=== PATIENT | female | born 1980 | race Caucasian/White ===

== ENCOUNTER 2020-09-05 11:17 | Outpatient (CLI) | payer MEDICARE, MEDICAID, SELFPAY ==
--- NOTE | ~2020-09-05 | XR_ITS ---
EXAMINATION: XR knee LT 3V DATE: 09/05/2020 11:32 INDICATION: Left knee pain. TECHNIQUE: 3 views of left knee were obtained. COMPARISON: None. FINDINGS: Bone alignment is normal. No fracture. There is mild tricompartmental osteoarthritis. No kn ee joint effusion. IMPRESSION: 1. Mild left knee osteoarthritis. Reviewed, dictated and finalized at location A. COLLECTOR
--- NOTE | ~2020-09-05 | XR_ITS ---
EXAMINATION: XR knee RT 3V DATE: 09/05/2020 11:32 INDICATION: Right knee pain. TECHNIQUE: 3 views of right knee were obtained. COMPARISON: None. FINDINGS: Bone alignment is normal. No fracture. There is mild tricompartmental osteoarthritis. No kn ee joint effusion. IMPRESSION: 1. Mild right knee osteoarthritis. Reviewed, dictated and finalized at location A. NG MACHINE ADJUSTER
== END 2020-09-05 11:18 | disposition home or self-care (01) ==
PROVIDERS: PCP Internal Medicine; Visit Provider Nurse Practitioner
DX: M25.569 Pain in unspecified knee (principal); M17.0 Bilateral primary osteoarthritis of knee
CPT/HCPCS: 73562

== ENCOUNTER 2021-07-03 12:26 | Emergency (ER) | payer MEDICARE, MEDICAID, SELFPAY ==
--- NOTE | ~2021-07-03 | XR_ITS ---
EXAMINATION: XR chest 1V portable EXAM DATE: 07/03/2021 19:18 INDICATION: COVID Fatigue 06/25,Weakness,Hx Asthma,Htn. TECHNIQUE: Portable AP frontal chest x-ray was obtained. There is no prior study for comparison. FINDINGS: The lungs are clear. There are no pleural effusions. Cardiac silhouette is prominent but magnified on this AP technique. There is no pneumothorax suspected. The bones and soft tissues are unremarkable. IMPRESSION: No acute cardiopulmonary findings. Reviewed, dictated and finalized at location A. 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
[2021-07-03 13:34] VITALS: BP 136/84; PULSE 59; RESP 18; TEMP 36.6; O2SAT 100
--- NOTE | 2021-07-03 15:24 | PC.NURSE ---
SPOKE WITH PT'S MOTHER WHO STATES THAT DR MELENDEZ WISHES HER TO BE SEEN IN ED BECAUSE SHE IS COVID +, HASN'T EATEN OR DRANK IN THE PAST FEW DAYS AND NEEDS AN XRAY.
--- NOTE | 2021-07-03 18:09 | PC.NURSE ---
CALLED REQUESTING THAT WE DON'T GIVE PT ANY REMDESIVIR BECAUSE THEY HAVE DONE A LOT OF RESEARCH ON IT AND THEY KNOW A FRIEND THAT WAS COVID +, GOT THE MEDICINE AND FROM IT
[2021-07-03 18:38] VITALS: BP 124/66; PULSE 51; RESP 18; TEMP 36.9; O2SAT 100
[2021-07-03] MEDS: SODIUM CHLORIDE 0.9% IV 1,000 ML 999 ML IV CONT (19:23)
[2021-07-03 19:33] LABS: Basophils Percent Auto 0.4 % (0.2-1.2); Hematocrit 43.9 % (37.0-47.0); Immature Granulocyte Absolute 0.04 K/mm3 (0.00-0.031); Immature Granulocyte Percent A 0.4 % (0-0.5); Lymphocytes Percent Auto 20.6 % (18.3-44.2); Mean Corpuscular HGB Conc 31.9 g/dl (32-36); Mean Corpuscular Hemoglobin 26.8 pg (26-34); Mean Corpuscular Volume 83.9 fl (80-100); Mean Platelet Volume 10.9 fl (7.4-10.4); Monocytes Absolute Auto 0.6 K/mm3 (0.1-0.6); Monocytes Percent Auto 5.9 % (2.6-8.5); Neutrophils Absolute Auto 7.8 K/mm3 (1.3-6.7); Neutrophils Percent Auto 72.7 % (45.5-73.1); Platelet Count Result 262 k/mm3 (150-375); Red Blood Count 5.23 M/mm3 (4.2-5.4); Red Cell Distribution Width 14.6 % (11.5-14.5); White Blood Count 10.7 K/mm3 (4.5-10.0)
[2021-07-03 19:43] LABS: Alanine Aminotransferase 37 U/L (4-35); Albumin Level 4.6 g/dL (3.5-5.1); Alkaline Phosphatase 104 U/L (38-126); Anion Gap 11 mmol/L (8-16); Aspartate Amino Transferase 44 U/L (14-36); Bilirubin,Total 0.5 mg/dL (0.2-1.3); Blood Urea Nitrogen 14 mg/dL (7-17); Calcium 9.2 mg/dL (8.4-10.2); Carbon Dioxide 30 mmol/L (22-30); Chloride 100 mmol/L (98-107); Estimated CRCL calculation 120 ml/min; Estimated Glomerular Filt Rate > 60; Glucose 115 mg/dL (65-110); Potassium 3.6 mmol/L (3.4-5.0); Sodium 141 mmol/L (137-145)
--- NOTE | 2021-07-03 20:27 | ED.GENADULT ---
HPI - General Adult General Chief complaint: Weakness <VIKTORIA Agudelo Last Filed: 07/03/21 20:36> Stated complaint: covid+/headache/weakaness <VIKTORIA Agudelo Last Filed: 07/03/21 20:36> Time Seen by Provider: 07/03/21 18:37 <Winston Simpson PA-C - Last Filed: 07/03/21 20:36> Source: patient <VIKTORIA Agudelo Last Filed: 07/03/21 20:36> Mode of arrival: wheelchair <VIKTORIA Agudelo Last Filed: 07/03/21 20:36> Limitations: no limitations <VIKTORIA Agudelo Last Filed: 07/03/21 20:36> History of Present Illness HPI narrative: Patient is a 40-year-old female with chief complaint of fatigue, headache, 1 episode of loose stool and feeling warm. Patient reports that she tested positive for Covid on June 17. Patient reports she has not taken any medications to alleviate her symptoms at this time. Patient reports that she is unvaccinated. Patient reports that she feels that her Covid symptoms should be resolved at this point. Patient denies chest pain or shortness of breath. Patient denies any neurological deficits. Patient denies any head impact, change in vision or hearing. <Winston Simpson PA-C - Last Filed: 07/03/21 20:36> Related Data Home medications: Home Medications Medication Instructions Recorded Confirmed hydrocodone 7.5 mg-acetaminophen 1 tablet PO Q6H PRN 06/08/19 06/11/21 325 mg tablet lactobacillus combination no.8 3 3,000 mmu cells PO DAILY 06/08/19 06/11/21 billion cell capsule linaclotide 145 mcg capsule 145 mcg PO DAILY 06/08/19 06/11/21 multivitamin 1 tablet PO DAILY 06/08/19 06/11/21 cyclobenzaprine 10 mg tablet 10 mg PO BID PRN tablet 10/19/19 06/11/21 <VIKTORIA Agudelo Last Filed: 07/03/21 20:36> Allergies/adverse reactions: Allergies Allergy/AdvReac Type Severity Reaction Status Date / Time NSAIDS (Non-Steroidal Allergy unknown Verified 07/03/21 18:44 Anti-Inflamma <Winston Simpson PA-C - Last Filed: 07/03/21 20:36> Review of Systems Review of Systems: CONSTITUTIONAL: Reports fatigue denies fever, chills, or sweats. EYES: Denies visual changes, redness, or discharge. ENT: Denies rhinorrhea, congestion, sore throat, or otalgia. CARDIOVASCULAR: Denies chest pain, palpitations, or edema. RESPIRATORY: Denies cough or dyspnea. GASTROINTESTINAL: Denies abdominal pain, nausea, vomiting, or persistent diarrhea. GENITOURINARY: Denies dysuria or hematuria. SKIN: Denies rash or itching. MUSCULOSKELETAL: Denies back pain, joint pain, or myalgia. NEUROLOGIC: Reports headache, denies numbness, dizziness PSYCHIATRIC: Denies anxiety or depression. <Winston Simpson PA-C - Last Filed: 07/03/21 20:36> [facility] Past Medical History Medical History: Medical History (Updated 07/03/21 @ 20:32 by Winston Simpson PA-C) Allergies Arthritis Asthma Chicken pox Chronic bronchitis Constipation Depression Diarrhea Heartburn Hemorrhoids Hernia Herniated disc History of blood clots HTN (hypertension) Migraine headache Ovarian mass removed Pneumonia Right knee pain Tumors <Winston Simpson PA-C - Last Filed: 07/03/21 20:36> Surgical History Surgical History: Surgical History (Updated 06/11/21 @ 08:44 by Magalie Blake CMA) H/O hernia repair H/O toe surgery 04/12/2021 History of removal of laparoscopic gastric banding device <Winston Simpson PA-C - Last Filed: 07/03/21 20:36> Family History Family History: Family History Sibling Hypertension Mother Hypertension History of varicose veins Gout Other Diabetes mellitus Family history of allergic disorder Family history of malignant neoplasm of male breast <Winston Simpson PA-C - Last Filed: 07/03/21 20:36> Social History Social History: Social History Smoking status: Never smoker Alcohol intake:
--- NOTE | 2021-07-03 20:38 | PC.NURSE ---
Spoke with mother, gave update per emergency contacts.
[2021-07-03 21:05] VITALS: BP 117/86; PULSE 52; RESP 18; TEMP 36.9; O2SAT 97
== END 2021-07-03 21:05 | disposition home or self-care (01) ==
PROVIDERS: Physician Assistant; Emergency Provider General Practice; PCP Internal Medicine
DX: U07.1 COVID-19 (principal)
CPT/HCPCS: 36415; 71045; 80053; 85025; 96361; 96374; 96375; 99284; J0131; J1100; J7030

== ENCOUNTER 2022-05-16 11:24 | Outpatient (CLI) | payer MEDICARE, MEDICAID, SELFPAY ==
[2022-05-16 13:06] LABS: Basophils Absolute Auto 0.1 K/mm3 (0.0-0.1); Basophils Percent Auto 0.7 % (0.2-1.2); Eosinophils Absolute Auto 0.3 K/mm3 (0-0.3); Eosinophils Percent Auto 2.4 % (0-4.4); Hematocrit 36.3 % (37.0-47.0); Hemoglobin 10.5 g/dL (12.0-15.0); Immature Granulocyte Absolute 0.03 K/mm3 (0.00-0.031); Immature Granulocyte Percent A 0.3 % (0-0.5); Lymphocytes Absolute Auto 3.26 K/mm3 (0.9-3.2); Lymphocytes Percent Auto 28.7 % (18.3-44.2); Mean Corpuscular HGB Conc 28.9 g/dl (32-36); Mean Corpuscular Hemoglobin 21.4 pg (26-34); Mean Corpuscular Volume 74.1 fl (80-100); Mean Platelet Volume 11.1 fl (7.4-10.4); Monocytes Absolute Auto 0.9 K/mm3 (0.1-0.6); Monocytes Percent Auto 7.8 % (2.6-8.5); Neutrophils Absolute Auto 6.8 K/mm3 (1.3-6.7); Neutrophils Percent Auto 60.1 % (45.5-73.1); Platelet Count Result 381 k/mm3 (150-375); Red Cell Distribution Width 18.2 % (11.5-14.5); White Blood Count 11.4 K/mm3 (4.5-10.0)
[2022-05-16 13:12] LABS: Alanine Aminotransferase 36 U/L (6-35); Albumin Level 4.4 g/dL (3.5-5.1); Alkaline Phosphatase 188 U/L (38-126); Anion Gap 8 mmol/L (8-16); Aspartate Amino Transferase 47 U/L (14-36); Bilirubin,Total 0.2 mg/dL (0.2-1.3); Blood Urea Nitrogen 10 mg/dL (7-17); Calcium 8.9 mg/dL (8.4-10.2); Carbon Dioxide 32 mmol/L (22-30); Chloride 101 mmol/L (98-107); Estimated Glomerular Filt Rate > 60; Glucose 93 mg/dL (65-110); Potassium 4.4 mmol/L (3.4-5.0); Sodium 141 mmol/L (137-145)
== END 2022-05-16 11:25 | disposition home or self-care (01) ==
LOC: ANHGOSHLAB 11:27
PROVIDERS: PCP Internal Medicine; Visit Provider Nurse Practitioner
DX: D64.9 Anemia, unspecified (principal); Z13.29 Encounter for screening for other suspected endocrine disorder; I11.0 Hypertensive heart disease with heart failure
CPT/HCPCS: 36415; 80053; 85025

== ENCOUNTER 2023-05-15 13:12 | Outpatient (CLI) | payer MEDICARE, MEDICAID, SELFPAY ==
--- NOTE | ~2023-05-15 | XR_ITS ---
XR lumbar spine 2-3V DATE: 05/15/2023 13:54 INDICATION: Thoracic and lumbar back pain TECHNIQUE: AP, lateral, coned lateral lumbosacral views COMPARISON: August 05, 2017 MRI lumbar spine FINDINGS: Again noted are bilateral L5 pars interarticularis defects with grade 2 anterolisthesis of L5-S1. Moderate loss of interspace height at L4-5. There is moderately severe loss of interspace height at L5-S1, likely due to degenerative disc diseas e. No other fracture or bone destruction. The included lower thoracic and lumbar pedicles appear intact. Normal alignment at the sacroiliac joints. Surgical clips, right upper quadrant, likely due to cholecystectomy. IMPRESSION: Degenerative disc disease at L4-5 and particularly L5-S1 Bilateral L5 pars intra-articular is defects with grade 2 anterolisthesis at L5-S1 Reviewed, dictated and finalized at location B. OL BUS DISPATCHER IMPRESSION: Degenerative disc disease at L4-5 and particularly L5-S1 Bilateral L5 pars intra-articular is defects with grade 2 anterolisthesis at L5 -S1
--- NOTE | ~2023-05-15 | XR_ITS ---
XR thoracic spine 3V DATE: 05/15/2023 13:54 INDICATION: Thoracic, lumbar and cervical spine pain TECHNIQUE: AP, lateral, swimmer views COMPARISON: None FINDINGS: Severe degenerative disease at C6-7. Very mild thoracic dextroscoliosis. No fracture or dislocation or bone destruction of the thoracic spine. The thoracic pedicles are intac t. No paraspinal soft tissue thickening. There is mild degenerative spurring of the lower thoracic spine. Surgical clips, right upper quadrant, likely due to cholecystectomy. IMPRESSION: Very mild thoracic dextroscoliosis Mild degenerative spurring of the lower thoracic spine Reviewed, dictated and finalized at location B. TH SAFETY SPECIALIST
--- NOTE | ~2023-05-15 | XR_ITS ---
CORRECTED REPORT Exam description [facility] [place] 05/18/23 This report was recreated on 05/18/23. Original report was AGENT XR cervical spine 2-3V DATE: 05/15/2023 13:54 INDICATION: Neck pain, cervical radiculopathy TECHNIQUE: AP, open-mouth, lateral, swimmer views COMPARISON: 11/07/2015 MR cervical spine 03/17/2014 cervical spine FINDINGS: There is straightening of the cervical spine which may be due to muscle spasm. C1 and C2 are normally aligned and the odontoid process is intact. No fracture or dislocation or locked facet or prevertebral soft tissue swelling. Mild degenerative disc disease at C5-6. Moderately severe degenerative disc disease at C6-7. Uncovertebral joint spurring is noted C5-6 and C6-7. A right temporal frontal parietal bone flap is secured by multiple plates and screws. IMPRESSION: Straightening of cervical spine Lower cervical spondylosis Reviewed, dictated and finalized at location B. AGENT MTDD
== END 2023-05-15 13:13 | disposition home or self-care (01) ==
PROVIDERS: PCP Internal Medicine; Visit Provider Pain Medicine Interventional Pain Medicine
DX: M51.16 Intervertebral disc disorders with radiculopathy, lumbar region (principal); M47.22 Other spondylosis with radiculopathy, cervical region
CPT/HCPCS: 72040; 72050; 72072; 72100

== ENCOUNTER 2023-08-03 13:54 | Outpatient (CLI) | payer MEDICARE, MEDICAID, SELFPAY ==
--- NOTE | ~2023-08-03 | XR_ITS ---
XR shoulder LT min 2V DATE: 08/03/2023 14:13 INDICATION: Left shoulder pain TECHNIQUE: 4 views COMPARISON: None FINDINGS: No fracture or dislocation, periosteal reaction or bone destruction or abnormal soft tissue calcification. IMPRESSION: Negative Reviewed, dictated and finalized at location B. PAPER WRITER IMPRESSION: Negative
--- NOTE | ~2023-08-03 | XR_ITS ---
XR shoulder RT min 2V DATE: 08/03/2023 14:12 INDICATION: Right shoulder pain TECHNIQUE: 4 views COMPARISON: None FINDINGS: No fracture or dislocation, periosteal reaction or bone destruction or abnormal soft tissue calcification. IMPRESSION: No significant abnormality Reviewed, dictated and finalized at location B. ANET SPECIALIST IMPRESSION: No significant abnormality
== END 2023-08-03 13:55 | disposition home or self-care (01) ==
PROVIDERS: PCP Internal Medicine; Visit Provider Pain Medicine Interventional Pain Medicine
DX: M25.511 Pain in right shoulder (principal); M25.512 Pain in left shoulder
CPT/HCPCS: 73030

== ENCOUNTER 2023-09-11 12:53 | Outpatient (CLI) | payer MEDICARE, MEDICAID, SELFPAY ==
--- NOTE | ~2023-09-11 | MR_ITS ---
EXAMINATION: MR shoulder RT wo con DATE: 09/11/2023 13:35 INDICATION: Right shoulder pain TECHNIQUE: Magnetic resonance imaging (MRI) of the right shoulder was performed without intravenous c ontrast. Sequences included axial PD-weighted FS FSE, coronal oblique PD-weighted FS FSE, coronal obl ique T2-weighted FS FSE, sagittal PD-weighted FS FSE, and sagittal T1-weighted SE. COMPARISON: None. FINDINGS: Coracoacromial arch: The acromion undersurface is curved in morphology (type II). The coracoacromial ligament is normal. M inimal acromioclavicular osteoarthritis. Rotator cuff: Mild tendinopathy without tear at the conjoined portion of the supraspinatus and infraspinatus tendon s. The teres minor and subscapularis tendons are normal. Normal rotator cuff muscle bulk and signal. There is replacement of the normal T1 hyperintense fat signal at the rotator cuff interval with thick ened low signal intensity tissue which can be seen with adhesive capsulitis. Biceps tendon, glenoid labrum and glenohumeral cartilage: Long head of the biceps tendon is normal. Glenoid labrum is normal. Glenohumeral cartilage is normal. Fluid: Physiologic amount of fluid in the glenohumeral joint and biceps tendon sheath. No loose osteochondr al bodies. No abnormal fluid signal in the subacromial/subdeltoid bursa to suggest bursitis. Bones: Normal marrow signal with no edema, fracture or abnormal marrow replacing process. IMPRESSION: 1. Mild tendinopathy without tear at the conjoined portion of the supraspinatus and infraspinatus ten dons. 2. Thickened low signal intensity soft tissue replacing the normal fat at the rotator cuff interval w hich can be seen with adhesive capsulitis which is a clinical diagnosis. Reviewed, dictated and finalized at location B. IMPRESSION: 1. Mild tendinopathy without tear at the conjoined portion of the supraspinatus and infraspinatus tendons. 2. Thickened low signal intensity soft tissue replacing the normal fat at the r otator cuff interval which can be seen with adhesive capsulitis which is a clin ical diagnosis.
== END 2023-09-11 12:54 | disposition home or self-care (01) ==
PROVIDERS: PCP Internal Medicine; Visit Provider Pain Medicine Interventional Pain Medicine
DX: M75.21 Bicipital tendinitis, right shoulder (principal)
CPT/HCPCS: 73221

== ENCOUNTER 2023-11-21 10:09 | Outpatient (CLI) | payer MEDICARE, MEDICAID, SELFPAY ==
--- NOTE | ~2023-11-21 | XR_ITS ---
Lumbosacral Spine: AP and lateral views Clinical History: Pain Findings: Suspected bilateral L5 pars interarticularis defects, with 15 mm anterolisthesis of L5 over S1. There is moderate to advanced facet arthropathy throughout the lumbar spine. There is moderate d egenerative disc narrowing at L4-L5 and L5-S1. The sacroiliac joints are normally outlined. Impression: Probable bilateral L5 pars interarticularis defects, with 15 mm anterolisthesis of L5 over S1. [id number] degenerative spondylosis otherwise, as detailed above. Reviewed, dictated and finalized at location . Impression: Probable bilateral L5 pars interarticularis defects, with 15 mm anterolisthesis of L5 over S1. [id number] degenerative spondylosis otherwise, as detailed above.
--- NOTE | ~2023-11-21 | XR_ITS ---
Thoracic spine: Clinical Indication: Radiculopathy AP and lateral views were performed. No fracture is seen. There is normal alignment of the vertebrae. Mild degenerative disc changes are present thoracic spine. Paravertebral soft tissues appear normal. Impression: Mild diffuse degenerative disc changes. Reviewed, dictated and finalized at [facility]. Impression: Mild diffuse degenerative disc changes.
== END 2023-11-21 10:10 | disposition home or self-care (01) ==
LOC: ANHIMG 10:10
PROVIDERS: PCP Internal Medicine; Visit Provider Pain Medicine Interventional Pain Medicine
DX: M43.17 Spondylolisthesis, lumbosacral region (principal); M47.897 Other spondylosis, lumbosacral region; M51.34 Other intervertebral disc degeneration, thoracic region
CPT/HCPCS: 72072; 72100

== ENCOUNTER 2024-01-05 11:15 | Outpatient (CLI) | payer MEDICARE, MEDICAID, SELFPAY ==
--- NOTE | ~2024-01-05 | MR_ITS ---
Procedure: MR shoulder LT wo con Ordering provider: Jignesh Darling MD History: . LEFT SHOULDER PAIN . Comparison: August 26, 2009 Technique: MRI left shoulder without contrast. FINDINGS: ACROMIOCLAVICULAR JOINT: Mild arthropathy. No medial coracoacromial arch stenosis. ROTATOR CUFF: The supraspinatus tendon is normal in signal without evidence for tendinosis or tear. N o subacromial subdeltoid bursitis. No evidence for subcoracoid impingement or subscapularis tendinosi s or tear. PROXIMAL BICEPS TENDON: The proximal biceps tendon and biceps labral complex are normal. The rotator interval is normal as visualized without intraarticular contrast. INFERIOR GLENOHUMERAL LIGAMENT COMPLEX: Normal anterior and posterior bands. Normal axillary pouch. LABRUM: The superior labrum is normal. The anteroinferior labrum is normal. The posterior labrum is normal. BONES: Small area of high signal on T2-weighted images which may indicate bone contusion adjacent to the insertion of the subscapularis tendon suggestive of tendinosis. Otherwise, Marrow signal is othe rwise normal. GLENOHUMERAL JOINT SPACE: The glenohumeral joint space shows irregularity of the cartilage which may indicate osteoarthritic changes with narrowing of the joint space. No joint effusion. SUPERFICIAL AND DEEP SOFT TISSUES: Otherwise, normal. No paralabral cyst. IMPRESSION: Mild Osteoarthritic changes of the glenohumeral joint. Highly suggestive bone contusion with adjacent tendinosis of the subscapularis tendon. Reviewed, dictated and finalized at location A.
== END 2024-01-05 11:16 | disposition home or self-care (01) ==
PROVIDERS: PCP Internal Medicine; Visit Provider Pain Medicine Interventional Pain Medicine
DX: M19.012 Primary osteoarthritis, left shoulder (principal)
CPT/HCPCS: 73221

== ENCOUNTER 2024-04-19 13:16 | Outpatient (CLI) | payer MEDICARE, MEDICAID, SELFPAY ==
--- NOTE | ~2024-04-19 | MR_ITS ---
EXAMINATION: MR lumbar spine wo con DATE: 04/19/2024 14:12 INDICATION: Lumbar radiculopathy. TECHNIQUE: Magnetic resonance imaging (MRI) of the lumbar spine was performed without intravenous con trast. Sequences included sagittal T2-weighted FSE, sagittal T2-weighted FS FSE, sagittal T1-weighted FSE, and axial T2-weighted FSE. COMPARISON: Lumbar spine MRI 08/05/2017 FINDINGS: There are chronic bilateral L5 pars defects. There is 11 mm anterolisthesis of L5 on S1. Th ere is mild chronic height loss of L5 vertebral body posteriorly. There is mild chronic anterior wedg ing of T11 and T12 vertebral bodies. There is mildly decreased disc height at L3-L4 and L4-L5 and sev erely decreased disc at L5-S1. The distal spinal cord signal intensity is normal. The conus medullari s is at L1-L2. The following disc levels are specifically discussed: L1-L2: The disc does not extend beyond the endplate margin. There is mild bilateral facet joint osteo arthritis. There is no neural foraminal stenosis. There is no central canal stenosis. L2-L3: The disc does not extend beyond the endplate margin. There is moderate bilateral facet joint o steoarthritis. There is no neural foraminal stenosis. There is no central canal stenosis. L3-L4: The disc is bulging. There is mild bilateral facet joint osteoarthritis. There is mild bilater al neural foraminal stenosis. There is mild central canal stenosis. L4-L5: The disc is bulging with superimposed central extrusion. There is mild bilateral facet joint o steoarthritis. There is mild bilateral neural foraminal stenosis. There is mild central canal stenosi s. L5-S1: The disc is bulging and has an annular fissure. There is moderate bilateral facet joint osteoa rthritis. There is moderate bilateral neural foraminal stenosis. There is no central canal stenosis. IMPRESSION: 1. Chronic bilateral L5 pars defects with grade 2 anterolisthesis of L5 on S1. 2. Severe lower lumbar spondylosis, slightly worsened from 08/05/2017. Reviewed, dictated and finalized at location A.
--- NOTE | ~2024-04-19 | MR_ITS ---
EXAMINATION: MR cervical spine wo con DATE: 04/19/2024 14:11 INDICATION: Radiculopathy. TECHNIQUE: Magnetic resonance imaging (MRI) of the cervical spine was performed without intravenous c ontrast. COMPARISON: Cervical spine MRI 11/07/2015. FINDINGS: Bone alignment is normal. There is mild chronic anterior wedging of C6 vertebral body. Ther e is mildly decreased disc height at C5-C6, moderately decreased disc height at C6-C7, and mildly dec reased disc height at C7-T1. The spinal cord signal intensity is normal. The following disc levels ar e specifically discussed: C2-C3: The disc does not extend beyond the endplate margin. There is no uncovertebral joint osteoarth ritis. There is no facet joint osteoarthritis. There is no neural foraminal stenosis. There is no meche tral canal stenosis. C3-C4: The disc is bulging. There is mild bilateral uncovertebral joint osteoarthritis. There is no f acet joint osteoarthritis. There is no neural foraminal stenosis. There is mild central canal stenosi s. C4-C5: The disc is bulging. There is mild bilateral uncovertebral joint osteoarthritis. There is no f acet joint osteoarthritis. There is no neural foraminal stenosis. There is mild central canal stenosi s. C5-C6: The disc is bulging. There is moderate right and severe left uncovertebral joint osteoarthriti s. There is mild bilateral facet joint osteoarthritis. There is mild bilateral neural foraminal steno sis. There is mild central canal stenosis. C6-C7: The disc is bulging. There is severe bilateral uncovertebral joint osteoarthritis. There is no facet joint osteoarthritis. There is mild bilateral neural foraminal stenosis. There is mild central canal stenosis. C7-T1: There is a central extrusion. There is mild bilateral uncovertebral joint osteoarthritis. Ther e is severe bilateral facet joint osteoarthritis. There is mild bilateral neural foraminal stenosis. There is mild central canal stenosis. IMPRESSION: 1. Moderate cervical spondylosis, worsened from 11/07/2015. Reviewed, dictated and finalized at location A.
--- NOTE | ~2024-04-19 | MR_ITS ---
EXAMINATION: MR thoracic spine wo con DATE: 04/19/2024 14:12 INDICATION: Thoracic radiculopathy. TECHNIQUE: Magnetic resonance imaging (MRI) of the thoracic spine was performed without intravenous c ontrast. COMPARISON: Thoracic spine MRI 08/05/2017 FINDINGS: There is 5 degrees dextrocurvature of thoracic spine. There is mild chronic anterior wedgin g of T11 and T12 vertebral bodies. There is mildly decreased disc height at T10-T11 and T11-T12. Ther e is multilevel facet joint osteoarthritis, severe in the upper thoracic spine. On the left, there is mild neural foraminal stenosis at T2-T3 and T3-T4. At T4-T5, there is a left central protrusion with mild central canal stenosis. At T6-T7, there is a central extrusion with mild central canal stenosis . At T7-T8, there is a central extrusion with mild central canal stenosis. At T8-T9, there is a right central extrusion with mild central canal stenosis. At T10-T11, the disc is bulging with mild centra l canal stenosis. At T11-T12, there is a central protrusion with mild central canal stenosis. The spi nal cord signal intensity is normal. The conus medullaris is at L1. IMPRESSION: 1. Mild thoracic spondylosis, stable from 08/05/2017. Reviewed, dictated and finalized at location A.
== END 2024-04-19 13:17 | disposition home or self-care (01) ==
LOC: ANHIMG 13:18
PROVIDERS: PCP Internal Medicine; Visit Provider Pain Medicine Interventional Pain Medicine
DX: M47.812 Spondylosis without myelopathy or radiculopathy, cervical region (principal); M89.78 Major osseous defect, other site; M47.816 Spondylosis without myelopathy or radiculopathy, lumbar region; M43.17 Spondylolisthesis, lumbosacral region; M47.814 Spondylosis without myelopathy or radiculopathy, thoracic region
CPT/HCPCS: 72141; 72146; 72148

== ENCOUNTER 2024-08-10 11:20 | Outpatient (CLI) | payer MEDICARE, MEDICAID, SELFPAY ==
[2024-08-10 11:52] LABS: Alanine Aminotransferase 30 U/L (6-35); Albumin Level 4.6 g/dL (3.5-5.1); Alkaline Phosphatase 66 U/L (38-126); Anion Gap 10 mmol/L (4-12); Aspartate Amino Transferase 29 U/L (14-36); Bilirubin,Total 0.6 mg/dL (0.2-1.3); Blood Urea Nitrogen 21 mg/dL (7-17); Calcium 9.1 mg/dL (8.4-10.2); Carbon Dioxide 29 mmol/L (22-30); Chloride 101 mmol/L (98-107); Estimated Glomerular Filt Rate > 60; Glucose 61 mg/dL (65-110); Sodium 140 mmol/L (137-145)
--- OUTSIDE RECORDS SUMMARY | 2024-08-10 11:55 | XMS_ITS | Clinical Summary ---
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 Name Role Phone Unavailable Primary Care Provider Unavailabl e Social History Tobacco Use Types Packs/Day Years Used Date Smoking Tobacco: Never Assessed Comments Unknown Sex and Gender Information Value Date Recorded Sex Assigned at Not on file Legal Sex Female 6:42 PM CDT Gender Identity Not on file Sexual Orientation Not on file Plan of Treatment Health Maintenance Due Date Last Done Comments Cervical Cancer Screening Pa p Smear (Age 30 to 64) Every 3 Years 1979 Annual Physical 11/27/1982 Hepatitis C 11/27/1997 DTaP, Tdap and Td Vaccines ( 1 - Tdap) 11/27/1998 Hepatitis B Vaccines (1 of 3 - 19+ 3-dose series) 11/27/1998 Cervical Cancer Screening Pa p with HPV Testing (Age 30 to 64) Every 5 Years 11/27/2009 Cervical Cancer Screening with HPV 11/27/2009 Mammogram Screening 2019 COVID-19 Vaccine (2023-2 5 season) 2024 Influenza Adult (#1) 2024 HPV Vaccines Aged Out No longer eligi ble based on patient's age to complete this topic Meningococcal B Vaccine Aged Out No l onger eligible based on patient's age to complete this topic Meningococcal Vaccine Aged Out No ramiro suzanne eligible based on patient's age to complete this topic Pneumococcal Vaccine: Pediat rics (0 to 5 Years) and At-Risk Patients (6 to 64 Years) Aged Out No longer eligible b ased on patient's age to complete this topic RSV Immunizations Under 20 Months Aged Out No longer eligible based on patient's age to complete this topic
--- OUTSIDE RECORDS SUMMARY | 2024-08-10 11:55 | XMS_ITS | Referral Summary ---
Author Organization [facility] Address [address] [place] [address] Care Team Providers Care Vegetable Loader Name Role Phone Henry Ruiz DO Primary Care Provider [phone] Source Comments [facility],non-owned Affiliates and Associated Physician Practices is amultiple site organization consisting of ambulatory clinics and hospital sitesin [place], [place], [place] and [place]. This disclosure is being madepursuant to the Care Everywhere program and may not contain all information available regarding this patient. Last updated 18.[facility] Encounters Date Type Department Care Team Description 05/28/2024 Refill [facility] [address], [address] [place] [address] Hortensia Covington, MARKETING STRATEGIST-COAL WASHER Refill Request from Last 3 Months Allergies Active Allergy Reactions Criticality Noted Date Comments Morphine Nausea and/or Vomiting,Headache 05/23/2022 Nsaids GI Discomfort High 02/02/2018 Had gastric bypass and can't take oral But can take IV Medications * Be aware that medications may not be up to date on this document. Alwaysverify current medications with the patient. Medication Sig Dispensed Refills Start Date End Date Status cyclobenzaprine (FLEXERIL) 10 MG tablet Take 1 (one) tablet by mouth every 8 hours as needed 1 Active erenumab-aooe (AIMOVIG) 70 MG/ML auto injector pen Inject 1 mL subcutaneously every 30 days Active nitroGLYCERIN (NITROSTAT) 0.4 MG tablet Dissolve 1 (one) tablet under the tongue every 5 minutes as needed for Angina 07/19/2021 Active Additional Information Patient not taking.Reported on 12/14/2023 Probiotic Product (PROBIOTIC & ACIDOPHILUS EX ST) CAPS Take 1 capsule by mouth once daily 07/19/2021 Active atorvastatin (LIPITOR) 40 MG tablet Take 1 (one) tablet by mouth at bedtime 07/19/2021 Active hydrOXYzine HCl (ATARAX) 10 MG tablet Take 1 (one) tablet by mouth 2 times daily as needed for Itching Active butalbital-acetami nophen-caffeine (FIORICET) 50-325-40 MG tablet Take 1 (one) tablet by mouth every 8 hours as needed Active linaCLOtide (LINZESS) 145 MCG capsuleIndications :Chronic constipation Take 1 (one) capsule by mouth daily before breakfast Take on an empty stomach at least 30 minutes prior to first meal of the day. 90 capsule 3 11/14/2021 Active Cyanocobalamin (VITAMIN B-12 PO) Take 1 tablet by mouth once daily Active DULoxetine (Cymbalta) 20 MG capsule Take 1 (one) capsule by mouth once daily Take with 60mg capsule to equal 80mg daily 04/09/2022 Active DULoxetine (Cymbalta) 60 MG capsule Take 1 (one) capsule by mouth once daily Take with 20mg capsule to equal 80mg daily Active lisinopril (Prinivil; Zestril) 5 MG tablet Take 1 (one) tablet by mouth once daily 03/17/2022 Active nystatin (Mycostatin) 817661 UNIT/GM cream Apply to affected area 2 times daily underneath breast folds Active albuterol HFA (Proventil; Ventolin; Proair) 108 (90 Base) MCG/ACT inhaler Inhale 1 (one) puff by mouth every 4 hours as needed for Wheezing or Shortness of Breath Active Biotin 1000 MCG Take 1 (one) tablet by mouth once daily Active oxyCODONE-acetamin ophen (Percocet) 10-325 MG tablet TAKE 1 TABLET BY MOUTH TWICE DAILY NEEDED FOR 30 DAYS 08/27/2022 Active Ferrous Sulfate (IRON PO) Take 10 mg by mouth once daily Active ascorbic acid (Vitamin C) 125 MG TABS half tablet Take by mouth once daily Active Mounjaro 7.5 MG/0.5ML injection Inject 12.5 mg subcutaneously every 7 days 12/02/2023 Active metoclopramide (Reglan) 10 MG tablet TAKE 1 TABLET BY MOUTH THREE TIMES DAILY BEFORE MEALS 90 tablet 02/02/2024 Active dexlansoprazole (Dexilant) 30 MG capsule TAKE 1 CAPSULE BY MOUTH EVERY DAY 90 capsule 05/30/2024 Active Active Problems Problem Noted Date Diagnosed Date History of gastric bypass 05/22/2022 Subarachnoid bleed 07/05/2021 BATES (nonalcoholic steatohepatitis) 07/01/2021 NAFLD (nonalcoholic fatty liver disease) 021 Overview (05/20/2021): 05/17/21 Fibroscan CAP 376, LSM 9.5 kPa Acute recurrent pancreatitis 06/11/2020 Abdominal bloating 10/04/2019 Gastroesophageal reflux disease 10/04/2019 Epigastric pain 05/04/2018 Hematochezia 05/04/[address] of the abdomen 04/27/2018 Abdominal pain, generalized 04/27/2018 Internal hernia 04/27/2018 Nausea and vomiting 04/27/2018 Iron deficiency anemia 08/06/2017 Abdominal pain, LUQ (left upper quadrant) 2015 Nausea 10/21/2015 Morbid obesity 09/26/2015 Localized adiposity 09/26/2015 Morbid (severe) obesity due to excess calories 0 09/26/2015 Degeneration of cervical intervertebral disc Degeneration of lumbar or lumbosacral interverte bral disc 03/18/2011 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 Diabetes mellitus 10/26/2009 Left ovarian cyst Acute nonintractable headache Cerebral aneurysm rupture Essential (primary) hypertension Resolved Problems Problem Noted Date Diagnosed Date Resolved Date Abdominal pain, epigastric 05/22/2022 1 08/02/2021 Constipation 05/04/2018 07/29/2021 Social History Tobacco Use Types Packs/Day Years Used Date Smoking Tobacco: Never Smokeless Tobacco: Never Tobacco Cessation:Counseling Given: Not Answered Alcohol Use Standard Drinks/Week Comments No 0 (1 standard drink = 0.6 oz pur e alcohol) AUDIT-C Answer Date Recorded Q1: How often do you have a drink containing alc ohol? Never 07/04/2021 Average Number of Drinks Not on file 022 Frequency of Binge Drinking Not on file 11/2021 PHQ-2 Answer Date Recorded PHQ2 TOTAL SCORE 0 07/06/2021 Hunger Vital Sign Answer Date Recorded Within the past 12 months, y ou worried that your food would run out before you got the money to buy more. Never true 05/23/20 Within the past 12 months, t he food you bought just didn't last and you didn't have money to get more. Never true 05/23/2022 Sex and Gender Information Value Date Recorded Sex Assigned at Not on file Gender Identity Not on file Sexual Orientation Not on file Last Filed Vital Signs Vital Sign Reading Time Taken Comments Blood Pressure 124/82 05/05/2024 11:15 AM YARD ASSISTANT Pulse 76 05/05/2024 11:15 AM YARD ASSISTANT Temperature 36.1 C (96.9 F) 05/05/2024 11:15 AM YARD ASSISTANT Respiratory Rate 14 12/14/2023 8:20 AM CDT Oxygen Saturation 96% 05/05/2024 11: 15 AM YARD ASSISTANT Inhaled Oxygen Concentration - - Weight 69.3 kg (152 lb 12.8 oz) 024 11:15 AM YARD ASSISTANT Height 167.6 cm (5' 6 ) 05/05/2024 11:1 5 AM YARD ASSISTANT Body Mass Index 24.66 05/05/2024 11:15 AM YARD ASSISTANT Functional Status Functional Status Response Date of Assess ment Is person deaf or have serious hearing difficult y? No 05/24/2022 Is person blind or have serious difficulty seein g? No 05/24/2022 Does person have serious dif ficulty walking/climbing stairs? No 05/24/2022 Does person have difficulty dressing/bathing? No 05/24/2022 Does person have difficulty doing errands alone? No 05/24/2022 Cognitive Status Response Date of Assessm ent Does person have difficulty concentrating/remembering/making decisions? No 05/24/2022 Plan of Treatment Upcoming Encounters Date Type Department Care Team (Late st Contact Info) Description 08/30/2024 10:00 AM YARD ASSISTANT Appointment [facility] CAT SCAN [address] [place] [id number] Nicholas Peacock MD [address] [place] [address] 05/04/2025 11:00 AM YARD ASSISTANT Office Visit [facility] [address], [address] [place] [address] Blanca Kamara APRN-COAL WASHER [address] [facility] [address] [place] [address] Goals Goal Patient Goal Type Associated Problems Recent Progress Patient-Stated? Author Medication Management General On track( 022 1:05 PM CDT) Tu Jimenes, VU Note: Expected end date: ongoing Interventions: Take all medications as prescribed Let your doctor know right away about any changes in your medications Make sure to request a refill of your medication at least one week prior to your last dose Medical Devices Implanted Type Area Arranger Assembler Device Identifier Shelf Expiration Date Model / Serial / Lot Set Xtrn Drn 35cm 1.9mm 3-15cm Cath Inr Implanted:Qty: 1 on 07/08/2021 by Nicholas Peacock MD at [facility] N/A: Cranial Inte[employer] 02/26/2022 [id number] / / [id number] Sugita Titanium Aneurysm Clip Implanted:Qty: 1 on 07/08/2021 by Nicholas Peacock MD at [facility] Right: Cranial [employer] Seema 17-001-33 / [id number] / 101-SD Sugita Titanium Aneurysm Clip Implanted:Qty: 1 on 07/08/2021 by Nicholas Peacock MD at [facility] Right: [facility]ranial [facility] 17-001-87 / 38-TK / [id number] Graft Tissue Drgn + Bvn Clgn Mtrx 5x4in Implanted:Qty: 1 on 07/08/2021 by Nicholas Peacock MD at [facility] N/A: Cranial Inte[employer] 01/27/2024 [id number] / / [id number] Plate 2 Hl Lopro Crnmxf 15mm Str Lucio Implanted:Qty: 2 on 07/08/2021 by Nicholas Peacock MD at [facility] N/A: Cranial Jazmín [employer]omet 19-1005 / / Plate 4 Hl Lopro Crnmxf 22mm Lng Str Implanted:Qty: 1 on 07/08/2021 by Nicholas Peacock MD at [facility] N/A: Cranial Jazmín [employer] 19-1045 / / Cover Bur Hl 13.5mm Spne Bnt Implanted:Qty: 2 on 07/08/2021 by Nicholas Peacock MD at [facility] N/A: Cranial Jazmín [employer] 19-1019 / / Screw 1.5mm 4mm Slf Drl Xdr Crnmxf Implanted:Qty: 12 on 07/08/2021 by Nicholas Peacock MD at [facility] N/A: Cranial [employer] 91-6704 / / Explanted Type Area Arranger Assembler Device Identifier Shelf Expiration Date Model / Serial / Lot Cover Bur Hl 13.5mm Spne Bnt Explanted:Qty: 1 on 07/08/2021 by Nicholas Peacock MD at [facility] N/A: Cranial Jazmín [employer] 19-1019 / / Screw 1.5mm 4mm Slf Drl Xdr Crnmxf Explanted:Qty: 1 on 07/08/2021 by Nicholas Peacock MD at [facility] N/A: Cranial J[employer]mín [employer] 91-6704 / / Sugita Titanium Aneurysm Clip Explanted:Qty: 1 on 07/08/2021 by Nicholas Peacock MD at [facility] Right: Cranial Abundio Seema 17-006-27 / [id number] / 24-TK Procedures Procedure Name Priority Date/Time Associated Diagnosis Comments ZINC BLOOD Routine 06/03/2024 2:17 PM YARD ASSISTANT Morbid obesity (HCC) Bariatric surgery status Vitamin deficiency Vitamin D deficiency Postsurgical malabsorption (HCC) VITAMIN K1 Routine 06/03/2024 2:17 PM YARD ASSISTANT Morbid obesity (HCC) Bariatric surgery status Vitamin deficiency Vitamin D deficiency Postsurgical malabsorption (HCC) VITAMIN E Routine 06/03/2024 2:17 PM YARD ASSISTANT Morbid obesity (HCC) Bariatric surgery status Vitamin deficiency Vitamin D deficiency Postsurgical malabsorption (HCC) VITAMIN D 25-HYDROXY Routine 06/03/2024 2:17 PM YARD ASSISTANT Morbid obesity (HCC) Bariatric surgery status Vitamin deficiency Vitamin D deficiency Postsurgical malabsorption (HCC) VITAMIN B12 Routine 06/03/2024 2:17 PM YARD ASSISTANT Morbid obesity (HCC) Bariatric surgery status Vitamin deficiency Vitamin D deficiency Postsurgical malabsorption (HCC) VITAMIN B1 Routine 06/03/2024 2:17 PM YARD ASSISTANT Morbid obesity (HCC) Bariatric surgery status Vitamin deficiency Vitamin D deficiency Postsurgical malabsorption (HCC) VITAMIN A Routine 06/03/2024 2:17 PM YARD ASSISTANT Morbid obesity (HCC) Bariatric surgery status Vitamin deficiency Vitamin D deficiency Postsurgical malabsorption (HCC) PTH INTACT Routine 06/03/2024 2:17 PM YARD ASSISTANT Morbid obesity (HCC) Bariatric surgery status Vitamin deficiency Vitamin D deficiency Postsurgical malabsorption (HCC) MAGNESIUM BLOOD Routine 06/03/2024 2:17 PM YARD ASSISTANT Morbid obesity (HCC) Bariatric surgery status Vitamin deficiency Vitamin D deficiency Postsurgical malabsorption (HCC) IRON + TIBC PANEL Routine 06/03/2024 2:1 7 PM YARD ASSISTANT Morbid obesity (HCC) Bariatric surgery status Vitamin deficiency Vitamin D deficiency Postsurgical malabsorption (HCC) FOLATE Routine 06/03/2024 2:17 PM YARD ASSISTANT Morbid obesity (HCC) Bariatric surgery status Vitamin deficiency Vitamin D deficiency Postsurgical malabsorption (HCC) FERRITIN Routine 06/03/2024 2:17 PM YARD ASSISTANT Morbid obesity (HCC) Bariatric surgery status Vitamin deficiency Vitamin D deficiency Postsurgical malabsorption (HCC) COPPER BLOOD Routine 06/03/2024 2:17 PM YARD ASSISTANT Morbid obesity (HCC) Bariatric surgery status Vitamin deficiency Vitamin D deficiency Postsurgical malabsorption (HCC) COMPREHENSIVE METABOLIC PANEL Routine 06/03/2024 2:17 PM YARD ASSISTANT Morbid obesity (HCC) Bariatric surgery status Vitamin deficiency Vitamin D deficiency Postsurgical malabsorption (HCC) CBC W/O DIFFERENTIAL Routine 06/03/2024 2:17 PM YARD ASSISTANT Morbid obesity (HCC) Bariatric surgery status Vitamin deficiency Vitamin D deficiency Postsurgical malabsorption (HCC) EYE EXAM 03/10/2022 HEPATITIS C ANTIBODY Routine 05/17/2021 10:52 AM YARD ASSISTANT Abnormal LFTs from Last 3 Months or Most Recently Relevant to Health Maintenance Results * VITAMIN K1 (06/03/2024 2:17 PM YARD ASSISTANT) Vitamin K1 0.56 0.10 - 2.20 ng/mL [facility] ACCOUNT BILL Blood BLOOD SPECIMEN / Unknown 06/03/2024 2:17 PM YARD ASSISTANT 06/03/2024 Narrative [facility] ACCOUNT BILL - 06/07/2024 12:07 PM YARD ASSISTANT Test(s) 219785-[id number] K1 was developed and its performance characteristics determined by [facility]. It has not been cleared or approved by the Food and Drug Administration. Performed at: 01 - [address] [id number] Bone Process Operator: Araceli Cotter MD, Phone: [phone] Blanca Kamara MARKETING STRATEGIST-COAL WASHER LAB - CHEMIS TRY ORDERABLES [facility] ACCOUNT BILL [address] [place] [address] * ZINC BLOOD (06/03/2024 2:17 PM YARD ASSISTANT) Zinc, Plasma or Serum 68 44 - 115 ug/dL [facility] ACCOUNT BILL Comment:Detection Limit = 5 Blood BLOOD SPECIMEN / Unknown 06/03/2024 2:17 PM YARD ASSISTANT 06/03/2024 Narrative [facility] ACCOUNT BILL - 06/07/2024 6:06 AM YARD ASSISTANT Test(s) 071276-Lhmi, Plasma or Serum was developed and its performance characteristics determined by [facility]. It has not been cleared or approved by the Food and Drug Administration. Performed at: - [facility] [id number] Bone Process Operator: Araceli Cotter MD, Phone: [phone] Blanca Kamara [facility] - CHEMIS TRY ORDERABLES Performing Organization Address [facility] Co de Phone Number [facility] ACCOUNT BILL [address] [place] [address] * VITAMIN A (06/03/2024 2:17 PM YARD ASSISTANT) Vitamin A 33.7 20.1 - 62.0 ug/dL [facility] ACCOUNT BILL Comment: Reference intervals for vitamin [facility]. Individuals with vitamin A less than 20 ug/dL are considered vitamin A deficient and those with serum concentrations less than 10 ug/dL are considered severely deficient. This test was developed and its performance characteristics determined by [facility]. It has not been cleared or approved by the Food and Drug Administration. Blood BLOOD SPECIMEN / Unknown 06/03/2024 2:17 PM YARD ASSISTANT 06/03/2024 Narrative [facility] ACCOUNT BILL - 06/11/2024 12:06 PM YARD ASSISTANT Performed at: - [facility] [id number] Bone Process Operator: Araceli Cotter MD, Phone: [phone] Blanca Kamara [facility] LAB - CHEMIS TRY ORDERABLES Performing Organization Address City/[facility] Co de Phone Number [facility] ACCOUNT BILL [address] [place] [address] * (ABNORMAL) VITAMIN E (06/03/2024 2:17 PM YARD ASSISTANT) Vitamin E Alpha Tocopherol 8.1 7.0 - 25.1 mg/L [facility] ACCOUNT BILL Vitamin E Gamma Tocopherol 0.1(L) 0.5 - 5.5 mg/L [facility] ACCOUNT BILL Comment: Reference intervals for alpha and gamma-tocopherol determined from National Health and Nutrition Examination Survey, 1451-8044. Individuals with alpha-tocopherol levels less than 5.0 mg/L are considered vitamin E deficient. Blood BLOOD SPECIMEN / Unknown 06/03/2024 2:17 PM YARD ASSISTANT 06/03/2024 Narrative [facility] ACCOUNT BILL - 06/11/2024 12:06 PM YARD ASSISTANT Test(s) 503539-Mbxxvzx E(Alpha Tocopherol); 638913- Vitamin E(Gamma Tocopherol) was developed and its performance characteristics determined by [facility]. It has not been cleared or approved by the Food and Drug Administration. Performed at: - [address] [id number] Bone Process Operator: Araceli Cotter MD, Phone: [phone] Blanca Kamara APRN-COAL WASHER LAB - CHEMIS TRY ORDERABLES Performing Organization Address [facility] de Phone Number [facility] ACCOUNT BILL [address] [place] [address] * VITAMIN B1 (06/03/2024 2:17 PM YARD ASSISTANT) Vitamin B1 Whole Blood 174.0 66.5 - 200.0 nmol/L [facility] ACCOUNT [facility] Blood BLOOD SPECIMEN / Unknown 06/03/2024 2:17 PM YARD ASSISTANT 06/03/2024 Narrative [facility] ACCOUNT BILL - 06/07/2024 2:07 PM YARD ASSISTANT Test(s) 869247-Qyr. B1, Whole Blood was developed and its performance characteristics determined by [facility]. It has not been cleared or approved by the Food and Drug Administration. Performed at: - [address] [id number] Bone Process Operator: Araceli Cotter MD, Phone: [phone] Blanca MANNCOAL WASHER LAB - CHEMIS TRY ORDERABLES Performing Organization Address [facility] Co de Phone Number [facility] ACCOUNT BILL [address] [place] [address] * PTH INTACT (06/03/2024 2:17 PM YARD ASSISTANT) PTH Intact 37 15 - 65 pg/mL [facility] ACCOUNT BILL Blood BLOOD SPECIMEN / Unknown 06/03/2024 2:17 PM YARD ASSISTANT 06/03/2024 Narrative [facility] ACCOUNT BILL - 06/05/2024 12:05 PM YARD ASSISTANT Performed at: - [facility] [id number] Bone Process Operator: Gagandeep Gamble PhD, Phone: [phone] Blanca Kamara MARKETING STRATEGIST-COAL WASHER LAB - CHEMIS TRY ORDERABLES Performing Organization Address [facility] de Phone Number [facility] ACCOUNT BILL [address] [place] [address] * COPPER BLOOD (06/03/2024 2:17 PM YARD ASSISTANT) Copper 91 80 - 158 ug/dL [facility] ACCOUNT BILL Comment:Detection Limit = 5 Blood BLOOD SPECIMEN / Unknown 06/03/2024 2:17 PM YARD ASSISTANT 06/03/2024 Narrative [facility] ACCOUNT BILL - 06/07/2024 6:06 AM YARD ASSISTANT Test(s) 802352-Rpzkbm, Serum or Plasma was developed and its performance characteristics determined by [facility]. It has not been cleared or approved by the Food and Drug Administration. Performed at: - [address] [id number] Bone Process Operator: Araceli Cotter MD, Phone: [phone] Blanca Kamara APRN-COAL WASHER LAB - CHEMIS TRY ORDERABLES Performing Organization Address [facility] de Phone Number [facility] ACCOUNT BILL [address] [place] [address] * VITAMIN D 25-HYDROXY (06/03/2024 2:17 PM YARD ASSISTANT) Vitamin D, 25 Hydroxy 44.9 30.0 - 100.0 ng/mL [facility] ACCOUNT BILL Comment: Vitamin D deficiency has been defined by the [place] of Medicine and an Endocrine Society practice guideline as a level of serum 25-OH vitamin D less than 20 ng/mL (1,2). The Endocrine Society went on to further define vitamin D insufficiency as a level between 21 and 29 ng/mL (2). 1. IOM ([place] of Medicine). 2010. Dietary reference intakes for calcium and D. [place]: The National Academies Press. 2. Keren MF, Michael NC, Sunitha FINLEY, et al. Evaluation, treatment, and prevention of vitamin D deficiency: an Endocrine Society clinical practice guideline. JCEM. 2010; 96(1):1911-30. Blood BLOOD SPECIMEN / Unknown 06/03/2024 2:17 PM YARD ASSISTANT 06/03/2024 Narrative [facility] ACCOUNT BILL - 06/04/2024 7:07 AM YARD ASSISTANT Performed at: 01 - [address] [id number] Bone Process Operator: Gagandeep Gamble PhD, Phone: [phone] Blanca Kamara APRN-COAL WASHER LAB - CHEMIS TRY ORDERABLES [facility] ACCOUNT BILL [address] [place] [address] * (ABNORMAL) CBC W/O DIFFERENTIAL (06/03/2024 2:17 PM YARD ASSISTANT) WBC 5.8 3.4 - 10.8 x10E3/uL [facility] ACCOUNT BILL RBC 4.50 3.77 - 5.28 x10E6/uL [facility] ACCOUNT BILL Hemoglobin 12.7 11.1 - 15.9 g/dL [facility] ACCOUNT BILL Hematocrit 42.1 34.0 - 46.6 % [facility] ACCOUNT BILL MCV 94 79 - 97 fL [facility] ACCOUNT BILL MCH 28.2 26.6 - 33.0 pg [facility] ACCOUNT BILL MCHC 30.2(L) 31.5 - 35.7 g/dL [facility] ACCOUNT BILL RDW 13.2 11.7 - 15.4 % [facility] ACCOUNT BILL Platelet Count 280 150 - 450 x10E3/uL [facility] ACCOUNT BILL Blood BLOOD SPECIMEN / Unknown 06/03/2024 2:17 PM YARD ASSISTANT 06/03/2024 Narrative [facility] ACCOUNT BILL - 06/04/2024 7:07 AM YARD ASSISTANT Performed at: - [facility] [address] [id number] Bone Process Operator: Gagandeep Gamble PhD, Phone: [phone] Blanca Kamara APRN-COAL WASHER LAB - HEMATO LOGY ORDERABLES [facility] ACCOUNT BILL [address] [place] [address] * (ABNORMAL) COMPREHENSIVE METABOLIC PANEL (06/03/2024 2:17 PM YARD ASSISTANT) Glucose 84 70 - 99 mg/dL [facility] ACCOUNT BILL BUN 23 6 - 24 mg/dL [facility] ACCOUNT BILL Creatinine 0.69 0.57 - 1.00 mg/dL [facility] ACCOUNT BILL eGFR by CKD-EPI 110 >59 mL/min/1.7 3 [facility] ACCOUNT BILL BUN/Creatinine Ratio 33(H) 9 - 23 [facility] ACCOUNT BILL Sodium 141 134 - 144 mmol/L [facility] ACCOUNT BILL Potassium 4.1 3.5 - 5.2 mmol/L [facility] ACCOUNT BILL Chloride 103 96 - 106 mmol/L [facility] ACCOUNT BILL CO2 25 20 - 29 mmol/L [facility] ACCOUNT BILL Calcium 8.6(L) 8.7 - 10.2 mg/dL [facility] ACCOUNT BILL Protein Total 5.5(L) 6.0 - 8.5 g/dL [facility] ACCOUNT BILL Albumin 3.8(L) 3.9 - 4.9 g/dL [facility] ACCOUNT BILL Globulin Total 1.7 1.5 - 4.5 g/dL [facility] ACCOUNT BILL Bilirubin Total 0.4 0.0 - 1.2 mg/dL [facility] ACCOUNT BILL Alkaline Phosphatase 104 44 - 121 IU/L [facility] ACCOUNT BILL AST 26 0 - 40 IU/L [facility] ACCOUNT BILL ALT 19 0 - 32 IU/L [facility] ACCOUNT BILL Blood BLOOD SPECIMEN / Unknown 06/03/2024 2:17 PM YARD ASSISTANT 06/03/2024 Narrative [facility] ACCOUNT BILL - 06/04/2024 8:09 AM YARD ASSISTANT Performed at: 01 - [facility] [id number] Bone Process Operator: Gagandeep Gamble PhD, Phone: [phone] Blanca Kamara APRN-COAL WASHER LAB - CHEMIS TRY ORDERABLES [facility] ACCOUNT BILL [address] [place] [address] * MAGNESIUM BLOOD (06/03/2024 2:17 PM YARD ASSISTANT) Magnesium 1.9 1.6 - 2.3 mg/dL [facility] ACCOUNT BILL Blood BLOOD SPECIMEN / Unknown 06/03/2024 2:17 PM YARD ASSISTANT 06/03/2024 Narrative [facility] ACCOUNT BILL - 06/04/2024 8:09 AM YARD ASSISTANT Performed at: - [facility] [address] [id number] Bone Process Operator: Gagandeep Gamble PhD, Phone: [phone] Blanca Kamara APRN-COAL WASHER LAB - CHEMIS TRY ORDERABLES Performing Organization Address City/[facility] Co de Phone Number [facility] ACCOUNT BILL [address] [place] [address] * IRON + TIBC PANEL (06/03/2024 2:17 PM YARD ASSISTANT) Pathologist [facility] TIBC 283 250 - 450 ug/dL [facility] ACCOUNT BILL UIBC 222 131 - 425 ug/dL [facility] ACCOUNT BILL Iron 61 27 - 159 ug/dL [facility] ACCOUNT BILL Iron Saturation 22 15 - 55 % [facility] ACCOUNT BILL Blood BLOOD SPECIMEN / Unknown 06/03/2024 2:17 PM YARD ASSISTANT 06/03/2024 Narrative [facility] ACCOUNT BILL - 06/04/2024 8:09 AM YARD ASSISTANT Performed at: - [facility] [address] [id number] Bone Process Operator: Gagandeep Gamble PhD, Phone: [phone] Blanca Kamara APRN-COAL WASHER LAB - CHEMIS TRY ORDERABLES Performing Organization Address City/[facility]/ZIP Co de Phone Number [facility] ACCOUNT BILL [address] [place] [address] * FOLATE (06/03/2024 2:17 PM YARD ASSISTANT) Pathologist [facility] Folate >20.0 >3.0 ng/mL [facility] ACCOUNT BILL Comment: A serum folate concentration of less than 3.1 ng/mL is considered to represent clinical deficiency. Blood BLOOD SPECIMEN / Unknown 06/03/2024 2:17 PM YARD ASSISTANT 06/03/2024 Narrative [facility] ACCOUNT BILL - 06/04/2024 9:35 AM YARD ASSISTANT Performed at: [address] [place] [id number] Bone Process Operator: Gagandeep Gamble PhD, Phone: [phone] Blanca Kamara APRN-COAL WASHER LAB - CHEMIS TRY ORDERABLES Performing Organization Address City/[facility] Co de Phone Number [facility] ACCOUNT BILL [address] [place] [phone] * VITAMIN B12 (06/03/2024 2:17 PM YARD ASSISTANT) Vitamin B12 1,045 232 - 1,245 pg/mL [facility] ACCOUNT BILL Blood BLOOD SPECIMEN / Unknown 06/03/2024 2:17 PM YARD ASSISTANT 06/03/2024 Narrative [facility] ACCOUNT BILL - 06/04/2024 9:35 AM YARD ASSISTANT Performed at: [address] [place] [id number] Bone Process Operator: Gagandeep Gamble PhD, Phone: [phone] Blanca Kamara APRN-COAL WASHER LAB - CHEMIS TRY ORDERABLES Performing Organization Address City/[facility] Co de Phone Number [facility] ACCOUNT BILL [address] [place] [phone] * FERRITIN (06/03/2024 2:17 PM YARD ASSISTANT) Ferritin 50 15 - 150 ng/mL [facility] ACCOUNT BILL Blood BLOOD SPECIMEN / Unknown 06/03/2024 2:17 PM YARD ASSISTANT 06/03/2024 Narrative [facility] ACCOUNT BILL - 06/04/2024 8:09 AM YARD ASSISTANT Performed at: [address] [place] [id number] Bone Process Operator: Gagandeep Gamble PhD, Phone: [phone] Blanca MOSS LAB - CHEMIS TRY ORDERABLES [facility] ACCOUNT BILL [place] [place] [address] * EYE EXAM (03/10/2022) Anatomical Region Laterality Modality Other Narrative 03/10/2022 Ordered by an unspecified provider. Scanned Document SCANNING ONLY * HEPATITIS C ANTIBODY (05/17/2021 10:52 AM YARD ASSISTANT) Hepatitis C Antibody Non-react curtis Non-reac tive 05/17/2021 12:48 PM YARD ASSISTANT [facility] Comment:Hepatitis C Antibody screen indicates no serologic evidence of past or current infection with Hepatitis C Virus. Patients with unexplained liver disease who are immunocompromised or suspected of having acute Hepatitis C infection may benefit from Nucleic Acid Test (MELL) for Hepatitis C Viral RNA to confirm Hepatitis C status. Blood BLOOD SPECIMEN / Unknown Lab Venipuncture / Unknown 05/17/2021 10:52 AM YARD ASSISTANT 05/17/2021 11:49 AM YARD ASSISTANT Ori Zarco MD LAB - CHEMIS TRY ORDERABLES [facility] [address] [place] [address], [facility] [phone] from Last 3 Months or Most Recently Relevant to Health Maintenance Advance Directives * Full Code (Latest Code Status on File) Date Activated Date Inactivated Comments 05/22/2022 3:13 AM 06/01/2022 2:33 PM * Full Code Date Activated Date Inactivated Comments 07/19/2021 8:37 PM 08/02/2021 1:40 PM * Full Code Date Activated Date Inactivated Comments 07/05/2021 3:30 AM 07/19/2021 6:57 PM * Full Code Date Activated Date Inactivated Comments 01/15/2017 8:34 AM 01/18/2017 7:14 PM * Full Code Date Activated Date Inactivated Comments 11/30/2015 10:55 AM 12/02/2015 1:56 PM Care Teams Vegetable Loader Relationship Specialty Start Date End Date Henry Ruiz DO PCP - General Internal Medicine 10/12/15
--- OUTSIDE RECORDS SUMMARY | 2024-08-10 11:55 | XMS_ITS | Encounter Summary ---
Author Organization [facility] Address [address] [place] [address] Phone Care Team Providers Care Cloth Printing Back Tender Name Role Phone Henry Ruiz DO Primary Care Provider [phone] Nicholas Peacock MD Unavailable [phone] Lolita Colon MD Unavailable [phone] Reason for Visit * Reason Comments Post-op Encounter Details Date Type Department Care Team (Late st Contact Info) Description 08/10/2024 9:30 AM CHANGE CONTROL COORDINATOR Office Visit [facility] [address] [place] [address] [address] [place] [address] Gin Conte NP [address] [place] [address] [address] [place] [address] Status post panniculectomy (Primary Dx) Social History Tobacco Use Types Packs/Day Years Used Date Smoking Tobacco: Never Smokeless Tobacco: Never AUDIT-C Answer Date Recorded Frequency of Alcohol Consumption Not on file 05/05/2024 Q2: How many drinks containi ng alcohol do you have on a typical day when you are drinking? Patient does not drink Frequency of Binge Drinking Not on file 12/2023 PHQ-2 Answer Date Recorded PHQ-2 Total Score (If total score is 3 or more points, staff should administer the PHQ-9) 0 05/12/2024 Personal Safety Answer Date Recorded Have you ever been in or are you currently in a harmful physical or emotional relationship or is someone making you feel afraid or unsafe? Denies 05/12/2024 Comments No Sex and Gender Information Value Date Recorded Sex Assigned at Not on file Legal Sex Female 1:45 AM CHANGE CONTROL COORDINATOR Gender Identity Not on file Sexual Orientation Not on file documented as of this encounter Progress Notes * Gin Conte NP - 08/10/2024 9:30 AM CST Plastic & Reconstructive Surgery Progress Note Date of Surgery: 05/12/24 Surgery: Komal Louis Panniculectomy She was last seen by DR. Louie on 07/15/24 and noted to be healing and overall happy with contour. S: No acute issues, she has continued to wear binder at all times except for hygiene. She states that she still has some yellow drainage from able She denies pain, fever, chills or drainage from surgical site accept navel. She has been pleased with appearance of her abdomen. She does express displeasure with appearance of breast and wanting to consider lift with/without augmentation O: There were no vitals taken for this visit. Gen: NAD, A&O x3 All surgical incisions remain well approximated healed, nasal also remains intact Appreciate erythema ecchymosis or drainage. Contour of abdomen is symmetrical, lower abdomen above surgical incision is more dense however I donot appreciate hematoma. Sign is minimal along surgical lines A/P: 43 y.o. female is now 3 months status post [id number] panniculectomy. Overall she was healing well pleased with outcomes. It was signs of infection or other compromise. She now decreased wearing abdominal binder to 12 hours a day. I have advised her to do this for thenext 4 weeks. Afterwards she may remain out of the binder at all times. He was discussed that it can take up to 6 months for scarring and also over all healing she was encouraged to continue to do scar massage. All of her questions were answered and she was instructed to contact the office if she has additional questions. Follow up: PRN Restriction: She may slowly begin to increase activity and lifting as tolerated. Post Op Gin Conte NP 08/09/24 3:19 PM This document was transcribed using voice recognition software without a human rubber block layer. Itmay contain typographical, grammatical, and/or syntax errors. GE CONTROL COORDINATOR documented in this encounter Plan of Treatment Not on file documented as of this encounter Visit Diagnoses Diagnosis Status post panniculectomy- Primary documented in this encounter Care Teams Cloth Printing Back Tender Relationship Specialty Start Date End Date Henry Ruiz DO PCP - General Internal Medicine 12/09/21 Nicholas Peacock MD [address] [facility] [address] [place] [address] Surgeon Neurosurgery 02/19/22 Lolita Colon MD [address] [place] [address] Consulting Physician Internal Medicine 05/16/24 documented as of this encounter
--- OUTSIDE RECORDS SUMMARY | 2024-08-10 11:55 | XMS_ITS | Encounter Summary ---
Author Organization [facility] Address [address] [place] [address] Care Team Providers Care Veterinary Surgeon Name Role Phone Unavailable Primary Care Provider Unavailabl e Encounter Details Date Type Department Care Team (Late st Contact Info) Description 12/04/2018 Abstract [facility] CONVERSION [address] [place] [address] , Generic Conversion, Social History Tobacco Use Types Packs/Day Years Used Date Smoking Tobacco: Never Assessed Comments Unknown Sex and Gender Information Value Date Recorded Sex Assigned at Not on file Legal Sex Female 6:42 PM CDT Gender Identity Not on file Sexual Orientation Not on file documented as of this encounter Plan of Treatment Not on file documented as of this encounter Visit Diagnoses Not on filedocumented in this encounter
--- OUTSIDE RECORDS SUMMARY | 2024-08-10 11:55 | XMS_ITS | Encounter Summary ---
Author Organization [facility] Address [address] [facility] [place] [address] Care Team Providers Care Java Web Architect Name Role Phone Henry Ruiz DO Primary Care Provider [phone] Reason for Visit * Reason Onset Date Comments ABN Follow-Up 02/26/2024 Pt called in c/o a electric like shocking Pain in neck that shoot all the way up to her brain when turning her neck while driving.pain stated 9mnth ago.Pt is requesting a call backLAST ov:[id number] Encounter Details Date Type Department Care Team (Late st Contact Info) Description 02/26/2024 Telephone [facility] - Neurosurgery [address] [place] [address], [facility] [place] [phone] Nicholas Peacock MD [address] [place] [address] [place] [address] ABN Follow-Up (Pt called in c/o a electric like shocking Pain in neck that shoot all the way up to her brain when turning her neck while driving.pain stated 9mnth ago.Pt is requesting a call back/LAST ov:[id number]) Social History Tobacco Use Types Packs/Day Years Used Date Smoking Tobacco: Never Smokeless Tobacco: Never Alcohol Use Standard Drinks/Week Comments No 0 [...] money to buy more. Never true 05/23/20 22 Within the past 12 months, t he food you bought just didn't last and you didn't have money to get more. Never true 05/23/2022 Sex and Gender Information Value Date Recorded Sex Assigned at Not on file Gender Identity Not on file Sexual Orientation Not on file documented as of this encounter Functional Status Functional Status Response Date of [...] person have difficulty concentrating/remembering/making decisions? No 05/24/2022 documented as of this encounter Miscellaneous Notes * Telephone Encounter - Jess Evans - 02/26/2024 9:38 AM CDT Pt called in c/o a electric like shocking Pain in neck that shoot all the way up to her brain when turning her neck while driving.pain stated 9mnth ago.Pt is requesting a call back LAST ov:[email or web address] documented in this encounter Plan of Treatment Upcoming Encounters Date Type Department Care Team (Late st Contact Info) Description 08/30/2024 10:00 AM CLINICAL SERVICES DIRECTOR Appointment [facility] [address] [place] [phone] Nicholas Peacock MD [address] DIV [place] [address] 05/04/2025 11:00 AM CLINICAL SERVICES DIRECTOR Office Visit [facility] [address] [facility] [address] [place] [address] Balnca Kamara APRN-DRYWALL HANGER [address] [facility] [address] [place] [address] documented as of this encounter Goals Goal Patient Goal Type Associated Problems Recent Progress Patient-Stated? Author Medication Management General On track( 022 1:05 PM CDT) Tu Jimenes, RN Note: Expected end date: ongoing Interventions: Take all medications as prescribed Let your doctor know right away about any changes in your medications Make sure to request a refill of your medication at least one week prior to your last dose documented as of this encounter Visit Diagnoses Not on filedocumented in this encounter Care Teams Java Web Architect Relationship Specialty Start Date End Date Henry Ruiz DO PCP - General Internal Medicine 10/12/15 documented as of this encounter
--- OUTSIDE RECORDS SUMMARY | 2024-08-10 11:56 | XMS_ITS | Data Portability ---
Author Organization [place] [facility], Main Office Address [address] [place] [address] Care Team Providers Care Hospice Registered Nurse Name Role Phone WILLIAM MELENDEZ Primary Care Provider WILLIAM MELENDEZ Referring Provider Assessment Encounter Date Assessment Date Assessment LastModified by Organization Details LastModified Time 12/25/2022 12/25/2022 Patient presents ankle pain left. She also has knee pain from the same fall she fell twisted her leg and has laceration of the lateral malleolus. This happened over a week ago unfortunately she continues to be symptomatic. She has pain to palpation and pain to manipulation pain with any activity. She has a hard time walking and walks with an antalgic gait peak mainly because of her ankle but also because of her knee. Of note is the fact she has had 3 previous knee surgeries and has scars over knee did demonstrate this. My impression patient has sprained her ankle and has a laceration the ankle. We will try for prescription Drug manage will try prednisone for pain and inflammation have instructed her and ankle range of motion exercises well. She does have pain in her knee she however with 3 surgeries are reluctant to consider scoping her knee again. Before we do anything if she still hurts when she returns we will get an x-ray of her left knee to see the amount arthritis she has, discussed. alex Not available 12/25/2022 13:39:14 Plan of Treatment Reminders Order Date Submit Date Provider Last Modified By Organization Details Last Modified Time Details Appointments None recorded. Lab None recorded. Referral None recorded. Procedures None recorded. Surgeries None recorded. Imaging None recorded. Medication Orders prednisone 10 mg tablets in a dose pack 2022 023 [email or web address] [employer] [id number], [address], [place], [place], [id number], 3 13:39:32 Patient TargetsNo targets recorded. Patient InstructionsNo instructions recorded. Reason for Referral None Reported. Results Created Date Observation Date Name Description Value Unit Range Abnormal Flag Note LastModifiedBy Organization Detail LastModifiedTime 03/11/20 21 03/11/2021 COVID -19 (SARS COV-2 ) RNA, HONG covid-19 RNA negati ve This test has been autho rized by the FDA under an Emerg ency Use Autho rizat ion (EUA) for use by autho rized labor atori es. Negat curtis resul ts shoul d be treat ed as presu mptiv e and, if incon siste nt with clini hernando signs and sympt oms neces michael for patie nt manag ement , shoul d be teste d with diffe rent autho rized or clear ed molec ular tests . Negat ucrtis resul ts do not precl ude SARS- Co-V- 2 infec tion and shoul d not be used as the sole basis for patie nt manag ement decis ions. Negat curtis resul ts shoul d be consi dered in the chinedu xt of a patie nt's recen t expos ures, histo ry and the prese nce of clini hernando signs and sympt oms consi stent with COVID -19. Pleas e revie w the Fact Sheet s for healt h care provi ders and patie nts at the [facility] te: https ://gl oalpo intof care. abbot t/en/ produ ct-de tails /id-n ow-co vid-1 9.htm l Metho dolog y: Isoth ermal Nucle ic Acid Ampli ficat ion Not Available [facility] (Lab) [address], [place], [address], 03/11/2021 15:05:04 02/08/20 21 XR, foot No observ ation record ed. [id number] [facility] [place] [address], [place], [address], 08/27/2022 12:59:30 02/13/20 21 XR, knee No observ ation record ed. [id number] [facility] [place] [address] [facility], [place], [address], 08/27/2022 12:59:30 03/28/20 XR, foot, 3 or more view No observ ation record ed. [id number] [facility] [address], [place], [address], 08/27/2022 12:59:30 04/18/20 21 XR, foot, 3 or more view No observ ation record ed. [id number] [facility] [address], [place], [address], 08/27/2022 12:59:30 12/18/19 23 emerg ency dept. visit * No observ ation record ed. [email or web address] Not Available 2022 09:23:04 12/18/19 23 12/13/2022 XR, ankle , 3 or more view No observ ation record ed. [email or web address] Not Available 2022 16:49:48 12/26/19 23 12/13/2022 XR, ankle , 3 or more view No observ ation record ed. [email or web address] Not Available 2022 15:25:59 Result Notes None recorded. Problems Name Problem SNOMED Code Status Onset Date Resolution Date Notes Provider Name and Address Organization Details Recorded Time Bilateral arthritis of knees 4376549474015 108 Active 2019 Not Available [facility] 3 12:54:37 Hammer toe 507759418 Active 2020 Not Available [facility] 3 12:54:37 Fracture of bone 427561989 Active Not Available [facility] 3 12:54:37 Postoperat curtis visit 133049988 Active 2020 Not Available [facility] 3 12:54:37 Asthma 589752204 Active 2016 Not Available [facility] 3 12:54:37 Nonunion of fracture 930685023 Active Not Available [facility] 3 12:54:37 Knee pain Active Not Available [facility] 3 12:54:38 Pain in right foot 7305488614028 07 Active 2020 Not Available [facility] 3 12:54:38 Hypertensi ve disorder 96099727 Active 2016 Not Available [facility] 3 12:54:38 Osteoarthr itis 014511849 Active Not Available [facility] 3 12:54:38 Foot pain 72487379 Active 2020 Not Available [facility] 3 12:54:38 Derangemen t of knee 11018963 Active Not Available [facility] 3 12:54:38 Acid reflux 569308461 Active 2016 Not Available [facility] 3 12:54:38 Pain in limb 12098708 Active Not Available [facility] 3 12:54:38 Pain of left ankle joint 0733975162109 9103 Active 2022 Ange Alvarado [facility] 3 13:22:10 Pain of left knee joint 0443762123515 07 Active 2022 Omar Goodson MD [address], [address] , [employer] [facility] 3 13:37:30 Sprain of left ankle 9541067709620 9105 Active 2022 Omar Goodson MD [address] [place] [address], [place], [address] , [email or web address] [facility] [email or web address] [facility] 3 13:37:37 Problem Notes None recorded. Procedures Surgical History Date Name Laterality Status Provider Name and Address Organization Details Recorded Time 2 Brain Surgery completed Ange Jenny Meez [facility] 12/25/2022 13:19:36 [facility] 12/25/2022 13:19:57 Toe completed [facility] 12/25/2022 13:20:15 Imaging Results Imaging Date Name Status [facility]Modified by [facility] Details LastModified Time 02/07/2021 XR, foot completed [id number] [facility] [address], [place], [address], 08/27/2022 12:59:30 02/12/2021 XR, knee completed [id number] [facility] [address], [place], [address], 08/27/2022 12:59:30 03/28/2021 XR, foot, 3 or more view completed [id number] [facility] [address], [place], [address], 08/27/2022 12:59:30 04/18/2021 XR, foot, 3 or more view completed [id number] [facility] [address], [place], [address], 08/27/2022 12:59:30 12/17/2022 emergency dept. visit* completed Information not available 12/18/2022 09:23:04 12/13/2022 XR, ankle, 3 or more view completed [email or web address] Information not available 12/17/2022 16:49:48 12/13/2022 XR, ankle, 3 or more view completed Information not available 12/25/2022 15:25:59 Procedure Notes None recorded. Medical Equipment None Reported. Allergies Allergen ID Allergen Name Allergen Category Reaction Reaction Severity Criticality Documentation Date Start Date Code Code System Note Provider Name and Address Organization Details Recorded Time 58107 Non-stero idal anti-infl ammatory agent (product) medicatio n Not available Not available Not available 08/27/2022 76097 005 SNOMED Not Available [facility] 3 12:59:24 77585 morphine medicatio n Not available Not available Not available 12/25/2022 7052 RxNorm mouth ulcer s Ange Alvarado [facility], [place] [facility] 3 13:09:00 Medications Name Sig Start Date Stop Date Status Note LastModified by Organization Details LastModified Time cyclobenz aprine 10 mg tablet TAKE 1 TABLET BY MOUTH TWICE DAILY NEEDED active Not Available Not Available No t Available amoxicill in 500 mg capsule TAKE 1 CAPSULE BY MOUTH TWICE DAILY 12/25 completed Not Available Not Available Not Available atorvasta tin 40 mg tablet TAKE 1 TABLET BY MOUTH DAILY active Not Available Not Available No t Available methocarb perla 500 mg tablet active Not Available Not Available No t Available metformin 500 mg tablet TK 1 T PO BID 12/25 completed Not Available Not Available Not Available hydrocodo ne 7.5 mg-ibupro fen 200 mg tablet 03/05 completed Not Available Not Available Not Available neomycin- polymyxin -hydrocor t 3.5 mg/mL-10, 000 unit/mL-1 % ear solution 03/05 completed Not Available Not Available Not Available prednison e 10 mg tablet active Not Available Not Available Not Available venlafaxi ne ER 75 mg capsule,e xtended release 24 hr TAKE 1 CAPSULE BY MOUTH DAILY 12/25 completed Not Available Not Available Not Available clindamyc in HCl 300 mg capsule 03/05 completed Not Available Not Available Not Available azithromy jessica 250 mg tablet TAKE 2 TABLETS BY MOUTH FOR 1 DAY THEN TAKE 1 TABLET BY MOUTH DAILY FOR 4 DAYS DIRECTED 12/25 completed Not Available Not Available Not Available ibuprofen 800 mg tablet 03/05 completed Not Available Not Available Not Available tizanidin e 4 mg tablet TK 1 T PO Q 8 TO 12 H PRN 03/05 completed Not Available Not Available Not Available fluconazo le 150 mg tablet TAKE 1 TABLET BY MOUTH DAILY 12/25 completed Not Available Not Available Not Available acetamino phen 120 mg-codein e 12 mg/5 mL oral solution 03/05 completed Not Available Not Available Not Available valacyclo vir 1 gram tablet 10/14 completed Not Available Not Available Not Available hydrocodo ne 5 mg-acetam inophen 325 mg tablet 10/14 completed Not Available Not Available Not Available sucralfat e 100 mg/mL oral suspensio n SHAKE LIQUID AND TAKE 10 ML BY MOUTH FOUR TIMES DAILY 12/25 completed Not Available Not Available Not Available sucralfat e 1 gram tablet 03/12 completed Not Available Not Available Not Available ondansetr on HCl 4 mg tablet TAKE 1 TABLET BY MOUTH EVERY 8 HOURS 12/25 completed Not Available Not Available Not Available prednison e 20 mg tablet TAKE 3 TABLETS BY MOUTH ONCE DAILY FOR 5 DAYS 02/12 completed Not Available Not Available Not Available oxycodone 5 mg/5 mL oral solution TAKE 10 ML BY MOUTH EVERY 6 HOURS NEEDED FOR ACUTE PAIN 12/25 completed Not Available Not Available Not Available metronida zole 500 mg tablet 12/25 completed Not Available Not Available Not Available amlodipin e 5 mg tablet 03/05 completed Not Available Not Available Not Available prochlorp erazine maleate 10 mg tablet TK 1 T PO BID PRN 10/14 completed Not Available Not Available Not Available ciproflox acin 500 mg tablet 03/05 completed Not Available Not Available Not Available hydrocodo ne 10 mg-acetam inophen 325 mg tablet TK 1 T PO Q 8 TO 12 H 03/05 completed Not Available Not Available Not Available tramadol 50 mg tablet 03/05 completed Not Available Not Available Not Available butalbita l-acetami nophen-ca ffeine 50 mg-325 mg-40 mg tablet TAKE 1 TABLET BY MOUTH THREE TIMES DAILY active Not Available Not Available No t Available prednison e 10 mg tablets in a dose pack Take 1 tab by mouth, 3 times a day for 3 daysTake 1 tab by mouth 2 times a day for 2 daysTake 1 tab by mouth once a day for 1 day 2022 active Not Available Not Available Not Avai lable oxycodone -acetamin ophen 5 mg-325 mg tablet 12/03 completed Not Available Not Available Not Available famotidin e 20 mg tablet 12/25 completed Not Available Not Available Not Available DOK 100 mg capsule TK ONE C PO BID active Not Available Not Available No t Available oxycodone -acetamin ophen 10 mg-325 mg tablet TAKE 1 TABLET BY MOUTH TWICE DAILY NEEDED active Not Available Not Available No t Available betametha sone valerate 0.1 % topical cream 10/14 completed Not Available Not Available Not Available Kenalog 10 mg/mL suspensio n for injection In office injectio n administ ered by the provider 12/25 completed ND: [id number] 4-20 Not Available Not Available Not Available baclofen 10 mg tablet 08/17 completed Not Available Not Available Not Available hydrocodo ne 7.5 mg-acetam inophen 325 mg tablet TAKE 1 TABLET BY MOUTH EVERY 8 TO 12 HOURS NEEDED FOR 30 DAYS 12/25 completed Not Available Not Available Not Available cephalexi n 500 mg capsule TAKE 1 CAPSULE BY MOUTH EVERY 6 HOURS FOR 10 DAYS active Not Available Not Available No t Available pantopraz ole 40 mg tablet,de layed release TAKE 1 TABLET BY MOUTH EVERY DAY AT BEDTIME active Not Available Not Available No t Available nystatin 100,000 unit/gram topical cream APPLY TOPICALL Y TO THE AFFECTED AREA TWICE DAILY active Not Available Not Available No t Available lisinopri l 10 mg tablet TK 1 AND 1/2 T PO QD FOR BLOOD PRESURE 10/14 completed Not Available Not Available Not Available promethaz ine 25 mg tablet 03/05 completed Not Available Not Available Not Available nitroglyc aditya 0.4 mg sublingua l tablet PLACE 1 TABLET UNDER THE TONGUE EVERY 5 MINUTES FOR 3 TOTAL DOSES NEEDED FOR CHEST PAIN. IF NO RELIEF AFTER THIRD DOSE GO TO ER. 12/25 completed Not Available Not Available Not Available gabapenti n 300 mg capsule 03/05 completed Not Available Not Available Not Available acetamino phen 300 mg-codein e 60 mg tablet TAKE 1 TABLET BY MOUTH EVERY 8 TO 12 HOURS NEEDED active Not Available Not Available No t Available lisinopri l 5 mg tablet TAKE 1 TABLET BY MOUTH DAILY active Not Available Not Available No t Available diclofena c sodium 50 mg tablet,de layed release TK 1 T PO BID PRN TAKE WITH COMPAZIN E 03/05 completed Not Available Not Available Not Available gabapenti n 100 mg capsule 03/05 completed Not Available Not Available Not Available ibuprofen 600 mg tablet 03/05 completed Not Available Not Available Not Available methylpre dnisolone 4 mg tablets in a dose pack TAKE DIRECTED 12/25 completed Not Available Not Available Not Available albuterol sulfate HFA 90 mcg/actua tion aerosol inhaler INHALE 1 PUFF BY MOUTH EVERY 4 HOURS NEEDED FOR SHORTNES S OF BREATH OR WHEEZING active Not Available Not Available No t Available hydrocodo ne 10 mg-acetam inophen 650 mg tablet 03/05 completed Not Available Not Available Not Available fluocinon flor 0.05 % topical cream 12/25 completed Not Available Not Available Not Available hydroxyzi ne HCl 10 mg tablet TAKE 1 TABLET BY MOUTH TWICE DAILY NEEDED FOR ITCHING active Not Available Not Available No t Available ondansetr on 4 mg disintegr ating tablet DISSOLVE 1 TABLET ON THE TONGUE EVERY 8 HOURS 12/25 completed Not Available Not Available Not Available cefdinir 300 mg capsule 12/25 completed Not Available Not Available Not Available metformin ER 500 mg tablet,ex tended release 24 hr TK 1 T PO BID 12/25 completed Not Available Not Available Not Available dicyclomi ne 10 mg capsule 03/10 completed Not Available Not Available Not Available naproxen 500 mg tablet TK 1 T PO BID WITH FOOD active Not Available Not Available No t Available metoclopr amide 10 mg tablet 03/05 completed Not Available Not Available Not Available oxycodone 5 mg tablet 12/25 completed Not Available Not Available Not Available neomycin- polymyxin -hydrocor t 3.5 mg-10,000 unit/mL-1 % ear drops,kristen p 03/05 completed Not Available Not Available Not Available enoxapari n 100 mg/mL subcutane ous syringe 10/14 completed Not Available Not Available Not Available hydrocort isone-min eral oil-white petrolatu m 1 % topical ointment 03/10 completed Not Available Not Available Not Available bupropion HCl XL 150 mg 24 hr tablet, extended release 10/14 completed Not Available Not Available Not Available metoprolo l tartrate 25 mg tablet TK 1 T PO BID FOR HYPERTEN CA. 10/14 completed Not Available Not Available Not Available hydrocodo ne 7.5 mg-acetam inophen 325 mg/15 mL oral solution 12/25 completed Not Available Not Available Not Available duloxetin e 20 mg capsule,d elayed release TAKE 1 CAPSULE BY MOUTH DAILY active Not Available Not Available No t Available duloxetin e 60 mg capsule,d elayed release TAKE 1 CAPSULE BY MOUTH DAILY active Not Available Not Available No t Available [employer] Allergy 25 mg tablet TK ONE C PO Q 12 H 12/25 completed Not Available Not Available Not Available Euflexxa 10 mg/mL (mw 2.4-3.6 million) intra-art icular syringe Injectio ns given in the office by the doctor 12/25 completed NDC: [id number] 001 Not Available Not Available Not Available cyclobenz aprine active Not Available Not Available Not Available fiber 2018 active Not Available Not Available Not Avai lable multivita min 2018 active Not Available Not Available Not Avai lable Calcium 500 2018 active Not Available Not Available Not Avai lable Cymbalta 12/25 completed Not Available Not Available Not Available lidocaine (PF) 10 mg/mL (1 %) injection solution In office injectio n administ ered by the provider 12/25 completed NDC: 0409-427 12-13 Not Available Not Available Not Available hydrocodo ne 7.5 mg-acetam inophen 500 mg/15 mL oral solution 03/05 completed Not Available Not Available Not Available dexlansop razole 30 mg capsule,b iphase delayed release TAKE 1 CAPSULE BY MOUTH EVERY DAY active Not Available Not Available No t Available Probiotic 03/12 completed Not Available Not Available Not Available Linzess 145 mcg capsule TAKE 1 CAPSULE BY MOUTH DAILY 30 MINUTES BEFORE FIRST MEAL OF THE DAY ON AN EMPTY STOMACH active Not Available Not Available No t Available Aimovig Autoinjec tor 70 mg/mL subcutane ous auto-inje ctor ADMINIST ER 1 ML UNDER THE SKIN EVERY MONTH active Not Available Not Available No t Available Vitals Date Recorded Body mass index (BMI) Body mass index (BMI) Body mass index (BMI) Body mass index (BMI) Body height Body height Body height Body height Heart rate Heart rate Body weight Body weight Body weight Body weight Systolic blood pressure Diastolic blood pressure Systolic blood pressure Diastolic blood pressure Provider Name and Address Organization Details Last Updated DateTime 40.7 kg/m2 40.7 kg/m2 40.7 kg/m2 40.7 kg/m2 170.18 cm 170.18 cm 170.18 cm 170.18 cm 88 /min 88 /min 450009. 02 g 175753. 02 g 689375. 02 g 224122. 02 g 140 mm[Hg] 110 mm[Hg] 140 mm[Hg] 110 mm[Hg] Not Available [facility] 12:53:37 Date Recorded Body height Body mass index (BMI) Body weight Provider Name and Address Organization Details Last Updated DateTime 12/25/2022 170.18 cm 35.2 kg/m2 747582.28 g Ange Alvarado [facility] [employer] 12/25/2022 13:07:53 Social History Question Answer Notes LastModified by Organizat ion Details LastModified Time Tobacco Smoking Status Never Smoker Not Available [facility] 08/27/2022 12:52:22 What Is Your Level Of Alcohol Consumption? None [id number] Information not available 08/27/2022 Have You Recently Traveled Abroad? No [id number] Information not available 08/27/2022 Sex: Unknown Functional Status None recorded. Mental Status None recorded. Family History Relationship Description Onset Age of this Age Resolved Age Notes LastModified by Organization Details LastModified Time Mother Kidney disease [id number] Not available 08/27/2022 12:52:31 Medical History Condition Response ARTHRITIS Y HEADACHES/MIGRAINES Y USE OF BLOOD THINNERS Y BLOOD CLOTS Y ANEMIA/BLOOD DISORDER Y HAVE YOU BEEN HOSPITALIZED OR SEEN IN [facility] ER IN THE PAST YEAR ? Y HYPERTENSION Y Gynecological HistoryNo gynecological history recorded. Obstetrics History GPAL:G 0 P 0 0 0 0 Past Encounters Encounter ID Performer Location Encounter Start Date Encounter Closed Date Diagnosis/Indication Diagnosis SNOMED-CT Code Diagnosis ICD10 Code Diagnosis Note [id number] [facility] Sky Lozano [address] [place] [address] 02/07/2021 00:00:00 02/08/2021 09:16:25 [id number] [facility] [place] [address] 02/12/2021 00:00:00 02/12/2021 12:05:36 [id number] [facility] [place] [address] [place] [address] 03/21/2021 00:00:00 03/24/2021 14:39:24 [id number] [facility] [place] [address] [place] [address] 03/28/2021 00:00:00 03/28/2021 15:42:50 [id number] [facility] [place] [address] [place] [address] 04/18/2021 00:00:00 04/22/2021 10:37:35 [id number] Omar Goodson MD [facility] [place] [address] [facility] [address] [place] [address] 12/25/2022 12:36:13 12/25/2022 13:37:49 Pain of left ankle joint 8632481896 0536864 M25.572 Sprain of left ankle 286 7303319 8519216 S93.402A Pain of le ft knee joint 2878179601 05384 M25.562 Health Concerns Section Related Observation LastModified by Organization Detai ls LastModified Time None Recorded Concern Status LastModified by Organization Details LastModified Time None Recorded Advance Directives Directive None Recorded Payers Encounter Date Sequence Insurance Name Policy Number Policy Ramirez Covered Member ID Ramirez Member ID Guarantor Name 12/25/2022 1 [facility] (MEDICARE REPLACEMENT/AD VANTAGE - PPO) [id number] Dory Barnes [id number] Dory Barnes 12/25/2022 2 [place]CON[place] WHEN MEDICARE OR MEDICARE REPLACEMENT PRIMARY) Dory Barnes [id number] Dory Barnes Notes Date Note Type Note Provider Name and Address Organization Details Recorded Time 12/25/2022 text/html Patient presents ankle pain left. She twisted and fell injuring her ankle she has a laceration underneath the malleolus on the lateral side and pain and swelling in the ankle per se she also hurt her knee at the same time. X-rays taken at the time of her ankle are unremarkable. Omar Goodson MD [address] [facility], [place] [address], [place], [address], [facility] [employer] 12/25/2022 13:39:29 OBGyn Episode No OBEpisode recorded.
--- OUTSIDE RECORDS SUMMARY | 2024-08-10 11:56 | XMS_ITS | Clinical Summary ---
Author Organization [facility] Address [address] [place] [address] Care Team Providers Care Strike Operations Officer Name Role Phone Unavailable Primary Care Provider Unavailabl e Allergies No known active allergies Medications Erenumab-aooe (AIMOVIG) 70 MG/ML injection Inject under the skin every 30 (thirty) days. Active linaclotide (LINZESS) 145 MCG capsule Take 145 mcg by mouth daily. Active nitroglycerin (NITROSTAT) 0.[address] 1 tablet (0.4 mg total) under the tongue every 5 (five) minutes as needed (Angina). 10 tablet 2 Active ondansetron ODT (ZOFRAN-ODT) 4 MG disintegrating tablet Take 1 tablet (4 mg total) by mouth every 6 (six) hours as needed for nausea or vomiting. 20 tablet 2 Active senna-docusate (SENOKOT-S) 8.6-50 MG Take 1 tablet by mouth nightly. 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 Hemorrhage into subarachnoid space of neuraxis 0 07/05/2021 Nonalcoholic steatohepatitis (BATES) 07/01/2021 Morbid obesity 09/26/2015 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 Resolved Problems Problem Noted Date Diagnosed Date Resolved Date Subarachnoid hemorrhage due to ruptured aneurysm 07/19/2021 07/20/2021 Social History Tobacco Use Types Packs/Day Years Used Date Smoking Tobacco: Never Smokeless Tobacco: Never Comments Unknown Sex and Gender Information Value Date Recorded Sex Assigned at Not on file Legal Sex Female 3:30 PM EST Gender Identity Not on file Sexual Orientation Not on file Last Filed Vital Signs Vital Sign Reading Time Taken Comments Blood Pressure 135/88 08/02/2021 8:10 AM [employer]OSP[employer] 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 Pulse 105 08/02/2021 8:10 AM [employer]OS[employer] 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 just walked back from bathroom Temperature 36.8 C (98.3 F) 08/02/2021 8:10 AM [employer]OS[employer] 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 Respiratory Rate 17 08/02/2021 8:10 AM A[employer]OSP[employer] 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 Oxygen Saturation 96% 08/02/2021 8:1 0 AM [employer] 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 Inhaled Oxygen Concentration - - Weight 112.9 kg (249 lb) 08/02/2021 10: 00 AM [employer]OSP[employer] 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 Height 170.2 cm (5' 7 ) 07/19/2021 7:00 PM [employer]OS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 Body Mass Index 39 07/19/2021 7:00 PM A[employer]OS[employer] 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 Plan of Treatment Not on file Advance Directives * Full Resuscitation (Latest Code Status on File) Date Activated Date Inactivated Comments 07/19/2021 8:25 PM 08/02/2021 9:42 PM
--- OUTSIDE RECORDS SUMMARY | 2024-08-10 11:56 | XMS_ITS | CONTINUITY OF CARE DOCUMENT ---
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 James Weldon RN OBESITY- s/p lap band revision active Denae Ny MD PE, HX OF active Abelino Ny MD POLYCYSTIC OVARIAN DISEASE REMOVED MAY 2010 active Abelino Ny MD PREOPERATIVE CARDIOVASCULAR EXAMINATION active - Abelino Ny MD CAD-02/03 CATH NO CAD completed - Abelino carnes MD CHEST PAIN-04/2014 NUC NEG EF60% - 02/03 NUC ISCHEMIA completed - Evelio Kyte CHOLECYSTECTOMY, HX OF MAY 2010 completed - Evelio Carcamote DVT-09/07 SHIV DOP NEG active - Abelino carnes MD Family History of Hypertension: completed - César Ny MD Bilateral leg Edema active Abelino Ruiz GERD active Evelio Kyte ENCOUNTERS Date Type Provider Location Encounter Diag nosis - In-person encounter Office Visit Abelino Ny MD [facility] CHEST PAIN-04/2014 NUC NEG EF60% - 02/03 NUC ISCHEMIACHOLECYSTECTOM Y, HX OF MAY 2010GERD - In-person encounter Office Visit Abelino Ny MD [facility] Bilateral leg Edema - In-person encounter Office Visit Cameron Ramírez MD [facility] - In-person encounter Office Visit Abelino Ny MD [facility] OBESITY- s/p lap band revision - In-person encounter Office Visit Abelino Ny MD [facility] - In-person encounter Office Visit Abelino Ny MD [facility] OBESITY- s/p lap band revision - In-person encounter Office Visit Abelino Ny MD [facility] Family History of Hypertension: - In-person encounter Office Visit Abelino Ny MD [facility] - In-person encounter Office Visit Abelino Ny MD [facility] - In-person encounter Office Visit Abelino Ny MD [facility] PE, HX OFPREOPERATIVE CARDIOVASCULAR EXAMINATIONCAD-02/03 CATH NO CADDVT-09/07 SHIV DOP NEG - In-person encounter Office Visit Abelino Ny MD [facility] OBESITY- s/p lap band revision - In-person encounter Office Visit Abelino Ny MD [facility] - In-person encounter Office Visit Abelino Ny MD [facility] - In-person encounter Office Visit Abelino Ny MD [facility] POLYCYSTIC OVARIAN DISEASE REMOVED MAY 2010 - In-person encounter Office Visit Abelino Ny MD [facility] - In-person encounter Office Visit Abelino Ny MD [facility] - In-person encounter Office Visit Abelino Ny MD [facility] HTN-02/06 ECHO EF 60-06/04 ECHO EF 60CHEST PAIN-04/2014 NUC NEG EF60% - 02/03 NUC ISCHEMIA - In-person encounter Office Visit Gary Angeles MD [facility] VITAL SIGNS Date Observation Value Provider Body Mass Index (Ratio) 35.77 kg/m2 Manjeet Carcamote blood pressure, diastolic 70 mm[Hg] Kr isty Leonela blood pressure, systolic 110 mm[Hg] Kri sty Leonela oxygen saturation, oximetry 98 % Kena Fleetwood respiratory rate E&M 17 /min Kena Fleetwood pulse rate 82 /min Kena Leonela blood pressure, cuff size regular Kr alexandra Fleetwood weight E&M 215 [lb_av] Kena Fleetwood height E&M 65 [in_i] Kena Fleetwood Body Mass Index (Ratio) 33.11 kg/m2 Scottie Ny MD oxygen saturation, oximetry 99 % [facility] 83 /min [facility] blood pressure, diastolic 70 mm[Hg] Ch astity Kelli blood pressure, systolic 126 mm[Hg] Cherelle stity Kelli respiratory rate E&M 20 /min Chastit y Kelli weight E&M 199 [lb_av] Chastity Kelli height E&M 65 [in_i] Chastity Kelli Body Mass Index (Ratio) 32.78 kg/m2 Cody Ramírez MD blood pressure, diastolic 80 mm[Hg] Br ittany Block blood pressure, systolic 116 mm[Hg] Neena ttany Block oxygen saturation, oximetry 98 % Jocelyn Block respiratory rate E&M 16 /min Brittan y pulse rate 93 /min Jocelyn weight E&M 197 [lb_av] Jocelyn blood pressure, resting No Yamilet vinnie height E&M 65 [in_i] Jocelyn Body Mass Index (Ratio) 31.45 kg/m2 Scottie Ny MD blood pressure, diastolic 80 mm[Hg] [facility], [facility] 110 mm[Hg] Kil sergio [place] oxygen saturation, oximetry 98 % [facility] respiratory rate E&M 16 /min [facility] 81 /min [facility] weight E&M 189 [lb_av] [facility] height E&M 65 [in_i] [facility] Body Mass Index (Ratio) 44.59 kg/m2 Scottie Ny MD blood pressure, cuff size large Ke rri Conchis blood pressure, diastolic 84 mm[Hg] Ke rri Conchis blood pressure, systolic 132 mm[Hg] Maura Balderrama oxygen saturation, oximetry 99 % Bebe Balderrama respiratory rate E&M 18 /min Bebe patel pulse rate 78 /min Bebe Arun [facility] weight E&M 268 [lb_av] Bebe Arun [facility] height E&M 65 [in_i] Bebe Arun lder blood pressure, diastolic 96 mm[Hg] Ke rri Conchis blood pressure, systolic 130 mm[Hg] Maura Balderrama pulse rate 72 /min Bebe Dias lder oxygen saturation, oximetry 95 % Bebe Balderrama respiratory rate E&M 16 /min Bebe Aaron amanda Body Mass Index (Ratio) 50.92 kg/m2 Cheek i Conchis weight E&M 306 [lb_av] Bebe Wrighte lder Body Mass Index (Ratio) 48.25 kg/m2 Xochilt Lindseyoney blood pressure, greer tolic, second observation 90 mm[Hg] Lorie Lindseyoney blood pressure, syst olic, second observation 132 mm[Hg] Lorie Koch blood pressure, diastolic 90 mm[Hg] Na bashir Koch blood pressure, systolic 132 mm[Hg] Jacquelyn modesto Lindseyoney pulse rate 94 /min Lorie Koch oxygen saturation, oximetry 99 % Lorie Koch respiratory rate E&M 22 /min Lorie Lindseyoney weight E&M 290 [lb_av] Lorie Lindseyoney Body Mass Index (Ratio) 49.09 kg/m2 Cheek tamar Conchis blood pressure, diastolic 80 mm[Hg] Ke rrtamar Conchis blood pressure, systolic 126 mm[Hg] Maura grant Conchis pulse rate 82 /min Bebe Adrianawilli marker oxygen saturation, oximetry 99 % Bebe Conchis respiratory rate E&M 16 /min Bebe Aaron amanda weight E&M 295 [lb_av] Bebe Cherylsungnoee lder blood pressure, diastolic 82 mm[Hg] Me sandy Canseco blood pressure, systolic 125 mm[Hg] Loraine anil Canseco Body Mass Index (Ratio) 48.42 kg/m2 Gail aga Canseco pulse rate 67 /min Latoya Canseco oxygen saturation, oximetry 98 % Latoya Canseco respiratory rate E&M 16 /min Latoya Canseco weight E&M 291 [lb_av] Latoya Canseco Body Mass Index (Ratio) 43.80 kg/m2 Bertram Taylor blood pressure, diastolic, left arm 86 mm [Hg] Krystian Taylor blood pressure, systolic, left arm 133 mm [Hg] Shanhawa Taylor blood pressure, diastolic, right arm 77 m m[Hg] Shanhawa Taylor blood pressure, systolic, right arm 126 m m[Hg] Shanhawa Taylor blood pressure, diastolic 86 mm[Hg] Turner blood pressure, systolic 133 mm[Hg] Shan hawa Taylor pulse rate 95 /min [facility] oxygen saturation, oximetry 98 % [facility] respiratory rate E&M 16 /min [facility] weight E&M 262.25 [lb_av] Krystian shaikh blood pressure, diastolic, left arm 98 mm [Hg] Abelino Ny MD blood pressure, systolic, left arm 138 mm [Hg] Abelino Ny MD blood pressure, diastolic, right arm 90 m m[Hg] Abelino Ny MD blood pressure, systolic, right arm 140 m m[Hg] Abelino Ny MD Body Mass Index (Ratio) 46.93 kg/m2 Cheek i Conchis blood pressure, diastolic 98 mm[Hg] Antonio alanisi Conchis blood pressure, systolic 138 mm[Hg] Maura Balderrama pulse rate 79 /min Bebe stallings oxygen saturation, oximetry 98 % Bebe Balderrama respiratory rate E&M 16 /min Bebe patel weight E&M 281 [lb_av] Bebe Dias [facility] height E&M 65 [in_i] Bebe [facility] blood pressure, diastolic, left arm 110 m m[Hg] Shanhawa Taylor blood pressure, systolic, left arm 159 mm [Hg] Shanhawa Taylor blood pressure, diastolic, right arm 137 mm[Hg] Shanhawa Taylor blood pressure, systolic, right arm 170 m m[Hg] Shanhawa Taylor blood pressure, diastolic 110 mm[Hg] Fleming Taylor blood pressure, systolic 159 mm[Hg] Shan de la cruz Taylor pulse rate 99 /min [facility] oxygen saturation, oximetry 96 % [facility] respiratory rate E&M 18 /min [facility] weight E&M 286 [lb_av] Shanhawa Taylor blood pressure, diastolic 95 mm[Hg] Fleming Taylor blood pressure, systolic 140 mm[Hg] Shan de la cruz Taylor pulse rate 85 /min [facility] oxygen saturation, oximetry 99 % [facility] respiratory rate E&M 16 /min [facility] weight E&M 272 [lb_av] Shanhawa Taylor blood pressure, diastolic, left arm 80 mm [Hg] Shanyehawa Taylor blood pressure, systolic, left arm 120 mm [Hg] [facility] blood pressure, diastolic, right arm 88 m m[Hg] Shanhawa Taylor blood pressure, systolic, right arm 123 m m[Hg] [facility] oxygen saturation, oximetry 99 % [facility] blood pressure, diastolic 98 mm[Hg] Pimenteleadestiney Taylor blood pressure, systolic 123 mm[Hg] Shan de la cruz Taylor pulse rate 88 /min Krystian Taylor respiratory rate E&M 20 /min Krystian Beyran weight E&M 270 [lb_av] Krystian Taylor blood pressure, diastolic, left arm 81 mm [Hg] Jeannie York blood pressure, systolic, left arm 109 mm [Hg] Jeannie York blood pressure, diastolic, right arm 67 m m[Hg] Jeannie York blood pressure, systolic, right arm 100 m m[Hg] Jeannie York oxygen saturation, oximetry 98 % Jeannie blood pressure, diastolic 81 mm[Hg] Joe polanco York blood pressure, systolic 109 mm[Hg] Pat sy York pulse rate 75 /min Jeannie York respiratory rate E&M 16 /min Jeannie Y kok weight E&M 260 [lb_av] Jeannie York blood pressure, diastolic 81 mm[Hg] Reddy Weldon RN blood pressure, systolic 122 mm[Hg] James Weldon RN pulse rate 60 /min James Weldon RN oxygen saturation, oximetry 100 % James Weldon RN respiratory rate E&M 16 /min James amador RN weight E&M 247 [lb_av] James Weldon RN blood pressure, diastolic 72 mm[Hg] Reddy Weldon RN blood pressure, systolic 112 mm[Hg] James Weldon RN pulse rate 57 /min James Weldon RN oxygen saturation, oximetry 97 % James Weldon RN respiratory rate E&M 18 /min James amador RN weight E&M 250 [lb_av] James Weldon RN blood pressure, diastolic 83 mm[Hg] Te juanita Kam blood pressure, systolic 143 mm[Hg] Ter tamar Kam pulse rate 58 /min Lorna Kam oxygen saturation, oximetry 98 % Lorna Kam respiratory rate E&M 18 /min Lorna Darnell jose albertomagnolia weight E&M 320 [lb_av] Lorna Kam ALLERGIES No Known Drug Allergies RESULTS Date Observation Value Provider Reference Range Interpretation Location hemoglobin A1C, blood, as % of total hemoglobin 5.3 % [facility] 4.0-5.6 thyroid stimulating hormone, serum 2.08 ?IU/ ML [facility] 0.27-4.20 very low density lipoproteins 29.0 mg/dL [facility] 5.0-40.0 LDL/HDL (low-density lipoprotein/high-den sity lipoprotein) ratio 1 mg/dL [facility] 0-5 lipoprotein, beta, serum, point, quantitative, calculated 51 mg/dL [facility] 0-100 HDL cholesterol, serum 36 mg/dL [facility] 45-65 Low cholesterol, serum 116 mg/dL [facility] 0-200 triglyceride, serum, fasting 145 mg/dL [facility] 0-150 Estimated Glomerular Filtration Rate (calc) 97 (?) [facility] >59 chloride, serum 101 mmol/L [facility] 98-107 potassium, serum 4.3 mmol/L [facility] 3.5-5.1 sodium, serum 141 mmol/L [facility] 624-445 8536/09/ 28 creatinine, serum 0.7 mg/dL [facility] 0.5-0.9 carbon dioxide, venous blood 28 mmol/L [facility] 22-29 albumin, serum 4.7 g/dL [facility] 3.5-5.2 calcium, serum 9.7 mg/dL [facility] 8.6-10.2 aspartate aminotransferase (SGOT), serum 25 1/L [facility] 0-32 alkaline phosphatase, serum 85 1/L [facility] 40-130 alanine aminotransferase (SGPT), serum 27 1/L [facility] 0-33 protein, total, serum 7.8 g/dL [facility] 6.6-8.7 bilirubin, serum, total 0.3 mg/dL [facility] 0.0-1.2 urea nitrogen, blood 14 mg/dL [facility] 6-20 blood glucose, random 94 mg/dL [facility] 74-99 platelet count 255 10*3/mm3 [facility] hematocrit, blood 42.1 % [facility] international normalized ratio (INR) 1.0 [facility] D-dimer quantitative mcg/mL 372 ug/mL [facility] alanine aminotransferase (SGPT), serum 52 1/L [facility] aspartate aminotransferase (SGOT), serum 25 1/L [facility] creatinine, serum 1.07 mg/dL [facility] potassium, serum 3.2 mmol/L [facility] sodium, serum 139 mmol/L [facility] HISTORY OF MEDICATION USE Medication Status Instructions Dates Provider Indications Com ments GAVISCON EXTRA STRENGTH 254-237.5 MG/5ML ORAL SUSPENSION active 5mL three times. Don't eat for 20-30 minutes after taking 07/11 Abelino Ny MD NITROSTAT 0.4 MG SUBLINGUAL TABLET SUBLINGUAL active apply one tab under tongue every 5 minutes for 3 total doses as needed for chest pain. If no relief after 3rd dose, go to ER 07/11 Abelino Ny MD VENLAFAXINE HCL ER 75 MG ORAL CAPSULE EXTENDED RELEASE 24 HOUR active take one tablet by mouth once daily 10/18 Kena Gipson #90, 90 days supply, Filled 10/18/2018 HYDROCODONE-ACETAMI NOPHEN 7.5-325 MG ORAL TABLET active take one tablet by mouth as needed for pain 10/22 Kena Gipson #70, 24 days supply, Filled 10/22/2018 LINZESS 145 MCG ORAL CAPSULE active TK 1 C PO QAM 07/14 Kena Gipson #90, 90 days supply, Prescribed by JASON BADILLO, Filled 08/11/2018 VENTOLIN HFA 108 (90 BASE) MCG/ACT INHALATION AEROSOL SOLUTION active 2 puffs every 4-6 hours as needed 07/27 Debora Cristopher WOMACK CYMBALTA 60 MG ORAL CAPSULE DELAYED RELEASE PARTICLES active 1 tab daily 07/26 Esteban Gonzalez MULTIVITAMIN ADULT ORAL TABLET active take one pill a day 03/26 Bebe Balderrama CALCIUM CITRATE + TABLET active take one pill three times a day 03/26 Bebe Balderrama LISINOPRIL 10 MG ORAL TABLET completed take one pill a day 01/22 - 07/26 Esteban Gonzalez IBUPROFEN TABLET completed 800mg take one pill three times a day 08/09 - 12/26 Lorie Koch BACLOFEN 10 MG ORAL TABLET completed take one pill three times a day for 10 days 08/09 - 01/28 Bebe Balderrama PROAIR HFA 108 (90 BASE) MCG/ACT INHALATION AEROSOL SOLUTION completed 2 puffs every 4-6 hours NEEDED 07/17 - 07/27 [facility] VU METFORMIN HCL 500 MG ORAL TABLET completed 1 tab twice daily 07/18 - Bebe Balderrama METOPROLOL TARTRATE TABS completed 1 tab twice 07/18 - 07/26 Esteban Gonzalez BIOTIN CAPSULE completed take one a day - 07/18 Krystian Taylor AMOXICILLIN 500 MG ORAL CAPSULE completed one tab three times daily for 7 days. 03/12 - Bebe Balderrama NITROSTAT 0.4 MG SUBLINGUAL TABLET SUBLINGUAL active One tab. under tongue as needed. May repeat twice in 10 minutes. 02/19 Abelino Ny MD GNP VITAMIN B-6 TABLET completed once daily - 02/19 Krystian Taylor B-12 TABS completed once daily - 02/19 Krystian Taylor EQL FOLIC ACID TABLET completed once daily - 02/19 Krystian Tyalor CYMBALTA 20 MG ORAL CAPSULE DELAYED RELEASE PARTICLES active 1 tab daily 07/26 Esteban [place] HYDROCODONE-ACETAMI NOPHEN 7.5-650 MG ORAL TABLET completed as needed - Bebe Balderrama ALBUTEROL AERS completed 2 puffs as needed - 02/06 Jeannie Arron HYDROCHLOROTHIAZIDE 12.5 MG ORAL CAPSULE completed ONE TAB. DAILY 01/26 - Bebe Balderrama METFORMIN HCL 500 MG ORAL TABLET completed twice daily - 02/19 Krystian Beyran COREG 12.5 MG ORAL TABLET completed ONE TAB. TWICE DAILY - 02/19 Krystian Taylor OSTEOBIFLEX completed - 01/26 Lorna Kam DARVOCET-N 100 TABS completed ONE TAB. DAILY - 01/26 Lorna Kam NORVASC 10 MG ORAL TABLET completed daily - 07/12 Abelino Ny MD COUMADIN TABLET completed 9.[address] gómez - 02/19 Krystian Taylor PROTONIX 40 MG ORAL TABLET DELAYED RELEASE active ONE TAB.twice DAILY James Weldon RN SOCIAL HISTORY Date Observation Value Provider social history E&M Marital Statu s: L shoaib with family/friends E thnicity: Smoking History: P atient has never smoked. Abelino Ny MD social history reviewed E&M revi ewed - no changes required Abelino Ny MD physical exercise, f requency, days per week no Kena Gipson caffeine use, averag e drinks per day yes Kena Gipson passive cigarette sm rodríguez exposure yes Kena Gipson smoking status Never smoker Kena Gipson social history E&M Marital Statu s: L shoaib with family/friends E thnicity: Smoking History: P atcassandra has never smoked. Abelino Ny MD social history reviewed E&M josefina ewmango - no changes required Abelino Ny MD physical exercise, f requency, days per week no Chastity Kelli alcohol use, average drinks per day none Chastity Kelli alcohol use no Chastity Kelli caffeine use, averag e drinks per day yes Chastity Kelli drug use none Chastity Kelli passive cigarette sm rodríguez exposure yes Chastity Kelli smoking status [facility] social [facility] E&M Marital Statu s: L shoaib with family/friends E thnicity: Smoking History: Naren ames has never smoked. Cameron Ramírez MD social history reviewed E&M revi ewed - no changes required Cameron Ramírez MD physical exercise, f requency, days per week no Jocelyn Block alcohol use, average drinks per day none [facility] alcohol use no Jocelyn Block caffeine use, averag e drinks per day yes [facility] drug use none [facility] passive cigarette sm rodríguez exposure yes [facility] smoking status Never smoker [facility] social history E&M Marital Statu s: L shoaib with family/friends E thnicity: Smoking History: Naren ames has never smoked. Abelino Ny MD social history reviewed E&M revi ewed - no changes required Abelino Ny MD physical exercise, f requency, days per week no [place] [facility] alcohol use, average drinks per day none [facility] alcohol use no Esteban Gonzalez caffeine use, averag e drinks per day yes [place] [facility] drug use none Esteban Gonzalez passive cigarette sm rodríguez exposure [facility]oker [facility] social history reviewed E&M revi ewed - no changes required Abelino Ny MD number of grandchildren Abelino Ny MD physical exercise, f requency, days per week no Bebe Balderrama alcohol use, average drinks per day none Bebe Balderrama alcohol use no Bebe Arun lder caffeine use, averag e drinks per day yes Bebe Balderrama drug use none Bebe Dias lder passive cigarette sm rodríguez exposure yes Bebe Balderrama smoking status Never smoker Bebe Banda sandra social history reviewed E&M revi ewed - no changes required Abelino Ny MD physical exercise, f requency, days per week no Abelino Ny MD alcohol use, average drinks per day none Abelino Ny MD caffeine use, averag e drinks per day yes Abelino Ny MD drug use none Abelino Ny MD passive cigarette sm rodríguez exposure yes Abelino Ny MD smoking status Never smoker Abelino carnes MD alcohol use no Bebe Dias marker social history E&M Marital Statu s: L shoaib with family/friends E thnicity: Smoking History: P hui has never smoked. Abelino Ny MD social history reviewed E&M revi ewed - no changes required Abelino Ny MD physical exercise, f requency, days per week no Lorie Koch alcohol use, average drinks per day none Lorie Koch alcohol use no Lorie Koch caffeine use, averag e drinks per day yes Lorie Koch drug use none Lorie Koch passive cigarette sm rodríguez exposure yes Lorie Koch smoking status Never smoker Lorie beltran social history reviewed E&M revi ewed - no changes required Abelino Ny MD alcohol use no Bebe Dias lder smoking status Never smoker Bebe Banda sandra social history E&M Marital Statu s: L shoaib with family/friends E thnicity: Smoking History: Naren ames has never smoked. Abelino Ny MD social history reviewed E&M revi ewed - no changes required Abelino Ny MD physical exercise, f requency, days per week no Latoya Canseco alcohol use, average drinks per day none Latoya Canseco caffeine use, averag e drinks per day yes Latoya Canseco drug use none Latoya Canseco passive cigarette sm rodríguez exposure yes Latoya Canseco smoking status Never smoker Latoya Wilsonhawa cabello social history reviewed E&M reviewed Abelino Ny MD social history reviewed E&M reviewed James Weldon RN drug use none Abelino Ny MD passive cigarette sm rodríguez exposure yes Bebe Balderrama smoking status never smoker Bebe Solo flores social history reviewed E&M reviewed James Weldon RN social history reviewed E&M reviewed Abelino Ny MD social history reviewed E&M reviewed James Weldon RN social history reviewed E&M reviewed James Weldon RN social history reviewed E&M reviewed James Weldon RN drug use none Abelino Ny MD social history E&M Marital Statu s: L shoaib with family/friends E thnicity: James Weldon RN social history reviewed E&M reviewed James Weldon RN social history reviewed E&M reviewed Gary Angeles MD physical exercise, f requency, days per week no [facility] caffeine use, averag e drinks per day yes [facility] alcohol use, average drinks per day none [facility] smoking status Non-smoker [facility] MENTAL STATUS Date Observation Value Provider assessment of judgme nt and insight E&M Alert and oriented to time, place and person. Mood and affect are normal. Abelino Ny MD assessment of judgme nt and insight E&M Alert and oriented to time, place and person. Mood and affect are normal. James Weldon RN assessment of judgme nt and insight E&M Alert and oriented to time, place and person. Mood and affect are normal. Abelino Ny MD assessment of judgme nt and insight E&M Alert and oriented to time, place and person. Mood and affect are normal. Abelino Ny MD assessment of judgme nt and insight E&M Alert and oriented to time, place and person. Mood and affect are normal. James Weldon RN assessment of judgme nt and insight E&M Alert and oriented to time, place and person. Mood and affect are normal. James Weldon RN assessment of judgme nt and insight E&M Alert and oriented to time, place and person. Mood and affect are normal. James Weldon RN assessment of judgme nt and insight E&M Alert and oriented to time, place and person. Mood and affect are normal. James Weldon RN assessment of judgme nt and insight E&M Alert and oriented to time, place and person. Mood and affect are normal. Gary Angeles MD FAMILY HISTORY Family Member Condition Mother Family History of Hy pertension: Father Negative FH of Coron andrew Artery Disease INSURANCE PROVIDERS Payer name Policy type / Coverage type [employer] O [id number] [employer] FAMILY [employer] Medicaid 0 [id number] ADVANCE DIRECTIVES Name Date DISCUSSED - NO DECISION MADE TREATMENT PLAN Date Name Performer Cardiology:Resolved. Evelio Gilmore Cardiology:Symptomat ic with burning. I have given her a prescription of Gaviscon which will hopefully improve her symptoms. Advised to follow up with bariatric surgeon. SHe continues on Pantoprazole twice daily. I have also given her sublingual nitro to see if it improves her symptoms. Evelio Cardiology:Weight loss advised. Evelio Cardiology:Improved. Evelio Cardiology:Blood pressure contro l is satisfactory. Evelio Cardiology:Intermitt ent leg edema persists. Her echocardiogram was normal. I did discuss a venous doppler with reflux with the patient, she has opted to wait and meet with a senior pl sql developer prior to undergoing any further testing. Abelino Ny MD Cardiology:Blood pressure contro l is satisfactory. Abelino Ny MD Cardiology:Resolved. Abelino yoon MD Cardiology:Weight loss advised. Abelino Ny MD Cardiology Cameron Ramírez MD Cardiology Cameron Ramírez MD Cardiology Cameron Ramírez MD Cardiology Cameron Ramírez MD Cardiology Cameron Ramírez MD Cardiology:No recurrence. Allison Ny MD Cardiology:Her blood pressure has remained within normal range and she is off the metoprolol and lisinopril. Abelino yN MD Cardiology:Weight loss of 135lbs s/p revision. Abelino Ny MD Cardiology:The chest tightness with change in weather with improvement with inhaler is very consistent with hyperreactive airways. She was advised to use Proair inhaler as needed. Abelino Ny MD Cardiology Follow up :Blood pressure control is satisfactory. Continues on lisinopril and metoprolol. Abelino Ny MD Cardiology Follow up Abelino yoon MD Cardiology Follow up :Revised in December, with 52lbs weight loss. Seems to be doing well. Continues on her diet. Abelino Ny MD Cardiology Follow up :Much impro cassi. Abelino Ny MD [facility] Follow up Mo leatha Ny MD [facility] Follow up :On Metformin which she continues. Abelino Ny MD [facility] Follow up Mo leatha Ny MD [facility] Follow up :Blood pressure today is elevated at 180/96. Continues on Lisinopril 10mg daily. Abelino Ny MD [facility] Follow up :Patient has lost weight and plans on continuing weight loss. She continues to follow Bariatric Surgery at [facility]. She continues to follow them and there are plans for a revision of the gastric band surgery in the following few months Abelino Ny MD follow up Abelino Ruiz follow up Abelino Ruiz follow up Abelino Ruiz follow up : H er updated medication list for this problem includes: Metoprolol Tartrate Tabs (Metoprolol tartrate tabs) ..... 1 tab twice Abelino Ny MD follow up : H er updated medication list for this problem includes: Metoprolol Tartrate Tabs (Metoprolol tartrate tabs) ..... 1 tab twice Abelino Ny MD follow up : H er updated medication list for this problem includes: Nitrostat 0.4 Mg Subl (Nitroglycerin) ..... One tab. under tongue as needed. may repeat twice in 10 minutes. Metoprolol Tartrate Tabs (Metoprolol tartrate tabs) ..... 1 tab twice Abelino Ny MD follow up: O rders: S TR - Adenosine (26761) C omplete Echo (CPT-40871) Abelino Ny MD follow up: O rders: S TR - Adenosine (48638) C omplete Echo (CPT-04601) Abelino Ny MD follow up: H er updated medication list for this problem includes: Metoprolol Tartrate Tabs (Metoprolol tartrate tabs) ..... 1 tab twice Orders: S TR - Adenosine (39225) C omplete Echo (CPT-64162) Abelino Ny MD follow up: O rders: S TR - Adenosine (64552) C omplete Echo (CPT-35712) Abelino Ny MD follow up: H er updated medication list for this problem includes: Metoprolol Tartrate Tabs (Metoprolol tartrate tabs) ..... 1 tab twice Orders: S TR - Adenosine (70928) C omplete Echo (CPT-44158) Abelino Ny MD follow up: H er updated medication list for this problem includes: Nitrostat 0.4 Mg Subl (Nitroglycerin) ..... One tab. under tongue as needed. may repeat twice in 10 minutes. Metoprolol Tartrate Tabs (Metoprolol tartrate tabs) ..... 1 tab twice Orders: E KG (CPT-92578) S TR - Adenosine (76541) C omplete Echo (CPT-77075) Abelino Ny MD office visit: T he following medications were removed from the medication list: Norvasc 10 Mg Tabs (Amlodipine besylate) ..... Daily Her updated medication list for this problem includes: Coumadin Tabs (Warfarin sodium tabs) ..... 9.[address] gómez Coreg 12.5 Mg Tabs (Carvedilol) ..... One tab. twice daily BP today: 112/72 Prior BP: 143/83 (01/27/2008) Nuclear Stress Findings: 1. Adenosine infusion per protocol 2 . No undue symptoms or arrhythmias 3 [address] segment depression 4 . Stable hemodynamics 5 . Radiopharmaceutical injected at maximal coronary vasodilation 6 . Pt received 60 mg of Adenosine. 7 . Small reversible inferior wall defect consistent with ischemia. 8 . Ejection Fraction was 31%.( please compare with echo EF) (01/31/2008) C ardiac Cath: Angiographically normal coronary arteries. Normal LV systolic function with an EF of 55%. (02/09/2008) C ardiac Cath Comments: Medical therapy. I see no contraindications for this patient to undergo a bariatric surgery without acceptable risks. (02/09/2008) E chocardiogram: mild atrial enlargement EF 60% (06/15/2007) Abelino Ny MD fu: H er updated medication list for this problem includes: Norvasc 10 Mg Tabs (Amlodipine besylate) ..... Daily Coreg 6.25 Mg Tabs (Carvedilol) ..... Twice daily Hydrochlorothiazide 12.5 Mg Caps (Hydrochlorothiazide) ..... One tab. daily c ontrolled. Gary Angeles MD fu: H er updated medication list for this problem includes: Coumadin Tabs (Warfarin sodium tabs) ..... 9.5 mg f or prophylaxis. Gary Angeles MD fu:on metformin. Gary Angeles MD fu:here for clearanc e for lap band surgery in [place], [place]. will order an adenosine myoview and if normal ok for surgery. a lready on coreg. Gary Angeles MD Date Name TSH, 3RD GENERATION W/REFLEX TO FT4 HEMOGLOBIN A1c LIPID PANEL COMPREHENSIVE METABO LIC PANEL, W/EGFR Complete Echo STR - Adenosine Spirometry Stress Test - Adenos ine Complete Echo Complete Echo Complete Echo Stress Test - Adenos ine HISTORY OF PROCEDURES Procedure Date Procedure Name Provider Procedure Notes S tatus EKG Abelino Ny MD complet ed EKG Abelino Ny MD complet ed EKG Abelino Ny MD complet ed EKG Abelino Ny MD complet ed SNOMED-CT: 135881014 [id number] Current Medications Documented Abelino Ny MD completed SNOMED-CT: 498757018 Smoking Cessation Counseling Abelino Ny MD completed SNOMED-CT: 17143299 Physical Exam, Performed: Pulse Exam of Foot Abelino Ny MD completed EKG Abelino Ny MD complet ed SNOMED-CT: 996213529 425544 Current Medications Documented Abelino Ny MD completed EKGalen Ny MD complet ed EKG Abelino Ny MD complet ed EKGalen Ny MD complet ed ePrescribe - Check t his box if eRx is used Abelino Ny MD completed EKG Abelino Ny MD complet ed EKG Abelino Ny MD complet ed EKGalen Ny MD complet ed
--- OUTSIDE RECORDS SUMMARY | 2024-08-10 11:56 | XMS_ITS | Encounter Summary ---
Author Organization [facility] Health Address [address] [place] [address] Care Team Providers Care Sugar Grinder Name Role Phone Henry Ruiz DO Primary Care Provider [phone] Encounter Details Date Type Department Care Team (Late st Contact Info) Description 12/14/2017 Telephone [facility] [address] [place] [address] Nicholas Peacock MD [address] [place] [address] Social History Tobacco Use Types Packs/Day Years Used Date Smoking Tobacco: Never Smokeless Tobacco: Never Alcohol Use Standard Drinks/Week Comments No 0 (1 standard drink = 0.6 oz pur e alcohol) 1-2 X A YEAR IF THAT Sex and Gender Information Value Date Recorded Sex Assigned at Not on file Gender Identity Not on file Sexual Orientation Not on file documented as of this encounter Functional Status Functional Status Response Date of Assess ment Is person deaf or have serious hearing difficult y? No 01/18/2017 Is person blind or have serious difficulty seein g? No 01/18/2017 Does person have serious dif ficulty walking/climbing stairs? No 01/18/2017 Does person have difficulty dressing/bathing? No 01/18/2017 Does person have difficulty doing errands alone? No 01/18/2017 Cognitive Status Response Date of Assessm ent Does person have difficulty concentrating/remembering/making decisions? No 01/18/2017 documented as of this encounter Miscellaneous Notes * Telephone Encounter - Sintia Graf - 12/14/2017 1:18 PM CDT Patient scheduled for New Patient appointment. 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 Appointment [facility] [address] [place] [address] Nicholas Peacock MD [address] [facility] [address] [place] [address] 05/04/2025 11:00 AM LASER MACHINE OPERATOR Office Visit [facility] [address] [facility] [address] [place] [address] Blanca Kamara, EDGE DRUMMER-ENERGY TECHNICIAN [address] [facility] [address] [place] [address] documented as of this encounter Visit Diagnoses Not on filedocumented in this encounter Additional Health Concerns Infection Onset Date Last Indicated Resolved Time COVID-19 Confirmed 07/07/2021 07/07/2021 2 4:33 AM LASER MACHINE OPERATOR documented as of this encounter Care Teams Sugar Grinder Relationship Specialty Start Date End Date Henry Ruiz DO PCP - General Internal Medicine 10/12/15 documented as of this encounter
--- OUTSIDE RECORDS SUMMARY | 2024-08-10 11:56 | XMS_ITS | Clinical Summary ---
Author Organization [facility] Address [address] [place] [address] Care Team Providers Care Forms Examiner Name Role Phone Henry Ruiz DO Primary Care Provider [phone] Source Comments [facility],non-owned Affiliates and Associated Physician Practices is amultiple site organization consisting of ambulatory clinics and hospital sitesin [place], [place] and [place]. This disclosure is being madepursuant to the Care Everywhere program and may not contain all information available regarding this patient. Last updated 18.[facility] Allergies Active Allergy Reactions Criticality Noted Date [...] mouth once daily 03/17/2022 Active nystatin (Mycostatin) 335654 UNIT/GM cream Apply to affected area 2 [...] epigastric 05/22/2022 1 08/02/2021 Constipation 05/04/2018 07/29/2021 Encounters Date Type Department Care Team Description 05/28/2024 Refill [facility] [address], [address] [place] [address] Hortensia Covington, TUBE MAKING MACHINE OPERATOR-SECURITY RISK ANALYST Refill Request from Last 3 Months Family History Medical History Relation Name Comments Arthritis - Rheumatoid Brother 2 Hypertension Brother 3 Arthritis - Osteo Maternal Grandfather Arthritis - Rheumatoid Maternal Grandfather Cancer Maternal Grandfather Heart Failure Maternal Grandfather Hypertension Maternal Grandfather Arthritis - Rheumatoid Maternal Grandmother Cancer Maternal Grandmother Migraine Maternal Grandmother Arthritis - Rheumatoid Mother Hypertension Mother Relation Name Status Comments Brother 1 Alive Brother 2 Brother 3 Father Alive Maternal Grandfather Maternal Grandmother Mother Alive Social History Tobacco Use Types Packs/Day Years [...] Comments Blood Pressure 124/82 05/05/2024 11:15 AM INFORMATION ASSURANCE Pulse 76 05/05/2024 11:15 AM INFORMATION ASSURANCE Temperature 36.1 C (96.9 F) 05/05/2024 11:15 AM INFORMATION ASSURANCE Respiratory Rate 14 12/14/2023 8:20 AM CDT Oxygen Saturation 96% 05/05/2024 11: 15 AM INFORMATION ASSURANCE Inhaled Oxygen Concentration - - Weight 69.3 kg (152 lb 12.8 oz) 024 11:15 AM INFORMATION ASSURANCE Height 167.6 cm (5' 6 ) 05/05/2024 11:1 5 AM INFORMATION ASSURANCE Body Mass Index 24.66 05/05/2024 11:15 AM INFORMATION ASSURANCE Plan of Treatment Upcoming Encounters Date Type Department Care Team (Late st Contact Info) Description 08/30/2024 10:00 AM INFORMATION ASSURANCE Appointment [facility] SCAN [address] [place] [address] Nicholas Peacock MD [address] [place] [address] 05/04/2025 11:00 AM INFORMATION ASSURANCE Office Visit [facility] [id number] [place] [address], [address] [place] [address] Blanca Kamara, TUBE MAKING MACHINE OPERATOR-SECURITY RISK ANALYST [address] [place] [address] Health Maintenance Due Date Last Done Comments MAMMOGRAM 1979 HIV SCREENING 11/27/1994 DTAP/TDAP/TD VACCINES (1 - Tdap) 11/27/1998 HEPATITIS B VACCINE (1 of 3 - 19+ 3-dose series) 11/27/1998 PNEUMOCOCCAL VACCINE (1 of 2 - PCV) 11/27/1998 DIABETES-FOOT EXAM WITH MONOFILAMENT 09/02/2022 DIABETES-HGB A1C 09/02/2022 COVID-19 VACCINE ( - season) 2024 INFLUENZA VACCINE (#1) 2024 DIABETES RETINOPATHY SCREENING 03/10/2024 03/10/2022, 08/27/2021 DEPRESSION SCREENING 06/29/2024 11/14/2021 DIABETES - URINE PROTEIN SCREENING 06/29/2024 MEDICARE AWV CALENDAR YEAR 2024 DIABETES-SERUM CREATININE 06/03/20252023, 09/01/2023, 06/16/2023, Additional history exists ZOSTER VACCINE (1 of 2) 11/27/2029 HEPATITIS C SCREENING Completed 05/17/2021 HIB VACCINE Aged Out No longer eligi ble based on patient's age to complete this topic HPV VACCINE Aged Out No longer eligi ble based on patient's age to complete this topic MENINGOCOCCAL (Group B) VACCINE Aged Out No longer eligible based on patient's age to complete this topic MENINGOCOCCAL VACCINE Aged Out No ramiro suzanne eligible based on patient's age to complete this topic Goals Goal Patient Goal Type Associated Problems Recent Progress Patient-Stated? Author Medication Management General On track( 022 1:05 PM CDT) No Tu Rose, VU Note: Expected end date: ongoing Interventions: Take all medications as prescribed Let your doctor know right away about any changes in your medications Make sure to request a refill of your medication at least one week prior to your last dose Medical Devices Implanted Type Area Backshoe Person Device Identifier Shelf Expiration Date Model / Serial / Lot Set Xtrn Ashley 35cm 1.9mm 3-15cm Cath Inr Implanted:Qty: 1 on 07/08/2021 by Nicholas Peacock MD at [facility] N/A: Cranial Integra [employer] 02/26/2022 [id number] / / [id number] Sugita Titanium Aneurysm Clip Implanted:Qty: 1 on 07/08/2021 by Nicholas Peacock MD at [facility] Right: Cranial Abundio Stephenson 001-33 / 101SDCH / 101-SD Sugita Titanium Aneurysm Clip Implanted:Qty: 1 on 07/08/2021 by Nicholas Peacock MD at [facility] Right: Cranial Abundio Stephenson -87 / 38-TK / [id number] Graft Tissue Drgn + Bvn Clgn Mtrx 5x4in Implanted:Qty: 1 on 07/08/2021 by Nicholas Peacock MD at [facility] N/A: Cranial Inte[employer] 01/27/2024 [id number] / / [id number] Plate 2 Hl Lopro Crnmxf 15mm Str Lucio Implanted:Qty: 2 on 07/08/2021 by Nicholas Peacock MD at [facility] N/A: Cranial Jazmín Biomet 19-1005 / / Plate 4 Hl Lopro Crnmxf 22mm Lng Str Implanted:Qty: 1 on 07/08/2021 by Nicholas Peacock MD at [facility] N/A: Cranial Jazmín [employer]omet [id number] / / Cover Bur Hl 13.5mm Spne Bnt Implanted:Qty: 2 on 07/08/2021 by Nicholas Peacock MD at [facility] N/A: Cranial Jazmín [employer]omet [id number] / / Screw 1.5mm 4mm Slf Drl Xdr Crnmxf Implanted:Qty: 12 on 07/08/2021 by Nicholas Peacock MD at [facility] N/A: Cranial Jazmín [employer] 91-6704 / / Explanted Type Area Backshoe Person Device Identifier Shelf Expiration Date Model / Serial / Lot Cover Bur Hl 13.5mm Spne Bnt Explanted:Qty: 1 on 07/08/2021 by Nicholas Peacock MD at [facility] N/A: Cranial Jazmín [employer] 19-1019 / / Screw 1.5mm 4mm Slf Drl Xdr Crnmxf Explanted:Qty: 1 on 07/08/2021 by Nicholas Peacock MD at [facility] N/A: Cranial Jazmín [employer]omet 91-6704 / / Sugita Titanium Aneurysm Clip Explanted:Qty: 1 on 07/08/2021 by Nicholas Peacock MD at [facility] Right: Cranial Abundio Seema 17-006-27 / [id number] / 24-TK Procedures Procedure Name Priority Date/Time Associated Diagnosis Comments ZINC BLOOD Routine 06/03/2024 2:17 PM INFORMATION ASSURANCE Morbid obesity (HCC) Bariatric surgery status Vitamin deficiency Vitamin D deficiency Postsurgical malabsorption (HCC) VITAMIN K1 Routine 06/03/2024 2:17 PM INFORMATION ASSURANCE Morbid obesity (HCC) Bariatric surgery status Vitamin deficiency Vitamin D deficiency Postsurgical malabsorption (HCC) VITAMIN E Routine 06/03/2024 2:17 PM INFORMATION ASSURANCE Morbid obesity (HCC) Bariatric surgery status Vitamin deficiency Vitamin D deficiency Postsurgical malabsorption (HCC) VITAMIN D 25-HYDROXY Routine 06/03/2024 2:17 PM INFORMATION ASSURANCE Morbid obesity (HCC) Bariatric surgery status Vitamin deficiency Vitamin D deficiency Postsurgical malabsorption (HCC) VITAMIN B12 Routine 06/03/2024 2:17 PM INFORMATION ASSURANCE Morbid obesity (HCC) Bariatric surgery status Vitamin deficiency Vitamin D deficiency Postsurgical malabsorption (HCC) VITAMIN B1 Routine 06/03/2024 2:17 PM INFORMATION ASSURANCE Morbid obesity (HCC) Bariatric surgery status Vitamin deficiency Vitamin D deficiency Postsurgical malabsorption (HCC) VITAMIN A Routine 06/03/2024 2:17 PM INFORMATION ASSURANCE Morbid obesity (HCC) Bariatric surgery status Vitamin deficiency Vitamin D deficiency Postsurgical malabsorption (HCC) PTH INTACT Routine 06/03/2024 2:17 PM INFORMATION ASSURANCE Morbid obesity (HCC) Bariatric surgery status Vitamin deficiency Vitamin D deficiency Postsurgical malabsorption (HCC) MAGNESIUM BLOOD Routine 06/03/2024 2:17 PM INFORMATION ASSURANCE Morbid obesity (HCC) Bariatric surgery status Vitamin deficiency Vitamin D deficiency Postsurgical malabsorption (HCC) IRON + TIBC PANEL Routine 06/03/2024 2:1 7 PM INFORMATION ASSURANCE Morbid obesity (HCC) Bariatric surgery status Vitamin deficiency Vitamin D deficiency Postsurgical malabsorption (HCC) FOLATE Routine 06/03/2024 2:17 PM INFORMATION ASSURANCE Morbid obesity (HCC) Bariatric surgery status Vitamin deficiency Vitamin D deficiency Postsurgical malabsorption (HCC) FERRITIN Routine 06/03/2024 2:17 PM INFORMATION ASSURANCE Morbid obesity (HCC) Bariatric surgery status Vitamin deficiency Vitamin D deficiency Postsurgical malabsorption (HCC) COPPER BLOOD Routine 06/03/2024 2:17 PM INFORMATION ASSURANCE Morbid obesity (HCC) Bariatric surgery status Vitamin deficiency Vitamin D deficiency Postsurgical malabsorption (HCC) COMPREHENSIVE METABOLIC PANEL Routine 06/03/2024 2:17 PM INFORMATION ASSURANCE Morbid obesity (HCC) Bariatric surgery status Vitamin deficiency Vitamin D deficiency Postsurgical malabsorption (HCC) CBC W/O DIFFERENTIAL Routine 06/03/2024 2:17 PM INFORMATION ASSURANCE Morbid obesity (HCC) Bariatric surgery status Vitamin deficiency Vitamin D deficiency Postsurgical malabsorption (HCC) EYE EXAM 03/10/2022 HEPATITIS C ANTIBODY Routine 05/17/2021 10:52 AM INFORMATION ASSURANCE Abnormal LFTs from Last 3 Months or Most Recently Relevant to Health Maintenance Results * VITAMIN K1 (06/03/2024 2:17 PM INFORMATION ASSURANCE) Vitamin K1 0.56 0.10 - 2.20 ng/mL [facility] ACCOUNT BILL Blood BLOOD SPECIMEN / Unknown 06/03/2024 2:17 PM INFORMATION ASSURANCE 06/03/2024 Narrative [facility] ACCOUNT BILL - 06/07/2024 12:07 PM INFORMATION ASSURANCE Test(s) 582630-Yenjpup K1 was developed and its performance characteristics determined by [facility]. It has not been cleared or approved by the Food and Drug Administration. Performed at: - [facility] [address] [id number] Cook Dinner: Araceli Cotter MD, Phone: [phone] Blanca Kamara APRN-SECURITY RISK ANALYST LAB - CHEMIS TRY ORDERABLES Performing Organization Address [facility] Co de Phone Number [facility] ACCOUNT BILL [address] [place] [address] * ZINC BLOOD (06/03/2024 2:17 PM INFORMATION ASSURANCE) Zinc, Plasma or Serum 68 44 - 115 ug/dL [facility] ACCOUNT BILL Comment:Detection Limit = 5 Blood BLOOD SPECIMEN / Unknown 06/03/2024 2:17 PM INFORMATION ASSURANCE 06/03/2024 Narrative [facility] ACCOUNT BILL - 06/07/2024 6:06 AM INFORMATION ASSURANCE Test(s) 806873-Favo, Plasma or Serum was developed and its performance characteristics determined by [facility]. It has not been cleared or approved by the Food and Drug Administration. Performed at: - [facility] [address] [id number] Cook Dinner: Araceli Cotter MD, Phone: [phone] Blanca MOSS LAB - CHEMIS TRY ORDERABLES Performing Organization Address [facility] Co de Phone Number [facility] ACCOUNT BILL [address] [place] [address] * VITAMIN A (06/03/2024 2:17 PM INFORMATION ASSURANCE) Vitamin A 33.7 20.1 - 62.0 ug/dL [facility] ACCOUNT BILL Comment: Reference intervals for vitamin A determined from [facility] internal studies. Individuals with vitamin A less than 20 ug/dL are considered vitamin A deficient and those with serum concentrations less than 10 ug/dL are considered severely deficient. This test was developed and its performance characteristics determined by [facility]. It has not been cleared or approved by the Food and Drug Administration. Blood BLOOD SPECIMEN / Unknown 06/03/2024 2:17 PM INFORMATION ASSURANCE 06/03/2024 Narrative [facility] ACCOUNT BILL - 06/11/2024 12:06 PM INFORMATION ASSURANCE Performed at: - [facility] [address] [id number] Cook Dinner: Araceli Cotter MD, Phone: [phone] Blanca Kamara APRN-SECURITY RISK ANALYST LAB - CHEMIS TRY ORDERABLES [facility] ACCOUNT BILL [address] [place] [address] * (ABNORMAL) VITAMIN E (06/03/2024 2:17 PM INFORMATION ASSURANCE) Vitamin E Alpha Tocopherol 8.1 7.0 - 25.1 mg/L [facility] ACCOUNT BILL Vitamin E Gamma Tocopherol 0.1(L) 0.5 - 5.5 mg/L [facility] ACCOUNT BILL Comment: Reference intervals for alpha and gamma-tocopherol determined from National Health and Nutrition Examination Survey, 6551-0817. Individuals with alpha-tocopherol levels less than 5.0 mg/L are considered vitamin E deficient. Blood BLOOD SPECIMEN / Unknown 06/03/2024 2:17 PM INFORMATION ASSURANCE 06/03/2024 Narrative [facility] ACCOUNT BILL - 06/11/2024 12:06 PM INFORMATION ASSURANCE Test(s) 791271-Cxtpdqn E(Alpha Tocopherol); 035393- Vitamin E(Gamma Tocopherol) was developed and its performance characteristics determined by [facility]. It has not been cleared or approved by the Food and Drug Administration. Performed at: - [facility] [address] [id number] Cook Dinner: Araceli Cotter MD, Phone: [phone] Blanca Kamara APRN-SECURITY RISK ANALYST LAB - CHEMIS TRY ORDERABLES [facility] ACCOUNT BILL [address] [place] [address] * VITAMIN B1 (06/03/2024 2:17 PM INFORMATION ASSURANCE) Vitamin B1 Whole Blood 174.0 66.5 - 200.0 nmol/L [facility] ACCOUNT BILL Blood BLOOD SPECIMEN / Unknown 06/03/2024 2:17 PM INFORMATION ASSURANCE 06/03/2024 Narrative [facility] ACCOUNT BILL - 06/07/2024 2:07 PM INFORMATION ASSURANCE Test(s) 173749-Grf. B1, Whole Blood was developed and its performance characteristics determined by [facility]. It has not been cleared or approved by the Food and Drug Administration. Performed at: - [facility] [id number] Cook Dinner: Araceli Cotter MD, Phone: [phone] Blanca Kamara APRN-SECURITY RISK ANALYST LAB - CHEMIS TRY ORDERABLES Performing Organization Address City/[facility]/ZIP Co de Phone Number [facility] ACCOUNT BILL [address] [place] [address] * PTH INTACT (06/03/2024 2:17 PM INFORMATION ASSURANCE) PTH Intact 37 15 - 65 pg/mL [facility] ACCOUNT BILL Blood BLOOD SPECIMEN / Unknown 06/03/2024 2:17 PM INFORMATION ASSURANCE 06/03/2024 Narrative [facility] ACCOUNT BILL - 06/05/2024 12:05 PM INFORMATION ASSURANCE Performed at: - [facility] [id number] Cook Dinner: Gagandeep Gamble PhD, Phone: [phone] Blanca Kamara APRN-SECURITY RISK ANALYST LAB - CHEMIS TRY ORDERABLES [facility] ACCOUNT BILL [address] [place] [address] * COPPER BLOOD (06/03/2024 2:17 PM INFORMATION ASSURANCE) Copper 91 80 - 158 ug/dL [facility] ACCOUNT BILL Comment:Detection Limit = 5 Blood BLOOD SPECIMEN / Unknown 06/03/2024 2:17 PM INFORMATION ASSURANCE 06/03/2024 Narrative [facility] ACCOUNT BILL - 06/07/2024 6:06 AM INFORMATION ASSURANCE Test(s) 975293-Zpqvgs, Serum or Plasma was developed and its performance characteristics determined by [facility]. It has not been cleared or approved by the Food and Drug Administration. Performed at: - [facility] [id number] Cook Dinner: Araceli Cotter MD, Phone: [phone] Blanca Kamara APRN-SECURITY RISK ANALYST LAB - CHEMIS TRY ORDERABLES Performing Organization Address [facility] Co de Phone Number [facility] ACCOUNT BILL [address] [place] [address] * VITAMIN D 25-HYDROXY (06/03/2024 2:17 PM INFORMATION ASSURANCE) [facility] Vitamin D, 25 Hydroxy 44.9 30.0 - 100.0 ng/mL [facility] ACCOUNT BILL Comment: Vitamin D deficiency has been defined by the [place] of Medicine and an Endocrine Society practice guideline as a level of serum 25-OH vitamin D less than 20 ng/mL (1,2). The Endocrine Society went on to further define vitamin D insufficiency as a level between 21 and 29 ng/mL (2). 1. IOM ([place] of Medicine). 2010. Dietary reference intakes for calcium and D. [place]: The National Academies Press. 2. Keren JARAMILLO, Michael MORE, Sunitha FINLEY, et al. Evaluation, treatment, and prevention of vitamin D deficiency: an Endocrine Society clinical practice guideline. JCEM. 2010; 96(7):1911-30. Blood BLOOD SPECIMEN / Unknown 06/03/2024 2:17 PM INFORMATION ASSURANCE 06/03/2024 Narrative [facility] ACCOUNT BILL - 06/04/2024 7:07 AM INFORMATION ASSURANCE Performed at: - [facility] [id number] Cook Dinner: Gagandeep Gamble PhD, Phone: [phone] Blanca Kamara APRN-SECURITY RISK ANALYST LAB - CHEMIS TRY ORDERABLES Performing Organization Address [facility] Co de Phone Number [facility] ACCOUNT BILL [address] [place] [address] * (ABNORMAL) CBC W/O DIFFERENTIAL (06/03/2024 2:17 PM INFORMATION ASSURANCE) WBC 5.8 3.4 - 10.8 x10E3/uL [facility] [...] BLOOD SPECIMEN / Unknown 06/03/2024 2:17 PM INFORMATION ASSURANCE 06/03/2024 Narrative [facility] ACCOUNT BILL - 06/04/2024 7:07 AM INFORMATION ASSURANCE Performed at: 01 - [facility] [id number] [place], [place] [id number] Cook Dinner: Gagandeep Gamble PhD, Phone: [phone] Blanca Kamara APRN-SECURITY RISK ANALYST LAB - HEMATO LOGY ORDERABLES [facility] ACCOUNT BILL [address] [place] [address] * (ABNORMAL) COMPREHENSIVE METABOLIC PANEL (06/03/2024 2:17 PM INFORMATION ASSURANCE) Glucose 84 70 - 99 mg/dL [facility] [...] BLOOD SPECIMEN / Unknown 06/03/2024 2:17 PM INFORMATION ASSURANCE 06/03/2024 Narrative [facility] ACCOUNT BILL - 06/04/2024 8:09 AM INFORMATION ASSURANCE Performed at: - [facility] [id number] Cook Dinner: Gagandeep Gamble PhD, Phone: [phone] Blanca Kamara APRN-SECURITY RISK ANALYST LAB - CHEMIS TRY ORDERABLES Performing Organization Address [facility] de Phone Number [facility] ACCOUNT BILL [address] [place] [address] * MAGNESIUM BLOOD (06/03/2024 2:17 PM INFORMATION ASSURANCE) Magnesium 1.9 1.6 - 2.3 mg/dL [facility] ACCOUNT BILL Blood BLOOD SPECIMEN / Unknown 06/03/2024 2:17 PM INFORMATION ASSURANCE 06/03/2024 Narrative [facility] ACCOUNT BILL - 06/04/2024 8:09 AM INFORMATION ASSURANCE Performed at: [facility] [id number] Cook Dinner: Gagandeep Gamble PhD, Phone: [phone] Blanca Kamara APRN-SECURITY RISK ANALYST LAB - CHEMIS TRY ORDERABLES Performing Organization Address City/[facility] Co de Phone Number [facility] ACCOUNT BILL [address] [place] [address] * IRON + TIBC PANEL (06/03/2024 2:17 PM INFORMATION ASSURANCE) Pathologist [facility] TIBC 283 250 - 450 ug/dL [facility] ACCOUNT BILL UIBC 222 131 - 425 ug/dL [facility] ACCOUNT BILL Iron 61 27 - 159 ug/dL [facility] ACCOUNT BILL Iron Saturation 22 15 - 55 % [facility] ACCOUNT BILL Blood BLOOD SPECIMEN / Unknown 06/03/2024 2:17 PM INFORMATION ASSURANCE 06/03/2024 Narrative [facility] ACCOUNT BILL - 06/04/2024 8:09 AM INFORMATION ASSURANCE Performed at: 01 - [facility] [id number] Cook Dinner: Gagandeep Gamble PhD, Phone: [phone] Blanca Kamara APRN-SECURITY RISK ANALYST LAB - CHEMIS TRY ORDERABLES Performing Organization Address [facility] Co de Phone Number [facility] ACCOUNT BILL [address] [place] [address] * FOLATE (06/03/2024 2:17 PM INFORMATION ASSURANCE) Pathologist [facility] Folate >20.0 >3.0 ng/mL [facility] ACCOUNT BILL Comment: A serum folate concentration of less than 3.1 ng/mL is considered to represent clinical deficiency. Blood BLOOD SPECIMEN / Unknown 06/03/2024 2:17 PM INFORMATION ASSURANCE 06/03/2024 Narrative [facility] ACCOUNT BILL - 06/04/2024 9:35 AM INFORMATION ASSURANCE Performed at: - [facility] [id number] Cook Dinner: Gagandeep Gamble PhD, Phone: [phone] Blanca Kamara APRN-SECURITY RISK ANALYST LAB - CHEMIS TRY ORDERABLES Performing Organization Address City/[facility] Co de Phone Number [facility] ACCOUNT BILL [address] [place] [address] * VITAMIN B12 (06/03/2024 2:17 PM INFORMATION ASSURANCE) Pathologist [facility] Vitamin B12 1,045 232 - 1,245 pg/mL [facility] ACCOUNT BILL Blood BLOOD SPECIMEN / Unknown 06/03/2024 2:17 PM INFORMATION ASSURANCE 06/03/2024 Narrative [facility] ACCOUNT BILL - 06/04/2024 9:35 AM INFORMATION ASSURANCE Performed at: [facility] [id number] Cook Dinner: Gagandeep Gamble PhD, Phone: [phone] Blanca Kamara APRN-[employer]BestHelper LAB - CHEMIS TRY ORDERABLES Performing Organization Address City/[facility]/ZIP Co de Phone Number [facility] ACCOUNT BILL [address] [place] [address] * FERRITIN (06/03/2024 2:17 PM INFORMATION ASSURANCE) [facility] Ferritin 50 15 - 150 ng/mL [facility] ACCOUNT BILL Blood BLOOD SPECIMEN / Unknown 06/03/2024 2:17 PM INFORMATION ASSURANCE 06/03/2024 Narrative [facility] ACCOUNT BILL - 06/04/2024 8:09 AM INFORMATION ASSURANCE Performed at: - [facility] [id number] Cook Dinner: Gagandeep Gamble PhD, Phone: [phone] Blanca Kamara APRN-myBestHelper LAB - CHEMIS TRY ORDERABLES Performing Organization Address City/[facility]/ZIP Co de Phone Number [facility] ACCOUNT BILL [address] [place] [address] * EYE EXAM (03/10/2022) Anatomical Region Laterality Modality Other Narrative 03/10/2022 Ordered by an unspecified provider. Scanned Document SCANNING ONLY * HEPATITIS C ANTIBODY (05/17/2021 10:52 AM INFORMATION ASSURANCE) [facility] Hepatitis C Antibody Non-react curtis Non-reac tive 05/17/2021 12:48 PM INFORMATION ASSURANCE [facility] Comment:Hepatitis C Antibody screen indicates [...] Lab Venipuncture / Unknown 05/17/2021 10:52 AM INFORMATION ASSURANCE 05/17/2021 11:49 AM INFORMATION ASSURANCE Ori Zarco MD LAB - CHEMIS TRY ORDERABLES [facility] [address] [place] [address], [facility] [phone] from Last 3 Months or Most Recently [...] 10:55 AM 12/02/2015 1:56 PM Care Teams Forms Examiner Relationship Specialty Start Date End Date Henry Ruiz DO PCP - General Internal Medicine 10/12/15
--- OUTSIDE RECORDS SUMMARY | 2024-08-10 11:56 | XMS_ITS | Referral Summary ---
Author Organization [facility] Address [address] [place] [phone] Care Team Providers Care Brooch And Bracelet Maker Name Role Phone Henry Ruiz DO Primary Care Provider [phone] Nicholas Peacock MD Unavailable [phone] Lolita Colon MD Unavailable [phone] Encounters Date Type Department Care Team Description 08/10/2024 9:30 AM CONTRACTS ADMINISTRATOR Office Visit [address] [place] [phone] Gin Conte NP Status post panniculectomy (Primary Dx) 07/15/2024 11:00 AM CONTRACTS ADMINISTRATOR Office Visit [address] [place] [phone] Russell Louie MD Loose skin (Primary Dx); Status post panniculectomy 07/07/[address] [place] [phone] Lyndsay Mohan, VU 07/04/[address] [place] [phone] Rayna Wan RMA 06/03/2024 9:15 AM CONTRACTS ADMINISTRATOR Office Visit [address] [place] [address] Status post panniculectomy (Primary Dx) 05/31/2024 9:18 AM CONTRACTS ADMINISTRATOR - 05/31/2024 11:59 PM CONTRACTS ADMINISTRATOR Hospital Encounter [facility] 1 [place] [address] Loose skin; Edema of extremity of unknown cause Discharge Disposition: Discharge to home or self care 05/30/2024 1:10 PM CONTRACTS ADMINISTRATOR - 05/30/2024 11:59 PM CONTRACTS ADMINISTRATOR Hospital Encounter [facility] 1 [place] [address] Loose skin; Edema of extremities Discharge Disposition: Discharge to home or self care 05/30/2024 Orders Only [facility] Surgery 2 [facility] A [address] [place] [phone] Lyndsay Mohan, VU Loose skin (Primary Dx); Edema of extremity of unknown cause; Edema of extremities 05/25/2024 1:30 PM CONTRACTS ADMINISTRATOR Office Visit [facility] Surgery 2 [facility] A [address] [place] [phone] Loose skin (Primary Dx) 05/24/2024 Orders Only [facility] Surgery 2 [facility] [address] [place] [phone] Russell Louie MD 05/20/2024 [facility] Post Discharge Follow up phone call [facility] IMU 1 [place] [address] Clair Hamilton, VU 05/19/2024 10:30 AM CONTRACTS ADMINISTRATOR Office Visit [facility] Surgery 2 [facility] A [address] [place] [phone] Loose skin (Primary Dx) 05/12/2024 7:02 AM CONTRACTS ADMINISTRATOR - 05/17/2024 4:58 PM CONTRACTS ADMINISTRATOR Hospital Encounter [facility] Surgery Care 1 [place] [address] Russell Louie MD Nikolic, Jelena, MD Excess skin Discharge Disposition: Discharge to home or self care 05/12/2024 Orders Only [facility] Operating Room 1 [place] [address] Russell Louie MD 05/12/2024 8:30 AM CONTRACTS ADMINISTRATOR - 05/12/2024 11:50 AM CONTRACTS ADMINISTRATOR Surgery [facility] Operating Room 1 [place] [address] Russell Louie MD [id number] PANNICULECTOMY 05/12/2024 8:26 AM CONTRACTS ADMINISTRATOR Anesthesia Event [facility] Operating Room 1 [place] [address] Charisse Juarez Jr., MD Reynolds, Josue Bautista MD from Last 3 Months Allergies Active Allergy Reactions Criticality Noted Date Comments Morphine Itching Low 12/13/2022 Nsaids (Non-Steroidal Anti-Inflammatory Drug) Other (See comments) Low 02/15/2024 Contraindicated, gastric bypass Medications atorvastatin (LIPITOR) 40 mg tablet 1 tablet BEDTIME (route: oral) 08/04/19 22 Active linaCLOtide (Linzess) 145 mcg capsule 06/19/20 21 Active lisinopriL (PRINIVIL,ZESTRIL ) 5 mg tablet 3 tablet DAILY (route: oral) 08/04/19 22 Active butalbital-acetam inophen-caffeine (ESGIC) 50-325-40 mg per tablet 08/14/19 22 Active dexlansoprazole (DEXILANT) 30 mg capsule Take 1 capsule (30 mg total) by mouth daily 12/20/19 22 Active hydrOXYzine (ATARAX) 10 mg tablet 01/25/20 22 Active lidocaine (LIDODERM) 5 % Place 1 patch on the skin daily for 14 days Remove & discard patch within 12 hours or as directed by . 14 patch 12/14/19 23 Active cyclobenzaprine (FLEXERIL) 10 mg tablet Take 1 tablet (10 mg total) by mouth 2 (two) times a day as needed 02/02/[address] (CYMBALTA) 60 mg capsule Take 1 capsule (60 mg total) by mouth daily 02/02/[address] (PROTONIX) 40 mg EC tablet Take 1 tablet (40 mg total) by mouth nightly at bedtime 12/20/19 24 Active Aimovig Autoinjector 140 mg/mL auto-injector ADMINISTER 1 ML UNDER THE SKIN MONTHLY 01/19/[address] (CYMBALTA) 20 mg capsule Take 1 capsule (20 mg total) by mouth daily 03/22/20 24 Active ELDERBERRY FRUIT ORAL Take 50 mg by mouth daily Active multivit-min/iron /folic acid/K (BARIATRIC MULTIVITAMINS ORAL) Take 1 tablet by mouth daily Active ferrous sulfate ER 324 mg (65 mg iron) EC tabletIndications :Iron Deficiency Anemia Take 65 mg by mouth daily with breakfast Active vitamin K2 100 mcg capsule Take 1 tablet by mouth daily Active vitamin E 400 unit capsule Take 1 capsule (400 Units total) by mouth Active ascorbic acid (ascorbic acid with héctor hips) 500 mg tablet,chewable Take 1 tablet/chew tab (500 mg total) by mouth daily Active acidophilus-pecti n, citrus 100 million cell-10 mg capsule Take 1 capsule by mouth daily Active calcium citrate-vitamin D3 (CITRACAL WITH D) 315 mg-6.25 mcg (250 unit) per tablet Take 1 tablet by mouth 3 (three) times a day with meals Active ondansetron ODT (ZOFRAN-ODT) 8 mg disintegrating tabletIndications :Prevention of Post-Operative Nausea and Vomiting Take 1 tablet (8 mg total) by mouth every 8 (eight) hours as needed for nausea or vomiting 12 tablet 1 05/12/20 24 Active HYDROcodone-aceta minophen (NORCO) 5-325 mg per tabletIndications :Pain Take 1 tablet by mouth every 6 (six) hours as needed for pain 20 tablet 05/24/20 24 Active oxyCODONE-acetami nophen (PERCOCET) 10-325 mg per tablet Take 1 tablet by mouth 2 (two) times a day as needed 06/30/19 25 Active Mounjaro 12.5 mg/0.5 mL pen injector ADMINISTER 12.5 MG UNDER THE SKIN WEEKLY 06/28/20 24 Active Mounjaro 10 mg/0.5 mL pen injector ADMINISTER 10 MG UNDER THE SKIN WEEKLY 02/11/20 24 2024 Discontinued Active Problems Problem Noted Date Diagnosed Date 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 07/15/2024 Other chest pain 07/15/2024 Status post panniculectomy 05/12/2024 Excess skin 03/25/2024 Derangement of knee 02/15/2024 Fracture of bone 02/15/2024 Left ovarian cyst 02/15/2024 Osteoarthritis 02/15/2024 Pain in limb 02/15/2024 Arthralgia of left ankle 12/25/2022 Arthralgia of left knee 12/25/2022 Sprain of left ankle 12/25/2022 Ruptured cerebral aneurysm (CMS/HCC) 07/19/2021 Acute headache 07/19/2021 Essential (primary) hypertension 07/19/2021 Subarachnoid hemorrhage (CMS/HCC) 07/05/2021 NAFLD (nonalcoholic fatty liver disease) 021 Overview (02/15/2024): 05/17/21 Fibroscan CAP 376, LSM 9.5 kPa Hammer toe 02/08/2021 Pain in right foot 02/07/2021 Acute recurrent pancreatitis 06/11/2020 Arthritis of both knees 03/06/2020 Abdominal bloating 10/04/2019 Gastroesophageal reflux disease 10/04/2019 Edema 11/10/2018 Hematochezia 05/04/2018 Abdominal pain, generalized 04/27/[address] of the abdomen 04/27/2018 Internal hernia 04/27/2018 Nausea and vomiting 04/27/2018 Iron deficiency anemia 08/06/2017 Asthma 03/16/2017 Abdominal pain, LUQ (left upper quadrant) 2015 Morbid obesity 09/26/2015 Localized adiposity 09/26/2015 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 Degeneration of lumbar or lumbosacral interverte bral disc 03/18/2011 Diabetes mellitus 10/26/2009 Polycystic ovarian syndrome 01/27/2008 Social History Tobacco Use Types Packs/Day Years Used Date Smoking Tobacco: Never Smokeless Tobacco: Never Tobacco Cessation:Counseling Given: Not Answered AUDIT-C Answer Date Recorded Frequency of Alcohol [...] on file Legal Sex Female 1:45 AM CONTRACTS ADMINISTRATOR Gender Identity Not on file Sexual Orientation Not on file Last Filed Vital Signs Vital Sign Reading Time Taken Comments Blood Pressure 111/62 05/17/2024 7:35 AM CONTRACTS ADMINISTRATOR Pulse 88 05/17/2024 8:20 AM CONTRACTS ADMINISTRATOR Temperature 36.7 C (98 F) 05/17/2024 7:35 AM CONTRACTS ADMINISTRATOR Respiratory Rate 18 05/17/2024 7:35 AM CONTRACTS ADMINISTRATOR Oxygen Saturation 98% 05/17/2024 7:35 AM CONTRACTS ADMINISTRATOR Inhaled Oxygen Concentration - - Weight 72 kg (158 lb 11.7 oz) 05/17/2024 6:13 AM CONTRACTS ADMINISTRATOR Height 167.6 cm (5' 6 ) 05/17/2024 6:13 AM CONTRACTS ADMINISTRATOR Body Mass Index 25.62 05/17/2024 6:13 AM CONTRACTS ADMINISTRATOR Plan of Treatment Not on file Medical Devices Implanted Type Area Auto Travel Counselor Device Identifier Shelf Expiration Date Model / Serial / Lot [employer] Silvia Sealant Fibrin Patch Kemmerer Set Frozen Prefilled Syringe Artiss 10ml [id number] - [id number] - [id number] Implanted:Qty: 1 on 05/12/2024 by Russell Louie MD at [facility] N/A: Abdomen [facility] Silvia 07/29/2025 [id number] / [id number] / [id number] Procedures Procedure Name Priority Date/Time Associated Diagnosis Comments US VEIN DUPLEX UPPER EXTREMITY BILATERAL COMPLETE Schedule Routine, Read Routine (OP Routine) 05/31/2024 10:26 AM CONTRACTS ADMINISTRATOR Loose skin Edema of extremity of unknown cause US VEIN DUPLEX LOWER EXTREMITY BILATERAL COMPLETE Schedule Routine, Read Routine (OP Routine) 05/30/2024 2:20 PM CONTRACTS ADMINISTRATOR Loose skin Edema of extremities EGFR Routine 05/17/2024 3:23 AM CONTRACTS ADMINISTRATOR DIFFERENTIAL AUTO Routine 05/17/2024 3:2 3 AM CONTRACTS ADMINISTRATOR COMPREHENSIVE METABOLIC PANEL Routine 05/17/2024 3:23 AM CONTRACTS ADMINISTRATOR CBC WITH AUTO DIFFERENTIAL Routine 05/17/2024 3:23 AM CONTRACTS ADMINISTRATOR DIFFERENTIAL AUTO Routine 05/16/2024 2:2 7 AM CONTRACTS ADMINISTRATOR CBC WITH AUTO DIFFERENTIAL Routine 05/16/2024 2:27 AM CONTRACTS ADMINISTRATOR HEMOGLOBIN AND HEMATOCRIT Routine 05/15/2024 4:38 PM CONTRACTS ADMINISTRATOR TRANSFUSE RED BLOOD CELLS Timed 05/15/2024 9:44 AM CONTRACTS ADMINISTRATOR PREPARE RBC Timed 05/15/2024 6:52 AM CONTRACTS ADMINISTRATOR DIFFERENTIAL AUTO Routine 05/15/2024 3:0 7 AM CONTRACTS ADMINISTRATOR CBC WITH AUTO DIFFERENTIAL Routine 05/15/2024 3:07 AM CONTRACTS ADMINISTRATOR HEMOGLOBIN AND HEMATOCRIT Routine 05/14/2024 1:34 PM CONTRACTS ADMINISTRATOR HEPATITIS PANEL, ACUTE Timed 05/14/2024 1:34 PM CONTRACTS ADMINISTRATOR TRANSFUSE RED BLOOD CELLS Timed 05/14/2024 9:18 AM CONTRACTS ADMINISTRATOR PREPARE RBC Timed 05/14/2024 8:22 AM CONTRACTS ADMINISTRATOR CROSSMATCH Timed 05/14/2024 6:01 AM CONTRACTS ADMINISTRATOR ANTIBODY SCREEN Timed 05/14/2024 6:01 AM CONTRACTS ADMINISTRATOR ABO/RH Timed 05/14/2024 6:01 AM CONTRACTS ADMINISTRATOR TYPE AND SCREEN Timed 05/14/2024 6:01 AM CONTRACTS ADMINISTRATOR EGFR Routine 05/14/2024 2:46 AM CONTRACTS ADMINISTRATOR DIFFERENTIAL AUTO Routine 05/14/2024 2:4 6 AM CONTRACTS ADMINISTRATOR COMPREHENSIVE METABOLIC PANEL Routine 05/14/2024 2:46 AM CONTRACTS ADMINISTRATOR CBC WITH AUTO DIFFERENTIAL Routine 05/14/2024 2:46 AM CONTRACTS ADMINISTRATOR FOLATE Routine 05/14/2024 2:46 AM CONTRACTS ADMINISTRATOR VITAMIN B12 Routine 05/14/2024 2:46 AM CONTRACTS ADMINISTRATOR IRON PROFILE W/ IBC Routine 05/14/2024 2 :46 AM CONTRACTS ADMINISTRATOR B ABO / RH CONFIRMATION TESTING STAT 05/14/2024 2:41 AM CONTRACTS ADMINISTRATOR CALCIUM,IONIZED, WHOLE BLOOD Add-On 05/13/2024 6:59 PM CONTRACTS ADMINISTRATOR HEPATIC FUNCTION PANEL Routine 05/13/2024 1:31 PM CONTRACTS ADMINISTRATOR MANUAL DIFFERENTIAL Routine 05/13/2024 1 :31 PM CONTRACTS ADMINISTRATOR EGFR Routine 05/13/2024 1:31 PM CONTRACTS ADMINISTRATOR MAGNESIUM Add-On 05/13/2024 1:31 PM CONTRACTS ADMINISTRATOR COMPREHENSIVE METABOLIC PANEL Routine 05/13/2024 1:31 PM CONTRACTS ADMINISTRATOR CBC WITH AUTO DIFFERENTIAL Routine 05/13/2024 1:31 PM CONTRACTS ADMINISTRATOR SURGICAL PATHOLOGY Routine 05/12/2024 2: 30 PM CONTRACTS ADMINISTRATOR FL AN ELECTIVE ENDOTRACHEAL AIRWAY Routine 05/12/2024 8:45 AM CONTRACTS ADMINISTRATOR PANNICULECTOMY 05/12/2024 8:26 AM CONTRACTS ADMINISTRATOR Excess skin Special Needs GENERAL, TAP, 1% LIDO WITH EPI, NILESH, 19 MALTESE CURTIS DRAIN x2, BINDER ANESTHESIA PERIPHERAL BLOCK Routine 05/12/2024 8:15 AM CONTRACTS ADMINISTRATOR LIPID PANEL Routine 07/30/2023 8:51 AM CONTRACTS ADMINISTRATOR ALBUMIN CREATININE RATIO, URINE Routine 07/30/2023 8:51 AM CONTRACTS ADMINISTRATOR from Last 3 Months or Most Recently Relevant to Health Maintenance Results * US Vein Duplex Upper Extremity Bilateral Complete (05/31/2024 10:26 AM CONTRACTS ADMINISTRATOR) Anatomical Region Laterality Modality Vascular Bilateral Ultrasound 05/31/2024 10:3 4 AM CONTRACTS ADMINISTRATOR Narrative 05/31/2024 10:44 AM CONTRACTS ADMINISTRATOR EXAM DESCRIPTION: US VEIN DUPLEX UPPER EXTREMITY BILATERAL COMPLETE HISTORY: History of recent surgery with bilateral upper extremity edema for 10 days that is improving. TECHNIQUE: Axial and longitudinal grayscale and color and pulsed wave Doppler imaging of the upper extremity bilaterally was performed utilizing real-time ultrasonography. COMPARISON: None available FINDINGS: The bilateral upper extremity the deep venous system from the jugular vein through the antecubital fossa demonstrates color Doppler flow and wave forms with compressibility and augmentation where applicable. IMPRESSION: No evidence of deep venous thrombosis in the bilateral upper extremity. THIS IS AN ELECTRONICALLY VERIFIED FINAL REPORT 05/31/2024 10:44 AM - Electronically signed by Milo Blandon M.D. AG: CANDELARIO Report ID: [id number] Reading Location: [id number] Procedure Note Milo Blandon MD - 05/31/2024 EXAM DESCRIPTION: US VEIN DUPLEX UPPER EXTREMITY BILATERAL COMPLETE HISTORY: History of recent surgery with bilateral upper extremity edemafor 10 days that is improving. TECHNIQUE: Axial and longitudinal grayscale and color and pulsed waveDoppler imaging of the upper extremity bilaterally was performed utilizingreal-time ultrasonography. COMPARISON: None available FINDINGS: The bilateral upper extremity the deep venous system from the jugular vein through the antecubital fossa demonstrates color Doppler flow and waveforms with compressibility and augmentation where applicable. IMPRESSION: No evidence of deep venous thrombosis in the bilateral upper extremity. THIS IS AN ELECTRONICALLY VERIFIED FINAL REPORT 05/31/2024 10:44 AM - Electronically signed by Milo Blandon M.D. AG: CANDELARIO Report ID: [id number] Reading Location: [id number] us Russell Louie MD IMG US PROCEDURES Fi nal Result * US Vein Duplex Lower Extremity Bilateral Complete (05/30/2024 2:20 PM CONTRACTS ADMINISTRATOR) Anatomical Region Laterality Modality Vascular Bilateral Ultrasound 05/31/2024 10:2 7 AM CONTRACTS ADMINISTRATOR Narrative 05/31/2024 10:34 AM CONTRACTS ADMINISTRATOR EXAM DESCRIPTION: US VEIN DUPLEX LOWER EXTREMITY BILATERAL COMPLETE REASON FOR STUDY: Bilateral lower extremity swelling for 1 week. Provided history of recent panniculectomy on 05/12/2024 TECHNIQUE: Duplex scan using the B-mode, spectral Doppler, and color-flow Doppler of the deep venous system of the bilateral lower extremities was performed. Images stored on PACS. COMPARISON: None available FINDINGS: The bilateral common femoral, superficial femoral, and popliteal veins are compressible with no evidence of intraluminal thrombus on lopez scale images. There is color and spectral Doppler signal including augmentation. Visualized calf veins are patent. The greater saphenous vein is patent. IMPRESSION: No evidence of lower extremity deep venous thrombosis. THIS IS AN ELECTRONICALLY VERIFIED FINAL REPORT 05/31/2024 10:34 AM - Electronically signed by Milo Blandon M.D. AG: CANDELARIO Report ID: [id number] Reading Location: [id number] Procedure Note Milo Blandon MD - 05/31/2024 EXAM DESCRIPTION: US VEIN DUPLEX LOWER EXTREMITY BILATERAL COMPLETE REASON FOR STUDY: Bilateral lower extremity swelling for 1 week.Provided history of recent panniculectomy on 05/12/2024 TECHNIQUE: Duplex scan using the B-mode, spectral Doppler, and color-flow Doppler of the deep venous system of the bilateral lower extremities was performed. Images stored on PACS. COMPARISON: None available FINDINGS: The bilateral common femoral, superficial femoral, and popliteal veins are compressible with no evidence of intraluminal thrombus on lopez scaleimages. There is color and spectral Doppler signal including augmentation.Visualized calf veins are patent. The greater saphenous vein is patent. IMPRESSION: No evidence of lower extremity deep venous thrombosis. THIS IS AN ELECTRONICALLY VERIFIED FINAL REPORT 05/31/2024 10:34 AM - Electronically signed by Milo Blandon M.D. AG: AG Report ID: [id number] Reading Location: [place] [address] us Russell Louie MD IMG US PROCEDURES Fi nal Result * eGFR (05/17/2024 3:23 AM CONTRACTS ADMINISTRATOR) eGFR >90 >=60 mL/min/1. 73 m2 Comment: Interpretive Data Reference Interval Normal >/= 90 mL/min/1.73m2 Mildly decreased* 60 - 89 mL/min/1.73m2 Mildly to moderately decreased 45 - 59 mL/min/1.73m2 Moderately to severely decreased 30 - 44 mL/min/1.73m2 Severely decreased 15 - 29 mL/min/1.73m2 Kidney Failure < 15 mL/min/1.73m2 *Relative to young adult level Estimated glomerular filtration rate is determined by the 2020 CKD-EPI equation recommended by the National Kidney Foundation (A Unifying Approach to GFR Estimation: Recommendations of the NKF-ASK Task Force on Reassessing the Inclusion of Race in Diagnosing Kidney Disease, JASN 2020). The CKD-EPI equation should not be used for patients with unstable renal function and has not been validated in children and those over 70. Current interpretive data was last reviewed 2021. Blood 05/17/2024 3:23 AM CONTRACTS ADMINISTRATOR 05/17/2024 4:05 AM CONTRACTS ADMINISTRATOR us Lolita Colon MD LAB BLOOD ORDERABLES Final Res ult [facility]) 2 [employer] [facility] Department [place] [address] * Differential, auto (05/17/2024 3:23 AM CONTRACTS ADMINISTRATOR) Neutrophil abs 2.7 1.5 - 6.5 K/cumm Imm gran abs 0.0 0.0 - 0.1 K/cumm [facility] ([facility]) Lymphocyte abs 2.2 0.8 - 3.3 K/cumm [facility] ([facility]) Monocyte abs 0.6 0.2 - 0.8 K/cumm [facility] ([facility]) Eosinophil abs 0.2 0.0 - 0.5 K/cumm [facility] ([facility]) Basophil abs 0.0 0.0 - 0.1 K/cumm [facility] ([facility]) Neutrophil pct 46.3 % [facility] ([facility]) Comment: Interpretive Data Percent cell count reference ranges are not reported, since discordance with absolute values may lead to misinterpretation of CBC data. Current Interpretive Data was last revised on 2017. Imm gran pct 0.2 % [facility] ([facility]) Comment: Interpretive Data Percent cell count reference ranges are not reported, since discordance with absolute values may lead to misinterpretation of CBC data. Current Interpretive Data was last revised on 2017. Lymphocyte pct 38.3 % [facility] ([facility]) Comment: Interpretive Data Percent cell count reference ranges are not reported, since discordance with absolute values may lead to misinterpretation of CBC data. Current Interpretive Data was last revised on 2017. Monocyte pct 10.7 % [facility] ([facility]) Comment: Interpretive Data Percent cell count reference ranges are not reported, since discordance with absolute values may lead to misinterpretation of CBC data. Current Interpretive Data was last revised on 2017. Eosinophil pct 4.0 % [facility] ([facility]) Comment: Interpretive Data Percent cell count reference ranges are not reported, since discordance with absolute values may lead to misinterpretation of CBC data. Current Interpretive Data was last revised on 2017. Basophil pct 0.5 % [facility] ([facility]) Comment: Interpretive Data Percent cell count reference ranges are not reported, since discordance with absolute values may lead to misinterpretation of CBC data. Current Interpretive Data was last revised on 2017. Blood 05/17/2024 3:23 AM CONTRACTS ADMINISTRATOR 05/17/2024 4:05 AM CONTRACTS ADMINISTRATOR Lolita Colon MD LAB BLOOD ORDERABLES Final Res ult [facility] ([facility]) 1 [facility] Department [place] [address] * (ABNORMAL) CBC with auto differential (05/17/2024 3:23 AM CONTRACTS ADMINISTRATOR) WBC 5.8 3.8 - 9.9 K/cumm Hgb 7.9(L) 11.9 - 15.5 g/dL [facility] ([facility]) Hct 24.9(L) 35.6 - 45.5 % [facility] ([facility]) Plt 180 150 - 400 K/cumm [facility] ([facility]) MPV 12.4(H) 9.1 - 12.3 fL [facility] ([facility]) RBC 2.65(L) 3.90 - 5.20 M/cumm [facility] ([facility]) MCV 94.0 81.3 - 96.4 fL [facility] ([facility]) MCH 29.8 27.1 - 33.3 pg [facility] ([facility]) MCHC 31.7(L) 32.3 - 35.7 g/dL [facility] ([facility]) RDW CV 14.9 11.1 - 14.9 % [facility] ([facility]) RDW SD 50.7(H) 35.7 - 48.1 fL [facility] ([facility]) NRBC abs 0.00 0.00 - 0.01 K/cumm [facility] ([facility]) Blood 05/17/2024 3:23 AM CONTRACTS ADMINISTRATOR 05/17/2024 4:05 AM CONTRACTS ADMINISTRATOR Lolita Colon MD LAB BLOOD ORDERABLES Final Res ult [facility] ([facility]) 1 [facility] [place] [address] * (ABNORMAL) Comprehensive metabolic panel (05/17/2024 3:23 AM CONTRACTS ADMINISTRATOR) Pathologist [facility] Sodium 139 135 - 145 mmol/L Potassium, pl 4.4 3.3 - 4.9 mmol/L [facility] ([facility]) Chloride 104 97 - 110 mmol/L [facility] ([facility]) CO2 29 22 - 32 mmol/L [facility] ([facility]) Anion gap 6 2 - 15 mmol/L [facility] ([facility]) BUN 15 6 - 25 mg/dL [facility] ([facility]) Creatinine 0.63 0.60 - 1.10 mg/dL [facility] ([facility]) Glucose 85 70 - 199 mg/dL [facility] ([facility]) Comment: Interpretive Data Fasting glucose >/= 126 mg/dl is diagnostic for diabetes. Fasting is defined as no caloric intake for at least 8 hours. Fasting glucose between 100 mg/dl to 125 mg/dl is diagnostic of prediabetes. In a patient with classic symptoms of hyperglycemia or hyperglycemic crisis, a random glucose >/= 200 mg/dl is diagnostic for diabetes. In the absence of unequivocal hyperglycemia, results should be confirmed by repeat testing. The classification and Diagnosis of Diabetes Diabetes Care 2021; 46: S19-S40. Current interpretive data was last revised 2022. Calcium 8.0(L) 8.5 - 10.3 mg/dL [facility] ([facility]) Bilirubin, total 0.7 0.1 - 1.2 mg/dL [facility] ([facility]) Protein, pl 4.7(L) 6.5 - 8.5 g/dL [facility] ([facility]) Albumin 2.8(L) 3.5 - 5.0 g/dL [facility] ([facility]) Alk phos 85 40 - 130 Units/L [facility] ([facility]) ALT 37 7 - 45 Units/L [facility] ([facility]) AST 20 10 - 45 Units/L [facility] ([facility]) Blood 05/17/2024 3:23 AM CONTRACTS ADMINISTRATOR 05/17/2024 4:05 AM CONTRACTS ADMINISTRATOR us Lolita Colon MD LAB BLOOD ORDERABLES Final Res ult [facility] ([facility]) 1 [facility] Department [place] [address] * Differential, auto (05/16/2024 2:27 AM CONTRACTS ADMINISTRATOR) Neutrophil abs 2.8 1.5 - 6.5 K/cumm Imm gran abs 0.0 0.0 - 0.1 K/cumm [facility] ([facility]) Lymphocyte abs 2.8 0.8 - 3.3 K/cumm [facility] ([facility]) Monocyte abs 0.4 0.2 - 0.8 K/cumm [facility] ([facility]) Eosinophil abs 0.3 0.0 - 0.5 K/cumm [facility] ([facility]) Basophil abs 0.0 0.0 - 0.1 K/cumm [facility] ([facility]) Neutrophil pct 44.0 % [facility] ([facility]) Comment: Interpretive Data Percent cell count reference ranges are not reported, since discordance with absolute values may lead to misinterpretation of CBC data. Current Interpretive Data was last revised on 2017. Imm gran pct 0.3 % [facility] ([facility]) Comment: Interpretive Data Percent cell count reference ranges are not reported, since discordance with absolute values may lead to misinterpretation of CBC data. Current Interpretive Data was last revised on 2017. Lymphocyte pct 44.1 % [facility] ([facility]) Comment: Interpretive Data Percent cell count reference ranges are not reported, since discordance with absolute values may lead to misinterpretation of CBC data. Current Interpretive Data was last revised on 2017. Monocyte pct 6.5 % [facility] [facility] ([facility]) Comment: Interpretive Data Percent cell count reference ranges are not reported, since discordance with absolute values may lead to misinterpretation of CBC data. Current Interpretive Data was last revised on 2017. Eosinophil pct 4.5 % [facility] R [facility] ([facility]HZAD) Comment: Interpretive Data Percent cell count reference ranges are not reported, since discordance with absolute values may lead to misinterpretation of CBC data. Current Interpretive Data was last revised on 2017. Basophil pct 0.6 % [facility] ([place]) Comment: Interpretive Data Percent cell count reference ranges are not reported, since discordance with absolute values may lead to misinterpretation of CBC data. Current Interpretive Data was last revised on 2017. Blood 05/16/2024 2:27 AM CONTRACTS ADMINISTRATOR 05/16/2024 3:34 AM CONTRACTS ADMINISTRATOR Lolita Colon MD LAB BLOOD ORDERABLES Final Res ult [facility]ICK [facility] ([place]HZAD) 1 [facility] Department [place] [address] * (ABNORMAL) CBC with auto differential (05/16/2024 2:27 AM CONTRACTS ADMINISTRATOR) WBC 6.3 3.8 - 9.9 K/cumm Hgb 8.0(L) 11.9 - 15.5 g/dL [facility] ([place]) Hct 24.8(L) 35.6 - 45.5 % [facility] ([place]) Plt 146(L) 150 - 400 K/cumm [facility] ([place]) MPV 13.2(H) 9.1 - 12.3 fL [facility] ([place]) RBC 2.67(L) 3.90 - 5.20 M/cumm [facility] ([place]) MCV 92.9 81.3 - 96.4 fL [facility] ([place]) MCH 30.0 27.1 - 33.3 pg [facility] ([place]) MCHC 32.3 32.3 - 35.7 g/dL [facility] ([place]) RDW CV 15.9(H) 11.1 - 14.9 % [facility] ([place]) RDW SD 54.2(H) 35.7 - 48.1 fL [facility] ([place]) NRBC abs 0.00 0.00 - 0.01 K/cumm [facility] ([place]) Blood 05/16/2024 2:27 AM CONTRACTS ADMINISTRATOR 05/16/2024 3:34 AM CONTRACTS ADMINISTRATOR Lolita Colon MD LAB BLOOD ORDERABLES Final Res ult ERICK [facility] (BEHZAD) 1 [facility] [place] [address] * (ABNORMAL) Hemoglobin and hematocrit (05/15/2024 4:38 PM CONTRACTS ADMINISTRATOR) Hgb 8.7(L) 11.9 - 15.5 g/dL Hct 27.4(L) 35.6 - 45.5 % [facility] ([place]HZAD) Blood 05/15/2024 4:38 PM CONTRACTS ADMINISTRATOR 05/15/2024 5:01 PM CONTRACTS ADMINISTRATOR us Lolita Colon MD LAB BLOOD ORDERABLES Final Res ult [facility]ICK [facility] (BEHZAD) 1 [facility] [place] [address] * Transfuse RBC (05/15/2024 1:44 PM CONTRACTS ADMINISTRATOR) Blood us Alexandrea Turner MD BLOOD TRANSFUSION ORDERABLES Final Result Performing Organization Address [facility] de Phone Number ERICK [facility] (BEHZAD) [address] [place] [address] [place] [address] * Prepare RBC: 1 Units (05/15/2024 6:52 AM CONTRACTS ADMINISTRATOR) Units requested 1 Units requested Ready [facility]ICK [facility] (BEHZAD) Unit Number [id number] Product code [id number] [facility] ([facility]HZAD) Blood Expiration Date [id number] [facility] ([facility]HZAD) Product Blood Type (for scanning) 1700 [facility] ([place]AD) Product Blood Type BNEG [facility] ([place]HZAD) Dispense Status DISPENSED [facility]ICK [facility] (BEHZAD) Blood 05/15/2024 6:52 AM CONTRACTS ADMINISTRATOR 05/15/2024 6:52 AM CONTRACTS ADMINISTRATOR us Alexandrea Turner MD BLOOD BANK PRODUCT ORDERABLES Final Result Performing Organization Address [facility] Co de Phone Number ERICK [facility] (BEHZAD) 1 [facility] [place] [address] * Differential, auto (05/15/2024 3:07 AM CONTRACTS ADMINISTRATOR) Neutrophil abs 3.8 1.5 - 6.5 K/cumm Imm gran abs 0.0 0.0 - 0.1 K/cumm [facility] ([place]Z[facility]) Lymphocyte abs 2.7 0.8 - 3.3 K/cumm [facility] ([place]) Monocyte abs 0.7 0.2 - 0.8 K/cumm [facility] ([place]) Eosinophil abs 0.2 0.0 - 0.5 K/cumm [facility] ([place]Z[facility]) Basophil abs 0.0 0.0 - 0.1 K/cumm [facility] ([place]HZAD) Neutrophil pct 51.1 % [facility] (BEHZAD) Comment: Interpretive Data Percent cell count reference ranges are not reported, since discordance with absolute values may lead to misinterpretation of CBC data. Current Interpretive Data was last revised on 2017. Imm gran pct 0.3 % [facility] (BEHZAD) Comment: Interpretive Data Percent cell count reference ranges are not reported, since discordance with absolute values may lead to misinterpretation of CBC data. Current Interpretive Data was last revised on 2017. Lymphocyte pct 35.9 % [facility] (BEHZAD) Comment: Interpretive Data Percent cell count reference ranges are not reported, since discordance with absolute values may lead to misinterpretation of CBC data. Current Interpretive Data was last revised on 2017. Monocyte pct 9.5 % [facility] (BEHZAD) Comment: Interpretive Data Percent cell count reference ranges are not reported, since discordance with absolute values may lead to misinterpretation of CBC data. Current Interpretive Data was last revised on 2017. Eosinophil pct 2.8 % [facility] (BEHZAD) Comment: Interpretive Data Percent cell count reference ranges are not reported, since discordance with absolute values may lead to misinterpretation of CBC data. Current Interpretive Data was last revised on 2017. Basophil pct 0.4 % [facility] (BEHZAD) Comment: Interpretive Data Percent cell count reference ranges are not reported, since discordance with absolute values may lead to misinterpretation of CBC data. Current Interpretive Data was last revised on 2017. Blood 05/15/2024 3:07 AM CONTRACTS ADMINISTRATOR 05/15/2024 4:12 AM CONTRACTS ADMINISTRATOR us Lolita Colon MD LAB BLOOD ORDERABLES Final Res ult ERICK [facility] ([facility]HZAD) 1 [facility] [place] [address] * (ABNORMAL) CBC with auto differential (05/15/2024 3:07 AM CONTRACTS ADMINISTRATOR) Pathologist [facility] WBC 7.4 3.8 - 9.9 K/cumm Hgb 6.5(L) 11.9 - 15.5 g/dL [facility] ([place]HZAD) Hct 21.2(L) 35.6 - 45.5 % [facility] ([place]HZAD) Plt 133(L) 150 - 400 K/cumm [facility] ([place]HZAD) MPV 13.6(H) 9.1 - 12.3 fL [facility] (BEHZAD) RBC 2.18(L) 3.90 - 5.20 M/cumm [facility] ([place]HZAD) MCV 97.2(H) 81.3 - 96.4 fL [facility] ([place]HZAD) MCH 29.8 27.1 - 33.3 pg [facility] ([place]HZAD) MCHC 30.7(L) 32.3 - 35.7 g/dL [facility] ([place]HZAD) RDW CV 15.7(H) 11.1 - 14.9 % [facility] ([place]HZAD) RDW SD 56.1(H) 35.7 - 48.1 fL [facility] ([place]HZAD) NRBC abs 0.00 0.00 - 0.01 K/cumm [facility] ([facility]HZAD) Blood 05/15/2024 3:07 AM CONTRACTS ADMINISTRATOR 05/15/2024 4:12 AM CONTRACTS ADMINISTRATOR us Lolita Colon MD LAB BLOOD ORDERABLES Final Res ult ERICK [facility] (BEHZAD) 1 [facility] [place] [address] * (ABNORMAL) Hemoglobin and hematocrit (05/14/2024 1:34 PM CONTRACTS ADMINISTRATOR) [facility] Hgb 6.6(L) 11.9 - 15.5 g/dL Hct 21.4(L) 35.6 - 45.5 % ERICK [facility] (BEHZAD) Blood 05/14/2024 1:34 PM CONTRACTS ADMINISTRATOR 05/14/2024 1:51 PM CONTRACTS ADMINISTRATOR us Loltia Colon MD LAB BLOOD ORDERABLES Final Res ult ERICK [facility] (BEHZAD) 1 [facility] Department [place] [address] * Hepatitis panel, acute Blood (05/14/2024 1:34 PM CONTRACTS ADMINISTRATOR) Hep A IgM Nonreactive Nonreactive Comment: Interpretive Data: If Hep A IgM Ab is reported as Equivocal, a new sample should be drawn in two weeks for testing. Current interpretive data was last revised on 19. Testing performed by: [address] [address] Hep B core IgM Nonreactive Nonreactive C BAIRON [facility] (BEHZAD) Comment: Interpretive Data If HepB Core IgM Ab is reported as Equivocal, a new sample should be drawn in two weeks for testing. Current interpretive data was last revised on 19. Testing performed by: [facility], [address] [place] [address]., [id number] Hep C Ab Nonreactive Nonreactive [facility]ICK [facility] (BEHZAD) Comment: Interpretive Data Nonreactive: Antibodies to HCV not detected. Does NOT exclude the possibility of recent exposure to HCV. Equivocal: Equivocal for HCV antibodies. Supplemental molecular testing will be automatically performed to determine infection status in accordance with current CDC screening recommendations. Reactive: Positive for HCV antibodies. This may represent current or past HCV infection. Supplemental molecular testing will be automatically performed to determine current infection status in accordance with current CDC screening recommendations. Interpretive data was last revised on 2019. Testing performed by: [facility], [address] [place] [address]., [id number] HepBsAg Nonreactive Nonreactive [facility]ICK [facility] (BEHZAD) Comment:Testing performed by : [address] [address] Blood 05/14/2024 1:34 PM CONTRACTS ADMINISTRATOR 05/15/2024 9:46 AM CONTRACTS ADMINISTRATOR us Lolita Colon MD LAB MICROBIOLOGY - GENERAL ORD ERABLES Final Result ERICK [facility] (BEHZAD) 1 [facility] Department [place] [address] * Transfuse RBC (05/14/2024 12:45 PM CONTRACTS ADMINISTRATOR) Blood us Alexandrea uTrner MD BLOOD TRANSFUSION ORDERABLES Final Result Performing Organization Address City/[facility]/ZIP Co de Phone Number ERICK [facility] (BEHZAD) 1 [facility] [place] [address] * Prepare RBC: 1 Units (05/14/2024 8:22 AM CONTRACTS ADMINISTRATOR) Units requested 1 Units requested Ready SERASUSAN [facility]ANCE (BEHZAD) Unit Number [id number] Product code [id number] [facility] (BEHZAD) Blood Expiration Date [facility] (BEHZAD) Product Blood Type (for scanning) 7300 [facility] (BEHZAD) Product Blood Type BPOS CERS[facility]AN [facility] (BEHZAD) Dispense Status DISPENSED [facility] (BEHZAD) Blood 05/14/2024 8:22 AM CONTRACTS ADMINISTRATOR 05/14/2024 8:21 AM CONTRACTS ADMINISTRATOR us Alexandrea Turner MD BLOOD BANK PRODUCT ORDERABLES Final Result ERICK [facility] (BEHZAD) 1 [facility] Department [place] [address] * ABO/Rh (05/14/2024 6:01 AM CONTRACTS ADMINISTRATOR) ABO/Rh B Positive Blood 05/14/2024 6:01 AM CONTRACTS ADMINISTRATOR 05/14/2024 6:10 AM CONTRACTS ADMINISTRATOR Narrative ERICK RAJIV (BEHZAD) - 05/14/2024 7:53 AM CONTRACTS ADMINISTRATOR Has the patient had Daratumumab or Isatuximab in the past 6 months?->Unknown Alexandrea Turner MD LAB BLOOD BANK TEST ORDERABLE S Final Result Performing Organization Address City/[facility]/ZIP Co de Phone Number ERICK [facility] ([place]) 1 [facility] [place] [address] * Crossmatch (05/14/2024 6:01 AM CONTRACTS ADMINISTRATOR) Crossmatch Compatible CERNER A ([place]) Unit number for crossmatch [id number] [facility] Crossmatch Compatible CERNER A ([place]) Unit number for crossmatch [id number] [facility] ([place]) Blood 05/14/2024 6:01 AM CONTRACTS ADMINISTRATOR 05/14/2024 6:10 AM CONTRACTS ADMINISTRATOR Lolita Colon MD LAB BLOOD BANK TEST ORDERABLES Edited Result - Final Performing Organization Address [facility] Co de Phone Number ERICK [facility] ([place]) [address] [facility] [place] [address] * Antibody screen (05/14/2024 6:01 AM CONTRACTS ADMINISTRATOR) Pathologist [facility] [place], indirect, Gel Interpretation Negative ABSC Blood 05/14/2024 6:01 AM CONTRACTS ADMINISTRATOR 05/14/2024 6:10 AM CONTRACTS ADMINISTRATOR Narrative ERICK [facility] ([place]) - 05/14/2024 8:19 AM CONTRACTS ADMINISTRATOR Has the patient had Daratumumab or Isatuximab in the past 6 months?->Unknown Alexandrea Turner MD LAB BLOOD BANK TEST ORDERABLE S Final Result Performing Organization Address City/[facility]/ZIP Co de Phone Number ERICK [facility] ([place]) [address] [facility] [place] [address] * eGFR (05/14/2024 2:46 AM CONTRACTS ADMINISTRATOR) Pathologist [facility] eGFR >90 >=60 mL/min/1. 73 m2 Comment: Interpretive Data Reference Interval Normal >/= 90 mL/min/1.73m2 Mildly decreased* 60 - 89 mL/min/1.73m2 Mildly to moderately decreased 45 - 59 mL/min/1.73m2 Moderately to severely decreased 30 - 44 mL/min/1.73m2 Severely decreased 15 - 29 mL/min/1.73m2 Kidney Failure < 15 mL/min/1.73m2 *Relative to young adult level Estimated glomerular filtration rate is determined by the 2020 CKD-EPI equation recommended by the National Kidney Foundation (A Unifying Approach to GFR Estimation: Recommendations of the NKF-ASK Task Force on Reassessing the Inclusion of Race in Diagnosing Kidney Disease, JASN 2020). The CKD-EPI equation should not be used for patients with unstable renal function and has not been validated in children and those over 70. Current interpretive data was last reviewed 2021. Blood 05/14/2024 2:46 AM CONTRACTS ADMINISTRATOR 05/14/2024 3:21 AM CONTRACTS ADMINISTRATOR us Lolita Colon MD LAB BLOOD ORDERABLES Final Res ult [facility] ([place]) 1 [facility] Department of Laboratories [place], [place] [id number] * Differential, auto (05/14/2024 2:46 AM CONTRACTS ADMINISTRATOR) Neutrophil abs 3.4 1.5 - 6.5 K/cumm Imm gran abs 0.0 0.0 - 0.1 K/cumm [facility] (BEHZAD) Lymphocyte abs 3.1 0.8 - 3.3 K/cumm [facility] (BEHZAD) Monocyte abs 0.8 0.2 - 0.8 K/cumm [facility] (BEHZAD) Eosinophil abs 0.1 0.0 - 0.5 K/cumm [facility] (BEHZAD) Basophil abs 0.1 0.0 - 0.1 K/cumm [facility] (BEHZAD) Neutrophil pct 45.4 % [facility] R [facility] (BEHZAD) Comment: Interpretive Data Percent cell count reference ranges are not reported, since discordance with absolute values may lead to misinterpretation of CBC data. Current Interpretive Data was last revised on 2017. Imm gran pct 0.1 % [facility] (BEHZAD) Comment: Interpretive Data Percent cell count reference ranges are not reported, since discordance with absolute values may lead to misinterpretation of CBC data. Current Interpretive Data was last revised on 2017. Lymphocyte pct 41.7 % [facility] (BEHZAD) Comment: Interpretive Data Percent cell count reference ranges are not reported, since discordance with absolute values may lead to misinterpretation of CBC data. Current Interpretive Data was last revised on 2017. Monocyte pct 10.8 % [facility] (BEHZAD) Comment: Interpretive Data Percent cell count reference ranges are not reported, since discordance with absolute values may lead to misinterpretation of CBC data. Current Interpretive Data was last revised on 2017. Eosinophil pct 1.3 % [facility] (BEHZAD) Comment: Interpretive Data Percent cell count reference ranges are not reported, since discordance with absolute values may lead to misinterpretation of CBC data. Current Interpretive Data was last revised on 2017. Basophil pct 0.7 % [facility] (BEHZAD) Comment: Interpretive Data Percent cell count reference ranges are not reported, since discordance with absolute values may lead to misinterpretation of CBC data. Current Interpretive Data was last revised on 2017. Blood 05/14/2024 2:46 AM CONTRACTS ADMINISTRATOR 05/14/2024 3:21 AM CONTRACTS ADMINISTRATOR us Lolita Colon MD LAB BLOOD ORDERABLES Final Res ult ERICK [facility] ([place]) 1 [facility] Department [place] [address] * (ABNORMAL) Iron profile w/ IBC (05/14/2024 2:46 AM CONTRACTS ADMINISTRATOR) Iron 19(L) 35 - 145 mcg/dL TIBC 157(L) 250 - 400 mcg/dL [facility] (BEHZAD) Transferrin saturation 12(L) 20 - 50 % ERICK [facility] (BEHZAD) Blood 05/14/2024 2:46 AM CONTRACTS ADMINISTRATOR 05/14/2024 3:21 AM CONTRACTS ADMINISTRATOR us Lolita Colon MD LAB BLOOD ORDERABLES Final Res ult ERICK [facility] (BEHZAD) 1 [facility] [employer] [place] [address] * (ABNORMAL) CBC with auto differential (05/14/2024 2:46 AM CONTRACTS ADMINISTRATOR) WBC 7.5 3.8 - 9.9 K/cumm Hgb 6.1(C) 11.9 - 15.5 g/dL [facility] (BEHZAD) Comment:Critical result call ed to and read back by KOSTAS AUGUSTE on 05 14 2024 at 0337 to John Nails. Hct 19.8(L) 35.6 - 45.5 % [facility] (BEHZAD) Plt 148(L) 150 - 400 K/cumm [facility] (BEHZAD) MPV 14.0(H) 9.1 - 12.3 fL [facility] ([place]HZAD) RBC 2.02(L) 3.90 - 5.20 M/cumm [facility] ([place]HZAD) MCV 98.0(H) 81.3 - 96.4 fL [facility] ([place]HZAD) MCH 30.2 27.1 - 33.3 pg [facility] ([place]HZAD) MCHC 30.8(L) 32.3 - 35.7 g/dL [facility] (BEHZAD) RDW CV 13.7 11.1 - 14.9 % [facility] (BEHZAD) RDW SD 49.1(H) 35.7 - 48.1 fL [facility] (BEHZAD) NRBC abs 0.00 0.00 - 0.01 K/cumm [facility] (BEHZAD) Blood 05/14/2024 2:46 AM CONTRACTS ADMINISTRATOR 05/14/2024 3:21 AM CONTRACTS ADMINISTRATOR us Lolita Colon MD LAB BLOOD ORDERABLES Final Res ult ERICK [facility] (BEHZAD) 1 [facility] [place] [address] * Folate (05/14/2024 2:46 AM CONTRACTS ADMINISTRATOR) [facility] Folic acid >20.0 >=5.0 ng/mL Comment:Slightly Hemolyzed S pecimen. Results may be affected. Blood 05/14/2024 2:46 AM CONTRACTS ADMINISTRATOR 05/14/2024 3:21 AM CONTRACTS ADMINISTRATOR Lolita Colon MD LAB BLOOD ORDERABLES Final Res ult ERICK [facility] ([place]) [address] [facility] [place] [address] * Vitamin B12 (05/14/2024 2:46 AM CONTRACTS ADMINISTRATOR) [facility] Vitamin B12 720 230 - 1,250 pg/mL Blood 05/14/2024 2:46 AM CONTRACTS ADMINISTRATOR 05/14/2024 3:21 AM CONTRACTS ADMINISTRATOR Lolita Colon MD LAB BLOOD ORDERABLES Final Res ult ERICK [facility] ([place]) [address] [facility] [place] [address] * (ABNORMAL) Comprehensive metabolic panel (05/14/2024 2:46 AM CONTRACTS ADMINISTRATOR) [facility] Sodium 142 135 - 145 mmol/L Potassium, pl 4.4 3.3 - 4.9 mmol/L [facility] (BEHZAD) Chloride 109 97 - 110 mmol/L [facility] (BEHZAD) CO2 28 22 - 32 mmol/L [facility] ([place]HZAD) Anion gap 5 2 - 15 mmol/L [facility] ([place]HZAD) BUN 16 6 - 25 mg/dL [facility] ([place]HZAD) Creatinine 0.58(L) 0.60 - 1.10 mg/dL [facility] ([place]HZAD) Glucose 93 70 - 199 mg/dL [facility] (BEHZAD) Comment: Interpretive Data Fasting glucose >/= 126 mg/dl is diagnostic for diabetes. Fasting is defined as no caloric intake for at least 8 hours. Fasting glucose between 100 mg/dl to 125 mg/dl is diagnostic of prediabetes. In a patient with classic symptoms of hyperglycemia or hyperglycemic crisis, a random glucose >/= 200 mg/dl is diagnostic for diabetes. In the absence of unequivocal hyperglycemia, results should be confirmed by repeat testing. The classification and Diagnosis of Diabetes Diabetes Care 2021; 46: S19-S40. Current interpretive data was last revised 2022. Calcium 7.9(L) 8.5 - 10.3 mg/dL [facility] ([place]AD) Bilirubin, total 0.2 0.1 - 1.2 mg/dL [facility] ([place]) Protein, pl 5.2(L) 6.5 - 8.5 g/dL [facility] ([place]) Albumin 3.4(L) 3.5 - 5.0 g/dL [facility] ([place]HZAD) Alk phos 112 40 - 130 Units/L [facility] ([place]HZAD) ALT 103(H) 7 - 45 Units/L [facility] ([place]HZAD) AST 58(H) 10 - 45 Units/L [facility] ([place]HZAD) Blood 05/14/2024 2:46 AM CONTRACTS ADMINISTRATOR 05/14/2024 3:21 AM CONTRACTS ADMINISTRATOR us Lolita Colon MD LAB BLOOD ORDERABLES Final Res ult Performing Organization Address City/[facility]/ZIP Co de Phone Number SER[facility]ER [facility] (BEHZAD) 1 [facility] [employer] [place] [address] * ABO / Rh Confirmation Testing (05/14/2024 2:41 AM CONTRACTS ADMINISTRATOR) ABO/Rh Confirmation B Positive [facility] Blood 05/14/2024 2:41 AM CONTRACTS ADMINISTRATOR 05/14/2024 7:53 AM CONTRACTS ADMINISTRATOR us Alexandrea Turner MD LAB BLOOD ORDERABLES Final Re sult [facility]ICK [facility] (BEHZAD) 1 [facility] [employer] [place] [address] AMH * (ABNORMAL) Calcium, ionized, whole blood (05/13/2024 6:59 PM CONTRACTS ADMINISTRATOR) Ca, ionized, bld 4.19(L) 4.50 - 5.10 mg/dL Blood 05/13/2024 6:59 PM CONTRACTS ADMINISTRATOR 05/13/2024 7:01 PM CONTRACTS ADMINISTRATOR us Lolita Colon MD LAB BLOOD ORDERABLES Final Res ult ERICK [facility] ([place]) [address] [place] [address] [place] [address] * eGFR (05/13/2024 1:31 PM CONTRACTS ADMINISTRATOR) Pathologist [facility] eGFR >90 >=60 mL/min/1. 73 m2 Comment: Interpretive Data Reference Interval Normal >/= 90 mL/min/1.73m2 Mildly decreased* 60 - 89 mL/min/1.73m2 Mildly to moderately decreased 45 - 59 mL/min/1.73m2 Moderately to severely decreased 30 - 44 mL/min/1.73m2 Severely decreased 15 - 29 mL/min/1.73m2 Kidney Failure < 15 mL/min/1.73m2 *Relative to young adult level Estimated glomerular filtration rate is determined by the 2020 CKD-EPI equation recommended by the National Kidney Foundation (A Unifying Approach to GFR Estimation: Recommendations of the NKF-ASK Task Force on Reassessing the Inclusion of Race in Diagnosing Kidney Disease, JASN 2020). The CKD-EPI equation should not be used for patients with unstable renal function and has not been validated in children and those over 70. Current interpretive data was last reviewed 2021. Blood 05/13/2024 1:31 PM CONTRACTS ADMINISTRATOR 05/13/2024 1:36 PM CONTRACTS ADMINISTRATOR us Lolita Colon MD LAB BLOOD ORDERABLES Final Res ult [facility] ([place]HZAD) 1 [facility] [place] [address] * (ABNORMAL) CBC with auto differential (05/13/2024 1:31 PM CONTRACTS ADMINISTRATOR) WBC 9.1 3.8 - 9.9 K/cumm Hgb 7.3(L) 11.9 - 15.5 g/dL [facility] ([place]) Hct 23.5(L) 35.6 - 45.5 % [facility] ([place]) Plt 192 150 - 400 K/cumm [facility] ([place]) MPV 13.3(H) 9.1 - 12.3 fL [facility] ([place]) RBC 2.41(L) 3.90 - 5.20 M/cumm [facility] ([place]) MCV 97.5(H) 81.3 - 96.4 fL [facility] ([place]) MCH 30.3 27.1 - 33.3 pg [facility] ([place]) MCHC 31.1(L) 32.3 - 35.7 g/dL [facility] ([place]) RDW CV 13.7 11.1 - 14.9 % [facility] ([place]) RDW SD 48.9(H) 35.7 - 48.1 fL [facility] ([place]) NRBC abs 0.00 0.00 - 0.01 K/cumm [facility] ([place]) Blood 05/13/2024 1:31 PM CONTRACTS ADMINISTRATOR 05/13/2024 1:36 PM CONTRACTS ADMINISTRATOR us Lolita Colon MD LAB BLOOD ORDERABLES Final Res ult [facility]ICK [facility] ([place]) 1 [facility] Department [place] [address] * (ABNORMAL) Manual Differential (05/13/2024 1:31 PM CONTRACTS ADMINISTRATOR) Pathologist [facility] Differential Manual Cells Counted 100 [facility] ([place]) Neutrophil abs 5.3 1.5 - 6.5 K/cumm [facility] ([place]) Lymphocyte abs 3.5(H) 0.8 - 3.3 K/cumm [facility] ([place]) Monocyte abs 0.2 0.2 - 0.8 K/cumm [facility] ([place]) Eosinophil abs 0.2 0.0 - 0.5 K/cumm [facility] ([place]) Neutrophil pct 58.0 % [facility] ([place]) Comment: Interpretive Data Percent cell count reference ranges are not reported, since discordance with absolute values may lead to misinterpretation of CBC data. Current Interpretive Data was last revised on 2017. Lymphocyte pct 38.0 % [facility] ([place]) Comment: Interpretive Data Percent cell count reference ranges are not reported, since discordance with absolute values may lead to misinterpretation of CBC data. Current Interpretive Data was last revised on 2017. Monocyte pct 2.0 % [facility] ([place]) Comment: Interpretive Data Percent cell count reference ranges are not reported, since discordance with absolute values may lead to misinterpretation of CBC data. Current Interpretive Data was last revised on 2017. Eosinophil pct 2.0 % [facility] ([place]) Comment: Interpretive Data Percent cell count reference ranges are not reported, since discordance with absolute values may lead to misinterpretation of CBC data. Current Interpretive Data was last revised on 2017. RBC morphology Consistent with RBC Indicies [facility] ([place]) Platelet estimate Adequate CE [facility] ([place]AD) Blood 05/13/2024 1:31 PM CONTRACTS ADMINISTRATOR 05/13/2024 1:36 PM CONTRACTS ADMINISTRATOR Lolita Colon MD LAB BLOOD ORDERABLES Final Res ult Performing Organization Address City/[facility]/ZIP Co de Phone Number ERICK [facility] ([place]) 1 [facility] [place] [address] * Magnesium (05/13/2024 1:31 PM CONTRACTS ADMINISTRATOR) Magnesium 2.2 1.4 - 2.5 mg/dL Blood 05/13/2024 1:31 PM CONTRACTS ADMINISTRATOR 05/13/2024 1:36 PM CONTRACTS ADMINISTRATOR Lolita Colon MD LAB BLOOD ORDERABLES Final Res ult ERICK [facility] ([place]) 1 [facility] [employer] [place] [address] * (ABNORMAL) Hepatic function panel (05/13/2024 1:31 PM CONTRACTS ADMINISTRATOR) Bilirubin, total 0.3 0.1 - 1.2 mg/dL Bilirubin, direct 0.1 0.1 - 0.3 mg/dL [facility] (BEHZAD) Protein, pl 5.2(L) 6.5 - 8.5 g/dL [facility] ([facility]) Albumin 3.4(L) 3.5 - 5.0 g/dL [facility] ([facility]) Alk phos 125 40 - 130 Units/L [facility] ([facility]) ALT 165(H) 7 - 45 Units/L [facility] ([facility]) AST 117(H) 10 - 45 Units/L [facility] ([facility]) Blood 05/13/2024 1:31 PM CONTRACTS ADMINISTRATOR 05/13/2024 6:09 PM CONTRACTS ADMINISTRATOR us Lolita Colon MD LAB BLOOD ORDERABLES Final Res ult [facility] ([facility]ZAD) 1 [facility] Department [place] [address] * (ABNORMAL) Comprehensive metabolic panel (05/13/2024 1:31 PM CONTRACTS ADMINISTRATOR) Pathologist [facility] Sodium 138 135 - 145 mmol/L Potassium, pl 4.1 3.3 - 4.9 mmol/L [facility] ([facility]) Chloride 103 97 - 110 mmol/L [facility] ([facility]) CO2 25 22 - 32 mmol/L [facility] ([facility]) Anion gap 10 2 - 15 mmol/L [facility] ([facility]) BUN 16 6 - 25 mg/dL [facility] ([facility]) Creatinine 0.78 0.60 - 1.10 mg/dL [facility] ([facility]) Glucose 107 70 - 199 mg/dL [facility] ([facility]) Comment: Interpretive Data Fasting glucose >/= 126 mg/dl is diagnostic for diabetes. Fasting is defined as no caloric intake for at least 8 hours. Fasting glucose between 100 mg/dl to 125 mg/dl is diagnostic of prediabetes. In a patient with classic symptoms of hyperglycemia or hyperglycemic crisis, a random glucose >/= 200 mg/dl is diagnostic for diabetes. In the absence of unequivocal hyperglycemia, results should be confirmed by repeat testing. The classification and Diagnosis of Diabetes Diabetes Care 2021; 46: S19-S40. Current interpretive data was last revised 2022. Calcium 7.9(L) 8.5 - 10.3 mg/dL [facility] ([facility]) Bilirubin, total 0.3 0.1 - 1.2 mg/dL [facility] ([facility]) Protein, pl 5.3(L) 6.5 - 8.5 g/dL [facility] ([facility]) Albumin 3.5 3.5 - 5.0 g/dL [facility] ([facility]) Alk phos 130 40 - 130 Units/L [facility] ([facility]) ALT 159(H) 7 - 45 Units/L [facility] ([facility]) AST 115(H) 10 - 45 Units/L [facility] ([facility]) Blood 05/13/2024 1:31 PM CONTRACTS ADMINISTRATOR 05/13/2024 1:36 PM CONTRACTS ADMINISTRATOR us Lolita Colon MD LAB BLOOD ORDERABLES Final Res ult [facility] ([place]ILMARK) [address] [place] [address] Department [place] [address] * Surgical pathology (05/12/2024 2:30 PM CONTRACTS ADMINISTRATOR) Skin, plastic repair 05/12/2024 2:30 PM CONTRACTS ADMINISTRATOR 05/12/2024 2:30 PM CONTRACTS ADMINISTRATOR Narrative 05/16/2024 4:09 PM CONTRACTS ADMINISTRATOR EPIC results best viewed via link to PDF [facility] Department of Pathology [address] [place] [id number] Note to Patients: This report may contain a detailed description of human tissue sent by a health care provider to the laboratory for pathologic evaluation. The content of this report is essential for diagnosis and may provide important critical findings. This information may be unfamiliar to patients to review without a medical professional present. It is advised that the patient review this report in the presence of a health care provider who can answer questions and explain the details. Final Report Patient Name: DORY BARNES Address: [address] [place] [address] Gender: F : 1980 (Age: 43) Service: Surgery Location: [facility] Hospital #: [id number] Patient Type: [facility] Taken: 05/12/2024 Received: 05/12/2024 Accessioned: 05/12/2024 Reported: 05/16/2024 Physician(s):Russell Sage M.D. Diagnosis: Pannus, [id number]-wq-[id number] panniculectomy: - Benign skin and fibroadipose tissue. Milo Grullon MD Report Electronically Reviewed and Signed Out By Milo Grullon MD 05/16/2024 16:09:01 Specimen(s) Received: A: Panniculus, abdomen Microscopic Description: Microscopic examination shows benign-appearing skin and fibroadipose tissue. There is no evidence of malignancy. Clinical History: Excess skin. [id number]-nq-pes panniculectomy, possible umbilical sacrificing. Gross Description: Received in a single formalin filled container labeled with DORY Torres . It is a piece of pink-loaiza skin and subcutis measuring 45 x 30 x 15 cm and weighing 2525 g. The umbilicus is absent. The surrounding skin is wrinkled but without lesions. Sectioning shows fibrofatty cut surfaces without lesions. Represented in 3 cassettes. Federica Zamudio R.N., P.A./Forrest Noble M.D. REPORT IMAGES AND SCANNED DOCUMENTS, IF INCLUDED, ONLY VIEWABLE IN PDF VERSION OF REPORT The performance characteristics of some immunohistochemical stains, fluorescence in-situ hybridization tests and immunophenotyping by flow cytometry cited in this report (if any) were determined by the Surgical Pathology Department at [facility] as part of an ongoing ethanol quality leader program and in compliance with federally mandated regulations drawn from the Clinical Laboratory Improvement Act of 1988 (CLIA '88). Some of these tests rely on the use of analyte specific reagents and are subject to specific labeling requirements by the US Food and Drug Administration. Such diagnostic tests may only be performed in a facility that is certified by the Department of Health and Human Services as a high complexity laboratory under CLIA '88. The FDA has determined that such clearance or approval is not necessary. This test is used for clinical purposes. It should not be regarded as investigational or for research. Nevertheless, federal rules concerning the medical use of analyte specific reagents require that the following disclaimer be attached to the report: This test was developed and its performance characteristics determined by the Surgical Pathology Department [facility]. It has not been cleared or approved by the U. S. Food and Drug Administration. Note for decalcified specimens: This assay has not been validated on decalcified tissues. Results should be interpreted with caution given the possibility of false negativity on decalcified specimens us Russell Louie MD LAB PATHOLOGY ORDERA BLES Final Result * FL AN ELECTIVE ENDOTRACHEAL AIRWAY (05/12/2024 8:45 AM CONTRACTS ADMINISTRATOR) Gabriel Valentine CRNA - 05/12/2024 8:45 AM CONTRACTS ADMINISTRATOR Gabriel Guillen CRNA 05/12/2024 8:46 AM Airway Patient location: OR Urgency: elective Indications for airway management: anesthesia Difficult airway: no Staff: Placed by: BASE PLY HAND: Gabriel Guillen CRNA Emergent airway documentation: Risks and benefits discussed: yes Consent obtained: yes Consent given by: patient Airway prep: Preoxygenated: yes Mask difficulty assessment: 0 - not attempted Spontaneous ventilation during airway: absent Sedation level during airway: GA Final airway details: Final airway type: endotracheal airway Tube type: ETT ETT size: 7.0 mm Cuffed: yes Technique used for successful ETT placement: video laryngoscopy Insertion site: oral Blade type: Mildred Video blade type: Soriano Blade size: 3 Cormack-Lehane (direct): grade I - full view of glottis Cormack-Lehane (video): grade I - full view of glottis Cuff inflated with: air ETT to gums: 19 cm Placement verified by: CO2 detection Airway secured with: silk tape Number of attempts: 1 Planned trial extubation: yes us Charisse Juarez Jr., MD ANESTHESIA ORDER BAKARI Final Result * Peripheral Block (05/12/2024 8:15 AM CONTRACTS ADMINISTRATOR) Narrative Efrain James MD - 05/12/2024 8:15 AM CONTRACTS ADMINISTRATOR Efrain James MD 05/12/2024 8:17 AM Peripheral Block Patient location during procedure: block room End time: 05/12/2024 8:16 AM Reason for block: post-op pain management per surgeon request Ultrasound image in chart or stored: yes Block type: single shot Laterality: bilateral Block type: TAP nerve block - subcostal Staff: Placed by: Anesthesiologist: Efrain James MD Procedure prep: Preprocedure checklist: patient identified, procedure contraindications assessed, site marked, procedure consent, surgical consent, IV checked, risks, benefits and alternatives discussed, monitors and equipment checked and timeout performed Patient position: supine Procedure performed while patient: awake Monitoring: ECG, oximetry and blood pressure Prep solution: chlorhexidine/alcohol PPE: provider hat/mask and sterile gloves Peripheral nerve block: Technique: ultrasound guided Needle gauge: 22 G (times 2) Injection assessment: injection made incrementally with constant monitoring, negative aspiration for heme, no paresthesias noted and normal resistance to injection Assessment: Block success: complete Events: patient tolerated procedure well with no complications Efrain James MD ANESTHESIA ORDERABLES Final Result * Albumin Creatinine Ratio, Urine (07/30/2023 8:51 AM CONTRACTS ADMINISTRATOR) Albumin Ur <12.0 mg/L [facility] ([facility]ZAD) Comment: Interpretive Data No reference range established. Current interpretive data was last revised 2018. Testing performed by: [address] [address] Creatinine Ur 75.1 mg/dL [facility] (BEHZAD) Comment: Interpretive Data No reference range established. Current interpretive data was last revised 2018. Testing performed by: [address] [address] Albumin Creatinine Ratio, Ur <16 1 - 29 mg/g [facility] (BEHZAD) Comment:Testing performed by : [address] [address] Urine 07/30/2023 8:51 AM CONTRACTS ADMINISTRATOR 07/30/2023 10:55 AM CONTRACTS ADMINISTRATOR us Rocio Wu DIRECTOR VOLUNTEER SERVICES LAB URINE ORDERABLES Final R esult [facility] ([facility]ZAD) 1 [facility] Department [place] [address] * Lipid panel (07/30/2023 8:51 AM CONTRACTS ADMINISTRATOR) Cholesterol 91 30 - 199 mg/dL [facility] (BEHZAD) Comment: Interpretive Data Ages < or = 19 years Acceptable: <170 mg/dL Borderline high: 170-199 mg/dL High: >or= 200 mg/dL Ages > or = 20 years Desirable: <200 mg/dL Borderline high: 200-239 mg/dL High: >or= 240 mg/dL Literature References: 1. Expert Panel on Integrated Guidelines for Cardiovascular Health and Risk Reduction in Children and Adolescents. Pediatrics 2011;128:S213 2. NCEP Expert Panel. Circulation 2004;110:227 Current Interpretive Data was last revised on 2018. Triglycerides 42 <=149 mg/dL [facility] (BEHZAD) Comment: Interpretive Data Ages < or = 9 years Acceptable: <75 mg/dL Borderline high: 75-99 mg/dL High: >or= 100 mg/dL Ages 10 to 20 years Acceptable: <90 mg/dL Borderline high: 90-129 mg/dL High: >or= 130 mg/dL Ages > or = 20 years Desirable: <150 mg/dL Borderline high: 150-199 mg/dL High: 200-499 mg/dL Very high: >or= 499 mg/dL Literature References: 1. Expert Panel on Integrated Guidelines for Cardiovascular Health and Risk Reduction in Children and Adolescents. Pediatrics 2011;128:S213 2. NCEP Expert Panel. Circulation 2004;110:227 Current Interpretive Data was last revised on 2018. HDL 45 >=40 mg/dL [facility] (BEHZAD) Comment: Interpretive Data Ages < or = 19 years Acceptable: >45 mg/dL Borderline low: 40-45 mg/dL Low: <40 mg/dL Ages > or = 20 years Desirable: >or= 60 mg/dL Low: <40 mg/dL Literature References: 1. Expert Panel on Integrated Guidelines for Cardiovascular Health and Risk Reduction in Children and Adolescents. Pediatrics 2011;128:S213 2. NCEP Expert Panel. Circulation 2004;110:227 Current Interpretive Data was last revised on 2018. LDL, calculated 38 <=129 mg/dL [facility] (BEHZAD) Comment: Interpretive Data Ages < or = 19 years Acceptable: <110 mg/dL Borderline high: 110-129 mg/dL High: >or= 130 mg/dL Ages > or = 20 years Optimal: <100 mg/dL Near optimal: 100-129 mg/dL Borderline high: 130-159 mg/dL High: >160 mg/dL Literature References: 1. Expert Panel on Integrated Guidelines for Cardiovascular Health and Risk Reduction in Children and Adolescents. Pediatrics 2011;128:S213 2. NCEP Expert Panel. Circulation 2004;110:227 Current Interpretive Data was last revised on 2018. Non-HDL Cholesterol 46 mg/dL [facility] (BEHZAD) Comment: Interpretive Data Ages < or = 19 years Acceptable: <120 mg/dL Borderline high: 120-144 mg/dL High: >145 mg/dL Ages > or = 20 years When triglycerides are >200 mg/dL, Non-HDL cholesterol is a secondary target of therapy with treatment goals that are 30 mg/dL greater than the LDL cholesterol target. Literature References: 1. Expert Panel on Integrated Guidelines for Cardiovascular Health and Risk Reduction in Children and Adolescents. Pediatrics 2011;128:S213 2. NCEP Expert Panel. Circulation 2004;110:227 Current Interpretive Data was last revised on 2018. Chol/HDL ratio 2 [facility] (BEHZAD) Blood 07/30/2023 8:51 AM CONTRACTS ADMINISTRATOR 07/30/2023 10:12 AM CONTRACTS ADMINISTRATOR us Rocio Wu DIRECTOR VOLUNTEER SERVICES LAB BLOOD ORDERABLES Final R esult [facility] ([place]) 1 [facility] Department [place] [address] from Last 3 Months or Most Recently Relevant to Health Maintenance Insurance MEDICARE SOLUTIONS IDPA MEDICARE SOLUTIONS IDPA Care Teams Brooch And Bracelet Maker Relationship Specialty Start Date End Date Henry Ruiz DO PCP - General Internal Medicine 12/09/21 Nicholas Peacock MD [address] [facility] [address] [place] [address] Surgeon Neurosurgery 02/19/22 Lolita Colon MD [address] [place] [address] [place] [address] Consulting Physician Internal Medicine 05/16/24
--- OUTSIDE RECORDS SUMMARY | 2024-08-10 11:56 | XMS_ITS | Encounter Summary ---
Author Organization [facility] Address [address] [place] [address] Care Team Providers Care Pace Analyst Name Role Phone Henry Ruiz DO Primary Care Provider [phone] Encounter Details Date Type Department Care Team (Latest Contact Info) Description 07/19/2021 2:23 PM [facility] Hospital Encounter [address] [address] Katie Tran MD [employer] Social History Tobacco Use Types Packs/Day Years [...] on file Sexual Orientation Not on file COVID-19 Exposure Response Date Recorded In the last 10 days, have yo u been in contact with someone who was confirmed or suspected to have Coronavirus/COVID-19? No / Unsure 11/25/2022 11:59 AM CDT documented as of this encounter Functional Status Functional Status Response Date of Assess ment Is person deaf or have serious hearing difficult y? No 07/05/2021 Is person blind or have serious difficulty seein g? No 07/05/2021 Does person have serious dif ficulty walking/climbing stairs? No 07/05/2021 Does person have difficulty dressing/bathing? No 07/05/2021 Does person have difficulty doing errands alone? No 07/05/2021 Cognitive Status Response Date of Assessm ent Does person have difficulty concentrating/remembering/making decisions? No 07/05/2021 documented as of this encounter Plan of Treatment Upcoming Encounters Date Type Department Care Team (Late st Contact Info) Description 08/30/2024 10:00 AM CORRUGATOR Appointment [facility] SCAN [address] [place] [address] Nicholas Peacock MD [address] [place] [address] 05/04/2025 11:00 AM CORRUGATOR Office Visit [facility] [address] [facility] [address] [place] [address] Blanca Kamara, [facility] PHARMAC[facility] [address] [facility] [address] [place] [address] documented as of this encounter [...] on filedocumented in this encounter Care Teams Pace Analyst Relationship Specialty Start Date End Date Henry Ruiz DO PCP - General Internal Medicine 10/12/15 documented as of this encounter
--- OUTSIDE RECORDS SUMMARY | 2024-08-10 11:56 | XMS_ITS | Clinical Summary ---
Author Organization [facility] Address [address] [place] [address] Phone Care Team Providers Care Nursery Laborer Name Role Phone Henry Ruizian Primary Care Provider Allergies No known active allergies Medications traMADol (ULTRAM) 50 MG TabletIndicatio ns:Right ankle sprain,Right foot sprain, initial encounter Take 1 Tablet by mouth every 8 hours as needed for Moderate or more severe pain. 12 Tablet 02/07/2023 Active Social History Tobacco Use Types Packs/Day Years Used Date Smoking Tobacco: Never Smokeless Tobacco: Never Tobacco Cessation:Counseling Given: Not Answered Alcohol Use Standard Drinks/Week Comments Never 0 (1 standard drink = 0.6 oz pur e alcohol) Comments No Sex and Gender Information Value Date Recorded Sex Assigned at Not on file Legal Sex Female 8:44 PM CDT Gender Identity Not on file Sexual Orientation Not on file Last Filed Vital Signs Vital Sign Reading Time Taken Comments Blood Pressure 135/82 02/07/2023 9:54 PM CDT Pulse 70 02/07/2023 9:54 PM CDT Temperature 37.2 C (98.9 F) 02/07/2023 9:08 PM CDT Respiratory Rate 17 02/07/2023 9:54 PM CDT Oxygen Saturation 100% 02/07/2023 9:54 PM CDT Inhaled Oxygen Concentration - - Weight 96.2 kg (212 lb) 02/07/2023 9:08 PM CDT Height 170.2 cm (5' 7 ) 02/07/2023 9:08 PM CDT Body Mass Index 33.2 02/07/2023 9:08 PM CDT Plan of Treatment Health Maintenance Due Date Last Done Comments Hepatitis C Virus (HCV) Screening 1980 TdaP Immunization 1980 Hepatitis B Immunization (1 of 3 - 19+ 3-dose series) 11/27/1998 Discussion re Starting/Frequ ency of Mammograms 2019 Influenza Immunization (#1) 2024 SARS-COV-2 Immunization ( - 2023- season) 2024 Respiratory Syncytial Virus (RSV) Immunization (Adult) (1 - 1-dose 75+ series) 11/27/2054 Meningococcal Immunization (ACWY) Aged Out No longer eligible based on patient's age to complete this topic Pneumococcal Immunization Combined Aged Out No longer eligible based on patient's age to complete this topic Rotavirus Immunization Aged Out No lo nger eligible based on patient's age to complete this topic Insurance MEDICARE [employer] [facility] [place] Care Teams Nursery Laborer Relationship Specialty Start Date End Date Henry Ruiz DO [facility] [facility] [place] [address] PCP - General Internal Medicine 02/07/23
--- OUTSIDE RECORDS SUMMARY | 2024-08-10 11:56 | XMS_ITS | Patient Health Summary ---
Author Organization [facility] [employer] Address [address] [place] [address] Care Team Providers Care Head Of Physics Name Role Phone Henry Ruiz DO Primary Care Provider [phone] Note from [facility],non-owned Affiliates and Associated Physician Practices is amultiple site organization consisting of ambulatory clinics and hospital sitesin [place], [place], [place] and [place]. This disclosure is being madepursuant to the Care Everywhere program and may not contain all information available regarding this patient. Last updated 18.[facility] Allergies * Morphine(Nausea and/or Vomiting,Headache) * Nsaids(GI Discomfort) -High Criticality Medications * Be aware that medications may not be up to date on this document. Alwaysverify current medications with the patient. * cyclobenzaprine (FLEXERIL) 10 MG tablet Take 1 (one) tablet by mouth every 8 hours as needed 1 refill left * erenumab-aooe (AIMOVIG) 70 MG/ML auto injector pen Inject 1 mL subcutaneously every 30 days * nitroGLYCERIN (NITROSTAT) 0.4 MG tablet(Started 07/19/2021) Dissolve 1 (one) tablet under the tongue every 5 minutes as needed for Angina * Probiotic Product (PROBIOTIC & ACIDOPHILUS EX ST) CAPS(Started 07/19/2021) Take 1 capsule by mouth once daily * atorvastatin (LIPITOR) 40 MG tablet(Started 07/19/2021) Take 1 (one) tablet by mouth at bedtime * hydrOXYzine HCl (ATARAX) 10 MG tablet Take 1 (one) tablet by mouth 2 times daily as needed for Itching * exxfhcidzx-ttubfgcpeadvf-yyenqvln (FIORICET) 50-325-40 MG tablet Take 1 (one) tablet by mouth every 8 hours as needed * linaCLOtide (LINZESS) 145 MCG capsule(Started 11/14/2021) Take 1 (one) capsule by mouth daily before breakfast Take on an empty stomach at least 30 minutes prior to first meal of the day. 3 refills by 11/14/2022 * Cyanocobalamin (VITAMIN B-12 PO) Take 1 tablet by mouth once daily * DULoxetine (Cymbalta) 20 MG capsule(Started 04/09/2022) Take 1 (one) capsule by mouth once daily Take with 60mg capsule to equal 80mg daily * DULoxetine (Cymbalta) 60 MG capsule Take 1 (one) capsule by mouth once daily Take with 20mg capsule to equal 80mg daily * lisinopril (Prinivil; Zestril) 5 MG tablet(Started 03/17/2022) Take 1 (one) tablet by mouth once daily * nystatin (Mycostatin) 131271 UNIT/GM cream Apply to affected area 2 times daily underneath breast folds * albuterol HFA (Proventil; Ventolin; Proair) 108 (90 Base) MCG/ACT inhaler Inhale 1 (one) puff by mouth every 4 hours as needed for Wheezing or Shortness of Breath * Biotin 1000 MCG Take 1 (one) tablet by mouth once daily * oxyCODONE-acetaminophen (Percocet) 10-325 MG tablet(Started 08/27/2022) TAKE 1 TABLET BY MOUTH TWICE DAILY NEEDED FOR 30 DAYS * Ferrous Sulfate (IRON PO) Take 10 mg by mouth once daily * ascorbic acid (Vitamin C) 125 MG TABS half tablet Take by mouth once daily * Mounjaro 7.5 MG/0.5ML injection(Started 12/02/2023) Inject 12.5 mg subcutaneously every 7 days * metoclopramide (Reglan) 10 MG tablet(Started 02/02/2024) TAKE 1 TABLET BY MOUTH THREE TIMES DAILY BEFORE MEALS * dexlansoprazole (Dexilant) 30 MG capsule(Started 05/30/2024) TAKE 1 CAPSULE BY MOUTH EVERY DAY Active Problems Problem Noted Date Diagnosed Date History of gastric bypass 05/22/2022 Subarachnoid bleed 07/05/2021 BATES (nonalcoholic steatohepatitis) 07/01/2021 NAFLD (nonalcoholic fatty liver disease) 021 Acute recurrent pancreatitis 06/11/2020 Abdominal bloating 10/04/2019 [...] Comments Blood Pressure 124/82 05/05/2024 11:15 AM DENTAL INSURANCE COORDINATOR Pulse 76 05/05/2024 11:15 AM DENTAL INSURANCE COORDINATOR Temperature 36.1 C (96.9 F) 05/05/2024 11:15 AM DENTAL INSURANCE COORDINATOR Respiratory Rate 14 12/14/2023 8:20 AM CDT Oxygen Saturation 96% 05/05/2024 11: 15 AM DENTAL INSURANCE COORDINATOR Inhaled Oxygen Concentration - - Weight 69.3 kg (152 lb 12.8 oz) 024 11:15 AM DENTAL INSURANCE COORDINATOR Height 167.6 cm (5' 6 ) 05/05/2024 11:1 5 AM DENTAL INSURANCE COORDINATOR Body Mass Index 24.66 05/05/2024 11:15 AM DENTAL INSURANCE COORDINATOR Medical Devices Implanted Type Area Compatibility Test Engineer Device Identifier Shelf Expiration Date Model / Serial / Lot Set Xtrn Drn 35cm 1.9mm 3-15cm Cath Inr Implanted:Qty: 1 on 07/08/2021 by Nicholas Peacock MD at [facility] N/A: Cranial [employer] 02/26/2022 [id number] / / [id number] [employer] Titanium Aneurysm Clip Implanted:Qty: 1 on 07/08/2021 by Nicholas Peacock MD at [facility] Right: [facility]ranial [facility] 17-001-33 / [id number] / 101-SD [employer] Titanium Aneurysm Clip Implanted:Qty: 1 on 07/08/2021 by Nicholas Peacock MD at [facility] Right: Cranial On [facility] 17-001-87 / 38-[id number] / [id number] Graft Tissue Drgn + Bvn Clgn Mtrx 5x4in Implanted:Qty: 1 on 07/08/2021 by Nicholas Peacock MD at [facility] N/A: Cranial [employer] 01/27/2024 [id number] / / [id number] Plate 2 Hl Lopro Crnmxf 15mm Str Lucio Implanted:Qty: 2 on 07/08/2021 by Nicholas Peacock MD at [facility] N/A: Cranial [employer] 19-1005 / / Plate 4 Hl Lopro Crnmxf 22mm Lng Str Implanted:Qty: 1 on 07/08/2021 by Nicholas Peacock MD at [facility] N/A: Cranial [employer] 19-1045 / / Cover Bur Hl 13.5mm Spne Bnt Implanted:Qty: 2 on 07/08/2021 by Nicholas Peacock MD at [facility] N/A: Cranial [employer] 19-1019 / / Screw 1.5mm 4mm Slf Drl Xdr Crnmxf Implanted:Qty: 12 on 07/08/2021 by Nicholas Peacock MD at [facility] N/A: Cranial [employer] 91-6704 / / Explanted Type Area Compatibility Test Engineer Device Identifier Shelf Expiration Date Model / Serial / Lot Cover Bur Hl 13.5mm Spne Bnt Explanted:Qty: 1 on 07/08/2021 by Nicholas Peacock MD at [facility] N/A: Cranial [employer] 19-1019 / / Screw 1.5mm 4mm Slf Drl Xdr Crnmxf Explanted:Qty: 1 on 07/08/2021 by Nicholas Peacock MD at [facility] N/A: Cranial [employer] 91-6704 / / Sug[employer] Titanium Aneurysm Clip Explanted:Qty: 1 on 07/08/2021 by Nicholas Peacock MD at [facility] Right: Cranial [employer] Seema 17-006-27 / [id number] / 24-TK Procedures * ZINC BLOOD(Performed 06/03/2024) Performed for Morbid obesity (HCC), Bariatric surgery status, Vitamin deficiency, Vitamin D deficiency, Postsurgical malabsorption (HCC) * VITAMIN K1(Performed 06/03/2024) Performed for Morbid obesity (HCC), Bariatric surgery status, Vitamin deficiency, Vitamin D deficiency, Postsurgical malabsorption (HCC) * VITAMIN E(Performed 06/03/2024) Performed for Morbid obesity (HCC), Bariatric surgery status, Vitamin deficiency, Vitamin D deficiency, Postsurgical malabsorption (HCC) * VITAMIN D 25-HYDROXY(Performed 06/03/2024) Performed for Morbid obesity (HCC), Bariatric surgery status, Vitamin deficiency, Vitamin D deficiency, Postsurgical malabsorption (HCC) * VITAMIN B12(Performed 06/03/2024) Performed for Morbid obesity (HCC), Bariatric surgery status, Vitamin deficiency, Vitamin D deficiency, Postsurgical malabsorption (HCC) * VITAMIN B1(Performed 06/03/2024) Performed for Morbid obesity (HCC), Bariatric surgery status, Vitamin deficiency, Vitamin D deficiency, Postsurgical malabsorption (HCC) * VITAMIN A(Performed 06/03/2024) Performed for Morbid obesity (HCC), Bariatric surgery status, Vitamin deficiency, Vitamin D deficiency, Postsurgical malabsorption (HCC) * PTH INTACT(Performed 06/03/2024) Performed for Morbid obesity (HCC), Bariatric surgery status, Vitamin deficiency, Vitamin D deficiency, Postsurgical malabsorption (HCC) * MAGNESIUM BLOOD(Performed 06/03/2024) Performed for Morbid obesity (HCC), Bariatric surgery status, Vitamin deficiency, Vitamin D deficiency, Postsurgical malabsorption (HCC) * IRON + TIBC PANEL(Performed 06/03/2024) Performed for Morbid obesity (HCC), Bariatric surgery status, Vitamin deficiency, Vitamin D deficiency, Postsurgical malabsorption (HCC) * FOLATE(Performed 06/03/2024) Performed for Morbid obesity (HCC), Bariatric surgery status, Vitamin deficiency, Vitamin D deficiency, Postsurgical malabsorption (HCC) * FERRITIN(Performed 06/03/2024) Performed for Morbid obesity (HCC), Bariatric surgery status, Vitamin deficiency, Vitamin D deficiency, Postsurgical malabsorption (HCC) * COPPER BLOOD(Performed 06/03/2024) Performed for Morbid obesity (HCC), Bariatric surgery status, Vitamin deficiency, Vitamin D deficiency, Postsurgical malabsorption (HCC) * COMPREHENSIVE METABOLIC PANEL(Performed 06/03/2024) Performed for Morbid obesity (HCC), Bariatric surgery status, Vitamin deficiency, Vitamin D deficiency, Postsurgical malabsorption (HCC) * CBC W/O DIFFERENTIAL(Performed 06/03/2024) Performed for Morbid obesity (HCC), Bariatric surgery status, Vitamin deficiency, Vitamin D deficiency, Postsurgical malabsorption (HCC) * CT ABDOMEN PELVIS W CONTRAST(Performed 12/16/2023) Performed for Bariatric surgery status, Abdominal pain, unspecified abdominal location * HELICOBACTER PYLORI UREASE (STL)(Performed 12/14/2023) Performed for Diagnosis unknown * EGD(Performed 12/14/2023) * [place] ED EGD FLEX TRANSORAL DX(Performed 12/14/2023) * FL UGI W SM BOWEL FOLLOW THRU(Performed 09/30/2023) Performed for Gastroesophageal reflux disease without esophagitis * FL UGI SERIES(Performed 09/02/2023) Performed for Gastroesophageal reflux disease without esophagitis * CT ANGIO BRAIN(Performed 09/01/2023) Performed for Cerebral aneurysm (HCC) * CREATININE - POCT INTERFACED(Performed 09/01/2023) * IRON + TIBC PANEL(Performed 06/16/2023) Performed for Morbid obesity (HCC), Bariatric surgery status, Vitamin deficiency, Vitamin D deficiency, Postsurgical malabsorption (HCC) * FOLATE(Performed 06/16/2023) Performed for Morbid obesity (HCC), Bariatric surgery status, Vitamin deficiency, Vitamin D deficiency, Postsurgical malabsorption (HCC) * ZINC BLOOD(Performed 06/16/2023) Performed for Morbid obesity (HCC), Bariatric surgery status, Vitamin deficiency, Vitamin D deficiency, Postsurgical malabsorption (HCC) * VITAMIN K1(Performed 06/16/2023) Performed for Morbid obesity (HCC), Bariatric surgery status, Vitamin deficiency, Vitamin D deficiency, Postsurgical malabsorption (HCC) * VITAMIN E(Performed 06/16/2023) Performed for Morbid obesity (HCC), Bariatric surgery status, Vitamin deficiency, Vitamin D deficiency, Postsurgical malabsorption (HCC) * VITAMIN B12(Performed 06/16/2023) Performed for Morbid obesity (HCC), Bariatric surgery status, Vitamin deficiency, Vitamin D deficiency, Postsurgical malabsorption (HCC) * VITAMIN B1(Performed 06/16/2023) Performed for Morbid obesity (HCC), Bariatric surgery status, Vitamin deficiency, Vitamin D deficiency, Postsurgical malabsorption (HCC) * VITAMIN A(Performed 06/16/2023) Performed for Morbid obesity (HCC), Bariatric surgery status, Vitamin deficiency, Vitamin D deficiency, Postsurgical malabsorption (HCC) * PTH INTACT(Performed 06/16/2023) Performed for Morbid obesity (HCC), Bariatric surgery status, Vitamin deficiency, Vitamin D deficiency, Postsurgical malabsorption (HCC) * PREALBUMIN(Performed 06/16/2023) Performed for Morbid obesity (HCC), Bariatric surgery status, Vitamin deficiency, Vitamin D deficiency, Postsurgical malabsorption (HCC) * MAGNESIUM BLOOD(Performed 06/16/2023) Performed for Morbid obesity (HCC), Bariatric surgery status, Vitamin deficiency, Vitamin D deficiency, Postsurgical malabsorption (HCC) * FERRITIN(Performed 06/16/2023) Performed for Morbid obesity (HCC), Bariatric surgery status, Vitamin deficiency, Vitamin D deficiency, Postsurgical malabsorption (HCC) * COPPER BLOOD(Performed 06/16/2023) Performed for Morbid obesity (HCC), Bariatric surgery status, Vitamin deficiency, Vitamin D deficiency, Postsurgical malabsorption (HCC) * COMPREHENSIVE METABOLIC PANEL(Performed 06/16/2023) Performed for Morbid obesity (HCC), Bariatric surgery status, Vitamin deficiency, Vitamin D deficiency, Postsurgical malabsorption (HCC) * CBC W/O DIFFERENTIAL(Performed 06/16/2023) Performed for Morbid obesity (HCC), Bariatric surgery status, Vitamin deficiency, Vitamin D deficiency, Postsurgical malabsorption (HCC) * VITAMIN D 25-HYDROXY(Performed 06/16/2023) Performed for Morbid obesity (HCC), Bariatric surgery status, Vitamin deficiency, Vitamin D deficiency, Postsurgical malabsorption (HCC) * MAGNESIUM BLOOD(Performed 03/16/2023) Performed for Muscle cramps, Morbid obesity (HCC), Vitamin deficiency, Postsurgical malabsorption (HCC) * FERRITIN(Performed 03/16/2023) Performed for Muscle cramps, Morbid obesity (HCC), Vitamin deficiency, Postsurgical malabsorption (HCC) * COMPREHENSIVE METABOLIC PANEL(Performed 03/16/2023) Performed for Muscle cramps, Morbid obesity (HCC), Vitamin deficiency, Postsurgical malabsorption (HCC) * IRON + TIBC PANEL(Performed 03/16/2023) Performed for Muscle cramps, Morbid obesity (HCC), Vitamin deficiency, Postsurgical malabsorption (HCC) * CBC W/O DIFFERENTIAL(Performed 03/16/2023) Performed for Muscle cramps, Morbid obesity (HCC), Vitamin deficiency, Postsurgical malabsorption (HCC) * ENDOTRACHEAL TUBE NOTE(Performed 02/25/2023) * KS LAP,DIAGNOSTIC ABDOMEN(Performed 02/25/2023) * CT ABDOMEN PELVIS W CONTRAST(Performed 02/04/2023) Performed for Bariatric surgery status, Generalized abdominal pain * VITAMIN D 25-HYDROXY(Performed 11/25/2022) Performed for Morbid obesity (HCC), Bariatric surgery status, Vitamin deficiency, Vitamin D deficiency, Postsurgical malabsorption (HCC) * IRON + TIBC PANEL(Performed 11/25/2022) Performed for Morbid obesity (HCC), Bariatric surgery status, Vitamin deficiency, Vitamin D deficiency, Postsurgical malabsorption (HCC) * FOLATE(Performed 11/25/2022) Performed for Morbid obesity (HCC), Bariatric surgery status, Vitamin deficiency, Vitamin D deficiency, Postsurgical malabsorption (HCC) * ZINC BLOOD(Performed 11/25/2022) Performed for Morbid obesity (HCC), Bariatric surgery status, Vitamin deficiency, Vitamin D deficiency, Postsurgical malabsorption (HCC) * VITAMIN K1(Performed 11/25/2022) Performed for Morbid obesity (HCC), Bariatric surgery status, Vitamin deficiency, Vitamin D deficiency, Postsurgical malabsorption (HCC) * VITAMIN E(Performed 11/25/2022) Performed for Morbid obesity (HCC), Bariatric surgery status, Vitamin deficiency, Vitamin D deficiency, Postsurgical malabsorption (HCC) * VITAMIN B12(Performed 11/25/2022) Performed for Morbid obesity (HCC), Bariatric surgery status, Vitamin deficiency, Vitamin D deficiency, Postsurgical malabsorption (HCC) * VITAMIN B1(Performed 11/25/2022) Performed for Morbid obesity (HCC), Bariatric surgery status, Vitamin deficiency, Vitamin D deficiency, Postsurgical malabsorption (HCC) * VITAMIN A(Performed 11/25/2022) Performed for Morbid obesity (HCC), Bariatric surgery status, Vitamin deficiency, Vitamin D deficiency, Postsurgical malabsorption (HCC) * PTH INTACT(Performed 11/25/2022) Performed for Morbid obesity (HCC), Bariatric surgery status, Vitamin deficiency, Vitamin D deficiency, Postsurgical malabsorption (HCC) * PREALBUMIN(Performed 11/25/2022) Performed for Morbid obesity (HCC), Bariatric surgery status, Vitamin deficiency, Vitamin D deficiency, Postsurgical malabsorption (HCC) * MAGNESIUM BLOOD(Performed 11/25/2022) Performed for Morbid obesity (HCC), Bariatric surgery status, Vitamin deficiency, Vitamin D deficiency, Postsurgical malabsorption (HCC) * FERRITIN(Performed 11/25/2022) Performed for Morbid obesity (HCC), Bariatric surgery status, Vitamin deficiency, Vitamin D deficiency, Postsurgical malabsorption (HCC) * COPPER BLOOD(Performed 11/25/2022) Performed for Morbid obesity (HCC), Bariatric surgery status, Vitamin deficiency, Vitamin D deficiency, Postsurgical malabsorption (HCC) * COMPREHENSIVE METABOLIC PANEL(Performed 11/25/2022) Performed for Morbid obesity (HCC), Bariatric surgery status, Vitamin deficiency, Vitamin D deficiency, Postsurgical malabsorption (HCC) * CBC W/O DIFFERENTIAL(Performed 11/25/2022) Performed for Morbid obesity (HCC), Bariatric surgery status, Vitamin deficiency, Vitamin D deficiency, Postsurgical malabsorption (HCC) * CT ANGIO BRAIN(Performed 09/02/2022) Performed for Cerebral aneurysm (HCC) * IRON + TIBC PANEL(Performed 08/29/2022) Performed for Morbid obesity (HCC), Bariatric surgery status, Vitamin deficiency, Vitamin D deficiency, Postsurgical malabsorption (HCC) * FOLATE(Performed 08/29/2022) Performed for Morbid obesity (HCC), Bariatric surgery status, Vitamin deficiency, Vitamin D deficiency, Postsurgical malabsorption (HCC) * VITAMIN D 25-HYDROXY(Performed 08/29/2022) Performed for Morbid obesity (HCC), Bariatric surgery status, Vitamin deficiency, Vitamin D deficiency, Postsurgical malabsorption (HCC) * FERRITIN(Performed 08/29/2022) Performed for Morbid obesity (HCC), Bariatric surgery status, Vitamin deficiency, Vitamin D deficiency, Postsurgical malabsorption (HCC) * COPPER BLOOD(Performed 08/29/2022) Performed for Morbid obesity (HCC), Bariatric surgery status, Vitamin deficiency, Vitamin D deficiency, Postsurgical malabsorption (HCC) * COMPREHENSIVE METABOLIC PANEL(Performed 08/29/2022) Performed for Morbid obesity (HCC), Bariatric surgery status, Vitamin deficiency, Vitamin D deficiency, Postsurgical malabsorption (HCC) * CBC W/O DIFFERENTIAL(Performed 08/29/2022) Performed for Morbid obesity (HCC), Bariatric surgery status, Vitamin deficiency, Vitamin D deficiency, Postsurgical malabsorption (HCC) * ZINC BLOOD(Performed 08/29/2022) Performed for Morbid obesity (HCC), Bariatric surgery status, Vitamin deficiency, Vitamin D deficiency, Postsurgical malabsorption (HCC) * VITAMIN K1(Performed 08/29/2022) Performed for Morbid obesity (HCC), Bariatric surgery status, Vitamin deficiency, Vitamin D deficiency, Postsurgical malabsorption (HCC) * VITAMIN E(Performed 08/29/2022) Performed for Morbid obesity (HCC), Bariatric surgery status, Vitamin deficiency, Vitamin D deficiency, Postsurgical malabsorption (HCC) * VITAMIN B12(Performed 08/29/2022) Performed for Morbid obesity (HCC), Bariatric surgery status, Vitamin deficiency, Vitamin D deficiency, Postsurgical malabsorption (HCC) * VITAMIN B1(Performed 08/29/2022) Performed for Morbid obesity (HCC), Bariatric surgery status, Vitamin deficiency, Vitamin D deficiency, Postsurgical malabsorption (HCC) * VITAMIN A(Performed 08/29/2022) Performed for Morbid obesity (HCC), Bariatric surgery status, Vitamin deficiency, Vitamin D deficiency, Postsurgical malabsorption (HCC) * PTH INTACT(Performed 08/29/2022) Performed for Morbid obesity (HCC), Bariatric surgery status, Vitamin deficiency, Vitamin D deficiency, Postsurgical malabsorption (HCC) * PREALBUMIN(Performed 08/29/2022) Performed for Morbid obesity (HCC), Bariatric surgery status, Vitamin deficiency, Vitamin D deficiency, Postsurgical malabsorption (HCC) * MAGNESIUM BLOOD(Performed 08/29/2022) Performed for Morbid obesity (HCC), Bariatric surgery status, Vitamin deficiency, Vitamin D deficiency, Postsurgical malabsorption (HCC) * CARDIAC RHYTHM STRIP ORDER(Performed 06/04/2022) * XR ABDOMEN KUB(Performed 05/30/2022) Performed for Abdominal pain, epigastric * GLUCOSE - POINT OF CARE(Performed 05/30/2022) * GLUCOSE - POINT OF CARE(Performed 05/30/2022) * GLUCOSE - POINT OF CARE(Performed 05/30/2022) * GLUCOSE - POINT OF CARE(Performed 05/29/2022) * GLUCOSE - POINT OF CARE(Performed 05/29/2022) * FL UGI SERIES(Performed 05/29/2022) Performed for History of gastric bypass * BASIC METABOLIC PANEL (CALCIUM TOTAL)(Performed 05/29/2022) * CBC W/O DIFFERENTIAL(Performed 05/29/2022) * GLUCOSE - POINT OF CARE(Performed 05/29/2022) * GLUCOSE - POINT OF CARE(Performed 05/29/2022) * GLUCOSE - POINT OF CARE(Performed 05/28/2022) * ENDOTRACHEAL TUBE NOTE(Performed 05/28/2022) * LAPAROSCOPIC REPAIR PARAESOPHAGEAL/HIATAL HERNIA(Performed 05/28/2022) * COMPREHENSIVE METABOLIC PANEL(Performed 05/27/2022) * CBC W/O DIFFERENTIAL(Performed 05/27/2022) * C-REACTIVE PROTEIN(Performed 05/27/2022) * FERRITIN(Performed 05/26/2022) * FL SMALL BOWEL SERIES(Performed 05/25/2022) Performed for History of gastric bypass * CBC W AUTO DIFFERENTIAL(Performed 05/23/2022) Performed for Abdominal pain, epigastric, History of gastric bypass * PHOSPHORUS BLOOD(Performed 05/23/2022) Performed for History of gastric bypass * MAGNESIUM BLOOD(Performed 05/23/2022) Performed for History of gastric bypass * COMPREHENSIVE METABOLIC PANEL(Performed 05/23/2022) Performed for History of gastric bypass * URINE MICROSCOPIC ONLY REFLEX TO CULTURE(Performed 05/22/2022) * URINALYSIS REFLEX MICROSCOPIC REFLEX CULTURE(Performed 05/22/2022) * CULTURE URINE(Performed 05/22/2022) * XR ABDOMEN KUB(Performed 05/22/2022) Performed for Abdominal pain, epigastric, History of gastric bypass * CT ABDOMEN PELVIS W CONTRAST(Performed 05/21/2022) Performed for Abdominal pain, epigastric, History of gastric bypass * HCG BLOOD QUALITATIVE(Performed 05/21/2022) * LACTIC ACID BLOOD REFLEX TO REPEAT(Performed 05/21/2022) * LIPASE BLOOD(Performed 05/21/2022) * COMPREHENSIVE METABOLIC PANEL(Performed 05/21/2022) * CBC W AUTO DIFFERENTIAL(Performed 05/21/2022) * EYE EXAM(Performed 03/10/2022) * HELICOBACTER PYLORI UREASE (STL)(Performed 01/06/2022) Performed for Diagnosis deferred * [place] ED EGD FLEX TRANSORAL DX(Performed 01/06/2022) * EGD(Performed 01/06/2022) * PTH INTACT(Performed 12/19/2021) Performed for H/O gastric bypass, Dietary counseling and surveillance, Postsurgical malabsorption (HCC), Weight loss, Epigastric abdominal pain * VITAMIN A(Performed 12/19/2021) Performed for H/O gastric bypass, Dietary counseling and surveillance, Postsurgical malabsorption (HCC), Weight loss, Epigastric abdominal pain * VITAMIN B1(Performed 12/19/2021) Performed for H/O gastric bypass, Dietary counseling and surveillance, Postsurgical malabsorption (HCC), Weight loss, Epigastric abdominal pain * VITAMIN B12(Performed 12/19/2021) Performed for H/O gastric bypass, Dietary counseling and surveillance, Postsurgical malabsorption (HCC), Weight loss, Epigastric abdominal pain * VITAMIN E(Performed 12/19/2021) Performed for H/O gastric bypass, Dietary counseling and surveillance, Postsurgical malabsorption (HCC), Weight loss, Epigastric abdominal pain * VITAMIN K1(Performed 12/19/2021) Performed for H/O gastric bypass, Dietary counseling and surveillance, Postsurgical malabsorption (HCC), Weight loss, Epigastric abdominal pain * ZINC BLOOD(Performed 12/19/2021) Performed for H/O gastric bypass, Dietary counseling and surveillance, Postsurgical malabsorption (HCC), Weight loss, Epigastric abdominal pain * PREALBUMIN(Performed 12/19/2021) Performed for H/O gastric bypass, Dietary counseling and surveillance, Postsurgical malabsorption (HCC), Weight loss, Epigastric abdominal pain * FL UGI SERIES(Performed 12/18/2021) Performed for H/O gastric bypass, Gastroesophageal reflux disease, unspecified whether esophagitis present * CT HEAD WO CONTRAST(Performed 08/27/2021) Performed for Acute post-traumatic headache, not intractable * EYE EXAM(Performed 08/27/2021) * BASIC METABOLIC PANEL (CALCIUM TOTAL)(Performed 07/30/2021) * CBC W/O DIFFERENTIAL(Performed 07/30/2021) * LIPASE BLOOD(Performed 07/25/2021) * COMPREHENSIVE METABOLIC PANEL(Performed 07/25/2021) * CBC W AUTO DIFFERENTIAL(Performed 07/25/2021) * CK BLOOD(Performed 07/25/2021) * TROPONIN I(Performed 07/25/2021) * CT ABDOMEN PELVIS W CONTRAST(Performed 07/24/2021) * XR ABDOMEN KUB(Performed 07/24/2021) * COMPREHENSIVE METABOLIC PANEL(Performed 07/24/2021) * LIPASE BLOOD(Performed 07/24/2021) * CBC W AUTO DIFFERENTIAL(Performed 07/24/2021) * VASCULAR LAB ORDER(Performed 07/23/2021) * XR ABDOMEN KUB(Performed 07/22/2021) * CBC W AUTO DIFFERENTIAL(Performed 07/22/2021) * COMPREHENSIVE METABOLIC PANEL(Performed 07/22/2021) * SODIUM BLOOD(Performed 07/19/2021) Performed for Acute post-traumatic headache, not intractable * CALCIUM IONIZED WHOLE BLOOD(Performed 07/19/2021) Performed for Acute post-traumatic headache, not intractable * BASIC METABOLIC PANEL (CALCIUM TOTAL)(Performed 07/19/2021) Performed for Acute post-traumatic headache, not intractable * BASIC METABOLIC PANEL (CALCIUM TOTAL)(Performed 07/18/2021) Performed for Acute post-traumatic headache, not intractable * PHOSPHORUS BLOOD(Performed 07/18/2021) Performed for Subarachnoid bleed (HCC) * MAGNESIUM BLOOD(Performed 07/18/2021) Performed for Subarachnoid bleed (HCC) * CBC W/O DIFFERENTIAL(Performed 07/18/2021) Performed for Subarachnoid bleed (HCC) * SODIUM BLOOD(Performed 07/18/2021) Performed for Acute post-traumatic headache, not intractable * BASIC METABOLIC PANEL (CALCIUM TOTAL)(Performed 07/18/2021) Performed for Acute post-traumatic headache, not intractable * CALCIUM IONIZED WHOLE BLOOD(Performed 07/18/2021) Performed for Acute post-traumatic headache, not intractable * SODIUM BLOOD(Performed 07/18/2021) Performed for Acute post-traumatic headache, not intractable * BASIC METABOLIC PANEL (CALCIUM TOTAL)(Performed 07/18/2021) Performed for Acute post-traumatic headache, not intractable * VAS TRANSCRANIAL DOPPLER COMP(Performed 07/18/2021) Performed for Acute post-traumatic headache, not intractable * BASIC METABOLIC PANEL (CALCIUM TOTAL)(Performed 07/18/2021) Performed for Acute post-traumatic headache, not intractable * PHOSPHORUS BLOOD(Performed 07/18/2021) Performed for Subarachnoid bleed (HCC) * MAGNESIUM BLOOD(Performed 07/18/2021) Performed for Subarachnoid bleed (HCC) * CBC W/O DIFFERENTIAL(Performed 07/18/2021) Performed for Subarachnoid bleed (HCC) * CALCIUM IONIZED WHOLE BLOOD(Performed 07/18/2021) Performed for Acute post-traumatic headache, not intractable * VAS TRANSCRANIAL DOPPLER COMP(Performed 07/17/2021) Performed for Acute post-traumatic headache, not intractable * BASIC METABOLIC PANEL (CALCIUM TOTAL)(Performed 07/17/2021) Performed for Acute post-traumatic headache, not intractable * PHOSPHORUS BLOOD(Performed 07/17/2021) Performed for Subarachnoid bleed (HCC) * MAGNESIUM BLOOD(Performed 07/17/2021) Performed for Subarachnoid bleed (HCC) * CBC W/O DIFFERENTIAL(Performed 07/17/2021) Performed for Subarachnoid bleed (HCC) * CALCIUM IONIZED WHOLE BLOOD(Performed 07/16/2021) Performed for Acute post-traumatic headache, not intractable * VAS TRANSCRANIAL DOPPLER COMP(Performed 07/16/2021) Performed for Acute post-traumatic headache, not intractable * BASIC METABOLIC PANEL (CALCIUM TOTAL)(Performed 07/16/2021) Performed for Acute post-traumatic headache, not intractable * SODIUM BLOOD(Performed 07/16/2021) Performed for Acute post-traumatic headache, not intractable * BASIC METABOLIC PANEL (CALCIUM TOTAL)(Performed 07/15/2021) Performed for Acute post-traumatic headache, not intractable * PHOSPHORUS BLOOD(Performed 07/15/2021) Performed for Subarachnoid bleed (HCC) * MAGNESIUM BLOOD(Performed 07/15/2021) Performed for Subarachnoid bleed (HCC) * CBC W/O DIFFERENTIAL(Performed 07/15/2021) Performed for Subarachnoid bleed (HCC) * SODIUM BLOOD(Performed 07/15/2021) Performed for Acute post-traumatic headache, not intractable * CALCIUM IONIZED WHOLE BLOOD(Performed 07/15/2021) Performed for Acute post-traumatic headache, not intractable * BASIC METABOLIC PANEL (CALCIUM TOTAL)(Performed 07/15/2021) Performed for Acute post-traumatic headache, not intractable * VAS TRANSCRANIAL DOPPLER COMP(Performed 07/15/2021) Performed for Nontraumatic subarachnoid hemorrhage, unspecified (HCC) * SODIUM BLOOD(Performed 07/15/2021) Performed for Acute post-traumatic headache, not intractable * BASIC METABOLIC PANEL (CALCIUM TOTAL)(Performed 07/14/2021) Performed for Acute post-traumatic headache, not intractable * PHOSPHORUS BLOOD(Performed 07/14/2021) Performed for Subarachnoid bleed (HCC) * MAGNESIUM BLOOD(Performed 07/14/2021) Performed for Subarachnoid bleed (HCC) * CBC W/O DIFFERENTIAL(Performed 07/14/2021) Performed for Subarachnoid bleed (HCC) * SODIUM BLOOD(Performed 07/14/2021) Performed for Acute post-traumatic headache, not intractable * CALCIUM IONIZED WHOLE BLOOD(Performed 07/14/2021) Performed for Acute post-traumatic headache, not intractable * BASIC METABOLIC PANEL (CALCIUM TOTAL)(Performed 07/14/2021) Performed for Acute post-traumatic headache, not intractable * SODIUM BLOOD(Performed 07/14/2021) Performed for Acute post-traumatic headache, not intractable * OSMOLALITY URINE(Performed 07/14/2021) Performed for Acute post-traumatic headache, not intractable * SPECIFIC GRAVITY URINE(Performed 07/14/2021) Performed for Acute post-traumatic headache, not intractable * BASIC METABOLIC PANEL (CALCIUM TOTAL)(Performed 07/14/2021) Performed for Acute post-traumatic headache, not intractable * PHOSPHORUS BLOOD(Performed 07/14/2021) Performed for Subarachnoid bleed (HCC) * MAGNESIUM BLOOD(Performed 07/14/2021) Performed for Subarachnoid bleed (HCC) * CBC W/O DIFFERENTIAL(Performed 07/14/2021) Performed for Subarachnoid bleed (HCC) * SODIUM BLOOD(Performed 07/13/2021) Performed for Acute post-traumatic headache, not intractable * SODIUM BLOOD(Performed 07/13/2021) Performed for Acute post-traumatic headache, not intractable * BASIC METABOLIC PANEL (CALCIUM TOTAL)(Performed 07/13/2021) Performed for Acute post-traumatic headache, not intractable * CALCIUM IONIZED WHOLE BLOOD(Performed 07/13/2021) Performed for Acute post-traumatic headache, not intractable * SODIUM BLOOD(Performed 07/13/2021) * SODIUM BLOOD(Performed 07/13/2021) * BASIC METABOLIC PANEL (CALCIUM TOTAL)(Performed 07/12/2021) Performed for Acute post-traumatic headache, not intractable * PHOSPHORUS BLOOD(Performed 07/12/2021) Performed for Subarachnoid bleed (HCC) * MAGNESIUM BLOOD(Performed 07/12/2021) Performed for Subarachnoid bleed (HCC) * CBC W/O DIFFERENTIAL(Performed 07/12/2021) Performed for Subarachnoid bleed (HCC) * SODIUM BLOOD(Performed 07/12/2021) Performed for Acute post-traumatic headache, not intractable * XR CHEST 1VW PORTABLE(Performed 07/12/2021) Performed for Acute post-traumatic headache, not intractable * BASIC METABOLIC PANEL (CALCIUM TOTAL)(Performed 07/12/2021) Performed for Acute post-traumatic headache, not intractable * CALCIUM IONIZED WHOLE BLOOD(Performed 07/12/2021) Performed for Acute post-traumatic headache, not intractable * VAS TRANSCRANIAL DOPPLER COMP(Performed 07/12/2021) Performed for Subarachnoid bleed (HCC) * CT HEAD WO CONTRAST(Performed 07/12/2021) Performed for Acute post-traumatic headache, not intractable * SODIUM BLOOD(Performed 07/12/2021) Performed for Acute recurrent pancreatitis ([facility]) * SODIUM BLOOD(Performed 07/11/2021) Performed for Nontraumatic subarachnoid hemorrhage, unspecified ([facility]) * BASIC METABOLIC PANEL (CALCIUM TOTAL)(Performed 07/11/2021) Performed for Acute post-traumatic headache, not intractable * PHOSPHORUS BLOOD(Performed 07/11/2021) Performed for Subarachnoid bleed (HCC) * MAGNESIUM BLOOD(Performed 07/11/2021) Performed for Subarachnoid bleed (HCC) * CBC W/O DIFFERENTIAL(Performed 07/11/2021) Performed for Subarachnoid bleed (HCC) * SODIUM BLOOD(Performed 07/11/2021) Performed for Acute post-traumatic headache, not intractable * GRAM STAIN (LAB ORDERED)(Performed 07/11/2021) * DIFFERENTIAL MANUAL FLUID(Performed 07/11/2021) * CELL COUNT W DIFFERENTIAL CSF(Performed 07/11/2021) * GLUCOSE CSF(Performed 07/11/2021) * PROTEIN CSF(Performed 07/11/2021) * CULTURE CSF+GRAM STAIN(Performed 07/11/2021) * CULTURE CSF+GRAM STAIN(Performed 07/11/2021) * CALCIUM IONIZED WHOLE BLOOD(Performed 07/11/2021) Performed for Acute post-traumatic headache, not intractable * BASIC METABOLIC PANEL (CALCIUM TOTAL)(Performed 07/11/2021) Performed for Acute post-traumatic headache, not intractable * VAS TRANSCRANIAL DOPPLER COMP(Performed 07/11/2021) Performed for Acute post-traumatic headache, not intractable * SODIUM BLOOD(Performed 07/11/2021) Performed for Acute post-traumatic headache, not intractable * XR ABDOMEN KUB PORTABLE(Performed 07/11/2021) Performed for Acute post-traumatic headache, not intractable * BASIC METABOLIC PANEL (CALCIUM TOTAL)(Performed 07/11/2021) Performed for Acute post-traumatic headache, not intractable * PHOSPHORUS BLOOD(Performed 07/11/2021) Performed for Subarachnoid bleed (HCC) * MAGNESIUM BLOOD(Performed 07/11/2021) Performed for Subarachnoid bleed (HCC) * CBC W/O DIFFERENTIAL(Performed 07/11/2021) Performed for Subarachnoid bleed (HCC) * SODIUM BLOOD(Performed 07/10/2021) Performed for Acute post-traumatic headache, not intractable * XR ABDOMEN KUB PORTABLE(Performed 07/10/2021) Performed for Acute post-traumatic headache, not intractable * CALCIUM IONIZED WHOLE BLOOD(Performed 07/10/2021) Performed for Acute post-traumatic headache, not intractable * SODIUM BLOOD(Performed 07/10/2021) Performed for Acute post-traumatic headache, not intractable * XR ABDOMEN KUB PORTABLE(Performed 07/10/2021) Performed for Acute post-traumatic headache, not intractable * VAS TRANSCRANIAL DOPPLER COMP(Performed 07/10/2021) Performed for Subarachnoid bleed (HCC) * BASIC METABOLIC PANEL (CALCIUM TOTAL)(Performed 07/10/2021) * BASIC METABOLIC PANEL (CALCIUM TOTAL)(Performed 07/09/2021) * PHOSPHORUS BLOOD(Performed 07/09/2021) Performed for Subarachnoid bleed (HCC) * MAGNESIUM BLOOD(Performed 07/09/2021) Performed for Subarachnoid bleed (HCC) * CBC W/O DIFFERENTIAL(Performed 07/09/2021) Performed for Subarachnoid bleed (HCC) * BASIC METABOLIC PANEL (CALCIUM TOTAL)(Performed 07/09/2021) * BASIC METABOLIC PANEL (CALCIUM TOTAL)(Performed 07/09/2021) * VAS TRANSCRANIAL DOPPLER COMP(Performed 07/09/2021) Performed for BATES (nonalcoholic steatohepatitis), Cerebral aneurysm rupture (HCC) * BASIC METABOLIC PANEL (CALCIUM TOTAL)(Performed 07/09/2021) * CT HEAD WO CONTRAST(Performed 07/09/2021) Performed for Acute post-traumatic headache, not intractable * PREPARE RBC LEUKOREDUCED UNIT(Performed 07/09/2021) * PREPARE RBC LEUKOREDUCED UNIT(Performed 07/09/2021) Performed for Subarachnoid bleed (HCC) * PHOSPHORUS BLOOD(Performed 07/08/2021) Performed for Subarachnoid bleed (HCC) * MAGNESIUM BLOOD(Performed 07/08/2021) Performed for Subarachnoid bleed (HCC) * CBC W/O DIFFERENTIAL(Performed 07/08/2021) Performed for Subarachnoid bleed (HCC) * BASIC METABOLIC PANEL (CALCIUM TOTAL)(Performed 07/08/2021) * BASIC METABOLIC PANEL (CALCIUM TOTAL)(Performed 07/08/2021) * BASIC METABOLIC PANEL (CALCIUM TOTAL)(Performed 07/08/2021) Performed for Subarachnoid bleed (HCC) * BLOOD GAS+COOX+ELECTROLYTES+METAB ARTERIAL(Performed 07/08/2021) Performed for Subarachnoid bleed (HCC) * PERIPHERAL IV NOTE(Performed 07/08/2021) * STEREOTACTIC ASSISTED CRANIAL PROCEDURE/CRANIOTOMY(Performed 07/08/2021) Performed for Aneurysm (HCC) * ENDOTRACHEAL TUBE NOTE(Performed 07/08/2021) * PERIPHERAL IV NOTE(Performed 07/08/2021) * PERIPHERAL IV NOTE(Performed 07/08/2021) * PHOSPHORUS BLOOD(Performed 07/07/2021) Performed for Subarachnoid bleed (HCC) * MAGNESIUM BLOOD(Performed 07/07/2021) Performed for Subarachnoid bleed (HCC) * BASIC METABOLIC PANEL (CALCIUM TOTAL)(Performed 07/07/2021) Performed for Subarachnoid bleed (HCC) * CBC W/O DIFFERENTIAL(Performed 07/07/2021) Performed for Subarachnoid bleed (HCC) * CT ANGIO BRAIN STEREOTACTIC(Performed 07/07/2021) Performed for Subarachnoid bleed (HCC) * SODIUM BLOOD(Performed 07/07/2021) Performed for Subarachnoid bleed (HCC) * SARS-COV-2 (COVID-19) IN HOUSE(Performed 07/07/2021) * BASIC METABOLIC PANEL (CALCIUM TOTAL)(Performed 07/07/2021) Performed for Subarachnoid bleed (HCC) * SODIUM BLOOD(Performed 07/07/2021) * PHOSPHORUS BLOOD(Performed 07/06/2021) Performed for Subarachnoid bleed (HCC) * MAGNESIUM BLOOD(Performed 07/06/2021) Performed for Subarachnoid bleed (HCC) * BASIC METABOLIC PANEL (CALCIUM TOTAL)(Performed 07/06/2021) Performed for Subarachnoid bleed (HCC) * CBC W/O DIFFERENTIAL(Performed 07/06/2021) Performed for Subarachnoid bleed (HCC) * PHOSPHORUS BLOOD(Performed 07/05/2021) Performed for Subarachnoid bleed (HCC) * MAGNESIUM BLOOD(Performed 07/05/2021) Performed for Subarachnoid bleed (HCC) * BASIC METABOLIC PANEL (CALCIUM TOTAL)(Performed 07/05/2021) Performed for Subarachnoid bleed (HCC) * CBC W/O DIFFERENTIAL(Performed 07/05/2021) Performed for Subarachnoid bleed (HCC) * VAS TRANSCRANIAL DOPPLER COMP(Performed 07/05/2021) Performed for Acute nonintractable headache, unspecified headache type * IR CAROTID CEREBRAL ANGIOGRAM(Performed 07/05/2021) Performed for Subarachnoid bleed (HCC) * CT ANGIO BRAIN AND NECK(Performed 07/05/2021) Performed for Acute nonintractable headache, unspecified headache type * PT-INR [facility](Performed 07/05/2021) * CBC W AUTO DIFFERENTIAL(Performed 07/05/2021) * BASIC METABOLIC PANEL (CALCIUM TOTAL)(Performed 07/05/2021) * OXYGEN(Performed 07/05/2021) * BLOOD TYPE VERIFICATION(Performed 07/05/2021) * TYPE + SCREEN PANEL(Performed 07/05/2021) * PT-INR [facility](Performed 07/05/2021) * CBC W AUTO DIFFERENTIAL(Performed 07/05/2021) * COMPREHENSIVE METABOLIC PANEL(Performed 07/05/2021) * CT HEAD WO CONTRAST(Performed 07/05/2021) Performed for Acute nonintractable headache, unspecified headache type * LIPID PROFILE(Performed 05/17/2021) Performed for Acute recurrent pancreatitis (HCC) * HEPATITIS C ANTIBODY(Performed 05/17/2021) Performed for Abnormal LFTs * FERRITIN(Performed 05/17/2021) Performed for Abnormal LFTs * HEPATITIS B SURFACE ANTIGEN W RFLX CONFIRMATION(Performed 05/17/2021) Performed for Abnormal LFTs * HEPATITIS B SURFACE ANTIBODY(Performed 05/17/2021) Performed for Abnormal LFTs * HEPATITIS B CORE ANTIBODY TOTAL(Performed 05/17/2021) Performed for Abnormal LFTs * HEPATITIS A ANTIBODY(Performed 05/17/2021) Performed for Abnormal LFTs * CERULOPLASMIN(Performed 05/17/2021) Performed for Abnormal LFTs * IGG BLOOD(Performed 05/17/2021) Performed for Abnormal LFTs * MICROSOMAL ANTIBODY LIVER/KIDNEY(Performed 05/17/2021) Performed for Abnormal LFTs * SMOOTH MUSCLE ANTIBODY W REFLEX TITER(Performed 05/17/2021) Performed for Abnormal LFTs * REJI BLOOD SCREEN W/REFLEX TITER(Performed 05/17/2021) Performed for Abnormal LFTs * MITOCHONDRIAL ANTIBODY SCREEN(Performed 05/17/2021) Performed for Abnormal LFTs * YHASE-[id number] BLOOD(Performed 05/17/2021) Performed for Abnormal LFTs * IGG SUBCLASS 4(Performed 05/17/2021) Performed for Acute recurrent pancreatitis (HCC) * LIPASE BLOOD(Performed 05/17/2021) Performed for Acute recurrent pancreatitis (HCC) * HEPATIC FUNCTION PANEL(Performed 05/17/2021) Performed for Abnormal LFTs * KS LIVER ELASTOGRAPHY(Performed 05/17/2021) Performed for Abnormal LFTs * XR CERVICAL SPINE 4 OR 5VW(Performed 10/01/2020) Performed for Degeneration of cervical intervertebral disc, Cervical spondylosis * XR SHOULDER BILAT 2VW OR MORE(Performed 10/01/2020) Performed for Post-traumatic osteoarthritis of both shoulders * MRI ABDOMEN W MRCP WWO CONT W3D(Performed 08/08/2020) Performed for Epigastric pain * CREATININE - POCT INTERFACED(Performed 08/08/2020) * LIPASE BLOOD(Performed 08/02/2020) Performed for Generalized abdominal pain * COMPREHENSIVE METABOLIC PANEL(Performed 08/02/2020) Performed for Generalized abdominal pain * CBC W AUTO DIFFERENTIAL(Performed 08/02/2020) Performed for Generalized abdominal pain * HC THORACIC SPINE 3 VW(Performed 07/07/2020) * HELICOBACTER PYLORI UREASE (STL)(Performed 07/06/2020) Performed for Diagnosis unknown * [place] ED EGD FLEX TRANSORAL DX(Performed 07/06/2020) * EGD(Performed 07/06/2020) * MRI ABDOMEN(Performed 06/08/2020) * CT ABDOMEN PELVIS IMAGE(Performed 06/05/2020) * VITAMIN D 25-HYDROXY(Performed 05/23/2020) Performed for Morbid obesity (HCC), Vitamin deficiency, Vitamin D deficiency, Bariatric surgery status, Postsurgical malabsorption (HCC), Epigastric abdominal pain * IRON + TIBC PANEL(Performed 05/23/2020) Performed for Morbid obesity (HCC), Vitamin deficiency, Vitamin D deficiency, Bariatric surgery status, Postsurgical malabsorption (HCC), Epigastric abdominal pain * FOLATE(Performed 05/23/2020) Performed for Morbid obesity (HCC), Vitamin deficiency, Vitamin D deficiency, Bariatric surgery status, Postsurgical malabsorption (HCC), Epigastric abdominal pain * ZINC BLOOD(Performed 05/23/2020) Performed for Bariatric surgery status, Morbid obesity (HCC), BMI 32.0- 32.9,adult, Vitamin D deficiency, Vitamin deficiency, Postsurgical malabsorption (HCC), Gastroesophageal reflux disease without esophagitis * VITAMIN K1(Performed 05/23/2020) Performed for Bariatric surgery status, Morbid obesity (HCC), BMI 32.0- 32.9,adult, Vitamin D deficiency, Vitamin deficiency, Postsurgical malabsorption (HCC), Gastroesophageal reflux disease without esophagitis * VITAMIN E(Performed 05/23/2020) Performed for Bariatric surgery status, Morbid obesity (HCC), BMI 32.0- 32.9,adult, Vitamin D deficiency, Vitamin deficiency, Postsurgical malabsorption (HCC), Gastroesophageal reflux disease without esophagitis * VITAMIN B12(Performed 05/23/2020) Performed for Bariatric surgery status, Morbid obesity (HCC), BMI 32.0- 32.9,adult, Vitamin D deficiency, Vitamin deficiency, Postsurgical malabsorption (HCC), Gastroesophageal reflux disease without esophagitis * VITAMIN B1(Performed 05/23/2020) Performed for Bariatric surgery status, Morbid obesity (HCC), BMI 32.0- 32.9,adult, Vitamin D deficiency, Vitamin deficiency, Postsurgical malabsorption (HCC), Gastroesophageal reflux disease without esophagitis * VITAMIN A(Performed 05/23/2020) Performed for Bariatric surgery status, Morbid obesity (HCC), BMI 32.0- 32.9,adult, Vitamin D deficiency, Vitamin deficiency, Postsurgical malabsorption (HCC), Gastroesophageal reflux disease without esophagitis * SELENIUM(Performed 05/23/2020) Performed for Bariatric surgery status, Morbid obesity (HCC), BMI 32.0- 32.9,adult, Vitamin D deficiency, Vitamin deficiency, Postsurgical malabsorption (HCC), Gastroesophageal reflux disease without esophagitis * PTH INTACT(Performed 05/23/2020) Performed for Bariatric surgery status, Morbid obesity (HCC), BMI 32.0- 32.9,adult, Vitamin D deficiency, Vitamin deficiency, Postsurgical malabsorption (HCC), Gastroesophageal reflux disease without esophagitis * MAGNESIUM BLOOD(Performed 05/23/2020) Performed for Bariatric surgery status, Morbid obesity (HCC), BMI 32.0- 32.9,adult, Vitamin D deficiency, Vitamin deficiency, Postsurgical malabsorption (HCC), Gastroesophageal reflux disease without esophagitis * FERRITIN(Performed 05/23/2020) Performed for Bariatric surgery status, Morbid obesity (HCC), BMI 32.0- 32.9,adult, Vitamin D deficiency, Vitamin deficiency, Postsurgical malabsorption (HCC), Gastroesophageal reflux disease without esophagitis * COPPER BLOOD(Performed 05/23/2020) Performed for Bariatric surgery status, Morbid obesity (HCC), BMI 32.0- 32.9,adult, Vitamin D deficiency, Vitamin deficiency, Postsurgical malabsorption (HCC), Gastroesophageal reflux disease without esophagitis * COMPREHENSIVE METABOLIC PANEL(Performed 05/23/2020) Performed for Bariatric surgery status, Morbid obesity (HCC), BMI 32.0- 32.9,adult, Vitamin D deficiency, Vitamin deficiency, Postsurgical malabsorption (HCC), Gastroesophageal reflux disease without esophagitis * CBC W/O DIFFERENTIAL(Performed 05/23/2020) Performed for Bariatric surgery status, Morbid obesity (HCC), BMI 32.0- 32.9,adult, Vitamin D deficiency, Vitamin deficiency, Postsurgical malabsorption (HCC), Gastroesophageal reflux disease without esophagitis * MRI CERVICAL SPINE WO CONTRAST(Performed 04/19/2020) * MRI CERVICAL SPINE WO CONTRAST(Performed 04/19/2020) * COMPREHENSIVE METABOLIC PANEL(Performed 01/06/2019) Performed for Abdominal pain, RUQ (right upper quadrant), Elevated LFTs * ESOPHAGOGASTRODUODENOSCOPY (EGD) DIAGNOSTIC(Performed 01/04/2019) * ZINC BLOOD(Performed 11/29/2018) Performed for Bariatric surgery status, Morbid obesity (HCC), BMI 32.0- 32.9,adult, Intestinal malabsorption, unspecified type (HCC), Malaise and fatigue * VITAMIN K1(Performed 11/29/2018) Performed for Bariatric surgery status, Morbid obesity (HCC), BMI 32.0- 32.9,adult, Intestinal malabsorption, unspecified type (HCC), Malaise and fatigue * VITAMIN E(Performed 11/29/2018) Performed for Bariatric surgery status, Morbid obesity (HCC), BMI 32.0- 32.9,adult, Intestinal malabsorption, unspecified type (HCC), Malaise and fatigue * VITAMIN D 25-HYDROXY(Performed 11/29/2018) Performed for Bariatric surgery status, Morbid obesity (HCC), BMI 32.0- 32.9,adult, Intestinal malabsorption, unspecified type (HCC), Malaise and fatigue * VITAMIN B12(Performed 11/29/2018) Performed for Bariatric surgery status, Morbid obesity (HCC), BMI 32.0- 32.9,adult, Intestinal malabsorption, unspecified type (HCC), Malaise and fatigue * VITAMIN B1(Performed 11/29/2018) Performed for Bariatric surgery status, Morbid obesity (HCC), BMI 32.0- 32.9,adult, Intestinal malabsorption, unspecified type (HCC), Malaise and fatigue * VITAMIN A(Performed 11/29/2018) Performed for Bariatric surgery status, Morbid obesity (HCC), BMI 32.0- 32.9,adult, Intestinal malabsorption, unspecified type (HCC), Malaise and fatigue * SELENIUM(Performed 11/29/2018) Performed for Bariatric surgery status, Morbid obesity (HCC), BMI 32.0- 32.9,adult, Intestinal malabsorption, unspecified type (HCC), Malaise and fatigue * PTH INTACT(Performed 11/29/2018) Performed for Bariatric surgery status, Morbid obesity (HCC), BMI 32.0- 32.9,adult, Intestinal malabsorption, unspecified type (HCC), Malaise and fatigue * MAGNESIUM BLOOD(Performed 11/29/2018) Performed for Bariatric surgery status, Morbid obesity (HCC), BMI 32.0- 32.9,adult, Intestinal malabsorption, unspecified type (HCC), Malaise and fatigue * IRON BLOOD(Performed 11/29/2018) Performed for Bariatric surgery status, Morbid obesity (HCC), BMI 32.0- 32.9,adult, Intestinal malabsorption, unspecified type (HCC), Malaise and fatigue * FOLATE(Performed 11/29/2018) Performed for Bariatric surgery status, Morbid obesity (HCC), BMI 32.0- 32.9,adult, Intestinal malabsorption, unspecified type (HCC), Malaise and fatigue * FERRITIN(Performed 11/29/2018) Performed for Bariatric surgery status, Morbid obesity (HCC), BMI 32.0- 32.9,adult, Intestinal malabsorption, unspecified type (HCC), Malaise and fatigue * COPPER BLOOD(Performed 11/29/2018) Performed for Bariatric surgery status, Morbid obesity (HCC), BMI 32.0- 32.9,adult, Intestinal malabsorption, unspecified type (HCC), Malaise and fatigue * COMPREHENSIVE METABOLIC PANEL(Performed 11/29/2018) Performed for Bariatric surgery status, Morbid obesity (HCC), BMI 32.0- 32.9,adult, Intestinal malabsorption, unspecified type (HCC), Malaise and fatigue * CBC W/O DIFFERENTIAL(Performed 11/29/2018) Performed for Bariatric surgery status, Morbid obesity (HCC), BMI 32.0- 32.9,adult, Intestinal malabsorption, unspecified type (HCC), Malaise and fatigue * CARDIAC RHYTHM STRIP ORDER(Performed 09/18/2018) * APHERESIS/TRANSFUSION ORDER(Performed 09/18/2018) * PATHOLOGY TISSUE EXAM ([facility])(Performed 09/14/2018) Performed for Left ovarian cyst * ENDOTRACHEAL TUBE NOTE(Performed 09/14/2018) * LAPAROSCOPIC SALPINGECTOMY AND/OR OOPHORECTOMY(Performed 09/14/2018) Performed for Diagnosis unknown * BLOOD TYPE VERIFICATION(Performed 09/14/2018) * XR CHEST 2VW(Performed 09/09/2018) Performed for Pre-op testing * EKG 12-LEAD(Performed 09/09/2018) Performed for Pre-op testing * TYPE + SCREEN PANEL(Performed 09/09/2018) Performed for Pre-op testing * COMPREHENSIVE METABOLIC PANEL(Performed 09/09/2018) Performed for Pre-op testing * CBC W AUTO DIFFERENTIAL(Performed 09/09/2018) Performed for Pre-op testing * HELICOBACTER PYLORI UREASE (STL)(Performed 05/14/2018) Performed for Diagnosis unknown * COLONOSCOPY SCREEN(Performed 05/14/2018) * ESOPHAGOGASTRODUODENOSCOPY (EGD) DIAGNOSTIC(Performed 05/14/2018) * GLUCOSE - POINT OF CARE(Performed 04/29/2018) * COMPREHENSIVE METABOLIC PANEL(Performed 04/28/2018) * CBC W AUTO DIFFERENTIAL(Performed 04/28/2018) * ENDOTRACHEAL TUBE NOTE(Performed 04/27/2018) * LAPAROSCOPY DIAGNOSTIC(Performed 04/27/2018) * TYPE + SCREEN PANEL(Performed 04/27/2018) * PT-INR(Performed 04/27/2018) * COMPREHENSIVE METABOLIC PANEL(Performed 04/27/2018) * CBC W AUTO DIFFERENTIAL(Performed 04/27/2018) * ZINC BLOOD(Performed 01/18/2018) Performed for Bariatric surgery status, Morbid obesity (HCC), BMI 31.0- 31.9,adult, Vitamin D deficiency, Vitamin deficiency, Intestinal malabsorption, unspecified type (HCC) * VITAMIN D 25-HYDROXY(Performed 01/18/2018) Performed for Bariatric surgery status, Morbid obesity (HCC), BMI 31.0- 31.9,adult, Vitamin D deficiency, Vitamin deficiency, Intestinal malabsorption, unspecified type (HCC) * VITAMIN B12(Performed 01/18/2018) Performed for Bariatric surgery status, Morbid obesity (HCC), BMI 31.0- 31.9,adult, Vitamin D deficiency, Vitamin deficiency, Intestinal malabsorption, unspecified type (HCC) * VITAMIN B1(Performed 01/18/2018) Performed for Bariatric surgery status, Morbid obesity (HCC), BMI 31.0- 31.9,adult, Vitamin D deficiency, Vitamin deficiency, Intestinal malabsorption, unspecified type (HCC) * PTH INTACT(Performed 01/18/2018) Performed for Bariatric surgery status, Morbid obesity (HCC), BMI 31.0- 31.9,adult, Vitamin D deficiency, Vitamin deficiency, Intestinal malabsorption, unspecified type (HCC) * MAGNESIUM BLOOD(Performed 01/18/2018) Performed for Bariatric surgery status, Morbid obesity (HCC), BMI 31.0- 31.9,adult, Vitamin D deficiency, Vitamin deficiency, Intestinal malabsorption, unspecified type (HCC) * IRON BLOOD(Performed 01/18/2018) Performed for Bariatric surgery status, Morbid obesity (HCC), BMI 31.0- 31.9,adult, Vitamin D deficiency, Vitamin deficiency, Intestinal malabsorption, unspecified type (HCC) * FOLATE(Performed 01/18/2018) Performed for Bariatric surgery status, Morbid obesity (HCC), BMI 31.0- 31.9,adult, Vitamin D deficiency, Vitamin deficiency, Intestinal malabsorption, unspecified type (HCC) * FERRITIN(Performed 01/18/2018) Performed for Bariatric surgery status, Morbid obesity (HCC), BMI 31.0- 31.9,adult, Vitamin D deficiency, Vitamin deficiency, Intestinal malabsorption, unspecified type (HCC) * COMPREHENSIVE METABOLIC PANEL(Performed 01/18/2018) Performed for Bariatric surgery status, Morbid obesity (HCC), BMI 31.0- 31.9,adult, Vitamin D deficiency, Vitamin deficiency, Intestinal malabsorption, unspecified type (HCC) * CBC W AUTO DIFFERENTIAL(Performed 01/18/2018) Performed for Bariatric surgery status, Morbid obesity (HCC), BMI 31.0- 31.9,adult, Vitamin D deficiency, Vitamin deficiency, Intestinal malabsorption, unspecified type (HCC) * IRON + TIBC PANEL(Performed 09/17/2017) * CT ABDOMEN PELVIS W CONTRAST(Performed 08/05/2017) Performed for History of gastric bypass, Abdominal pain, LUQ (left upper quadrant) * ESOPHAGOGASTRODUODENOSCOPY (EGD) DIAGNOSTIC(Performed 07/31/2017) * ZINC BLOOD(Performed 07/27/2017) Performed for Bariatric surgery status, Class 2 obesity with body mass index (BMI) of 35.0 to 35.9 in adult, unspecified obesity type, unspecified whether serious comorbidity present, Vitamin deficiency, Vitamin D deficiency, Intestinal malabsorption, unspecified type (HCC), Epigastric abdominal pain * VITAMIN D 25-HYDROXY(Performed 07/27/2017) Performed for Bariatric surgery status, Class 2 obesity with body mass index (BMI) of 35.0 to 35.9 in adult, unspecified obesity type, unspecified whether serious comorbidity present, Vitamin deficiency, Vitamin D deficiency, Intestinal malabsorption, unspecified type (HCC), Epigastric abdominal pain * VITAMIN B12(Performed 07/27/2017) Performed for Bariatric surgery status, Class 2 obesity with body mass index (BMI) of 35.0 to 35.9 in adult, unspecified obesity type, unspecified whether serious comorbidity present, Vitamin deficiency, Vitamin D deficiency, Intestinal malabsorption, unspecified type (HCC), Epigastric abdominal pain * VITAMIN B1(Performed 07/27/2017) Performed for Bariatric surgery status, Class 2 obesity with body mass index (BMI) of 35.0 to 35.9 in adult, unspecified obesity type, unspecified whether serious comorbidity present, Vitamin deficiency, Vitamin D deficiency, Intestinal malabsorption, unspecified type (HCC), Epigastric abdominal pain * PTH INTACT(Performed 07/27/2017) Performed for Bariatric surgery status, Class 2 obesity with body mass index (BMI) of 35.0 to 35.9 in adult, unspecified obesity type, unspecified whether serious comorbidity present, Vitamin deficiency, Vitamin D deficiency, Intestinal malabsorption, unspecified type (HCC), Epigastric abdominal pain * MAGNESIUM BLOOD(Performed 07/27/2017) Performed for Bariatric surgery status, Class 2 obesity with body mass index (BMI) of 35.0 to 35.9 in adult, unspecified obesity type, unspecified whether serious comorbidity present, Vitamin deficiency, Vitamin D deficiency, Intestinal malabsorption, unspecified type (HCC), Epigastric abdominal pain * IRON BLOOD(Performed 07/27/2017) Performed for Bariatric surgery status, Class 2 obesity with body mass index (BMI) of 35.0 to 35.9 in adult, unspecified obesity type, unspecified whether serious comorbidity present, Vitamin deficiency, Vitamin D deficiency, Intestinal malabsorption, unspecified type (HCC), Epigastric abdominal pain * FOLATE(Performed 07/27/2017) Performed for Bariatric surgery status, Class 2 obesity with body mass index (BMI) of 35.0 to 35.9 in adult, unspecified obesity type, unspecified whether serious comorbidity present, Vitamin deficiency, Vitamin D deficiency, Intestinal malabsorption, unspecified type (HCC), Epigastric abdominal pain * FERRITIN(Performed 07/27/2017) Performed for Bariatric surgery status, Class 2 obesity with body mass index (BMI) of 35.0 to 35.9 in adult, unspecified obesity type, unspecified whether serious comorbidity present, Vitamin deficiency, Vitamin D deficiency, Intestinal malabsorption, unspecified type (HCC), Epigastric abdominal pain * COMPREHENSIVE METABOLIC PANEL(Performed 07/27/2017) Performed for Bariatric surgery status, Class 2 obesity with body mass index (BMI) of 35.0 to 35.9 in adult, unspecified obesity type, unspecified whether serious comorbidity present, Vitamin deficiency, Vitamin D deficiency, Intestinal malabsorption, unspecified type (HCC), Epigastric abdominal pain * CBC W AUTO DIFFERENTIAL(Performed 07/27/2017) Performed for Bariatric surgery status, Class 2 obesity with body mass index (BMI) of 35.0 to 35.9 in adult, unspecified obesity type, unspecified whether serious comorbidity present, Vitamin deficiency, Vitamin D deficiency, Intestinal malabsorption, unspecified type (HCC), Epigastric abdominal pain * LAB RESULTS ORDER(Performed 04/07/2017) * ESOPHAGOGASTRODUODENOSCOPY (EGD) DIAGNOSTIC(Performed 02/12/2017) * LAB(Performed 02/11/2017) * URINALYSIS W/MICROSCOPIC NO CULTURE(Performed 02/11/2017) * CT ABDOMEN PELVIS W CONTRAST(Performed 02/11/2017) * CARDIAC EKG ORDER(Performed 01/26/2017) * CT ABDOMEN PELVIS W CONTRAST(Performed 01/21/2017) Performed for Other chest pain * CT ANGIO CHEST PULM EMBOLISM(Performed 01/21/2017) Performed for Other chest pain * TROPONIN I(Performed 01/21/2017) * XR CHEST 1VW PORTABLE(Performed 01/21/2017) Performed for Other chest pain * PHOSPHORUS BLOOD(Performed 01/21/2017) * MAGNESIUM BLOOD(Performed 01/21/2017) * COMPREHENSIVE METABOLIC PANEL(Performed 01/21/2017) * CBC W AUTO DIFFERENTIAL(Performed 01/21/2017) * TROPONIN I(Performed 01/21/2017) * EKG 12-LEAD(Performed 01/21/2017) Performed for Other chest pain * CARDIAC EKG ORDER(Performed 01/20/2017) * CARDIAC ECHOCARDIOGRAM COMPLETE ORDER(Performed 01/20/2017) * XR HIP RIGHT 2VW OR MORE(Performed 01/18/2017) Performed for Right leg pain * XR FEMUR RIGHT 2VW(Performed 01/18/2017) Performed for Right leg pain * MRI LUMBAR SPINE WO CONTRAST(Performed 01/18/2017) Performed for Lumbar pain with radiation down right leg * XR LUMBAR SP FLEX EXT 2 OR 3VW(Performed 01/18/2017) Performed for Lumbar pain with radiation down right leg * GLUCOSE - POINT OF CARE(Performed 01/18/2017) * GLUCOSE - POINT OF CARE(Performed 01/17/2017) * BASIC METABOLIC PANEL (CALCIUM TOTAL)(Performed 01/17/2017) * GLUCOSE - POINT OF CARE(Performed 01/17/2017) * GLUCOSE - POINT OF CARE(Performed 01/16/2017) * GLUCOSE - POINT OF CARE(Performed 01/16/2017) * GLUCOSE - POINT OF CARE(Performed 01/16/2017) * BASIC METABOLIC PANEL (CALCIUM TOTAL)(Performed 01/16/2017) * CBC W AUTO DIFFERENTIAL(Performed 01/16/2017) * GLUCOSE - POINT OF CARE(Performed 01/16/2017) * GLUCOSE - POINT OF CARE(Performed 01/16/2017) * GLUCOSE - POINT OF CARE(Performed 01/15/2017) * FL FLUORO UPPER GI TRACT + KUB(Performed 01/15/2017) Performed for S/P gastric bypass * VITAMIN D 25-HYDROXY(Performed 01/15/2017) * BASIC METABOLIC PANEL (CALCIUM TOTAL)(Performed 01/15/2017) * CBC W AUTO DIFFERENTIAL(Performed 01/15/2017) * GLUCOSE - POINT OF CARE(Performed 01/15/2017) * GLUCOSE - POINT OF CARE(Performed 01/14/2017) * GLUCOSE - POINT OF CARE(Performed 01/14/2017) * ENDOTRACHEAL TUBE NOTE(Performed 01/14/2017) * LAPAROSCOPIC GASTRIC BYPASS(Performed 01/14/2017) * POTASSIUM BLOOD(Performed 01/14/2017) * VITAMIN B12(Performed 12/24/2016) Performed for Preop examination * VITAMIN B1(Performed 12/24/2016) Performed for Preop examination * CBC W AUTO DIFFERENTIAL(Performed 12/24/2016) Performed for Preop examination * COMPREHENSIVE METABOLIC PANEL(Performed 12/24/2016) Performed for Preop examination * EKG 12-LEAD(Performed 12/24/2016) Performed for Preop examination * SLEEP STUDY(Performed 08/06/2016) * SLEEP STUDY(Performed 06/17/2016) * GLUCOSE - POINT OF CARE(Performed 12/02/2015) * GLUCOSE - POINT OF CARE(Performed 12/02/2015) * GLUCOSE - POINT OF CARE(Performed 12/01/2015) * GLUCOSE - POINT OF CARE(Performed 12/01/2015) * FL FLUORO UPPER GI TRACT + KUB(Performed 12/01/2015) Performed for Complication of gastric banding * GLUCOSE - POINT OF CARE(Performed 12/01/2015) * LAPAROSCOPIC REMOVAL/REPLACEMENT GASTRIC BAND(Performed 11/30/2015) * BASIC METABOLIC PANEL (CALCIUM TOTAL)(Performed 11/30/2015) * EKG 12-LEAD(Performed 11/30/2015) Performed for Preop examination * FL FLUORO UPPER GI TRACT + KUB(Performed 10/12/2015) Performed for Gastroesophageal reflux disease, esophagitis presence not specified, Abdominal pain, LUQ (left upper quadrant) * IMAGING/RADIOLOGY/XRAY RESULTS ORDER(Performed 10/19/2012) * IMAGING/RADIOLOGY/XRAY RESULTS ORDER(Performed 10/19/2012) * CT ABDOMEN PELVIS W CONTRAST(Performed 04/24/2011) Performed for Abdominal pain, unspecified site * CREATININE BLOOD - POINT OF CARE (IP)(Performed 04/24/2011) Results * VITAMIN K1 (06/03/2024 2:17 PM DENTAL INSURANCE COORDINATOR) Only the most recent of7 resultswithin the time period is included. Vitamin K1 0.56 0.10 - 2.20 ng/mL [facility] ACCOUNT BILL Blood BLOOD SPECIMEN / Unknown 06/03/2024 2:17 PM DENTAL INSURANCE COORDINATOR 06/03/2024 Narrative [facility] ACCOUNT BILL - 06/07/2024 12:07 PM DENTAL INSURANCE COORDINATOR Test(s) 567398-Zrfjxys K1 was developed and its performance characteristics determined by [facility]. It has not been cleared or approved by the Food and Drug Administration. Performed at: 01 - [facility] [id number] [employer] Manager: Araceli Cotter MD, Phone: [phone] Blanca Kamara ROOM SERVICE FOOD SERVICE ATTENDANT-BENZOL OPERATOR LAB - CHEMIS TRY ORDERABLES [facility] ACCOUNT BILL [address] [place] [address] * ZINC BLOOD (06/03/2024 2:17 PM DENTAL INSURANCE COORDINATOR) Only the most recent of9 resultswithin the time period is included. Zinc, Plasma or Serum 68 44 - 115 ug/dL [facility] ACCOUNT BILL Comment:Detection Limit = 5 Blood BLOOD SPECIMEN / Unknown 06/03/2024 2:17 PM DENTAL INSURANCE COORDINATOR 06/03/2024 Narrative [facility] ACCOUNT BILL - 06/07/2024 6:06 AM DENTAL INSURANCE COORDINATOR Test(s) 573605-Clpx, Plasma or Serum was developed and its performance characteristics determined by [facility]. It has not been cleared or approved by the Food and Drug Administration. Performed at: - [address] [id number] [employer] Manager: Araceli Cotter MD, Phone: [phone] Blanca MOSS LAB - CHEMIS TRY ORDERABLES [facility] ACCOUNT BILL [address] [place] [address] * VITAMIN A (06/03/2024 2:17 PM DENTAL INSURANCE COORDINATOR) Only the most recent of7 resultswithin the time period is included. Vitamin A 33.7 20.1 - 62.0 ug/dL [facility] ACCOUNT BILL Comment: Reference intervals for vitamin A determined from [facility] internal studies. Individuals with vitamin A less than 20 ug/dL are considered vitamin A deficient and those with serum concentrations less than 10 ug/dL are considered severely deficient. This test was developed and its performance characteristics determined by [facility]. It has not been cleared or approved by the Food and Drug Administration. Blood BLOOD SPECIMEN / Unknown 06/03/2024 2:17 PM DENTAL INSURANCE COORDINATOR 06/03/2024 Narrative [facility] ACCOUNT BILL - 06/11/2024 12:06 PM DENTAL INSURANCE COORDINATOR Performed at: - [address] [id number] [employer] Manager: Araceli Cotter MD, Phone: [phone] Blanca A Anh ROOM SERVICE FOOD SERVICE ATTENDANT-BENZOL OPERATOR LAB - CHEMIS TRY ORDERABLES [facility] ACCOUNT BILL [address] [place] [address] * (ABNORMAL) VITAMIN E (06/03/2024 2:17 PM DENTAL INSURANCE COORDINATOR) Only the most recent of7 resultswithin the time period is included. Vitamin E Alpha Tocopherol 8.1 7.0 - 25.1 mg/L [facility] ACCOUNT BILL Vitamin E Gamma Tocopherol 0.1(L) 0.5 - 5.5 mg/L [facility] ACCOUNT BILL Comment: Reference intervals for alpha and gamma-tocopherol determined from National Health and Nutrition Examination Survey, 9708-4549. Individuals with alpha-tocopherol levels less than 5.0 mg/L are considered vitamin E deficient. Blood BLOOD SPECIMEN / Unknown 06/03/2024 2:17 PM DENTAL INSURANCE COORDINATOR 06/03/2024 Narrative [facility] ACCOUNT BILL - 06/11/2024 12:06 PM DENTAL INSURANCE COORDINATOR Test(s) 051237-Vheffzo E(Alpha Tocopherol); 518148- Vitamin E(Gamma Tocopherol) was developed and its performance characteristics determined by [facility] It has not been cleared or approved by the Food and Drug Administration. Performed at: 01 - [address] [id number] [employer] Manager: Araceli Cotter MD, Phone: [phone] Blanca Kamara APRN-BENZOL OPERATOR LAB - CHEMIS TRY ORDERABLES [facility] ACCOUNT BILL [address] [place] [address] * VITAMIN B1 (06/03/2024 2:17 PM DENTAL INSURANCE COORDINATOR) Only the most recent of10 resultswithin the time period is included. Vitamin B1 Whole Blood 174.0 66.5 - 200.0 nmol/L [facility] ACCOUNT BILL Blood BLOOD SPECIMEN / Unknown 06/03/2024 2:17 PM DENTAL INSURANCE COORDINATOR 06/03/2024 Narrative [facility] ACCOUNT BILL - 06/07/2024 2:07 PM DENTAL INSURANCE COORDINATOR Test(s) 138776-Pha. B1, Whole Blood was developed and its performance characteristics determined by [facility]. It has not been cleared or approved by the Food and Drug Administration. Performed at: - [facility] [id number] [employer] Manager: Araceli Cotter MD, Phone: [phone] Blanca Kamara ROOM SERVICE FOOD SERVICE ATTENDANT-BENZOL OPERATOR LAB - CHEMIS TRY ORDERABLES Performing Organization Address City/[facility]/ZIP Co de Phone Number [facility] ACCOUNT BILL [address] [place] [address] * PTH INTACT (06/03/2024 2:17 PM DENTAL INSURANCE COORDINATOR) Only the most recent of9 resultswithin the time period is included. PTH Intact 37 15 - 65 pg/mL [facility] ACCOUNT BILL Blood BLOOD SPECIMEN / Unknown 06/03/2024 2:17 PM DENTAL INSURANCE COORDINATOR 06/03/2024 Narrative [facility] ACCOUNT BILL - 06/05/2024 12:05 PM DENTAL INSURANCE COORDINATOR Performed at: - [facility] [id number] [employer] Manager: Gagandeep Gamble PhD, Phone: [phone] Blanca Kamara ROOM SERVICE FOOD SERVICE ATTENDANT-BENZOL OPERATOR LAB - CHEMIS TRY ORDERABLES Performing Organization Address [facility] [[email or web address]] Co de Phone Number [facility] ACCOUNT BILL [address] [place] [address] * COPPER BLOOD (06/03/2024 2:17 PM DENTAL INSURANCE COORDINATOR) Only the most recent of6 resultswithin the time period is included. Copper 91 80 - 158 ug/dL [facility] ACCOUNT BILL Comment:Detection Limit = 5 Blood BLOOD SPECIMEN / Unknown 06/03/2024 2:17 PM DENTAL INSURANCE COORDINATOR 06/03/2024 Narrative [facility] ACCOUNT BILL - 06/07/2024 6:06 AM DENTAL INSURANCE COORDINATOR Test(s) 707665-Ejxjmp, Serum or Plasma was developed and its performance characteristics determined by [facility]. It has not been cleared or approved by the Food and Drug Administration. Performed at: - [facility] [address] [id number] [employer] Manager: Araceli Cotter MD, Phone: [phone] Blanca Kamara APRN-BENZOL OPERATOR LAB - CHEMIS TRY ORDERABLES Performing Organization Address [facility] de Phone Number [facility] ACCOUNT BILL [address] [place] [address] * VITAMIN D 25-HYDROXY (06/03/2024 2:17 PM DENTAL INSURANCE COORDINATOR) Only the most recent of9 resultswithin the time period is included. Vitamin D, 25 Hydroxy 44.9 30.0 - 100.0 ng/mL [facility] ACCOUNT BILL Comment: Vitamin D deficiency has been defined by the [place] of [employer] and an Endocrine Society practice guideline as a level of serum 25-OH vitamin D less than 20 ng/mL (1,2). The Endocrine Society went on to further define vitamin D insufficiency as a level between 21 and 29 ng/mL (2). 1. IOM ([place] of [employer]). 2010. Dietary reference intakes for calcium and D. [place]: The National Academies Press. 2. Keren MF, Michael MORE, Sunitha FINLEY, et al. Evaluation, treatment, and prevention of vitamin D deficiency: an Endocrine Society clinical practice guideline. JCEM. 2011 Dec; 96(7):1911-30. Blood BLOOD SPECIMEN / Unknown 06/03/2024 2:17 PM DENTAL INSURANCE COORDINATOR 06/03/2024 Narrative [facility] ACCOUNT BILL - 06/04/2024 7:07 AM DENTAL INSURANCE COORDINATOR Performed at: 01 - [facility] [address] [id number] [employer] Manager: Gagandeep Gamble PhD, Phone: [phone] Blanca MOSS LAB - CHEMIS TRY ORDERABLES Performing Organization Address [facility] [[email or web address]] Co de Phone Number [facility] ACCOUNT BILL [address] [place] [address] * (ABNORMAL) CBC W/O DIFFERENTIAL (06/03/2024 2:17 PM DENTAL INSURANCE COORDINATOR) Only the most recent of24 resultswithin the time period is included. WBC 5.8 3.4 - 10.8 x10E3/uL [facility] [...] BLOOD SPECIMEN / Unknown 06/03/2024 2:17 PM DENTAL INSURANCE COORDINATOR 06/03/2024 Narrative [facility] ACCOUNT BILL - 06/04/2024 7:07 AM DENTAL INSURANCE COORDINATOR Performed at: 01 - [address] [id number] [employer] Manager: Gagandeep Gamble PhD, Phone: [phone] Blanca Kamara APRN-BENZOL OPERATOR LAB - HEMATO LOGY ORDERABLES [facility] ACCOUNT BILL [address] [place] [address] * (ABNORMAL) COMPREHENSIVE METABOLIC PANEL (06/03/2024 2:17 PM DENTAL INSURANCE COORDINATOR) Only the most recent of23 resultswithin the time period is included. Pathologist [facility] Glucose 84 70 - 99 mg/dL [facility] [...] BLOOD SPECIMEN / Unknown 06/03/2024 2:17 PM DENTAL INSURANCE COORDINATOR 06/03/2024 Narrative [facility] ACCOUNT BILL - 06/04/2024 8:09 AM DENTAL INSURANCE COORDINATOR Performed at: [address] [place] [id number] [employer] Manager: Gagandeep Gamble PhD, Phone: [phone] Blanca Kamara APRN-BENZOL OPERATOR LAB - CHEMIS TRY ORDERABLES Performing Organization Address [facility] de Phone Number [facility] ACCOUNT BILL [address] [place] [address] * MAGNESIUM BLOOD (06/03/2024 2:17 PM DENTAL INSURANCE COORDINATOR) Only the most recent of25 resultswithin the time period is included. Magnesium 1.9 1.6 - 2.3 mg/dL [facility] ACCOUNT BILL Blood BLOOD SPECIMEN / Unknown 06/03/2024 2:17 PM DENTAL INSURANCE COORDINATOR 06/03/2024 Narrative [facility] ACCOUNT BILL - 06/04/2024 8:09 AM DENTAL INSURANCE COORDINATOR Performed at: [address] [place] [id number] [employer] Manager: Gagandeep Gamble PhD, Phone: [phone] Blanca Kamara APRN-BENZOL OPERATOR LAB - CHEMIS TRY ORDERABLES Performing Organization Address City/[facility] [[email or web address] Co de Phone Number [facility] ACCOUNT BILL [address] [place] [address] * IRON + TIBC PANEL (06/03/2024 2:17 PM DENTAL INSURANCE COORDINATOR) Only the most recent of7 resultswithin the time period is included. TIBC 283 250 - 450 ug/dL [facility] ACCOUNT BILL UIBC 222 131 - 425 ug/dL [facility] ACCOUNT BILL Iron 61 27 - 159 ug/dL [facility] ACCOUNT BILL Iron Saturation 22 15 - 55 % [facility] ACCOUNT BILL Blood BLOOD SPECIMEN / Unknown 06/03/2024 2:17 PM DENTAL INSURANCE COORDINATOR 06/03/2024 Narrative [facility] ACCOUNT BILL - 06/04/2024 8:09 AM DENTAL INSURANCE COORDINATOR Performed at: - [address] [id number] [employer] Manager: Gagandeep Gamble PhD, Phone: [phone] Blanca Kamara APRN-[employer] LAB - CHEMIS TRY ORDERABLES Performing Organization Address [facility] de Phone Number [facility] ACCOUNT BILL [address] [place] [address] * FOLATE (06/03/2024 2:17 PM DENTAL INSURANCE COORDINATOR) Only the most recent of8 resultswithin the time period is included. Pathologist [facility] Folate >20.0 >3.0 ng/mL [facility] ACCOUNT BILL Comment: A serum folate concentration of less than 3.1 ng/mL is considered to represent clinical deficiency. Blood BLOOD SPECIMEN / Unknown 06/03/2024 2:17 PM DENTAL INSURANCE COORDINATOR 06/03/2024 Narrative [facility] ACCOUNT BILL - 06/04/2024 9:35 AM DENTAL INSURANCE COORDINATOR Performed at: [address] [id number] [employer] Manager: Gagandeep Gamble PhD, Phone: [phone] Blanca Kamara APRN-BENZOL OPERATOR LAB - CHEMIS TRY ORDERABLES Performing Organization Address [facility] de Phone Number [facility] ACCOUNT BILL [address] [place] [address] * VITAMIN B12 (06/03/2024 2:17 PM DENTAL INSURANCE COORDINATOR) Only the most recent of10 resultswithin the time period is included. Vitamin B12 1,045 232 - 1,245 pg/mL [facility] ACCOUNT BILL Blood BLOOD SPECIMEN / Unknown 06/03/2024 2:17 PM DENTAL INSURANCE COORDINATOR 06/03/2024 Narrative [facility] ACCOUNT BILL - 06/04/2024 9:35 AM DENTAL INSURANCE COORDINATOR Performed at: - [facility] [id number] [employer] Manager: Gagandeep Gamble PhD, Phone: [phone] Blanca Kamara APRN-[employer] LAB - CHEMIS TRY ORDERABLES Performing Organization Address [facility] [[email or web address]] Co de Phone Number [facility] ACCOUNT BILL [address] [place] [address] * FERRITIN (06/03/2024 2:17 PM DENTAL INSURANCE COORDINATOR) Only the most recent of11 resultswithin the time period is included. Ferritin 50 15 - 150 ng/mL [facility] ACCOUNT BILL Blood BLOOD SPECIMEN / Unknown 06/03/2024 2:17 PM DENTAL INSURANCE COORDINATOR 06/03/2024 Narrative [facility] ACCOUNT BILL - 06/04/2024 8:09 AM DENTAL INSURANCE COORDINATOR Performed at: [address] [place] [id number] [employer] Manager: Gagandeep Gamble PhD, Phone: [phone] Blanca Kamara APRNNeptune [employer] LAB - CHEMIS TRY ORDERABLES Performing Organization Address City/[facility] [[email or web address]] Co de Phone Number [facility] ACCOUNT BILL [address] [place] [address] * CT ABDOMEN AND PELVIS WITH IV CONTRAST (12/16/2023 12:27 PM CDT) Only the most recent of8 resultswithin the time period is included. Anatomical Region Laterality Modality Abdomen, Pelvis Computed Tomogra phy 12/16/2023 1:56 PM CDT Impressions 12/16/2023 1:57 PM CDT IMPRESSION: Status post gastric bypass. No evidence of leak or obstruction. Rectum distended with stool. Correlate for constipation. No bowel obstruction. > Interpreting Provider: Aristides Garcia MD on 12/16/2023 1:57 PM Narrative 12/16/2023 1:[address] Abdomen With Contrast CT Pelvis With Contrast Clinical Indication: Abdominal pain. Technique: Axial CT images from the lung bases through the pubic symphysis were obtained following intravenous administration of Isovue-370, 80 cc. One or more of the following CT dose reduction techniques were utilized: *Automated exposure control (AEC) *Adjustment of mA and/or kV according to patient size -Use of iterative reconstruction technique -CT scan done according to ALARA or ALARA/IMAGE GENTLY Findings: Imaged lungs are clear., The liver, spleen, adrenal glands, kidneys, and pancreas are within normal limits. A ductal dilatation following cholecystectomy, a common finding. Status post gastric bypass. No evidence of leak or obstruction. The rectum is distended with stool. No colonic wall thickening. Small bowel loops are unremarkable and nondilated. No evidence of appendicitis. Uterus absent. No adnexal mass. Urinary bladder unremarkable. Bilateral pars defects L5 with grade 1 anterolisthesis and disc disease L5-S1. Procedure Note Aristides Garcia MD - 12/16/[address] CT [address] With Contrast CT Pelvis With Contrast Clinical Indication: Abdominal pain. Technique: Axial CT images from the lung bases through the pubicsymphysis were obtained following intravenous administration of Isovue-370, 80 cc. One or more of the following CT dose reduction techniques were utilized: *Automated exposure control (AEC) *Adjustment of mA and/or kV according to patient size -Use of iterative reconstruction technique -CT scan done according to ALARA or ALARA/IMAGE GENTLY Findings: Imaged lungs are clear., The liver, spleen, adrenal glands, kidneys, and pancreas are within normal limits. A ductal dilatation following cholecystectomy, a common finding. Status post gastric bypass. No evidence of leak or obstruction. The rectum is distended with stool. No colonic wall thickening. Smallbowel loops are unremarkable and nondilated. No evidence of appendicitis. Uterus absent. No adnexal mass. Urinary bladder unremarkable. Bilateral pars defects L5 with grade 1 anterolisthesis and disc disease L5-S1. IMPRESSION: Status post gastric bypass. No evidence of leak or obstruction. Rectum distended with stool. Correlate for constipation. No bowel obstruction. > Interpreting Provider: Aristides Garcia MD on 12/16/2023 1:57 PM Maricel Disha Cordon ROOM SERVICE FOOD SERVICE ATTENDANT-BENZOL OPERATOR CT ORDERA BLES * HELICOBACTER PYLORI UREASE (STL) (12/14/2023 7:55 AM CDT) Only the most recent of4 resultswithin the time period is included. Helicobacter pylori Urease Initial Negative Negative 12/15/2023 9:45 AM CDT [facility] Helicobacter pylori Urease Final Negative Negative 12/15/2023 9:45 AM CDT [facility] Microbiology GASTRIC ANTRAL BIOPSY SPECIMEN / Unknown 12/14/2023 7:55 AM CDT 12/14/2023 3:23 PM CDT Eduardo Herrera MD LAB - MICROBIOLOGY O RDERABLES [facility] [address] [id number] * EGD (12/14/2023 7:41 AM CDT) Report Endoscopy POC _ Patient Name: Dory Barnes Procedure Date: 12/14/2023 7:41 AM Date of : 1980 Admit Type: Outpatient Age: 43 Gender: Female Attending MD: Eduardo Herrera MD, _ Procedure: Upper GI endoscopy Indications: Epigastric abdominal pain, Assessment following Coy-en-Y gastrojejunostomy Providers: Eduardo Herrera MD (Doctor) Referring MD: Henry Ruiz (Referring MD) Medicines: Propofol per Anesthesia Complications: No immediate complications. _ Estimated Blood Loss: Estimated blood loss: none. Procedure: Pre-Anesthesia Assessment: - Prior to the procedure, a History and Physical was performed, and patient medications and allergies were reviewed. The patient's tolerance of previous anesthesia was also reviewed. The risks and benefits of the procedure and the sedation options and risks were discussed with the patient. All questions were answered, and informed consent was obtained. Prior Anticoagulants: The patient has taken no anticoagulant or antiplatelet agents. ASA Grade Assessment: II - A patient with mild systemic disease. After reviewing the risks and benefits, the patient was deemed in satisfactory condition to undergo the procedure. After obtaining informed consent, the endoscope was passed under direct vision. Throughout the procedure, the patient's blood pressure, pulse, and oxygen saturations were monitored continuously. The was introduced through the mouth, and advanced to the jejunum. The upper GI endoscopy was accomplished without difficulty. The patient tolerated the procedure well. Findings: The examined esophagus was normal. Evidence of a gastric bypass was found. A gastric pouch with a 4 cm length from the GE junction to the gastrojejunal anastomosis was found containing non erosive mucosa. The staple line appeared intact. The gastrojejunal anastomosis was characterized by an intact appearance 20mm. This was traversed. Biopsies were taken with a cold forceps for Helicobacter pylori testing using CLOtest. The examined jejunum was normal. _ Impression: - Normal esophagus. - Gastric bypass with a pouch 4 cm in length and intact staple line. Gastrojejunal anastomosis characterized by an intact appearance 20mm. Biopsied. - Normal examined jejunum. Recommendation: - Await pathology results. - Discharge patient to home. - Resume previous diet. Procedure Code(s): --- Professional --- 85043, Esophagogastroduoden oscopy, flexible, transoral; with biopsy, single or multiple --- Technical --- 64920, Esophagogastroduoden oscopy, flexible, transoral; with biopsy, single or multiple Diagnosis Code(s): --- Professional --- R10.13, Epigastric pain Z09, Encounter for follow-up examination after completed treatment for conditions other than malignant neoplasm Z98.0, Intestinal bypass and anastomosis status --- Technical --- R10.13, Epigastric pain Z09, Encounter for follow-up examination after completed treatment for conditions other than malignant neoplasm Z98.0, Intestinal bypass and anastomosis status CPT copyright 2020 [employer]. All rights reserved. The codes documented in this report are preliminary and upon grader meat review may be revised to meet current compliance requirements. Eduardo Herrera MD 12/14/2023 7:57:37 AM Number of Addenda: 0 Note Initiated On: 12/14/2023 7:41 AM [facility] 12/14/2023 7:41 AM CDT Narrative Procedure Note Eduardo Herrera MD - 12/14/2023 7:58 AM CDT PLAN: F/U NANI bx CT A/P Consider dx laparoscopy Eduardo Herrera MD GI PROCEDURE ORDERAB LES [facility] [place] [address] * FL UGI W SM BOWEL FOLLOW THRU (09/30/2023 2:20 PM CDT) Anatomical Region Laterality Modality Abdomen Radiographic Diana ging 09/30/2023 2:31 PM CDT Impressions 09/30/2023 2:53 PM CDT IMPRESSION: 1. Status post Coy-en-Y gastric bypass surgery. Very tiny hiatal hernia. Otherwise unremarkable. 2. No evidence of a small bowel obstruction. Contrast reaches the colon at 3 hours. > Interpreting Provider: Godfrey Garcia DO on 09/30/2023 2:53 PM Narrative 09/30/2023 2:53 PM CDT PROCEDURE: FL UGI W SM BOWEL FOLLOW THRU DATE/TIME OF EXAM: 09/30/2023 2:29 PM CLINICAL INFORMATION: History of gastric bypass with several hernia repairs. COMPARISON: Upper GI performed 09/02/2023. Small bowel series 05/25/2022. 463 images were obtained including video format. 1 minute 38 seconds of fluoroscopy time. FINDINGS: Esophagus distends normally. No fixed narrowing, mucosal irregularity or annular constricting mass. No generalized esophageal dilation or focal diverticulum. No laryngeal penetration or tracheal aspiration. Small hiatal hernia. Gastroesophageal reflux was not visualized during the examination. Normal appearance of the gastric pouch. There is appropriate emptying via the gastrojejunostomy into the Coy loop. No mucosal irregularity. The Coy loop was not dilated. No fold thickening. Subsequently, sequential abdominal images were obtained of the small bowel. No obvious small bowel dilation or focal thickening. Contrast reaches the right lower quadrant and distal ileum at 3 hours. Only a small portion of the cecum and proximal ascending colon were visualized. Terminal ileum is unremarkable. FLUOROSCOPY DOSE: 24.83 mGy Reference air kerma (ka,r). Procedure Note Godfrey Garcia DO - 09/30/2023 PROCEDURE: FL UGI W SM BOWEL FOLLOW THRU DATE/TIME OF EXAM: 09/30/2023 2:29 PM CLINICAL INFORMATION: History of gastric bypass with several hernia repairs. COMPARISON: Upper GI performed 09/02/2023. Small bowel series 05/25/2022. 463 images were obtained including video format. 1 minute 38 seconds of fluoroscopy time. FINDINGS: Esophagus distends normally. No fixed narrowing, mucosal irregularity or annular constricting mass. No generalized esophageal dilation or focal diverticulum. No laryngeal penetration or tracheal aspiration. Small hiatal hernia. Gastroesophageal reflux was not visualized duringthe examination. Normal appearance of the gastric pouch. There is appropriate emptyingvia the gastrojejunostomy into the Coy loop. No mucosal irregularity. TheRoux loop was not dilated. No fold thickening. Subsequently, sequential abdominal images were obtained of the smallbowel. No obvious small bowel dilation or focal thickening. Contrast reachesthe right lower quadrant and distal ileum at 3 hours. Only a small portionof the cecum and proximal ascending colon were visualized. Terminal ileumis unremarkable. FLUOROSCOPY DOSE: 24.83 mGy Reference air kerma (ka,r). IMPRESSION: 1. Status post Coy-en-Y gastric bypass surgery. Very tiny hiatalhernia. Otherwise unremarkable. 2. No evidence of a small bowel obstruction. Contrast reaches the colonat 3 hours. > Interpreting Provider: Godrfey Garcia DO on 09/30/2023 2:53 PM Blanca Kamara ROOM SERVICE FOOD SERVICE ATTENDANT-BENZOL OPERATOR FLUOROSCOPY ORDERABLES * FL UGI SERIES (09/02/2023 12:45 PM DENTAL INSURANCE COORDINATOR) Only the most recent of3 resultswithin the time period is included. Anatomical Region Laterality Modality Abdomen Radiographic Diana ging 09/02/2023 3:34 PM DENTAL INSURANCE COORDINATOR Impressions 09/02/2023 4:04 PM DENTAL INSURANCE COORDINATOR IMPRESSION: Hiatal hernia slides from about 9 mm to about 1.5 cm with Valsalva. No obstruction or intravasation > Interpreting Provider: Carlos Morocho MD on 09/02/2023 4:04 PM Narrative 09/02/2023 4:04 PM DENTAL INSURANCE COORDINATOR PROCEDURE: FL UGI SERIES DATE/TIME OF EXAM: 09/02/2023 12:49 PM CLINICAL INFORMATION: None relevant/not provided if blank. Indication: K21.9: Gastro-esophageal reflux disease without esophagitis Additional History: Bilateral hernia. COMPARISON: May 29, 2022 TECHNIQUE: Patient ingested effervescent crystals. Fluoroscopic spot and cine images were obtained during the procedure. Patient subsequently drank thick and thin barium in various positions. FINDINGS: When upright the esophagus drains readily into a small hiatal hernia. The hiatal hernia while upright measured about 9 mm. The gastric pouch drains readily into normal caliber Coy loop. Drinking esophagography shows the hernia extends cephalad about 15 mm. I could not induce reflux. There is no stricture or obstruction. Mild fecal retention. Post cholecystectomy. FLUOROSCOPY DOSE: 4.14 mGy Reference air kerma (ka,r). Procedure Note Carlos Morocho MD - 09/02/2023 PROCEDURE: FL UGI SERIES DATE/TIME OF EXAM: 09/02/2023 12:49 PM CLINICAL INFORMATION: None relevant/not provided if blank. Indication: K21.9: Gastro-esophageal reflux disease without esophagitis Additional History: Bilateral hernia. COMPARISON: May 29, 2022 TECHNIQUE: Patient ingested effervescent crystals. Fluoroscopic spot and cineimages were obtained during the procedure. Patient subsequently drank thickand thin barium in various positions. FINDINGS: When upright the esophagus drains readily into a small hiatal hernia.The hiatal hernia while upright measured about 9 mm. The gastric pouchdrains readily into normal caliber Coy loop. Drinking esophagography shows the hernia extends cephalad about 15 mm. I could not induce reflux. There is no stricture or obstruction. Mildfecal retention. Post cholecystectomy. FLUOROSCOPY DOSE: 4.14 mGy Reference air kerma (ka,r). IMPRESSION: Hiatal hernia slides from about 9 mm to about 1.5 cm with Valsalva. No obstruction or intravasation > Interpreting Provider: Carlos Morocho MD on 09/02/2023 4:04 PM Blanca Kamara ROOM SERVICE FOOD SERVICE ATTENDANT-[facility] FLUOROSCOPY ORDERABLES * CT ANGIO BRAIN (09/01/2023 1:28 PM DENTAL INSURANCE COORDINATOR) Only the most recent of2 resultswithin the time period is included. Anatomical Region Laterality Modality Head Computed Tomogra phy 09/01/2023 1:34 PM DENTAL INSURANCE COORDINATOR Impressions 09/01/2023 1:43 PM DENTAL INSURANCE COORDINATOR IMPRESSION: 1. No acute intracranial hemorrhage. Redemonstration of postoperative changes. 2. Accounting for the beam hardening and streak artifacts from the aneurysm clips, no evidence of a recurrent aneurysm in the right posterior cerebral artery. > Interpreting Provider: Sergo Ernst MD on 09/01/2023 1:43 PM Narrative 09/01/2023 1:43 PM DENTAL INSURANCE COORDINATOR PROCEDURE: CT ANGIO BRAIN, DATE/TIME OF EXAM: 09/01/2023 1:30 PM, LOCATION [facility] INDICATION: I67.1: Cerebral aneurysm ADDITIONAL CLINICAL INFORMATION: Ordering Provider Reason For Exam: Technologist Note: Additional: EXAMINATION: Computed tomographic (CT) angiography of the head without and with contrast TECHNIQUE: CT of the head was performed without contrast according to standard protocol. Then CT angiography of the head was obtained after the uneventful administration of 75 mL Isovue-370 intravenous contrast. Three dimensional postprocessing was performed by the technologist and sent to the workstation for review. COMPARISON: 09/02/2022. 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 An area of encephalomalacia is again noted in the inferior anterior right temporal lobe. A small focus of hyperattenuation is seen in the region of the right caudothalamic groove, unchanged. No acute intracranial hemorrhage or intra- or extra-axial fluid collections are identified. The ventricles are of normal size, shape, and morphology. The basal cisterns are patent. No mass effect or midline shift is seen. The lopez-white matter differentiation is normal. The visualized portions of the orbits, paranasal sinuses, and mastoids appear normal. No acute calvarial fracture is identified. Angiographic findings: Accounting for the beam hardening and streak artifacts from the aneurysm clips, no evidence of a recurrent aneurysm in the right posterior cerebral artery. The distal internal carotid arteries are patent. The anterior cerebral arteries are patent. The middle cerebral arteries are patent. The posterior cerebral arteries are patent. The distal vertebral arteries are patent. The basilar artery is patent patent. No aneurysms, spot sign, or signs of a high flow vascular malformation are identified. Procedure Note Sergo Ernst MD - 09/01/2023 PROCEDURE: CT ANGIO BRAIN, DATE/TIME OF EXAM: 09/01/2023 1:30 PM, LOCATION [facility] INDICATION: I67.1: Cerebral aneurysm ADDITIONAL CLINICAL INFORMATION: Ordering Provider Reason For Exam: Technologist Note: Additional: EXAMINATION: Computed tomographic (CT) angiography of the head withoutand with contrast TECHNIQUE: CT of the head was performed without contrast according to standard protocol. Then CT angiography of the head was obtained afterthe uneventful administration of 75 mL Isovue-370 intravenous contrast.Three dimensional postprocessing was performed by the technologist and sent to the workstation for review. COMPARISON: 09/02/2022. 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 An area of encephalomalacia is again noted in theinferior anterior right temporal lobe. A small focus of hyperattenuation is seenin the region of the right caudothalamic groove, unchanged. No acute intracranial hemorrhage or intra- or extra-axial fluidcollections are identified. The ventricles are of normal size, shape, andmorphology. The basal cisterns are patent. No mass effect or midline shift is seen.The lopez-white matter differentiation is normal. The visualized portions of the orbits, paranasal sinuses, and mastoids appear normal. No acute calvarial fracture is identified. Angiographic findings: Accounting for the beam hardening and streak artifacts from the aneurysm clips, no evidence of a recurrent aneurysm in the right posteriorcerebral artery. The distal internal carotid arteries are patent. The anterior cerebral arteries are patent. The middle cerebral arteries are patent. The posterior cerebral arteries are patent. The distal vertebral arteriesare patent. The basilar artery is patent patent. No aneurysms, spot sign, or signs of a high flow vascular malformation are identified. IMPRESSION: 1. No acute intracranial hemorrhage. Redemonstration of postoperative changes. 2. Accounting for the beam hardening and streak artifacts from theaneurysm clips, no evidence of a recurrent aneurysm in the right posteriorcerebral artery. > Interpreting Provider: Sergo Ernst MD on 09/01/2023 1:43 PM Nicholas Peacock MD CT ORDERABLES * CREATININE - POCT INTERFACED (09/01/2023 1:21 PM DENTAL INSURANCE COORDINATOR) Only the most recent of2 resultswithin the time period is included. Creatinine POCT 0.67 0.30 - 1.30 mg/dL 09/01/2023 1:24 PM DENTAL INSURANCE COORDINATOR [facility] eGFR >90 >=90 mL/min/1.7 3 m2 09/01/2023 1:24 PM DENTAL INSURANCE COORDINATOR [facility] Blood BLOOD SPECIMEN / Unknown 09/01/2023 1:21 PM DENTAL INSURANCE COORDINATOR 09/01/2023 1:24 PM DENTAL INSURANCE COORDINATOR Nicholas Peacock MD LAB - POINT OF CARE ORDERABLES [address] [place] [address], [facility] [phone] * PREALBUMIN (06/16/2023 3:28 PM DENTAL INSURANCE COORDINATOR) Only the most recent of4 resultswithin the time period is included. Prealbumin 21 12 - 34 mg/dL [facility] ACCOUNT BILL Blood BLOOD SPECIMEN / Unknown 06/16/2023 3:28 PM DENTAL INSURANCE COORDINATOR 06/16/2023 Narrative Resulting Agency Comment Lab Testing performed at: [facility] [address] [facility] [phone] Blanca Kamara ROOM SERVICE FOOD SERVICE ATTENDANT-BENZOL OPERATOR LAB - CHEMIS TRY ORDERABLES [facility] ACCOUNT BILL [address] [place] [address] * ETT LINE PERFORMABLE (02/25/2023 2:39 PM CDT) Narrative Casey Huerta APRN-WAFER FABRICATOR - 02/25/2023 2:39 PM CDT Casey Huerta, ROOM SERVICE FOOD SERVICE ATTENDANT-WAFER FABRICATOR 02/25/2023 2:39 PM Endotracheal Tube Placement: Patient Location: OR. Intubation Event Date/Time: 02/25/2023 2:29 PM Procedure: intubation (87600). Procedure Section: Sedation: under general anesthesia. Indications for Airway Management: anesthesia Induction: standard IV Patient Position: sniffing Mask Ventilation: easy with oral airway. Blade Type: Benjamin Blade Size: 2 Laryngoscopy View: grade 1 (full cords) Intubation Adjuncts: stylet Tube: endotracheal tube Placement: oral Tube type: cuff - inflated Tube Size (MM): 7 Depth of Insertion (CM): 22 Measured From: lips Cuff volume (mL): 8 Cuff Inflated With: air Number of Attempts: 1. Placement Verified By: direct visualization, bilateral breath sounds, chest auscultation and CO2 monitor Tube secured with: adhesive tape. Dentition unchanged? Yes Difficult Airway? No. Procedure Start Time: 02/25/2023 2:29 PM. Staff Section Anesthesia Provider: Casey Huerta, ROOM SERVICE FOOD SERVICE ATTENDANT-WAFER FABRICATOR, Performed the procedure Heidy Powell MD GENERAL ANESTHESIA O RDERABLES * CARDIAC RHYTHM STRIP ORDER (06/04/2022 8:57 PM DENTAL INSURANCE COORDINATOR) Only the most recent of2 resultswithin the time period is included. Narrative 06/04/2022 8:57 PM DENTAL INSURANCE COORDINATOR Ordered by an unspecified provider. Scanned Document CARDIAC SERVICES ORD ERABLES * XR ABDOMEN KUB (05/30/2022 11:11 PM DENTAL INSURANCE COORDINATOR) Only the most recent of4 resultswithin the time period is included. Anatomical Region Laterality Modality Abdomen Radiographic Diana ging 05/31/2022 9:53 AM DENTAL INSURANCE COORDINATOR Impressions 05/31/2022 9:53 AM DENTAL INSURANCE COORDINATOR Impression: Normal gas pattern and no free air. > Interpreting Provider: Harley Flor DO on 05/31/2022 9:53 AM Narrative 05/31/2022 9:53 AM DENTAL INSURANCE COORDINATOR Abdomen AP Indication: Abdominal Pain COMPARISON: May 22, 2022 Findings: The bowel gas pattern is normal and no free air is seen. No pathological calcification or mass effect is seen. Enteric contrast is seen throughout the colon. Procedure Note Harley Flor DO - 05/31/2022 Abdomen AP Indication: Abdominal Pain COMPARISON: May 22, 2022 Findings: The bowel gas pattern is normal and no free air is seen. No pathological calcification or mass effect is seen. Enteric contrast isseen throughout the colon. Impression: Normal gas pattern and no free air. > Interpreting Provider: Harley Flor DO on 05/31/2022 9:53 AM Eduardo Herrera MD DIAGNOSTIC IMAGING O RDERABLES * GLUCOSE - POINT OF CARE (05/30/2022 5:07 PM DENTAL INSURANCE COORDINATOR) Only the most recent of26 resultswithin the time period is included. Glucose WB/POC 81 70 - 106 mg/dL 05/30/2022 5:08 PM DENTAL INSURANCE COORDINATOR [facility] Specimen Type Cap Fingerstick 2021 5:08 PM DENTAL INSURANCE COORDINATOR [facility] Blood BLOOD SPECIMEN / Unknown 05/30/2022 5:07 PM DENTAL INSURANCE COORDINATOR 05/30/2022 5:08 PM DENTAL INSURANCE COORDINATOR Ilda Hall MD LAB - POINT OF CARE ORDERABLES Performing Organization Address City/[facility]/ZIP Co de Phone Number [facility] [address] [place], [place] [phone] * (ABNORMAL) BASIC METABOLIC PANEL (CALCIUM TOTAL) (05/29/2022 8:11 AM DENTAL INSURANCE COORDINATOR) Only the most recent of37 resultswithin the time period is included. [facility] Glucose 95 70 - 105 mg/dL 05/29/2022 8:31 AM [facility] Sodium 142 136 - 145 mmol/L 05/29/2022 8:31 AM [facility] Potassium 4.6 3.5 - 5.1 mmol/L 05/29/2022 8:31 AM [facility] Chloride 106 98 - 107 mmol/L 05/29/2022 8:31 AM [facility] CO2 29 23 - 31 mmol/L 05/29/2022 8:31 AM [facility] Calcium 8.6 8.4 - 10.4 mg/dL 05/29/2022 8:31 AM [facility] Anion Gap 7(L) 8 - 18 mmol/L 05/29/2022 8:31 AM [facility] BUN 12 7 - 18.7 mg/dL 05/29/2022 8:31 AM [facility] Creatinine 0.73 0.57 - 1.11 mg/dL 05/29/2022 8:31 AM [facility] eGFR by CKD-EPI >90 >=90 mL/min/1.7 3 m2 05/29/2022 8:31 AM [facility] Blood BLOOD SPECIMEN / Unknown Venipuncture / Unknown 05/29/2022 8:11 AM DENTAL INSURANCE COORDINATOR 05/29/2022 8:15 AM DENTAL INSURANCE COORDINATOR Blanca Kamara ROOM SERVICE FOOD SERVICE ATTENDANT-BENZOL OPERATOR LAB - CHEMIS TRY ORDERABLES Performing Organization Address City/[facility]/ZIP Co de Phone Number [facility] [address] [place] [address] * ETT LINE PERFORMABLE (05/28/2022 4:41 PM DENTAL INSURANCE COORDINATOR) Narrative Ivy Franco APRN-CRNA - 05/28/2022 4:41 PM DENTAL INSURANCE COORDINATOR Ivy Franco APRN-CRNA 05/28/2022 5:00 PM Endotracheal Tube Placement: Patient Location: OR. Intubation Event Date/Time: 05/28/2022 4:41 PM Procedure: intubation (30921). Procedure Section: Sedation: under general anesthesia. Indications for Airway Management: anesthesia Induction: rapid sequence and cricoid pressure Patient Position: supine, ramp/troop pillow and sniffing Mask Ventilation: not attempted. Blade Type: Benjamin Blade Size: 2 Laryngoscopy View: grade 1 (full cords) Intubation Adjuncts: cricoid pressure and stylet Tube: endotracheal tube Placement: oral Tube type: cuff - inflated Tube Size (MM): 7 Depth of Insertion (CM): 22 Measured From: teeth Cuff volume (mL): 10 Cuff Inflated With: air Number of Attempts: 1. Placement Verified By: bilateral breath sounds, chest auscultation and CO2 monitor Tube secured with: adhesive tape. Dentition unchanged? Yes Difficult Airway? No. Procedure Start Time: 05/28/2022 4:41 PM. Staff Section Anesthesia Provider: Ivy Franco APRN-CRNA, Performed the procedure Heidy Powell MD GENERAL ANESTHESIA O RDERABLES * (ABNORMAL) C-REACTIVE PROTEIN (05/27/2022 5:35 AM DENTAL INSURANCE COORDINATOR) C-Reactive Protein 1.01(H) <=0.50 mg/dL 05/27/2022 6:05 AM DENTAL INSURANCE COORDINATOR [facility] Blood BLOOD SPECIMEN / Unknown Venipuncture / Unknown 05/27/2022 5:35 AM DENTAL INSURANCE COORDINATOR 05/27/2022 5:38 AM DENTAL INSURANCE COORDINATOR Bettie Ramirez MD LAB - CHEMISTRY YOLANDE FRAGA [facility] [address] [place] [address] * FL SMALL BOWEL SERIES (05/25/2022 10:17 AM DENTAL INSURANCE COORDINATOR) Anatomical Region Laterality Modality Abdomen Radiographic Diana ging 05/25/2022 10:1 1 AM DENTAL INSURANCE COORDINATOR Impressions 05/25/2022 10:22 AM DENTAL INSURANCE COORDINATOR IMPRESSION: Rapid transit time. Contrast reaches the colon by 20 minutes. > Interpreting Provider: Carlos Morocho MD on 05/25/2022 10:22 AM Narrative 05/25/2022 10:22 AM DENTAL INSURANCE COORDINATOR PROCEDURE: TEMPORARY, DATE/TIME OF EXAM: 05/25/2022 10:11 AM, LOCATION INDICATION: ADDITIONAL CLINICAL INFORMATION: Ordering Provider Reason For Exam: Technologist Note: Additional: Prior bariatric surgery, epigastric pain COMPARISON: CT examination May 21, 2022. Upper gastric intestinal examination December 18, 2021 [employer] Voltage Electrician examination shows post cholecystectomy clips. Fecal retention left colon. 5. 0 minute examination contrast is lobe fairly significantly into normal caliber Coy loop. By 20 minutes contrast has reached the colon consistent with a rapid transit time. By 40 minutes contrast has reached the left colon This examination did not assess the gastric Coy loop anastomosis. Procedure Note Carlos Morocho MD - 05/25/2022 PROCEDURE: TEMPORARY, DATE/TIME OF EXAM: 05/25/2022 10:11 AM, LOCATION INDICATION: ADDITIONAL CLINICAL INFORMATION: Ordering Provider Reason For Exam: Technologist Note: Additional: Prior bariatric surgery, epigastric pain COMPARISON: CT examination May 21, 2022. Upper gastric intestinal examinationJun2021 [employer] Voltage Electrician examination shows post cholecystectomy clips. Fecal retention left colon. 5. 0 minute examination contrast is lobe fairly significantly intonormal caliber Coy loop. By 20 minutes contrast has reached the colonconsistent with a rapid transit time. By 40 minutes contrast has reached the left colon This examination did not assess the gastric Coy loop anastomosis. IMPRESSION: Rapid transit time. Contrast reaches the colon by 20 minutes. > Interpreting Provider: Carlos Morocho MD on 05/25/2022 10:22 AM Eduardo Herrera MD FLUOROSCOPY ORDERABL ES * (ABNORMAL) CBC W AUTO DIFFERENTIAL (05/23/2022 4:26 AM DENTAL INSURANCE COORDINATOR) Only the most recent of17 resultswithin the time period is included. WBC 9.0 4.4 - 10.7 x10E9/L 05/23/2022 4:52 AM [facility] WBC Corrected 05/23/2022 4:52 AM [facility] RBC 4.28 3.80 - 5.20 x10E12/L 05/23/2022 4:52 AM [facility] Hemoglobin 9.2(L) 12.0 - 15.6 gm/dL 05/23/2022 4:52 AM [facility] Hematocrit 32.3(L) 35.9 - 45.5 % 05/23/2022 4:52 AM [facility] MCV 75.5(L) 80.7 - 98.3 fl 05/23/2022 4:52 AM [facility] MCH 21.5(L) 26.7 - 34.0 pg 05/23/2022 4:52 AM [facility] MCHC 28.5(L) 30.8 - 35.9 gm/dL 05/23/2022 4:52 AM [facility] Platelet Count 281 153 - 416 x10E9/L 05/23/2022 4:52 AM [facility] RDW-CV 18.4(H) 12.1 - 14.9 % 05/23/2022 4:52 AM [facility] MPV 10.5 9.4 - 12.9 fl 05/23/2022 4:52 AM [facility] Neutrophils % 57.1 44.0 - 73.0 % 05/23/2022 4:52 AM [facility] Lymphocytes % 32.4 20.0 - 43.0 % 05/23/2022 4:52 AM [facility] Monocytes % 7.0 5.0 - 13.0 % 05/23/2022 4:52 AM [facility] Eosinophils % 2.6 0.0 - 6.0 % 05/23/2022 4:52 AM [facility] Basophils % 0.6 0.0 - 2.0 % 05/23/2022 4:52 AM [facility] Immature Granulocytes 0.3 0 - 1 % 05/23/2022 4:52 AM [facility] Neutrophil Absolute 5.15 2.01 - 7.14 x10E9/L 05/23/2022 4:52 AM [facility] Lymphocytes Absolute 2.92 1.07 - 3.94 x10E9/L 05/23/2022 4:52 AM DENTAL INSURANCE COORDINATOR [facility] Monocytes Absolute 0.63 0.26 - 1.07 x10E9/L 05/23/2022 4:52 AM DENTAL INSURANCE COORDINATOR [facility] Eosinophils Absolute 0.23 0 - 0.47 x10E9/L 05/23/2022 4:52 AM DENTAL INSURANCE COORDINATOR [facility] Basophils Absolute 0.05 0 - 0.08 x10E9/L 05/23/2022 4:52 AM DENTAL INSURANCE COORDINATOR [facility] Immature Granulocytes Absolute 0.03 0.00 - 0.06 x10E9/L 05/23/2022 4:52 AM DENTAL INSURANCE COORDINATOR [facility] nRBC Auto 0 /100 WBC 05/23/2022 4:52 AM DENTAL INSURANCE COORDINATOR [facility] Blood BLOOD SPECIMEN / Unknown Venipuncture / Unknown 05/23/2022 4:26 AM DENTAL INSURANCE COORDINATOR 05/23/2022 4:32 AM DENTAL INSURANCE COORDINATOR Eduardo Herrera MD LAB - HEMATOLOGY ORD ERABLES Performing Organization Address City/[facility]/ZIP Co de Phone Number [facility] [address] [place] [address] * PHOSPHORUS BLOOD (05/23/2022 4:26 AM DENTAL INSURANCE COORDINATOR) Only the most recent of16 resultswithin the time period is included. Pathologist [facility] Phosphorus 4.1 2.3 - 4.7 mg/dL 05/23/2022 5:18 AM DENTAL INSURANCE COORDINATOR [facility] Blood BLOOD SPECIMEN / Unknown Venipuncture / Unknown 05/23/2022 4:26 AM DENTAL INSURANCE COORDINATOR 05/23/2022 4:32 AM DENTAL INSURANCE COORDINATOR Dillon Null MD LAB - CHEMISTRY YOLANDE FRAGA Performing Organization Address City/[facility]/ZIP Co de Phone Number [facility] [address] [place] [address] * (ABNORMAL) URINE MICROSCOPIC ONLY REFLEX TO CULTURE (05/22/2022 7:37 PM DENTAL INSURANCE COORDINATOR) Pathologist [facility] Reflex Status Culture not indicated 05/22/2022 8:13 PM DENTAL INSURANCE COORDINATOR [facility] RBC UA 0-2 0 - 5 # /hpf 05/22/2022 8:13 PM DENTAL INSURANCE COORDINATOR [facility] WBC UA 0-5 0 - 5 # /hpf 05/22/2022 8:13 PM DENTAL INSURANCE COORDINATOR [facility] Bacteria UA Trace(A) None Seen 05/22/2022 8:13 PM DENTAL INSURANCE COORDINATOR [facility] Squamous Epithelial Cells 0-2 0 - 5 /hpf 05/22/2022 8:13 PM DENTAL INSURANCE COORDINATOR [facility] Mucus UA 1+ /LPF 05/22/2022 8:13 PM DENTAL INSURANCE COORDINATOR [facility] Hyaline Casts 0-2 0 - 2 /LPF 05/22/2022 8:13 PM DENTAL INSURANCE COORDINATOR [facility] Urine URINE SPECIMEN OBTAINED BY CLEAN CATCH PROCEDURE / Unknown Collection / Unknown 05/22/2022 7:37 PM DENTAL INSURANCE COORDINATOR 05/22/2022 7:40 PM DENTAL INSURANCE COORDINATOR [facility] - 05/22/2022 8:13 PM DENTAL INSURANCE COORDINATOR Noemi Lorenz ROOM SERVICE FOOD SERVICE ATTENDANT-BENZOL OPERATOR LAB - URINALYSIS ORDERABLES Performing Organization Address City/State/[facility] [[email or web address]] Co de Phone Number [facility] [address] [place] [address] * (ABNORMAL) URINALYSIS REFLEX MICROSCOPIC REFLEX CULTURE (05/22/2022 7:37 PM DENTAL INSURANCE COORDINATOR) Color UA Yellow Straw, Yellow 05/22/2022 8:12 PM DENTAL INSURANCE COORDINATOR [facility] Clarity UA Slt Cloudy(A) Clear 05/22/2022 8:12 PM DENTAL INSURANCE COORDINATOR [facility] Glucose UA Negative Negative 05/22/2022 8:12 PM DENTAL INSURANCE COORDINATOR [facility] Bilirubin UA Negative Negative 05/22/2022 8:12 PM DENTAL INSURANCE COORDINATOR [facility] Ketone UA Negative Negative 05/22/2022 8:12 PM DENTAL INSURANCE COORDINATOR [facility] Specific [place] UA 1.015 1.005 - 1.030 05/22/2022 8:12 PM DENTAL INSURANCE COORDINATOR [facility] Blood UA Negative Negative 05/22/2022 8:12 PM DENTAL INSURANCE COORDINATOR [facility] pH UA 6.0 5.0 - 8.0 pH 05/22/2022 8:12 PM DENTAL INSURANCE COORDINATOR [facility] Protein UA Negative Negative 05/22/2022 8:12 PM DENTAL INSURANCE COORDINATOR [facility] Urobilinogen UA Negative Negative mg/dL 05/22/2022 8:12 PM DENTAL INSURANCE COORDINATOR [facility] Nitrite UA Positive(A) Negative 05/22/2022 8:12 PM DENTAL INSURANCE COORDINATOR [facility] Leukocyte UA Negative Negative 05/22/2022 8:12 PM DENTAL INSURANCE COORDINATOR [facility] Urine Microscopy Urine microscopy to follow 05/22/2022 8:12 PM DENTAL INSURANCE COORDINATOR [facility] Reflex Status Culture to follow 05/22/2022 8:12 PM DENTAL INSURANCE COORDINATOR [facility] Urine URINE SPECIMEN OBTAINED BY CLEAN CATCH PROCEDURE / Unknown Collection / Unknown 05/22/2022 7:37 PM DENTAL INSURANCE COORDINATOR 05/22/2022 7:40 PM DENTAL INSURANCE COORDINATOR Narrative [facility] - 05/22/2022 8:12 PM DENTAL INSURANCE COORDINATOR Noemi Lorenz APRN-BENZOL OPERATOR LAB - URINALYSIS ORDERABLES Performing Organization Address City/State/[facility] [[email or web address]] Co de Phone Number [facility] [address] [place] [address] * (ABNORMAL) CULTURE URINE (05/22/2022 7:37 PM DENTAL INSURANCE COORDINATOR) Culture Urine 50,000-100,000 CFU/mL Klebsiella pneumoniae(A) SG 05/24/2022 6:34 AM DENTAL INSURANCE COORDINATOR [facility] Urine URINE SPECIMEN OBTAINED BY CLEAN CATCH PROCEDURE / Unknown Collection / Unknown 05/22/2022 7:37 PM DENTAL INSURANCE COORDINATOR 05/22/2022 7:40 PM DENTAL INSURANCE COORDINATOR Narrative [facility] - 05/24/2022 6:34 AM DENTAL INSURANCE COORDINATOR Organism Antibiotic Method Susceptibility Klebsiella pneumoniae Amikacin SG <=2 ug/mL: Susceptible Klebsiella pneumoniae Ampicillin-sulbactam SG 4 ug/mL: Susceptible Klebsiella pneumoniae Cefazolin SG <=4 ug/mL: See Comment* Klebsiella pneumoniae Cefazolin-Urine (uncomplicated infections ONLY) SG <=4 ug/mL: Susceptible Klebsiella pneumoniae Cefepime SG <=1 ug/mL: Susceptible Klebsiella pneumoniae Ceftriaxone SG <=1 ug/mL: Susceptible Klebsiella pneumoniae Ciprofloxacin SG <=0.25 ug/mL: Susceptible Klebsiella pneumoniae Extended-Spectrum Beta-Lactamase SG NEG ug/mL: Neg Klebsiella pneumoniae Gentamicin SG <=1 ug/mL: Susceptible Klebsiella pneumoniae Meropenem SG <=0.25 ug/mL: Susceptible Klebsiella pneumoniae Nitrofurantoin SG 64 ug/mL: Intermediate Klebsiella pneumoniae Piperacillin-tazobactam SG <=4 ug/mL: Susceptible Klebsiella pneumoniae Tobramycin SG <=1 ug/mL: Susceptible Klebsiella pneumoniae Trimethoprim-sulfa methoxaz ole SG <=20 ug/mL: Susceptible Comment: *Cefazolin SG of </=4 cannot distinguish between susceptible or intermediate for systemic breakpoints. If further defined interpretation is needed, call Microbiology and a disk diffusion test will be performed. Urine breakpoints for cefazolin should only be used when treating uncomplicated UTIs including men and women without urologic abnormality, kidney stones, stents, nephrostomy tubes, signs/symptoms of systemic illness, or pelvic/perineal pain in men. Cefazolin results can be used to predict susceptibility to oral cephalosporins - cephalexin, cefprozil, cefaclor, cefuroxime, cefdinir, and cefpodoxime. For complicated UTIs, use alternative cefazolin susceptibility result above. Noemi Lorenz ROOM SERVICE FOOD SERVICE [facility]END[facility] - MICROBIOLOG Y ORDERABLES Performing Organization Address City/[facility]/ZIP Co de Phone Number [facility] [address] [facility] [address] [phone] * LACTIC ACID BLOOD REFLEX TO REPEAT (05/21/2022 4:48 PM DENTAL INSURANCE COORDINATOR) Lactic Acid 0.73 <=2 mmol/L 05/21/2022 5:20 PM DENTAL INSURANCE COORDINATOR [facility] Blood BLOOD SPECIMEN / Unknown Venipuncture / Unknown 05/21/2022 4:48 PM DENTAL INSURANCE COORDINATOR 05/21/2022 4:59 PM DENTAL INSURANCE COORDINATOR Noemi Lorenz [facility] LAB - CHEMISTRY O RDERABLES [facility] [address] [place] [address] * (ABNORMAL) LIPASE BLOOD (05/21/2022 4:48 PM DENTAL INSURANCE COORDINATOR) Only the most recent of5 resultswithin the time period is included. Lipase 178(H) 8 - 78 U/L 05/21/2022 5:23 PM DENTAL INSURANCE COORDINATOR [facility] Blood BLOOD SPECIMEN / Unknown Venipuncture / Unknown 05/21/2022 4:48 PM DENTAL INSURANCE COORDINATOR 05/21/2022 4:59 PM DENTAL INSURANCE COORDINATOR Noemi Lorenz APRN-BENZOL OPERATOR LAB - CHEMISTRY O RDERABLES Performing Organization Address City/[facility]/ZIP Co de Phone Number [facility] [address] [place], [place] [id number] * HCG BLOOD QUALITATIVE (05/21/2022 4:48 PM DENTAL INSURANCE COORDINATOR) Pathologist [facility] HCG Qual Serum Negative Negative 05/21/2022 5:11 PM DENTAL INSURANCE COORDINATOR [facility] Blood BLOOD SPECIMEN / Unknown Venipuncture / Unknown 05/21/2022 4:48 PM DENTAL INSURANCE COORDINATOR 05/21/2022 4:59 PM DENTAL INSURANCE COORDINATOR Noemi Lorenz APRN-BENZOL OPERATOR LAB - CHEMISTRY O RDERABLES Performing Organization Address [facility] [[email or web address]] Co de Phone Number [facility] [address] [place] [address] * EYE EXAM (03/10/2022) Anatomical Region Laterality Modality Other Narrative 03/10/2022 Ordered by an unspecified provider. Scanned Document SCANNING ONLY * EGD (01/06/2022 6:48 AM CDT) [facility] Report Endoscopy POC _ Patient Name: Dory Barnes Procedure Date: 01/06/2022 6:48 AM Date of : 1980 Admit Type: Outpatient Age: 41 Gender: Female Attending MD: Eduardo Herrera MD _ Procedure: Upper GI endoscopy Indications: Heartburn Providers: Eduardo Herrera MD (Doctor) Referring MD: Henry Ruiz (Referring MD) Medicines: Propofol per Anesthesia Complications: No immediate complications. _ Estimated Blood Loss: Estimated blood loss: none. Procedure: Pre-Anesthesia Assessment: - Prior to the procedure, a History and Physical was performed, and patient medications and allergies were reviewed. The patient's tolerance of previous anesthesia was also reviewed. The risks and benefits of the procedure and the sedation options and risks were discussed with the patient. All questions were answered, and informed consent was obtained. Prior Anticoagulants: The patient has taken no previous anticoagulant or antiplatelet agents. ASA Grade Assessment: II - A patient with mild systemic disease. After reviewing the risks and benefits, the patient was deemed in satisfactory condition to undergo the procedure. - Prior to the procedure, a History and Physical was performed, and patient medications and allergies were reviewed. The patient's tolerance of previous anesthesia was also reviewed. The risks and benefits of the procedure and the sedation options and risks were discussed with the patient. All questions were answered, and informed consent was obtained. Prior Anticoagulants: The patient has taken no previous anticoagulant or antiplatelet agents. ASA Grade Assessment: II - A patient with mild systemic disease. After reviewing the risks and benefits, the patient was deemed in satisfactory condition to undergo the procedure. After obtaining informed consent, the endoscope was passed under direct vision. Throughout the procedure, the patient's blood pressure, pulse, and oxygen saturations were monitored continuously. The Endoscope was introduced through the mouth, and advanced to the jejunum. The upper GI endoscopy was accomplished without difficulty. The patient tolerated the procedure well. Findings: The examined esophagus was normal. Evidence of a gastric bypass was found. A gastric pouch with a 4 cm length from the GE junction to the gastrojejunal anastomosis was found containing non erosive mucosa. The staple line appeared intact. The gastrojejunal anastomosis was characterized by healthy appearing mucosa dilated to >20mm. This was traversed. Biopsies were taken with a cold forceps for Helicobacter pylori testing using CLOtest. A 3 cm type-III paraesophageal hernia was found. The examined jejunum was normal. _ Impression: - Normal esophagus. - Gastric bypass with a pouch 4 cm in length and intact staple line. Gastrojejunal anastomosis characterized by healthy appearing mucosa dilated to >20mm. Biopsied. - 3 cm type-III paraesophageal hernia. - Normal examined jejunum. Recommendation: - Await pathology results. - Discharge patient to home. - Resume previous diet. - Continue present medications. Procedure Code(s): --- Professional --- 08087, Esophagogastroduod enoscopy, flexible, transoral; with biopsy, single or multiple --- Technical --- 48912, Esophagogastroduod enoscopy, flexible, transoral; with biopsy, single or multiple Diagnosis Code(s): --- Professional --- K44.9, Diaphragmatic hernia without obstruction or gangrene R12, Heartburn --- Technical --- K44.9, Diaphragmatic hernia without obstruction or gangrene R12, Heartburn CPT copyright 2019 [employer]. All rights reserved. The codes documented in this report are preliminary and upon grader meat review may be revised to meet current compliance requirements. _ Eduardo Herrera MD 01/06/2022 8:00:27 AM Number of Addenda: 0 Note Initiated On: 01/06/2022 6:48 AM [facility] 01/06/2022 6:48 AM CDT Narrative Procedure Note Eduardo Herrera MD - 01/06/2022 8:01 AM CDT PLAN: - f/u biopsy results - Pt to be scheduled for laparoscopic repair of hiatal hernia in additionto primary bariatric operation secondary to GERD/heartburn symptomsrelated to the hiatal hernia. - Follow up post procedure office appointment necessary Eduardo Herrera MD Eduardo Herrera MD [place] [address] * CT HEAD WO CONTRAST (08/27/2021 12:13 PM DENTAL INSURANCE COORDINATOR) Only the most recent of4 resultswithin the time period is included. Anatomical Region Laterality Modality Head Computed Tomogra phy 08/27/2021 1:14 PM DENTAL INSURANCE COORDINATOR Impressions 08/27/2021 1:22 PM DENTAL INSURANCE COORDINATOR IMPRESSION: 1.Expected evolution of the previously seen postsurgical changes from right pterional craniotomy. 2.No acute intracranial abnormality. 3.Tiny hyperdensities within/adjacent to the lateral ventricles as described above, likely related to prior catheter placement, as described above. This report was electronically signed by ROSA LARA on 08/27/2021 1:22 PM . Narrative 08/27/2021 1:22 PM DENTAL INSURANCE COORDINATOR EXAMINATION: Computed tomography (CT) of the head without contrast HISTORY: G44.319: Acute post-traumatic headache, not intractable TECHNIQUE: CT of the head was performed without contrast according to standard protocol. COMPARISON: CT head from 07/12/2021 was reviewed FINDINGS: There has been expected evolution of the previously seen postsurgical changes from right pterional craniotomy. The scalp swelling has resolved and the scalp alice have been removed. There is no fluid collection in the scalp. Trace subjacent extra-axial fluid collection is seen. Small volume residual encephalomalacia/gliosis is seen in the right inferior temporal lobe. The previously seen hemorrhage in this region has resolved. The mass effect has resolved with reexpansion of the lateral ventricles/right cerebral sulci and extra-axial dilation of the temporal horn. Multiple aneurysm clips are seen superior to the right petrous apex. The ventricular catheter has been removed. Left frontal amanda hole is again seen. A punctate calcification is seen at the lateral margin of the right frontal horn near the foramen of Monro (series 3 image 20). This is new since 07/07/2019 and may represent a catheter fragment (possibly seen on head CT from 07/09/2021). Punctate hyperdense foci are seen in the periventricular region on series 3 images 16 and 17, also new since the initial studies and may be related to prior catheter removal. There is no CT evidence of acute infarct. There is no acute hemorrhage. There is no hydrocephalus or midline shift. There is no other parenchymal abnormality. The paranasal sinuses and tympanomastoid cavities are aerated. The orbits are unremarkable. Procedure Note Rosa Lara MD - 08/27/2021 EXAMINATION: Computed tomography (CT) of the head without contrast HISTORY: G44.319: Acute post-traumatic headache, not intractable TECHNIQUE: CT of the head was performed without contrast according to standard protocol. COMPARISON: CT head from 07/12/2021 was reviewed FINDINGS: There has been expected evolution of the previously seen postsurgical changes from right pterional craniotomy. The scalp swelling has resolved and the scalp alice have been removed. There is no fluid collection in the scalp. Trace subjacent extra-axial fluid collection is seen. Small volume residual encephalomalacia/gliosis is seen in the right inferior temporal lobe. The previously seen hemorrhage in this region hasresolved. The mass effect has resolved with reexpansion of the lateral ventricles/right cerebral sulci and extra-axial dilation of the temporal horn. Multiple aneurysm clips are seen superior to the right petrousapex. The ventricular catheter has been removed. Left frontal amanda hole isagain seen. A punctate calcification is seen at the lateral margin of theright frontal horn near the foramen of Monro (series 3 image 20). This is new since 07/07/2019 and may represent a catheter fragment (possibly seen on head CT from 07/09/2021). Punctate hyperdense foci are seen in the periventricular region on series 3 images 16 and 17, also new since the initial studies and may be related to prior catheter removal. There is no CT evidence of acute infarct. There is no acute hemorrhage. There is no hydrocephalus or midline shift. There is no otherparenchymal abnormality. The paranasal sinuses and tympanomastoid cavities are aerated. Theorbits are unremarkable. IMPRESSION: 1.Expected evolution of the previously seen postsurgical changes from right pterional craniotomy. 2.No acute intracranial abnormality. 3.Tiny hyperdensities within/adjacent to the lateral ventricles as described above, likely related to prior catheter placement, asdescribed above. This report was electronically signed by ROSA LARA on 08/27/2021 1:22 PM. Shu Jean APRN-BENZOL OPERATOR CT ORDERABLES * EYE EXAM (08/27/2021) Anatomical Region Laterality Modality Other Narrative 08/27/2021 Ordered by an unspecified provider. Scanned Document SCANNING ONLY * TROPONIN I (07/25/2021 5:00 AM DENTAL INSURANCE COORDINATOR) Only the most recent of3 resultswithin the time period is included. Troponin I <0.010 <0.038 ng/mL 07/25/2021 7:31 AM DENTAL INSURANCE COORDINATOR [facility] Blood BLOOD SPECIMEN / Unknown 07/25/2021 5:00 AM DENTAL INSURANCE COORDINATOR 07/25/2021 6:50 AM DENTAL INSURANCE COORDINATOR Katie Tran MD LAB - CHEMISTRY YOLANDE FRAGA Performing Organization Address City/[facility]/ZIP Co de Phone Number [facility] [id number] [place] [phone] * (ABNORMAL) CK BLOOD (07/25/2021 5:00 AM DENTAL INSURANCE COORDINATOR) CK 24(L) 29 - 168 U/L 07/25/2021 8:19 AM DENTAL INSURANCE COORDINATOR [facility] Blood BLOOD SPECIMEN / Unknown 07/25/2021 5:00 AM DENTAL INSURANCE COORDINATOR 07/25/2021 6:50 AM DENTAL INSURANCE COORDINATOR Katie Tran MD LAB - CHEMISTRY YOLANDE FRAGA Performing Organization Address [facility] [[email or web address]] Co de Phone Number [facility] [id number] [place] [address] [phone] * VASCULAR LAB ORDER (07/23/2021 8:08 AM DENTAL INSURANCE COORDINATOR) Anatomical Region Laterality Modality Other Narrative 07/23/2021 8:08 AM DENTAL INSURANCE COORDINATOR Ordered by an unspecified provider. Scanned Document VASCULAR LAB ORDERAB LES * SODIUM BLOOD (07/19/2021 10:39 AM DENTAL INSURANCE COORDINATOR) Only the most recent of21 resultswithin the time period is included. Sodium 141 136 - 145 mmol/L 07/19/2021 11:58 AM DENTAL INSURANCE COORDINATOR [facility] Blood BLOOD SPECIMEN / Unknown Lab Venipuncture / Unknown 07/19/2021 10:39 AM DENTAL INSURANCE COORDINATOR 07/19/2021 11:29 AM DENTAL INSURANCE COORDINATOR Nicholas Peacock MD LAB - CHEMISTRY YOLANDE FRAGA Performing Organization Address City/[facility]/ZIP Co de Phone Number [address] [address], [place] [phone] * (ABNORMAL) CALCIUM IONIZED WHOLE BLOOD (07/19/2021 10:38 AM DENTAL INSURANCE COORDINATOR) Only the most recent of10 resultswithin the time period is included. Calcium Ionized 1.15 mmol/L 07/19/2021 11:23 AM DENTAL INSURANCE COORDINATOR [facility] pH 7.43 7.35 - 7.45 pH 07/19/2021 11:[address] [facility] Ionized Calcium pH Adjusted 1.16(L) 1.19 - 1.34 mmol/L 07/19/2021 11:[address] [facility] Blood BLOOD SPECIMEN / Unknown Lab Venipuncture / Unknown 07/19/2021 10:38 AM DENTAL INSURANCE COORDINATOR 07/19/2021 11:21 AM DENTAL INSURANCE COORDINATOR Nicholas Peacock MD LAB - CHEMISTRY YOLANDE FRAGA Performing Organization Address City/[facility]/ZIP Co de Phone Number [address] [address], [place] [phone] * VAS TRANSCRANIAL DOPPLER COMP (07/18/2021 10:27 AM DENTAL INSURANCE COORDINATOR) Only the most recent of9 resultswithin the time period is included. Anatomical Region Laterality Modality Head Intravascular Ul trasound 07/18/2021 9:24 AM DENTAL INSURANCE COORDINATOR Narrative Procedure Note Finesse Ramirez MD - 07/23/2021 Shu Jean APRN-BENZOL OPERATOR VASCULAR LAB ORDERAB LES * SPECIFIC GRAVITY URINE (07/14/2021 3:11 AM DENTAL INSURANCE COORDINATOR) Specific [place] UA 1.016 1.005 - 1.030 07/14/2021 3:29 AM DENTAL INSURANCE COORDINATOR [facility] Urine URINE / Unknown Collection / Unknown 07/14/2021 3:11 AM DENTAL INSURANCE COORDINATOR 07/14/2021 3:16 AM DENTAL INSURANCE COORDINATOR Narrative [facility] - 07/14/2021 3:29 AM DENTAL INSURANCE COORDINATOR Nicholas Peacock MD LAB - URINALYSIS ORD ERABLES Performing Organization Address City/[facility]/ZIP Co de Phone Number [address] [address], [facility] [phone] * OSMOLALITY URINE (07/14/2021 3:11 AM DENTAL INSURANCE COORDINATOR) Osmolality Urine 638 50-1,200 mOsm/kg 07/14/2021 7:[address] [facility] Urine URINE SPECIMEN OBTAINED BY CLEAN CATCH PROCEDURE / Unknown Collection / Unknown 07/14/2021 3:11 AM DENTAL INSURANCE COORDINATOR 07/14/2021 3:16 AM DENTAL INSURANCE COORDINATOR Nicholas Peacock MD LAB - URINE CHEMISTR Y ORDERABLES [address] [address], [place] [phone] * XR CHEST 1VW PORTABLE (07/12/2021 3:05 PM DENTAL INSURANCE COORDINATOR) Only the most recent of2 resultswithin the time period is included. Anatomical Region Laterality Modality Chest Radiographic Diana ging 07/12/2021 3:03 PM DENTAL INSURANCE COORDINATOR Impressions 07/12/2021 3:09 PM DENTAL INSURANCE COORDINATOR FINDINGS/IMPRESSION: A right internal jugular approach central venous catheter terminates at the superior cavoatrial junction. There is no focal consolidation, pleural effusion, or pneumothorax. The cardiomediastinal silhouette is normal. The visible bony thorax is intact. Dictated by Violet Mathew MD (chairman president and chief executive officer). Dr. ERICH Rivero MD, DEE DEE have personally reviewed and interpreted this examination/study. This report was electronically signed by ERICH WHITE MD, FRCR on 07/12/2021 3:09 PM . Narrative 07/12/2021 3:09 PM DENTAL INSURANCE COORDINATOR EXAMINATION: XR CHEST 1VW PORTABLE HISTORY: G44.319: Acute post-traumatic headache, not intractable COMPARISON: No prior imaging is available for comparison at the time of this dictation. Procedure Note Erich White MD - 07/12/2021 EXAMINATION: XR CHEST 1VW PORTABLE HISTORY: G44.319: Acute post-traumatic headache, not intractable COMPARISON: No prior imaging is available for comparison at the time of this dictation. FINDINGS/IMPRESSION: A right internal jugular approach central venous catheter terminates at the superior cavoatrial junction. There is no focal consolidation, pleural effusion, or pneumothorax. The cardiomediastinal silhouette is normal. The visible bony thorax isintact. Dictated by Violet Mathew MD (chairman president and chief executive officer). Dr. ERICH Rivero MD, [facility] have personally reviewedand interpreted this examination/study. This report was electronically signed by ERICH WHITE MD, DEE DEE on 07/12/2021 3:09 PM . Nicholas Peacock MD DIAGNOSTIC IMAGING O RDERABLES * GRAM STAIN (LAB ORDERED) (07/11/2021 2:46 PM DENTAL INSURANCE COORDINATOR) Gram Stain No organisms seen 022 7:44 PM DENTAL INSURANCE COORDINATOR [facility] Gram Stain Rare Polymorphonuclear cells 07/11/2021 7:44 PM DENTAL INSURANCE COORDINATOR [facility] Microbiology Collection / Unknown 07/11/2021 2:46 PM DENTAL INSURANCE COORDINATOR 07/11/2021 2:46 PM DENTAL INSURANCE COORDINATOR Shu [facility] - MICROBIOLOGY O RDERABLES [facility] [address] [place] [address], [place] [phone] * DIFFERENTIAL MANUAL FLUID (07/11/2021 1:35 PM DENTAL INSURANCE COORDINATOR) Segs % Fluid 52 % 07/11/2021 2:34 PM DENTAL INSURANCE COORDINATOR [facility] Lymphocytes % Fluid 30 % 07/11/2021 2:34 PM DENTAL INSURANCE COORDINATOR [facility] Monocytes % Fluid 18 % 07/11/2021 2:34 PM DENTAL INSURANCE COORDINATOR [facility] Cerebral spinal fluid CEREBROSPINAL FLUID SPECIMEN / Unknown Collection / Unknown 07/11/2021 1:35 PM DENTAL INSURANCE COORDINATOR 07/11/2021 1:41 PM DENTAL INSURANCE COORDINATOR Shu Jean [facility] - BODY FLUID ORD ERABLES Performing Organization Address [facility]/ZIP Co de Phone Number [facility] [address] [place] [address], [place] [phone] * CULTURE CSF+GRAM STAIN (07/11/2021 1:35 PM DENTAL INSURANCE COORDINATOR) Culture No growth SG 07/18/2021 6:35 AM DENTAL INSURANCE COORDINATOR [facility] Gram Stain Rare Polymorphonuclear cells 07/18/2021 6:35 AM DENTAL INSURANCE COORDINATOR [facility] Gram Stain No organisms seen 022 6:35 AM DENTAL INSURANCE COORDINATOR [facility] Cerebral spinal fluid CEREBROSPINAL FLUID SPECIMEN / Unknown Collection / Unknown 07/11/2021 1:35 PM DENTAL INSURANCE COORDINATOR 07/11/2021 1:50 PM DENTAL INSURANCE COORDINATOR Shu Jean [facility] - MICROBIOLOGY O RDERABLES [facility] [address] [place] [address], [place] [phone] * (ABNORMAL) CELL COUNT W DIFFERENTIAL CSF (07/11/2021 1:35 PM DENTAL INSURANCE COORDINATOR) Color Fluid [place](A) Colorles s, Straw 07/11/2021 2:[address] [facility] Clarity Fluid Hazy(A) Clear 07/11/2021 2:[address] [facility] Volume Fluid 2.0 mL 07/11/2021 2:[address] [facility] WBC Fluid 12(H) 0 - 5 /uL 07/11/2021 2:[address] [facility] RBC Fluid 8,000(H) 0 /uL 07/11/2021 2:[address] [facility] Differential Manual Differential to follow. 07/11/2021 2:[address] [facility] Cerebral spinal fluid CEREBROSPINAL FLUID SPECIMEN / Unknown Collection / Unknown 07/11/2021 1:35 PM DENTAL INSURANCE COORDINATOR 07/11/2021 1:41 PM DENTAL INSURANCE COORDINATOR Narrative [facility] - 07/11/2021 2:34 PM DENTAL INSURANCE COORDINATOR No reference ranges established for body fluid cell counts. The reference ranges provided are derived from published literature. The test results must be integrated into the clinical context for interpretation. Shu MOSS LAB - BODY FLUID ORD ERABLES [address] [address], [facility] [phone] * (ABNORMAL) PROTEIN CSF (07/11/2021 1:35 PM DENTAL INSURANCE COORDINATOR) Protein CSF 68(H) 15 - 45 mg/dL 07/11/2021 2:[address] [facility] Cerebral spinal fluid CEREBROSPINAL FLUID SPECIMEN / Unknown Collection / Unknown 07/11/2021 1:35 PM DENTAL INSURANCE COORDINATOR 07/11/2021 1:41 PM DENTAL INSURANCE COORDINATOR Shu Jean [facility] - BODY FLUID ORD ERABLES [address] [address], [facility] [phone] * (ABNORMAL) GLUCOSE CSF (07/11/2021 1:35 PM DENTAL INSURANCE COORDINATOR) Glucose CSF 76(H) 40 - 70 mg/dL 07/11/2021 2:25 PM DENTAL INSURANCE COORDINATOR [facility] Cerebral spinal fluid CEREBROSPINAL FLUID SPECIMEN / Unknown Collection / Unknown 07/11/2021 1:35 PM DENTAL INSURANCE COORDINATOR 07/11/2021 1:41 PM DENTAL INSURANCE COORDINATOR Shujeanine Simonn ROOM SERVICE FOOD SERVICE ATTENDANT-BENZOL OPERATOR LAB - BODY FLUID ORD ERABLES [facility] [address] [place] [address], [facility] [phone] * XR ABDOMEN KUB PORTABLE (07/11/2021 5:14 AM DENTAL INSURANCE COORDINATOR) Only the most recent of3 resultswithin the time period is included. Anatomical Region Laterality Modality Abdomen Radiographic Diana ging 07/11/2021 9:02 AM DENTAL INSURANCE COORDINATOR Impressions 07/11/2021 9:16 AM DENTAL INSURANCE COORDINATOR FINDINGS/IMPRESSION: Interval slight retraction of the Dobbhoff tube, with tip now superimposing the superior aspect of the L3 vertebral body. Report dictated by Juan Jose Nur M.D. (chairman president and chief executive officer). Dr. MAYCO Rivero MD have personally reviewed and interpreted this examination/study. This report was electronically signed by MAYCO SOSA MD on 07/11/2021 9:16 AM . Narrative 07/11/2021 9:16 AM DENTAL INSURANCE COORDINATOR EXAMINATION: XR ABDOMEN KUB PORTABLE HISTORY: G44.319: Acute post-traumatic headache, not intractable COMPARISON: Portable KUB 07/10/2021 Procedure Note Mayco Sosa MD - 07/11/2021 EXAMINATION: XR ABDOMEN KUB PORTABLE HISTORY: G44.319: Acute post-traumatic headache, not intractable COMPARISON: Portable KUB 07/10/2021 FINDINGS/IMPRESSION: Interval slight retraction of the Dobbhoff tube, with tip now superimposing the superior aspect of the L3 vertebral body. Report dictated by Juan Jose Nur M.D. (chairman president and chief executive officer). Dr. MAYCO Rivero MD have personally reviewed and interpreted this examination/study. This report was electronically signed by MAYCO SOSA MD on07/11/2021 9:16 AM . Nicholas Peacock MD DIAGNOSTIC IMAGING O RDERABLES * PREPARE (CROSSMATCH) RBC UNIT(S), 1 Units (07/09/2021 1:17 AM DENTAL INSURANCE COORDINATOR) Only the most recent of2 resultswithin the time period is included. Unit Description N/A [facility] Blood Bank BLOOD SPECIMEN / Unknown 07/05/2021 1:57 AM DENTAL INSURANCE COORDINATOR Nichoals Peacock MD LAB - BLOOD BANK ORD ERABLES [facility] [address] [place] [address], [facility] [phone] * (ABNORMAL) BLOOD GAS+COOX+ELECTROLYTES+METAB ARTERIAL (07/08/2021 10:14 AM DENTAL INSURANCE COORDINATOR) pH Arterial 7.44 7.35 - 7.45 pH 07/08/2021 10:[address] [facility] pO2 Arterial 183(H) 80 - 100 mmHg 07/08/2021 10:[address] [facility] pCO2 Arterial 36 35 - 45 mmHg 10:[address] [facility] HCO3 Arterial 25 20 - 30 mmol/l 07/08/2021 10:[address] [facility] BE Arterial 0.5 -2.0 - 2.0 mmol/L 07/08/2021 10:[address] [facility] Oxyhemoglobin Arterial 97.7 % 07/08/2021 10:[address] [facility] Dexoyhemoglobin (HHB) % 0.3 % 07/08/2021 10:[address] [facility] Methemoglobin <0.8 0.0 - 2.0 % 07/08/2021 10:[address] [facility] Carboxyhemoglobin 1.3 0.0 - 2.0 % 2021 10:[address] [facility] O2 Content Arterial 15.8 Interpret within clinical context mg/dL 07/08/2021 10:[address] [facility] Hemoglobin by COOX 11.2(L) 12.0 - 15.6 g/dL 07/08/2021 10:[address] [facility] O2 Saturation Arterial 100 90 - 100 % 07/08/2021 10:[address] [facility] Sodium Whole Blood 135 135 - 145 mmol/L 07/08/2021 10:[address] [facility] Potassium Whole Blood 3.3(L) 3.5 - 5.5 mmol/L 07/08/2021 10:[address] [facility] Chloride WB 103 101 - 111 mmol/L 07/08/2021 10:[address] [facility] Calcium Ionized 1.09 mmol/L 10:[address] [facility] Ionized Calcium pH Adjusted 1.11(L) 1.19 - 1.34 mmol/L 07/08/2021 10:[address] [facility] Anion Gap (AG) Arterial 11 8 - 18 mmol/L 07/08/2021 10:[address] [facility] Glucose WB 116(H) 70 - 105 mg/dL 07/08/2021 10:[address] [facility] Lactic Acid Whole Blood 0.6 <=2.0 mmol/L 07/08/2021 10:[address] [facility] Blood, arterial ARTERIAL BLOOD SPECIMEN / Unknown Arterial Puncture / Unknown 07/08/2021 10:14 AM DENTAL INSURANCE COORDINATOR 07/08/2021 10:14 AM [facility] - 07/08/2021 10:17 AM [facility] Carboxyhemoglobin Normal Concentration: Non-smokers: 0-2%; Smokers: 0-9%; Toxic: >20% Janet Robison MD LAB - BLOOD GASES OR DERABLES [facility] [address] [place] [address], [facility] [phone] * IV PLACEMENT PERFORMABLE (07/08/2021 9:59 AM DENTAL INSURANCE COORDINATOR) Narrative Keyshawn Haley, - 07/08/2021 9:59 AM DENTAL INSURANCE COORDINATOR Keyshawn Haley DO 07/08/2021 9:59 AM Peripheral IV Line Placement: Patient Location: OR Procedure: IV start (83007). Procedure Section: Skin Prep: alcohol. Orientation: left Location: foot Local Anesthetic Used? No Catheter Gauge: 18 Number of Attempts: 1. Procedure Tolerance: tolerated well. Procedure Start Time: 07/08/2021 9:58 AM. Staff Section Anesthesia Provider: Mickey Feliz DO Performed the procedure Janet Robison MD GENERAL ANESTHESIA O SORAIDA * ETT LINE PERFORMABLE (07/08/2021 8:29 AM DENTAL INSURANCE COORDINATOR) Keyshawn Mccarthy DO - 07/08/2021 8:29 AM DENTAL INSURANCE COORDINATOR Keyshawn Haley DO 07/08/2021 8:30 AM Endotracheal Tube Placement: Patient Location: OR. Intubation Event Date/Time: 07/08/2021 7:47 AM Procedure: intubation (56139). Procedure Section: Sedation: under general anesthesia. Indications for Airway Management: anesthesia Procedure pretreatments used? No Induction: rapid sequence and standard IV Patient Position: sniffing and supine Mask Ventilation: not attempted. Blade Type: Video Blade Size: 3 Laryngoscopy View: grade 1 (full cords) Intubation Adjuncts: stylet and video laryngoscope Tube: endotracheal tube Placement: oral Tube type: cuff - inflated Tube Size (MM): 7 Depth of Insertion (CM): 23 Measured From: teeth Cuff volume (mL): 8 Cuff Inflated With: air Number of Attempts: 1. Placement Verified By: direct visualization, bilateral breath sounds, chest auscultation and CO2 monitor Tube secured with: adhesive tape. Dentition unchanged? Yes Difficult Airway? No. Procedure Start Time: 07/08/2021 7:47 AM. Staff Section Anesthesia Provider: Keyshawn Haley DO Performed the procedure Provider #1: Mickey Feliz DO. Provider #2: Janet Robison MD. Janet Robison MD GENERAL ANESTHESIA O SORAIDA * IV PLACEMENT PERFORMABLE (07/08/2021 8:21 AM DENTAL INSURANCE COORDINATOR) Keyshawn Mccarthy DO - 07/08/2021 8:21 AM DENTAL INSURANCE COORDINATOR Keyshawn Haley DO 07/08/2021 8:22 AM Peripheral IV Line Placement: Patient Location: OR Procedure: IV start (92530). Procedure Section: Orientation: right Location: hand Catheter Gauge: 18 Number of Attempts: 1. Procedure Tolerance: tolerated well. Procedure Start Time: 07/08/2021 7:45 AM. Staff Section Anesthesia Provider: Keyshawn Haley DO, Performed the procedure Provider #1: Janet Robison MD. Janet Robison MD GENERAL ANESTHESIA O RDERAGERRY * IV PLACEMENT PERFORMABLE (07/08/2021 8:19 AM DENTAL INSURANCE COORDINATOR) Narrative Keyshawn Haley DO - 07/08/2021 8:19 AM DENTAL INSURANCE COORDINATOR Keyshawn Haley DO 07/08/2021 8:22 AM Peripheral IV Line Placement: Patient Location: OR Procedure: IV start ([id number]). Procedure Section: Skin Prep: alcohol. Orientation: right Location: foot Catheter Gauge: 16 Number of Attempts: 2. Procedure Start Time: 07/08/2021 8:10 AM. Staff Section Anesthesia Provider: Mickey Feliz DO, Performed the procedure Provider #1: Keyshawn Haley DO, Performed the procedure. Provider #2: Janet Robison MD. Additional Comments: Initial Attempt: Mickey Feliz - Unsuccessful Second Attempt: Keyshawn Kelley - Successful. Janet Robison MD GENERAL ANESTHESIA O SORAIDA * CT ANGIO BRAIN STEREOTACTIC (07/07/2021 10:10 PM DENTAL INSURANCE COORDINATOR) Anatomical Region Laterality Modality Head Computed Tomogra phy 07/07/2021 10:1 8 PM DENTAL INSURANCE COORDINATOR Impressions 07/08/2021 2:35 PM DENTAL INSURANCE COORDINATOR IMPRESSION: 1.Stereotactic CT angiogram of the brain for preoperative planning and intraoperative guidance. 2.Near complete resolution of the previously seen subarachnoid hemorrhage. No acute intracranial abnormality. 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 I, Dr. JUAN ANTONIO LEMONS have personally reviewed and interpreted this examination/study. This report was electronically signed by JUAN ANTONIO LEMONS on 07/08/2021 2:35 PM . Narrative 07/08/2021 2:35 PM DENTAL INSURANCE COORDINATOR EXAMINATION: STEREOTACTIC CT ANGIOGRAPHY OF THE HEAD WITHOUT AND WITH CONTRAST HISTORY: I60.9: Subarachnoid bleed TECHNIQUE: CT of the head was performed without contrast according to standard protocol. Then CT angiography of the head was obtained after the uneventful administration of 75 mL Isovue 370 intravenous contrast. Three dimensional postprocessing was performed by the technologist and sent to the workstation for review. The start of imaging was delayed with opacification of the arteries and veins per protocol. COMPARISON: Cerebral angiogram dated 07/05/[address] angiogram brain and neck dated 07/05/2021 FINDINGS: NON-ANGIOGRAPHIC FINDINGS: Multiple fiducial markers are in place bilaterally. There has been near complete resolution of the previously seen subarachnoid hemorrhage with minimal residual in the right cerebellopontine angle. The ventricles are of normal size, shape, and morphology. The basilar cisterns are patent. No mass effect or midline shift is seen. The lopez-white matter differentiation is normal. On the postcontrast images, there is no evidence of an enhancing lesion. Other than almost complete opacification of the left sphenoid sinus and mucosal thickening of the right sphenoid sinus and posterior left ethmoid air cell, the visualized portions of the orbits, paranasal sinuses, and mastoids appear normal. No acute fracture is identified. ANGIOGRAPHIC FINDINGS: The distal internal carotid arteries appear normal. The anterior and middle cerebral arteries appear normal. The distal vertebral arteries appear normal. The basilar artery and posterior cerebral arteries appear normal. 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 Procedure Note Juan Antonio Lemons MD - 07/08/2021 EXAMINATION: STEREOTACTIC CT ANGIOGRAPHY OF THE HEAD WITHOUT AND WITH CONTRAST HISTORY: I60.9: Subarachnoid bleed TECHNIQUE: CT of the head was performed without contrast according to standard protocol. Then CT angiography of the head was obtained afterthe uneventful administration of 75 mL Isovue 370 intravenous contrast.Three dimensional postprocessing was performed by the technologist and sent to the workstation for review. The start of imaging was delayed with opacification of the arteries and veins per protocol. COMPARISON: Cerebral angiogram dated 07/05/[address] angiogram brain and neck dated 07/05/2021 FINDINGS: NON-ANGIOGRAPHIC FINDINGS: Multiple fiducial markers are in place bilaterally. There has been near complete resolution of the previously seen subarachnoid hemorrhage with minimal residual in the right cerebellopontine angle. The ventricles are of normal size, shape, and morphology. The basilar cisterns are patent. No mass effect or midline shift is seen. The lopez-white matter differentiation is normal. On the postcontrast images, there is no evidence of an enhancing lesion. Other than almost complete opacification of the left sphenoid sinus and mucosal thickening of the right sphenoid sinus and posterior leftethmoid air cell, the visualized portions of the orbits, paranasal sinuses, and mastoids appear normal. No acute fracture is identified. ANGIOGRAPHIC FINDINGS: The distal internal carotid arteries appear normal. The anterior and middle cerebral arteries appear normal. The distal vertebral arteries appear normal. The basilar artery and posterior cerebral arteries appear normal. 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 Thereis evidence of arterial venous malformation. IMPRESSION: 1.Stereotactic CT angiogram of the brain for preoperative planning and intraoperative guidance. 2.Near complete resolution of the previously seen subarachnoidhemorrhage. No acute intracranial abnormality. 3.Redemonstrated fusiform aneurysm of the right superior cerebellarartery located within the right ambient cistern. I, Dr. JUAN ANTONIO LEMONS have personally reviewed and interpreted this examination/study. This report was electronically signed by JUAN ANTONIO LEMONS on 07/08/2021 2:35 PM . Nicholas Peacock MD CT ORDERABLES * (ABNORMAL) SARS-COV-2 (COVID-19) INTERNAL (07/07/2021 1:17 PM DENTAL INSURANCE COORDINATOR) COVID-19 PCR Detected( AA) Not detected 07/07/2021 7:43 PM DENTAL INSURANCE COORDINATOR [facility] Microbiology SPECIMEN FROM NASOPHARYNGEAL STRUCTURE / Unknown Collection / Unknown 07/07/2021 1:17 PM DENTAL INSURANCE COORDINATOR 07/07/2021 1:42 PM DENTAL INSURANCE COORDINATOR Narrative [facility] - 07/07/2021 7:43 PM DENTAL INSURANCE COORDINATOR This nucleic acid amplification assay performance was validated by [facility]. This test has been authorized by the Food and Drug administration (FDA)under an Emergency Use Authorization (EUA). This test has been validated in accordance with the FDA's guidance document Policy for Diagnostic Testing in Laboratories Certified to perform High Complexity Testing under CLIA prior to Emergency Use Authorization for Coronavirus Disease-2019 during the Public Health Emergency issued on August 27, 2019. FDA independent review of this validation is pending. This test is only authorized for the duration of time the declaration that circumstances exist justifying the authorization of emergency use of in vitro diagnostic tests for detection of SARS-CoV-2 virus and/or diagnosis of COVID-19 infection under section 564(b)(1) of the Act, 21 U.S.C 360bbb-3 (b)(1), unless the authorization is terminated or revoked sooner. Fact Sheets for this EUA assay are available upon request. Nicholas Peacock MD LAB - MICROBIOLOGY O RDERABLES [facility] MI[facility] [address] [place] [address], [facility] [phone] * IR CAROTID CEREBRAL ANGIOGRAM (07/05/2021 12:07 PM DENTAL INSURANCE COORDINATOR) Anatomical Region Laterality Modality Head X-Ray Angiograph y 07/07/2021 10:2 8 AM DENTAL INSURANCE COORDINATOR Impressions 07/12/2021 4:11 PM DENTAL INSURANCE COORDINATOR Impression: 1.A right superior cerebellar arteryfusiform aneurysm 8.8 mm x 2.[address] have personally reviewed and interpreted this examination/study. This report was electronically signed by NICHOLAS PEACOCK Dr on 07/12/2021 4:11 PM . Narrative 07/12/2021 4:11 PM DENTAL INSURANCE COORDINATOR Procedure: Cerebral angiogram 07/05/2021 Comparison study: None History: The patient a 40 years -year-old Female. Who presents with a 3-day history of bilateral ear pain,photophobia,headache, generalized weakness and SAH concerning for ruptured aneurysm. She needs a cerebral angiogram for further evaluation +/- aneurysm coiling if appropriate. Damage Adjuster: Mike Peacock Surgical Scheduler(s): Deni Moore Vessels: Ultrasound guided access of right radial artery Right radial artery angiogram Left common carotid angiogram: Cerebral Right common carotid angiogram: Cerebral Left subclavian artery angiogram: Cerebral Left vertebral artery angiogram: Cerebral Right vertebral artery angiogram: Cerebral 3D May CT was obtained by injection of contrast with the catheter in the Left vertebral artery. The data was sent to a [employer] work station and analyzed with surface rendering. Anesthesia: Moderate sedation on this adult patient was ordered by the sanding machine operator, administered intravenously in my presence, and monitored by the procedure nurse as an independent trained observer who was present throughout the procedure. The following parameters were monitored: oxygen saturation, heart rate, blood pressure, and response to care. Intra-service sedation start time was 1032 and end time was 1206 during which I was present. Total physician intra-service sedation time was 94 minutes. For details on sedation patient evaluation, please review the evaluation in [facility]. For details on monitored clinical parameters during the intra-service sedation time, please review the procedure nurse documentation in [facility]. Procedural detail: The risks, benefits, and alternatives to procedure were discussed in detail with the patient and her family. These included but were not limited to the risk of blood loss, vessel injury, stroke, renal injury, and contrast allergy. The patient was brought to the biplane angiography suite where she underwent prep and drape procedures. Limited ultrasound of the right radial artery demonstrated a patent vessel. A lopez scale image was documented. The right radial artery was accessed using a micropuncture needle. The needle entry was documented. Following a series of exchanges, a 5 Brazilian Slender Glidesheath was placed in the right radial artery. Heparin 3,000 units, verapamil 2.5 mg and nitroglycerin 300 mcg were given through the sheath for vasospasm prophylaxis. A 5 Brazilian Mitchell 2 catheter was navigated into the aortic arch along with Glidewire 0.035. The catheter was used to select the left subclavian artery and a cerebral angiogram was obtained followed by the left vertebral artery and a cerebral angiogram was obtained. The catheter was returned to the arch and used to select the left common carotid artery and a cerebral angiogram was obtained. The catheter was returned to the arch and used to select the brachiocephalic artery followed by the right common carotid artery and a cerebral angiogram was obtained. The catheter was returned to the brachiocephalic artery and used to select the right subclavian artery and a cerebral angiogram was obtained. All catheters and sheaths were removed from the arterial system. Hemostasis was achieved using a radial band. Hemostasis was immediate at the end of the closure procedure. The radial pulse was palpable at the end of the closure procedure. The patient tolerated the procedure without immediate complications. She was returned to the recovery area and hemodynamically stable condition neurologically unchanged. The estimated blood loss was less than 10 mL. A total of 31 minutes of fluoroscopic time and 160 ml of Isovue-300 contrast were utilized for the study. Findings: There was good arterial, capillary, and venous opacification of all angiographic runs. The left vertebral artery angiogram reveals a V3, V4, and vertebrobasilar junction that are normal in course and caliber. 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 The other major vessels to the cerebellum are normal in course and caliber. The basilar artery and posterior cerebral arteries are also normal in course and caliber. Normal venous drainage. The right subclavian artery angiogram reveals a V3, V4, and vertebrobasilar junction that are normal in course and caliber. The remainder of the posterior was partially visualized. The left common carotid artery angiogram reveals a normal course and caliber of the intracranial internal carotid artery. The middle cerebral artery and anterior cerebral artery are also normal in course and caliber as is the venous drainage. The right common carotid artery angiogram reveals a normal course and caliber of the intracranial internal carotid artery. The middle cerebral artery and anterior cerebral artery are also normal in course and caliber as is the venous drainage. Procedure Note Nicholas Peacock MD - 07/12/2021 Procedure: Cerebral angiogram 07/05/2021 Comparison study: None History: The patient a 40 years -year-old Female. Who presents with a 3-day history of bilateral ear pain,photophobia,headache, generalized weakness and SAH concerning for ruptured aneurysm. She needs a cerebral angiogram for further evaluation +/- aneurysm coiling if appropriate. Damage Adjuster: Mike Peacock Surgical Scheduler(s): Deni Moore Vessels: Ultrasound guided access of right radial artery Right radial artery angiogram Left common carotid angiogram: Cerebral Right common carotid angiogram: Cerebral Left subclavian artery angiogram: Cerebral Left vertebral artery angiogram: Cerebral Right vertebral artery angiogram: Cerebral 3D May CT was obtained by injection of contrast with the catheter inthe Left vertebral artery. The data was sent to a [employer] work station and analyzed with surface rendering. Anesthesia: Moderate sedation on this adult patient was ordered by the sanding machine operator, administered intravenously in my presence, and monitored bythe procedure nurse as an independent trained observer who was present throughout the procedure. The following parameters were monitored:oxygen saturation, heart rate, blood pressure, and response to care. Intra-service sedation start time was 1032 and end time was 1206 during which I was present. Total physician intra-service sedation time was 94 minutes. For details on sedation patient evaluation, please review the evaluation in [facility]. For details on monitored clinical parameters during the intra-service sedation time, please review the procedure nurse documentation in [facility]. Procedural detail: The risks, benefits, and alternatives to procedurewere discussed in detail with the patient and her family. These included but were not limited to the risk of blood loss, vessel injury, stroke, renal injury, and contrast allergy. The patient was brought to the biplane angiography suite where she underwent prep and drape procedures.Limited ultrasound of the right radial artery demonstrated a patent vessel. Agray scale image was documented. The right radial artery was accessed using a micropuncture needle. The needle entry was documented. Following aseries of exchanges, a 5 Brazilian Slender Glidesheath was placed in the right radial artery. Heparin 3,000 units, verapamil 2.5 mg and [id number] mcg were given through the sheath for vasospasm prophylaxis. A 5 Brazilian Mitchell 2 catheter was navigated into the aortic arch along withGlidewire 0.035. The catheter was used to select the left subclavian artery and a cerebral angiogram was obtained followed by the left vertebral arteryand a cerebral angiogram was obtained. The catheter was returned to the arch and used to select the left common carotid artery and a cerebralangiogram was obtained. The catheter was returned to the arch and used to selectthe brachiocephalic artery followed by the right common carotid artery and a cerebral angiogram was obtained. The catheter was returned to the brachiocephalic artery and used to select the right subclavian arteryand a cerebral angiogram was obtained. All catheters and sheaths were removed from the arterial system. Hemostasis was achieved using a radial band. Hemostasis was immediate at the end of the closure procedure. The radial pulse was palpable at theend of the closure procedure. The patient tolerated the procedure without immediate complications. She was returned to the recovery area and hemodynamically stable condition neurologically unchanged. The estimated blood loss was less than 10 mL. A total of 31 minutes of fluoroscopic time and 160 ml of Isovue-300 contrast were utilized for the study. Findings: There was good arterial, capillary, and venous opacification of all angiographic runs. The left vertebral artery angiogram reveals a V3, V4, andvertebrobasilar junction that are normal in course and caliber. 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 The other majorvessels to the cerebellum are normal in course and caliber. The basilar arteryand posterior cerebral arteries are also normal in course and caliber.Normal venous drainage. The right subclavian artery angiogram reveals a V3, V4, and vertebrobasilar junction that are normal in course and caliber. The remainder of the posterior was partially visualized. The left common carotid artery angiogram reveals a normal course and caliber of the intracranial internal carotid artery. The middle cerebral artery and anterior cerebral artery are also normal in course andcaliber as is the venous drainage. The right common carotid artery angiogram reveals a normal course and caliber of the intracranial internal carotid artery. The middle cerebral artery and anterior cerebral artery are also normal in course andcaliber as is the venous drainage. 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 have personally reviewed and interpreted this examination/study. This report was electronically signed by NICHOLAS PEACOCK Dr on07/12/2021 4:11 PM . Sergio Medina MD IR ORDERABLES * CT ANGIO BRAIN AND NECK (07/05/2021 5:24 AM DENTAL INSURANCE COORDINATOR) Anatomical Region Laterality Modality Head Computed Tomogra phy 07/05/2021 9:32 AM DENTAL INSURANCE COORDINATOR Impressions 07/05/2021 11:17 AM DENTAL INSURANCE COORDINATOR IMPRESSION: 1. Unchanged acute subarachnoid hemorrhage, as above, with slightly decreased volume of intraventricular hemorrhage. No evidence of hydrocephalus. 2. A 6 x 2 mm aneurysm of posterior circulation located within the right ambient cistern, likely arising from the branches of the P3 segment of right posterior cerebral artery. This is most likely the cause of the subarachnoid hemorrhage. 3. There is focal caliber changes of the basilar artery in its mid and distal portion without causing significant stenosis based on NASCET criteria which may indicate mild spasm of the artery. Discussed with Dr. Jean CUSTOMS DIRECTOR by Dr. Robles at 9:54 AM on 07/05/2021. Dictated by Joseph Robles M.D. (chairman president and chief executive officer). I, Dr. JUAN ANTONIO LEMONS have personally reviewed and interpreted this examination/study. This report was electronically signed by JUAN ANTONIO LEMONS on 07/05/2021 11:17 AM . Narrative 07/05/2021 11:17 AM DENTAL INSURANCE COORDINATOR EXAMINATION: 07/05/2021 at 5:15 AM: 1. CT ANGIOGRAPHY OF THE HEAD WITHOUT AND WITH CONTRAST 2. CT ANGIOGRAPHY OF THE NECK WITH CONTRAST HISTORY: Subarachnoid hemorrhage TECHNIQUE: CT of the head was performed without contrast according to standard protocol. Then CT angiography of the head and neck was obtained after the uneventful administration of 75 mL Isovue 370 intravenous contrast. Three dimensional postprocessing was performed by the technologist and sent to the workstation for review. COMPARISON: Noncontrast head CT, 07/05/2021 at 12:38 AM. FINDINGS: On the noncontrast images there is no change in volume or density of an acute subarachnoid hemorrhage within the interpeduncular cistern, right crural and ambient cisterns and the right cerebellopontine angle within the right pontocerebellar cistern. There is also a small amount of hemorrhage within the fourth ventricle. Intraventricular hemorrhage has slightly decreased from the prior study but the volume of subarachnoid hemorrhage has not significantly changed from the prior study. The subarachnoid hemorrhage measures up to 5 mm in maximum thickness (series 14, image 26) in the right cerebellopontine angle. There is no hydrocephalus. The remainder of the examination of the head is unchanged. 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 The imaged upper lungs are clear. On the postcontrast images, there is note of a small aneurysm (unclear if this is fusiform or saccular) within the posterior circulation (series 10, image 210; series 20, image 134), located within the right ambient cistern, possibly arising from P3 segment of the right posterior cerebral artery. The aneurysm is best seen on axial images and appears bilobed on the axial images, measuring approximately 6 x 2 mm. The visible aortic arch appears normal. The configuration of the brachiocephalic vessels is typical. The innominate artery and both subclavian arteries appear normal. The right common and internal carotid arteries as well as the right carotid bifurcation appear normal. The left common and internal carotid arteries as well as the left carotid bifurcation appear normal. The cervical vertebral arteries appear normal. The distal internal carotid arteries appear normal. The anterior and middle cerebral arteries appear patent but slightly diminutive in caliber. The distal vertebral arteries appear normal. Procedure Note Juan Antonio Lemons MD - 07/05/2021 EXAMINATION: 07/05/2021 at 5:15 AM: 1. CT ANGIOGRAPHY OF THE HEAD WITHOUT AND WITH CONTRAST 2. CT ANGIOGRAPHY OF THE NECK WITH CONTRAST HISTORY: Subarachnoid hemorrhage TECHNIQUE: CT of the head was performed without contrast according to standard protocol. Then CT angiography of the head and neck was obtained after the uneventful administration of 75 mL Isovue 370 intravenous contrast. Three dimensional postprocessing was performed by the technologist and sent to the workstation for review. COMPARISON: Noncontrast head CT, 07/05/2021 at 12:38 AM. FINDINGS: On the noncontrast images there is no change in volume or density of an acute subarachnoid hemorrhage within the interpeduncular cistern, right crural and ambient cisterns and the right cerebellopontine angle within the right pontocerebellar cistern. There is also a small amount of hemorrhage within the fourth ventricle. Intraventricular hemorrhage has slightly decreased from the prior study but the volume of subarachnoid hemorrhage has not significantly changed from the prior study. The subarachnoid hemorrhage measures up to 5 mm in maximum thickness (series 14, image 26) in the right cerebellopontine angle. There is no hydrocephalus. The remainder of the examination of the head isunchanged. 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 Theimaged upper lungs are clear. On the postcontrast images, there is note of a small aneurysm (unclearif this is fusiform or saccular) within the posterior circulation ([id number], image 210; series 20, image 134), located within the right ambient cistern, possibly arising from P3 segment of the right posteriorcerebral artery. The aneurysm is best seen on axial images and appears bilobed on the axial images, measuring approximately 6 x 2 mm. The visible aortic arch appears normal. The configuration of the brachiocephalic vessels is typical. The innominate artery and both subclavian arteries appear normal. The right common and internal carotid arteries as well as the right carotid bifurcation appear normal. Theleft common and internal carotid arteries as well as the left carotid bifurcation appear normal. The cervical vertebral arteries appearnormal. The distal internal carotid arteries appear normal. The anterior and middle cerebral arteries appear patent but slightly diminutive incaliber. The distal vertebral arteries appear normal. IMPRESSION: 1. Unchanged acute subarachnoid hemorrhage, as above, with slightly decreased volume of intraventricular hemorrhage. No evidence of hydrocephalus. 2. A 6 x 2 mm aneurysm of posterior circulation located within the right ambient cistern, likely arising from the branches of the P3 segment of right posterior cerebral artery. This is most likely the cause of the subarachnoid hemorrhage. 3. There is focal caliber changes of the basilar artery in its mid and distal portion without causing significant stenosis based on NASCET criteria which may indicate mild spasm of the artery. Discussed with Dr. Jean CUSTOMS DIRECTOR by Dr. Robles at 9:54 AM on 07/05/2021. Dictated by Joseph Robles M.D. (chairman president and chief executive officer). I, Dr. JUAN ANTONIO LEMONS have personally reviewed and interpreted this examination/study. This report was electronically signed by JUAN ANTONIO LEMONS on 07/05/2021 11:17 AM . Juan Jose Zamorano MD CT ORDERABLES * PT-INR [facility] (07/05/2021 4:00 AM DENTAL INSURANCE COORDINATOR) Only the most recent of2 resultswithin the time period is included. PT 13.6 12.1 - 14.8 Seconds 07/05/2021 4:59 AM DENTAL INSURANCE COORDINATOR [facility] INR 1.1 See Comment 07/05/2021 4:[address] [facility] Comment:The suggested therap eutic range for standard coumadin (warfarin) therapy is an INR of 2.0-3.0. For high-risk patients (Mechanical Mitral Valve Prosthesis, etc.), the suggested prophylactic therapeutic range is an INR of 2.5-3.5. Blood BLOOD SPECIMEN / Unknown Venipuncture / Unknown 07/05/2021 4:00 AM DENTAL INSURANCE COORDINATOR 07/05/2021 4:10 AM DENTAL INSURANCE COORDINATOR Juan Jose Zamorano MD LAB - COAGULATION OR DERABLES Performing Organization Address City/[facility]/ZIP Co de Phone Number [facility] [address] [place] [address], [facility] [phone] * BLOOD TYPE VERIFICATION (07/05/2021 1:58 AM DENTAL INSURANCE COORDINATOR) Only the most recent of2 resultswithin the time period is included. ABO Rh B POS 07/05/2021 2:4 1 AM DENTAL INSURANCE COORDINATOR [facility] Blood Bank BLOOD SPECIMEN / Unknown Venipuncture / Unknown 07/05/2021 1:58 AM DENTAL INSURANCE COORDINATOR 07/05/2021 2:02 AM DENTAL INSURANCE COORDINATOR Juan Jose Zamorano MD LAB - BLOOD BANK ORD ERABLES Performing Organization Address [facility] [[email or web address]] Co de Phone Number [facility] [address] [place] [phone], [facility] [phone] * TYPE + SCREEN PANEL (07/05/2021 1:46 AM DENTAL INSURANCE COORDINATOR) Only the most recent of3 resultswithin the time period is included. Antibody Screen NEG 2:43 AM DENTAL INSURANCE COORDINATOR [facility] ABO Rh B POS 07/05/2021 2:43 AM DENTAL INSURANCE COORDINATOR [facility] Blood Bank BLOOD SPECIMEN / Unknown Venipuncture / Unknown 07/05/2021 1:46 AM DENTAL INSURANCE COORDINATOR 07/05/2021 1:57 AM DENTAL INSURANCE COORDINATOR Juan Jose Zamorano MD LAB - BLOOD BANK ORD ERABLES Performing Organization Address City/[facility]/ZIP Co de Phone Number [facility] [address] [place] [phone], [facility] [phone] * IGG SUBCLASS 4 (05/17/2021 10:52 AM DENTAL INSURANCE COORDINATOR) IgG Subclass 4 49 1 - 123 mg/dL 05/19/2021 9:43 PM DENTAL INSURANCE COORDINATOR [facility] ([facility]) Comment: REFERENCE INTERVAL: Immunoglobulin G Subclass 4 Access complete set of age- and/or gender-specific reference intervals for this test in the [email or web address] Laboratory Test Directory ([employer]). Performed By: [facility] [address] [place] [address] Valver: Brittni Watson MD Blood BLOOD SPECIMEN / Unknown Lab Venipuncture / Unknown 05/17/2021 10:52 AM DENTAL INSURANCE COORDINATOR 05/17/2021 11:49 AM DENTAL INSURANCE COORDINATOR Ori Zarco MD LAB - CHEMIS TRY ORDERABLES [employer] [facility]) [address] [place] [address], [facility] * SMOOTH MUSCLE ANTIBODY W REFLEX TITER (05/17/2021 10:52 AM DENTAL INSURANCE COORDINATOR) F-Actin Antibody IgG 13 0 - 19 Units 05/19/2021 11:56 PM DENTAL INSURANCE COORDINATOR [employer] ([facility]) Comment: If F-Actin (Smooth Muscle) Antibody, IgG is negative, the Smooth Muscle Antibody titer by IFA is not performed. REFERENCE INTERVAL: F-Actin (Smooth Muscle) Antibody, IgG by REGI 19 Units or less ....... Negative 20 - 30 Units .......... Weak Positive-Suggest repeat testing in two to three weeks with fresh specimen. 31 Units or greater..... Positive-Suggestive of autoimmune hepatitis type 1 or chronic active hepatitis. F-actin IgG antibodies have been shown to have increased sensitivity for autoimmune hepatitis (AIH) but lower specificity than smooth muscle antibodies (SMA). F-actin IgG antibodies can also be seen in SMA-negative disease controls (non-AIH), especially in patients with primary biliary cirrhosis and chronic hepatitis C infections. Some patients with AIH may be SMA-positive but negative for F-actin IgG. Consider testing for SMA by IFA if suspicion for AIH is strong. Performed By: [facility] [address] [place] [address] Valver: Brittni Watson MD Blood BLOOD SPECIMEN / Unknown Lab Venipuncture / Unknown 05/17/2021 10:52 AM DENTAL INSURANCE COORDINATOR 05/17/2021 11:49 AM DENTAL INSURANCE COORDINATOR Ori Zarco MD LAB - SEROLO GY ORDERABLES Performing Organization Address [facility] [[email or web address]] Co de Phone Number [facility] [employer] [facility]) [address] * MITOCHONDRIAL ANTIBODY SCREEN (05/17/2021 10:52 AM DENTAL INSURANCE COORDINATOR) Mitochondrial M2 Antibody 4.8 0.0 - 24.9 Units 05/19/2021 11:56 PM DENTAL INSURANCE COORDINATOR [facility] ([facility]) Comment: REFERENCE INTERVAL: Mitochondrial (M2) Antibody, IgG 20.0 Units or less ......... Negative 20.1 - 24.9 Units........... Equivocal 25.0 Units or greater....... Positive Anti-mitochondrial antibodies (AMA) are thought to be present in 90-95% of patients with primary biliary cholangitis (PBC). However, the frequency of detected antibodies may be cohort or assay dependent, as lower sensitivities have been reported. Not all PBC patients are positive for AMA; some patients may be positive for SP100 and/or GP210 antibodies. A negative result does not rule out PBC. Performed By: [facility] [address] [place] [address] Valver: Brittni Watson MD Blood BLOOD SPECIMEN / Unknown Lab Venipuncture / Unknown 05/17/2021 10:52 AM DENTAL INSURANCE COORDINATOR 05/17/2021 11:49 AM DENTAL INSURANCE COORDINATOR Ori Zarco MD LAB - CHEMIS TRY ORDERABLES [facility] [employer] ([facility]) [address] * REJI BLOOD SCREEN W/REFLEX TITER (05/17/2021 10:52 AM DENTAL INSURANCE COORDINATOR) REJI IgG None Detected None Detected 05/20/2021 8:08 AM DENTAL INSURANCE COORDINATOR [employer] ([facility]) Comment: If suspicion of connective tissue disease is strong and REJI EIA is negative, consider testing for REJI by IFA ([id number]). INTERPRETIVE INFORMATION: Anti-Nuclear Antibodies (REJI), IgG by REGI Antinuclear Antibodies (REJI), IgG by REGI: REJI specimens are screened using enzyme-linked immunosorbent assay (REGI) methodology. All REGI results reported as Detected are further tested by indirect fluorescent assay (IFA) using HEp-2 substrate with an IgG-specific conjugate. The REJI REGI screen is designed to detect antibodies against dsDNA, histones, SS-A (Ro), SS-B (La), Betancourt, Betancourt/MOLD CLEANER, Scl-70, Hannah-1, centromeric proteins, other antigens extracted from the HEp-2 cell nucleus. REJI REGI assays have been reported to have lower sensitivities than REJI IFA for systemic autoimmune rheumatic diseases (SARD). Negative results do not necessarily rule out SARD. Performed By: [employer] [address] [place] [address] Valver: Brittni Watson MD Blood BLOOD SPECIMEN / Unknown Lab Venipuncture / Unknown 05/17/2021 10:52 AM DENTAL INSURANCE COORDINATOR 05/17/2021 11:49 AM DENTAL INSURANCE COORDINATOR Ori Zarco MD LAB - CHEMIS TRY ORDERABLES [employer] ([facility]) [address] [place] [address], [facility] * MICROSOMAL ANTIBODY LIVER/KIDNEY (05/17/2021 10:52 AM DENTAL INSURANCE COORDINATOR) Liver/Kidney Microsomal Antibody IgG <1:20 <1:20 05/20/2021 11:09 PM DENTAL INSURANCE COORDINATOR [facility] [employer] ([facility]) Comment: INTERPRETIVE INFORMATION: Ccxzl-Fpmzqi-Wvwxumaij Abs, IgG Liver-Kidney Microsome IgG antibody (anti-LKM), as detected by indirect immunofluorescent antibody (IFA) techniques, may be observed in patients with autoimmune hepatitis type 2 (AIH-2), AIH-2 associated with autoimmune aoexqbyruxmpsocqtq-tofsoxmwbkf-opctmyzzap dystrophy (APECED), viral hepatitis C or D, and some forms of drug-induced hepatitis. This IFA does not differentiate among the four types of LKM antibodies (LKM-1, LKM-2, LKM-3, and a fourth type that recognizes CY and CY antigens). Of these, anti-LKM-1 (cytochrome [id number]) IgG antibodies are considered specific for AIH-2. This test was developed and its performance characteristics determined by [facility]. It has not been cleared or approved by the US Food and Drug Administration. This test was performed in a CLIA certified laboratory and is intended for clinical purposes. Performed By: [place] [address] Valver: Brittni Watson MD Blood BLOOD SPECIMEN / Unknown Lab Venipuncture / Unknown 05/17/2021 10:52 AM DENTAL INSURANCE COORDINATOR 05/17/2021 11:49 AM DENTAL INSURANCE COORDINATOR Ori Zarco MD LAB - CHEMIS TRY ORDERABLES Performing Organization Address City/[facility] [[email or web address]] Co de Phone Number [facility]) [address] [place] [address] * CERULOPLASMIN (05/17/2021 10:52 AM DENTAL INSURANCE COORDINATOR) Ceruloplasmin 36 20 - 60 mg/dL 05/17/2021 12:30 PM DENTAL INSURANCE COORDINATOR [facility] Blood BLOOD SPECIMEN / Unknown Lab Venipuncture / Unknown 05/17/2021 10:52 AM DENTAL INSURANCE COORDINATOR 05/17/2021 11:49 AM DENTAL INSURANCE COORDINATOR Ori Zarco MD LAB - CHEMIS TRY ORDERABLES Performing Organization Address City/[facility] [[email or web address]] Co de Phone Number [address] [address], [facility] [phone] * YRWKK-3-ZBYYSYFEUJQ BLOOD (05/17/2021 10:52 AM DENTAL INSURANCE COORDINATOR) Rheuq-3-Clzthc ypsin 131 90 - 200 mg/dL 05/17/2021 12:30 PM DENTAL INSURANCE COORDINATOR [facility] Blood BLOOD SPECIMEN / Unknown Lab Venipuncture / Unknown 05/17/2021 10:52 AM DENTAL INSURANCE COORDINATOR 05/17/2021 11:49 AM DENTAL INSURANCE COORDINATOR Ori Zarco MD LAB - CHEMIS TRY ORDERABLES Performing Organization Address City/[facility]/ZIP Co de Phone Number [address] [place] [address], [facility] [phone] * HEPATIC FUNCTION PANEL (05/17/2021 10:52 AM DENTAL INSURANCE COORDINATOR) [facility] Protein Total 7.2 6.0 - 8.3 g/dL 12:[address] [facility] Albumin 4.0 3.4 - 5.0 g/dL 05/17/2021 12:[address] [facility] Bilirubin Total 0.4 0.2 - 1.2 mg/dL 04/29 12:[address] [facility] Bilirubin Conjugated 0.2 0.1 - 0.5 mg/dL 05/17/2021 12:[address] [facility] Bilirubin Unconjugated 0.2 Unconjugated Bilirubin is a calculated value: Reference ranges have not been established. mg/dL 05/17/2021 12:[address] [facility] Alkaline Phosphatase 132 40 - 150 U/L 05/17/2021 12:[address] [facility] ALT 25 5 - 55 U/L 05/17/2021 12:[address] [facility] AST 23 5 - 34 U/L 05/17/2021 12:[address] [facility] Albumin/Globulin Ratio 1.3 1.1 - 2.3 05/17/2021 12:[address] [facility] Blood BLOOD SPECIMEN / Unknown Lab Venipuncture / Unknown 05/17/2021 10:52 AM DENTAL INSURANCE COORDINATOR 05/17/2021 11:57 AM DENTAL INSURANCE COORDINATOR Ori Zarco MD LAB - CHEMIS TRY ORDERABLES [facility] [address] [place] [address], [facility] [phone] * HEPATITIS B SURFACE ANTIBODY (05/17/2021 10:52 AM DENTAL INSURANCE COORDINATOR) [facility] Hepatitis B Virus Surface Antibody Non-react curtis Non-react curtis 05/17/2021 12:48 PM DENTAL INSURANCE COORDINATOR [facility] Comment: < 8 mIU/mL Hepatitis B surface Antibody (HBsAb). Nonreactive for HBsAb - individual is considered not immune to Hepatitis B Virus infection. Hepatitis B Surface Antibody Quantitative 0.3 <8.0 mIU/mL 05/17/2021 12:48 PM DENTAL INSURANCE COORDINATOR [facility] Comment: Hepatitis B Surface Antibody Numeric Result Interpretation: Nonreactive: <8.0 mIU/mL Indeterminate: 8.0 - 12.0 mIU/mL Reactive: >12.0 mIU/mL Blood BLOOD SPECIMEN / Unknown Lab Venipuncture / Unknown 05/17/2021 10:52 AM DENTAL INSURANCE COORDINATOR 05/17/2021 11:49 AM DENTAL INSURANCE COORDINATOR Ori Zarco MD LAB - CHEMIS TRY ORDERABLES Performing Organization Address City/[facility] [[email or web address]] Co de Phone Number [address] [address], [facility] [phone] * HEPATITIS B CORE ANTIBODY (05/17/2021 10:52 AM DENTAL INSURANCE COORDINATOR) HBc Antibody Total Non-reacti ve Non-reacti ve 05/17/2021 12:48 PM DENTAL INSURANCE COORDINATOR [facility] Blood BLOOD SPECIMEN / Unknown Lab Venipuncture / Unknown 05/17/2021 10:52 AM DENTAL INSURANCE COORDINATOR 05/17/2021 11:49 AM DENTAL INSURANCE COORDINATOR Ori Zarco MD LAB - CHEMIS TRY ORDERABLES Performing Organization Address [facility] [[email or web address]] Co de Phone Number [address] [address], [facility] [phone] * HEPATITIS B SURFACE ANTIGEN W RFLX CONFIRMATION (05/17/2021 10:52 AM DENTAL INSURANCE COORDINATOR) Hepatitis B Virus Surface Antigen Non-reacti ve Non-reacti ve 05/17/2021 12:48 PM DENTAL INSURANCE COORDINATOR [facility] Blood BLOOD SPECIMEN / Unknown Lab Venipuncture / Unknown 05/17/2021 10:52 AM DENTAL INSURANCE COORDINATOR 05/17/2021 11:49 AM DENTAL INSURANCE COORDINATOR Ori Zarco MD LAB - CHEMIS TRY ORDERABLES [facility] [address] [place] [address], [place] [phone] * IGG BLOOD (05/17/2021 10:52 AM DENTAL INSURANCE COORDINATOR) [facility] IgG 1,004 767-1,590 mg/dL 05/17/2021 12:29 PM DENTAL INSURANCE COORDINATOR [facility] Blood BLOOD SPECIMEN / Unknown Lab Venipuncture / Unknown 05/17/2021 10:52 AM DENTAL INSURANCE COORDINATOR 05/17/2021 11:49 AM DENTAL INSURANCE COORDINATOR Ori Zarco MD LAB - CHEMIS TRY ORDERABLES Performing Organization Address City/[facility]/ZIP Co de Phone Number [address] [address], [place] [phone] * HEPATITIS C ANTIBODY (05/17/2021 10:52 AM DENTAL INSURANCE COORDINATOR) [facility] Hepatitis C Antibody Non-react curtis Non-reac tive 05/17/2021 12:48 PM DENTAL INSURANCE COORDINATOR [facility] Comment:Hepatitis C Antibody screen indicates no serologic evidence of past or current infection with Hepatitis C Virus. Patients with unexplained liver disease who are immunocompromised or suspected of having acute Hepatitis C infection may benefit from Nucleic Acid Test (MELL) for Hepatitis C Viral RNA to confirm Hepatitis C status. Blood BLOOD SPECIMEN / Unknown Lab Venipuncture / Unknown 05/17/2021 10:52 AM DENTAL INSURANCE COORDINATOR 05/17/2021 11:49 AM DENTAL INSURANCE COORDINATOR Ori Zarco MD LAB - CHEMIS TRY ORDERABLES [address] [address], [place] [phone] * HEPATITIS A ANTIBODY (05/17/2021 10:52 AM DENTAL INSURANCE COORDINATOR) [facility] Hepatitis A Virus Antibody Total Negative Negative 05/19/2021 4:12 PM DENTAL INSURANCE COORDINATOR [employer] ([facility]) Comment: Performed by [facility], [address] [place] [id number] [email or web address], Brittni Watson MD, Lab. Director Blood BLOOD SPECIMEN / Unknown Lab Venipuncture / Unknown 05/17/2021 10:52 AM DENTAL INSURANCE COORDINATOR 05/17/2021 11:49 AM DENTAL INSURANCE COORDINATOR Ori Zarco MD LAB - CHEMIS TRY ORDERABLES [address] * LIPID PROFILE (05/17/2021 10:52 AM DENTAL INSURANCE COORDINATOR) Cholesterol Total 138 <200 mg/dL 05/17/2021 12:[address] [facility] HDL 66 >40 mg/dL 05/17/2021 12:[address] [facility] Comment: ATP III Classification of HDL Cholesterol: <40 mg/dL: Considered a major risk factor. >60 mg/dL: Considered a negative risk factor. LDL Calculated 61 <100 mg/dL 05/17/2021 12:[address] [facility] Comment: ATP III Classification of LDL Cholesterol: <100 mg/dL: Optimal 100 - 129 mg/dL: Near Optimal/Above Optimal 130 - 159 mg/dL: Borderline High 160 - 189 mg/dL: High >190 mg/dL: Very High Triglycerides 53 <150 mg/dL 05/17/2021 12:[address] [facility] Comment: ATP III Classification of Triglycerides: <150 mg/dL: Normal 150 - 199 mg/dL: Borderline High 200 - 400 mg/dL: High >500 mg/dL: Very High Blood BLOOD SPECIMEN / Unknown Lab Venipuncture / Unknown 05/17/2021 10:52 AM DENTAL INSURANCE COORDINATOR 05/17/2021 11:57 AM DENTAL INSURANCE COORDINATOR Ori Zarco MD LAB - CHEMIS TRY ORDERABLES [facility] [address] [place] [address], [facility] [phone] * [place] LIVER ELASTOGRAPHY (05/17/2021 10:27 AM DENTAL INSURANCE COORDINATOR) Narrative Joe Laboy MD - 05/17/2021 10:27 AM DENTAL INSURANCE COORDINATOR Joe Laboy MD 05/20/2021 11:17 AM Diagnosis: Abnormal LFT RN verified patient not , no implanted devices and NPO for prior 3 hours. Procedure explained and consent signed. Date of Exam: 05/17/2021 Liver Stiffness: (LSM, kPa) median: 9.5 IQR (interquartile range): 1.8 IQR/Median% (ideally < 30%): 19 CAP (controlled attenuation parameter): 376 Technical Difficulty: None Ordering Provider: Ori Flores MD Phone Fax Fibroscan interpretation: I have personally reviewed the Fibroscan report and associated tracings. The calculated Liver Stiffness Measurement (LSM, kPa) indicates that: The probability of advanced liver fibrosis is: moderate. The loss of ultrasound signal, (controlled attenuation parameter, CAP [dB/m]), indicates that the probability of hepatic steatosis is: high. Joe Laboy MD The following criteria are used to indicate the probability of advanced (stage 3-4) fibrosis: < 7.0 kPa: low 7.0-8.9 kPa: low to moderate 9.0-14.9 kPa: moderate 15-20 kPa: high > 20 kPa: very high Liver stiffness > 20 kPa is also associated with a high probability of complications of portal hypertension including varices and ascites. Liver stiffness > 50 kPa is associated with a high risk of variceal bleeding. These interpretations are based on the following published data: Shanta PJ, Joaquin M, Patricia M, et al. Accuracy of FibroScan controlled attenuation parameter and liver stiffness measurement in assessing steatosis and fibrosis in patients with nonalcoholic fatty liver disease. Gastroenterology 2019;156:7821-2820. Jordan MS, Nic R, Van Dee Dee ML, et al. Vibration-controlled transient elastography to assess fibrosis and steatosis in patients with nonalcoholic fatty liver disease. Clin Gastroenterol Hepatol 2019;17:156-163. Note: 1. Fibroscan cannot reliably identify earlier stages of fibrosis (ie distinguish F0 from F1 and F2) and thus a histologic stage cannot be predicted from the Fibroscan reading. 2. Assessing the likelihood of advanced fibrosis in patients with indeterminate liver stiffness measurement (LSM) by Fibroscan (e.g., 8-15 kPa) can be improved by also calculating the FIB4 score (Scar et al. Hepatology Communications 2019;3:0362-0048) or NAFLD Fibrosis score (Aldana et al. Clinical Gastroenterology and Hepatology 2019;17:0084-8005. from routine clinical data. 3. Liver stiffness can be increased by factors other than fibrosis including passive congestion, infiltrative processes, active alcoholism, biliary obstruction and marked inflammation. The interpretation of the Fibroscan result provided above may not have taken such clinical factors into account. Disease etiology also influences Fibroscan cutoff values for fibrosis stages and the following cutoffs have been proposed (Shelley et al, Clin Gastro Hepatol 2015; 13:27-36): Cutoffs for Stage 3 and Stage 4 fibrosis respectively: Hepatitis B: >9 and >11.7 kPa Hepatitis C: >9.5 and >12.5 kPa HCV-HIV: >11 and >14 kPa Cholestatic liver diseases: >10 and >17.9 kPa NAFLD/BATES: >10 and >14 kPa CAP estimates of steatosis: normal <200 dB/m mild 200 to 250 dB/m moderate 250-290 dB/m substantial > 290 dB/m (Note that Fibroscan is not a quantitative measure of liver fat.) These criteria are estimates and may change as additional supporting data becomes available. [email or web address] Ori Zarco MD PROCEDURE/OK NOR SURGICAL ORDERABLES * XR SHOULDER BILAT 2VW (10/01/2020 10:25 AM CDT) Anatomical Region Laterality Modality Upper Extremity Radiographic Diana ging 10/01/2020 1:18 PM CDT Impressions 10/01/2020 1:38 PM CDT No acute osseous abnormality. Edited by Jeanine Martin on 10/01/2020 1:29 PM *Reading Radiologist: Harley Galvez on 10/01/2020 at 1:38 PM Narrative 10/01/2020 1:38 PM CDT BILATERAL SHOULDERS FOUR VIEWS EACH INDICATION: Bilateral shoulder pain. FINDINGS: Four views of each shoulder without prior for comparison show no acute fracture, subluxation or dislocation. Procedure Note Harley Galvez MD - 10/01/2020 BILATERAL SHOULDERS FOUR VIEWS EACH INDICATION: Bilateral shoulder pain. FINDINGS: Four views of each shoulder without prior for comparison show no acute fracture, subluxation or dislocation. IMPRESSION No acute osseous abnormality. Edited by Jeanine Martin on 10/01/2020 1:29 PM *Reading Radiologist: Harley Galvez on 10/01/2020 at 1:38 PM Virgil Negron II, MD DIAGNOSTIC IMAGING ORDERABLES * XR CERVICAL SPINE 4 OR 5VW (10/01/2020 10:25 AM CDT) Anatomical Region Laterality Modality Spine Radiographic Diana ging 10/01/2020 11:5 8 AM CDT Impressions 10/01/2020 12:02 PM CDT There is loss of the normal cervical lordosis. There is no abnormal motion on flexion or extension to suggest instability. Disc space narrowing is present at C5-6 and C6-7. *Reading Radiologist: Tabby Parish on 10/01/2020 at 12:02 PM Narrative 10/01/2020 12:02 PM CDT Radiographic Series of Cervical Spine Indication: Neck pain, cervical disc degeneration. Findings: 6 views of the cervical spine are submitted. There is loss of the normal cervical lordosis. This is a nonspecific finding which may be secondary to muscle spasm or patient positioning. There is no abnormal increased motion on flexion or extension to suggest instability. No prevertebral soft tissue swelling is seen. Mild disc space narrowing is present at C5-6 with moderate disc space narrowing at C6-7. No acute bony injury is appreciated. Procedure Note Tabby Parish MD - 10/01/2020 Radiographic Series of Cervical Spine Indication: Neck pain, cervical disc degeneration. Findings: 6 views of the cervical spine are submitted. There is loss of the normal cervical lordosis. This is a nonspecific finding which may be secondary to muscle spasm or patient positioning. There is no abnormal increased motion on flexion or extension to suggest instability. No prevertebral soft tissue swelling is seen. Mild disc space narrowing is present at C5-6 with moderate disc space narrowing at C6-7. No acute bony injury is appreciated. IMPRESSION There is loss of the normal cervical lordosis. There is no abnormal motion on flexion or extension to suggest instability. Disc space narrowing is present at C5-6 and C6-7. 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 Otherwise unremarkable MRI/MRCP. Dictated by Andrea Hansen MD (chairman president and chief executive officer). I, Dr. TOSHIA HEIN have personally reviewed and interpreted this examination/study. This report was electronically signed by TOSHIA HEIN on 08/09/2020 9:23 AM . Narrative 08/09/2020 9:23 AM DENTAL INSURANCE COORDINATOR EXAMINATION: 1. Magnetic resonance imaging (MRI) of the abdomen without and with contrast 2. Magnetic resonance cholangiopancreatography (MRCP) with 3-D reconstruction and analysis HISTORY: R10.13: Epigastric pain TECHNIQUE: MRI of the abdomen was performed prior to and following the uneventful administration of 20 mL of Multihance intravenous gadolinium contrast according to standard protocol, including dynamic imaging for MRCP. Image data was analyzed on a dedicated 3-D workstation for the MRCP portion of the exam. COMPARISON: No prior study is available for comparison at the time of this dictation. FINDINGS: MRI: The visible lung bases are clear. There is no evidence of hepatic steatosis or cirrhosis. No arterially-enhancing liver lesion suspicious for hepatocellular carcinoma is identified. The hepatic arterial anatomy is conventional. The portal vein and its major branches are patent. The hepatic veins are patent. The gallbladder is surgically absent. The pancreas has normal signal intensity. There is no peripancreatic fluid collection. No pancreatic mass is identified. The spleen, adrenal glands, and kidneys are normal. No free intraperitoneal fluid is identified. There are postoperative findings from a Coy-en-Y gastric bypass and the visualized bowel loops are unremarkable without evidence of wall thickening or obstruction. MRCP: The intrahepatic biliary ducts are nondilated. There is mild dilatation of the common bile duct measuring up to 9 mm, which is likely secondary to the post cholecystectomy state. No filling defect or stricture is seen in the biliary system. The pancreatic duct is nondilated. Procedure Note Toshia Hein MD - 08/09/2020 EXAMINATION: 1. Magnetic resonance imaging (MRI) of the abdomen without and with contrast 2. Magnetic resonance cholangiopancreatography (MRCP) with 3-D reconstruction and analysis HISTORY: R10.13: Epigastric pain TECHNIQUE: MRI of the abdomen was performed prior to and following the uneventful administration of 20 mL of Multihance intravenous gadolinium contrast according to standard protocol, including dynamic imaging for MRCP. Image data was analyzed on a dedicated 3-D workstation for theMRCP portion of the exam. COMPARISON: No prior study is available for comparison at the time ofthis dictation. FINDINGS: MRI: The visible lung bases are clear. There is no evidence of hepatic steatosis or cirrhosis. No arterially-enhancing liver lesion suspicious for hepatocellularcarcinoma is identified. The hepatic arterial anatomy is conventional. The portal vein and its major branches are patent. The hepatic veins are patent. The gallbladder is surgically absent. The pancreas has normal signal intensity. There is no peripancreatic fluid collection. No pancreaticmass is identified. The spleen, adrenal glands, and kidneys are normal. No free intraperitoneal fluid is identified. There are postoperative findingsfrom a Coy-en-Y gastric bypass and the visualized bowel loops areunremarkable without evidence of wall thickening or obstruction. MRCP: The intrahepatic biliary ducts are nondilated. There is mild dilatationof the common bile duct measuring up to 9 mm, which is likely secondary to the post cholecystectomy state. No filling defect or stricture is seenin the biliary system. The pancreatic duct is nondilated. IMPRESSION: Postoperative findings from cholecystectomy and Coy-en-Y gastricbypass. Otherwise unremarkable MRI/MRCP. Dictated by Andrea Hansen MD (chairman president and chief executive officer). I, Dr. TOSHIA HEIN have personally reviewed and interpreted this examination/study. This report was electronically signed by TOSHIA HEIN on :23 AM . Patricia Fischer MD MR ORDERABLES * HC THORACIC SPINE 3 VW (07/07/2020) Eduardo Herrera MD [facility] IM[facility] * EGD (07/06/2020 7:02 AM DENTAL INSURANCE COORDINATOR) Report Endoscopy POC _ Patient Name: Dory Barnes Procedure Date: 07/06/2020 7:02 AM Date of : 1980 Admit Type: Outpatient Age: 39 Gender: Female Attending MD: Eduardo Herrera MD _ Procedure: Upper GI endoscopy Indications: Gastrojejunal ulcer Providers: Eduardo Herrera MD (Doctor) Referring MD: Henry Ruiz (Referring MD) Medicines: Propofol per Anesthesia Complications: No immediate complications. _ Procedure: Pre-Anesthesia Assessment: - Prior to the procedure, a History and Physical was performed, and patient medications and allergies were reviewed. The patient's tolerance of previous anesthesia was also reviewed. The risks and benefits of the procedure and the sedation options and risks were discussed with the patient. All questions were answered, and informed consent was obtained. Prior Anticoagulants: The patient has taken no previous anticoagulant or antiplatelet agents. ASA Grade Assessment: II - A patient with mild systemic disease. After reviewing the risks and benefits, the patient was deemed in satisfactory condition to undergo the procedure. After obtaining informed consent, the endoscope was passed under direct vision. Throughout the procedure, the patient's blood pressure, pulse, and oxygen saturations were monitored continuously. The Endoscope was introduced through the mouth, and advanced to the efferent jejunal loop. The upper GI endoscopy was accomplished without difficulty. The patient tolerated the procedure well. Findings: The examined esophagus was normal. The entire examined stomach was normal. Biopsies were taken with a cold forceps for Helicobacter pylori testing using CLOtest. The examined jejunum was normal. _ Impression: - Normal esophagus. - Normal stomach. Biopsied. - Normal examined jejunum. Recommendation: - Advance diet as tolerated. Procedure Code(s): --- Professional --- 56334, Esophagogastroduo denoscopy, flexible, transoral; with biopsy, single or multiple --- Technical --- 51835, Esophagogastroduo denoscopy, flexible, transoral; with biopsy, single or multiple Diagnosis Code(s): --- Professional --- K28.9, Gastrojejunal ulcer, unspecified as acute or chronic, without hemorrhage or perforation --- Technical --- K28.9, Gastrojejunal ulcer, unspecified as acute or chronic, without hemorrhage or perforation CPT copyright 2017 [employer]. All rights reserved. The codes documented in this report are preliminary and upon grader meat review may be revised to meet current compliance requirements. __ Eduardo Herrera MD 07/06/2020 8:33:22 AM Number of Addenda: 0 Note Initiated On: 07/06/2020 7:02 AM [facility] ENDOSCOPY 07/06/2020 7:02 AM DENTAL INSURANCE COORDINATOR Eduardo Herrera MD GI PROCEDURE ORDERAB LES [facility] [address] * MRI ABDOMEN (06/08/2020) Anatomical Region Laterality Modality Other Eduardo Herrera MD SCANNING ONLY * CT ABDOMEN PELVIS IMAGE (06/05/2020) Anatomical Region Laterality Modality Other Eduardo Herrera MD IMAGING * SELENIUM (05/23/2020 12:18 PM DENTAL INSURANCE COORDINATOR) Only the most recent of2 resultswithin the time period is included. Selenium 148 91 - 198 ug/L [facility] INSURANCE BILL Comment: Effective July 02, 2020 the reference interval for 611308 Selenium, Serum/Plasma will be changing to: Age Male Female 0 - 4 months 25 - 111 25 - 111 5 months - 10 months 23 - 131 23 - 131 11 months - 1 year 38 - 150 38 - 150 2 years - 5 years 59 - 168 59 - 168 6 years - 12 years 73 - 177 73 - 177 13 years - 18 years 81 - 188 81 - 188 > 18 years 93 - 198 93 - 198 FASTING Blood BLOOD SPECIMEN / Unknown 05/23/2020 12:18 PM DENTAL INSURANCE COORDINATOR 05/23/2020 Narrative [facility] INSURANCE BILL - 05/28/2020 9:05 AM DENTAL INSURANCE COORDINATOR Test(s) 002007-[id number], Serum/Plasma was developed and its performance characteristics determined by [facility]. It has not been cleared or approved by the Food and Drug Administration. Resulting Agency Comment Lab Testing performed at: [facility] [id number] Blanca Kamara ROOM SERVICE FOOD SERVICE ATTENDANT-BENZOL OPERATOR LAB - CHEMIS TRY ORDERABLES [facility] INSURANCE BILL [address] [place] [address] * MRI CERVICAL SPINE WO CONTRAST (04/19/2020) Only the most recent of2 resultswithin the time period is included. Anatomical Region Laterality Modality Pelvis Magnetic Resonan ce Jignesh Darling MD MR ORDERABLES * IRON BLOOD (11/29/2018 11:26 AM CDT) Only the most recent of3 resultswithin the time period is included. Iron 48 40 - 190 mcg/dL [facility] Comment: Test Performed at: [facility] [place] [address] [facility] [place] [address] COLLEEN GIFFORD DO,MPH Blood BLOOD SPECIMEN / Unknown 11/29/2018 11:26 AM CDT 11/29/2018 11:28 AM CDT Blanca Kamara ROOM SERVICE FOOD SERVICE ATTENDANT-BENZOL OPERATOR LAB - CHEMIS TRY ORDERABLES [employer] [address] [place] [address] * APHERESIS/TRANSFUSION ORDER (09/18/2018 3:15 AM CDT) Narrative 09/18/2018 3:15 AM CDT Ordered by an unspecified provider. Scanned Document NURSING - VITAL SIGN S AND ASSESSMENT * GROSS + MICRO EXAM (STL) (09/14/2018 10:02 AM CDT) Case Report Surgical Pathology Report Case: [id number] Authorizing Provider: Rickey Burnham MD Collected: 09/14/2018 10:02 AM Ordering Location: [facility] Received: 09/14/2018 10:06 AM Pathologist: Elham Ramachandran MD Specimen: Ovarian Cyst 09/16/2018 11:49 AM CDT [facility] Final Diagnosis Ovarian cyst, left, resection: -- Hemorrhagic corpus luteal cyst and benign serous cyst MC 09/16/2018 11:49 AM CDT [facility] Gross Description The specimen is received fixed in formalin in one container, labeled with the patient's name, Dory Barnes, and ovarian cyst, left, and consists of a 5.5 x 5.0 cm purple-loaiza membranous tissue with a thickness of 0.2 cm. A portion os submitted for frozen section as FSA1. The remainder of FSA1 is submitted in cassette A1. The specimen has a smooth, white-loaiza membranous lining. Pot Fireman sections are submitted in cassettes A2-A6. OEM/ns 09/16/2018 11:49 AM CDT [facility] Microscopic Description The permanent sections confirm the frozen section diagnosis. Sections show ovary with a hemorrhagic corpus luteal cyst and a benign serous cyst. The fallopian tube shows no pathologic diagnosis. 09/16/2018 11:49 AM CDT [facility] Disclaimer All histochemical and/or immunohistochemical results are interpreted with controls that demonstrate appropriate staining reactions before reporting results. Note on use of immunocytochemistry reagents: This test was developed and its performance characteristic determined by [facility], Department of Laboratory Medicine. It has not been cleared or approved by the U.S. Food and Drug Administration (FDA). The FDA has determined that such clearance or approval is not necessary. The test is used for clinical purpose. It should not be regarded as investigational or for research. This laboratory is certified to perform high complexity testing. 09/16/2018 11:49 AM CDT [facility] Embedded Images 09/16/2018 11:49 AM CDT [facility] Pathology/Cytolo gy OVARIAN CYST SPECIMEN / Unknown 09/14/2018 10:02 AM CDT 09/14/2018 10:06 AM CDT Rickey Burnham MD LAB - PATHOLOGY/CYT OLOGY ORDERABLES Performing Organization Address City/State/[facility] [[email or web address]] Co de Phone Number [facility] [address] [place] [address] * XR CHEST 2VW (09/09/2018 3:09 PM CDT) Anatomical Region Laterality Modality Chest Radiographic Diana ging 09/09/2018 3:12 PM CDT Narrative 09/09/2018 3:12 PM CDT Exam: PA and lateral views of the chest. History: Encounter for other preprocedural examination Findings/Impression: Comparison is made with prior dated January 21, 2017. No focal consolidation, pleural effusion, or pneumothorax is identified. The cardiac silhouette and mediastinal contours are normal. Reading Radiologist: Harley Flor MD on 09/09/2018 at 3:12 PM Procedure Note Harley Flor DO - 09/09/2018 Exam: PA and lateral views of the chest. History: Encounter for other preprocedural examination Findings/Impression: Comparison is made with prior dated January 21, 2017. No focal consolidation, pleural effusion, or pneumothorax is identified. The cardiac silhouette and mediastinal contours are normal. Reading Radiologist: Harley Flor MD on 09/09/2018 at 3:12 PM Rickey Burnham MD DIAGNOSTIC IMAGING ORDERABLES * EKG 12-LEAD (09/09/2018 2:49 PM CDT) Only the most recent of4 resultswithin the time period is included. Ventricular Rate 62 BPM [facility] Atrial Rate 62 BPM [facility] P-R Interval 168 ms [facility] QRS Duration ms 80 ms [facility] Q-T Interval ms 408 ms [facility] QTC Calculation (Bezet) 414 ms [facility] Calculated P [place] 37 degrees [facility] Calculated R [place] -9 degrees [facility] Calculated T [place] 15 degrees [facility] Interpretation EKG NORMAL SINUS RHYTHM NORMAL ECG NO PREVIOUS ECGS AVAILABLE Confirmed by MD JAMAR, YUSUF Alvarado ([id number]) on 09/10/2018 7:46:19 AM [facility] MUSE 09/09/2018 2:49 PM CDT 09/10/2018 7:46 AM CDT Rickey Burnham MD ECG ORDERABLES [facility] MUSE * PT-INR (04/27/2018 4:09 PM CDT) PT 10.2 9.5 - 11.6 sec 04/27/2018 4:28 PM CDT [facility] INR 0.9 0.9 - 1.1 04/27/2018 4:28 PM CDT [facility] Blood BLOOD SPECIMEN / Unknown Venipuncture / Unknown 04/27/2018 4:09 PM CDT 04/27/2018 4:07 PM CDT Narrative [facility] - 04/27/2018 4:28 PM CDT Conventional Warfarin Anticoagulant Therapy: INR Reference Range: 2.0-3.0 Intensive Warfarin Anticoagulant Therapy: INR Reference Range: 2.5-3.5 Margo Evans MD LAB - COAGULATION OR DERABLES [facility] [address] [place] [address] * LAB RESULTS ORDER (04/07/2017) Eduardo Herrera MD LAB - THERAPEUTIC DR UG MONITORING ORDERABLES * LAB (02/11/2017) Eduardo Herrera MD SCANNING ONLY * URINALYSIS COMPLETE W MICROSCOPIC (02/11/2017) Urine Eduardo Herrera MD LAB - URINALYSIS ORD ERABLES * CARDIAC EKG ORDER (01/26/2017 4:27 PM CDT) Only the most recent of2 resultswithin the time period is included. Narrative 01/26/2017 4:27 PM CDT Ordered by an unspecified provider. Scanned Document CARDIAC SERVICES ORD ERABLES * CT CHEST PE (01/21/2017 6:21 PM CDT) Anatomical Region Laterality Modality Chest Computed Tomogra phy 01/21/2017 6:45 PM CDT Impressions 01/21/2017 6:47 PM CDT Negative for pulmonary embolism. Narrative 01/21/2017 6:[address] OF THE CHEST WITH IV CONTRAST - PULMONARY EMBOLISM PROTOCOL INDICATION: Other chest pain. Palpitations. Post lap band surgery 1 week. TECHNIQUE: Axial images of the chest were made during the infusion of 80 mL Omnipaque 350 contrast, intravenously, as per the protocol for pulmonary embolism assessment. Sagittal, axial and coronal 2-D reformatted images were performed with the CT scanner. This report was transcribed with a computerized speech recognition system. In an effort to expedite patient care, it has not been adjusted for typographical, grammatical or syntax problems by a trained medical record librarians teacher. For questions about the report, please contact the Radiology Department. FINDINGS: I do not see any large, central intra-arterial filling defects in the pulmonary arteries. The lungs are clear of confluent infiltrates. There are no measurable pleural effusions. The heart size is normal. Some of the peripheral vessels are obscured by motion artifact. Procedure Note Iban Spain MD - 01/21/2017 CT OF THE CHEST WITH IV CONTRAST - PULMONARY EMBOLISM PROTOCOL INDICATION: Other chest pain. Palpitations. Post lap band surgery 1 week. TECHNIQUE: Axial images of the chest were made during the infusion of 80 mL Omnipaque 350 contrast, intravenously, as per the protocol for pulmonary embolism assessment. Sagittal, axial and coronal 2-D reformatted images were performed with the CT scanner. This report was transcribed with a computerized speech recognition system. In an effort to expedite patient care, it has not been adjusted for typographical, grammatical or syntax problems by a trained medical record librarians teacher. For questions about the report, please contact the Radiology Department. FINDINGS: I do not see any large, central intra-arterial filling defects in the pulmonary arteries. The lungs are clear of confluent infiltrates. There are no measurable pleural effusions. The heart size is normal. Some of the peripheral vessels are obscured by motion artifact. IMPRESSION Negative for pulmonary embolism. Gaviota Mike MD CT ORDERABLES * CARDIAC ECHOCARDIOGRAM COMPLETE ORDER (01/20/2017 2:34 AM CDT) Narrative 01/20/2017 2:34 AM CDT Ordered by an unspecified provider. Scanned Document ECHO ORDERABLES * XR HIP 2+ VW RIGHT (01/18/2017 3:42 PM CDT) Anatomical Region Laterality Modality Pelvis, Lower Extremity [facility] 01/18/2017 3:51 PM CDT Narrative 01/18/2017 3:51 PM CDT Right hip Indication for examination: Right hip pain 2 views of the right hip show no fracture or dislocation. Articulations appear intact. Bones are well-mineralized. CONCLUSION: Unremarkable 2 view right hip series. Procedure Note Aristides Kim MD - 01/18/2017 Right hip Indication for examination: Right hip pain 2 views of the right hip show no fracture or dislocation. Articulations appear intact. Bones are well-mineralized. CONCLUSION: Unremarkable 2 view right hip series. Mickey Zelaya MD DIAGNOSTIC IMAGING O RDERABLES * XR FEMUR 2 VW RIGHT (01/18/2017 3:42 PM CDT) Anatomical Region Laterality Modality Lower Extremity Radiographic Diana ging 01/18/2017 3:51 PM CDT Narrative 01/18/2017 3:51 PM CDT Right femur Indication for examination: Right femur pain AP and lateral views of the right femur show no fracture. There is no bone destruction or periosteal new bone formation. Articulations are grossly intact. CONCLUSION: Unremarkable right femur Procedure Note Aristides Kim MD - 01/18/2017 Right femur Indication for examination: Right femur pain AP and lateral views of the right femur show no fracture. There is no bone destruction or periosteal new bone formation. Articulations are grossly intact. CONCLUSION: Unremarkable right femur Mcikey Zelaya MD DIAGNOSTIC IMAGING O RDERABLES * MRI LUMBAR SPINE WO CONTRAST (01/18/2017 12:12 PM CDT) Anatomical Region Laterality Modality Spine Magnetic Resonan ce 01/18/2017 12:4 5 PM CDT Narrative 01/18/2017 12:49 PM CDT MRI Lumbar Spine Indication for examination: Low back pain, right leg pain with lumbar radiculopathy. Technique: Noncontrast T1 and T2-weighted sagittal and axial images of the lumbar spine are obtained. Comparison is made with plain films. Sagittal images show degenerative change at L4-5 and L5-S1. There is bilateral spondylolysis at L5, with anterior spondylolisthesis L5 on S1 correlating with plain film appearance. There is mild retrolisthesis L4 on L5. There is mild posterior bulge at L4-5 and L5-S1. No spinal stenosis or thecal sac compression identified in sagittal projection. Remaining lumbar disc space levels are unremarkable in sagittal projection. There is no fracture or bone marrow edema. No mass lesion or fluid collection. No abnormality identified at the conus or visualized lower thoracic spinal cord. There is mild degenerative change lower thoracic spine. Axial images are obtained from T12-L1 through the level of L5-S1. T12-L1, L1-L2, L2-3, L3-4: Normal in axial projection. L4-5: Mild central disc protrusion without nerve root or thecal sac compression. Foramina are patent. L5-S1: Bilateral spondylolysis. Degenerative change with mild diffuse annular bulge. Mild facet hypertrophy. There is encroachment L5 foramen bilaterally at this level. This is slightly greater on the right and the left. No thecal sac compression. CONCLUSION: Spondylolysis with anterior spondylolisthesis L5 on S1. Diffuse annular bulge L5-S1. Findings result in encroachment L5 foramen bilaterally right slightly greater than left. Graft degenerative change with mild central disc protrusion L4-5. This is noncompressive. No spinal stenosis or thecal sac compression. No other nerve root or foraminal encroachment. No fracture or acute bone marrow edema. Procedure Note Aristides Kim MD - 01/18/2017 MRI Lumbar Spine Indication for examination: Low back pain, right leg pain with lumbar radiculopathy. Technique: Noncontrast T1 and T2-weighted sagittal and axial images of the lumbar spine are obtained. Comparison is made with plain films. Sagittal images show degenerative change at L4-5 and L5-S1. There is bilateral spondylolysis at L5, with anterior spondylolisthesis L5 on S1 correlating with plain film appearance. There is mild retrolisthesis L4 on L5. There is mild posterior bulge at L4-5 and L5-S1. No spinal stenosis or thecal sac compression identified in sagittal projection. Remaining lumbar disc space levels are unremarkable in sagittal projection. There is no fracture or bone marrow edema. No mass lesion or fluid collection. No abnormality identified at the conus or visualized lower thoracic spinal cord. There is mild degenerative change lower thoracic spine. Axial images are obtained from T12-L1 through the level of L5-S1. T12-L1, L1-L2, L2-3, L3-4: Normal in axial projection. L4-5: Mild central disc protrusion without nerve root or thecal sac compression. Foramina are patent. L5-S1: Bilateral spondylolysis. Degenerative change with mild diffuse annular bulge. Mild facet hypertrophy. There is encroachment L5 foramen bilaterally at this level. This is slightly greater on the right and the left. No thecal sac compression. CONCLUSION: Spondylolysis with anterior spondylolisthesis L5 on S1. Diffuse annular bulge L5-S1. Findings result in encroachment L5 foramen bilaterally right slightly greater than left. Graft degenerative change with mild central disc protrusion L4-5. This is noncompressive. No spinal stenosis or thecal sac compression. No other nerve root or foraminal encroachment. No fracture or acute bone marrow edema. Eduardo Herrera MD MR ORDERABLES * XR LUMBAR SPINE FLEX/EXT 2 VIEW (01/18/2017 9:25 AM CDT) Anatomical Region Laterality Modality Spine Radiographic Diana ging 01/18/2017 9:37 AM CDT Narrative 01/18/2017 9:38 AM CDT Lumbar spine, flexion and extension Indication for examination: Low back pain Flexion and extension lateral views of the lumbar spine are obtained. There is approximately 12 mm anterior spondylolisthesis L5 on S1. This is grossly stable in flexion and extension. There is mild reduction in height at the L5-S1 disc space. Remaining disc space height is maintained. No instability is identified. No acute vertebral body fracture is observed. CONCLUSION: Anterior spondylolisthesis L5 on S1, grossly stable in flexion and extension. Procedure Note Aristides Kim MD - 01/18/2017 Lumbar spine, flexion and extension Indication for examination: Low back pain Flexion and extension lateral views of the lumbar spine are obtained. There is approximately 12 mm anterior spondylolisthesis L5 on S1. This is grossly stable in flexion and extension. There is mild reduction in height at the L5-S1 disc space. Remaining disc space height is maintained. No instability is identified. No acute vertebral body fracture is observed. CONCLUSION: Anterior spondylolisthesis L5 on S1, grossly stable in flexion and extension. Eduardo Herrera MD DIAGNOSTIC IMAGING O RDERABLES * FL FLUORO UPPER GI TRACT + KUB (01/15/2017 10:55 AM CDT) Only the most recent of3 resultswithin the time period is included. Anatomical Region Laterality Modality Abdomen Radiographic Diana ging 01/15/2017 2:24 PM CDT Narrative 01/15/2017 2:25 PM CDT UPPER GI LIMITED INDICATION: Post gastrojejunostomy. FINDINGS: She swallowed water-soluble contrast without difficulty. There is a small gastric remnant which readily empties into the gastrojejunostomy. I do not see any extravasation or fixed obstruction. Visualized jejunal loops are unremarkable. Procedure Note Jeromy Fox MD - 01/15/2017 UPPER GI LIMITED INDICATION: Post gastrojejunostomy. FINDINGS: She swallowed water-soluble contrast without difficulty. There is a small gastric remnant which readily empties into the gastrojejunostomy. I do not see any extravasation or fixed obstruction. Visualized jejunal loops are unremarkable. Eduardo Herrera MD FLUOROSCOPY ORDERABL ES * (ABNORMAL) POTASSIUM BLOOD (01/14/2017 11:16 AM CDT) Pathologist [facility] Potassium 3.4(L) 3.5 - 5.1 mmol/L 01/14/2017 11:36 AM CDT [facility] Blood BLOOD SPECIMEN / Unknown Venipuncture / Unknown 01/14/2017 11:16 AM CDT 01/14/2017 11:23 AM CDT Linn Devine DO LAB - CHEMISTRY YOLANDE FRAGA Performing Organization Address City/State/[facility] [[email or web address] Co de Phone Number [facility] [address] [place] [address] * SLEEP STUDY (08/06/2016) Eduardo Herrera MD SLEEP CENTER ORDERAB LES * SLEEP STUDY (06/17/2016) Eduardo Herrera MD SLEEP CENTER ORDERAB LES * IMAGING/RADIOLOGY/XRAY RESULTS ORDER (10/19/2012) Only the most recent of2 resultswithin the time period is included. Anatomical Region Laterality Modality Other Provider Unknown IMAGING * CREATININE BLOOD - POINT OF CARE (IP) (04/24/2011 9:34 AM CDT) Creatinine POCT 0.94 0.7 - 1.2 mg/dL [facility] POCT TESTING QC Verified Yes [facility] POC T TESTING Blood specimen (specimen) BLOOD SPECIMEN / Unknown 04/24/2011 9:34 AM CDT Sriram Davis MD LAB - POINT OF CARE ORDERABLES [place] [address] Care Teams Head Of Physics Relationship Specialty Start Date End Date Henry Ruiz DO PCP - General Internal Medicine 10/12/15
--- OUTSIDE RECORDS SUMMARY | 2024-08-10 11:56 | XMS_ITS | Clinical Summary ---
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 07/15/2024 Other [...] Diabetes mellitus 10/26/2009 Polycystic ovarian syndrome 01/27/2008 Encounters Date Type Department Care Team Description 08/10/2024 9:30 AM DISEASE CONTROL INSPECTOR Office Visit [facility] [address] [place] [address] A [address] [place] [address] Gin Conte NP Status post panniculectomy (Primary Dx) 07/15/2024 11:00 AM DISEASE CONTROL INSPECTOR Office Visit [address] [place] [address] Russell Louie MD Loose skin (Primary Dx); Status post panniculectomy 07/07/[address] [place] [address] Lyndsay Mohan, VU 07/04/[address] [place] [address] Rayna Wan Melissa 06/03/2024 9:15 AM DISEASE CONTROL INSPECTOR Office Visit [address] [place] [address] Status post panniculectomy (Primary Dx) 05/31/2024 9:18 AM DISEASE CONTROL INSPECTOR - 05/31/2024 11:59 PM DISEASE CONTROL INSPECTOR Hospital Encounter [facility] 1 [place] [address] Loose skin; Edema of extremity of unknown cause Discharge Disposition: Discharge to home or self care 05/30/2024 1:10 PM DISEASE CONTROL INSPECTOR - 05/30/2024 11:59 PM DISEASE CONTROL INSPECTOR Hospital Encounter [facility] 1 [place] [address] Loose skin; Edema of extremities Discharge Disposition: Discharge to home or self care 05/30/2024 Orders Only [address] [place] [address] Lyndsay Mohan, RN Loose skin (Primary Dx); Edema of extremity of unknown cause; Edema of extremities 05/25/2024 1:30 PM DISEASE CONTROL INSPECTOR Office Visit [address] [place] [address] Loose skin (Primary Dx) 05/24/2024 Orders Only [facility] [address] [facility] [address] [place] [address] Russell Louie MD 05/20/2024 [facility] Post Discharge Follow up phone call [facility] IMU 1 [place] [address] Clair Hamilton RN 05/19/2024 10:30 AM DISEASE CONTROL INSPECTOR Office Visit [facility] [address] [facility] [address] [place] [address] Loose skin (Primary Dx) 05/12/2024 8:30 AM DISEASE CONTROL INSPECTOR - 05/12/2024 11:50 AM DISEASE CONTROL INSPECTOR Surgery [facility] Operating Room 1 [place] [address] Russell Louie MD [id number] PANNICULECTOMY 05/12/2024 8:26 AM DISEASE CONTROL INSPECTOR Anesthesia Event [facility] Operating Room 1 [place] [address] Charisse Juarez Jr., MD Reynolds, Josue Bautista MD 05/12/2024 7:02 AM DISEASE CONTROL INSPECTOR - 05/17/2024 4:58 PM DISEASE CONTROL INSPECTOR Hospital Encounter [facility] Surgery Care 1 [place] [address] Russell Louie MD Nikolic, Jelena, MD Excess skin Discharge Disposition: Discharge to home or self care 05/12/2024 Orders Only [facility] Operating Room 1 [place] [address] Russell Louie MD from Last 3 Months Surgical History Surgery Date Site/Laterality Comments CEREBRAL ANEURYSM REPAIR 06/29/2021 - 07/29/[address] Peacock KNEE ARTHROSCOPY Left 3 GASTRIC BYPASS LAPAROSCOPY multiple times due to pcos HYSTERECTOMY TONSILLECTOMY HERNIA REPAIR 2 LAPAROSCOPIC GASTROTOMY W/ REPAIR OF ULCER Medical History Medical History Date Comments Cerebral aneurysm w/ sub arachno id hemorrhage Sleep apnea Asthma GERD (gastroesophageal reflux disease) Stroke (HCC) Polycystic ovary syndrome Headache Family History Medical History Relation Name Comments Hypertension Brother Hypertension Mother Relation Name Status Comments Brother Mother Social History Tobacco Use Types Packs/Day Years [...] on file Legal Sex Female 1:45 AM DISEASE CONTROL INSPECTOR Gender Identity Not on file Sexual Orientation Not on file Obstetrics History Last Filed Vital Signs Vital Sign Reading Time Taken Comments Blood Pressure 111/62 05/17/2024 7:35 AM DISEASE CONTROL INSPECTOR Pulse 88 05/17/2024 8:20 AM DISEASE CONTROL INSPECTOR Temperature 36.7 C (98 F) 05/17/2024 7:35 AM DISEASE CONTROL INSPECTOR Respiratory Rate 18 05/17/2024 7:35 AM DISEASE CONTROL INSPECTOR Oxygen Saturation 98% 05/17/2024 7:35 AM DISEASE CONTROL INSPECTOR Inhaled Oxygen Concentration - - Weight 72 kg (158 lb 11.7 oz) 05/17/2024 6:13 AM DISEASE CONTROL INSPECTOR Height 167.6 cm (5' 6 ) 05/17/2024 6:13 AM DISEASE CONTROL INSPECTOR Body Mass Index 25.62 05/17/2024 6:13 AM DISEASE CONTROL INSPECTOR Plan of Treatment Health Maintenance Due Date Last Done Comments Breast Cancer Screening-Mammogram 1979 Hemoglobin A1C 1979 Dilated Eye Exam 1979 Foot Exam 1979 Pneumococcal vaccine <65 (1 of 2 - PCV) 11/27/1985 DTaP/Tdap/Td Vaccine (1 - Tdap) 11/27/1990 Varicella Vaccines (1 of 2 - 13+ 2-dose series) 11/27/1992 Hepatitis B Screening 11/27/1997 Regular Well Visit/Exam 18-64 11/27/1997 Influenza Vaccine (#1) 2024 Albumin Creatinine Ratio, Urine 07/30/2024 07/30/2023 Lipid Panel 07/30/2024 07/30/2023 Depression Screening 03/25/2025 03/25/2024 eGFR 05/17/2025 05/17/2024, 04/29, 05/13/2024, Additional history exists Hepatitis C Screening Completed 05/14/2024 HPV Vaccines Aged Out No longer eligi ble based on patient's age to complete this topic Medical Devices Implanted Type Area Residential Subcontractor Device Identifier Shelf Expiration Date Model / Serial / Lot Teranode Sealant Fibrin Patch [place] Set Frozen Prefilled Syringe Artiss 10ml [id number] - [id number] - [id number] Implanted:Qty: 1 on 05/12/2024 by Russell Louie MD at [facility] N/A: Abdomen Luna GelSight 07/29/2025 [id number] / [id number] / [id number] Procedures Procedure Name Priority Date/Time Associated Diagnosis Comments US VEIN DUPLEX UPPER EXTREMITY BILATERAL COMPLETE Schedule Routine, Read Routine (OP Routine) 05/31/2024 10:26 AM DISEASE CONTROL INSPECTOR Loose skin Edema of extremity of unknown cause US VEIN DUPLEX LOWER EXTREMITY BILATERAL COMPLETE Schedule Routine, Read Routine (OP Routine) 05/30/2024 2:20 PM DISEASE CONTROL INSPECTOR Loose skin Edema of extremities EGFR Routine 05/17/2024 3:23 AM DISEASE CONTROL INSPECTOR DIFFERENTIAL AUTO Routine 05/17/2024 3:2 3 AM DISEASE CONTROL INSPECTOR COMPREHENSIVE METABOLIC PANEL Routine 05/17/2024 3:23 AM DISEASE CONTROL INSPECTOR CBC WITH AUTO DIFFERENTIAL Routine 05/17/2024 3:23 AM DISEASE CONTROL INSPECTOR DIFFERENTIAL AUTO Routine 05/16/2024 2:2 7 AM DISEASE CONTROL INSPECTOR CBC WITH AUTO DIFFERENTIAL Routine 05/16/2024 2:27 AM DISEASE CONTROL INSPECTOR HEMOGLOBIN AND HEMATOCRIT Routine 05/15/2024 4:38 PM DISEASE CONTROL INSPECTOR TRANSFUSE RED BLOOD CELLS Timed 05/15/2024 9:44 AM DISEASE CONTROL INSPECTOR PREPARE RBC Timed 05/15/2024 6:52 AM DISEASE CONTROL INSPECTOR DIFFERENTIAL AUTO Routine 05/15/2024 3:0 7 AM DISEASE CONTROL INSPECTOR CBC WITH AUTO DIFFERENTIAL Routine 05/15/2024 3:07 AM DISEASE CONTROL INSPECTOR HEMOGLOBIN AND HEMATOCRIT Routine 05/14/2024 1:34 PM DISEASE CONTROL INSPECTOR HEPATITIS PANEL, ACUTE Timed 05/14/2024 1:34 PM DISEASE CONTROL INSPECTOR TRANSFUSE RED BLOOD CELLS Timed 05/14/2024 9:18 AM DISEASE CONTROL INSPECTOR PREPARE RBC Timed 05/14/2024 8:22 AM DISEASE CONTROL INSPECTOR CROSSMATCH Timed 05/14/2024 6:01 AM DISEASE CONTROL INSPECTOR ANTIBODY SCREEN Timed 05/14/2024 6:01 AM DISEASE CONTROL INSPECTOR ABO/RH Timed 05/14/2024 6:01 AM DISEASE CONTROL INSPECTOR TYPE AND SCREEN Timed 05/14/2024 6:01 AM DISEASE CONTROL INSPECTOR EGFR Routine 05/14/2024 2:46 AM DISEASE CONTROL INSPECTOR DIFFERENTIAL AUTO Routine 05/14/2024 2:4 6 AM DISEASE CONTROL INSPECTOR COMPREHENSIVE METABOLIC PANEL Routine 05/14/2024 2:46 AM DISEASE CONTROL INSPECTOR CBC WITH AUTO DIFFERENTIAL Routine 05/14/2024 2:46 AM DISEASE CONTROL INSPECTOR FOLATE Routine 05/14/2024 2:46 AM DISEASE CONTROL INSPECTOR VITAMIN B12 Routine 05/14/2024 2:46 AM DISEASE CONTROL INSPECTOR IRON PROFILE W/ IBC Routine 05/14/2024 2 :46 AM DISEASE CONTROL INSPECTOR B ABO / RH CONFIRMATION TESTING STAT 05/14/2024 2:41 AM DISEASE CONTROL INSPECTOR CALCIUM,IONIZED, WHOLE BLOOD Add-On 05/13/2024 6:59 PM DISEASE CONTROL INSPECTOR HEPATIC FUNCTION PANEL Routine 05/13/2024 1:31 PM DISEASE CONTROL INSPECTOR MANUAL DIFFERENTIAL Routine 05/13/2024 1 :31 PM DISEASE CONTROL INSPECTOR EGFR Routine 05/13/2024 1:31 PM DISEASE CONTROL INSPECTOR MAGNESIUM Add-On 05/13/2024 1:31 PM DISEASE CONTROL INSPECTOR COMPREHENSIVE METABOLIC PANEL Routine 05/13/2024 1:31 PM DISEASE CONTROL INSPECTOR CBC WITH AUTO DIFFERENTIAL Routine 05/13/2024 1:31 PM DISEASE CONTROL INSPECTOR SURGICAL PATHOLOGY Routine 05/12/2024 2: 30 PM DISEASE CONTROL INSPECTOR DE AN ELECTIVE ENDOTRACHEAL AIRWAY Routine 05/12/2024 8:45 AM DISEASE CONTROL INSPECTOR PANNICULECTOMY 05/12/2024 8:26 AM DISEASE CONTROL INSPECTOR Excess skin Special Needs GENERAL, TAP, 1% LIDO WITH EPI, NILESH, 19 CHINESE CURTIS DRAIN x2, BINDER ANESTHESIA PERIPHERAL BLOCK Routine 05/12/2024 8:15 AM DISEASE CONTROL INSPECTOR LIPID PANEL Routine 07/30/2023 8:51 AM DISEASE CONTROL INSPECTOR ALBUMIN CREATININE RATIO, URINE Routine 07/30/2023 8:51 AM DISEASE CONTROL INSPECTOR from Last 3 Months or Most Recently Relevant to Health Maintenance Results * US Vein Duplex Upper Extremity Bilateral Complete (05/31/2024 10:26 AM DISEASE CONTROL INSPECTOR) Anatomical Region Laterality Modality Vascular Bilateral Ultrasound 05/31/2024 10:3 4 AM DISEASE CONTROL INSPECTOR Narrative 05/31/2024 10:44 AM DISEASE CONTROL INSPECTOR EXAM DESCRIPTION: US VEIN DUPLEX UPPER EXTREMITY [...] Milo Blandon M.D. AG: CANDELARIO Report ID: [id number] Reading Location: [id number] Procedure Note Milo Blandon MD - 05/31/2024 [...] Milo Blandon M.D. AG: CANDELARIO Report ID: [id number] Reading Location: [id number] us Russell Louie MD IMG US PROCEDURES Fi nal Result * US Vein Duplex Lower Extremity Bilateral Complete (05/30/2024 2:20 PM DISEASE CONTROL INSPECTOR) Anatomical Region Laterality Modality Vascular Bilateral Ultrasound 05/31/2024 10:2 7 AM DISEASE CONTROL INSPECTOR Narrative 05/31/2024 10:34 AM DISEASE CONTROL INSPECTOR EXAM DESCRIPTION: US VEIN DUPLEX LOWER EXTREMITY [...] Milo Blandon M.D. AG: CANDELARIO Report ID: [id number] Reading Location: [id number] Procedure Note Milo Blandon MD - 05/31/2024 [...] Milo Blandon M.D. AG: CANDELARIO Report ID: [id number] Reading Location: [id number] us Russell Louie MD IM US PROCEDURES Fi nal Result * eGFR (05/17/2024 3:23 AM DISEASE CONTROL INSPECTOR) eGFR >90 >=60 mL/min/1. 73 m2 Comment: [...] last reviewed 2021. Blood 05/17/2024 3:23 AM DISEASE CONTROL INSPECTOR 05/17/2024 4:05 AM DISEASE CONTROL INSPECTOR us Lolita Colon MD LAB BLOOD ORDERABLES Final Res ult [facility] ([place]) 1 [facility] Department of Laboratories [place], [place] [id number] * Differential, auto (05/17/2024 3:23 AM DISEASE CONTROL INSPECTOR) Neutrophil abs 2.7 1.5 - 6.5 K/cumm [...] Eosinophil pct 4.0 % [facility] ([place]) Comment: Interpretive Data Percent cell count reference [...] revised on 2017. Blood 05/17/2024 3:23 AM DISEASE CONTROL INSPECTOR 05/17/2024 4:05 AM DISEASE CONTROL INSPECTOR us Lolita Colon MD LAB BLOOD ORDERABLES Final Res ult [facility] ([place]) 1 [facility] Department [place] [address] * (ABNORMAL) CBC with auto differential (05/17/2024 3:23 AM DISEASE CONTROL INSPECTOR) WBC 5.8 3.8 - 9.9 K/cumm Hgb 7.9(L) 11.9 - 15.5 g/dL [facility] ([place]) Hct 24.9(L) 35.6 - 45.5 % [facility] ([place]) Plt 180 150 - 400 [...] [facility] ([place]) Blood 05/17/2024 3:23 AM DISEASE CONTROL INSPECTOR 05/17/2024 4:05 AM DISEASE CONTROL INSPECTOR us Lolita Colon MD LAB BLOOD ORDERABLES Final Res ult [facility] 1 [facility] Department of Laboratories [place] [id number] * (ABNORMAL) Comprehensive metabolic panel (05/17/2024 3:23 AM DISEASE CONTROL INSPECTOR) Sodium 139 135 - 145 mmol/L Potassium, [...] [facility] ([place]) Blood 05/17/2024 3:23 AM DISEASE CONTROL INSPECTOR 05/17/2024 4:05 AM DISEASE CONTROL INSPECTOR us Lolita Colon MD LAB BLOOD ORDERABLES Final Res ult [facility] ([place]) 1 [facility] Department [place] [address] * Differential, auto (05/16/2024 2:27 AM DISEASE CONTROL INSPECTOR) Neutrophil abs 2.8 1.5 - 6.5 K/cumm [...] revised on 2017. Basophil pct 0.6 % [facility] ([place]) Comment: Interpretive Data Percent cell count reference ranges are not reported, since discordance with absolute values may lead to misinterpretation of CBC data. Current Interpretive Data was last revised on 2017. Blood 05/16/2024 2:27 AM DISEASE CONTROL INSPECTOR 05/16/2024 3:34 AM DISEASE CONTROL INSPECTOR us Lolita Colon MD LAB BLOOD ORDERABLES Final Res ult [facility] ([place]) 1 [facility] Department [place] [address] * (ABNORMAL) CBC with auto differential (05/16/2024 2:27 AM DISEASE CONTROL INSPECTOR) WBC 6.3 3.8 - 9.9 K/cumm Hgb 8.0(L) 11.9 - 15.5 g/dL [facility] ([place]) Hct 24.8(L) 35.6 - 45.5 [...] RDW CV 15.9(H) 11.1 - 14.9 % [facility] RDW SD 54.2(H) 35.7 - 48.1 fL [facility] ([place] NRBC abs 0.00 0.00 - 0.01 K/cumm [facility] ([place]) Blood 05/16/2024 2:27 AM DISEASE CONTROL INSPECTOR 05/16/2024 3:34 AM DISEASE CONTROL INSPECTOR Lolita Colon MD LAB BLOOD ORDERABLES Final Res ult Performing Organization Address City/[facility]/ZIP Co de Phone Number [facility] ([place]) 1 [facility] [employer] [address] * (ABNORMAL) Hemoglobin and hematocrit (05/15/2024 4:38 PM DISEASE CONTROL INSPECTOR) Hgb 8.7(L) 11.9 - 15.5 g/dL Hct 27.4(L) 35.6 - 45.5 % [facility] ([place]) Blood 05/15/2024 4:38 PM DISEASE CONTROL INSPECTOR 05/15/2024 5:01 PM DISEASE CONTROL INSPECTOR Lolita Colon MD LAB BLOOD ORDERABLES Final Res ult [facility] ([place]) 1 [facility] [email or web address] [address] * Transfuse RBC (05/15/2024 1:44 PM DISEASE CONTROL INSPECTOR) Blood Alexandrea Turner MD BLOOD TRANSFUSION ORDERABLES Final Result [facility] ([place]) 1 [facility] [place] [address] * Prepare RBC: 1 Units (05/15/2024 6:52 AM DISEASE CONTROL INSPECTOR) Units requested 1 Units requested Ready [facility] ([place]) Unit Number [id number] Product code [id number] [facility] ([place]) Blood Expiration Date [facility] ([place]) Product Blood Type (for scanning) 1700 [facility] ([place]) Product Blood Type BNEG [facility] ([place]) Dispense Status DISPENSED [facility] ([place]) Blood 05/15/2024 6:52 AM DISEASE CONTROL INSPECTOR 05/15/2024 6:52 AM DISEASE CONTROL INSPECTOR Alexandrea Turner MD BLOOD BANK PRODUCT ORDERABLES Final Result [facility] ([place]) 1 [facility] [place] [address] * Differential, auto (05/15/2024 3:07 AM DISEASE CONTROL INSPECTOR) Neutrophil abs 3.8 1.5 - 6.5 K/cumm [...] revised on 2017. Blood 05/15/2024 3:07 AM DISEASE CONTROL INSPECTOR 05/15/2024 4:12 AM DISEASE CONTROL INSPECTOR us Lolita Colon MD LAB BLOOD ORDERABLES Final Res ult [facility] ([place]) 1 [facility] Department [place] [address] * (ABNORMAL) CBC with auto differential (05/15/2024 3:07 AM DISEASE CONTROL INSPECTOR) WBC 7.4 3.8 - 9.9 K/cumm Hgb 6.5(L) 11.9 - 15.5 g/dL [facility] ([place]) Hct 21.2(L) 35.6 - 45.5 % [facility] ([place]) Plt 133(L) 150 - 400 K/cumm [facility] ([place]) MPV 13.6(H) 9.1 - 12.3 fL [facility] ([place]) RBC 2.18(L) 3.90 - 5.20 M/cumm [facility] ([place]) MCV 97.2(H) 81.3 - 96.4 fL [facility] ([place]) MCH 29.8 27.1 - 33.3 pg [facility] ([place]) MCHC 30.7(L) 32.3 - 35.7 g/dL [facility] ([place]) RDW CV 15.7(H) 11.1 - 14.9 % [facility] RDW SD 56.1(H) 35.7 - 48.1 fL [facility] ([place]) NRBC abs 0.00 0.00 - 0.01 K/cumm [facility] ([place]) Blood 05/15/2024 3:07 AM DISEASE CONTROL INSPECTOR 05/15/2024 4:12 AM DISEASE CONTROL INSPECTOR Lolita Colon MD LAB BLOOD ORDERABLES Final Res ult [facility] ([place]) 1 [facility] [place] [employer] [address] * (ABNORMAL) Hemoglobin and hematocrit (05/14/2024 1:34 PM DISEASE CONTROL INSPECTOR) Hgb 6.6(L) 11.9 - 15.5 g/dL Hct 21.4(L) 35.6 - 45.5 % [facility] ([place]) Blood 05/14/2024 1:34 PM DISEASE CONTROL INSPECTOR 05/14/2024 1:51 PM DISEASE CONTROL INSPECTOR Lolita Colon MD LAB BLOOD ORDERABLES Final Res ult [facility] ([place]) 1 [facility] [place] [address] * Hepatitis panel, acute Blood (05/14/2024 1:34 PM DISEASE CONTROL INSPECTOR) Hep A IgM Nonreactive Nonreactive Comment: Interpretive Data: If Hep A IgM Ab is reported as Equivocal, a new sample should be drawn in two weeks for testing. Current interpretive data was last revised on 19. Testing performed by: [facility], [address] [place] [address]., [id number] Hep B core IgM Nonreactive Nonreactive [facility] ([place]) Comment: Interpretive Data If HepB Core IgM Ab is reported as Equivocal, a new sample should be drawn in two weeks for testing. Current interpretive data was last revised on 19. Testing performed by: [facility], [address] [place] [address]., [id number] Hep C Ab Nonreactive Nonreactive [facility] [...] last revised on 2019. Testing performed by: [facility], [address] [place] [address]., [id number] HepBsAg Nonreactive Nonreactive [facility] ([place]) Comment:Testing performed by : [address] [address] Blood 05/14/2024 1:34 PM DISEASE CONTROL INSPECTOR 05/15/2024 9:46 AM DISEASE CONTROL INSPECTOR us Lolita Colon MD LAB MICROBIOLOGY - GENERAL ORD ERABLES Final Result [facility] ([place]) 1 [facility] Department [place] [address] * Transfuse RBC (05/14/2024 12:45 PM DISEASE CONTROL INSPECTOR) Blood us Alexandrea Turner MD BLOOD TRANSFUSION ORDERABLES Final Result [facility] ([place]) 1 [facility] [place] [address] * Prepare RBC: 1 Units (05/14/2024 8:22 AM DISEASE CONTROL INSPECTOR) Units requested 1 Units requested Ready [facility] ([place]) Unit Number [id number] Product code [id number] [facility] ([place]) Blood Expiration Date [facility] ([place]) Product Blood Type (for scanning) 7300 [facility] ([place]) Product Blood Type BPOS [facility] ([place]) Dispense Status DISPENSED [facility] ([place]) Blood 05/14/2024 8:22 AM DISEASE CONTROL INSPECTOR 05/14/2024 8:21 AM DISEASE CONTROL INSPECTOR us Alexandrea Turner MD BLOOD BANK PRODUCT ORDERABLES Final Result Performing Organization Address City/[facility]/ZIP Co de Phone Number [facility] ([place]) 1 [facility] [place] [address] * ABO/Rh (05/14/2024 6:01 AM DISEASE CONTROL INSPECTOR) ABO/Rh B Positive Blood 05/14/2024 6:01 AM DISEASE CONTROL INSPECTOR 05/14/2024 6:10 AM DISEASE CONTROL INSPECTOR Narrative [facility] ([place]) - 05/14/2024 7:53 AM DISEASE CONTROL INSPECTOR Has the patient had Daratumumab or Isatuximab in the past 6 months?->Unknown us Alexandrea Turner MD LAB BLOOD BANK TEST ORDERABLE S Final Result [facility] ([place]) 1 [facility] [place] [address] * Crossmatch (05/14/2024 6:01 AM DISEASE CONTROL INSPECTOR) Crossmatch Compatible [facility] ([place]) Unit number for crossmatch [id number] [facility] ([place]) Crossmatch Compatible [facility] ([place]) Unit number for crossmatch [id number] [facility] ([place]) Blood 05/14/2024 6:01 AM DISEASE CONTROL INSPECTOR 05/14/2024 6:10 AM DISEASE CONTROL INSPECTOR Lolita Colon MD LAB BLOOD BANK TEST ORDERABLES Edited Result - Final [facility] ([place]) 1 [facility] [place] [address] * Antibody screen (05/14/2024 6:01 AM DISEASE CONTROL INSPECTOR) Lindsey, indirect, Gel Interpretation Negative ABSC Blood 05/14/2024 6:01 AM DISEASE CONTROL INSPECTOR 05/14/2024 6:10 AM DISEASE CONTROL INSPECTOR Narrative [facility] ([place]) - 05/14/2024 8:19 AM DISEASE CONTROL INSPECTOR Has the patient had Daratumumab or Isatuximab in the past 6 months?->Unknown Alexandrea Turner MD LAB BLOOD BANK TEST ORDERABLE S Final Result Performing Organization Address City/[facility]/ZIP Co de Phone Number [facility] ([place]) 1 [place] [address] * eGFR (05/14/2024 2:46 AM DISEASE CONTROL INSPECTOR) eGFR >90 >=60 mL/min/1. 73 m2 Comment: [...] last reviewed 2021. Blood 05/14/2024 2:46 AM DISEASE CONTROL INSPECTOR 05/14/2024 3:21 AM DISEASE CONTROL INSPECTOR us Lolita Colon MD LAB BLOOD ORDERABLES Final Res ult [facility] ([place]) 1 [facility] Department [place] [address] * Differential, auto (05/14/2024 2:46 AM DISEASE CONTROL INSPECTOR) Neutrophil abs 3.4 1.5 - 6.5 K/cumm Imm gran abs 0.0 0.0 - 0.1 K/cumm [facility] ([place]) Lymphocyte abs 3.1 0.8 - 3.3 K/cumm [facility] ([place]) Monocyte abs 0.8 0.2 - 0.8 K/cumm [facility] ([place]) Eosinophil abs 0.1 0.0 - 0.5 K/cumm [...] revised on 2017. Blood 05/14/2024 2:46 AM DISEASE CONTROL INSPECTOR 05/14/2024 3:21 AM DISEASE CONTROL INSPECTOR Lolita Colon MD LAB BLOOD ORDERABLES Final Res ult Performing Organization Address [facility]/ZIP Co de Phone Number [facility] ([place]) 1 [facility] [email or web address] [address] * (ABNORMAL) Iron profile w/ IBC (05/14/2024 2:46 AM DISEASE CONTROL INSPECTOR) Iron 19(L) 35 - 145 mcg/dL TIBC 157(L) 250 - 400 mcg/dL [facility] ([place]) Transferrin saturation 12(L) 20 - 50 % [facility] ([place]) Blood 05/14/2024 2:46 AM DISEASE CONTROL INSPECTOR 05/14/2024 3:21 AM DISEASE CONTROL INSPECTOR Lolita Colon MD LAB BLOOD ORDERABLES Final Res ult [facility] ([place]) 1 [facility] [place] [address] * (ABNORMAL) CBC with auto differential (05/14/2024 2:46 AM DISEASE CONTROL INSPECTOR) WBC 7.5 3.8 - 9.9 K/cumm Hgb 6.1(C) 11.9 - 15.5 g/dL [facility] ([place]) Comment:Critical result call ed to and read back by KOSTAS AUGUSTE on 05 14 2024 at 0337 to John Demarcorhonda. Hct 19.8(L) 35.6 - 45.5 % [facility] [...] [facility] ([place]) Blood 05/14/2024 2:46 AM DISEASE CONTROL INSPECTOR 05/14/2024 3:21 AM DISEASE CONTROL INSPECTOR Lolita Colon MD LAB BLOOD ORDERABLES Final Res ult [facility] ([place]) 1 [facility] [place] [address] * Folate (05/14/2024 2:46 AM DISEASE CONTROL INSPECTOR) Folic acid >20.0 >=5.0 ng/mL Comment:Slightly Hemolyzed S pecimen. Results may be affected. Blood 05/14/2024 2:46 AM DISEASE CONTROL INSPECTOR 05/14/2024 3:21 AM DISEASE CONTROL INSPECTOR Lolita Colon MD LAB BLOOD ORDERABLES Final Res ult [facility] ([place]) 1 [facility] [place] [address] * Vitamin B12 (05/14/2024 2:46 AM DISEASE CONTROL INSPECTOR) Vitamin B12 720 230 - 1,250 pg/mL Blood 05/14/2024 2:46 AM DISEASE CONTROL INSPECTOR 05/14/2024 3:21 AM DISEASE CONTROL INSPECTOR us Lolita Colon MD LAB BLOOD ORDERABLES Final Res ult [facility] ([place]) 1 [facility] Department [place] [address] * (ABNORMAL) Comprehensive metabolic panel (05/14/2024 2:46 AM DISEASE CONTROL INSPECTOR) Sodium 142 135 - 145 mmol/L Potassium, pl 4.4 3.3 - 4.9 mmol/L [facility] ([place]) Chloride 109 97 - 110 mmol/L [facility] ([place]) CO2 28 22 - 32 mmol/L [facility] ([place]) Anion gap 5 2 - 15 mmol/L [facility] ([place]) BUN 16 6 - 25 mg/dL [facility] ([place]) Creatinine 0.58(L) 0.60 - 1.10 mg/dL [facility] ([place]) Glucose 93 70 - 199 mg/dL [facility] ([place]) [...] [facility] ([place]) Blood 05/14/2024 2:46 AM DISEASE CONTROL INSPECTOR 05/14/2024 3:21 AM DISEASE CONTROL INSPECTOR Lolita Colon MD LAB BLOOD ORDERABLES Final Res ult [facility] ([place]) [address] [facility] [place] [place] [address] * ABO / Rh Confirmation Testing (05/14/2024 2:41 AM DISEASE CONTROL INSPECTOR) ABO/Rh Confirmation B Positive [facility] Blood 05/14/2024 2:41 AM DISEASE CONTROL INSPECTOR 05/14/2024 7:53 AM DISEASE CONTROL INSPECTOR Alexandrea Turner MD LAB BLOOD ORDERABLES Final Re sult Performing Organization Address City/[facility]/ZIP Co de Phone Number ERICK [facility] ([place]) [address] [facility] [place] [place] [address] AMH * (ABNORMAL) Calcium, ionized, whole blood (05/13/2024 6:59 PM DISEASE CONTROL INSPECTOR) Ca, ionized, bld 4.19(L) 4.50 - 5.10 mg/dL Blood 05/13/2024 6:59 PM DISEASE CONTROL INSPECTOR 05/13/2024 7:01 PM DISEASE CONTROL INSPECTOR Lolita Colon MD LAB BLOOD ORDERABLES Final Res ult [facility] ([place]) 1 [facility] [place] [address] * eGFR (05/13/2024 1:31 PM DISEASE CONTROL INSPECTOR) eGFR >90 >=60 mL/min/1. 73 m2 Comment: [...] last reviewed 2021. Blood 05/13/2024 1:31 PM DISEASE CONTROL INSPECTOR 05/13/2024 1:36 PM DISEASE CONTROL INSPECTOR us Lolita Colon MD LAB BLOOD ORDERABLES Final Res ult [facility] ([place]) 1 [facility] Department of Laboratories [place], [place] [id number] * (ABNORMAL) CBC with auto differential (05/13/2024 1:31 PM DISEASE CONTROL INSPECTOR) WBC 9.1 3.8 - 9.9 K/cumm Hgb [...] [facility] ([place]) Blood 05/13/2024 1:31 PM DISEASE CONTROL INSPECTOR 05/13/2024 1:36 PM DISEASE CONTROL INSPECTOR us Lolita Colon MD LAB BLOOD ORDERABLES Final Res ult [facility] ([place]) 1 [facility] Department [place] [address] * (ABNORMAL) Manual Differential (05/13/2024 1:31 PM DISEASE CONTROL INSPECTOR) Differential Manual Cells Counted 100 [facility] [...] revised on 2017. Eosinophil pct 2.0 % [facility] ([place]) Comment: Interpretive Data Percent cell count reference ranges are not reported, since discordance with absolute values may lead to misinterpretation of CBC data. Current Interpretive Data was last revised on 2017. RBC morphology Consistent with RBC Indicies [facility] ([place]) Platelet estimate Adequate CE [facility] ([place]) Blood 05/13/2024 1:31 PM DISEASE CONTROL INSPECTOR 05/13/2024 1:36 PM DISEASE CONTROL INSPECTOR Lolita Colon MD LAB BLOOD ORDERABLES Final Res ult Performing Organization Address City/[facility]/ZIP Co de Phone Number [facility] ([place]) 1 [facility] [place] [address] * Magnesium (05/13/2024 1:31 PM DISEASE CONTROL INSPECTOR) [facility] Magnesium 2.2 1.4 - 2.5 mg/dL Blood 05/13/2024 1:31 PM DISEASE CONTROL INSPECTOR 05/13/2024 1:36 PM DISEASE CONTROL INSPECTOR Lolita Colon MD LAB BLOOD ORDERABLES Final Res ult Performing Organization Address [facility] Co de Phone Number [facility] ([place]) 1 [facility] [place] [address] * (ABNORMAL) Hepatic function panel (05/13/2024 1:31 PM DISEASE CONTROL INSPECTOR) Bilirubin, total 0.3 0.1 - 1.2 mg/dL Bilirubin, direct 0.1 0.1 - 0.3 mg/dL [facility] ([place]) Protein, pl 5.2(L) 6.5 - 8.5 g/dL [facility] ([place]) Albumin 3.4(L) 3.5 - 5.0 g/dL [facility] ([place]) Alk phos 125 40 - 130 Units/L [facility] ([place] ALT 165(H) 7 - 45 Units/L [facility] ([place]) AST 117(H) 10 - 45 Units/L [facility] ([place]) Blood 05/13/2024 1:31 PM DISEASE CONTROL INSPECTOR 05/13/2024 6:09 PM DISEASE CONTROL INSPECTOR us Lolita Colon MD LAB BLOOD ORDERABLES Final Res ult [facility] ([place]) 1 [facility] Department [place] [address] * (ABNORMAL) Comprehensive metabolic panel (05/13/2024 1:31 PM DISEASE CONTROL INSPECTOR) Sodium 138 135 - 145 mmol/L Potassium, [...] classification and Diagnosis of Diabetes Diabetes Care 202; 46: S19-S40. Current interpretive data was last [...] [facility] ([place]) Blood 05/13/2024 1:31 PM DISEASE CONTROL INSPECTOR 05/13/2024 1:36 PM DISEASE CONTROL INSPECTOR us Lolita Colon MD LAB BLOOD ORDERABLES Final Res ult [facility] ([place]) 1 [facility] [place] [address] * Surgical pathology (05/12/2024 2:30 PM DISEASE CONTROL INSPECTOR) Skin, plastic repair 05/12/2024 2:30 PM DISEASE CONTROL INSPECTOR 05/12/2024 2:30 PM DISEASE CONTROL INSPECTOR Narrative 05/16/2024 4:09 PM DISEASE CONTROL INSPECTOR EPIC results best viewed via link to PDF [facility] Department of Pathology [address] [place] [address] Note to Patients: This report may contain [...] Final Report Patient Name: DORY BARNES Address: [facility] [address] , [place] [address] Gender: F : 1980 (Age: 43) Service: Surgery Location: [facility] Hospital #: [id number] Patient Type: AMH Taken: 05/12/2024 Received: 05/12/2024 Accessioned: 05/12/2024 Reported: 05/16/2024 Physician(s):Russell Sage M.D. Diagnosis: Pannus, [id number] panniculectomy: - Benign skin and fibroadipose tissue. Milo Grullon MD Report Electronically Reviewed and Signed Out By Milo Grullon MD 05/16/2024 16:09:01 Specimen(s) Received: A: Panniculus, abdomen Microscopic Description: Microscopic examination shows benign-appearing skin and fibroadipose tissue. There is no evidence of malignancy. Clinical History: Excess skin. [id number] panniculectomy, possible umbilical sacrificing. Gross Description: Received in a single formalin filled container labeled with DORY BARNES and lin . It is a piece of pink-loaiza skin and subcutis measuring 45 x 30 x 15 cm and weighing 2525 g. The umbilicus is absent. The surrounding skin is wrinkled but without lesions. Sectioning shows fibrofatty cut surfaces without lesions. Represented in 3 cassettes. Federica Zamudio R.N. PLaurel/Forrest Noble M.D. REPORT IMAGES AND SCANNED DOCUMENTS, IF INCLUDED, ONLY VIEWABLE IN PDF VERSION OF REPORT The performance characteristics of some immunohistochemical stains, fluorescence in-situ hybridization tests and immunophenotyping by flow cytometry cited in this report (if any) were determined by the Surgical Pathology Department at [facility] as part of an ongoing quality control technician program and in compliance with federally mandated [...] characteristics determined by the Surgical Pathology Department [facility]. It has not been cleared or approved by the U. S. Food and Drug Administration. Note for decalcified specimens: This assay has not been validated on decalcified tissues. Results should be interpreted with caution given the possibility of false negativity on decalcified specimens us Russell Louie MD LAB PATHOLOGY ORDERA BLES Final Result * DE AN ELECTIVE ENDOTRACHEAL AIRWAY (05/12/2024 8:45 AM DISEASE CONTROL INSPECTOR) Narrative Gabriel Guillen CRNA - 05/12/2024 8:45 AM DISEASE CONTROL INSPECTOR Gabriel Guillen CRNA 05/12/2024 8:46 AM Airway Patient location: OR Urgency: elective Indications for airway management: anesthesia Difficult airway: no Staff: Placed by: WIRE WRAPPER MACHINE OPERATOR: Gabriel Guillen CRNA Emergent airway documentation: Risks [...] oral Blade type: Mildred Video blade type: Life With Linda Blade size: 3 Cormack-Lehane (direct): grade I - full view of glottis Cormack-Lehane (video): grade I - full view of glottis Cuff inflated with: air ETT to gums: 19 cm Placement verified by: CO2 detection Airway secured with: silk tape Number of attempts: 1 Planned trial extubation: yes Result [facility] Charisse Juarez Jr., MD ANESTHESIA ORDER BAKARI Final Result * Peripheral Block (05/12/2024 8:15 AM DISEASE CONTROL INSPECTOR) Narrative Efrain James MD - 05/12/2024 8:15 AM DISEASE CONTROL INSPECTOR Efrain James MD 05/12/2024 8:17 AM Peripheral [...] Albumin Creatinine Ratio, Urine (07/30/2023 8:51 AM DISEASE CONTROL INSPECTOR) Albumin Ur <12.0 mg/L [facility] ([place]) Comment: Interpretive Data No reference range established. Current interpretive data was last revised 2018. Testing performed by: [address] [address] Creatinine Ur 75.1 mg/dL [facility] ([place]) Comment: Interpretive Data No reference range established. Current interpretive data was last revised 2018. Testing performed by: [address] [address] Albumin Creatinine Ratio, Ur <16 1 - 29 mg/g [facility] ([place]) Comment:Testing performed by : [address] [address] Urine 07/30/2023 8:51 AM DISEASE CONTROL INSPECTOR 07/30/2023 10:55 AM DISEASE CONTROL INSPECTOR Rocio Wu NP LAB URINE ORDERABLES Final R esult [facility] ([place]) 1 [facility] [place] [address] * Lipid panel (07/30/2023 8:51 AM DISEASE CONTROL INSPECTOR) Cholesterol 91 30 - 199 mg/dL [facility] ([place]) Comment: Interpretive Data Ages < or [...] Pediatrics 2011;128:S213 2. NCEP Expert Panel. Circulation 2003;110:227 Current Interpretive Data was last revised on 2018. HDL 45 >=40 mg/dL ER[facility] ([place]) Comment: Interpretive Data Ages < or [...] 2018. LDL, calculated 38 <=129 mg/dL [facility] ([place]) Comment: Interpretive Data Ages < or [...] 2018. Non-HDL Cholesterol 46 mg/dL [facility] ([place]) Comment: Interpretive Data Ages < or = [...] on 2018. Chol/HDL ratio 2 [place] [facility] ([place]) Blood 07/30/2023 8:51 AM DISEASE CONTROL INSPECTOR 07/30/2023 10:12 AM DISEASE CONTROL INSPECTOR Rocio Wu NP LAB BLOOD ORDERABLES Final R esult [facility] ([place]) 1 [facility] [place] [address] from Last 3 Months or Most Recently Relevant to Health Maintenance Insurance MEDICARE SOLUTIONS IDPA MEDICARE SOLUTIONS IDPA Care Teams Engineering Recruiter Relationship Specialty Start Date End Date Henry Ruiz DO PCP - General Internal Medicine 12/09/21 Nicholas Peacock MD [address] [facility] [address] [place] [address] Surgeon Neurosurgery 02/19/22 Lolita Colon MD [address] [place] [address] [place] [address] Consulting Physician Internal Medicine 05/16/24
--- OUTSIDE RECORDS SUMMARY | 2024-08-10 11:57 | XMS_ITS | Data Portability ---
[facility] Address [address] [place] [address] Assessment No assessment recorded. Plan of Treatment Reminders Order Date Submit Date Provider Last Modified By Organization Details Last Modified Time Details Appointments None recorded. Lab bacterial vaginosis + vaginitis panel, vaginal 2018 019 [facility], [address], [address], [place], [address], 9 14:13:24 HSV (1+2) DNA, qual, PCR, unspecifi ed specimen 2018 019 [facility], [address] [facility] [address], [place], [address], 9 14:13:25 urinalysi s, dipstick 2018 019 chandler In-Office Order, Internal Use Only DO Not Attach Compendium DO Not Attach Compendium, Do Not Delete/merge, [id number] 9 10:35:16 hepatitis panel (A+B+C), acute, serum 2018 019 [facility], [address], [place], [address], 9 11:35:34 hepatitis B surface Ab, qualitati ve, serum 2018 019 [facility], [address], [place], [address], 9 11:35:35 HIV 1+2 AB + HIV 1 p24 Ag, qualitati ve immunoass ay, serum 2018 019 [facility], [address] Story, [address], [address], 9 11:35:37 treponema pallidum screen, serum, reflex confirmat ion 2018 [facility], [address] [place] [address], [address], [place], [address], 9 11:35:36 HSV 2 IgG Ab, QN, IA, serum 2018 [facility], [address] [place] [address], [address], [place], [address], 9 11:35:37 Referral None recorded. Procedures None recorded. Surgeries None recorded. Imaging US, breast, bilateral , w/ axilla 2018 019 [facility]), [address] [place], [address], 9 09:50:37 MAMMO, diagnosti c, digital, bilateral 2018 019 [facility] ([facility]), [address] [place], [address], 9 17:04:55 US, pelvis, transabdo luis + transvagi nal 2018 019 [facility] ([facility]), [address] [place], [address], 9 12:30:59 Medication Orders Diflucan 150 mg tablet 2018 019 INTERFACE [id number], [address], [place], [id number], 9 10:36:10 Flagyl 500 mg tablet 2018 019 INTERFACE [facility] #[id number], [address], [place], [id number], 9 10:01:10 fluconazo le 150 mg tablet 2018 019 [facility] #[id number], [address], [place], [id number], 9 17:49:55 Bicillin L-A 2,400,000 unit/4 mL intramusc ular syringe 2018 019 [facility] #[id number], [address], [place], [id number], 9 17:49:55 Bicillin L-A 2,400,000 unit/4 mL intramusc ular syringe 2018 019 uyy[facility] #[id number], [address], [place], [id number], 9 09:44:25 Patient TargetsNo targets recorded. Patient Instructions Encounter Date Encounter Id Patient Instructions Last Modified By Organization Details Last Modified Time 07/20/2018 [id number] bladder training: care instructions svuyyuru Not available 07/20/2018 11:49:54 kegel exercises: care instructions svuyyuru Not available 07/20/2018 11:49:54 Stress Incontinence: Care Instructions svuyyuru Not available 07/20/2018 11:49:54 Well Visit, Ages 18 to 65: Care Instructions svuyyuru Not available 07/20/2018 10:25:13 breast lumps: care instructions svuyyuru Not available 07/20/2018 11:49:55 bacterial vaginosis: care instructions svuyyuru Not available 07/20/2018 11:49:54 When You Want to Lose Weight: Care Instructions svuyyuru Not available 07/20/2018 11:49:54 08/02/2018 [id number] syphilis: care instructions mwasserman Not available 08/02/2018 17:49:55 08/09/2018 [id number] syphilis: care instructions svuyyuru Not available 08/10/2018 09:44:25 08/16/2018 [id number] syphilis: care instructions svuyyuru Not available 08/16/2018 15:32:53 Reason for Referral None Reported. Results Created Date Observation Date Name Description Value Unit Range Abnormal Flag Note LastModifiedBy Organization Detail LastModifiedTime 07/20/1907/20/2018 urina lysis , dipst ick Leukocytes Negati ve Not Available In-Office Order Internal Use Only DO Not Attach Compendium DO Not Attach Compendium, Do Not Delete/merge, 07/20/2018 10:34:17 07/20/1907/20/2018 urina lysis , dipst ick Nitrite negati ve Not Available In-Office Order Internal Use Only DO Not Attach Compendium DO Not Attach Compendium, Do Not Delete/merge, 07/20/2018 10:34:17 07/20/1907/20/2018 urina lysis , dipst ick Urobilinogen .2 Not Available In-Of fice Order Internal Use Only DO Not Attach Compendium DO Not Attach Compendium, Do Not Delete/merge, 07/20/2018 10:34:17 07/20/1907/20/2018 urina lysis , dipst ick Protein Negati ve Not Available In-Office Order Internal Use Only DO Not Attach Compendium DO Not Attach Compendium, Do Not Delete/merge, 07/20/2018 10:34:17 07/20/1907/20/2018 urina lysis , dipst ick pH 5.5 Not Available In-Office Order Internal Use Only DO Not Attach Compendium DO Not Attach Compendium, Do Not Delete/merge, 07/20/2018 10:34:17 07/20/1907/20/2018 urina lysis , dipst ick Blood Negati ve Not Available In-Office Order Internal Use Only DO Not Attach Compendium DO Not Attach Compendium, Do Not Delete/merge, 07/20/2018 10:34:17 07/20/19 19 07/20/2018 urina lysis , dipst ick Specific [place] 1.020 Not Available In-Off ice Order Internal Use Only DO Not Attach Compendium DO Not Attach Compendium, Do Not Delete/merge, [id number] 07/20/2018 10:34:17 07/20/1907/20/2018 urina lysis , dipst ick Ketone Negati ve Not Available In-Office Order Internal Use Only DO Not Attach Compendium DO Not Attach Compendium, Do Not Delete/merge, 07/20/2018 10:34:17 07/20/1907/20/2018 urina lysis , dipst ick Bilirubin Negati ve Not Available In-Office Order Internal Use Only DO Not Attach Compendium DO Not Attach Compendium, Do Not Delete/merge, 07/20/2018 10:34:17 07/20/19 19 07/20/2018 urina lysis , dipst ick Glucose Negati ve Not Available In-Office Order Internal Use Only DO Not Attach Compendium DO Not Attach Compendium, Do Not Delete/merge, 07/20/2018 10:34:17 07/20/1907/21/2018 hepat itis panel (A+B+ C), acute , serum hep A Ab, IgM Negati ve negati ve Not Available [facility] ([facility]) [address] [place], [address], 07/23/2018 11:35:34 07/20/1907/21/2018 hepat itis panel (A+B+ C), acute , serum HBsAg screen Negati ve negati ve Not Available [facility] ([facility]) [address] [place], [address], 07/23/2018 11:35:34 07/20/1907/21/2018 hepat itis panel (A+B+ C), acute , serum hep B core Ab, IgM Negati ve negati ve Not Available [facility] ([facility]) [address] [place], [address], 07/23/2018 11:35:34 07/20/1907/21/2018 hepat itis panel (A+B+ C), acute , serum hep C virus Ab 0.2 s/co_ ratio 0.0-0. 9 Negat curtis: < 0.8 Indet ermin ate: 0.8 - 0.9 Posit curtis: > 0.9 The [facility] recom mends that a posit curtis HCV antib sharad resul t be follo wed up with a HCV Nucle ic Acid Ampli ficat ion test (5507 13). Not Available [facility] ([facility]) [address] [facility], [place], [address], 07/23/2018 11:35:34 07/20/1907/21/2018 hepat itis B surfa ce Ab, quali tativ e, serum hep B surface Ab, qual Non Reacti ve Non React curtis: Incon siste nt with immun ity, less than 10 mIU/m L React curtis: Consi stent with immun ity, great er than 9.9 mIU/m L Not Available [facility] ([facility]) [address] [place], [address], 07/23/2018 11:35:35 07/20/1907/21/2018 trepo nema palli dum scree n, serum , refle x confi rmati on T pallidum antibodies Positi ve negati ve abnormal Not Available [facility] ([facility]) [address] [place], [address], 07/23/2018 11:35:35 07/20/1907/22/2018 trepo nema palli dum scree n, serum , refle x confi rmati on RPR Non Reacti ve non reacti ve Not Available [facility] ([facility]) [address] [place], [address], 07/23/2018 11:35:35 07/20/1907/23/2018 RPR (rapi d plasm a reagi n), serum T pallidum immunoblot Negati ve negati ve Inter preta tion: Posit curtis: Consi stent with syphi lis infec tion (past or curre nt). Equiv ocal/ Indet ermin ate: Low level s of antib sharad detec quinton but insuf ficie nt to concl ude syphi lis (eith er past or curre nt). If infec tion is suspe cted, retes t in one month . Negat curtis: Uncon firme d EIA. If patie nt is at risk, repea t testi ng in one month . Resul ts for this test are for resea rch purpo ses only by the assay 's manuf actur er. The perfo rmanc e baljinder cteri stics of this produ ct have not been estab lishe d. Resul ts shoul d not be used as a diagn ostic proce dure witho ut confi rmati on of the diagn osis by [facility] medic ally estab lishe d diagn ostic produ ct or proce dure. Not Available [facility] ([facility]) [address] [facility], [place], [address], 07/23/2018 11:35:36 07/20/19 19 07/21/2018 HIV 1+2 AB + HIV 1 p24 Ag, quali tativ e immun oassa y, serum HIV screen 4TH generation wrfx Non Reacti ve non reacti ve Not Available [facility] ([facility]) [address] [facility], [place], [address], 07/23/2018 11:35:37 07/20/1907/21/2018 HSV 2 IgG Ab, QN, IA, serum hsv 2 IgG, type spec <0.91 index 0.00-0 .90 Negat curtis <0.91 Equiv ocal 0.91 - 1.09 Posit curtis >1.09 Note: Negat curtis indic ates no antib odies detec quinton to HSV-2 . Equiv ocal may sugge st early infec tion. If clini austin appro priat e, retes t at later date. Posit curtis indic ates antib odies detec quinton to HSV-2 . Not Available [facility] ([facility]) [address] [facility], [place], [address], 07/23/2018 11:35:37 07/20/19 19 07/22/2018 bacte rial vagin osis + vagin itis panel , vagin al trich vag by HONG Negati ve negati ve Not Available [facility] ([facility]) [address] [facility], [place], [address], 07/23/2018 14:13:24 07/20/19 19 07/22/2018 bacte rial vagin osis + vagin itis panel , vagin al chlamydia trachomatis, HONG Negati ve negati ve Not Available [facility] ([facility]) [address] [facility], [place], [address], 07/23/2018 14:13:24 07/20/19 19 07/22/2018 bacte rial vagin osis + vagin itis panel , vagin al neisseria gonorrhoeae, HONG Negati ve negati ve Not Available [facility] ([facility]) [address] [place], [address], 07/23/2018 14:13:24 07/20/19 19 07/23/2018 bacte rial vagin osis + vagin itis panel , vagin al atopobium vaginae Commen t score We are UNABL E to relia ash deter mine a resul t for the speci men due to the prese nce of PCR inhib itor( s) in the speci men submi tted. If clini austin indic ated, pleas e recol lect an addit ional speci men for testi ng. Not Available [facility] ([facility]) [address] [place], [address], 07/23/2018 14:13:24 07/20/19 19 07/23/2018 bacte rial vagin osis + vagin itis panel , vagin al bvab 2 Commen t score We are UNABL E to relia ash deter mine a resul t for the speci men due to the prese nce of PCR inhib itor( s) in the speci men submi tted. If clini austin indic ated, pleas e recol lect an addit ional speci men for testi ng. Not Available [facility] ([facility]) [address] [facility], [place], [address], 07/23/2018 14:13:24 07/20/1907/23/2018 bacte rial vagin osis + vagin itis panel , vagin al megasphaera 1 Commen t score We are UNABL E to relia ash deter mine a resul t for the speci men due to the prese nce of PCR inhib itor( s) in the speci men submi tted. If clini austin indic ated, pleas e recol lect an addit ional speci men for testi ng. Calcu late total score by mary lou eason the 3 indiv idual bacte rial vagin osis (BV) marke r score s toget her. Total score is inter prete d as follo ws: Total score 0-1: Indic ates the absen ce of BV. Total score 2: Indet ermin ate for BV. Addit ional clini hernando data shoul d be evalu ated to estab grady a diagn osis. Total score 3-6: Indic ates the prese nce of BV. This test was devel oped and its perfo rmanc e baljinder cteri stics deter mined by [employer]. It has not been clear ed or appro cassi by the Food and Drug Admin istra tion. The FDA has deter mined that such clear ance or appro jaylyn is not neces michael. Not Available [facility] ([facility]) [address] [facility], [place], [address], 07/23/2018 14:13:24 07/20/1907/23/2018 bacte rial vagin osis + vagin itis panel , vagin al kelly albicans, HONG Commen t negati ve We are UNABL E to relia ash deter mine a resul t for the speci men due to the prese nce of PCR inhib itor( s) in the speci men submi tted. If clini austin indic ated, pleas e recol lect an addit ional speci men for testi ng. Not Available [facility] ([facility]) [address] [place], [address], 07/23/2018 14:13:24 07/20/1907/23/2018 bacte rial vagin osis + vagin itis panel , vagin al kelly glabrata, HONG Commen t negati ve We are UNABL E to relia ash deter mine a resul t for the speci men due to the prese nce of PCR inhib itor( s) in the speci men submi tted. If clini austin indic ated, pleas e recol lect an addit ional speci men for testi ng. This test was devel oped and its perfo rmanc e baljinder cteri stics deter mined by [employer] [facility]. It has not been clear ed or appro cassi by the Food and Drug Admin istra tion. The FDA has deter mined that such clear ance or appro jaylyn is not neces michael. Not Available [facility] ([facility]) [address] [facility], [place], [address], 07/23/2018 14:13:24 07/20/1907/22/2018 HSV (1+2) DNA, qual, PCR, unspe cifie d speci men hsv 1 HONG Negati ve negati ve Not Available [facility] ([facility]) [address] [place], [address], 07/23/2018 14:13:25 07/20/1907/22/2018 HSV (1+2) DNA, qual, PCR, unspe cifie d speci men hsv 2 HONG Negati ve negati ve Not Available [facility] ([facility]) [address] [place], [address], 07/23/2018 14:13:25 07/26/19 19 07/27/2018 trepo nema palli dum scree n, serum , refle x confi rmati on T pallidum antibodies Positi ve negati ve abnormal Not Available [facility] ([facility]) [address] [place], [address], 07/29/2018 10:36:24 07/26/19 19 07/28/2018 trepo nema palli dum scree n, serum , refle x confi rmati on RPR Non Reacti ve non reacti ve Not Available [facility] ([facility]) [address] [facility], [place], [address], 07/29/2018 10:36:24 07/26/19 19 07/29/2018 RPR (rapi d plasm a reagi n), serum T pallidum immunoblot Negati ve negati ve Inter preta tion: Posit curtis: Consi stent with syphi lis infec tion (past or curre nt). Equiv ocal/ Indet ermin ate: Low level s of antib sharad detec quinton but insuf ficie nt to concl ude syphi lis (eith er past or curre nt). If infec tion is suspe cted, retes t in one month . Negat curtis: Uncon firme d EIA. If patie nt is at risk, repea t testi ng in one month . Resul ts for this test are for resea rch purpo ses only by the assay 's manuf actur er. The perfo rmanc e baljinder cteri stics of this produ ct have not been estab lisbrittany d. Resul ts shoul d not be used as a diagn ostic proce dure witho ut confi rmati on of the diagn osis by [facility] medic ally estab lishe d diagn ostic produ ct or proce dure. Not Available [facility] ([facility]) [address] [facility], [place], [address], 07/29/2018 10:36:24 08/16/19 19 08/17/2018 inhib in A + B panel , serum or plasm a inhibin A, ultrasensiti ve 8.8 pg/mL Menst rual Phase Early Folli cular <34.0 Late Folli cular <99.0 Perio vulat ory 8.0-2 33.0 MidLu teal <145. 0 End Lutea l <145. 0 Postm enopa usal <4.0 Not Available [facility] ([facility]) [address] [place], [address], 08/19/2018 16:16:37 08/16/19 19 08/19/2018 inhib in A + B panel , serum or plasm a inhibin B 47.5 pg/mL Early Folli cular <261. 0 Late Folli cular <286. 0 Perio vulat ory <189. 0 MidLu teal <164. 0 End Lutea l <107. 0 Post Menop ausal < 17.0 Resul ts for this test are for resea rch purpo ses only by the assay 's manuf actur er. The perfo rmanc e baljinder cteri stics of this produ ct have not been estab neela larkin. Resul ts shoul d not be used as a diagn ostic proce dure witho ut confi rmati on of the diagn osis by [facility] medic ally estab neela d diagn ostic produ ct or proce dure. Not Available [facility] ([facility]) [address] [facility], [place], [address], 08/19/2018 16:16:37 08/16/19 19 08/16/2018 zander (risk of ovari an davis mcnamara algor ith score ), serum (zarina enopa usal) premenopausa l interp: low Commen t If the patie nt is preme nopau julita, then the preme nopau julita ZANDER score of less than 1.14 is consi stent with a low likel ihood of findi ng a davis mcnamara on surge ry. Not Available [facility] ([facility]) [address] [place], [address], 08/19/2018 16:16:37 08/16/19 19 08/16/2018 zander (risk of ovari an malig naima algor ithm score ), serum (zarina enopa usal) postmenopaus al interp: low Commen t If the patie nt is postm enopa usal, then the postm enopa usal ZANDER score of less than 2.99 is consi stent with a low likel ihood of findi ng a malig naima on surge ry. Not Available [facility] ([facility]) [address] [facility], [place], [address], 08/19/2018 16:16:37 08/16/19 19 08/16/2018 zander (risk of ovari an malig naima algor ithm score ), serum (zarina enopa usal) comment: Commen t The Risk for Ovari an Malig naima Algor ithm (ZANDER ) test is inten ded to aid in asses sing wheth er a preme nopau julita or postm enopa usal woman who prese nts with an ovari an adnex al mass is at high or low likel ihood of findi ng davis mcnamara on surge ry. ZANDER is indic ated for women who meet the follo wing crite delma: over age 18; ovari an adnex al mass prese nt for which surge ry is plann ed, and not yet refer red to an oncol ogist . ZANDER must be inter prete d in conju nctio n with an indep enden t clini hernando and radio logic al asses sment . The test is not inten ded as a scree bryan or stand -gregg e diagn ostic assay . HE4 and CA125 value s obtai cleve with diffe rent assay metho ds or kits canno t be used inter aleman eaperryy . Not Available [facility] ([facility]) [address] [facility], [place], [address], 08/19/2018 16:16:37 08/16/19 19 08/17/2018 zander (risk of ovari an malig naima algor ithm score ), serum (zarina enopa usal) cancer antigen (Ca) 125 12.2 U/mL 0.0-38 .1 Anthony Diagn ostic s Elect anthony milum inesc ence Immun oassa y (ECLI A) Value s obtai cleve with diffe rent assay metho ds or kits canno t be used inter ash olivo . Resul ts canno t be inter prete d as absol pit[place] point evide nce of the prese nce or absen ce of malig nant disea se. Not Available [facility] ([facility]) [address] [place], [address], 08/19/2018 16:16:37 08/16/19 19 08/18/2018 zander (risk of ovari an malig naima algor ithm score ), serum (zarina enopa usal) he4 47.1 pmol/ L 0.0-61 .2 Anthony Diagn ostic s Elect anthony milum inesc ence Immun oassa y (ECLI A) Value s obtai cleve with diffe rent assay metho ds or kits canno t be used inter aleman pallavi . Resul ts canno t be inter prete d as absol [place] point evide nce of the prese nce or absen ce of malig nant disea se. Not Available [facility] ([facility]) [address] [place], [address], 08/19/2018 16:16:37 08/16/19 19 08/18/2018 zander (risk of ovari an malig naima algor ithm score ), serum (zarina enopa usal) premenopausa l zander 0.64 see below Not Available [facility] ([facility]) [address] [place], [address], 08/19/2018 16:16:37 08/16/19 19 08/18/2018 zander (risk of ovari an malig naima algor ithm score ), serum (zarina enopa usal) postmenopaus al zander 0.95 see below Not Available [facility] ([facility]) [address] [place], [address], 08/19/2018 16:16:37 08/16/19 19 08/17/2018 carci noemb ryoni c Ag, quant , serum or plasm a cea 2.2 NG/mL 0.0-4. 7 Nonsm okers <3.9 Smoke rs <5.6 Anthony Diagn ostic s Elect anthony milum inesc ence Immun oassa y (ECLI A) Value s obtai cleve with diffe rent assay metho ds or kits canno t be used inter aleman eably . Resul ts canno t be inter prete d as absol [place] point evide nce of the prese nce or absen ce of [facility]. Not Available [facility] ([facility]) [address] [facility], [place], [address], 08/19/2018 16:16:38 08/16/19 19 08/17/2018 afp (alph a-fet oprot ein) tumor marke r, serum or plasm a AFP, serum, tumor marker 5.0 NG/mL 0.0-8. 3 Anthony Diagn ostic s Elect anthony milum inesc ence Immun oassa y (ECLI A) Value s obtai cleve with diffe rent assay metho ds or kits canno t be used inter aleman eably . Resul ts canno t be inter prete d as absol [place] evide nce of the prese nce or absen ce of [facility]. This test is not inter preta ble in pregn ant femal es. Not Available [facility] ([facility]) [address] [facility], [place], [address], 08/19/2018 16:16:39 08/16/19 19 08/17/2018 HCG, intac t + beta subun it, quant , serum or plasm a HCG,beta subunit,qnt, serum 3 mIU/m L Femal e (Non- pregn ant) 0 - 5 (Post menop ausal ) 0 - 8 Femal e (Preg nant) Weeks of Gesta tion 3 6 - 71 4 10 - 750 5 571 - 2425 6 447 - 03770 7 4914 -7926 63 8 67959 -2801 71 9 35765 -3694 10 10 98494 -1869 77 12 34988 -2106 12 14 93094 - 16435 15 15762 - 75674 16 7480 - 66701 17 1000 - 12395 18 6425 - 40686 Anthony ECLIA metho dolog y Not Available [facility] ([facility]) [address] [facility], [place], [address], 08/19/2018 16:16:39 08/16/19 19 08/17/2018 ldh, serum or plasm a LDH 179 IU/L 119-22 6 Not Available [facility] ([facility]) [address] [facility], [place], [address], 08/19/2018 16:16:40 11/05/19 15 11/04/2014 imagi ng/di agnos tic resul t No observ ation record ed. [email or web address] Not Available 2014 23:27:59 11/20/19 15 11/18/2014 imagi ng/di agnos tic resul t No observ ation record ed. [facility] ([facility]) [address] [place], [address], 11/20/2014 16:46:46 12/21/19 15 12/19/2014 imagi ng/di agnos tic resul t No observ ation record ed. [facility] ([facility]) [address] [place], [address], 12/20/2014 09:16:41 12/27/19 15 12/19/2014 imagi ng/di agnos tic resul t No observ ation record ed. [facility] ([facility]) [address] [place], [address], 12/26/2014 09:10:49 09/12/19 16 09/12/2015 CT, sinus es No observ ation record ed. [facility] ([facility]) [address] [place], [address], 09/12/2015 20:14:41 08/02/19 19 08/02/2018 US, breas t, bilat eral, w/ axill a No observ ation record ed. [facility] [address] [place], [address], 08/03/2018 17:29:58 08/02/19 19 08/02/2018 US, breas t, bilat eral, w/ axill a No observ ation record ed. [email or web address] Not Available 2018 13:52:37 08/12/19 19 08/02/2018 US, pelvi s, trans abdom inal + trans vagin al No observ ation record ed. [facility] ([facility]) [address] [place], [address], 08/16/2018 15:28:22 Result Notes None recorded. Problems Name Problem SNOMED Code Status Onset Date Resolution Date Notes Provider Name and Address Organization Details Recorded Time Syphilis 53691114 Active 2018 Jyoti Moses MD Attn: Accounting, [address] [place], [address], [facility] 9 12:03:36 Diverticular disease [id number] Active Crystal Mina MD Attn: Accounting, [address] [place], [address], [facility] 5 16:44:18 Abdominal pain 62425815 Active Crystal Mina MD Attn: Accounting, [address] [place], [address], [place] [facility] 4 16:13:19 Gastroesopha geal reflux disease 897244687 Active Crystal Mina MD Attn: Accounting, [address] [place], [address], [facility] 4 16:13:19 Notes: I am just here for my follow up Problem Notes None recorded. Procedures Surgical History Date Name Laterality Status Provider Name and Address Organization Details Recorded Time endometrial ablation completed Chris Moses MD Attn: Accounting,[address], [place], [address], [facility] 07/20/2018 09:47:46 bariatric operative procedure completed Jyoti Moses MD Attn: Accounting,[address], [place], [address], [facility] 07/20/2018 10:23:16 Hysterectomy completed September [facility] 06/28/2014 15:32:38 Dilation and Curettage completed September [facility] 06/28/2014 15:32:38 Arthroscopic Surgery completed Avinash gentry Ron [facility] 06/28/2014 15:32:38 Gastrointestinal Surgery completed September [facility] 06/28/2014 15:32:38 Knee Surgery completed September [facility] 06/28/2014 15:32:38 Imaging Results Imaging Date Name Status LastModified by Organization Details LastModified Time 11/04/2014 imaging/diagnostic result completed [facility] Information not available 11/05/2014 23:27:59 11/18/2014 imaging/diagnostic result completed [facility] (Imaging) [address] [place], [address], 11/20/2014 16:46:46 12/19/2014 imaging/diagnostic result completed [facility] (Imaging) [address] [place], [address], 12/20/2014 09:16:41 12/19/2014 imaging/diagnostic result completed [facility] (Imaging) [address] [place], [address], 12/26/2014 09:10:49 09/12/2015 CT, sinuses completed [facility] (Imaging) [address] [place], [address], 09/12/2015 20:14:41 08/02/2018 US, breast, bilateral, w/ axilla completed [email or web address] [address] [place], [address], 08/03/2018 17:29:58 08/02/2018 US, breast, bilateral, w/ axilla completed [email or web address] Information not available 08/04/2018 13:52:37 08/02/2018 US, pelvis, transabdominal + transvaginal completed [facility] ([facility]) [address] [place], [address], 08/16/2018 15:28:22 Procedure Notes None recorded. Medical Equipment None Reported. Allergies No known drug allergies Medications Name Sig Start Date Stop Date Status Note LastModified by Organization Details LastModified Time cyclobenzap rine 10 mg tablet active Not Available Not Available Not Available amoxicillin 500 mg capsule active Not Available Not Available Not Available metformin 500 mg tablet 07/20 completed Not Available Not Available Not Available ibuprofen 800 mg tablet 10/12 completed Not Available Not Available Not Available fluconazole 150 mg tablet TAKE 1 TABLET BY MOUTH active Not Available Not Available No t Available hydrocodone 5 mg-acetamin ophen 325 mg tablet 10/12 completed Not Available Not Available Not Available sucralfate 1 gram tablet 07/20 completed Not Available Not Available Not Available ondansetron HCl 4 mg tablet active Not Available Not Available Not Available metronidazo le 500 mg tablet Take 1 tablet twice a day by oral route for 7 days. active Not Available Not Available No t Available prochlorper azine maleate 10 mg tablet 10/12 completed Not Available Not Available Not Available hydrocodone 10 mg-acetamin ophen 325 mg tablet 07/20 completed Not Available Not Available Not Available tramadol 50 mg tablet active Not Available Not Available No t Available Nitrostat 0.4 mg sublingual tablet active Not Available Not Available Not Available baclofen 10 mg tablet 10/12 completed Not Available Not Available Not Available hydrocodone 7.5 mg-acetamin ophen 325 mg tablet active Not Available Not Available No t Available pantoprazol e 40 mg tablet,em yed release TAKE ONE TABLET BY MOUTH TWICE DAILY active Not Available Not Available No t Available nystatin 100,000 unit/gram topical cream 07/20 completed Not Available Not Available Not Available Bicillin L-A 2,400,000 unit/4 mL intramuscul ar syringe Inject 4 mL every week by intramusc ular route for 21 days. 2018 active Not Available Not Available Not Avai lable diclofenac sodium 50 mg tablet,em yed release 10/12 completed Not Available Not Available Not Available ibuprofen 600 mg tablet active Not Available Not Available Not Available hydrocodone 10 mg-acetamin ophen 650 mg tablet 10/12 completed Not Available Not Available Not Available fluocinonid e 0.05 % topical cream 07/20 completed Not Available Not Available Not Available metformin ER 500 mg tablet,exte nded release 24 hr active Not Available Not Available Not Available dicyclomine 10 mg capsule 07/20 completed Not Available Not Available Not Available Ventolin HFA 90 mcg/actuati on aerosol inhaler Inhale 2 puffs every 4 hours by inhalatio n route. active Not Available Not Available No t Available bupropion HCl XL 150 mg 24 hr tablet, extended release active Not Available Not Available Not Available metoprolol tartrate 25 mg tablet one po BID for hypertens ion 07/20 completed Not Available Not Available Not Available hydrocodone 7.5 mg-acetamin ophen 325 mg/15 mL oral solution 07/20 completed Not Available Not Available Not Available duloxetine 20 mg capsule,del ayed release active Not Available Not Available Not Available duloxetine 60 mg capsule,del ayed release active Not Available Not Available Not Available calcium active Not Available Not Avail able Not Available multivitami n active Not Available Not Available Not Available Probiotic active Not Available Not Symone ilable Not Available Linzess 145 mcg capsule active Not Available Not Available Not Available Vitals Date Recorded Body weight Systolic blood pressure Diastolic blood pressure Provider Name and Address Organization Details Last Updated DateTime 07/20/2018 50313.33 g 128 mm[Hg] 88 mm[Hg] Harpreet Quintero [place] [facility] 07/20/2018 09:11:34 Date Recorded Body weight Systolic blood pressure Diastolic blood pressure Provider Name and Address Organization Details Last Updated DateTime 08/16/2018 13665.33 g 126 mm[Hg] 88 mm[Hg] Harpreet Quintero [place] [facility] 08/16/2018 14:59:07 Date Recorded Body temperature Body height Body mass index (BMI) Heart rate Respiratory rate Body weight Systolic blood pressure Diastolic blood pressure Provider Name and Address Organization Details Last Updated DateTime 5 98 [degF] 170.18 cm 45.4 kg/m2 84 /min 20 /min 204045. 7873 g 140 mm[Hg] 88 mm[Hg] September GUERLINE Velasquez [facility] 5 16:26:30 Social History Question Answer Notes LastModified by Organizat ion Details LastModified Time Tobacco Smoking Status Never Smoker September GUERLINE Velasquez [place], [place] - [facility] 06/28/2014 15:32:39 Do You Have An Advance Directive? No Information not available 07/20/2018 What Is Your Level Of Alcohol Consumption? None Information not available 07/20/2018 Is Blood Transfusion Acceptable In An Emergency? Yes Information not available 07/20/2018 What Is Your Level Of Caffeine Consumption? Moderate Information not available 07/20/2018 How Much Tobacco Do You Chew? None Information not available 07/20/2018 Are You Currently Employed? No Information not available 07/20/2018 What Type Of Diet Are You Following? REGULAR Information not available 07/20/2018 Which Illicit Or Recreational Drugs Have You Used? Denies Information not available 07/20/2018 Education 2 Year College Informatio n not available 07/20/2018 What Is Your Occupation? Disabled Information not available 07/20/2018 Are There Any Guns Present In Your Home? No Information not available 07/20/2018 Hard Of Hearing Or Deaf In One Or Both Ears? No Information not available 07/20/2018 Legally Blind In One Or Both Eyes? No Information no t available 07/20/2018 Live Alone Or With Others? With Others Information not available 07/20/2018 Marital Status Informatio n not available 07/20/2018 What Was The Date Of Your Most Recent Tobacco Screening? 08/16/2018 Information not available 01/20/2019 How Many Children Do You Have? 3 Information not available 07/20/2018 Performs Monthly Self-breast Exam? No [facility] Information no t available 07/20/2018 Do You Use Protection During Sex? No [facility] for Information not available 07/20/2018 What Is Your Relationship Status? [facility] for Information not available 07/20/2018 Seat Belts Used Routinely Yes [facility] for Information not available 07/20/2018 Are You Sexually Active? Yes [facility] for Information not available 07/20/2018 Smoke Alarm In Home Yes [facility] for Information not available 07/20/2018 How Much Tobacco Do You Smoke? No [facility] Information not available 08/16/2018 General Stress Level High [facility] for Information not available 07/20/2018 Do You Use Sunscreen Routinely? Yes [facility] for Information not available 07/20/2018 How Many Years Have You Smoked Tobacco? 0 [facility] for Information not available 07/20/2018 Sex: Unknown Functional Status Question Answer Note LastModified by Organizat ion Details LastModified Time What is your exercise level? Occasional [facility] for Information not available 07/20/2018 Mental Status None recorded. Family History Relationship Description Onset Age of this Age Resolved Age Notes LastModified by Organization Details LastModified Time Mother Disorder of thyroid gland asavala Not available 2013 15:32:38 Mother Hypertensive disorder asavala Not available 2013 15:32:38 Mother Kidney disease asavala Not available 2013 15:32:38 Brother Hypertensive disorder asavala Not available 2013 15:32:38 Brother Migraine asavala Not available 06/28/2014 15:32:38 Father Malignant tumor of pancreas asavala Not available 2013 15:32:38 Medical History Condition Response Coronary Artery Disease N Other N High Blood Pressure Y Atrial Fibrillation N Thyroid Problems N Kidney or Bladder Problems N GI Problems N Depression N COPD N Blood Clots Y Skin Problems N Anemia N Heart Attack (RI) N Anxiety Disorder Y Diabetes N Muscle, Joint, or Bone Problems Y Seizures/Epilepsy N Acid Reflux (GERD) Y Cancer N Stroke N Asthma Y Allergies N High Cholesterol N Hepatitis N Liver Disease N Headaches Y Osteoporosis N Heart Failure N Gynecological History Statement/Question Response Abnormal Pap N STIs/STDs N HPV Vaccine N Age at Menarche 11 Current Control Method Hysterectom y Age at First Child 17 If Post Menopausal, Age at Menopause Sexually Active? Y Menses Monthly N Date of Last Pap Smear Sexual Problems? N LMP Obstetrics History GPAL:G 3 P 2 1 0 3 Type Value Multiple Births 0 Full Term 2 Induced 0 Spontaneous 0 Premature 1 Living 3 Ectopics 0 Total 3 Past Encounters Encounter ID Performer Location Encounter Start Date Encounter Closed Date Diagnosis/Indication Diagnosis SNOMED-CT Code Diagnosis ICD10 Code Diagnosis Note [id number] MARIELOS Arreola (Adult Med) [address] [place] [address] [id number] 06/28/2014 15:15:04 06/28/2014 17:20:53 Abdominal pain 42811447 L mid abdominal pain in a 33y/o lady s/p lap band surgery, I will like to obtain a CT scan and proceed with a referral to a bariatric surgeon. Her weight gain may mean she needs her lapband adjusted. Labs were also ordered. She follows up with Dr. Hernandez (Cinetechnician) and apparently had a FRANSISCO some time ago with multiple laparoscop ic surgeries, she has either one or both ovaries and she is on Metformin for PCOS Gastroesop hageal reflux disease [id number] General ex amination of patient 270864353 She has refused the Influenza vaccine, her 29lb weight gain despite lap-band surgery prompts the need for an evaluation by a bariatric surgeon locally, as she is unable to go back to [place]. I will initiate a referral [id number] Analisa Steiner (Adult Med) [address] [place] [address] [phone] 10/12/2014 15:52:14 10/12/2014 17:36:07 Diverticular disease [id number] Noted on CT, her normal labs were discussed [id number] MD Obdulia Kuo (RESIDENCE LEASING AGENT) [address] [place] [address] [phone] 07/20/2018 08:54:48 07/20/2018 17:04:55 Gynecologic examination 60978512 Z01.419 Age appropriat e counseling done. Venereal d isease screening 057976586 Z11.3 Z20.2 Pain in pelvis 15355337 R10.2 COUNSELED THOROUGHLY ABOUT IT. REVIEWED CT PELVIS FROM 04/27/18 - 7.5 CM LEFT ADNEXAL CYST. COUNSELED THOROUGHLY ABOUT IT. TVUS ORDERED. Cyst of ovary 01406756 N 83.[address] PELVIS FROM 04/27/18 - 7.5 CM LEFT ADNEXAL CYST. COUNSELED THOROUGHLY ABOUT IT. TVUS ORDERED. Bacterial vaginosis 4197 31269 N76.0 COUNSELED THOROUGHLY ABOUT IT. Breast lump 81817529 N63 .0 COUNSELED THOROUGHLY ABOUT IT. Morbid obesity 384085540 E66.01 Counseled About weight loss, diet and excercise. Advised patient to f/u with ornamental metal worker helper. Candidiasis of skin 4988 3006 B37.2 COUNSELED THOROUGHLY ABOUT IT. Female str ess incontinence 57585401 N39.3 COUNSELED THOROUGHLY ABOUT IT AND KEGEL EXCERCISES . SINCE ITS ONLY ONCE ENCOURAGE KEGEL EXCERCISES . [id number] Eusebia Steiner (RESIDENCE LEASING AGENT) [address] [place] [address] [id number] 08/02/2018 16:15:38 08/03/2018 10:32:07 Candidiasis of vagina 11831083 B37.3 Syphilis 09756026 A53.9 [id number] Eusebia Spainquyen Steiner (RESIDENCE LEASING AGENT) [address] [place] [address] [phone] 08/09/2018 17:10:05 08/10/2018 10:39:52 Syphilis 87218859 A53.9 [id number] MD Obdulia Kuo (RESIDENCE LEASING AGENT) [address] [place] [address] [id number] 08/16/2018 14:46:40 08/17/2018 13:27:00 Cyst of left ovary 9425739382 3019369 N83.202 D/W patient TVUS result. Counseled thoroughly about the ovarian cyst with heterogeno us areas. Gave patient orders sheet for tumor markers. 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 Syphilis 40461189 A53.9 Counseled about it. Patient say she received all shots. She say she has appointmen t with ID. Health Concerns Section Related Observation LastModified by Organization Detai ls LastModified Time None Recorded Concern Status LastModified by Organization Details LastModified Time None Recorded Advance Directives Directive N: Payers Encounter Date Sequence Insurance Name Policy Number Policy Ramirez Covered Member ID Ramirez Member ID Guarantor Name 10/12/2014 1 [place] Dory Barnes [id number] Dory Barnes 10/12/2014 2 [place] WHEN [place] OR MEDICARE REPLACEMENT PRIMARY) Dory Barnes [id number] [employer] 07/20/2018 1 [place] Dory Barnes [id number] [employer] 07/20/2018 2 [place] OR MEDIC[place] REPLACEMENT PRIMARY) Dory Johnsonll [id number] [employer] 08/02/2018 2 [place] OR MEDIC[place] REPLACEMENT PRIMARY) Dory Johnsonll [id number] [employer] 08/02/2018 1 [place] ACC[place]UAL [place]IG[place] (MEDICARE - MEDICAID REPLACEMENT HMO) Dory Johnsonll [id number] [employer] 08/09/2018 2 [place] OR MEDIC[place] REPLACEMENT PRIMARY) Dory Johnsonll [id number] [employer] 08/09/2018 1 [place]MEDICARE - MEDICAID REPLACEMENT HMO) Dory Barnes [id number] [employer] 08/16/2018 2 [place] OR MEDICARE REPLACEMENT PRIMARY) Dory Johnsonll [id number] [employer] 08/16/2018 1 [place] (MEDICARE - MEDICAID REPLACEMENT HMO) Dory Barnes [id number] [facility] Notes Date Note Type Note Provider Name and Address Organization Details Recorded Time 07/20/2018 text/html Annual GYNReport ed bypatient.History: no gynecologic complaints Menstrual cycle:s/p hysterectomy for fibroid uterus in 2007. Patient say she has only left ovary. Urinary symptoms:No hematuria;Stress incontinence; Patient say she had it only once. Vulva:No genital lesion Vagina:Normal vaginal discharge Breast:No breast pain; No breast lump; No nipple discharge Current Contraception:s/p hysterectomy. Sexual complaints:No sexual complaints; No pain during intercourse; Normal libido Menopausal Symptoms:No menopausal symptoms; Normal vaginal lubrication Psychological symptoms:No depression; No anxiety; No PMDD Preventive measures:Encourage self breast examination; Encourage regular exercise; Encourage no tobacco use; Encourage regular mammograms starting age 40; Needs to schedule mammogram; also counseled about calcium intake and advised to start over the counter calcium treatment.Pelvic PainReported bypatient.Location :bilateral Onset/Timin-6 months; Patient say pelvic pain started in 03/2018. She say she went to ER at that time and she was told that she had twisted hernia and LEFT OVARIAN CYST. She say she underwent emergent hernia repair surgery. Reviewed CT pelvis from 04/27/18 - 7.5 cm left adnexal cyst. Duration:constant Quality:tender Severity:pain level 01/05 Context:history of ovarian cysts; history of hysterectomy Alleviating Factors:none Aggravating Factors:none Associated Symptoms:no abdominal pain; no back pain; no chills; no constipation; no diarrhea; no vaginal discharge; no pain with urination; normal emptying of bladder; no feelings of urgency; no blood in the urine; normal libido; no fever; no nausea; no vomiting; no nocturia; no sexual abuse; no ectopic pregnancies; no endometriosis; no urinary frequency; no vaginal itching or irritation; no dyspareunia Jyoti Moses MD Attn: [facility],[address] [place], [address], [facility] 07/20/2018 12:30:02 08/16/2018 text/html Patient here to f/u on TVUS for pelvic pain. Patient denies any active vaginal bleeding today or vaginal discharge. Jyoti Moses MD Attn: [facility],[address] [place], [address], [facility] 08/16/2018 15:33:39 OBGyn Episode Ob Episode Information Episode Created Date Number of Fetuses Patient Bloodtype Patient rh Status Prepregnancy Weight lbs Domestic Partner Domestic Partner Phone Father Name Linen Room Supervisor Status 07/20/19 19 1 CLOSED Fetus Data First Name Last Name Admitted to NICU Weight (g) Sex Living Outcome Pediatric Complications Fetus ID Race Codes Race Delivery Type 3572.03 7 F Full Term [id number] Vaginal Only Martir Calculation Initial Martir Date Initial Exam Date Initial Exam Provider Initial Ultrasound Date Last Menstrual Period Date Ultra Sound Weeks Gestation 0 Eighteen To Twenty Week Martir Update Ultra Sound Date Fundal Height At Umbil Quickening Date Ultra Sound Latest Weeks Gestation Final Martir Confirmed By Final Martir Confirmed Date Final Martir Date Ultra Sound Latest Days Gestation 0 0 Menstrual History Last Menstrual Date Menses Monthly On Bcp Conception Prior Menses Frequency Hcg Plus Date Menarche Onset Age Delivery Information Delivery Date Delivery Type Labor Anesthesia Weeks Gestation Incision Type Labor Labor Length Hrs Delivered By Post Complications Tubal Sterilization Discharge Date Comments 1 Discharge Information Feeding Method Contraceptive Method Maternal HG B and HCT Levels Ob Episode Information Episode Created Date Number of Fetuses Patient Bloodtype Patient rh Status Prepregnancy Weight lbs Domestic Partner Domestic Partner Phone Father Name Linen Room Supervisor Status 07/20/19 19 1 CLOSED Fetus Data First Name Last Name Admitted to NICU Weight (g) Sex Living Outcome Pediatric Complications Fetus ID Race Codes Race Delivery Type 2834.95 M Prematur e [id number] Vaginal Only Martir Calculation Initial Martir Date Initial Exam Date Initial Exam Provider Initial Ultrasound Date Last Menstrual Period Date Ultra Sound Weeks Gestation 0 Eighteen To Twenty Week Martir Update Ultra Sound Date Fundal Height At Umbil Quickening Date Ultra Sound Latest Weeks Gestation Final Martir Confirmed By Final Martir Confirmed Date Final Martir Date Ultra Sound Latest Days Gestation 0 0 Menstrual History Last Menstrual Date Menses Monthly On Bcp Conception Prior Menses Frequency Hcg Plus Date Menarche Onset Age Delivery Information Delivery Date Delivery Type Labor Anesthesia Weeks Gestation Incision Type Labor Labor Length Hrs Delivered By Post Complications Tubal Sterilization Discharge Date Comments 8 34 Discharge Information Feeding Method Contraceptive Method Maternal HG B and HCT Levels Ob Episode Information Episode Created Date Number of Fetuses Patient Bloodtype Patient rh Status Prepregnancy Weight lbs Domestic Partner Domestic Partner Phone Father Name Linen Room Supervisor Status 07/20/19 19 1 CLOSED Fetus Data First Name Last Name Admitted to NICU Weight (g) Sex Living Outcome Pediatric Complications Fetus ID Race Codes Race Delivery Type 3231.84 3 F Full Term [id number] Vaginal Only Martir Calculation Initial Martir Date Initial Exam Date Initial Exam Provider Initial Ultrasound Date Last Menstrual Period Date Ultra Sound Weeks Gestation 0 Eighteen To Twenty Week Martir Update Ultra Sound Date Fundal Height At Umbil Quickening Date Ultra Sound Latest Weeks Gestation Final Martir Confirmed By Final Martir Confirmed Date Final Martir Date Ultra Sound Latest Days Gestation 0 0 Menstrual History Last Menstrual Date Menses Monthly On Bcp Conception Prior Menses Frequency Hcg Plus Date Menarche Onset Age Delivery Information Delivery Date Delivery Type Labor Anesthesia Weeks Gestation Incision Type Labor Labor Length Hrs Delivered By Post Complications Tubal Sterilization Discharge Date Comments 5 Discharge Information Feeding Method Contraceptive Method Maternal HG B and HCT Levels
--- OUTSIDE RECORDS SUMMARY | 2024-08-10 12:06 | XMS_ITS | CONTINUITY OF CARE DOCUMENT ---
Author Name priscila francois Address Unknown Organization [facility] Address [address] [place] [address] Phone [phone] Care Team Providers Care Recording Clerk Name Role Phone Abelino Ny MD Unavailable WILLIAM MELENDEZ DO Unavailable WILLIAM MELENDEZ DO Unavailable [phone] PROBLEMS Condition Status Date Provider Notes CHEST PAIN-04/2014 NUC NEG EF60% - 02/03 NUC ISCHEMIA completed - Evelio Gilmore DVT-09/07 SHIV DOP NEG active - Abelino carnes MD Family History of Hypertension: completed - César Ny MD GERD active Evelio Gilmore Bilateral leg Edema active Abelino Ruiz CHOLECYSTECTOMY, HX OF MAY 2010 completed - Evelio Gilmore CAD-02/03 CATH NO CAD completed - Abelino carnes MD PREOPERATIVE CARDIOVASCULAR EXAMINATION active - Abelino Ny MD POLYCYSTIC OVARIAN DISEASE REMOVED MAY 2010 active Abelino Ny MD PE, HX OF active Abelino Ny MD OBESITY- s/p lap band revision active Denae Ny MD HTN-02/06 ECHO EF 60-06/04 EC HO EF 60 active ? James Weldon RN ENCOUNTERS Date Type Provider Location Encounter Diag nosis - In-person encounter Office Visit Abelino Ny MD [facility] CHEST PAIN-04/2014 NUC NEG EF60% - 02/03 NUC ISCHEMIACHOLECYSTECTOM Y, HX OF MAY 2010GERD - In-person encounter Office Visit Abelino Ny MD [facility] Bilateral leg Edema - In-person encounter Office Visit Cameron Ramírez MD [facility] - In-person encounter Office Visit Abelino Ny MD [facility] OBESITY- s/p lap band revision - In-person encounter Office Visit Abelino Ny MD [facility] - In-person encounter Office Visit Abelino Ny MD [facility] OBESITY- s/p lap band revision - In-person encounter Office Visit Abelino Ny MD [facility] Family History of Hypertension: - In-person encounter Office Visit Abelino Ny MD [facility] - In-person encounter Office Visit Abelino Ny MD [facility] - In-person encounter Office Visit Abelino Ny MD [facility] PE, HX OFPREOPERATIVE CARDIOVASCULAR EXAMINATIONCAD-02/03 CATH NO CADDVT-09/07 SHIV DOP NEG - In-person encounter Office Visit Abelino Ny MD [facility] OBESITY- s/p lap band revision - In-person encounter Office Visit Abelino Ny MD [facility] - In-person encounter Office Visit Abelino Ny MD [facility] - In-person encounter Office Visit Abelino Ny MD [facility] POLYCYSTIC OVARIAN DISEASE REMOVED MAY 2010 - In-person encounter Office Visit Abelino Ny MD [facility] - In-person encounter Office Visit Abelino Ny MD [facility] - In-person encounter Office Visit Abelino Ny MD [facility] HTN-02/06 ECHO EF 60-06/04 ECHO EF 60CHEST PAIN-04/2014 NUC NEG EF60% - 02/03 NUC ISCHEMIA - In-person encounter Office Visit Gary Angeles MD [facility] VITAL SIGNS Date Observation Value Provider Body Mass Index (Ratio) 35.77 kg/m2 Manjeet Carcamote blood pressure, diastolic 70 mm[Hg] Kr isty Leonela blood pressure, systolic 110 mm[Hg] Kri sty Leonela oxygen saturation, oximetry 98 % Kena [place] respiratory rate E&M 17 /min Kena [place] pulse rate 82 /min Kena Leonela blood pressure, cuff size regular Kr alexandra [place] weight E&M 215 [lb_av] Kena [place] height E&M 65 [in_i] Kena [place] Body Mass Index (Ratio) 33.11 kg/m2 Scottie Ny MD oxygen saturation, oximetry 99 % [facility] pulse [facility] 83 /min [facility] blood pressure, diastolic 70 mm[Hg] Ch [...] MD blood pressure, diastolic 80 mm[Hg] [facility], [facility] 110 mm[Hg] Kil sergio [place] oxygen saturation, oximetry 98 % [facility] respiratory rate E&M 16 /min [facility] pulse rate 81 /min [facility] weight E&M 189 [lb_av] [facility] height E&M 65 [in_i] [facility] Body Mass Index (Ratio) 44.59 kg/m2 Scottie Ny MD blood pressure, cuff size large Ke rri Conchis blood pressure, diastolic 84 mm[Hg] Ke rri Conchis blood pressure, systolic 132 mm[Hg] Maura Balderrama oxygen saturation, oximetry 99 % Bebe Balderrama respiratory rate E&M 18 /min Bebe patel pulse rate 78 /min Bebe Arun [facility] weight E&M 268 [lb_av] Bebe Arun [facility] height E&M 65 [in_i] Bebe Arun [...] Shan hawa Taylor pulse rate 95 /min [facility] saturation, oximetry 98 % [facility] respiratory rate E&M 16 /min [facility] weight E&M 262.25 [lb_av] Krystian [...] patel weight E&M 281 [lb_av] Bebe Dias [facility] height E&M 65 [in_i] Bebe [facility] blood pressure, diastolic, left arm 110 m m[Hg] Shanhawa Taylor blood pressure, systolic, left arm 159 mm [Hg] Shanhawa Taylor blood pressure, diastolic, right arm 137 mm[Hg] Shanhawa Taylor blood pressure, systolic, right arm 170 m m[Hg] Shanhawa Taylor blood pressure, diastolic 110 mm[Hg] Fleming Taylor blood pressure, systolic 159 mm[Hg] Shan de la cruz Taylor pulse rate 99 /min [facility] oxygen saturation, oximetry 96 % [facility] respiratory rate E&M 18 /min [facility] weight E&M 286 [lb_av] Shanhawa Taylor blood pressure, diastolic 95 mm[Hg] Fleming Taylor blood pressure, systolic 140 mm[Hg] Shan de la cruz Taylor pulse rate 85 /min [facility] oxygen saturation, oximetry 99 % [facility] respiratory rate E&M 16 /min [facility] weight E&M 272 [lb_av] Shanhawa Taylor blood pressure, diastolic, left arm 80 mm [Hg] Shanyehawa Taylor blood pressure, systolic, left arm 120 mm [Hg] [facility] blood pressure, diastolic, right arm 88 m m[Hg] Shanhawa Taylor blood pressure, systolic, right arm 123 m m[Hg] [facility] oxygen saturation, oximetry 99 % [facility] blood pressure, diastolic 98 mm[Hg] Pimenteleadestiney Taylor [...] jose albertomagnolia weight E&M 320 [lb_av] Lorna Kma ALLERGIES No Known Drug Allergies RESULTS Date [...] [employer] 3.5-5.1 sodium, serum 141 mmol/L [facility] [phone]/09/ 28 creatinine, serum 0.7 mg/dL [facility] 0.5-0.9 carbon dioxide, venous blood 28 mmol/L [employer] 22-29 albumin, serum 4.7 g/dL [employer] 3.5-5.2 calcium, serum 9.7 mg/dL [facility] 8.6-10.2 aspartate aminotransferase (SGOT), serum 25 1/L [facility] 0-32 alkaline phosphatase, serum 85 1/L [facility] 40-130 alanine aminotransferase (SGPT), serum 27 1/L [facility] 0-33 protein, total, serum 7.8 g/dL [facility] 6.6-8.7 bilirubin, serum, total 0.3 mg/dL [facility] 0.0-1.2 urea nitrogen, blood 14 mg/dL [facility] 6-20 blood glucose, random 94 mg/dL [facility] 74-99 platelet count 255 10*3/mm3 [facility] hematocrit, blood 42.1 % [facility] international normalized ratio (INR) 1.0 [facility] D-dimer quantitative mcg/mL 372 ug/mL [facility] alanine aminotransferase (SGPT), serum 52 1/L [facility] aspartate aminotransferase (SGOT), serum 25 1/L [facility] creatinine, serum 1.07 mg/dL [facility] potassium, serum 3.2 mmol/L [facility] sodium, serum 139 mmol/L [facility] HISTORY OF MEDICATION USE Medication Status Instructions [...] every 4-6 hours NEEDED 07/17 - 07/27 [facility] VU METFORMIN HCL 500 MG [...] completed once daily - 02/19 Krystian Taylor CYMBALTA 20 MG ORAL CAPSULE DELAYED RELEASE PARTICLES active 1 tab daily 07/26 Esteban [place] HYDROCODONE-ACETAMI NOPHEN 7.5-650 MG ORAL TABLET completed [...] yes Chastity Kelli smoking status [facility] [place] e social history E&M Marital Statu s: L shoaib with family/friends E thnicity: Smoking History: Naren ames has never smoked. Cameron Ramírez MD social history reviewed E&M revi ewed - no changes required Cameron Ramírez MD physical exercise, f requency, days per week no Jocelyn Block alcohol use, average drinks per day none [employer] alcohol use no Jocelyn Block caffeine use, averag e drinks per day yes [employer] drug use none [employer] passive cigarette sm rodríguez exposure yes [employer] smoking status Never smoker [facility] social history E&M Marital Statu s: L shoaib with family/friends E thnicity: Smoking History: Naren ames has never smoked. Abelino Ny MD social history reviewed E&M revi ewed - no changes required Abelino Ny MD physical exercise, f requency, days per week no Goleta Gonzalez alcohol use, average drinks per day none Goleta Gonzalez alcohol use no Esteban Gonzalez caffeine use, averag e drinks per day yes Goleta Gonzalez drug use none Esteban Gonzalez passive cigarette sm rodríguez exposure [facility] Never smoker [facility] social history reviewed E&M revi ewed - [...] Payer name Policy type / Coverage type [place] [employer] party ID [employer] [id number] HEALTHCARE AND FAMILY SERVICES Medicaid 0 [id number] ADVANCE DIRECTIVES Name Date DISCUSSED - NO [...] opted to wait and meet with a supervisor estimator and drafter prior to undergoing any further testing. Abelino Ny MD Cardiology:Blood pressure contro l is satisfactory. Abelino Ny MD Cardiology:Resolved. Abelino yoon MD Cardiology:Weight loss advised. Abelino Ny MD Cardiology Cameron Ramírez MD Cardiology Cameron Ramírez MD Cardiology Cameron Ramíerz MD Cardiology Cameron Ramírez MD Cardiology Cameron Ramírez MD Cardiology:No recurrence. Allison Ny MD Cardiology:Her blood pressure has remained within normal range and she is off the metoprolol and lisinopril. Abelino Ny MD Cardiology:Weight loss of 135lbs s/p revision. [...] She continues to follow Bariatric Surgery at [facility]. She continues to follow them and there [...] up: O rders: S TR - Adenosine (44002) C omplete Echo (CPT-55930) Abelino Ny MD follow up: O rders: S TR - Adenosine (56699) C omplete Echo (CPT-52940) Abelino Ny MD follow up: H er updated medication list for this problem includes: Metoprolol Tartrate Tabs (Metoprolol tartrate tabs) ..... 1 tab twice Orders: S TR - Adenosine (25440) C omplete Echo (CPT-60700) Abelino Ny MD follow up: O rders: S TR - Adenosine (15248) C omplete Echo (CPT-50726) Abelino Ny MD follow up: H er updated medication list for this problem includes: Metoprolol Tartrate Tabs (Metoprolol tartrate tabs) ..... 1 tab twice Orders: S TR - Adenosine (69301) C omplete Echo (CPT-20904) Abelino Ny MD follow up: H er updated medication list for this problem includes: Nitrostat 0.4 Mg Subl (Nitroglycerin) ..... One tab. under tongue as needed. may repeat twice in 10 minutes. Metoprolol Tartrate Tabs (Metoprolol tartrate tabs) ..... 1 tab twice Orders: E KG (CPT-45866) S TR - Adenosine (68784) C omplete Echo (CPT-85119) Abelino Ny MD office visit: T he [...] clearanc e for lap band surgery in [place], [place]. will order an adenosine myoview and [...] EKG Abelino Ny MD complet ed SNOMED-CT: 751252419 [id number] Current Medications Documented Abelino Ny MD completed SNOMED-CT: 281316430 Smoking Cessation Counseling Abelino Ny MD completed SNOMED-CT: 44583427 Physical Exam, Performed: Pulse Exam of Foot Abelino Ny MD completed EKG Abelino Ny MD complet ed SNOMED-CT: 597774582 728473 Current Medications Documented Abelino Ny MD completed EKGalen Ny MD complet ed EKG Abelino Ny MD complet ed EKGalen Ny MD complet ed ePrescribe - Check t his box if eRx is used Abelino Ny MD completed EKG Abelino Ny MD complet ed EKG Abelino Ny MD complet ed EKGalen Ny MD complet ed
== END 2024-08-10 11:21 | disposition home or self-care (01) ==
PROVIDERS: PCP Internal Medicine; Visit Provider Clinical Nurse Specialist
DX: R94.6 Abnormal results of thyroid function studies (principal); R79.89 Other specified abnormal findings of blood chemistry; R74.01 Elevation of levels of liver transaminase levels
CPT/HCPCS: 36415; 80053; 84443

== ENCOUNTER 2024-10-11 18:01 | Emergency (ER) | payer MEDICARE, MEDICAID, SELFPAY ==
--- OUTSIDE RECORDS SUMMARY | 2024-10-11 18:03 | XMS_ITS | Clinical Summary ---
Author Organization 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 Name Role Phone Unavailable Primary Care Provider [...] 2019 COVID-19 Vaccine (2023-2 5 season) 2024 HPV Vaccines Aged Out No longer eligi ble based on patient's age to complete this topic Meningococcal B Vaccine Aged Out No l onger eligible based on patient's age to complete this topic Meningococcal Vaccine Aged Out No ramiro suzanne eligible based on patient's age to complete this topic Pneumococcal Vaccine: Pediat rics (0 to 5 Years) and At-Risk Patients (6 to 49 Years) Aged Out No longer eligible b ased on patient's age to complete this topic RSV Immunizations Under 20 Months Aged Out No longer eligible based on patient's age to complete this topic
--- OUTSIDE RECORDS SUMMARY | 2024-10-11 18:03 | XMS_ITS | Encounter Summary ---
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
--- OUTSIDE RECORDS SUMMARY | 2024-10-11 18:03 | XMS_ITS | Clinical Summary ---
Author Organization [facility] Address [address] [place] [address] Care Team Providers Care Fixed Wing Aircraft Flight Engineer Name Role Phone Henry Ruiz DO Primary Care Provider [phone] Source Comments [facility],non-owned Affiliates and Associated Physician Practices is amultiple site organization consisting of ambulatory clinics and hospital sitesin [place], [place], [place] and [place]. This disclosure is being madepursuant to the Care Everywhere program and may not contain all information available regarding this patient. Last updated 18.[facility] Allergies Active Allergy Reactions Criticality Noted Date Comments Morphine Nausea and/or Vomiting,Headache 05/23/2022 Nsaids GI Discomfort High 02/02/2018 Had gastric bypass and can't take oral But can take IV Medications * Be aware that medications may not be up to date on this document. Alwaysverify current medications with the patient. cyclobenzaprine (FLEXERIL) 10 MG tablet Take 1 (one) tablet by mouth every 8 hours as needed 1 Active erenumab-aooe (AIMOVIG) 70 MG/ML auto injector pen Inject 1 mL subcutaneously every 30 days Active nitroGLYCERIN (NITROSTAT) 0.4 MG tablet Dissolve 1 (one) tablet under the tongue every 5 minutes as needed for Angina 07/19/19 22 Active Additional Information Patient not taking.Reported on 12/14/2023 Probiotic Product (PROBIOTIC & ACIDOPHILUS EX ST) CAPS Take 1 capsule by mouth once daily 07/19/19 22 Active atorvastatin (LIPITOR) 40 MG tablet Take 1 (one) tablet by mouth at bedtime 07/19/19 22 Active hydrOXYzine HCl (ATARAX) 10 MG tablet Take 1 (one) tablet by mouth 2 times daily as needed for Itching Active butalbital-aceta minophen-caffein e (FIORICET) 50-325-40 MG tablet Take 1 (one) tablet by mouth every 8 hours as needed Active linaCLOtide (LINZESS) 145 MCG capsuleIndicatio ns:Chronic constipation Take 1 (one) capsule by mouth daily before breakfast Take on an empty stomach at least 30 minutes prior to first meal of the day. 90 capsule 3 11/15/19 22 Active Cyanocobalamin (VITAMIN B-12 PO) Take 1 tablet by mouth once daily Active DULoxetine (Cymbalta) 20 MG capsule Take 1 (one) capsule by mouth once daily Take with 60mg capsule to equal 80mg daily 04/09/20 22 Active DULoxetine (Cymbalta) 60 MG capsule Take 1 (one) capsule by mouth once daily Take with 20mg capsule to equal 80mg daily Active lisinopril (Prinivil; Zestril) 5 MG tablet Take 1 (one) tablet by mouth once daily 03/17/20 22 Active nystatin (Mycostatin) 861482 UNIT/GM cream Apply to affected area 2 times daily underneath breast folds Active albuterol HFA (Proventil; Ventolin; Proair) 108 (90 Base) MCG/ACT inhaler Inhale 1 (one) puff by mouth every 4 hours as needed for Wheezing or Shortness of Breath Active Biotin 1000 MCG Take 1 (one) tablet by mouth once daily Active oxyCODONE-acetam inophen (Percocet) 10-325 MG tablet TAKE 1 TABLET BY MOUTH TWICE DAILY NEEDED FOR 30 DAYS 08/28/19 23 Active Ferrous Sulfate (IRON PO) Take 10 mg by mouth once daily Active ascorbic acid (Vitamin C) 125 MG TABS half tablet Take by mouth once daily Active Mounjaro 7.5 MG/0.5ML injection Inject 12.5 mg subcutaneously every 7 days 12/02/19 24 Active metoclopramide (Reglan) 10 MG tablet TAKE 1 TABLET BY MOUTH THREE TIMES DAILY BEFORE MEALS 90 tablet 02/02/20 24 Active dexlansoprazole (Dexilant) 30 MG capsule TAKE 1 CAPSULE BY MOUTH EVERY DAY 90 capsule 08/26/19 25 Active erythromycin (Romycin) 5 MG/GM ophthalmic ointment APPLY 1 THIN LAYER ON THE EYE EVERY NIGHT AT BEDTIME. APPLY 1 STRIP OF OINTMENT TO BOTH UPPER EYELIDS EVERY NIGHT AT HOME 08/04/19 24 Active ferrous sulfate EC (Ferrous Sulfate) 324 (65 Fe) MG tablet Take 65 mg by mouth once daily Active Menaquinone-7 (Vitamin K2) 100 MCG Take 1 tablet by mouth once daily Active Lactobacillus Acid-Pectin (Acidophilus/Pec tin) capsule Take 1 (one) capsule by mouth once daily Active pantoprazole EC (Protonix) 40 MG tablet Take 1 (one) tablet by mouth 05/15/20 23 Active Vitamin E (Vitamin E/D-Alpha Natural) 268 MG (400 UNIT) capsule Take 1 (one) capsule by mouth Active Active Problems Problem Noted Date Diagnosed [...] Encounters Date Type Department Care Team Description 08/30/2024 11:15 AM DIE STAMPING PRESS OPERATOR Office Visit [facility] - Neurosurgery [address], [place] [address] Nicholas Peacock MD Cerebral aneurysm (Primary Dx) 08/30/2024 9:25 AM DIE STAMPING PRESS OPERATOR - 08/30/2024 11:59 PM DIE STAMPING PRESS OPERATOR Hospital Encounter [facility] CAT SCAN [address] [place] [address] Nicholas Peacock MD Discharge Disposition: Home or Self Care 08/30/2024 Travel 08/26/2024 Refill [facility] [address], [address] [place] [address] Hortensia Covington, VETERANS ADVISER-RAILROAD SIGNAL AND SWITCH OPERATOR Refill Request from Last 3 Months Family [...] Never Smokeless Tobacco: Never Tobacco Cessation:Counseling Given: No Alcohol Use Standard Drinks/Week Comments No 0 [...] money to get more. Never true 05/23/2022 Comments No Sex and Gender Information Value Date Recorded Sex Assigned at Not on file Legal Sex Female 12:37 PM DIE STAMPING PRESS OPERATOR Gender Identity Not on file Sexual Orientation Not on file Occupation Industry Job Start Date Job End Date DISABLED Not on file Not on file Not on file Last Filed Vital Signs Vital Sign Reading Time Taken Comments Blood Pressure 110/71 08/30/2024 11:35 AM DIE STAMPING PRESS OPERATOR Pulse 73 08/30/2024 11:35 AM DIE STAMPING PRESS OPERATOR Temperature 36.8 C (98.2 F) 08/30/2024 11:35 AM DIE STAMPING PRESS OPERATOR Respiratory Rate 14 12/14/2023 8:20 AM CDT Oxygen Saturation 98% 08/30/2024 11:35 AM DIE STAMPING PRESS OPERATOR Inhaled Oxygen Concentration - - Weight 70.8 kg (156 lb) 08/30/2024 11:35 AM DIE STAMPING PRESS OPERATOR Height 167.6 cm (5' 6 ) 08/30/2024 11:35 AM DIE STAMPING PRESS OPERATOR Body Mass Index 25.18 08/30/2024 11:35 AM DIE STAMPING PRESS OPERATOR Plan of Treatment Upcoming Encounters Date Type Department Care Team (Late st Contact Info) Description 05/04/2025 11:00 AM DIE STAMPING PRESS OPERATOR Office Visit [facility] [address] [place] [address] Blanca Kamara, VETERANS ADVISER-RAILROAD SIGNAL AND SWITCH OPERATOR [address] [place] [address] Health Maintenance Due Date Last Done Comments MAMMOGRAM 1979 HIV SCREENING 11/27/1994 DTAP/TDAP/TD VACCINES (1 - Tdap) 11/27/1998 HEPATITIS B VACCINE (1 of 3 - 19+ 3-dose series) 11/27/1998 PNEUMOCOCCAL VACCINE (1 of 2 - PCV) 11/27/1998 DIABETES-FOOT EXAM WITH MONOFILAMENT 09/02/2022 DIABETES-HGB A1C 09/02/2022 COVID-19 VACCINE ( - season) 2024 DIABETES RETINOPATHY SCREENING 03/10/2024 03/10/2022, 08/27/2021 DEPRESSION SCREENING 06/29/2024 11/14/2021 DIABETES - URINE PROTEIN SCREENING 06/29/2024 MEDICARE AWV CALENDAR YEAR 2024 INFLUENZA VACCINE (Season Ended) 2025 DIABETES-SERUM CREATININE 08/30/20252024, 06/03/2024, 09/01/2023, Additional history exists ZOSTER VACCINE (1 of 2) 11/27/2029 HEPATITIS C SCREENING Completed 05/17/2021 HIB VACCINE Aged Out No longer eligi ble based on patient's age to complete this topic HPV VACCINE Aged Out No longer eligi ble based on patient's age to complete this topic MENINGOCOCCAL (Group B) VACCINE SHARED DECISION-MAKING Aged Out No longer eligible based on patient's age to complete this topic MENINGOCOCCAL GROUPS A/C/Y/W VACCINE Aged Out No longer eligible based [...] last dose Medical Devices Implanted Type Area Online Advertising Director Device Identifier Shelf Expiration Date Model / Serial / Lot Set Xtrn Drn 35cm 1.9mm 3-15cm Cath Inr Implanted:Qty: 1 on 07/08/2021 by Nicholas Peacock MD at [facility] N/A: Cranial [employer] 02/26/2022 82-1750 / / [id number] Sugita Titanium Aneurysm Clip Implanted:Qty: 1 on 07/08/2021 by Nicholas Peacock MD at [facility] Right: [facility] 17-001-33 / [id number] / 101-SD Sugita Titanium Aneurysm Clip Implanted:Qty: 1 on 07/08/2021 by Nicholas Peacock MD at [facility] Right: [facility]ranial [facility] 17-001-87 / 38-TK / [id number] Graft Tissue Drgn + Bvn Clgn Mtrx 5x4in Implanted:Qty: 1 on 07/08/2021 by Nicholas Peacock MD at [facility] N/A: Cranial [employer] 01/27/2024 [id number] / / [id number] Plate 2 Hl Lopro Crnmxf 15mm Str Lucio Implanted:Qty: 2 on 07/08/2021 by Nicholas Peacock MD at [facility] N/A: Cranial [employer] 19-1005 / / Plate 4 Hl Lopro Crnmxf 22mm Lng Str Implanted:Qty: 1 on 07/08/2021 by Nicholas Peacock MD at [facility] N/A: Cranial [employer] -1045 / / Cover Bur Hl 13.5mm Spne Bnt Implanted:Qty: 2 on 07/08/2021 by Nicholas Peacock MD at [facility] N/A: Cranial [employer] 19-1019 / / Screw 1.5mm 4mm Slf Drl Xdr Crnmxf Implanted:Qty: 12 on 07/08/2021 by Nicholas Peacock MD at [facility] N/A: Cranial [employer] 91-6704 / / Explanted Type Area Online Advertising Director Device Identifier Shelf Expiration Date Model / Serial / Lot Cover Bur Hl 13.5mm Spne Bnt Explanted:Qty: 1 on 07/08/2021 by Nicholas Peacock MD at [facility] N/A: Cranial [employer] 19-1019 / / Screw 1.5mm 4mm Slf Drl Xdr Crnmxf Explanted:Qty: 1 on 07/08/2021 by Nicholas Peacock MD at [facility] N/A: Cranial [employer] 91-6704 / / Sugita Titanium Aneurysm Clip Explanted:Qty: 1 on 07/08/2021 by Nicholas Peacock MD at [facility] Right: Cranial Abundio Stephenson 17-006-27 / [id number] / 24-TK Procedures Procedure Name Priority Date/Time Associated Diagnosis Comments CT ANGIO BRAIN Routine 08/30/2024 9:45 AM DIE STAMPING PRESS OPERATOR Cerebral aneurysm CREATININE - POCT INTERFACED Routine 08/30/2024 9:32 AM DIE STAMPING PRESS OPERATOR EYE EXAM 03/10/2022 HEPATITIS C ANTIBODY Routine 05/17/2021 10:52 AM DIE STAMPING PRESS OPERATOR Abnormal LFTs from Last 3 Months or Most Recently Relevant to Health Maintenance Results * CT ANGIO BRAIN (08/30/2024 9:45 AM DIE STAMPING PRESS OPERATOR) Anatomical Region Laterality Modality Head Computed Tomogra phy 08/30/2024 1:29 PM DIE STAMPING PRESS OPERATOR Impressions 08/30/2024 1:43 PM DIE STAMPING PRESS OPERATOR IMPRESSION: 1. No acute intracranial hemorrhage. Redemonstration of postoperative changes. 2. Accounting for the beam hardening and streak artifacts from the aneurysm clips, no evidence of a recurrent aneurysm in the right posterior cerebral artery. > Interpreting Provider: Sergo Ernst MD on 08/30/2024 1:43 PM Narrative 08/30/2024 1:43 PM DIE STAMPING PRESS OPERATOR PROCEDURE: CT ANGIO BRAIN, DATE/TIME OF EXAM: 08/30/2024 9:48 AM, LOCATION [facility] INDICATION: I67.1: Cerebral aneurysm (HCC) ADDITIONAL CLINICAL INFORMATION: Ordering Provider Reason For [...] sent to the workstation for review. COMPARISON: 09/01/2023. 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 An area of encephalomalacia is again noted [...] identified. Procedure Note Sergo Ernst MD - 08/30/2024 PROCEDURE: CT ANGIO BRAIN, DATE/TIME OF EXAM: 08/30/2024 9:48 AM, LOCATION [facility] INDICATION: I67.1: Cerebral aneurysm (HCC) ADDITIONAL CLINICAL INFORMATION: Ordering Provider Reason For [...] sent to the workstation for review. COMPARISON: 09/01/2023. 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 An area of encephalomalacia is again noted in the inferior anterior right temporal lobe. A small focus of hyperattenuationis seen in the region of the right [...] > Interpreting Provider: Sergo Ernst MD on 08/30/2024 1:43 PM us Nicholas Peacock MD CT ORDERABLES Final Result * CREATININE - POCT INTERFACED (08/30/2024 9:32 AM DIE STAMPING PRESS OPERATOR) Pathologist [facility] Creatinine POCT 0.58 0.30 - 1.30 mg/dL 08/30/2024 9:33 AM [facility] eGFR >90 >=90 mL/min/1.7 3 m2 08/30/2024 9:33 AM [facility] Blood BLOOD SPECIMEN / Unknown 08/30/2024 9:32 AM DIE STAMPING PRESS OPERATOR 08/30/2024 9:33 AM DIE STAMPING PRESS OPERATOR us Nicholas Peacock MD LAB - POINT OF CARE ORDERABL ES Final Result Performing Organization Address City/State/[facility] Co de Phone Number [address] [address], [facility] [phone] * EYE EXAM (03/10/2022) Anatomical Region Laterality Modality Other Narrative 03/10/2022 Ordered by an unspecified provider. us Scanned Document SCANNING ONLY Final Result * HEPATITIS C ANTIBODY (05/17/2021 10:52 AM DIE STAMPING PRESS OPERATOR) Pathologist [facility] Hepatitis C Antibody Non-react curtis Non-reac tive 05/17/2021 12:48 PM DIE STAMPING PRESS OPERATOR [facility] Comment:Hepatitis C Antibody screen indicates no serologic evidence of past or current infection with Hepatitis C Virus. Patients with unexplained liver disease who are immunocompromised or suspected of having acute Hepatitis C infection may benefit from Nucleic Acid Test (MELL) for Hepatitis C Viral RNA to confirm Hepatitis C status. Blood BLOOD SPECIMEN / Unknown Lab Venipuncture / Unknown 05/17/2021 10:52 AM DIE STAMPING PRESS OPERATOR 05/17/2021 11:49 AM DIE STAMPING PRESS OPERATOR Ori Zarco MD LAB - CHEMISTRY YOLANDE FRAGA Final Result [facility] [address] [place] [address], [facility] [phone] from Last 3 Months or Most Recently Relevant to Health Maintenance Insurance MEDICAID - [place] [employer] MANAGED MEDICARE ADV MEDICAID [facility] Advance Directives * Full Code (Latest Code [...] 10:55 AM 12/02/2015 1:56 PM Care Teams Fixed Wing Aircraft Flight Engineer Relationship Specialty Start Date End Date Henry Ruiz DO PCP - General Internal Medicine 10/12/15
--- OUTSIDE RECORDS SUMMARY | 2024-10-11 18:03 | XMS_ITS | Encounter Summary ---
Author Organization [facility] Address [address] [place] [address] Care Team Providers Care Hop Picker Name Role Phone Henry Ruiz DO Primary Care Provider [phone] Reason for Visit * Reason Onset Date [...] 02/26/2024 Telephone [facility] - Neurosurgery [address] [place] [address], [place] [id number] Nicholas Peacock MD [address] [place] [address] [place] [address] ABN Follow-Up (Pt called in c/o a [...] on file Legal Sex Female 12:37 PM HORTICULTURAL SPECIALTY GROWER Gender Identity Not on file Sexual Orientation Not on file Occupation Industry Job Start Date Job End Date DISABLED Not on file Not on file Not on file documented as of this encounter Functional Status * Is person deaf or have serious hearing difficulty? Answer Date of Assessment Author No 05/24/2022 9:07 AM Marta Oakes RN * Is person blind or have serious difficulty seeing? Answer Date of Assessment Author No 05/24/2022 9:07 AM Marta Oakes RN * Does person have serious difficulty walking/climbing stairs? Answer Date of Assessment Author No 05/24/2022 9:07 AM Marta Oakes RN * Does person have difficulty dressing/bathing? Answer Date of Assessment Author No 05/24/2022 9:07 AM Marta Oakes RN * Does person have difficulty doing errands alone? Answer Date of Assessment Author No 05/24/2022 9:07 AM Marta Oakes RN documented as of this encounter Mental Status * Does person have difficulty concentrating/remembering/making decisions? Answer Entry Date Author No 05/24/2022 9:07 AM Marta Oakes RN documented in this encounter Miscellaneous Notes * Telephone Encounter [...] st Contact Info) Description 05/04/2025 11:00 AM HORTICULTURAL SPECIALTY GROWER Office Visit [facility] [address] [place] [address] Blanca Kamara, BRANCH RENTAL MANAGER-SALES CENTER MANAGER [address] [facility] [address] [place] [address] documented as of this encounter Goals Goal [...] on filedocumented in this encounter Care Teams Hop Picker Relationship Specialty Start Date End Date Henry Ruiz DO PCP - General Internal Medicine 10/12/15 documented as of this encounter
--- OUTSIDE RECORDS SUMMARY | 2024-10-11 18:04 | XMS_ITS | CONTINUITY OF CARE DOCUMENT ---
Author Name priscila, priscila Address Unknown Organization [facility] Address [address] [place] [address] Phone [phone] Care Team Providers Care Enterprise Engineer Name Role Phone Abelino Ny MD Unavailable WILLIAM MELENDEZ DO Unavailable [phone] WILLIAM MELENDEZ DO Unavailable [phone] PROBLEMS Condition Status Date Provider Notes HTN-02/06 [...] In-person encounter Office Visit Abelino Ny MD [facility] CHEST PAIN-04/2014 NUC NEG EF60% - 02/03 NUC ISCHEMIACHOLECYSTECTOM Y, HX OF MAY 2010GERD - In-person encounter Office Visit Abelino Ny MD [facility] Bilateral leg Edema - In-person encounter Office Visit Cameron Ramírez MD [facility] - In-person encounter Office Visit Abelino Ny MD [facility] OBESITY- s/p lap band revision - In-person encounter Office Visit Abelino Ny MD [facility] - In-person encounter Office Visit Abelino Ny MD [facility] OBESITY- s/p lap band revision - In-person encounter Office Visit Abelino Ny MD [facility] Family History of Hypertension: - In-person encounter Office Visit Abelino Ny MD [facility] - In-person encounter Office Visit Abelino Ny MD [facility] - In-person encounter Office Visit Abelino Ny MD [facility] PE, HX OFPREOPERATIVE CARDIOVASCULAR EXAMINATIONCAD-02/03 CATH NO CADDVT-09/07 SHIV DOP NEG - In-person encounter Office Visit Abelino Ny MD [facility] OBESITY- s/p lap band revision - In-person encounter Office Visit Abelino Ny MD [facility] - In-person encounter Office Visit Abelino Ny MD [facility] - In-person encounter Office Visit Abelino Ny MD [facility] POLYCYSTIC OVARIAN DISEASE REMOVED MAY 2010 - In-person encounter Office Visit Abelino Ny MD [facility] - In-person encounter Office Visit Abelino Ny MD [facility] - In-person encounter Office Visit Abelino Ny MD [facility] HTN-02/06 ECHO EF 60-06/04 ECHO EF 60CHEST PAIN-04/2014 NUC NEG EF60% - 02/03 NUC ISCHEMIA - In-person encounter Office Visit Gary Angeles MD [facility] VITAL SIGNS Date Observation Value Provider Body Mass Index (Ratio) 35.77 kg/m2 Manjeet Carcamote blood pressure, diastolic 70 mm[Hg] Kr isty Jackson blood pressure, systolic 110 mm[Hg] Kri sty Leonela oxygen saturation, oximetry 98 % Kena Leonela respiratory rate E&M 17 /min Kena Jackson pulse rate 82 /min Kena Jackson blood pressure, cuff size regular Kr alexandra Leonela weight E&M 215 [lb_av] Kena Jackson height E&M 65 [in_i] Kena Leonela Body Mass Index (Ratio) 33.11 kg/m2 Scottie Ny MD oxygen saturation, oximetry 99 % [facility] 83 /min [facility] blood pressure, diastolic 70 mm[Hg] [...] MD blood pressure, diastolic 80 mm[Hg] [facility], systolic 110 mm[Hg] Kil sergio Badin oxygen saturation, oximetry 98 % [facility] respiratory rate E&M 16 /min [facility] 81 /min [facility] weight E&M 189 [lb_av] [facility] height E&M 65 [in_i] [facility] Body Mass Index (Ratio) 44.59 kg/m2 Scottie Ny MD blood pressure, cuff size large Ke rri Conchis blood pressure, diastolic 84 mm[Hg] Ke rri Conchis blood pressure, systolic 132 mm[Hg] Maura Balderrama oxygen saturation, oximetry 99 % Bebe Balderrama respiratory rate E&M 18 /min Bebe patel pulse rate 78 /min Bebe Arun [facility] weight E&M 268 [lb_av] Bebe Arun [facility] height E&M 65 [in_i] Bebe Arun [...] Shan hawa Taylor pulse rate 95 /min [facility] saturation, oximetry 98 % [facility] respiratory rate E&M 16 /min [facility] weight E&M 262.25 [lb_av] Krystian [...] patel weight E&M 281 [lb_av] Bebe Dias [facility] height E&M 65 [in_i] Bebe [facility]cy [facility] blood pressure, diastolic, left arm 110 m m[Hg] Shanhawa Taylor blood pressure, systolic, left arm 159 mm [Hg] Shanhawa Taylor blood pressure, diastolic, right arm 137 mm[Hg] Shanhawa Taylor blood pressure, systolic, right arm 170 m m[Hg] Shanhawa Taylor blood pressure, diastolic 110 mm[Hg] Fleming Taylor blood pressure, systolic 159 mm[Hg] Shan de la cruz Taylor pulse rate 99 /min [facility] oxygen saturation, oximetry 96 % [facility] respiratory rate E&M 18 /min [facility] weight E&M 286 [lb_av] Shanhawa Taylor blood pressure, diastolic 95 mm[Hg] Fleming Taylor blood pressure, systolic 140 mm[Hg] Shan de la cruz Taylor pulse rate 85 /min [facility] oxygen saturation, oximetry 99 % [facility] respiratory rate E&M 16 /min [facility] weight E&M 272 [lb_av] Shanhawa Taylor blood pressure, diastolic, left arm 80 mm [Hg] Shanyehawa Taylor blood pressure, systolic, left arm 120 mm [Hg] [facility] blood pressure, diastolic, right arm 88 m m[Hg] Shanhawa Taylor blood pressure, systolic, right arm 123 m m[Hg] [facility] oxygen saturation, oximetry 99 % [facility] blood pressure, diastolic 98 mm[Hg] Pimenteleadestiney Taylor [...] [employer] 3.5-5.1 sodium, serum 141 mmol/L [employer] 010-148 9553/09/ 28 creatinine, serum 0.7 mg/dL [employer] 0.5-0.9 carbon dioxide, venous blood 28 mmol/L [employer] 22-29 albumin, serum 4.7 g/dL [employer] 3.5-5.2 calcium, serum 9.7 mg/dL [employer] 8.6-10.2 aspartate aminotransferase (SGOT), serum 25 1/L [employer] 0-32 alkaline phosphatase, serum 85 1/L [employer] 40-130 alanine aminotransferase (SGPT), serum 27 1/L [employer] 0-33 protein, total, serum 7.8 g/dL [facility] 6.6-8.7 bilirubin, serum, total 0.3 mg/dL [facility] 0.0-1.2 urea nitrogen, blood 14 mg/dL [facility] 6-20 blood glucose, random 94 mg/dL [facility] 74-99 platelet count 255 10*3/mm3 [facility] hematocrit, blood 42.1 % [facility] international normalized ratio (INR) 1.0 [facility] D-dimer quantitative mcg/mL 372 ug/mL [facility] alanine aminotransferase (SGPT), serum 52 1/L [facility] aspartate aminotransferase (SGOT), serum 25 1/L [facility] creatinine, serum 1.07 mg/dL [facility] potassium, serum 3.2 mmol/L [facility] sodium, serum 139 mmol/L [facility] HISTORY OF MEDICATION USE Medication Status Instructions [...] every 4-6 hours NEEDED 07/17 - 07/27 [facility] VU METFORMIN HCL 500 MG [...] PARTICLES active 1 tab daily 07/26 Esteban Badin HYDROCODONE-ACETAMI NOPHEN 7.5-650 MG ORAL TABLET completed [...] social history E&M Marital Statu s: L sohaib with family/friends E thnicity: Smoking History: P [...] yes Chastity Kelli smoking status [facility] social history E&M Marital Statu s: L shoaib with family/friends E thnicity: Smoking History: Naren ames has never smoked. Cameron Ramírez MD social history reviewed E&M revi ewed - no changes required Cameron Ramírez MD physical exercise, f requency, days per week no Jocelyn Block alcohol use, average drinks per day none [facility] alcohol use no Jocelyn Block caffeine use, averag e drinks per day yes [facility] drug use none [facility] passive cigarette sm rodríguez exposure yes [facility] smoking status Never smoker [facility] social history E&M Marital Statu s: L shoaib with family/friends E thnicity: Smoking History: Naren ames has never smoked. Abelino Ny MD social history reviewed E&M revi ewed - no changes required Abelino Ny MD physical exercise, f requency, days per week no Esteban Gonzalez alcohol use, average drinks per day none Belton Gonzalez alcohol use no Belton Gonzalez caffeine use, averag e drinks per day yes Esteban Gonzalez drug use none Esteban Gonzalez passive cigarette sm rodríguez exposure [facility] Never smoker [facility] social history reviewed E&M revi ewed [...] Payer name Policy type / Coverage type Inez red republican ID Home-Account O [id number] HEALTHCARE AND FAMILY SERVICES Medicaid 0 [id number] ADVANCE DIRECTIVES Name Date DISCUSSED - NO [...] opted to wait and meet with a roustabout supervisor prior to undergoing any further testing. Abelino [...] She continues to follow Bariatric Surgery at [facility]. She continues to follow them and there [...] up: O rders: S TR - Adenosine (59212) C omplete Echo (CPT-20500) Abelino Ny MD follow up: O rders: S TR - Adenosine (78446) C omplete Echo (CPT-53972) Abelino Ny MD follow up: H er updated medication list for this problem includes: Metoprolol Tartrate Tabs (Metoprolol tartrate tabs) ..... 1 tab twice Orders: S TR - Adenosine (16026) C omplete Echo (CPT-00448) Abelino Ny MD follow up: O rders: S TR - Adenosine (92586) C omplete Echo (CPT-44625) Abelino Ny MD follow up: H er updated medication list for this problem includes: Metoprolol Tartrate Tabs (Metoprolol tartrate tabs) ..... 1 tab twice Orders: S TR - Adenosine (53180) C omplete Echo (CPT-14199) Abelino Ny MD follow up: H er updated medication list for this problem includes: Nitrostat 0.4 Mg Subl (Nitroglycerin) ..... One tab. under tongue as needed. may repeat twice in 10 minutes. Metoprolol Tartrate Tabs (Metoprolol tartrate tabs) ..... 1 tab twice Orders: E KG (CPT-59570) S TR - Adenosine (23302) C omplete Echo (CPT-07709) Abelino Ny MD office visit: T he [...] clearanc e for lap band surgery in [place], [place]. will order an adenosine myoview and [...] EKG Abelino Ny MD complet ed SNOMED-CT: 106305469 074234 Current Medications Documented Abelino Ny MD completed SNOMED-CT: 553283654 Smoking Cessation Counseling Abelino Ny MD completed SNOMED-CT: 71919036 Physical Exam, Performed: Pulse Exam of Foot Abelino Ny MD completed EKG Abelino Ny MD complet ed SNOMED-CT: 778770689 075432 Current Medications Documented Abelino Ny MD completed EKGalen Ny MD complet ed EKG Abelino Ny MD complet ed EKGalen Ny MD complet ed ePrescribe - Check t his box if eRx is used Abelino Ny MD completed EKG Abelino Ny MD complet ed EKG Abelino Ny MD complet ed EKGalen Ny MD complet ed
--- OUTSIDE RECORDS SUMMARY | 2024-10-11 18:04 | XMS_ITS | Clinical Summary ---
Author Organization [facility] Address [address] [place] [id number] Care Team Providers Care Door To Door Salesperson Name Role Phone Henry Ruiz DO Primary Care Provider [phone] Nicholas Peacock MD Unavailable Lolita Colon MD Unavailable [phone] Allergies Active Allergy Reactions Criticality Noted Date Comments Morphine Itching Low 12/13/2022 Nsaids (Non-Steroidal Anti-Inflammatory Drug) Other (See comments) Low 02/15/2024 Contraindicated, gastric bypass Medications atorvastatin (LIPITOR) 40 mg tablet 1 tablet BEDTIME (route: oral) 2 Active linaCLOtide (Linzess) 145 mcg capsule 1 Active lisinopriL (PRINIVIL,ZESTRIL) 5 mg tablet 3 tablet DAILY (route: oral) 2 Active butalbital-acetami nophen-caffeine (ESGIC) 50-325-40 mg per tablet 2 Active dexlansoprazole (DEXILANT) 30 mg capsule Take 1 capsule (30 mg total) by mouth daily 2 Active hydrOXYzine (ATARAX) 10 mg tablet 2 Active lidocaine (LIDODERM) 5 % Place 1 patch on the skin daily for 14 days Remove & discard patch within 12 hours or as directed by . 14 patch 3 Active cyclobenzaprine (FLEXERIL) 10 mg tablet Take 1 tablet (10 mg total) by mouth 2 (two) times a day as needed [address] (CYMBALTA) 60 mg capsule Take 1 capsule (60 mg total) by mouth daily [address] (PROTONIX) 40 mg EC tablet Take 1 tablet (40 mg total) by mouth nightly at bedtime 4 Active Aimovig Autoinjector 140 mg/mL auto-injector ADMINISTER 1 ML UNDER THE SKIN MONTHLY [address] (CYMBALTA) 20 mg capsule Take 1 capsule (20 mg total) by mouth daily 4 Active ELDERBERRY FRUIT ORAL Take 50 mg by mouth daily Active multivit-min/iron/ folic acid/K (BARIATRIC MULTIVITAMINS ORAL) Take 1 tablet by mouth daily Active ferrous sulfate ER 324 mg (65 mg iron) EC tabletIndications: Iron Deficiency Anemia Take 65 mg by mouth daily with breakfast Active vitamin K2 100 mcg capsule Take 1 tablet by mouth daily Active vitamin E 400 unit capsule Take 1 capsule (400 Units total) by mouth Active ascorbic acid (ascorbic acid with héctor hips) 500 mg tablet,chewable Take 1 tablet/chew tab (500 mg total) by mouth daily Active acidophilus-pectin , citrus 100 million cell-10 mg capsule Take 1 capsule by mouth daily Active calcium citrate-vitamin D3 (CITRACAL WITH D) 315 mg-6.25 mcg (250 unit) per tablet Take 1 tablet by mouth 3 (three) times a day with meals Active ondansetron ODT (ZOFRAN-ODT) 8 mg disintegrating tabletIndications: Prevention of Post-Operative Nausea and Vomiting Take 1 tablet (8 mg total) by mouth every 8 (eight) hours as needed for nausea or vomiting 12 tablet 1 4 Active HYDROcodone-acetam inophen (NORCO) 5-325 mg per tabletIndications: Pain Take 1 tablet by mouth every 6 (six) hours as needed for pain 20 tablet 4 Active oxyCODONE-acetamin ophen (PERCOCET) 10-325 mg per tablet Take 1 tablet by mouth 2 (two) times a day as needed 5 Active Mounjaro 12.5 mg/0.5 mL pen injector ADMINISTER 12.5 MG UNDER THE SKIN WEEKLY 4 Active Active Problems Problem Noted Date Diagnosed Date 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 07/15/2024 Other chest pain 07/15/2024 Status post panniculectomy 05/12/2024 Excess skin 03/25/2024 Derangement of knee 02/15/2024 Fracture of bone 02/15/2024 Left ovarian cyst 02/15/2024 Osteoarthritis 02/15/2024 Pain in limb 02/15/2024 Arthralgia of left ankle 12/25/2022 Arthralgia of left knee 12/25/2022 Sprain of left ankle 12/25/2022 Ruptured cerebral aneurysm 07/19/2021 Acute headache 07/19/2021 Essential (primary) hypertension 07/19/2021 Subarachnoid hemorrhage 07/05/2021 NAFLD (nonalcoholic fatty liver disease) 021 [...] Department Care Team Description 08/10/2024 9:30 AM HAIRSPRING ADJUSTER Office Visit [facility] [address] [place] [address] [place] [phone] Gin Conte NP Status post panniculectomy (Primary Dx) 07/15/2024 11:00 AM HAIRSPRING ADJUSTER Office Visit [facility] [address] [facility] [address] [place] [phone] Russell Louie MD Loose skin (Primary Dx); Status post panniculectomy from Last 3 Months Surgical History Surgery [...] on file Legal Sex Female 1:45 AM HAIRSPRING ADJUSTER Gender Identity Not on file Sexual Orientation Not on file Obstetrics History Last Filed Vital Signs Vital Sign Reading Time Taken Comments Blood Pressure 111/62 05/17/2024 7:35 AM HAIRSPRING ADJUSTER Pulse 88 05/17/2024 8:20 AM HAIRSPRING ADJUSTER Temperature 36.7 C (98 F) 05/17/2024 7:35 AM HAIRSPRING ADJUSTER Respiratory Rate 18 05/17/2024 7:35 AM HAIRSPRING ADJUSTER Oxygen Saturation 98% 05/17/2024 7:35 AM HAIRSPRING ADJUSTER Inhaled Oxygen Concentration - - Weight 72 kg (158 lb 11.7 oz) 05/17/2024 6:13 AM HAIRSPRING ADJUSTER Height 167.6 cm (5' 6 ) 05/17/2024 6:13 AM HAIRSPRING ADJUSTER Body Mass Index 25.62 05/17/2024 6:13 AM HAIRSPRING ADJUSTER Plan of Treatment Health Maintenance Due Date Last Done Comments Breast Cancer Screening-Mammogram 1979 Hemoglobin A1C 1979 Dilated Eye Exam 1979 Foot Exam 1979 DTaP/Tdap/Td Vaccine (1 - Tdap) 11/27/1990 Varicella Vaccines (1 of 2 - 13+ 2-dose series) 11/27/1992 Hepatitis B Screening 11/27/1997 Regular Well Visit/Exam 18-64 11/27/1997 Pneumococcal vaccine <65 (1 of 2 - PCV) 11/27/1998 Influenza Vaccine (#1) 2024 Albumin Creatinine Ratio, Urine 07/30/2024 07/30/2023 Lipid Panel 07/30/2024 07/30/2023 Depression Screening 03/25/2025 03/25/2024 eGFR 05/17/2025 05/17/2024, 04/29, 05/13/2024, Additional history exists Hepatitis C Screening Completed 05/14/2024 HPV Vaccines Aged Out No longer eligi ble based on patient's age to complete this topic Medical Devices Implanted Type Area Mds Rn Device Identifier Shelf Expiration Date Model / Serial / Lot [employer] Silvia Sealant Fibrin Patch [place] Set Frozen Prefilled Syringe Artiss 10ml [id number] - [id number] - [id number] Implanted:Qty: 1 on 05/12/2024 by Russell Louie MD at [facility] N/A: Abdomen [employer] Silvia 07/29/2025 [id number] / [id number] / [id number] Procedures Procedure Name Priority Date/Time Associated Diagnosis Comments EGFR Routine 05/17/2024 3:23 AM HAIRSPRING ADJUSTER HEPATITIS PANEL, ACUTE Timed 05/14/2024 1:34 PM HAIRSPRING ADJUSTER LIPID PANEL Routine 07/30/2023 8:51 AM HAIRSPRING ADJUSTER ALBUMIN CREATININE RATIO, URINE Routine 07/30/2023 8:51 AM HAIRSPRING ADJUSTER from Last 3 Months or Most Recently Relevant to Health Maintenance Results * eGFR (05/17/2024 3:23 AM HAIRSPRING ADJUSTER) eGFR >90 >=60 mL/min/1. 73 m2 Comment: [...] last reviewed 2021. Blood 05/17/2024 3:23 AM HAIRSPRING ADJUSTER 05/17/2024 4:05 AM HAIRSPRING ADJUSTER us Lolita Colon MD LAB BLOOD ORDERABLES Final Res ult [facility] [place] [address] * Hepatitis panel, acute Blood (05/14/2024 1:34 PM HAIRSPRING ADJUSTER) Hep A IgM Nonreactive Nonreactive Comment: Interpretive Data: If Hep A IgM Ab is reported as Equivocal, a new sample should be drawn in two weeks for testing. Current interpretive data was last revised on 19. Testing performed by: [facility], [address] [place] [address], [place]., [address] Hep B core IgM Nonreactive Nonreactive Kat [facility] ([place]) Comment: Interpretive Data If HepB Core IgM Ab is reported as Equivocal, a new sample should be drawn in two weeks for testing. Current interpretive data was last revised on 19. Testing performed by: [address] [address] Hep C Ab Nonreactive Nonreactive ERICK [facility] [...] last revised on 2019. Testing performed by: [address] [address] HepBsAg Nonreactive Nonreactive ERICK [facility] ([place]) Comment:Testing performed by : [address] [address] Blood 05/14/2024 1:34 PM HAIRSPRING ADJUSTER 05/15/2024 9:46 AM HAIRSPRING ADJUSTER us Lolita Colon MD LAB MICROBIOLOGY - GENERAL ORD ERABLES Final Result [facility] ([place]) 1 [facility] Department [place] [address] * Albumin Creatinine Ratio, Urine (07/30/2023 8:51 AM HAIRSPRING ADJUSTER) Albumin Ur <12.0 mg/L [facility] ([place]) Comment: Interpretive Data No reference range established. Current interpretive data was last revised 2018. Testing performed by: [address] [address] Creatinine Ur 75.1 mg/dL ERICK [facility] ([place]) Comment: Interpretive Data No reference range established. Current interpretive data was last revised 2018. Testing performed by: [address] [address] Albumin Creatinine Ratio, Ur <16 1 - 29 mg/g ERICK [facility] ([place]) Comment:Testing performed by : [facility], [address] [place] [address], [place]., [address] Urine 07/30/2023 8:51 AM HAIRSPRING ADJUSTER 07/30/2023 10:55 AM HAIRSPRING ADJUSTER us Rocio Wu LAY MIDWIFE LAB URINE ORDERABLES Final R esult [facility] ([place]) 1 [facility] Department [place] [address] * Lipid panel (07/30/2023 8:51 AM HAIRSPRING ADJUSTER) Cholesterol 91 30 - 199 mg/dL ERICK [...] ARGENTINA [facility] ([place]) Blood 07/30/2023 8:51 AM HAIRSPRING ADJUSTER 07/30/2023 10:12 AM HAIRSPRING ADJUSTER us Rocio Wu NP LAB BLOOD ORDERABLES Final R esult [facility] ([place]) 1 [facility] [place] [address] from Last 3 Months or Most Recently Relevant to Health Maintenance Insurance [facility] MEDICARE ADVANTAGE [facility] MEDICARE ADVANTAGE [employer] Care Teams Door To Door Salesperson Relationship Specialty Start Date End Date Henry Ruiz DO PCP - General Internal Medicine 12/09/21 Nicholas Peacock MD [address] [facility] [address] [place] [address] Surgeon Neurosurgery 02/19/22 Lolita Colon MD [address] [place] [address] [place] [address] Consulting Physician Internal Medicine 05/16/24
--- OUTSIDE RECORDS SUMMARY | 2024-10-11 18:04 | XMS_ITS | Encounter Summary ---
Author Organization [facility] Address [address] [facility] [place] [address] Care Team Providers Care Process Architect Name Role Phone Henry Ruiz DO Primary Care Provider [phone] Encounter Details Date Type Department Care Team (Late st Contact Info) Description 12/14/2017 Telephone [facility] [address] [place] [address] Nicholas Peacock MD [address] [address] Social History Tobacco Use Types Packs/Day Years Used Date Smoking Tobacco: Never Smokeless Tobacco: Never Alcohol Use Standard Drinks/Week Comments No 0 (1 standard drink = 0.6 oz pur e alcohol) 1-2 X A YEAR IF THAT Comments No Sex and Gender Information Value Date Recorded Sex Assigned at Not on file Legal Sex Female 12:37 PM FITNESS WORKER Gender Identity Not on file Sexual Orientation Not on file Occupation Industry Job Start Date Job End Date DISABLED Not on file Not on file Not on file documented as of this encounter Functional Status * Is person deaf or have serious hearing difficulty? Answer Date of Assessment Author No 01/18/2017 4:48 PM Domonique Calle RN * Is person blind or have serious difficulty seeing? Answer Date of Assessment Author No 01/18/2017 4:48 PM Domonique Calle RN * Does person have serious difficulty walking/climbing stairs? Answer Date of Assessment Author No 01/18/2017 4:48 PM Domonique Calle RN * Does person have difficulty dressing/bathing? Answer Date of Assessment Author No 01/18/2017 4:48 PM CDT Domonique Mitchell RN * Does person have difficulty doing errands alone? Answer Date of Assessment Author No 01/18/2017 4:48 PM CDT Domonique Mitchell RN documented as of this encounter Mental Status * Does person have difficulty concentrating/remembering/making decisions? Answer Entry Date Author No 01/18/2017 4:48 PM CDT Domonique Mitchell RN documented in this encounter Miscellaneous Notes * Telephone Encounter - Sintia Graf - 12/14/2017 1:18 PM CDT Patient scheduled for New Patient appointment. documented in this encounter Plan of Treatment Upcoming Encounters Date Type Department Care Team (Late st Contact Info) Description 05/04/2025 11:00 AM FITNESS WORKER Office Visit [facility] [id number] [address] Blanca Kamara, HOT METAL MIXER OPERATOR-[facility] [address] [facility] [address] [place], [place] [id number] documented as of this encounter Visit Diagnoses Not on filedocumented in this encounter Additional Health Concerns Infection Onset Date Last Indicated Resolved Time COVID-19 Confirmed 07/07/2021 07/07/2021 2 4:33 AM FITNESS WORKER documented as of this encounter Care Teams Process Architect Relationship Specialty Start Date End Date Henry Ruiz DO PCP - General Internal Medicine 10/12/15 documented as of this encounter
--- OUTSIDE RECORDS SUMMARY | 2024-10-11 18:04 | XMS_ITS | Clinical Summary ---
Author Organization [facility] Address [address] [place] [address] Phone Care Team Providers Care Insurance Marketing Rep Name Role Phone Henry Ruizian Primary Care [...] Comments Hepatitis C Virus (HCV) Screening 1979 Mammogram 1979 TdaP Immunization 1979 Hepatitis B Immunization [...] to complete this topic Insurance MEDICARE C [facility] MEDICAID [place] Care Teams Insurance Marketing Rep Relationship Specialty Start Date End Date Henry Ruiz DO [address] [place] [address] PCP - General Internal Medicine 02/07/23
--- OUTSIDE RECORDS SUMMARY | 2024-10-11 18:04 | XMS_ITS | Clinical Summary ---
Author Organization [facility] Address [address] [place] [address] Care Team Providers Care Irrigation Service Technician Name Role Phone Unavailable Primary Care Provider [...] Comments Blood Pressure 135/88 08/02/2021 8:10 AM COLOR STRAINER Pulse 105 08/02/2021 8:10 AM COLOR STRAINER just walked back from bathroom Temperature 36.8 C (98.3 F) 08/02/2021 8:10 AM COLOR STRAINER Respiratory Rate 17 08/02/2021 8:10 AM COLOR STRAINER Oxygen Saturation 96% 08/02/2021 8:1 0 AM COLOR STRAINER Inhaled Oxygen Concentration - - Weight 112.9 kg (249 lb) 08/02/2021 10: 00 AM COLOR STRAINER Height 170.2 cm (5' 7 ) 07/19/2021 7:00 PM COLOR STRAINER Body Mass Index 39 07/19/2021 7:00 PM COLOR STRAINER Plan of Treatment Not on file Advance Directives * Full Resuscitation (Latest Code Status on File) Date Activated Date Inactivated Comments 07/19/2021 8:25 PM 08/02/2021 9:42 PM
--- OUTSIDE RECORDS SUMMARY | 2024-10-11 18:04 | XMS_ITS | Data Portability ---
Author Organization [place] [facility], Main Office Address [address] [place] [address] Care Team Providers Care Squilgeer Name Role Phone WILLIAM MELENDEZ Primary Care [...] a dose pack 2022 023 [id number], [address], [place], [place], [id number], 3 13:39:32 Patient TargetsNo targets recorded. Patient [...] clear ed molec ular tests . Negat curtis resul ts do not precl ude SARS- [...] provi ders and patie nts at the [facility] te: https ://gl oalpo intof care. abbot t/en/ produ ct-de tails /id-n ow-co vid-1 9.htm l Metho dolog y: Isoth ermal Nucle ic Acid Ampli ficat ion Not Available [facility] (Lab) [address], [place], [address], 03/11/2021 15:05:04 02/08/20 21 XR, foot No observ ation record ed. [id number] [facility] [place] [address], [place], [address], 08/27/2022 12:59:30 02/13/20 21 XR, knee No observ ation record ed. [id number] [facility] [place] [address] [facility], [place], [address], 08/27/2022 12:59:30 03/28/20 XR, foot, 3 or more view No observ ation record ed. [id number] [facility] [address], [place], [address], 08/27/2022 12:59:30 04/18/20 21 XR, foot, 3 or more view No observ ation record ed. [id number] [facility] [address], [place], [address], 08/27/2022 12:59:30 12/18/19 23 emerg ency dept. 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 Active Not Available [facility] 3 12:54:37 Knee pain Active Not Available [facility] 3 12:54:38 Pain in right foot 2806609957347 07 Active 2020 Not Available [facility] 3 12:54:38 Hypertensi ve disorder 72136807 Active 2016 Not Available [facility] 3 12:54:38 Osteoarthr itis 981960573 Active Not Available [facility] 3 12:54:38 Foot pain 83271318 Active 2020 Not Available [facility] 3 12:54:38 Derangemen t of knee 79616700 Active Not Available [facility] 3 12:54:38 Acid reflux 425825026 Active 2016 Not Available [facility] 3 12:54:38 Pain in limb 25406665 Active Not Available [facility] 3 12:54:38 Pain of left ankle joint 7146894725847 9103 Active 2022 Ange Alvarado [facility] 3 13:22:10 Pain of left knee joint 5584501911102 07 Active 2022 Omar Goodson MD [address], [address] , [employer] [facility] 3 13:37:30 Sprain of left ankle 0411228765225 9105 Active 2022 Omar Goodson MD [address] [address], [place], [address] , [employer] [facility] [employer] [facility] 3 13:37:37 Problem Notes None recorded. Procedures Surgical History Date Name Laterality Status Provider Name and Address Organization Details Recorded Time 2 Brain Surgery completed Ange Jenny [facility] 12/25/2022 13:19:36 [facility] 12/25/2022 13:19:57 Toe completed [facility] 12/25/2022 13:20:15 Imaging Results Imaging Date Name Status LastModified by Organ [facility] Details LastModified Time 02/07/2021 XR, foot completed [id number] [facility] [address], [place], [address], 08/27/2022 12:59:30 02/12/2021 XR, knee completed [id number] 026 [facility] [address], [place], [address], 08/27/2022 12:59:30 03/28/2021 XR, foot, 3 or more view completed [id number] [facility] [address], [place], [address], 08/27/2022 12:59:30 04/18/2021 XR, foot, 3 or more view completed [id number] [facility] [address], [place], [address], 08/27/2022 12:59:30 12/17/2022 emergency dept. visit* completed [...] Name and Address Organization Details Recorded Time 11524 Non-stero idal anti-infl ammatory agent (product) medicatio n Not available Not available Not available 08/27/2022 37800 005 SNOMED Not Available [facility] 3 12:59:24 21527 morphine medicatio n Not available Not available Not available 12/25/2022 7052 RxNorm mouth ulcer s Ange Alvarado [facility], [place] [facility] 3 13:09:00 Medications Name Sig Start Date [...] office by the doctor 12/25 completed NDC: [id number] 001 Not Available Not Available Not Available [...] Date Recorded Body mass index (BMI) Body height Body weight Provider Name and Address Organization Details Last Updated DateTime 02/12/2021 40.7 kg/m2 170.18 cm 647422.02 g Not Available [employer] 08/27/2022 12:53:39 Date Recorded Body mass index (BMI) Body height Heart rate Body weight Systolic blood pressure Diastolic blood pressure Provider Name and Address Organization Details Last Updated DateTime 1 40.7 kg/m2 170.18 cm 88 /min 444105. 02 g 140 mm[Hg] 110 mm[Hg] Not Available [facility] 3 12:53:37 Date Recorded Body mass index (BMI) Body height Heart rate Body weight Systolic blood pressure Diastolic blood pressure Provider Name and Address Organization Details Last Updated DateTime 1 40.7 kg/m2 170.18 cm 88 /min 779959. 02 g 140 mm[Hg] 110 mm[Hg] Not Available [facility] 3 12:53:37 Date Recorded Body mass index (BMI) Body height Body weight Provider Name and Address Organization Details Last Updated DateTime 04/18/2021 40.7 kg/m2 170.18 cm 304620.02 g Not Available [facility] 08/27/2022 12:53:39 Date Recorded Body height Body mass index (BMI) Body weight Provider Name and Address Organization Details Last Updated DateTime 12/25/2022 170.18 cm 35.2 kg/m2 973300.28 g Ange Alvarado [facility] 12/25/2022 13:07:53 Social History Question Answer Notes LastModified by Organizat ion Details LastModified Time Tobacco Smoking Status Never Smoker Not Available [facility] 08/27/2022 12:52:22 What Is Your Level Of Alcohol Consumption? None [id number] Information not available 08/27/2022 Have You Recently Traveled Abroad? No [id number] Information not available 08/27/2022 Sex: Unknown Functional Status None recorded. Mental Status None recorded. Family History Relationship Description Onset Age of this Age Resolved Age Notes LastModified by Organization Details LastModified Time Mother Kidney disease [id number] Not available 08/27/2022 12:52:31 Medical History Condition Response HAVE YOU BEEN HOSPITALIZED OR SEEN IN THE MEDICAL CENTER IN THE PAST YEAR ? Y ARTHRITIS Y USE OF BLOOD THINNERS Y BLOOD CLOTS Y HEADACHES/MIGRAINES Y HYPERTENSION Y ANEMIA/BLOOD DISORDER Y Gynecological HistoryNo gynecological history recorded. Obstetrics History GPAL:G 0 P 0 0 0 0 Past Encounters Encounter ID Performer Location Encounter Start Date Encounter Closed Date Diagnosis/Indication Diagnosis SNOMED-CT Code Diagnosis ICD10 Code Diagnosis Note [id number] [facility] [place] [address] [place] [address] 02/07/2021 00:00:00 02/08/2021 09:16:25 [id number] [facility] [place] [address] [place] [address] 02/12/2021 00:00:00 02/12/2021 12:05:36 [id number] [facility] [place] [address] [place] [address] 03/21/2021 00:00:00 03/24/2021 14:39:24 [id number] [facility] [place] [address] [place] [address] 03/28/2021 00:00:00 03/28/2021 15:42:50 [id number] [facility] [place] [address] [place] [address] 04/18/2021 00:00:00 04/22/2021 10:37:35 [id number] Omar Goodson MD [facility] [place] [address] [place] [address] 12/25/2022 12:36:13 12/25/2022 13:37:49 Pain of left ankle joint 3226138917 6469368 M25.572 Sprain of left ankle 953 8915803 0226973 S93.402A Pain of le ft knee joint 1370760671 91051 M25.562 Health Concerns Section Related Observation LastModified by Organization Detai ls LastModified Time None Recorded Concern Status LastModified by Organization Details LastModified Time None Recorded Advance Directives Directive None Recorded Payers Encounter Date Sequence Insurance Name Policy Number Policy Ramirez Covered Member ID Ramirez Member ID Guarantor Name 12/25/2022 1 [facility] (MEDICARE REPLACEMENT/AD VANTAGE - PPO) [id number] Dory Barnes [id number] Dory Barnes 12/25/2022 2 [place] WHEN MEDICARE OR MEDICARE REPLACEMENT PRIMARY) Dory Barnes [id number] Dory Barnes Notes Date Note Type Note [...] her ankle are unremarkable. Omar Goodson MD [address] [place] [address], [place], [address], [place] [facility] [address] 12/25/2022 13:39:29 OBGyn Episode No OBEpisode recorded.
--- OUTSIDE RECORDS SUMMARY | 2024-10-11 18:04 | XMS_ITS | Data Portability ---
Author Organization [facility] Address [address] [place] [address] Assessment No assessment recorded. Plan of Treatment Reminders Order Date Submit Date Provider Last Modified By Organization Details Last Modified Time Details Appointments None recorded. Lab bacterial vaginosis + vaginitis panel, vaginal 2018 019 [facility], [address], [address], [place], [address], 9 14:13:24 HSV (1+2) DNA, qual, PCR, unspecifi ed specimen 2018 019 [facility], [address], [place], [address], 9 14:13:25 urinalysi s, dipstick 2018 019 chand[facility] In-Office Order, Internal Use Only DO Not Attach Compendium DO Not Attach Compendium, Do Not Delete/merge, [id number] 9 10:35:16 hepatitis panel (A+B+C), acute, serum 2018 019 [facility], [address], [place], [address], 9 11:35:34 hepatitis B surface Ab, qualitati ve, serum 2018 019 [facility], [address], [place], [address], 9 11:35:35 HIV 1+2 AB + HIV 1 p24 Ag, qualitati ve immunoass ay, serum 2018 [place] [facility], [address] [address], [place], [address], 9 11:35:37 treponema pallidum screen, serum, reflex confirmat ion 2018 [place] [facility] (Centralized Electronic Ordering - All Locations), Patient Can Go To The Location Of Their Choice, [id number] 9 11:35:36 HSV 2 IgG Ab, QN, IA, serum 2018 [place] [facility] (Centralized Electronic Ordering - All Locations), Patient Can Go To The Location Of Their Choice, [id number] 9 11:35:37 Referral None recorded. Procedures None recorded. Surgeries None recorded. Imaging US, breast, bilateral , w/ axilla 2018 [facility] ([facility] Sched[facility]), [address] [place], [address], 9 09:50:37 MAMMO, diagnosti c, digital, bilateral 2018 [facility] (One Call Scheduling), [address] [place], [address], 9 17:04:55 US, pelvis, transabdo luis + transvagi nal 2018 [facility] (One Call Scheduling), [address] [place], [address], 9 12:30:59 Medication Orders Bicillin L-A 2,400,000 unit/4 mL intramusc ular syringe 2018 [id number], [address], [place], [id number], 9 09:44:25 fluconazo le 150 mg tablet 2018 019 [facility] [employer] #[id number], [address], [place], [id number], 9 17:49:55 Bicillin L-A 2,400,000 unit/4 mL intramusc ular syringe 2018 019 [facility]20340, [address], [place], [id number], 9 17:49:55 Diflucan 150 mg tablet 2018 019 [facility] [employer] #[id number], [address], [place], [id number], 9 10:36:10 Flagyl 500 mg tablet 2018 019 [facility] [employer] #01318, [address], [place], [id number], 9 10:01:10 Patient TargetsNo targets recorded. Patient Instructions Encounter Date Encounter Id Patient Instructions Last Modified By Organization Details Last Modified Time 07/20/2018 [id number] bladder training: care instructions svuyyuru Not available [...] Instructions svuyyuru Not available 07/20/2018 11:49:54 08/02/2018 [id number] syphilis: care instructions mwasserman Not available 08/02/2018 17:49:55 08/09/2018 [id number] syphilis: care instructions fridayuru Not available 08/10/2018 09:44:25 08/16/2018 [id number] syphilis: care instructions svuyyuru Not available 08/16/2018 [...] 10:34:17 07/20/1907/20/2018 urina lysis , dipst ick Specific [place] 1.020 Not Available In-Off ice Order Internal Use Only DO Not Attach Compendium DO Not Attach Compendium, Do Not Delete/merge, [id number] 07/20/2018 10:34:17 07/20/1907/20/2018 urina lysis , dipst [...] 10:34:17 07/20/1907/20/2018 urina lysis , dipst ick Glucose Negati ve Not Available In-Office Order Internal Use Only DO Not Attach Compendium DO Not Attach Compendium, Do Not Delete/merge, 07/20/2018 10:34:17 07/20/1907/21/2018 hepat itis panel (A+B+ C), acute , serum hep A Ab, IgM Negati ve negati ve Not Available [facility] ([facility]) [address] [place], [address], 07/23/2018 11:35:34 07/20/1907/21/2018 hepat itis panel (A+B+ C), acute , serum HBsAg screen Negati ve negati ve Not Available [facility] ([facility]) [address] [place], [address], 07/23/2018 11:35:34 07/20/1907/21/2018 hepat itis panel (A+B+ C), acute , serum hep B core Ab, IgM Negati ve negati ve Not Available [facility] ([facility]) [address] [place], [address], 07/23/2018 11:35:34 07/20/1907/21/2018 hepat itis panel (A+B+ C), acute , serum hep C virus Ab 0.2 s/co_ ratio 0.0-0. 9 Negat curtis: < 0.8 Indet ermin ate: 0.8 - 0.9 Posit curtis: > 0.9 The [facility] recom mends that a posit curtis HCV antib sharad resul t be follo wed up with a HCV Nucle ic Acid Ampli ficat ion test (5507 13). Not Available [facility] ([facility]) [address] [place], [address], 07/23/2018 11:35:34 07/20/1907/21/2018 hepat itis B surfa ce Ab, quali tativ e, serum hep B surface Ab, qual Non Reacti ve Non React curtis: Incon siste nt with immun ity, less than 10 mIU/m L React curtis: Consi stent with immun ity, great er than 9.9 mIU/m L Not Available [facility] ([facility]) [address] [place], [address], 07/23/2018 11:35:35 07/20/1907/21/2018 trepo nema palli dum scree n, serum , refle x confi rmati on T pallidum antibodies Positi ve negati ve abnormal Not Available [facility] ([facility]) [address] [place], [address], 07/23/2018 11:35:35 07/20/1907/22/2018 trepo nema palli dum scree n, serum , refle x confi rmati on RPR Non Reacti ve non reacti ve Not Available [facility] ([facility]) [address] [place], [address], 07/23/2018 11:35:35 07/20/1907/23/2018 RPR (rapi d plasm [...] rmati on of the diagn osis by [facility] medic ally estab lishe d diagn ostic produ ct or proce dure. Not Available [facility] ([facility]) [address] [place], [address], 07/23/2018 11:35:36 07/20/19 19 07/21/2018 HIV 1+2 AB + HIV 1 p24 Ag, quali tativ e immun oassa y, serum HIV screen 4TH generation wrfx Non Reacti ve non reacti ve Not Available [facility] ([facility]) [address] [place], [address], 07/23/2018 11:35:37 07/20/1907/21/2018 HSV 2 IgG Ab, [...] quinton to HSV-2 . Not Available [facility] ([facility]) [address] [place], [address], 07/23/2018 11:35:37 07/20/19 19 07/22/2018 bacte rial vagin osis + vagin itis panel , vagin al trich vag by HONG Negati ve negati ve Not Available [facility] ([facility]) [address] [place], [address], 07/23/2018 14:13:24 07/20/19 19 07/22/2018 bacte rial vagin osis + vagin itis panel , vagin al chlamydia trachomatis, HONG Negati ve negati ve Not Available [facility] ([facility]) [address] [place], [address], 07/23/2018 14:13:24 07/20/19 19 07/22/2018 bacte rial vagin osis + vagin itis panel , vagin al neisseria gonorrhoeae, HONG Negati ve negati ve Not Available [facility] ([facility]) [address] [place], [address], 07/23/2018 14:13:24 07/20/1907/23/2018 bacte rial vagin osis [...] men for testi ng. Not Available [facility] ([facility]) [address] [place], [address], 07/23/2018 14:13:24 07/20/19 19 07/23/2018 bacte rial [...] men for testi ng. Not Available [facility] ([facility]) [address] [facility], [place], [address], 07/23/2018 14:13:24 07/20/19 19 07/23/2018 bacte rial [...] baljinder cteri stics deter mined by [facility] . It has not been clear ed or appro cassi by the Food and Drug Admin istra tion. The FDA has deter mined that such clear ance or appro jaylyn is not neces michael. Not Available [facility] ([facility]) [address] [facility], [place], [address], 07/23/2018 14:13:24 07/20/1907/23/2018 bacte rial vagin osis [...] men for testi ng. Not Available [facility] ([facility]) [address] [place], [address], 07/23/2018 14:13:24 07/20/1907/23/2018 bacte rial vagin osis [...] is not neces michael. Not Available [facility] ([facility]) [address] [facility], [place], [address], 07/23/2018 14:13:24 07/20/19 19 07/22/2018 HSV (1+2) DNA, qual, PCR, unspe cifie d speci men hsv 1 HONG Negati ve negati ve Not Available [facility] ([facility]) [address] [place], [address], 07/23/2018 14:13:25 07/20/1907/22/2018 HSV (1+2) DNA, qual, PCR, unspe cifie d speci men hsv 2 HONG Negati ve negati ve Not Available [facility] ([facility]) [address] [place], [address], 07/23/2018 14:13:25 07/26/1907/27/2018 trepo nema palli dum scree n, serum , refle x confi rmati on T pallidum antibodies Positi ve negati ve abnormal Not Available [facility] ([facility]) [address] [place], [address], 07/29/2018 10:36:24 07/26/19 19 07/28/2018 trepo nema palli dum scree n, serum , refle x confi rmati on RPR Non Reacti ve non reacti ve Not Available [facility] ([facility]) [address] [facility], [place], [address], 07/29/2018 10:36:24 07/26/1907/29/2018 RPR (rapi d plasm a reagi n), [...] rmati on of the diagn osis by [facility] medic ally estab lishe d diagn ostic produ ct or proce dure. Not Available [facility] ([facility]) [address] [facility], [place], [address], 07/29/2018 10:36:24 08/16/1908/17/2018 inhib in A + B panel , serum or plasm a inhibin A, ultrasensiti ve 8.8 pg/mL Menst rual Phase Early Folli cular <34.0 Late Folli cular <99.0 Perio vulat ory 8.0-2 33.0 MidLu teal <145. 0 End Lutea l <145. 0 Postm enopa usal <4.0 Not Available [facility] ([facility]) [address] [place], [address], 08/19/2018 16:16:37 08/16/19 19 08/19/2018 inhib in [...] produ ct have not been estab neela d. Resul ts shoul d not be used as a diagn ostic proce dure witho ut confi rmati on of the diagn osis by [facility] medic ally estab lishe d diagn ostic produ ct or proce dure. Not Available [facility] ([facility]) [address] [facility], [place], [address], 08/19/2018 16:16:37 08/16/19 19 08/16/2018 zander (risk of ovari an davis mcnamara algor ithm score ), serum (zarina enopa usal) premenopausa l interp: low Commen t If the patie nt is preme nopau julita, then the preme nopau julita ZANDER score of less than 1.14 is consi stent with a low likel ihood of findi ng a davis mcnamara on surge ry. Not Available [facility] ([facility]) [address] [place], [address], 08/19/2018 16:16:37 08/16/19 19 08/16/2018 zander (risk [...] naima on surge ry. Not Available [facility] ([facility]) [address] [facility], [place], [address], 08/19/2018 16:16:37 08/16/19 19 08/16/2018 zander (risk [...] or low likel ihood of findi ng malig naima on surge ry. ZANDER is indic ated [...] t be used inter aleman pallavi . Not Available [facility] ([facility]) [address] [facility], [place], [address], 08/19/2018 16:16:37 08/16/19 19 08/17/2018 zander (risk [...] t be inter prete d as absol bi evide nce of the prese nce or absen ce of malig nant disea se. Not Available [facility] ([facility]) [address] [facility], [place], [address], 08/19/2018 16:16:37 08/16/19 19 08/18/2018 zander (risk of ovari an malig naima algor ithm score ), serum (zarina enopa usal) he4 47.1 pmol/ L 0.0-61 .2 Anthony Diagn ostic s Elect anthony milum inesc ence Immun oassa y (ECLI A) Value s obtai cleve with diffe rent assay metho ds or kits canno t be used inter aleman eaash . Resul ts canno t be inter prete d as absol bi evide nce of the prese nce or absen ce of malig nant disea se. Not Available [facility] ([facility]) [address] [facility], [place], [address], 08/19/2018 16:16:37 08/16/19 19 08/18/2018 zander (risk of ovari an malig naima algor ithm score ), serum (zarina enopa usal) premenopausa l zander 0.64 see below Not Available [facility] ([facility]) [address] [facility], [place], [address], 08/19/2018 16:16:37 08/16/19 19 08/18/2018 zander (risk of ovari an malig naima algor ithm score ), serum (zarina enopa usal) postmenopaus al zander 0.95 see below Not Available [facility] ([facility]) [address] [facility], [place], [address], 08/19/2018 16:16:37 08/16/19 19 08/17/2018 carci noemb [...] t be inter prete d as absol bi evide nce of the prese nce or absen ce of [facility]. Not Available [facility] ([facility]) [address] [facility], [place], [address], 08/19/2018 16:16:38 08/16/19 19 08/17/2018 afp (alph [...] t be inter prete d as absol bi evide nce of the prese nce or absen ce of [facility]. This test is not inter preta ble in pregn ant femal es. Not Available [facility] ([facility]) [address] [facility], [place], [address], 08/19/2018 16:16:39 08/16/1908/17/2018 HCG, intac t + beta subun it, quant , serum or plasm a HCG,beta subunit,qnt, serum 3 mIU/m L Femal e (Non- pregn ant) 0 - 5 (Post menop ausal ) 0 - 8 Femal e (Preg nant) Weeks of Gesta tion 3 6 - 71 4 10 - 750 5 474 - 3752 6 730 - 25951 7 6775 -6140 63 8 98952 -6334 71 9 85400 -6721 10 10 03007 -8886 77 12 41905 -2106 12 14 59873 - 85771 15 45211 - 63441 16 2658 - 25086 17 5024 - 23759 18 4683 - 54776 Anthony ECLIA metho dolog y Not Available [facility] ([facility]) [address] [facility], [place], [address], 08/19/2018 16:16:39 08/16/19 19 08/17/2018 ldh, serum or plasm a LDH 179 IU/L 119-22 6 Not Available [facility] ([facility]) [address] [facility], [place], [address], 08/19/2018 16:16:40 11/05/19 15 11/04/2014 imagi ng/di agnos tic resul t No observ ation record ed. [email or web address] Not Available 2014 23:27:59 11/20/19 15 11/18/2014 imagi ng/di agnos tic resul t No observ ation record ed. [facility] ([facility]) [address] [place], [address], 11/20/2014 16:46:46 12/21/19 15 12/19/2014 imagi ng/di agnos tic resul t No observ ation record ed. [facility] ([facility]) [address] [place], [address], 12/20/2014 09:16:41 12/27/19 15 12/19/2014 imagi ng/di agnos tic resul t No observ ation record ed. [facility] ([facility]) [address] [place], [address], 12/26/2014 09:10:49 09/12/19 16 09/12/2015 CT, sinus es No observ ation record ed. [facility] ([facility]) [address] [place], [address], 09/12/2015 20:14:41 08/02/19 19 08/02/2018 US, breas t, bilat eral, w/ axill a No observ ation record ed. [facility] [address] [place], [address], 08/03/2018 17:29:58 08/02/19 19 08/02/2018 US, breas t, bilat eral, w/ axill a No observ ation record ed. [email or web address] Not Available 2018 13:52:37 08/12/1908/02/2018 US, pelvi s, trans abdom inal + trans vagin al No observ ation record ed. [facility] ([facility] Sched[facility]) [address] [place], [address], 08/16/2018 15:28:22 Result Notes None recorded. Problems Name Problem SNOMED Code Status Onset Date Resolution Date Notes Provider Name and Address Organization Details Recorded Time Syphilis 39831346 Active 2018 Jyoti Moses MD Attn: Accounting, [address] [place], [address], [facility] 9 12:03:36 Diverticular disease 976673347 Active Crystal Mina MD Attn: Accounting, [address] [place], [address], [place] [facility] 5 16:44:18 Abdominal pain 34904641 Active Crystal Mina MD Attn: Accounting, [address] [place], [address], [place] [facility] 4 16:13:19 Gastroesopha geal reflux disease 726816447 Active Crystal Mina MD Attn: Accounting, [address] [place], [address], [facility] 4 16:13:19 Notes: I am just here for my follow up Problem Notes None recorded. Procedures Surgical History Date Name Laterality Status Provider Name and Address Organization Details Recorded Time endometrial ablation completed Chris Moses MD Attn: Accounting,[address] , [place], [address], [facility] 07/20/2018 09:47:46 bariatric operative procedure completed Jyoti Moses MD Attn: Accounting,[address] , [place], [address], [facility] 07/20/2018 10:23:16 Hysterectomy completed September [facility] 06/28/2014 15:32:38 Dilation and Curettage completed September [facility] 06/28/2014 15:32:38 Arthroscopic Surgery completed Avinash gentry [facility] 06/28/2014 15:32:38 Gastrointestinal Surgery completed September [facility] 06/28/2014 15:32:38 Knee Surgery completed September [facility] 06/28/2014 15:32:38 Imaging Results Imaging Date Name Status LastModified by Organization Details LastModified Time 11/04/2014 imaging/diagnostic result completed [facility] Information not available 11/05/2014 23:27:59 11/18/2014 imaging/diagnostic result completed [facility] ([facility]) [address] [place], [address], 11/20/2014 16:46:46 12/19/2014 imaging/diagnostic result completed [facility] ([facility]) [address] [place], [address], 12/20/2014 09:16:41 12/19/2014 imaging/diagnostic result completed [facility] ([facility]) [address] [place], [address], 12/26/2014 09:10:49 09/12/2015 CT, sinuses completed [facility] ([facility]) [address] [place], [address], 09/12/2015 20:14:41 08/02/2018 US, breast, bilateral, w/ axilla completed [facility] [address] [place], [address], 08/03/2018 17:29:58 08/02/2018 US, breast, bilateral, w/ axilla completed [email or web address] Information not available 08/04/2018 13:52:37 08/02/2018 US, pelvis, transabdominal + transvaginal completed [facility] ([facility] Sched[facility]) [address] [place], [address], 08/16/2018 15:28:22 Procedure Notes None recorded. Medical [...] Address Organization Details Last Updated DateTime 07/20/2018 25154.33 g 128 mm[Hg] 88 mm[Hg] Harpreet Quintero [place] [facility] 07/20/2018 09:11:34 Date Recorded Body weight Systolic blood pressure Diastolic blood pressure Provider Name and Address Organization Details Last Updated DateTime 08/16/2018 77213.33 g 126 mm[Hg] 88 mm[Hg] Harpreet Quintero [place] [facility] 08/16/2018 14:59:07 Date Recorded Body temperature Body height Body mass index (BMI) Heart rate Respiratory rate Body weight Systolic blood pressure Diastolic blood pressure Provider Name and Address Organization Details Last Updated DateTime 5 98 [degF] 170.18 cm 45.4 kg/m2 84 /min 20 /min 768976. 7873 g 140 mm[Hg] 88 mm[Hg] September GUERLINE Velasquez [facility] 5 16:26:30 Social History Question Answer Notes LastModified by Organizat ion Details LastModified Time Tobacco Smoking Status Never Smoker September GUERLINE Velasquez, [place] - [facility] 06/28/2014 15:32:39 Do You Have An Advance [...] available 07/20/2018 Performs Monthly Self-breast Exam? No Information no t available 07/20/2018 Do You Use Protection During Sex? No harley private Information not available 07/20/2018 What Is Your Relationship Status? harley private Information not available 07/20/2018 Seat Belts Used Routinely Yes harley private Information not available 07/20/2018 Are You Sexually Active? Yes harley private Information not available 07/20/2018 Smoke Alarm In Home Yes harley private Information not available 07/20/2018 How Much Tobacco Do You Smoke? No [email or web address] Information not available 08/16/2018 General Stress Level High harley private Information not available 07/20/2018 Do You Use Sunscreen Routinely? [facility] available 07/20/2018 How Many Years Have You Smoked Tobacco? 0 harley private Information not available 07/20/2018 Sex: Unknown Functional Status Question Answer Note LastModified by Organizat ion Details LastModified Time What is your exercise level? Occasional harley private Information not available 07/20/2018 Mental Status None [...] Response Coronary Artery Disease N Other N Atrial Fibrillation N High Blood Pressure Y Depression N COPD N Blood Clots Y Anxiety Disorder Y Muscle, Joint, or Bone Problems Y Acid Reflux (GERD) Y Cancer N Stroke N High Cholesterol N Liver Disease N Headaches Y Kidney or Bladder Problems N Thyroid Problems N GI Problems N Skin Problems N Anemia N Heart Attack ([place]) N Diabetes N Seizures/Epilepsy N Asthma Y Allergies N Hepatitis N Osteoporosis N Heart Failure N Gynecological History [...] SNOMED-CT Code Diagnosis ICD10 Code Diagnosis Note [id number] MARIELOS Arreola (Adult Med) [address] [place] [address] 06/28/2014 15:15:04 06/28/2014 17:20:53 Abdominal pain 77271149 L mid abdominal pain in a 33y/o lady s/p lap band surgery, I will like to obtain a CT scan and proceed with a referral to a bariatric surgeon. Her weight gain may mean she needs her lapband adjusted. Labs were also ordered. She follows up with Dr. Hernandez (Anatomy And Physiology Instructor) and apparently had a FRANSISCO some time ago with multiple laparoscop ic surgeries, she has either one or both ovaries and she is on Metformin for PCOS Gastroesop hageal reflux disease 499950260 General ex amination of patient [id number] She has refused the Influenza vaccine, her 29lb weight gain despite lap-band surgery prompts the need for an evaluation by a bariatric surgeon locally, as she is unable to go back to [place]. I will initiate a referral [id number] Analisa Steiner (Adult Med) [address] [place] [address] 10/12/2014 15:52:14 10/12/2014 17:36:07 Diverticular disease 084483149 Noted on CT, her normal labs were discussed [id number] MD Obdulia Kuo (LEARNING ADMINISTRATOR) [address] [place] [address] 07/20/2018 08:54:48 07/20/2018 17:04:55 Gynecologic examination 93485429 Z01.419 Age appropriat e counseling done. Venereal d isease screening 183977638 Z11.3 Z20.2 Pain in pelvis 66369398 R10.2 COUNSELED THOROUGHLY ABOUT IT. REVIEWED CT PELVIS FROM 04/27/18 - 7.5 CM LEFT ADNEXAL CYST. COUNSELED THOROUGHLY ABOUT IT. TVUS ORDERED. Cyst of ovary 24395022 N 83.[address] PELVIS FROM 04/27/18 - 7.5 CM LEFT ADNEXAL CYST. COUNSELED THOROUGHLY ABOUT IT. TVUS ORDERED. Bacterial vaginosis 4197 45317 N76.0 COUNSELED THOROUGHLY ABOUT IT. Breast lump 14796823 N63 .0 COUNSELED THOROUGHLY ABOUT IT. Morbid obesity 233947221 E66.01 Counseled About weight loss, diet and excercise. Advised patient to f/u with pelt salter. Candidiasis of skin 4988 3006 B37.2 COUNSELED THOROUGHLY ABOUT IT. Female str ess incontinence 80265932 N39.3 COUNSELED THOROUGHLY ABOUT IT AND KEGEL EXCERCISES . SINCE ITS ONLY ONCE ENCOURAGE KEGEL EXCERCISES . [id number] Eusebia Steiner (LEARNING ADMINISTRATOR) [address] [place] [address] 0 08/02/2018 16:15:38 08/03/2018 10:32:07 Candidiasis of vagina 96974839 B37.3 Syphilis 95135166 A53.9 [id number] Eusebia Spainquyen Steiner (LEARNING ADMINISTRATOR) [address] [place] [address] 0 08/09/2018 17:10:05 08/10/2018 10:39:52 Syphilis 62552530 A53.9 [id number] MD Obdulia Kuo (LEARNING ADMINISTRATOR) [address] [place], [place] [id number] 08/16/2018 14:46:40 08/17/2018 13:27:00 Cyst of left ovary [id number] N83.202 D/W patient TVUS result. Counseled thoroughly about the ovarian cyst with heterogeno us areas. Gave patient orders sheet for tumor markers. 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 Syphilis [id number] A53.9 Counseled about it. Patient say she [...] Name 10/12/2014 1 [place] Dory Barnes [id number] [facility] 10/12/2014 2 [place] WHEN [place]ICARE OR MEDICARE REPLACEMENT PRIMARY) Dory Barnes [id number] [facility] 07/20/2018 1 [place] Dory Barnes [id number] [facility] 07/20/2018 2 [place] WHEN [place] OR MEDIC[place] REPLACEMENT PRIMARY) Dory Johnsonll [id number] [facility] 08/02/2018 2 [place] WHEN [place] OR MEDICARE REPLACEMENT PRIMARY) Dory Barnes [id number] [facility] 08/02/2018 1 [place]UAL [place]IG[place] (MEDICARE - MEDICAID REPLACEMENT HMO) Dory Johnsonll [id number] [facility] 08/09/2018 2 [place] OR MEDICARE REPLACEMENT PRIMARY) Dory Barnes [id number] [facility] 08/09/2018 1 [place] (MEDICARE - MEDICAID REPLACEMENT HMO) Dory Johnsonll [id number] [facility] 08/16/2018 2 [place] WHEN [place] OR MEDICARE REPLACEMENT PRIMARY) Dory Barnes [id number] [facility] 08/16/2018 1 [place] (MEDICARE - MEDICAID REPLACEMENT HMO) [facility] [id number] [facility] Notes Date Note Type Note Provider Name [...] left adnexal cyst. Duration:constant Quality:tender Severity:pain level /10 Context:history of ovarian cysts; history of hysterectomy [...] irritation; no dyspareunia Jyoti Moses MD Attn: Accounting,[address] [place], [address], [facility] 07/20/2018 12:30:02 08/16/2018 text/html Patient here to f/u on TVUS for pelvic pain. Patient denies any active vaginal bleeding today or vaginal discharge. Jyoti Moses MD Attn: Accounting,[address] [place], [address], [facility] 08/16/2018 15:33:39 OBGyn Episode Ob Episode Information Episode Created Date Number of Fetuses Patient Bloodtype Patient rh Status Prepregnancy Weight lbs Domestic Partner Domestic Partner Phone Father Name Offset Press Operator Apprentice Status 07/20/19 19 1 CLOSED Fetus Data First Name Last Name Admitted to NICU Weight (g) Sex Living Outcome Pediatric Complications Fetus ID Race Codes Race Delivery Type 3572.03 7 F Full Term [address]8330 Vaginal Only Martir Calculation Initial Martir Date [...] Domestic Partner Domestic Partner Phone Father Name Offset Press Operator Apprentice Status 07/20/19 19 1 CLOSED Fetus Data First Name Last Name Admitted to NICU Weight (g) Sex Living Outcome Pediatric Complications Fetus ID Race Codes Race Delivery Type 2834.95 M Prematur e 12588 Vaginal Only Martir Calculation Initial Martir Date [...] Domestic Partner Domestic Partner Phone Father Name Offset Press Operator Apprentice Status 07/20/19 19 1 CLOSED Fetus Data First Name Last Name Admitted to NICU Weight (g) Sex Living Outcome Pediatric Complications Fetus ID Race Codes Race Delivery Type 3231.84 3 F Full Term 54585 Vaginal Only Martir Calculation Initial Martir Date [...]
--- OUTSIDE RECORDS SUMMARY | 2024-10-11 18:04 | XMS_ITS | Referral Summary ---
Author Organization [facility] Address [address] [place] [id number] Care Team Providers Care Ball Holder Name Role Phone Henry Ruiz DO Primary Care Provider [phone] Nicholas Peacock MD Unavailable [phone] Lolita Colon MD Unavailable [phone] Encounters Date Type Department Care Team Description 08/10/2024 9:30 AM CLOTH TESTER QUALITY Office Visit [facility] [address] [place] [address] [address] [place] [address] Gin Conte NP Status post panniculectomy (Primary Dx) 07/15/2024 11:00 AM CLOTH TESTER QUALITY Office Visit [facility] [address] [facility] [address] [place] [id number] Russell Louie MD Loose skin (Primary Dx); Status post panniculectomy from Last 3 Months Allergies Active Allergy [...] within 12 hours or as directed by 14 patch 3 Active cyclobenzaprine (FLEXERIL) 10 [...] Diagnosed Date Atherosclerotic heart diseas e of [place] coronary artery without angina pectoris 07/15/2024 Other [...] on file Legal Sex Female 1:45 AM CLOTH TESTER QUALITY Gender Identity Not on file Sexual Orientation Not on file Last Filed Vital Signs Vital Sign Reading Time Taken Comments Blood Pressure 111/62 05/17/2024 7:35 AM CLOTH TESTER QUALITY Pulse 88 05/17/2024 8:20 AM CLOTH TESTER QUALITY Temperature 36.7 C (98 F) 05/17/2024 7:35 AM CLOTH TESTER QUALITY Respiratory Rate 18 05/17/2024 7:35 AM CLOTH TESTER QUALITY Oxygen Saturation 98% 05/17/2024 7:35 AM CLOTH TESTER QUALITY Inhaled Oxygen Concentration - - Weight 72 kg (158 lb 11.7 oz) 05/17/2024 6:13 AM CLOTH TESTER QUALITY Height 167.6 cm (5' 6 ) 05/17/2024 6:13 AM CLOTH TESTER QUALITY Body Mass Index 25.62 05/17/2024 6:13 AM CLOTH TESTER QUALITY Plan of Treatment Not on file Medical Devices Implanted Type Area Policy Writer Device Identifier Shelf Expiration Date Model / Serial / Lot Corindus Sealant Fibrin Patch [place] Set Frozen Prefilled Syringe Artiss 10ml [id number] - [id number] - [id number] Implanted:Qty: 1 on 05/12/2024 by Russell Louie MD at [facility] N/A: Abdomen Corindus 07/29/2025 [id number] / [id number] / [id number] Procedures Procedure Name Priority Date/Time Associated Diagnosis Comments EGFR Routine 05/17/2024 3:23 AM CLOTH TESTER QUALITY HEPATITIS PANEL, ACUTE Timed 05/14/2024 1:34 PM CLOTH TESTER QUALITY LIPID PANEL Routine 07/30/2023 8:51 AM CLOTH TESTER QUALITY ALBUMIN CREATININE RATIO, URINE Routine 07/30/2023 8:51 AM CLOTH TESTER QUALITY from Last 3 Months or Most Recently Relevant to Health Maintenance Results * eGFR (05/17/2024 3:23 AM CLOTH TESTER QUALITY) eGFR >90 >=60 mL/min/1. 73 m2 Comment: [...] last reviewed 2021. Blood 05/17/2024 3:23 AM CLOTH TESTER QUALITY 05/17/2024 4:05 AM CLOTH TESTER QUALITY us Lolita Colon MD LAB BLOOD ORDERABLES Final Res ult ERICK VANCE (BEHZAD) [address] [facility] [place] [address] * Hepatitis panel, acute Blood (05/14/2024 1:34 PM CLOTH TESTER QUALITY) Hep A IgM Nonreactive Nonreactive Comment: Interpretive Data: If Hep A IgM Ab is reported as Equivocal, a new sample should be drawn in two weeks for testing. Current interpretive data was last revised on 19. Testing performed by: [address] [address] Hep B core IgM Nonreactive Nonreactive C ROSALBAER RAJIV (BEHZAD) Comment: Interpretive Data If HepB Core IgM Ab is reported as Equivocal, a new sample should be drawn in two weeks for testing. Current interpretive data was last revised on 19. Testing performed by: [address] [address] Hep C Ab Nonreactive Nonreactive ERICK VANCE [...] last revised on 2019. Testing performed by: [address] [address] HepBsAg Nonreactive Nonreactive ERICK VANCE (BEHZAD) Comment:Testing performed by : [address] [address] Blood 05/14/2024 1:34 PM CLOTH TESTER QUALITY 05/15/2024 9:46 AM CLOTH TESTER QUALITY us Lolita Colon MD LAB MICROBIOLOGY - GENERAL ORD ERABLES Final Result ERICK VANCE (BEHZAD) 1 [facility] Department [place] [address] * Albumin Creatinine Ratio, Urine (07/30/2023 8:51 AM CLOTH TESTER QUALITY) Albumin Ur <12.0 mg/L CERNER AM [facility] (BEHZAD) Comment: Interpretive Data No reference range established. Current interpretive data was last revised 2018. Testing performed by: [facility], [address] [place] [address]., [address] Creatinine Ur 75.1 mg/dL ERICK [facility] (BEHZAD) Comment: Interpretive Data No reference range established. Current interpretive data was last revised 2018. Testing performed by: [address] [address] Albumin Creatinine Ratio, Ur <16 1 - 29 mg/g SERANER [facility] (BEHZAD) Comment:Testing performed by : [address] [address] Urine 07/30/2023 8:51 AM CLOTH TESTER QUALITY 07/30/2023 10:55 AM CLOTH TESTER QUALITY Rocio Wu FASHION STYLING INTERN LAB URINE ORDERABLES Final R esult SERASUSAN [facility] ([place]HZAD) 1 [facility] [place] [address] * Lipid panel (07/30/2023 8:51 AM CLOTH TESTER QUALITY) Cholesterol 91 30 - 199 mg/dL [facility] ([place]HZAD) Comment: Interpretive Data Ages < [...] revised on 2018. Triglycerides 42 <=149 mg/dL [facility] ([place]HZAD) Comment: Interpretive Data Ages < [...] revised on 2018. Chol/HDL ratio 2 [place] [facility] RAJIV (BEHZAD) Blood 07/30/2023 8:51 AM CLOTH TESTER QUALITY 07/30/2023 10:12 AM CLOTH TESTER QUALITY Rocio Wu FASHION STYLING INTERN LAB BLOOD ORDERABLES Final R esult ERICK RAJIV ([place]) 1 [facility] [place] [address] from Last 3 Months or Most Recently Relevant to Health Maintenance Insurance [facility] MEDICARE ADVANTAGE IDNV [facility] MEDICARE ADVANTAGE IDPA Care Teams Ball Holder Relationship Specialty Start Date End Date Henry Ruiz DO PCP - General Internal Medicine 12/09/21 Nicholas Peacock MD [address] [facility] [address] [place] [address] Surgeon Neurosurgery 02/19/22 Lolita Colon MD [address] [facility] [place] [address] Consulting Physician Internal Medicine 05/16/24
--- OUTSIDE RECORDS SUMMARY | 2024-10-11 18:04 | XMS_ITS | Encounter Summary ---
Author Organization [facility] Address [address] [place] [address] Care Team Providers Care Duplication Specialist Name Role Phone Henry Ruiz DO Primary Care Provider [phone] Encounter Details Date Type Department Care Team (Latest Contact Info) Description 07/19/2021 2:23 PM SUPERVISOR INTERNATIONAL RESERVATIONS Hospital Encounter [address] [address] Katie Tran MD [employer] [...] on file Legal Sex Female 12:37 PM SUPERVISOR INTERNATIONAL RESERVATIONS Gender Identity Not on file Sexual Orientation Not on file Occupation Industry Job Start Date Job End Date DISABLED Not on file Not on file Not on file COVID-19 Exposure Response Date Recorded In the last 10 days, have low u been in contact with someone who was confirmed or suspected to have Coronavirus/COVID-19? No / Unsure 11/25/2022 11:59 AM CDT documented as of this encounter Functional Status * Is person deaf or have serious hearing difficulty? Answer Date of Assessment Author No 07/05/2021 5:51 AM Miguel Lynn RN * Is person blind or have serious difficulty seeing? Answer Date of Assessment Author No 07/05/2021 5:51 AM Miguel Lynn RN * Does person have serious difficulty walking/climbing stairs? Answer Date of Assessment Author No 07/05/2021 5:51 AM Miguel Lynn RN * Does person have difficulty dressing/bathing? Answer Date of Assessment Author No 07/05/2021 5:51 AM Miguel Lynn RN * Does person have difficulty doing errands alone? Answer Date of Assessment Author No 07/05/2021 5:51 AM Miguel Lynn RN documented as of this encounter Mental Status * Does person have difficulty concentrating/remembering/making decisions? Answer Entry Date Author No 07/05/2021 5:51 AM Miguel Lynn RN documented in this encounter Plan of Treatment Upcoming Encounters Date Type Department Care Team (Late st Contact Info) Description 05/04/2025 11:00 AM SUPERVISOR INTERNATIONAL RESERVATIONS Office Visit [facility] [id number] [address] Blanca Kamara, TRANSPLANT IMMUNOLOGISTSEAT JOINER [address] [facility] [address] [place] [address] documented as of this encounter Goals Goal Patient Goal Type Associated Problems Recent Progress Patient-Stated? Author Medication Management General On track( 022 1:05 PM CDT) No Tu Roes, VU Note: Expected end date: ongoing Interventions: Take all medications as prescribed Let your doctor know right away about any changes in your medications Make sure to request a refill of your medication at least one week prior to your last dose documented as of this encounter Visit Diagnoses Not on filedocumented in this encounter Care Teams Duplication Specialist Relationship Specialty Start Date End Date Henry Ruiz DO PCP - General Internal Medicine 10/12/15 documented as of this encounter
--- OUTSIDE RECORDS SUMMARY | 2024-10-11 18:06 | XMS_ITS | CONTINUITY OF CARE DOCUMENT ---
Author Name priscila, priscila Address Unknown Organization [facility] Address [address] [place] [address] Phone [phone] Care Team Providers Care Structural Analysis Engineer Name Role Phone Abelino Ny MD Unavailable [phone] WILLIAM MELENDEZ DO Unavailable [phone] WILLIAM MELENDEZ DO Unavailable [phone] PROBLEMS Condition Status Date Provider Notes HTN-02/06 [...] In-person encounter Office Visit Abelino Ny MD [facility] CHEST PAIN-04/2014 NUC NEG EF60% - 02/03 NUC ISCHEMIACHOLECYSTECTOM Y, HX OF MAY 2010GERD - In-person encounter Office Visit Abelino Ny MD [facility] Bilateral leg Edema - In-person encounter Office Visit Cameron Ramírez MD [facility] - In-person encounter Office Visit Abelino Ny MD [facility] OBESITY- s/p lap band revision - In-person encounter Office Visit Abelino Ny MD [facility] - In-person encounter Office Visit Abelino Ny MD [facility] OBESITY- s/p lap band revision - In-person encounter Office Visit Abelino Ny MD [place] [facility] Family History of Hypertension: - In-person encounter Office Visit Abelino Ny MD [facility] - In-person encounter Office Visit Abelino Ny MD [facility] - In-person encounter Office Visit Abelino Ny MD [facility] PE, HX OFPREOPERATIVE CARDIOVASCULAR EXAMINATIONCAD-02/03 CATH NO CADDVT-09/07 SHIV DOP NEG - In-person encounter Office Visit Abelino Ny MD [facility] OBESITY- s/p lap band revision - In-person encounter Office Visit Abelino Ny MD [facility] - In-person encounter Office Visit Abelino Ny MD [facility] - In-person encounter Office Visit Abelino Ny MD [facility] POLYCYSTIC OVARIAN DISEASE REMOVED MAY 2010 - In-person encounter Office Visit Abelino Ny MD [facility] - In-person encounter Office Visit Abelino Ny MD [facility] - In-person encounter Office Visit Abelino Ny MD [facility] HTN-02/06 ECHO EF 60-06/04 ECHO EF 60CHEST PAIN-04/2014 NUC NEG EF60% - 02/03 NUC ISCHEMIA - In-person encounter Office Visit Gary Angeles MD [facility] VITAL SIGNS Date Observation Value Provider Body Mass Index (Ratio) 35.77 kg/m2 Manjeet Carcamote blood pressure, diastolic 70 mm[Hg] Kr isty Amity blood pressure, systolic 110 mm[Hg] Kri sty Leonela oxygen saturation, oximetry 98 % Kena Leonela respiratory rate E&M 17 /min Kena Amity pulse rate 82 /min Kena Amity blood pressure, cuff size regular Kr alexandra Leonela weight E&M 215 [lb_av] Kena Amity height E&M 65 [in_i] Kena Leonela Body Mass Index (Ratio) 33.11 kg/m2 Scottie Ny MD oxygen saturation, oximetry 99 % [facility] pulse rate 83 /min [facility] Kelli blood pressure, diastolic 70 mm[Hg] [...] MD blood pressure, diastolic 80 mm[Hg] [facility], systolic 110 mm[Hg] Kil sergio [place] oxygen saturation, oximetry 98 % [facility] respiratory rate E&M 16 /min [facility] pulse rate 81 /min [facility] weight E&M 189 [lb_av] [facility] height E&M 65 [in_i] [facility] Body Mass Index (Ratio) 44.59 kg/m2 Scottie Ny MD blood pressure, cuff size large Ke rri Conchis blood pressure, diastolic 84 mm[Hg] Ke rri Conchis blood pressure, systolic 132 mm[Hg] Maura Balderrama oxygen saturation, oximetry 99 % Bebe Balderrama respiratory rate E&M 18 /min Bebe patel pulse rate 78 /min Bebe [facility] weight E&M 268 [lb_av] Bebe [facility] height E&M 65 [in_i] Bebe Arun lder [...] (Ratio) 48.25 kg/m2 Xochilt Lindseyoney blood pressure, rgeer tolic, second observation 90 mm[Hg] Lorie Lindseyoney [...] Shan hawa Taylor pulse rate 95 /min [facility] oxygen saturation, oximetry 98 % [facility] respiratory rate E&M 16 /min [facility] weight E&M 262.25 [lb_av] Krystian shaikh [...] patel weight E&M 281 [lb_av] Bebe Di[facility] height E&M 65 [in_i] [facility] blood pressure, diastolic, left arm 110 m m[Hg] Shanhawa Taylor blood pressure, systolic, left arm 159 mm [Hg] Shanhawa Taylor blood pressure, diastolic, right arm 137 mm[Hg] Shanhawa Taylor blood pressure, systolic, right arm 170 m m[Hg] Shanhawa Taylor blood pressure, diastolic 110 mm[Hg] Fleming Taylor blood pressure, systolic 159 mm[Hg] Shan de la cruz Taylor pulse rate 99 /min [facility] oxygen saturation, oximetry 96 % [facility] respiratory rate E&M 18 /min [facility] weight E&M 286 [lb_av] Shanhawa Taylor blood pressure, diastolic 95 mm[Hg] Fleming Taylor blood pressure, systolic 140 mm[Hg] Shan de la cruz Taylor pulse rate 85 /min [facility] oxygen saturation, oximetry 99 % [facility] respiratory rate E&M 16 /min [facility] weight E&M 272 [lb_av] Shanhawa Taylor blood pressure, diastolic, left arm 80 mm [Hg] Shanyehawa Taylor blood pressure, systolic, left arm 120 mm [Hg] [facility] blood pressure, diastolic, right arm 88 m m[Hg] Shanhawa Taylor blood pressure, systolic, right arm 123 m m[Hg] [facility] oxygen saturation, oximetry 99 % [facility] blood pressure, diastolic 98 mm[Hg] Pimenteleadestiney Taylor [...] [employer] 3.5-5.1 sodium, serum 141 mmol/L [employer] [id number] 1491/09/ 28 creatinine, serum 0.7 mg/dL [facility] 0.5-0.9 carbon dioxide, venous blood 28 mmol/L [employer] 22-29 albumin, serum 4.7 g/dL [facility] 3.5-5.2 calcium, serum 9.7 mg/dL [facility] 8.6-10.2 aspartate aminotransferase (SGOT), serum 25 1/L [facility] 0-32 alkaline phosphatase, serum 85 1/L [facility] 40-130 alanine aminotransferase (SGPT), serum 27 1/L [facility] 0-33 protein, total, serum 7.8 g/dL [facility] 6.6-8.7 bilirubin, serum, total 0.3 mg/dL [facility] 0.0-1.2 urea nitrogen, blood 14 mg/dL [facility] 6-20 blood glucose, random 94 mg/dL [facility] 74-99 platelet count 255 10*3/mm3 [facility] hematocrit, blood 42.1 % [facility] international normalized ratio (INR) 1.0 [facility] D-dimer quantitative mcg/mL 372 ug/mL [facility] alanine aminotransferase (SGPT), serum 52 1/L [facility] aspartate aminotransferase (SGOT), serum 25 1/L [facility] creatinine, serum 1.07 mg/dL [facility] potassium, serum 3.2 mmol/L [facility] sodium, serum 139 mmol/L [facility] HISTORY OF MEDICATION USE Medication Status [...] every 4-6 hours NEEDED 07/17 - 07/27 [facility] VU METFORMIN HCL 500 [...] PARTICLES active 1 tab daily 07/26 Esteban [place] HYDROCODONE-ACETAMI NOPHEN 7.5-650 MG ORAL TABLET completed [...] Smoking History: P atcassandra has never smoked. Ableino Ny MD social history reviewed E&M josefina [...] yes Chastity Kelli smoking status [facility] e social history E&M Marital Statu s: L shoaib with family/friends E thnicity: Smoking History: Naren ames has never smoked. Cameron Ramírez MD social history reviewed E&M revi ewed - no changes required Cameron Rmaírez MD physical exercise, f requency, days per week no Jocelyn Block alcohol use, average drinks per day none [facility] alcohol use no Jocelyn Block caffeine use, averag e drinks per day yes [facility] drug use none [facility] passive cigarette sm rodríguez exposure yes [facility] smoking status Never smoker [facility] social history E&M Marital Statu s: L shoaib with family/friends E thnicity: Smoking History: Naren ames has never smoked. Abelino Ny MD social history reviewed E&M revi ewed - no changes required Abelino Ny MD physical exercise, f requency, days per week no Esteban Gonzalez alcohol use, average drinks per day none [facility] Gonzalez alcohol use no Pho[facility] Gonzalez caffeine use, averag e drinks per day yes Esteban Gonzalez drug use none Esteban Gonzalez passive cigarette sm rodríguez exposure yes [facility] smoking status Never smoker [facility] social history reviewed E&M revi ewed - no changes required Aeblino Ny MD number of grandchildren Abelino Ny [...] person. Mood and affect are normal. James Wledon RN assessment of judgme nt and insight [...] Payer name Policy type / Coverage type Fine red democrat ID [employer] [id number] HEALTHCARE AND FAMILY SERVICES Medicaid 0 [id number] ADVANCE DIRECTIVES Name Date DISCUSSED - NO [...] opted to wait and meet with a land developer prior to undergoing any further testing. [...] She continues to follow Bariatric Surgery at [facility]. She continues to follow them and there [...] up: O rders: S TR - Adenosine (03773) C omplete Echo (CPT-31065) Abelino Ny MD follow up: O rders: S TR - Adenosine (30479) C omplete Echo (CPT-99384) Abelino Ny MD follow up: H er updated medication list for this problem includes: Metoprolol Tartrate Tabs (Metoprolol tartrate tabs) ..... 1 tab twice Orders: S TR - Adenosine (80280) C omplete Echo (CPT-92920) Abelino Ny MD follow up: O rders: S TR - Adenosine (11176) C omplete Echo (CPT-80627) Abelino Ny MD follow up: H er updated medication list for this problem includes: Metoprolol Tartrate Tabs (Metoprolol tartrate tabs) ..... 1 tab twice Orders: S TR - Adenosine (42622) C omplete Echo (CPT-90713) Abelino Ny MD follow up: H er updated medication list for this problem includes: Nitrostat 0.4 Mg Subl (Nitroglycerin) ..... One tab. under tongue as needed. may repeat twice in 10 minutes. Metoprolol Tartrate Tabs (Metoprolol tartrate tabs) ..... 1 tab twice Orders: E KG (CPT-20265) S TR - Adenosine (92711) C omplete Echo (CPT-29783) Abelino Ny MD office visit: T he [...] clearanc e for lap band surgery in [place], [place]. will order an adenosine myoview and [...] EKG Abelino Ny MD complet ed SNOMED-CT: 499928189 788737 Current Medications Documented Abelino Ny MD completed SNOMED-CT: 201032356 Smoking Cessation Counseling Abelino Ny MD completed SNOMED-CT: 32721949 Physical Exam, Performed: Pulse Exam of Foot Abelino Ny MD completed EKG Abelino Ny MD complet ed SNOMED-CT: 292454393 667987 Current Medications Documented Abelino Ny MD completed EKGalen Ny MD complet ed EKG Abelino Ny MD complet ed EKGalen Ny MD complet ed ePrescribe - Check t his box if eRx is used Abelino Ny MD completed EKG Abelino Ny MD complet ed EKG Abelino Ny MD complet ed EKGalen Ny MD complet ed
[2024-10-11 18:07] VITALS: BP 123/75; PULSE 87; RESP 20; TEMP 36.9; O2SAT 98
--- NOTE | 2024-10-11 18:56 | ED.URI ---
HPI - URI/Sore Throat General Chief Complaint: Upper Respiratory Infection Stated Complaint: sore throat/hernandez/cough/ears clogged Time Seen by Provider: 10/11/24 18:30 Source: patient, RN notes reviewed and old records reviewed Mode of arrival: ambulatory Limitations: no limitations History of Present Illness HPI Narrative: 43 year old female who presents to express care with complaints of cough, headache,ear pain, runny nose,chest congestion since Thursday. Patient reports that symptoms started after exposure to sick child. Ppatient reports that she does have history of asthma. Patient reports no known fevers has been taking some Tylenol for her discomfort. MD elicited complaint: cough, sore throat, rhinorrhea and nasal congestion Pertinent past history: asthma Onset (ago): day(s) (4-5 days) Severity: moderate Able to tolerate fluids by mouth: Yes Treatments prior to arrival: acetaminophen Related Data Home Medications ?Medication ?Instructions ?Recorded ?Confirmed ?Last Taken ?Type lactobacillus combination no.8 3 3,000 mmu cells PO DAILY 06/08/19 09/26/24 Unknown History billion cell capsule (Adult Probiotic) sennosides 8.6 mg-docusate sodium 1 tab-cap PO QHS 08/13/21 09/26/24 Unknown History 50 mg tablet biotin 5,000 mcg disintegrating 5,000 mcg PO DAILY 12/09/21 09/26/24 Unknown History tablet updufqnvvv-jxuolixutcbha-whctinoy 1 cap PO TID PRN 12/09/21 09/26/24 Unknown History 50 mg-325 mg-40 mg capsule calcium 315 mg (as 1 tablet PO DAILY 12/09/21 09/26/24 Unknown History citrate)-vitamin D3 5 mcg (200 unit) tablet (Calcium Citrate + D) vitamin C 30 mg-zinc citrate 1.1 1 tablet PO .qd 12/09/21 09/26/24 Unknown History mg-elderberry 25 mg chewable tablet (Sambucus Elderberry) dexlansoprazole 30 mg 30 mg PO DAILY 05/16/22 09/26/24 Unknown History capsule,biphase delayed release ferrous sulfate 325 mg (65 mg 325 mg PO DAILY 11/18/22 09/26/24 Unknown History iron) tablet phytonadione (vitamin K1) 5 mg 5 mg PO DAILY 11/18/22 09/26/24 Unknown History tablet vitamin E (dl, acetate) 45 mg (100 45 mg PO DAILY 11/18/22 09/26/24 Unknown History unit) capsule linaclotide 145 mcg capsule 145 mcg PO DAILY PRN 08/06/23 09/26/24 Unknown History (Linzess) oxycodone 10 mg tablet 10 mg PO Q8H PRN 02/04/24 09/26/24 Unknown History Allergies Allergy/AdvReac Type Severity Reaction Status Date / Time ketorolac (From Toradol) Allergy Unknown Unknown Verified 10/11/24 18:18 NSAIDS (Non-Steroidal Allergy Weight Verified 10/11/24 18:18 Anti-Inflamma Loss Surgery morphine AdvReac Mild Itching Verified 10/11/24 18:18 Review of Systems Review of Systems: CONSTITUTIONAL: Reports malaise, chills, sweats, or fever. EYES: Denies visual changes, redness, or discharge. ENT: Reports rhinorrhea, congestion, sinus pain, otalgia and sore throat. CARDIOVASCULAR: Denies chest pain, palpitations, or edema. RESPIRATORY: Reports cough.? Denies dyspnea. GASTROINTESTINAL: Denies abdominal pain, nausea, vomiting, diarrhea SKIN: Denies rash or itching. MUSCULOSKELETAL: reports myalgia. NEUROLOGIC: reports headache. All systems reviewed & are unremarkable except as noted in HPI and below PMFSH Past Medical History Medical History Anaphylactic reaction Hyperlipidemia Hypertension Brain aneurysm Right knee pain Tumors Hemorrhoids Heartburn Depression History of blood clots Allergies Migraine headache Herniated disc Arthritis Diarrhea Constipation Pneumonia Chronic bronchitis Asthma HTN (hypertension) Chicken pox Hernia Ovarian mass removed Surgical History Surgical History History of brain surgery History of knee surgery both H/O toe surgery 04/12/2021 H/O hernia repair 04/2022 hernia repair stomach History of removal of laparoscopic gastric banding device Family History Family History Sibling Hypertension Mother Hypertension History of varicose veins Gout Father No problems noted. Other Diabetes mellitus Family history of allergic disorder Family history of malignant neoplasm of male breast Social History Social History Smoking status: Never smoker Second hand tobacco smoke exposure: Yes Alcohol intake: former Substance use: current Substance use type: opiates Last use: for chronic back pain Do You Feel Safe in your Home?: Yes Lack of Transportation: YES Lack of Food: Never True Current Housing: I Have Housing Concerned About Future Housing: No Difficulty Paying Gas/Electric Bills: Decline to Answer Difficulty Paying for Meds: Decline to Answer Currently Unemployed: No Education: Associate Degree Difficulty w/ Childcare or Family Care: No Living arrangements: with family Occupation/Education: unemployed 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 There is no relevant family history pertinent to the presenting complaint Exam Narrative: GENERAL: Ill-appearing, well-nourished, and in no acute distress. HEAD: Normocephalic EYES: PERRLA, conjunctivae clear ENT: Nares clear, turbinates edematous and erythematous, clear discharge. Mucous membranes moist. TM pearly lopez with dull light reflex bilaterally; no tragal tenderness. Oropharynx erythematous without lesions. Tonsils not present and throat without exudate, no drooling, no hoarseness, no trismus, uvula midline.post nasal drainage NECK: Supple. lymphadenopathy CHEST: Clear to auscultation, breath sounds equal. No wheezing, rhonchi, rales, or stridor. No respiratory distress, speaks in full sentences.cough at times productive SAO2 98% on room air HEART: Regular rate and rhythm. No murmur heard. SKIN: Warm, dry, no rash. NEURO: Alert and oriented x3. PSYCH: Normal mood and affect Course Course Emergency Course: Patient is aware of diagnosis, understands and agrees to treatment plan.? Anticipatory guidance given.? Patient agrees to follow-up as directed and is aware of reasons to seek care at the emergency department. Portions of this record may have been created with voice recognition software Level of Care: Express Care Visit Vital Signs Vital signs: Vital Signs Temperature 36.9 C 10/11/24 18:07 Pulse Rate 87 10/11/24 18:07 Respiratory Rate 20 10/11/24 18:07 Blood Pressure 123/75 10/11/24 18:07 Pulse Oximetry 98 10/11/24 18:07 Oxygen Delivery Room Air 10/11/24 18:07 Temperature 36.9 C 10/11/24 18:07 Pulse Rate 87 10/11/24 18:07 Respiratory Rate 20 10/11/24 18:07 Blood Pressure 123/75 10/11/24 18:07 Pulse Oximetry 98 10/11/24 18:07 Oxygen Delivery Room Air 10/11/24 18:07 Reviewed MDM - URI/Sore Throat MDM Narrative Medical decision making narrative: Differential diagnosis considered: Andrade virus, strep pharyngitis, allergic rhinitis, upper respiratory tract infection, sinusitis, rhinosinusitis, nasopharyngitis. viral pharyngitis, otitis media, otitis externa, pneumonia, bronchitis, viral cough syndrome, viral syndrome, and influenza.? Exam findings show no acute concerns or changes; patient is non-toxic appearing and is in no distress.? Patient is appropriate for outpatient treatment and follow-up. Differential Diagnosis Differential diagnosis: Likely upper respiratory infection, otitis media, sinusitis, viral infection, influenza, pharyngitis and other (strep pharyngitis, acute cough) Medical Records Attestation: I reviewed the patient's medical records. Lab Data Attestation: I reviewed the patient's lab results. Lab results narrative: COVID antigen negative, Influenza A negative, Influenza B negative, Strep screen negative, culture sent Labs: Lab Results 10/11/24 Range/Units 18:17 POC Influenza A Ag Negative (Negative) POC Influenza B Ag Negative (Negative) POC SARS CoV-2 Ag Negative (Negative) POC Grp A Strep Screen Negative (Negative) Critical Care Time Critical Care Time Critical Care Time: No Discharge Plan Discharge Clinical Impression: URI with cough and congestion Patient Disposition: Home Condition: Stable Instructions: Antibiotic Form, Upper Respiratory Infection (ED), Acute Cough (ED) Additional Instructions: Increase fluids especially juices and water Qhtg-vxg-pwsvpsf cough and cold medicine of your choice for your symptoms Zyrtec Claritin or Viola daily Continue your inhaler/nebulizer as directed Steroids as directed--take with food heat to the face 20-30 minutes 4-6 times a day for pain Salt water gargles, throat lozenges or throat sprays as desired Antibiotic as directed--finished the medication If your symptoms persist, change or worsen significantly before you can contact your personal physician then please, without delay, go to the emergency department for further evaluation. Follow-up with PCP in 7-10 days or sooner if needed Patient Language: Panamanian Prescriptions: New amoxicillin-pot clavulanate 875-125 mg tablet 1 tablet PO Q12H Qty: 20 0RF albuterol sulfate [Ventolin HFA] 90 mcg/actuation HFA aerosol inhaler 2 puff inhalation QID PRN (Reason: shortness of breath or wheezing) Qty: 6.7 0RF prednisone 20 mg tablet 20 mg PO BID 5 Days Qty: 10 0RF No Action Adult Probiotic 3 billion cell capsule 3,000 mmu cells PO DAILY Linzess 145 mcg capsule 145 mcg PO DAILY PRN sennosides-docusate sodium 8.6-50 mg tablet 1 tab-cap PO QHS ttjrxdkdac-xmfryrbvvdxbj-mycs 50-325-40 mg capsule 1 cap PO TID PRN Patient Comments: prescribed by Dr. Darling, Pain Management Sambucus Elderberry 30-1.1-25 mg tablet,chewable 1 tablet PO .qd biotin 5,000 mcg tablet,disintegrating 5,000 mcg PO DAILY calcium citrate-vitamin D3 [Calcium Citrate + D] 315 mg-5 mcg (200 unit) tablet 1 tablet PO DAILY dexlansoprazole 30 mg capsule,biphase delayed releas 30 mg PO DAILY vitamin E (dl, acetate) 45 mg (100 unit) capsule 45 mg PO DAILY phytonadione (vitamin K1) 5 mg tablet 5 mg PO DAILY ferrous sulfate 325 mg (65 mg iron) tablet 325 mg PO DAILY nystatin 100,000 unit/gram cream 1 applic topical BID Qty: 30 1RF oxycodone 10 mg tablet 10 mg PO Q8H PRN Rx Instructions: PRESCRIBED BY PM [employer]ovig Autoinjector 140 mg/mL auto-injector 140 mg subcut MONTHLY Qty: 3 2RF atorvastatin 40 mg tablet See Rx Instructions .ROUTE .COMPLEX Qty: 90 1RF Dose Instruction: TAKE 1 TABLET BY MOUTH DAILY Rx Instructions: TAKE 1 TABLET BY MOUTH DAILY lisinopril 5 mg tablet 5 mg PO DAILY Qty: 90 1RF hydroxyzine HCl 10 mg tablet See Rx Instructions .ROUTE .COMPLEX Qty: 60 1RF Dose Instruction: TAKE 1 TABLET BY MOUTH TWICE DAILY NEEDED FOR ITCHING Rx Instructions: TAKE 1 TABLET BY MOUTH TWICE DAILY NEEDED FOR ITCHING duloxetine 60 mg capsule,delayed release(DR/EC) See Rx Instructions .ROUTE .COMPLEX Qty: 90 1RF Dose Instruction: TAKE 1 CAPSULE BY MOUTH DAILY Rx Instructions: TAKE 1 CAPSULE BY MOUTH DAILY pantoprazole 40 mg tablet,delayed release (DR/EC) See Rx Instructions .ROUTE .COMPLEX Qty: 90 1RF Dose Instruction: TAKE 1 TABLET BY MOUTH EVERY DAY AT BEDTIME Rx Instructions: TAKE 1 TABLET BY MOUTH EVERY DAY AT BEDTIME duloxetine [Cymbalta] 20 mg capsule,delayed release(DR/EC) 20 mg PO DAILY Qty: 90 1RF Patient Comments: take with a 60mg cap Follow-up/Referrals: Henry Ruiz DO [Primary Care Provider] - Time of Disposition: 19:05 Quality [place] Coma Scale Eyes: Open Verbal: Oriented and Alert Motor: Follows Commands Caroline Coma Total Score: 15
[2024-10-11 19:15] LABS: EDINFLUASCREEN Negative (Negative); EDINFLUBSCREEN Negative (Negative)
[2024-10-11 19:17] LABS: EDCOVIDSCREEN Negative (Negative); EDSTREPNEGPOS1 Negative (Negative)
== END 2024-10-11 19:10 | disposition home or self-care (01) ==
PROVIDERS: Emergency Provider Registered Nurse; PCP Internal Medicine
DX: J06.9 Acute upper respiratory infection, unspecified (principal); R05.9 Cough, unspecified; Z20.822 Contact with and (suspected) exposure to COVID-19; I10 Essential (primary) hypertension; E78.5 Hyperlipidemia, unspecified; M19.90 Unspecified osteoarthritis, unspecified site; J45.909 Unspecified asthma, uncomplicated; Z86.2 Personal history of diseases of the blood and blood-forming organs and certain disorders involving the immune mechanism; R12 Heartburn; F32.A Depression, unspecified
CPT/HCPCS: 87081; 87426; 87804; 87880; 99213; G0463

== ENCOUNTER 2024-10-19 09:50 | Outpatient (CLI) | payer MEDICARE, MEDICAID, SELFPAY ==
--- NOTE | 2024-10-19 09:30 | ECG_ITS ---
Test Date: 2024-10-19 10:04:05 Measurements Intervals Mittie Rate: 82 P: 38 AR: 164 QRS: -14 QRSD: 86 T: 19 QT: 376 QTc: 440 Interpretive Statements SINUS RHYTHM BORDERLINE R WAVE PROGRESSION, ANTERIOR LEADS BASELINE ARTIFACT- I, II, III, AVR, AVL, AVF, V1-V6 BORDERLINE ECG No previous ECG available for comparison Electronically Signed On 10-19-2024 10:07:07 CDT by Hair Rae D.O.
[2024-10-19 10:44] LABS: Hematocrit 42.6 % (37.0-47.0); Hemoglobin 12.6 g/dL (12.0-15.0)
--- OUTSIDE RECORDS SUMMARY | 2024-10-19 11:05 | XMS_ITS | Clinical Summary ---
Author Organization [facility] Address [facility] [place] [address] Care Team Providers Care Respiratory Care Specialist Name Role Phone Unavailable Primary Care Provider [...]
--- OUTSIDE RECORDS SUMMARY | 2024-10-19 11:05 | XMS_ITS | Encounter Summary ---
Author Organization [facility] Address [address] [place] [id number] Care Team Providers Care Press Tender Incendiary Grenade Name Role Phone Unavailable Primary Care Provider Unavailabl e Encounter Details Date Type Department Care Team (Late st Contact Info) Description 12/04/2018 Abstract SFL CONVERSION [address] [place] [address] , Generic Conversion, Social History Tobacco Use [...]
--- OUTSIDE RECORDS SUMMARY | 2024-10-19 11:06 | XMS_ITS | Data Portability ---
Author Organization [place] - [facility] [employer], Main Office Address [address] [place] [address] Care Team Providers Care Tube Depatcher Name Role Phone WILLIAM MELENDEZ Primary Care Provider [phone] WILLIAM MELENDEZ Referring Provider [phone] Assessment Encounter Date Assessment Date Assessment LastModified [...] a dose pack 2022 023 [address], [address], [place], [place], [id number], 3 13:39:32 Patient TargetsNo targets recorded. Patient [...] provi ders and patie nts at the [facility] te: https ://gl oalpo intof care. abbot t/en/ produ ct-de tails /id-n ow-co vid-1 9.htm l Metho dolog y: Isoth ermal Nucle ic Acid Ampli ficat ion Not Available [facility] (Lab) [address], [place], [address], 03/11/2021 15:05:04 02/08/20 21 XR, foot No observ ation record ed. [id number] [facility] [place] [address], [place], [address], 08/27/2022 12:59:30 02/13/20 21 XR, knee No observ ation record ed. [id number] [facility] [place] [address] [facility], [place], [address], 08/27/2022 12:59:30 03/28/20 XR, foot, 3 or more view No observ ation record ed. [id number] [facility] [address], [place], [address], 08/27/2022 12:59:30 04/18/20 21 XR, foot, 3 or more view No observ ation record ed. [id number] [facility] [address], [place], [address], 08/27/2022 12:59:30 12/18/19 23 emerg ency dept. [...] Details Recorded Time Bilateral arthritis of knees 2307360884464 108 Active 2019 Not Available [facility] 3 12:54:37 Hammer toe 748914364 Active 2020 Not Available [facility] 3 12:54:37 Fracture of bone 442237964 Active Not Available [facility] 3 12:54:37 Postoperat curtis visit 078782047 Active 2020 Not Available [facility] 3 12:54:37 Asthma 846871921 Active 2016 Not Available [facility] 3 12:54:37 Nonunion of fracture 716722786 Active Not Available [facility] 3 12:54:37 Knee pain Active Not Available [facility] 3 12:54:38 Pain in right foot 5966113611075 07 Active 2020 Not Available [facility] 3 12:54:38 Hypertensi ve disorder 61182918 Active 2016 Not Available [facility] 3 12:54:38 Osteoarthr itis 013622518 Active Not Available [facility] 3 12:54:38 Foot pain 15565601 Active 2020 Not Available [facility] 3 12:54:38 Derangemen t of knee 55755277 Active Not Available [facility] 3 12:54:38 Acid reflux 534997429 Active 2016 Not Available [facility] 3 12:54:38 Pain in limb 40939489 Active Not Available [facility] 3 12:54:38 Pain of left ankle joint 5882950998303 9103 Active 2022 Ange Alvarado [facility] [employer] 3 13:22:10 Pain of left knee joint 3060071268267 07 Active 2022 Omar Goodson MD [address], [address] , [facility] 3 13:37:30 Sprain of left ankle 9776017914910 9105 Active 2022 Omar Goodson MD [address] [address], [place], [address] , [employer] [facility] [employer] [facility] 3 13:37:37 Problem Notes None recorded. Procedures Surgical History Date Name Laterality Status Provider Name and Address Organization Details Recorded Time 2 Brain Surgery completed Ange Jenny [employer] 12/25/2022 13:19:36 [facility] 12/25/2022 13:19:57 Toe completed [facility] 12/25/2022 13:20:15 Imaging Results Imaging Date Name Status LastModified by [facility] Details LastModified Time 02/07/2021 XR, foot completed [id number] [facility] [address], [place], [address], 08/27/2022 12:59:30 02/12/2021 XR, knee completed [id number] 026 [facility] [address], [place], [address], 08/27/2022 12:59:30 03/28/2021 XR, foot, 3 or more view completed [id number] [facility] [address], [place], [address], 08/27/2022 12:59:30 04/18/2021 XR, foot, 3 or more view completed [id number] [facility] [address], [place], [address], 08/27/2022 12:59:30 12/17/2022 emergency dept. visit* completed [...] Name and Address Organization Details Recorded Time 80595 Non-stero idal anti-infl ammatory agent (product) medicatio n Not available Not available Not available 08/27/2022 77107 005 SNOMED Not Available [facility] 3 12:59:24 92583 morphine medicatio n Not available Not available Not available 12/25/2022 7052 RxNorm mouth ulcer s Ange Alvarado [facility], [place] [facility] [place] [facility] 3 13:09:00 Medications Name Sig Start [...] office by the doctor 12/25 completed NDC: 84701726 001 Not Available Not Available Not Available [...] Updated DateTime 02/12/2021 40.7 kg/m2 170.18 cm 640667.02 g Not Available [employer] 08/27/2022 12:53:39 Date Recorded Body mass index (BMI) Body height Heart rate Body weight Systolic blood pressure Diastolic blood pressure Provider Name and Address Organization Details Last Updated DateTime 1 40.7 kg/m2 170.18 cm 88 /min 208221. 02 g 140 mm[Hg] 110 mm[Hg] Not Available [facility] 3 12:53:37 Date Recorded Body mass index (BMI) Body height Heart rate Body weight Systolic blood pressure Diastolic blood pressure Provider Name and Address Organization Details Last Updated DateTime 1 40.7 kg/m2 170.18 cm 88 /min 322919. 02 g 140 mm[Hg] 110 mm[Hg] Not Available [facility] 3 12:53:37 Date Recorded Body mass index (BMI) Body height Body weight Provider Name and Address Organization Details Last Updated DateTime 04/18/2021 40.7 kg/m2 170.18 cm 239728.02 g Not Available [facility] 08/27/2022 12:53:39 Date Recorded Body height Body mass index (BMI) Body weight Provider Name and Address Organization Details Last Updated DateTime 12/25/2022 170.18 cm 35.2 kg/m2 899569.28 g Ange Alvarado [facility] [employer] [facility] 12/25/2022 13:07:53 Social History Question Answer Notes LastModified by Organizat ion Details LastModified Time Tobacco Smoking Status Never Smoker Not Available [facility] 08/27/2022 12:52:22 What Is Your Level Of Alcohol Consumption? None [id number] Information not available 08/27/2022 Have You Recently Traveled Abroad? No [id number] 26 Information not available 08/27/2022 Sex: Unknown Functional Status None recorded. Mental Status None recorded. Family History Relationship Description Onset Age of this Age Resolved Age Notes LastModified by Organization Details LastModified Time Mother Kidney disease [id number] Not available 08/27/2022 12:52:31 Medical History Condition Response HAVE YOU BEEN HOSPITALIZED OR SEEN IN PSYCHIATRIC IN THE PAST YEAR ? Y ARTHRITIS Y USE OF BLOOD THINNERS Y BLOOD CLOTS Y HEADACHES/MIGRAINES Y HYPERTENSION Y ANEMIA/BLOOD DISORDER Y Gynecological HistoryNo gynecological history recorded. Obstetrics History GPAL:G 0 P 0 0 0 0 Past Encounters Encounter ID Performer Location Encounter Start Date Encounter Closed Date Diagnosis/Indication Diagnosis SNOMED-CT Code Diagnosis ICD10 Code Diagnosis Note [id number] [facility] [place] [address] [place] [address] 02/07/2021 00:00:00 02/08/2021 09:16:25 [id number] [facility] [place] [address] [place] [address] 02/12/2021 00:00:00 02/12/2021 12:05:36 [id number] [facility] [place] [address] [place] [address] 03/21/2021 00:00:00 03/24/2021 14:39:24 [id number] [facility] [place] [address] [place] [address] 03/28/2021 00:00:00 03/28/2021 15:42:50 [id number] [facility] [place] [address] [place] [address] 04/18/2021 00:00:00 04/22/2021 10:37:35 [id number] Omar Goodson MD [facility] [place] [address] [place] [address] 12/25/2022 12:36:13 12/25/2022 13:37:49 Pain of left ankle joint 0640081477 2794898 M25.572 Sprain of left ankle 325 6493699 5200559 S93.402A Pain of le ft knee joint 9760162875 19419 M25.562 Health Concerns Section Related Observation LastModified by Organization Detai ls LastModified Time None Recorded Concern Status LastModified by Organization Details LastModified Time None Recorded Advance Directives Directive None Recorded Payers Encounter Date Sequence Insurance Name Policy Number Policy Ramirez Covered Member ID Ramirez Member ID Guarantor Name 12/25/2022 1 [facility] (MEDICARE REPLACEMENT/AD VANTAGE - PPO) [id number] Dory Barnes [id number] Dory Barnes 12/25/2022 2 [place] WHEN MEDICARE OR MEDICARE REPLACEMENT PRIMARY) Dory Barnes [id number] Dory Barnes Notes Date Note Type Note [...] her ankle are unremarkable. Omar Goodson MD [address] [place] [address], [place], [address], [place] [facility] [place] [facility] [employer] 12/25/2022 13:39:29 OBGyn Episode No OBEpisode recorded.
--- OUTSIDE RECORDS SUMMARY | 2024-10-19 11:06 | XMS_ITS | Clinical Summary ---
Author Organization [facility] Address [address] [place] [address] Care Team Providers Care Loss Mitigation Specialist Name Role Phone Henry Ruiz DO Primary Care Provider [phone] Source Comments [facility],non-owned Affiliates and Associated Physician Practices is amultiple site organization consisting of ambulatory clinics and hospital sitesin [place], [place], [place] and [place]. This disclosure is being madepursuant to the Care Everywhere program and may not contain all information available regarding this patient. Last updated 18.[facility] Allergies Active Allergy Reactions Criticality Noted Date [...] once daily 03/17/20 22 Active nystatin (Mycostatin) 002554 UNIT/GM cream Apply to affected area 2 [...] Department Care Team Description 08/30/2024 11:15 AM WEIGHT LOSS PHYSICIAN Office Visit [facility] - Neurosurgery [address] [facility] [place] [address] Nicholas Peacock MD Cerebral aneurysm (Primary Dx) 08/30/2024 9:25 AM WEIGHT LOSS PHYSICIAN - 08/30/2024 11:59 PM WEIGHT LOSS PHYSICIAN Hospital Encounter [facility] SC[facility] [address] [place] [address] Nicholas Peacock MD Discharge Disposition: Home or Self Care 08/30/2024 Travel 08/26/2024 Refill [facility] [address], [address] [place] [address] Hortensia Covington, OVEN HEATER-ANIMAL HUSBANDRY TECHNICIAN Refill Request from Last 3 Months Family [...] on file Legal Sex Female 12:37 PM WEIGHT LOSS PHYSICIAN Gender Identity Not on file Sexual Orientation Not on file Occupation Industry Job Start Date Job End Date DISABLED Not on file Not on file Not on file Last Filed Vital Signs Vital Sign Reading Time Taken Comments Blood Pressure 110/71 08/30/2024 11:35 AM WEIGHT LOSS PHYSICIAN Pulse 73 08/30/2024 11:35 AM WEIGHT LOSS PHYSICIAN Temperature 36.8 C (98.2 F) 08/30/2024 11:35 AM WEIGHT LOSS PHYSICIAN Respiratory Rate 14 12/14/2023 8:20 AM CDT Oxygen Saturation 98% 08/30/2024 11:35 AM WEIGHT LOSS PHYSICIAN Inhaled Oxygen Concentration - - Weight 70.8 kg (156 lb) 08/30/2024 11:35 AM WEIGHT LOSS PHYSICIAN Height 167.6 cm (5' 6 ) 08/30/2024 11:35 AM WEIGHT LOSS PHYSICIAN Body Mass Index 25.18 08/30/2024 11:35 AM WEIGHT LOSS PHYSICIAN Plan of Treatment Upcoming Encounters Date Type Department Care Team (Late st Contact Info) Description 05/04/2025 11:00 AM WEIGHT LOSS PHYSICIAN Office Visit [facility] Weight Management Services [address] [facility] [address] [place] [address] Blanca Kamara, OVEN HEATER-ANIMAL HUSBANDRY TECHNICIAN [address] [facility] [address] [place] [address] Health Maintenance Due Date Last [...] last dose Medical Devices Implanted Type Area Arbitrator Device Identifier Shelf Expiration Date Model / Serial / Lot Set Xtrn Drn 35cm 1.9mm 3-15cm Cath Inr Implanted:Qty: 1 on 07/08/2021 by Nicholas Peacock MD at [facility] N/A: Cranial [employer] 02/26/2022 82-1750 / / [id number] [employer] Titanium Aneurysm Clip Implanted:Qty: 1 on 07/08/2021 by Nicholas Peacock MD at [facility] Right: Cranial [facility] 17-001-33 / [id number] / 101-SD [employer] Titanium Aneurysm Clip Implanted:Qty: 1 on 07/08/2021 by Nicholas Peacock MD at [facility] Right: Cranial [facility] Se[facility] 17-001-87 / 38-TK / [id number] Graft Tissue Drgn + Bvn Clgn Mtrx 5x4in Implanted:Qty: 1 on 07/08/2021 by Nicholas Peacock MD at [facility] N/A: Cranial [employer] 01/27/2024 [id number] / / [id number] Plate 2 Hl Lopro Crnmxf 15mm Str Lucio Implanted:Qty: 2 on 07/08/2021 by Nicholas Peacock MD at [facility] N/A: Cranial [employer] 19-1005 / / Plate 4 Hl Lopro Crnmxf 22mm Lng Str Implanted:Qty: 1 on 07/08/2021 by Nicholas Peacock MD at [facility] N/A: Cranial [employer] -1045 / / Cover Bur Hl 13.5mm Spne Bnt Implanted:Qty: 2 on 07/08/2021 by Nicholas Peacock MD at [facility] N/A: Cranial [employer] 19-1019 / / Screw 1.5mm 4mm Slf Drl Xdr Crnmxf Implanted:Qty: 12 on 07/08/2021 by Nicholas Peacock MD at [facility] N/A: Cranial [employer] 91-6704 / / Explanted Type Area Arbitrator Device Identifier Shelf Expiration Date Model / Serial / Lot Cover Bur Hl 13.5mm Spne Bnt Explanted:Qty: 1 on 07/08/2021 by Nicholas Peacock MD at [facility] N/A: Cranial [employer] 19-1019 / / Screw 1.5mm 4mm Slf Drl Xdr Crnmxf Explanted:Qty: 1 on 07/08/2021 by Nicholas Peacock MD at [facility] N/A: Cranial [employer] 91-6704 / / [employer] Titanium Aneurysm Clip Explanted:Qty: 1 on 07/08/2021 by Nicholas Peacock MD at [facility] Right: Cranial [employer]und[employer] Stephenson 17-006-27 / [id number] / 24-TK Procedures Procedure Name Priority Date/Time Associated Diagnosis Comments CT ANGIO BRAIN Routine 08/30/2024 9:45 AM WEIGHT LOSS PHYSICIAN Cerebral aneurysm CREATININE - POCT INTERFACED Routine 08/30/2024 9:32 AM WEIGHT LOSS PHYSICIAN EYE EXAM 03/10/2022 HEPATITIS C ANTIBODY Routine 05/17/2021 10:52 AM WEIGHT LOSS PHYSICIAN Abnormal LFTs from Last 3 Months or Most Recently Relevant to Health Maintenance Results * CT ANGIO BRAIN (08/30/2024 9:45 AM WEIGHT LOSS PHYSICIAN) Anatomical Region Laterality Modality Head Computed Tomogra phy 08/30/2024 1:29 PM WEIGHT LOSS PHYSICIAN Impressions 08/30/2024 1:43 PM WEIGHT LOSS PHYSICIAN IMPRESSION: 1. No acute intracranial hemorrhage. Redemonstration of postoperative changes. 2. Accounting for the beam hardening and streak artifacts from the aneurysm clips, no evidence of a recurrent aneurysm in the right posterior cerebral artery. > Interpreting Provider: Sergo Ernst MD on 08/30/2024 1:43 PM Narrative 08/30/2024 1:43 PM WEIGHT LOSS PHYSICIAN PROCEDURE: CT ANGIO BRAIN, DATE/TIME OF EXAM: 08/30/2024 9:48 AM, LOCATION [facility] INDICATION: I67.1: Cerebral aneurysm (HCC) ADDITIONAL [...] DATE/TIME OF EXAM: 08/30/2024 9:48 AM, LOCATION [facility] INDICATION: I67.1: Cerebral aneurysm (HCC) ADDITIONAL [...] CREATININE - POCT INTERFACED (08/30/2024 9:32 AM WEIGHT LOSS PHYSICIAN) Pathologist [facility] Creatinine POCT 0.58 0.30 - 1.30 mg/dL 08/30/2024 9:33 AM [facility] eGFR >90 >=90 mL/min/1.7 3 m2 08/30/2024 9:33 AM [facility] Blood BLOOD SPECIMEN / Unknown 08/30/2024 9:32 AM WEIGHT LOSS PHYSICIAN 08/30/2024 9:33 AM WEIGHT LOSS PHYSICIAN us Nicholas Peacock MD LAB - POINT OF CARE ORDERABL ES Final Result Performing Organization Address City/State/[facility] Co de Phone Number [address] [address], [facility] [phone] * EYE EXAM (03/10/2022) Anatomical Region Laterality Modality Other Narrative 03/10/2022 Ordered by an unspecified provider. us Scanned Document SCANNING ONLY Final Result * HEPATITIS C ANTIBODY (05/17/2021 10:52 AM WEIGHT LOSS PHYSICIAN) Pathologist [facility] Hepatitis C Antibody Non-react curtis Non-reac tive 05/17/2021 12:48 PM WEIGHT LOSS PHYSICIAN [facility] Comment:Hepatitis C Antibody screen indicates no serologic evidence of past or current infection with Hepatitis C Virus. Patients with unexplained liver disease who are immunocompromised or suspected of having acute Hepatitis C infection may benefit from Nucleic Acid Test (MELL) for Hepatitis C Viral RNA to confirm Hepatitis C status. Blood BLOOD SPECIMEN / Unknown Lab Venipuncture / Unknown 05/17/2021 10:52 AM WEIGHT LOSS PHYSICIAN 05/17/2021 11:49 AM WEIGHT LOSS PHYSICIAN Ori Zarco MD LAB - CHEMISTRY YOLANDE FRAGA Final Result [facility] [address] [place] [address], [facility] [phone] from Last 3 Months or Most Recently Relevant to Health Maintenance Insurance MEDICAID - [place] [employer] MANAGED MEDICARE ADV MEDICAID [id number] Advance Directives * Full Code (Latest [...] 10:55 AM 12/02/2015 1:56 PM Care Teams Loss Mitigation Specialist Relationship Specialty Start Date End Date Henry Ruiz DO PCP - General Internal Medicine 10/12/15
--- OUTSIDE RECORDS SUMMARY | 2024-10-19 11:06 | XMS_ITS | Data Portability ---
Author Organization [facility] Address [address] [place] [address] Assessment No assessment recorded. Plan of Treatment Reminders Order Date Submit Date Provider Last Modified By Organization Details Last Modified Time Details Appointments None recorded. Lab bacterial vaginosis + vaginitis panel, vaginal 2018 019 E[facility], [address], [address], [place], [address], 9 14:13:24 HSV (1+2) DNA, qual, PCR, unspecifi ed specimen 2018 019 [facility], [address] [facility], [place], [address], 9 14:13:25 urinalysi s, dipstick 2018 019 chandler In-Office Order, Internal Use Only DO Not Attach Compendium DO Not Attach Compendium, Do Not Delete/merge, [id number] 9 10:35:16 hepatitis panel (A+B+C), acute, serum 2018 019 [facility], [address], [place], [address], 9 11:35:34 hepatitis B surface Ab, qualitati ve, serum 2018 019 [facility], [address], [place], [address], 9 11:35:35 HIV 1+2 AB + HIV 1 p24 Ag, qualitati ve immunoass ay, serum 2018 [facility], [address] [address], [place], [address], 9 11:35:37 treponema pallidum screen, serum, reflex confirmat ion 2018 [facility] (Centralized [facility] Order[facility] - All Locations), Patient Can Go To The Location Of Their Choice, [id number] 9 11:35:36 HSV 2 IgG Ab, QN, IA, serum 2018 [facility] ([facility] - All Locations), Patient Can Go To The Location Of Their Choice, [id number] 9 11:35:37 Referral None recorded. Procedures None recorded. Surgeries None recorded. Imaging US, breast, bilateral , w/ axilla 2018 [facility] [place] (One Call Scheduling), [address] [place], [address], 9 09:50:37 MAMMO, diagnosti c, digital, bilateral 2018 [facility] (One Call Scheduling), [address] [place], [address], 9 17:04:55 US, pelvis, transabdo luis + transvagi nal 2018 [facility] [place] (One Call Scheduling), [address] [place], [address], 9 12:30:59 Medication Orders Bicillin L-A 2,400,000 unit/4 mL intramusc ular syringe 2018 [id number], [address], [place], [id number], 9 09:44:25 fluconazo le 150 mg tablet 2018 019 [facility]80264, [address], [place], [id number], 9 17:49:55 Bicillin L-A 2,400,000 unit/4 mL intramusc ular syringe 2018 019 [facility][id number], [address], [place], [id number], 9 17:49:55 Diflucan 150 mg tablet 2018 019 [facility] #[id number], [address], [place], [id number], 9 10:36:10 Flagyl 500 mg tablet 2018 019 [facility] #77681, [address], [place], [id number], 9 10:01:10 Patient TargetsNo targets recorded. Patient Instructions Encounter Date Encounter Id Patient Instructions Last Modified By Organization Details Last Modified Time 07/20/2018 [id number] bladder training: care instructions svuyyuru Not available [...] Instructions svuyyuru Not available 07/20/2018 11:49:54 08/02/2018 [id number] syphilis: care instructions mwasserman Not available 08/02/2018 17:49:55 08/09/2018 [id number] syphilis: care instructions fridayuru Not available 08/10/2018 09:44:25 08/16/2018 [id number] syphilis: care instructions svuyyuru Not available 08/16/2018 [...] 07/20/1907/20/2018 urina lysis , dipst ick Specific [place] 1.020 Not Available In-Off ice Order Internal Use Only DO Not Attach Compendium DO Not Attach Compendium, Do Not Delete/merge, [id number] 07/20/2018 10:34:17 07/20/1907/20/2018 urina lysis , dipst [...] Negati ve negati ve Not Available [facility] ([facility]) [address] [place], [address], 07/23/2018 11:35:34 07/20/1907/21/2018 hepat itis panel (A+B+ C), acute , serum HBsAg screen Negati ve negati ve Not Available [facility] ([facility]) [address] [place], [address], 07/23/2018 11:35:34 07/20/1907/21/2018 hepat itis panel (A+B+ C), acute , serum hep B core Ab, IgM Negati ve negati ve Not Available [facility] ([facility]) [address] [place], [address], 07/23/2018 11:35:34 07/20/1907/21/2018 hepat itis panel (A+B+ C), acute , serum hep C virus Ab 0.2 s/co_ ratio 0.0-0. 9 Negat curtis: < 0.8 Indet ermin ate: 0.8 - 0.9 Posit curtis: > 0.9 The [facility] recom mends that a posit curtis HCV antib sharad resul t be follo wed up with a HCV Nucle ic Acid Ampli ficat ion test (5507 13). Not Available [facility] ([facility]) [address] [place], [address], 07/23/2018 11:35:34 07/20/1907/21/2018 hepat itis B surfa ce Ab, quali tativ e, serum hep B surface Ab, qual Non Reacti ve Non React curtis: Incon siste nt with immun ity, less than 10 mIU/m L React curtis: Consi stent with immun ity, great er than 9.9 mIU/m L Not Available [facility] ([facility]) [address] [place], [address], 07/23/2018 11:35:35 07/20/1907/21/2018 trepo nema palli dum scree n, serum , refle x confi rmati on T pallidum antibodies Positi ve negati ve abnormal Not Available [facility] ([facility]) [address] [place], [address], 07/23/2018 11:35:35 07/20/1907/22/2018 trepo nema palli dum scree n, serum , refle x confi rmati on RPR Non Reacti ve non reacti ve Not Available [facility] ([facility]) [address] [place], [address], 07/23/2018 11:35:35 07/20/1907/23/2018 RPR (rapi d plasm [...] rmati on of the diagn osis by [facility] medic ally estab lishe d diagn ostic produ ct or proce dure. Not Available [facility] ([facility]) [address] [place], [address], 07/23/2018 11:35:36 07/20/19 19 07/21/2018 HIV 1+2 AB + HIV 1 p24 Ag, quali tativ e immun oassa y, serum HIV screen 4TH generation wrfx Non Reacti ve non reacti ve Not Available [facility] ([facility]) [address] [place], [address], 07/23/2018 11:35:37 07/20/1907/21/2018 HSV 2 IgG Ab, [...] quinton to HSV-2 . Not Available [facility] ([facility]) [address] [place], [address], 07/23/2018 11:35:37 07/20/19 19 07/22/2018 bacte rial vagin osis + vagin itis panel , vagin al trich vag by HONG Negati ve negati ve Not Available [facility] ([facility]) [address] [place], [address], 07/23/2018 14:13:24 07/20/19 19 07/22/2018 bacte rial vagin osis + vagin itis panel , vagin al chlamydia trachomatis, HONG Negati ve negati ve Not Available [facility] ([facility]) [address] [place], [address], 07/23/2018 14:13:24 07/20/19 19 07/22/2018 bacte rial vagin osis + vagin itis panel , vagin al neisseria gonorrhoeae, HONG Negati ve negati ve Not Available [facility] ([facility]) [address] [place], [address], 07/23/2018 14:13:24 07/20/1907/23/2018 bacte rial vagin osis [...] men for testi ng. Not Available [facility] ([facility]) [address] [place], [address], 07/23/2018 14:13:24 07/20/19 19 07/23/2018 bacte rial [...] men for testi ng. Not Available [facility] ([facility]) [address] [facility], [place], [address], 07/23/2018 14:13:24 07/20/19 19 07/23/2018 bacte rial [...] is not neces michael. Not Available [facility] ([facility]) [address] [facility], [place], [address], 07/23/2018 14:13:24 07/20/1907/23/2018 bacte rial vagin osis [...] men for testi ng. Not Available [facility] ([facility]) [address] [place], [address], 07/23/2018 14:13:24 07/20/1907/23/2018 bacte rial vagin osis + vagin itis panel , vagin al eklly glabrata, HONG Commen t negati ve We [...] is not neces michael. Not Available [facility] ([facility]) [address] [facility], [place], [address], 07/23/2018 14:13:24 07/20/19 19 07/22/2018 HSV (1+2) DNA, qual, PCR, unspe cifie d speci men hsv 1 HONG Negati ve negati ve Not Available [facility] ([facility]) [address] [place], [address], 07/23/2018 14:13:25 07/20/1907/22/2018 HSV (1+2) DNA, qual, PCR, unspe cifie d speci men hsv 2 HONG Negati ve negati ve Not Available [facility] ([facility]) [address] [place], [address], 07/23/2018 14:13:25 07/26/1907/27/2018 trepo nema palli dum scree n, serum , refle x confi rmati on T pallidum antibodies Positi ve negati ve abnormal Not Available [facility] ([facility]) [address] [place], [address], 07/29/2018 10:36:24 07/26/19 19 07/28/2018 trepo nema palli dum scree n, serum , refle x confi rmati on RPR Non Reacti ve non reacti ve Not Available [facility] ([facility]) [address] [facility], [place], [address], 07/29/2018 10:36:24 07/26/1907/29/2018 RPR (rapi d plasm [...] rmati on of the diagn osis by [facility] er medic ally estab lishe d diagn ostic produ ct or proce dure. Not Available [facility] ([facility]) [address] [facility], [place], [address], 07/29/2018 10:36:24 08/16/1908/17/2018 inhib in A + B panel , serum or plasm a inhibin A, ultrasensiti ve 8.8 pg/mL Menst rual Phase Early Folli cular <34.0 Late Folli cular <99.0 Perio vulat ory 8.0-2 33.0 MidLu teal <145. 0 End Lutea l <145. 0 Postm enopa usal <4.0 Not Available [facility] ([facility]) [address] [place], [address], 08/19/2018 16:16:37 08/16/19 19 08/19/2018 inhib in [...] rmati on of the diagn osis by [facility] er medic ally estab lishe d diagn ostic produ ct or proce dure. Not Available [facility] ([facility]) [address] [facility], [place], [address], 08/19/2018 16:16:37 08/16/19 19 08/16/2018 zander (risk [...] mcnamara on surge ry. Not Available [facility] ([facility]) [address] [place], [address], 08/19/2018 16:16:37 08/16/19 19 08/16/2018 zander (risk [...] naima on surge ry. Not Available [facility] ([facility]) [address] [facility], [place], [address], 08/19/2018 16:16:37 08/16/19 19 08/16/2018 zander (risk of ovari an malig naima algor ithm score ), serum (zarina enopa usal) comment: Commen t The Risk for Ovari an Malig naima Algor ithm (ZANDER ) test is inten ded to aid in asses sing wheth er a preme nopau jluita or postm enopa usal woman who prese [...] inter aleman pallavi . Not Available [facility] ([facility]) [address] [facility], [place], [address], 08/19/2018 16:16:37 08/16/19 19 08/17/2018 zander (risk [...] malig nant disea se. Not Available [facility] ([facility]) [address] [facility], [place], [address], 08/19/2018 16:16:37 08/16/19 19 08/18/2018 zander (risk [...] malig nant disea se. Not Available [facility] ([facility]) [address] [facility], [place], [address], 08/19/2018 16:16:37 08/16/19 19 08/18/2018 zander (risk of ovari an malig naima algor ithm score ), serum (zarina enopa usal) premenopausa l zander 0.64 see below Not Available [facility] ([facility]) [address] [facility], [place], [address], 08/19/2018 16:16:37 08/16/19 19 08/18/2018 zander (risk of ovari an malig naima algor ithm score ), serum (zarina enopa usal) postmenopaus al zander 0.95 see below Not Available [facility] ([facility]) [address] [facility], [place], [address], 08/19/2018 16:16:37 08/16/19 19 08/17/2018 carci noemb [...] the prese nce or absen ce of [facility]. Not Available [facility] ([facility]) [address] [facility], [place], [address], 08/19/2018 16:16:38 08/16/19 19 08/17/2018 afp (alph [...] the prese nce or absen ce of [facility]. This test is not inter preta ble in pregn ant femal es. Not Available [facility] ([facility]) [address] [facility], [place], [address], 08/19/2018 16:16:39 08/16/1908/17/2018 HCG, intac t + beta subun it, quant , serum or plasm a HCG,beta subunit,qnt, serum 3 mIU/m L Femal e (Non- pregn ant) 0 - 5 (Post menop ausal ) 0 - 8 Femal e (Preg nant) Weeks of Gesta tion 3 6 - 71 4 10 - 750 5 259 - 8302 6 558 - 21562 7 3178 -5670 63 8 03312 -6670 71 9 56167 -8029 10 10 12970 -3443 77 12 44438 -2106 12 14 92850 - 43123 15 66825 - 91361 16 5854 - 02848 17 0540 - 87911 18 6925 - 82063 Anthony ECLIA metho dolog y Not Available [facility] ([facility]) [address] [facility], [place], [address], 08/19/2018 16:16:39 08/16/19 19 08/17/2018 ldh, serum or plasm a LDH 179 IU/L 119-22 6 Not Available [facility] ([facility]) [address] [facility], [place], [address], 08/19/2018 16:16:40 11/05/19 15 11/04/2014 imagi ng/di agnos tic resul t No observ ation record ed. [email or web address] Not Available 2014 23:27:59 11/20/19 15 11/18/2014 imagi ng/di agnos tic resul t No observ ation record ed. [facility] (Imaging) [address] [place], [address], 11/20/2014 16:46:46 12/21/19 15 12/19/2014 imagi ng/di agnos tic resul t No observ ation record ed. [facility] (Imaging) [address] [place], [address], 12/20/2014 09:16:41 12/27/19 15 12/19/2014 imagi ng/di agnos tic resul t No observ ation record ed. [facility] (Imaging) [address] [place], [address], 12/26/2014 09:10:49 09/12/19 16 09/12/2015 CT, sinus es No observ ation record ed. [facility] (Imaging) [address] [place], [address], 09/12/2015 20:14:41 08/02/19 19 08/02/2018 US, breas t, bilat eral, w/ axill a No observ ation record ed. [facility] [address] [place], [address], 08/03/2018 17:29:58 08/02/19 19 08/02/2018 US, breas t, bilat eral, w/ axill a No observ ation record ed. [email or web address] Not Available 2018 13:52:37 08/12/1908/02/2018 US, pelvi s, trans abdom inal + trans vagin al No observ ation record ed. [facility] ([facility] Sched[facility]) [address] [place], [address], 08/16/2018 15:28:22 Result Notes None recorded. Problems Name Problem SNOMED Code Status Onset Date Resolution Date Notes Provider Name and Address Organization Details Recorded Time Syphilis 34109133 Active 2018 Jyoti Moses MD Attn: Accounting, [address] [place], [address], [facility] 9 12:03:36 Diverticular disease 797878358 Active Crystal Mina MD Attn: Accounting, [address] [place], [address], [place] [facility] 5 16:44:18 Abdominal pain 80137254 Active Crystal Mina MD Attn: Accounting, [address] [place], [address], [place] [facility] 4 16:13:19 Gastroesopha geal reflux disease 564315414 Active Crystal Mina MD Attn: Accounting, [address] [place], [address], [facility] 4 16:13:19 Notes: I am just here for my follow up Problem Notes None recorded. Procedures Surgical History Date Name Laterality Status Provider Name and Address Organization Details Recorded Time endometrial ablation completed Chris Moses MD Attn: Accounting,[address] , [place], [address], [facility] 07/20/2018 09:47:46 bariatric operative procedure completed Jyoti Moses MD Attn: Accounting,[address] , [place], [address], [facility] 07/20/2018 10:23:16 Hysterectomy completed September [facility] 06/28/2014 15:32:38 Dilation and Curettage completed September [facility] 06/28/2014 15:32:38 Arthroscopic Surgery completed Avinash gentry [facility] 06/28/2014 15:32:38 Gastrointestinal Surgery completed September [facility] 06/28/2014 15:32:38 Knee Surgery completed September [facility] 06/28/2014 15:32:38 Imaging Results Imaging Date Name Status LastModified by Organization Details LastModified Time 11/04/2014 imaging/diagnostic result completed [facility] Information not available 11/05/2014 23:27:59 11/18/2014 imaging/diagnostic result completed [facility] ([facility]) [address] [place], [address], 11/20/2014 16:46:46 12/19/2014 imaging/diagnostic result completed [facility] ([facility]) [address] [place], [address], 12/20/2014 09:16:41 12/19/2014 imaging/diagnostic result completed [facility] ([facility]) [address] [place], [address], 12/26/2014 09:10:49 09/12/2015 CT, sinuses completed [facility] ([facility]) [address] [place], [address], 09/12/2015 20:14:41 08/02/2018 US, breast, bilateral, w/ axilla completed [facility] [address] [place], [address], 08/03/2018 17:29:58 08/02/2018 US, breast, bilateral, w/ axilla completed [email or web address] Information not available 08/04/2018 13:52:37 08/02/2018 US, pelvis, transabdominal + transvaginal completed [facility] ([facility] Sched[facility]) [address] [place], [address], 08/16/2018 15:28:22 Procedure Notes None recorded. Medical [...] Address Organization Details Last Updated DateTime 07/20/2018 41446.33 g 128 mm[Hg] 88 mm[Hg] Harpreet Quintero [place] [facility] 07/20/2018 09:11:34 Date Recorded Body weight Systolic blood pressure Diastolic blood pressure Provider Name and Address Organization Details Last Updated DateTime 08/16/2018 87215.33 g 126 mm[Hg] 88 mm[Hg] Harpreet Quintero [place] [facility] 08/16/2018 14:59:07 Date Recorded Body temperature Body height Body mass index (BMI) Heart rate Respiratory rate Body weight Systolic blood pressure Diastolic blood pressure Provider Name and Address Organization Details Last Updated DateTime 5 98 [degF] 170.18 cm 45.4 kg/m2 84 /min 20 /min 614582. 7873 g 140 mm[Hg] 88 mm[Hg] September GUERLINE Velasquez [facility] 5 16:26:30 Social History Question Answer Notes LastModified by Organizat ion Details LastModified Time Tobacco Smoking Status Never Smoker September GUERLINE Velasquez, [place] - [facility] 06/28/2014 15:32:39 Do You Have [...] Do You Use Protection During Sex? No [place] Information not available 07/20/2018 What Is Your Relationship Status? [place] Information not available 07/20/2018 Seat Belts Used Routinely Yes [place] Information not available 07/20/2018 Are You Sexually Active? Yes [place] Information not available 07/20/2018 Smoke Alarm In Home Yes [place] Information not available 07/20/2018 How Much Tobacco Do You Smoke? No [email or web address] Information not available 08/16/2018 General Stress Level High [place] Information not available 07/20/2018 Do You Use Sunscreen Routinely? Yes [place] Information not available 07/20/2018 How Many Years Have You Smoked Tobacco? 0 [place] Information not available 07/20/2018 Sex: Unknown Functional Status Question Answer Note LastModified by Organizat ion Details LastModified Time What is your exercise level? Occasional [place] Information not available 07/20/2018 Mental Status None [...] High Blood Pressure Y Atrial Fibrillation N Kidney or Bladder Problems N Thyroid Problems N GI Problems N Depression N COPD N Blood Clots Y Skin Problems N Anemia N Heart Attack ([place]) N Anxiety Disorder Y Diabetes N Muscle, Joint, or Bone Problems Y Seizures/Epilepsy N Acid Reflux (GERD) Y Cancer N Stroke N Asthma Y Allergies N High Cholesterol N Hepatitis N Liver Disease N Headaches Y Heart Failure N Osteoporosis N Gynecological History Statement/Question Response Abnormal Pap [...] SNOMED-CT Code Diagnosis ICD10 Code Diagnosis Note [id number] MARIELOS Arreola (Adult Med) [address] [place] [address] 06/28/2014 15:15:04 06/28/2014 17:20:53 Abdominal pain 02870653 L mid abdominal pain in a 33y/o lady s/p lap band surgery, I will like to obtain a CT scan and proceed with a referral to a bariatric surgeon. Her weight gain may mean she needs her lapband adjusted. Labs were also ordered. She follows up with Dr. Hernandez (Fluorescent Lamp Replacer) and apparently had a FRANSISCO some time ago with multiple laparoscop ic surgeries, she has either one or both ovaries and she is on Metformin for PCOS Gastroesop hageal reflux disease [id number] General ex amination of patient 851493039 She has refused the Influenza vaccine, her 29lb weight gain despite lap-band surgery prompts the need for an evaluation by a bariatric surgeon locally, as she is unable to go back to [place]. I will initiate a referral [id number] Analisa Steiner (Adult Med) [address] [place] [address] 10/12/2014 15:52:14 10/12/2014 17:36:07 Diverticular disease 091770170 Noted on CT, her normal labs were discussed [id number] MD Obdulia Kuo (HOT CAR CHARGER) [address] [place] [address] 07/20/2018 08:54:48 07/20/2018 17:04:55 Gynecologic examination 45739870 Z01.419 Age appropriat e counseling done. Venereal d isease screening 595659171 Z11.3 Z20.2 Pain in pelvis 11429144 R10.2 COUNSELED THOROUGHLY ABOUT IT. REVIEWED CT PELVIS FROM 04/27/18 - 7.5 CM LEFT ADNEXAL CYST. COUNSELED THOROUGHLY ABOUT IT. TVUS ORDERED. Cyst of ovary 63977971 N 83.[address] PELVIS FROM 04/27/18 - 7.5 CM LEFT ADNEXAL CYST. COUNSELED THOROUGHLY ABOUT IT. TVUS ORDERED. Bacterial vaginosis 4197 55745 N76.0 COUNSELED THOROUGHLY ABOUT IT. Breast lump 40360595 N63 .0 COUNSELED THOROUGHLY ABOUT IT. Morbid obesity 457809334 E66.01 Counseled About weight loss, diet and excercise. Advised patient to f/u with freelance interpreter/translator. Candidiasis of skin 4988 3006 B37.2 COUNSELED THOROUGHLY ABOUT IT. Female str ess incontinence 32628892 N39.3 COUNSELED THOROUGHLY ABOUT IT AND KEGEL EXCERCISES . SINCE ITS ONLY ONCE ENCOURAGE KEGEL EXCERCISES . [id number] Eusebia Steiner (HOT CAR CHARGER) [address] [place] [address] 0 08/02/2018 16:15:38 08/03/2018 10:32:07 Candidiasis of vagina 19849147 B37.3 Syphilis 69414355 A53.9 [id number] Eusebia Spainquyen Steiner (H[employer] CAR [employer]GER) [address] [place] [address] 0 08/09/2018 17:10:05 08/10/2018 10:39:52 Syphilis 74367099 A53.9 [id number] MD Obdulia Kuo (H[employer] CAR CHARGER) [address] [place] [address] 08/16/2018 14:46:40 08/17/2018 13:27:00 Cyst of left ovary [id number] 6146054 N83.202 D/W patient TVUS result. Counseled thoroughly about the ovarian cyst with heterogeno us areas. Gave patient orders sheet for tumor markers. Patient say she has appointmen t with [facility] oncologist . Syphilis 53763926 A53.9 Counseled about it. Patient say she [...] Name 10/12/2014 1 [place] Dory Barnes [id number] [facility] 10/12/2014 2 [place] WHEN [place] OR MEDICARE REPLACEMENT PRIMARY) Dory Barnes [id number] [facility] 07/20/2018 1 [place] Dory Barnes [id number] [facility] 07/20/2018 2 [place] OR [place]IC[place] REPLACEMENT PRIMARY) Dory Johnsonll [id number] [facility] 08/02/2018 2 [place] OR MEDIC[place] REPLACEMENT PRIMARY) Dory Barnes [id number] [facility] 08/02/2018 1 [place] DUAL [place]IG[place] (MEDICARE - MEDICAID REPLACEMENT HMO) Dory Johnsonll [id number] [facility] 08/09/2018 2 [place] OR MEDIC[place] REPLACEMENT PRIMARY) Dory Barnes [id number] [facility] 08/09/2018 1 [place] (MEDICARE - MEDICAID REPLACEMENT HMO) Dory Johnsonll [id number] [facility] 08/16/2018 2 [place] WHEN [place] OR MEDICARE REPLACEMENT PRIMARY) Dory Barnes [id number] [facility] 08/16/2018 1 [place] (MEDICARE - MEDICAID REPLACEMENT HMO) [facility] [id number] [facility] Notes Date Note Type Note Provider [...] no dyspareunia Jyoti Moses MD Attn: Accounting,[address] [place], [address], [facility] 07/20/2018 12:30:02 08/16/2018 text/html Patient here to f/u on TVUS for pelvic pain. Patient denies any active vaginal bleeding today or vaginal discharge. Jyoti Moses MD Attn: Accounting,[address] [place], [address], [facility] 08/16/2018 15:33:39 OBGyn Episode Ob Episode Information Episode Created Date Number of Fetuses Patient Bloodtype Patient rh Status Prepregnancy Weight lbs Domestic Partner Domestic Partner Phone Father Name Yeast Fermentation Attendant Status 07/20/19 19 1 CLOSED Fetus Data First Name Last Name Admitted to NICU Weight (g) Sex Living Outcome Pediatric Complications Fetus ID Race Codes Race Delivery Type 3572.03 7 F Full Term 30190 Vaginal Only Amrtir Calculation Initial Martir Date Initial Exam Date [...] Domestic Partner Domestic Partner Phone Father Name Yeast Fermentation Attendant Status 07/20/19 19 1 CLOSED Fetus Data First Name Last Name Admitted to NICU Weight (g) Sex Living Outcome Pediatric Complications Fetus ID Race Codes Race Delivery Type 2834.95 M Prematur e 32677 Vaginal Only Martir Calculation Initial Martir Date [...] Domestic Partner Domestic Partner Phone Father Name Yeast Fermentation Attendant Status 07/20/19 19 1 CLOSED Fetus Data First Name Last Name Admitted to NICU Weight (g) Sex Living Outcome Pediatric Complications Fetus ID Race Codes Race Delivery Type 3231.84 3 F Full Term [address] Vaginal Only Martir Calculation Initial Martir Date [...]
--- OUTSIDE RECORDS SUMMARY | 2024-10-19 11:06 | XMS_ITS | Encounter Summary ---
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 Hospital Encounter [place] [phone] Katie Tran MD [facility] Social History [...] on file Legal Sex Female 12:37 PM CDL BULK DRIVER Gender Identity Not on file Sexual Orientation [...] st Contact Info) Description 05/04/2025 11:00 AM CDL BULK DRIVER Office Visit [facility] [address] [address] Blanca Kamara, CHAIR FRAME BUILDERCHIP FRIER [address] [facility] [address] [place] [address] documented as of this encounter [...] on filedocumented in this encounter Care Teams Shift Manager Relationship Specialty Start Date End Date Henry Ruiz DO PCP - General Internal Medicine 10/12/15 documented as of this encounter
--- OUTSIDE RECORDS SUMMARY | 2024-10-19 11:06 | XMS_ITS | Clinical Summary ---
Author Organization [facility] Address [address] [place] [address] Care Team Providers Care Lead Esthetician Name Role Phone Henry Ruiz DO Primary Care Provider [phone] Nicholas Peacock MD Unavailable [phone] Lolita Colon MD Unavailable [phone] Allergies Active Allergy Reactions Criticality Noted Date [...] mouth Active ascorbic acid (ascorbic acid with hécotr hips) 500 mg tablet,chewable Take 1 tablet/chew [...] Diagnosed Date Atherosclerotic heart diseas [place] coronary artery without angina pectoris 07/15/2024 Other [...] Department Care Team Description 08/10/2024 9:30 AM OFFICE INSPECTOR Office Visit [facility] [address] [place] [address] [place] [address] Gin Conte NP Status post panniculectomy (Primary Dx) from Last 3 Months Surgical History Surgery [...] on file Legal Sex Female 1:45 AM OFFICE INSPECTOR Gender Identity Not on file Sexual Orientation Not on file Obstetrics History Last Filed Vital Signs Vital Sign Reading Time Taken Comments Blood Pressure 111/62 05/17/2024 7:35 AM OFFICE INSPECTOR Pulse 88 05/17/2024 8:20 AM OFFICE INSPECTOR Temperature 36.7 C (98 F) 05/17/2024 7:35 AM OFFICE INSPECTOR Respiratory Rate 18 05/17/2024 7:35 AM OFFICE INSPECTOR Oxygen Saturation 98% 05/17/2024 7:35 AM OFFICE INSPECTOR Inhaled Oxygen Concentration - - Weight 72 kg (158 lb 11.7 oz) 05/17/2024 6:13 AM OFFICE INSPECTOR Height 167.6 cm (5' 6 ) 05/17/2024 6:13 AM OFFICE INSPECTOR Body Mass Index 25.62 05/17/2024 6:13 AM OFFICE INSPECTOR Plan of Treatment Health Maintenance Due [...] this topic Medical Devices Implanted Type Area Assistant Construction Superintendent Device Identifier Shelf Expiration Date Model / Serial / Lot Geekatoo Sealant Fibrin Patch [place] Set Frozen Prefilled Syringe Artiss 10ml [id number] - [id number] - [id number] Implanted:Qty: 1 on 05/12/2024 by Russell Louie MD at [facility] N/A: Abdomen [facility] 07/29/2025 [id number] / [id number] / [id number] Procedures Procedure Name Priority Date/Time Associated Diagnosis Comments EGFR Routine 05/17/2024 3:23 AM OFFICE INSPECTOR HEPATITIS PANEL, ACUTE Timed 05/14/2024 1:34 PM OFFICE INSPECTOR LIPID PANEL Routine 07/30/2023 8:51 AM OFFICE INSPECTOR ALBUMIN CREATININE RATIO, URINE Routine 07/30/2023 8:51 AM OFFICE INSPECTOR from Last 3 Months or Most Recently Relevant to Health Maintenance Results * eGFR (05/17/2024 3:23 AM OFFICE INSPECTOR) eGFR >90 >=60 mL/min/1. 73 m2 [...] last reviewed 2021. Blood 05/17/2024 3:23 AM OFFICE INSPECTOR 05/17/2024 4:05 AM OFFICE INSPECTOR us Lolita Colon MD LAB BLOOD ORDERABLES Final Res ult ERICK VANCE (BEHZAD) [address] [facility] [place] [address] * Hepatitis panel, acute Blood (05/14/2024 1:34 PM OFFICE INSPECTOR) Hep A IgM Nonreactive Nonreactive Comment: Interpretive Data: If Hep A IgM Ab is reported as Equivocal, a new sample should be drawn in two weeks for testing. Current interpretive data was last revised on 19. Testing performed by: [facility], [address] [place] [address], [place]., [address] Hep B core IgM Nonreactive Nonreactive Kat VANCE (BEHZAD) Comment: Interpretive Data If HepB Core IgM Ab is reported as Equivocal, a new sample should be drawn in two weeks for testing. Current interpretive data was last revised on 19. Testing performed by: [facility], [address] [place] [address], [place]., [address] Hep C Ab Nonreactive Nonreactive ERICK VANCE [...] last revised on 2019. Testing performed by: [facility], [address] [place] [address]., [address] HepBsAg Nonreactive Nonreactive ERICK VANCE ([place]HZAD) Comment:Testing performed by : [facility], [address] [place] [address]., [address] Blood 05/14/2024 1:34 PM OFFICE INSPECTOR 05/15/2024 9:46 AM OFFICE INSPECTOR Lolita Colon MD LAB MICROBIOLOGY - GENERAL ORD ERABLES Final Result ERICK VANCE ([place]) [address] [facility] [place] [address] * Albumin Creatinine Ratio, Urine (07/30/2023 8:51 AM OFFICE INSPECTOR) Albumin Ur <12.0 mg/L [facility] AM H (BEHZAD) Comment: Interpretive Data No reference range established. Current interpretive data was last revised 2018. Testing performed by: [address] [address] Creatinine Ur 75.1 mg/dL ERICK VANCE ([place]ZAD) Comment: Interpretive Data No reference range established. Current interpretive data was last revised 2018. Testing performed by: [address] [address] Albumin Creatinine Ratio, Ur <16 1 - 29 mg/g ERICK VANCE (BEHZAD) Comment:Testing performed by : [address] [address] Urine 07/30/2023 8:51 AM OFFICE INSPECTOR 07/30/2023 10:55 AM OFFICE INSPECTOR us Rocio Wu NP LAB URINE ORDERABLES Final R esult ERICK VANCE ([place]) [address] [facility] Department of [facility] [place], [place] [address] * Lipid panel (07/30/2023 8:51 AM OFFICE INSPECTOR) Cholesterol 91 30 - 199 mg/dL [...] ARGENTINA VANCE (BEHZAD) Blood 07/30/2023 8:51 AM OFFICE INSPECTOR 07/30/2023 10:12 AM OFFICE INSPECTOR us Rocio Wu HEALTH PLAN MANAGER LAB BLOOD ORDERABLES Final R esult ERICK VANCE ([place]) [address] [facility] [place] [address] from Last 3 Months or Most Recently Relevant to Health Maintenance Insurance [facility] MEDICARE ADVANTAGE IDPA [facility] MEDICARE ADVANTAGE IDPA Care Teams Lead Esthetician Relationship Specialty Start Date End Date Henry Ruiz DO PCP - General Internal Medicine 12/09/21 Nicholas Peacock MD [address] [facility] [address] [place] [address] Surgeon Neurosurgery 02/19/22 Lolita Colon MD [address] [place] [address] [place] [address] Consulting Physician Internal Medicine 05/16/24
--- OUTSIDE RECORDS SUMMARY | 2024-10-19 11:06 | XMS_ITS | Clinical Summary ---
Author Organization [facility] Address [address] [place] [address] Phone Care Team Providers Care Holistic Pulser Name Role Phone Henry Ruizian Primary Care [...] [facility] [place] [place] Care Teams Holistic Pulser Relationship Specialty Start Date End Date Henry Ruiz DO [address] [place] [address] PCP - General Internal Medicine 02/07/23
--- OUTSIDE RECORDS SUMMARY | 2024-10-19 11:06 | XMS_ITS | CONTINUITY OF CARE DOCUMENT ---
Author Name priscila, priscila Address Unknown Organization [facility] Address [address] [facility] [address] [place] [address] Phone [phone] Care Team Providers Care Public Safety Telecommunicator Name Role Phone Abelino Ny MD Unavailable WILLIAM MELENDEZ DO Unavailable [phone] WILLIAM MELENDEZ DO Unavailable [phone] PROBLEMS Condition Status Date Provider Notes HTN-02/06 [...] In-person encounter Office Visit Abelino Ny MD [facility] CHEST PAIN-04/2014 NUC NEG EF60% - 02/03 NUC ISCHEMIACHOLECYSTECTOM Y, HX OF MAY 2010GERD - In-person encounter Office Visit Abelino Ny MD [facility] Bilateral leg Edema - In-person encounter Office Visit Cameron Ramírez MD [facility] - In-person encounter Office Visit Abelino Ny MD [facility] OBESITY- s/p lap band revision - In-person encounter Office Visit Abelino Ny MD [facility] - In-person encounter Office Visit Abelino Ny MD [facility] OBESITY- s/p lap band revision - In-person encounter Office Visit Abelino Ny MD [facility] Family History of Hypertension: - In-person encounter Office Visit Abelino Ny MD [facility] - In-person encounter Office Visit Abelino Ny MD [facility] - In-person encounter Office Visit Abelino Ny MD [facility] PE, HX OFPREOPERATIVE CARDIOVASCULAR EXAMINATIONCAD-02/03 CATH NO CADDVT-09/07 SHIV DOP NEG - In-person encounter Office Visit Abelino Ny MD [facility] OBESITY- s/p lap band revision - In-person encounter Office Visit Abelino Ny MD [facility] - In-person encounter Office Visit Abelino Ny MD [facility] - In-person encounter Office Visit Abelino Ny MD [facility] POLYCYSTIC OVARIAN DISEASE REMOVED MAY 2010 - In-person encounter Office Visit Abelino Ny MD [facility] - In-person encounter Office Visit Abelino Ny MD [facility] - In-person encounter Office Visit Abelino Ny MD [facility] HTN-02/06 ECHO EF 60-06/04 ECHO EF 60CHEST PAIN-04/2014 NUC NEG EF60% - 02/03 NUC ISCHEMIA - In-person encounter Office Visit Gary Angeles MD [facility] VITAL SIGNS Date Observation Value Provider Body Mass Index (Ratio) 35.77 kg/m2 Manjeet Carcamote blood pressure, diastolic 70 mm[Hg] Kr isty [place] blood pressure, systolic 110 mm[Hg] Kri sty Leonela oxygen saturation, oximetry 98 % Kena Leonela respiratory rate E&M 17 /min Kena [place] pulse rate 82 /min Kena [place] blood pressure, cuff size regular Kr alexandra Leonela weight E&M 215 [lb_av] Kena [place] height E&M 65 [in_i] Kena Leonela Body Mass Index (Ratio) 33.11 kg/m2 Scottie Ny MD oxygen saturation, oximetry 99 % [facility] pulse rate 83 /min [facility]elli blood pressure, diastolic 70 mm[Hg] [...] MD blood pressure, diastolic 80 mm[Hg] [facility], systolic 110 mm[Hg] Kil sergio Parrish oxygen saturation, oximetry 98 % [facility] respiratory rate E&M 16 /min [facility] pulse rate 81 /min [facility] weight E&M 189 [lb_av] [facility] height E&M 65 [in_i] [facility] Body Mass Index (Ratio) 44.59 kg/m2 Scottie Ny MD blood pressure, cuff size large Ke rri Conchis blood pressure, diastolic 84 mm[Hg] Ke rri Conchis blood pressure, systolic 132 mm[Hg] Maura Balderrama oxygen saturation, oximetry 99 % Bebe Balderrama respiratory rate E&M 18 /min Bebe patel pulse rate 78 /min Bebe Arun [facility] weight E&M 268 [lb_av] Bebe Arun [facility] height E&M 65 [in_i] Bebe Arun [...] Shan hawa Taylor pulse rate 95 /min [facility] oxygen saturation, oximetry 98 % [facility] respiratory rate E&M 16 /min [facility] weight E&M 262.25 [lb_av] Krystian [...] patel weight E&M 281 [lb_av] Bebe Dias [facility] height E&M 65 [in_i] [facility]be [facility] blood pressure, diastolic, left arm 110 m m[Hg] Shanhawa Taylor blood pressure, systolic, left arm 159 mm [Hg] Shanhawa Taylor blood pressure, diastolic, right arm 137 mm[Hg] Shanhawa Taylor blood pressure, systolic, right arm 170 m m[Hg] Shanhawa Taylor blood pressure, diastolic 110 mm[Hg] Fleming Taylor blood pressure, systolic 159 mm[Hg] Shan de la cruz Taylor pulse rate 99 /min [facility] oxygen saturation, oximetry 96 % [facility] respiratory rate E&M 18 /min [facility] weight E&M 286 [lb_av] Shanhawa Taylor blood pressure, diastolic 95 mm[Hg] Fleming Taylor blood pressure, systolic 140 mm[Hg] Shan de la cruz Taylor pulse rate 85 /min [facility] oxygen saturation, oximetry 99 % [facility] respiratory rate E&M 16 /min [facility] weight E&M 272 [lb_av] Shanhawa Taylor blood pressure, diastolic, left arm 80 mm [Hg] Shanyehawa Taylor blood pressure, systolic, left arm 120 mm [Hg] [facility] blood pressure, diastolic, right arm 88 m m[Hg] Shanhawa Taylor blood pressure, systolic, right arm 123 m m[Hg] [facility] oxygen saturation, oximetry 99 % [facility] blood pressure, diastolic 98 mm[Hg] Pimenteleadestiney [...] [employer] 3.5-5.1 sodium, serum 141 mmol/L [employer] [id number] 9231/09/ 28 creatinine, serum 0.7 mg/dL [facility] 0.5-0.9 carbon dioxide, venous blood 28 mmol/L [employer] 22-29 albumin, serum 4.7 g/dL [employer] 3.5-5.2 calcium, serum 9.7 mg/dL [facility] 8.6-10.2 aspartate aminotransferase (SGOT), serum 25 1/L [facility] 0-32 alkaline phosphatase, serum 85 1/L [facility] 40-130 alanine aminotransferase (SGPT), serum 27 1/L [facility] 0-33 protein, total, serum 7.8 g/dL [facility] 6.6-8.7 bilirubin, serum, total 0.3 mg/dL [facility] 0.0-1.2 urea nitrogen, blood 14 mg/dL [facility] 6-20 blood glucose, random 94 mg/dL [facility] 74-99 platelet count 255 10*3/mm3 [facility] hematocrit, blood 42.1 % [facility] international normalized ratio (INR) 1.0 [facility] D-dimer quantitative mcg/mL 372 ug/mL [facility] alanine aminotransferase (SGPT), serum 52 1/L [facility] aspartate aminotransferase (SGOT), serum 25 1/L [facility] creatinine, serum 1.07 mg/dL [facility] potassium, serum 3.2 mmol/L [facility] sodium, serum 139 mmol/L [facility] HISTORY OF MEDICATION USE Medication Status [...] every 4-6 hours NEEDED 07/17 - 07/27 [facility] VU METFORMIN HCL 500 MG ORAL TABLET [...] RELEASE PARTICLES active 1 tab daily 07/26 Estebna Parrish HYDROCODONE-ACETAMI NOPHEN 7.5-650 MG ORAL TABLET completed [...] E&M revi ewed - no changes required Abeilno Ny MD physical exercise, f requency, days [...] yes Chastity Kelli smoking status [facility] smoker [facility] e social history E&M Marital Statu s: L shoaib with family/friends E thnicity: Smoking History: Naren ames has never smoked. Cameron Ramírez MD social history reviewed E&M revi ewed - no changes required Cameron Ramírez MD physical exercise, f requency, days per week no Jocelyn Block alcohol use, average drinks per day none [facility] alcohol use no Jocelyn Block caffeine use, averag e drinks per day yes [facility] drug use none [facility] passive cigarette sm rodríguez exposure yes [facility] smoking status Never smoker [facility] social history E&M Marital Statu s: L shoaib with family/friends E thnicity: Smoking History: Naren ames has never smoked. Abelino Ny MD social history reviewed E&M revi ewed - no changes required Abelino Ny MD physical exercise, f requency, days per week no Esteban Gonzalez alcohol use, average drinks per day none [place] Gonzalez alcohol use no [place] Gonzalez caffeine use, averag e drinks per day yes Esteban Gonzalez drug use none Esteban Gonzalez passive cigarette sm rodríguez exposure [facility] Never smoker [facility] social history reviewed E&M revi ewed [...] Payer name Policy type / Coverage type [place] red libertarian ID [employer] O [id number] HEALTHCARE AND FAMILY SERVICES Medicaid 0 [id number] ADVANCE DIRECTIVES Name Date DISCUSSED - NO [...] opted to wait and meet with a mica sizer prior to undergoing any further testing. Abelino [...] She continues to follow Bariatric Surgery at [facility]. She continues to follow them and there [...] up: O rders: S TR - Adenosine (14674) C omplete Echo (CPT-96642) Abelino Ny MD follow up: O rders: S TR - Adenosine (20605) C omplete Echo (CPT-70401) Abelino Ny MD follow up: H er updated medication list for this problem includes: Metoprolol Tartrate Tabs (Metoprolol tartrate tabs) ..... 1 tab twice Orders: S TR - Adenosine (95944) C omplete Echo (CPT-84890) Abelino Ny MD follow up: O rders: S TR - Adenosine (27737) C omplete Echo (CPT-07614) Abelino Ny MD follow up: H er updated medication list for this problem includes: Metoprolol Tartrate Tabs (Metoprolol tartrate tabs) ..... 1 tab twice Orders: S TR - Adenosine (93169) C omplete Echo (CPT-22254) Abelino Ny MD follow up: H er updated medication list for this problem includes: Nitrostat 0.4 Mg Subl (Nitroglycerin) ..... One tab. under tongue as needed. may repeat twice in 10 minutes. Metoprolol Tartrate Tabs (Metoprolol tartrate tabs) ..... 1 tab twice Orders: E KG (CPT-50661) S TR - Adenosine (10156) C omplete Echo (CPT-30753) Abelino Ny MD office visit: T he [...] clearanc e for lap band surgery in [place], [place]. will order an adenosine myoview and [...] EKG Abelino Ny MD complet ed SNOMED-CT: [id number] 018565 Current Medications Documented Abelino Ny MD completed SNOMED-CT: 056220639 Smoking Cessation Counseling Abelino Ny MD completed SNOMED-CT: 82926388 Physical Exam, Performed: Pulse Exam of Foot Abelino Ny MD completed EKG Abelino Ny MD complet ed SNOMED-CT: 291307946 565623 Current Medications Documented Abelino Ny MD completed EKGalen Ny MD complet ed EKG Abelino Ny MD complet ed EKGalen Ny MD complet ed ePrescribe - Check t his box if eRx is used Abelino Ny MD completed EKG Abelino Ny MD complet ed EKG Abelino Ny MD complet ed EKGalen Ny MD complet ed
--- OUTSIDE RECORDS SUMMARY | 2024-10-19 11:06 | XMS_ITS | Clinical Summary ---
Author Organization [facility] Address [address] [place] [address] Care Team Providers Care Landscape Crew Leader Name Role Phone Unavailable Primary Care Provider [...] Comments Blood Pressure 135/88 08/02/2021 8:10 AM RETAIL ZONE SPECIALIST Pulse 105 08/02/2021 8:10 AM RETAIL ZONE SPECIALIST just walked back from bathroom Temperature 36.8 C (98.3 F) 08/02/2021 8:10 AM RETAIL ZONE SPECIALIST Respiratory Rate 17 08/02/2021 8:10 AM RETAIL ZONE SPECIALIST Oxygen Saturation 96% 08/02/2021 8:1 0 AM RETAIL ZONE SPECIALIST Inhaled Oxygen Concentration - - Weight 112.9 kg (249 lb) 08/02/2021 10: 00 AM RETAIL ZONE SPECIALIST Height 170.2 cm (5' 7 ) 07/19/2021 7:00 PM RETAIL ZONE SPECIALIST Body Mass Index 39 07/19/2021 7:00 PM RETAIL ZONE SPECIALIST Plan of Treatment Not on file Advance Directives * Full Resuscitation (Latest Code Status on File) Date Activated Date Inactivated Comments 07/19/2021 8:25 PM 08/02/2021 9:42 PM
--- OUTSIDE RECORDS SUMMARY | 2024-10-19 11:06 | XMS_ITS | Encounter Summary ---
Author Organization [facility] Address [address] [facility] [place] [address] Care Team Providers Care Slabber Name Role Phone Henry Ruiz DO Primary Care Provider [phone] Reason for Visit * Reason Onset Date [...] 02/26/2024 Telephone [facility] [address] [place] [address], [facility] [place] [id number] Nicholas Peacock MD [address] [place] [address] [place] [address] ABN Follow-Up (Pt called in c/o a [...] on file Legal Sex Female 12:37 PM RESEARCH AND DEVELOPMENT TESTER Gender Identity Not on file Sexual Orientation [...] st Contact Info) Description 05/04/2025 11:00 AM RESEARCH AND DEVELOPMENT TESTER Office Visit [facility] [address] [facility], [address] [place] [address] Blanca Kamara, LAST PULLER-ALUMINUM CAN COLLECTOR [address] [facility] [address] [place] [address] documented as of this encounter Goals Goal [...] on filedocumented in this encounter Care Teams Slabber Relationship Specialty Start Date End Date Henry Ruiz DO PCP - General Internal Medicine 10/12/15 documented as of this encounter
--- OUTSIDE RECORDS SUMMARY | 2024-10-19 11:06 | XMS_ITS | Referral Summary ---
Author Organization [facility] Address [facility] [place] [address] Care Team Providers Care Cuff Turner Machine Operator Name Role Phone Henry Ruiz DO Primary Care Provider [phone] Nicholas Peacock MD Unavailable [phone] Lolita Colon MD Unavailable [phone] Encounters Date Type Department Care Team Description 08/10/2024 9:30 AM HAND MOLD MAKER Office Visit [facility] Surgery [address] [place] [address] A [address] [place] [address] Gin Conte NP Status post panniculectomy (Primary Dx) from Last 3 Months Allergies Active Allergy [...] Diagnosed Date Atherosclerotic heart diseas e of [place] coronary artery without angina pectoris 07/15/2024 Other [...] on file Legal Sex Female 1:45 AM HAND MOLD MAKER Gender Identity Not on file Sexual Orientation Not on file Last Filed Vital Signs Vital Sign Reading Time Taken Comments Blood Pressure 111/62 05/17/2024 7:35 AM HAND MOLD MAKER Pulse 88 05/17/2024 8:20 AM HAND MOLD MAKER Temperature 36.7 C (98 F) 05/17/2024 7:35 AM HAND MOLD MAKER Respiratory Rate 18 05/17/2024 7:35 AM HAND MOLD MAKER Oxygen Saturation 98% 05/17/2024 7:35 AM HAND MOLD MAKER Inhaled Oxygen Concentration - - Weight 72 kg (158 lb 11.7 oz) 05/17/2024 6:13 AM HAND MOLD MAKER Height 167.6 cm (5' 6 ) 05/17/2024 6:13 AM HAND MOLD MAKER Body Mass Index 25.62 05/17/2024 6:13 AM HAND MOLD MAKER Plan of Treatment Not on file Medical Devices Implanted Type Area Belt Builder Helper Device Identifier Shelf Expiration Date Model / Serial / Lot [employer] Silvia Sealant Fibrin Patch [place] Set Frozen Prefilled Syringe Artiss 10ml [id number] - [id number] - [id number] Implanted:Qty: 1 on 05/12/2024 by Russell Louie MD at [facility] N/A: Abdomen [employer] Silvia 07/29/2025 [id number] / [id number] / [id number] Procedures Procedure Name Priority Date/Time Associated Diagnosis Comments EGFR Routine 05/17/2024 3:23 AM HAND MOLD MAKER HEPATITIS PANEL, ACUTE Timed 05/14/2024 1:34 PM HAND MOLD MAKER LIPID PANEL Routine 07/30/2023 8:51 AM HAND MOLD MAKER ALBUMIN CREATININE RATIO, URINE Routine 07/30/2023 8:51 AM HAND MOLD MAKER from Last 3 Months or Most Recently Relevant to Health Maintenance Results * eGFR (05/17/2024 3:23 AM HAND MOLD MAKER) eGFR >90 >=60 mL/min/1. 73 m2 Comment: [...] last reviewed 2021. Blood 05/17/2024 3:23 AM HAND MOLD MAKER 05/17/2024 4:05 AM HAND MOLD MAKER us Lolita Colon MD LAB BLOOD ORDERABLES Final Res ult ERICK VANCE [place]) 2 [facility] Department [place] [address] * Hepatitis panel, acute Blood (05/14/2024 1:34 PM HAND MOLD MAKER) Hep A IgM Nonreactive Nonreactive Comment: Interpretive Data: If Hep A IgM Ab is reported as Equivocal, a new sample should be drawn in two weeks for testing. Current interpretive data was last revised on 19. Testing performed by: [address] [address] Hep B core IgM Nonreactive Nonreactive Kat VANCE (BEHZAD) Comment: Interpretive Data If HepB Core IgM Ab is reported as Equivocal, a new sample should be drawn in two weeks for testing. Current interpretive data was last revised on 19. Testing performed by: [facility], [address] [place] [address]., [address] Hep C Ab Nonreactive Nonreactive ERICK VANCE [...] last revised on 2019. Testing performed by: [facility], [address] [place] [address]., [address] HepBsAg Nonreactive Nonreactive ERICK VANCE (BEHZAD) Comment:Testing performed by : [address] [address] Blood 05/14/2024 1:34 PM HAND MOLD MAKER 05/15/2024 9:46 AM HAND MOLD MAKER us Lolita Colon MD LAB MICROBIOLOGY - GENERAL ORD ERABLES Final Result ERICK VANCE (BEHZAD) 1 [facility] Department of Laboratories [place], [place] [id number] * Albumin Creatinine Ratio, Urine (07/30/2023 8:51 AM HAND MOLD MAKER) Albumin Ur <12.0 mg/L CERNER AM H (BEHZAD) Comment: Interpretive Data No reference range established. Current interpretive data was last revised 2018. Testing performed by: [address] [place]., [address] Creatinine Ur 75.1 mg/dL ERICK VANCE (BEHZAD) Comment: Interpretive Data No reference range established. Current interpretive data was last revised 2018. Testing performed by: [facility], [address] [place] [address]., [address] Albumin Creatinine Ratio, Ur <16 1 - 29 mg/g ERICK VANCE (BEHZAD) Comment:Testing performed by : [facility], [address] [place] [address]., [address] Urine 07/30/2023 8:51 AM HAND MOLD MAKER 07/30/2023 10:55 AM HAND MOLD MAKER us Rocio Wu NP LAB URINE ORDERABLES Final R esult ERICK VANCE (BEHZAD) 1 [facility] Department [place] [address] * Lipid panel (07/30/2023 8:51 AM HAND MOLD MAKER) Cholesterol 91 30 - 199 mg/dL ERICK [...] last revised on 2018. Chol/HDL ratio 2 SERANE Mert VANCE (BEHZAD) Blood 07/30/2023 8:51 AM HAND MOLD MAKER 07/30/2023 10:12 AM HAND MOLD MAKER us Rocio Wu TRAVELING CONSTRUCTION SUPERINTENDENT LAB BLOOD ORDERABLES Final R esult [facility] ([place]) 1 [facility] Department [place] [address] from Last 3 Months or Most Recently Relevant to Health Maintenance Insurance [facility] MEDICARE ADVANTAGE [facility] Address: [facility] [address] [place] [address] IDPA [facility] MEDICARE ADVANTAGE [facility] Address: [address] [address] [place] [address] IDPA Care Teams Cuff Turner Machine Operator Relationship Specialty Start Date End Date Henry Ruiz DO PCP - General Internal Medicine 12/09/21 Nicholas Peaccok MD [address] [facility] [address] [place] [address] Surgeon Neurosurgery 02/19/22 Lolita Colon MD [address] [facility] [place] [address] Consulting Physician Internal Medicine 05/16/24
--- OUTSIDE RECORDS SUMMARY | 2024-10-19 11:06 | XMS_ITS | Encounter Summary ---
Author Organization [facility] Address [address] [place] [address] Care Team Providers Care Mushroom Sorter Grader Name Role Phone Henry Ruiz DO Primary Care Provider [phone] Encounter Details Date Type Department Care Team (Late st Contact Info) Description 12/14/2017 Telephone [facility] [address] [place] [address] Nicholas Peacock MD [address] [address] Social History Tobacco Use Types Packs/Day Years Used Date Smoking Tobacco: Never Smokeless Tobacco: Never Alcohol Use Standard Drinks/Week Comments No 0 (1 standard drink = 0.6 oz pur e alcohol) 1-2 X A YEAR IF THAT Comments No Sex and Gender Information Value Date Recorded Sex Assigned at Not on file Legal Sex Female 12:37 PM DOUBLER HELPER Gender Identity Not on file Sexual Orientation [...] st Contact Info) Description 05/04/2025 11:00 AM DOUBLER HELPER Office Visit [facility] [address] [address] Blanca Kamara, CHIEF HUMAN RESOURCES OFFICER-[facility] [address] [facility] [address] [place], [place] [id number] documented as of this encounter Visit Diagnoses Not on filedocumented in this encounter Additional Health Concerns Infection Onset Date Last Indicated Resolved Time COVID-19 Confirmed 07/07/2021 07/07/2021 2 4:33 AM DOUBLER HELPER documented as of this encounter Care Teams Mushroom Sorter Grader Relationship Specialty Start Date End Date Henry Ruiz DO PCP - General Internal Medicine 10/12/15 documented as of this encounter
== END 2024-10-19 09:51 | disposition home or self-care (01) ==
LOC: ANHSURGERY 09:53
PROVIDERS: Anesthesiology; PCP Internal Medicine; Visit Provider Orthopaedic Surgery
DX: Z01.818 Encounter for other preprocedural examination (principal); D64.9 Anemia, unspecified; I10 Essential (primary) hypertension; R94.31 Abnormal electrocardiogram [ECG] [EKG]
CPT/HCPCS: 36415; 85014; 85018; 93005

== ENCOUNTER 2024-10-21 02:44 | Day surgery (SDC) | payer MEDICARE, MEDICAID, SELFPAY ==
[2024-10-17 10:16] VITALS: BMI 23.8
--- NOTE | 2024-10-17 10:23 | PC.NURSE ---
Report to the Outpatient Waiting Room, entrance under the green pavilion located off [facility], at time _1230_ on date _[id number]_. Planned Procedure Time: _230pm_.? Time changes happen often and if your time is changed the preop area will call you the afternoon before. - You and your visitor will be asked to self-screen and do not enter if you have any COVID symptoms. Please call surgeon if you need to reschedule. - A mask is optional within the hospital at this time. Patients may have clear liquids (water, carbonated beverages, clear teas, apple juice) until 3 hours prior to surgery with a maximum of 20 ounces. - No food from midnight until time of surgery and no smoking, or chewing tobacco (or any form of nicotine). No chewing gum, candy or mints. Take only the following medications with a SIP of water on the morning of surgery: __Duloxetine and if needed pain medication. DO NOT STOP ANY OF YOUR OTHER PRESCRIPTION MEDICATIONS PRIOR TO SURGERY EXCEPT THE FOLLOWING Hold all vitamins and supplements for 3 days per anesthesiologist. Medications to discontinue per physician Date to take last juwe___[id number] Please no make-up, nail [place], hairspray, perfume, deodorant, or body powder the day of surgery.? No jewelry (including any body piercings) or valuables the day of surgery, leave them at home.? Please take a shower or bath the night before, or the morning of, surgery with an antibacterial soap.? Wear comfortable, loose fitting clothing.? - Jewelry must be removed prior to entering the operating room.? Rings and piercings that are not removed may be cut off. - The hospital will not accept responsibility for valuables.? - Please leave all valuables, including medications, at home the day of surgery. If you are going home after surgery, a licensed driver/guide must drive you home.? - NO public transportation without another adult if you receive anesthesia. - We recommend that an adult stay with you for 24 hours following discharge. - We also recommend that you do not drive, make important decision, drink alcoholic beverages, or take any drugs that were not prescribed by your health care provider for at least 24 hours after your discharge time. Follow any additional instructions given to you from your surgeon. Telephone instructions given to __Shannon__and asked if any additional questions and then verbalized understanding. Patient advised to call surgeon office or pre surgery nurse liaison [phone] if any additional questions.
[2024-10-21] VITALS (9 sets, daily range): BP systolic 107–136; BP diastolic 60–82; PULSE 59–94; RESP 13–21; TEMP 36.3–36.9; O2SAT 95–100
--- OUTSIDE RECORDS SUMMARY | 2024-10-21 02:48 | XMS_ITS | Encounter Summary ---
Author Organization [facility] Address [address] [facility] [place] [address] Care Team Providers Care Pattern Duplicator Name Role Phone Henry Ruiz DO Primary Care Provider [phone] Encounter Details Date Type Department Care Team (Latest Contact Info) Description 07/19/2021 2:23 PM ASSOCIATE FINANCIAL ANALYST Hospital Encounter [place] [id number] Katie Tran MD [facility] Social History [...] on file Legal Sex Female 12:37 PM ASSOCIATE FINANCIAL ANALYST Gender Identity Not on file Sexual Orientation [...] st Contact Info) Description 05/04/2025 11:00 AM ASSOCIATE FINANCIAL ANALYST Office Visit [facility] [address] [address] Blanca Kamara, BUSINESS CONTINUITY SPECIALISTWIRE REPAIRER [address] [facility] [address] [place] [address] documented as of this encounter [...] on filedocumented in this encounter Care Teams Pattern Duplicator Relationship Specialty Start Date End Date Henry Ruiz DO PCP - General Internal Medicine 10/12/15 documented as of this encounter
--- OUTSIDE RECORDS SUMMARY | 2024-10-21 02:48 | XMS_ITS | Encounter Summary ---
Author Organization [facility] Address [address] [place] [place] [address] Care Team Providers Care Money Manager Name Role Phone Henry Ruiz DO Primary Care Provider [phone] Encounter Details Date Type Department Care Team (Late st Contact Info) Description 12/14/2017 Telephone [facility] [address] [place] [address] Nicholas Peacock MD [address] [place] [address] Social History Tobacco Use Types Packs/Day Years Used Date Smoking Tobacco: Never Smokeless Tobacco: Never Alcohol Use Standard Drinks/Week Comments No 0 (1 standard drink = 0.6 oz pur e alcohol) 1-2 X A YEAR IF THAT Comments No Sex and Gender Information Value Date Recorded Sex Assigned at Not on file Legal Sex Female 12:37 PM LEAD PROJECT MANAGER Gender Identity Not on file Sexual Orientation [...] st Contact Info) Description 05/04/2025 11:00 AM LEAD PROJECT MANAGER Office Visit [facility] [address] [address] Blanca Kamara, AUTOMOTIVE [facility] [address] [facility] [address] [place], [place] [id number] documented as of this encounter Visit Diagnoses Not on filedocumented in this encounter Additional Health Concerns Infection Onset Date Last Indicated Resolved Time COVID-19 Confirmed 07/07/2021 07/07/2021 2 4:33 AM LEAD PROJECT MANAGER documented as of this encounter Care Teams Money Manager Relationship Specialty Start Date End Date Henry Ruiz DO PCP - General Internal Medicine 10/12/15 documented as of this encounter
--- OUTSIDE RECORDS SUMMARY | 2024-10-21 02:48 | XMS_ITS | Referral Summary ---
Author Organization [facility] Address [facility] [place] [address] Care Team Providers Care Survey Research Center Director Name Role Phone Henry Ruiz DO Primary Care Provider [phone] Nicholas Peacock MD Unavailable [phone] Lolita Colon MD Unavailable [phone] Encounters Date Type Department Care Team Description 08/10/2024 9:30 AM HAWK MISSILE AIR DEFENSE ARTILLERY Office Visit [facility] Surgery [address] [place] [address] [address] [place] [address] Gin Conte NP Status post [...] Diagnosed Date Atherosclerotic heart diseas e of [place] coronary artery without angina pectoris 07/15/2024 Other [...] on file Legal Sex Female 1:45 AM HAWK MISSILE AIR DEFENSE ARTILLERY Gender Identity Not on file Sexual Orientation Not on file Last Filed Vital Signs Vital Sign Reading Time Taken Comments Blood Pressure 111/62 05/17/2024 7:35 AM HAWK MISSILE AIR DEFENSE ARTILLERY Pulse 88 05/17/2024 8:20 AM HAWK MISSILE AIR DEFENSE ARTILLERY Temperature 36.7 C (98 F) 05/17/2024 7:35 AM HAWK MISSILE AIR DEFENSE ARTILLERY Respiratory Rate 18 05/17/2024 7:35 AM HAWK MISSILE AIR DEFENSE ARTILLERY Oxygen Saturation 98% 05/17/2024 7:35 AM HAWK MISSILE AIR DEFENSE ARTILLERY Inhaled Oxygen Concentration - - Weight 72 kg (158 lb 11.7 oz) 05/17/2024 6:13 AM HAWK MISSILE AIR DEFENSE ARTILLERY Height 167.6 cm (5' 6 ) 05/17/2024 6:13 AM HAWK MISSILE AIR DEFENSE ARTILLERY Body Mass Index 25.62 05/17/2024 6:13 AM HAWK MISSILE AIR DEFENSE ARTILLERY Plan of Treatment Not on file Medical Devices Implanted Type Area Note Keeper Device Identifier Shelf Expiration Date Model / Serial / Lot [employer] Silvia Sealant Fibrin Patch [place] Set Frozen Prefilled Syringe Artiss 10ml [id number] - [id number] - [id number] Implanted:Qty: 1 on 05/12/2024 by Russell Louie MD at [facility] N/A: Abdomen [employer] Silvia 07/29/2025 [id number] / [id number] / [id number] Procedures Procedure Name Priority Date/Time Associated Diagnosis Comments EGFR Routine 05/17/2024 3:23 AM HAWK MISSILE AIR DEFENSE ARTILLERY HEPATITIS PANEL, ACUTE Timed 05/14/2024 1:34 PM HAWK MISSILE AIR DEFENSE ARTILLERY LIPID PANEL Routine 07/30/2023 8:51 AM HAWK MISSILE AIR DEFENSE ARTILLERY ALBUMIN CREATININE RATIO, URINE Routine 07/30/2023 8:51 AM HAWK MISSILE AIR DEFENSE ARTILLERY from Last 3 Months or Most Recently Relevant to Health Maintenance Results * eGFR (05/17/2024 3:23 AM HAWK MISSILE AIR DEFENSE ARTILLERY) eGFR >90 >=60 mL/min/1. 73 m2 Comment: [...] last reviewed 2021. Blood 05/17/2024 3:23 AM HAWK MISSILE AIR DEFENSE ARTILLERY 05/17/2024 4:05 AM HAWK MISSILE AIR DEFENSE ARTILLERY us Lolita Colon MD LAB BLOOD ORDERABLES Final Res ult ERICK VANCE [place]) 4 [facility] Department [place] [address] * Hepatitis panel, acute Blood (05/14/2024 1:34 PM HAWK MISSILE AIR DEFENSE ARTILLERY) Hep A IgM Nonreactive Nonreactive Comment: Interpretive Data: If Hep A IgM Ab is reported as Equivocal, a new sample should be drawn in two weeks for testing. Current interpretive data was last revised on 19. Testing performed by: [address] [address] Hep B core IgM Nonreactive Nonreactive Kat VANCE (BEHZAD) Comment: Interpretive Data If HepB Core IgM Ab is reported as Equivocal, a new sample should be drawn in two weeks for testing. Current interpretive data was last revised on 19. Testing performed by: [facility], [address] [place] [address]., [address] Hep C Ab Nonreactive Nonreactive ERICK VANCE [...] last revised on 2019. Testing performed by: [facility], [address] [place] [address]., [address] HepBsAg Nonreactive Nonreactive ERICK VANCE (BEHZAD) Comment:Testing performed by : [address] [address] Blood 05/14/2024 1:34 PM HAWK MISSILE AIR DEFENSE ARTILLERY 05/15/2024 9:46 AM HAWK MISSILE AIR DEFENSE ARTILLERY us Lolita Colon MD LAB MICROBIOLOGY - GENERAL ORD ERABLES Final Result ERICK VANCE (BEHZAD) 1 [facility] Department of Laboratories [place], [place] [id number] * Albumin Creatinine Ratio, Urine (07/30/2023 8:51 AM HAWK MISSILE AIR DEFENSE ARTILLERY) Albumin Ur <12.0 mg/L [facility] AM H (BEHZAD) Comment: Interpretive Data No reference range established. Current interpretive data was last revised 2018. Testing performed by: [address] [place]., [address] Creatinine Ur 75.1 mg/dL ERICK VANCE (BEHZAD) Comment: Interpretive Data No reference range established. Current interpretive data was last revised 2018. Testing performed by: [facility], [address] [place] [address]., [address] Albumin Creatinine Ratio, Ur <16 1 - 29 mg/g ERICK VANCE (BEHZAD) Comment:Testing performed by : [facility], [address] [place] [address]., [address] Urine 07/30/2023 8:51 AM HAWK MISSILE AIR DEFENSE ARTILLERY 07/30/2023 10:55 AM HAWK MISSILE AIR DEFENSE ARTILLERY us Rocio Wu NP LAB URINE ORDERABLES Final R esult ERICK VANCE ([place]) 1 [facility] Department [place] [address] * Lipid panel (07/30/2023 8:51 AM HAWK MISSILE AIR DEFENSE ARTILLERY) Cholesterol 91 30 - 199 mg/dL ERICK [...] Mert VANCE (BEHZAD) Blood 07/30/2023 8:51 AM HAWK MISSILE AIR DEFENSE ARTILLERY 07/30/2023 10:12 AM HAWK MISSILE AIR DEFENSE ARTILLERY us Rocio Wu APPLICATIONS SPECIALIST LAB BLOOD ORDERABLES Final R esult [facility] ([place]) 1 [facility] Department [place] [address] from Last 3 Months or Most Recently Relevant to Health Maintenance Insurance [facility] MEDICARE ADVANTAGE IDPA [facility] MEDICARE ADVANTAGE IDPA Care Teams Survey Research Center Director Relationship Specialty Start Date End Date Henry Ruiz DO PCP - General Internal Medicine 12/09/21 Nicholas Peacock MD [address] [facility] [address] [place] [address] Surgeon Neurosurgery 02/19/22 Lolita Colon MD [address] [facility] [place] [address] Consulting Physician Internal Medicine 05/16/24
--- OUTSIDE RECORDS SUMMARY | 2024-10-21 02:48 | XMS_ITS | Encounter Summary ---
Author Organization [facility] Address [address] [place] [address] Care Team Providers Care Route Sales Delivery Drivers Supervisor Name Role Phone Unavailable Primary Care Provider Unavailabl e Encounter Details Date Type Department Care Team (Late st Contact Info) Description 12/04/2018 Abstract [facility] CONVERSION [address] [place] [address] , Generic Conversion, Social History Tobacco Use [...]
--- OUTSIDE RECORDS SUMMARY | 2024-10-21 02:48 | XMS_ITS | Clinical Summary ---
Author Organization [facility] [employer] Address [address] [place] [address] Care Team Providers Care Firestopper Installer Name Role Phone Henry Ruiz DO Primary Care Provider [phone]- [phone] Source Comments [facility] [employer],non-owned Affiliates and Associated Physician Practices is amultiple site organization consisting of ambulatory clinics and hospital sitesin [place], [place], [place] and [place]. This disclosure is being madepursuant to the Care Everywhere program and may not contain all information available regarding this patient. Last updated 18.[facility] [employer] [facility] Allergies Active Allergy Reactions Criticality Noted Date [...] once daily 03/17/20 22 Active nystatin (Mycostatin) 728314 UNIT/GM cream Apply to affected area 2 [...] Department Care Team Description 08/30/2024 11:15 AM SAMPLE SAWYER Office Visit [facility] - Neurosurgery [address], [place] [address] Nicholas Peacock MD Cerebral aneurysm (Primary Dx) 08/30/2024 9:25 AM SAMPLE SAWYER - 08/30/2024 11:59 PM SAMPLE SAWYER Hospital Encounter [facility] CAT SCAN [address] [place] [address] Nicholas Peacock MD Discharge Disposition: Home or Self Care 08/30/2024 Travel 08/26/2024 Refill [facility] [address] [place] [address] Hortensia Covington, QUAIL FARMER-MEDICAL DATA ENTRY CLERK Refill Request from Last 3 Months Family [...] on file Legal Sex Female 12:37 PM SAMPLE SAWYER Gender Identity Not on file Sexual Orientation Not on file Occupation Industry Job Start Date Job End Date DISABLED Not on file Not on file Not on file Last Filed Vital Signs Vital Sign Reading Time Taken Comments Blood Pressure 110/71 08/30/2024 11:35 AM SAMPLE SAWYER Pulse 73 08/30/2024 11:35 AM SAMPLE SAWYER Temperature 36.8 C (98.2 F) 08/30/2024 11:35 AM SAMPLE SAWYER Respiratory Rate 14 12/14/2023 8:20 AM CDT Oxygen Saturation 98% 08/30/2024 11:35 AM SAMPLE SAWYER Inhaled Oxygen Concentration - - Weight 70.8 kg (156 lb) 08/30/2024 11:35 AM SAMPLE SAWYER Height 167.6 cm (5' 6 ) 08/30/2024 11:35 AM SAMPLE SAWYER Body Mass Index 25.18 08/30/2024 11:35 AM SAMPLE SAWYER Plan of Treatment Upcoming Encounters Date Type Department Care Team (Late st Contact Info) Description 05/04/2025 11:00 AM SAMPLE SAWYER Office Visit [facility] [address] [facility] [address] [place] [address] Blanca Kamara, QUAIL FARMER-MEDICAL DATA ENTRY CLERK [address] [facility] [address] [place] [address] Health Maintenance Due Date Last [...] last dose Medical Devices Implanted Type Area Bucket Operator Device Identifier Shelf Expiration Date Model / Serial / Lot Set Xtrn Drn 35cm 1.9mm 3-15cm Cath Inr Implanted:Qty: 1 on 07/08/2021 by Nicholas Peacock MD at [facility] N/A: Cranial [employer] 02/26/2022 82-1750 / / [id number] Sugita Titanium Aneurysm Clip Implanted:Qty: 1 on 07/08/2021 by Nicholas Peacock MD at [facility] Right: Cranial [facility] Seema 17-001-33 / 101SDCH / 101-SD Sugita Titanium Aneurysm Clip Implanted:Qty: 1 on 07/08/2021 by Nicholas Peacock MD at [facility] Right: Cranial [facility] Se[facility] 17-001-87 / 38-TK / [id number] Graft Tissue Drgn + Bvn Clgn Mtrx 5x4in Implanted:Qty: 1 on 07/08/2021 by Nicholas Peacock MD at [facility] N/A: Cranial [employer] 01/27/2024 [id number] / / [id number] Plate 2 Hl Lopro Crnmxf 15mm Str Lucio Implanted:Qty: 2 on 07/08/2021 by Nicholas Peacock MD at [facility] N/A: Cranial [employer] 19-1005 / / Plate 4 Hl Lopro Crnmxf 22mm Lng Str Implanted:Qty: 1 on 07/08/2021 by Nicholas Peacock MD at [facility] N/A: Cranial [employer] -1045 / / Cover Bur Hl 13.5mm Spne Bnt Implanted:Qty: 2 on 07/08/2021 by Nicholas Peacock MD at [facility] N/A: Cranial [employer] 19-1019 / / Screw 1.5mm 4mm Slf Drl Xdr Crnmxf Implanted:Qty: 12 on 07/08/2021 by Nicholas Peacock MD at [facility] N/A: Cranial [employer] 91-6704 / / Explanted Type Area Bucket Operator Device Identifier Shelf Expiration Date Model / Serial / Lot Cover Bur Hl 13.5mm Spne Bnt Explanted:Qty: 1 on 07/08/2021 by Nicholas Peacock MD at [facility] N/A: Cranial [employer] 19-1019 / / Screw 1.5mm 4mm Slf Drl Xdr Crnmxf Explanted:Qty: 1 on 07/08/2021 by Nicholas Peacock MD at [facility] N/A: Cranial [employer] 91-6704 / / Sugita Titanium Aneurysm Clip Explanted:Qty: 1 on 07/08/2021 by Nicholas Peacock MD at [facility] Right: Cranial Abundio Stephenson 17-006-27 / [id number] / 24-TK Procedures Procedure Name Priority Date/Time Associated Diagnosis Comments CT ANGIO BRAIN Routine 08/30/2024 9:45 AM SAMPLE SAWYER Cerebral aneurysm CREATININE - POCT INTERFACED Routine 08/30/2024 9:32 AM SAMPLE SAWYER EYE EXAM 03/10/2022 HEPATITIS C ANTIBODY Routine 05/17/2021 10:52 AM SAMPLE SAWYER Abnormal LFTs from Last 3 Months or Most Recently Relevant to Health Maintenance Results * CT ANGIO BRAIN (08/30/2024 9:45 AM SAMPLE SAWYER) Anatomical Region Laterality Modality Head Computed Tomogra phy 08/30/2024 1:29 PM SAMPLE SAWYER Impressions 08/30/2024 1:43 PM SAMPLE SAWYER IMPRESSION: 1. No acute intracranial hemorrhage. Redemonstration of postoperative changes. 2. Accounting for the beam hardening and streak artifacts from the aneurysm clips, no evidence of a recurrent aneurysm in the right posterior cerebral artery. > Interpreting Provider: Sergo Ernst MD on 08/30/2024 1:43 PM Narrative 08/30/2024 1:43 PM SAMPLE SAWYER PROCEDURE: CT ANGIO BRAIN, DATE/TIME OF EXAM: 08/30/2024 9:48 AM, LOCATION [facility] INDICATION: I67.1: Cerebral aneurysm (HCC) ADDITIONAL [...] DATE/TIME OF EXAM: 08/30/2024 9:48 AM, LOCATION [facility] INDICATION: I67.1: Cerebral aneurysm (HCC) ADDITIONAL [...] CREATININE - POCT INTERFACED (08/30/2024 9:32 AM SAMPLE SAWYER) Pathologist [facility] [place] Creatinine POCT 0.58 0.30 - 1.30 mg/dL 08/30/2024 9:33 AM [facility] eGFR >90 >=90 mL/min/1.7 3 m2 08/30/2024 9:33 AM [facility] Blood BLOOD SPECIMEN / Unknown 08/30/2024 9:32 AM SAMPLE SAWYER 08/30/2024 9:33 AM SAMPLE SAWYER us Nicholas Peacock MD LAB - POINT OF CARE ORDERABL ES Final Result Performing Organization Address City/State/[facility] Co de Phone Number [address] [address], [facility] [phone] * EYE EXAM (03/10/2022) Anatomical Region Laterality Modality Other Narrative 03/10/2022 Ordered by an unspecified provider. us Scanned Document SCANNING ONLY Final Result * HEPATITIS C ANTIBODY (05/17/2021 10:52 AM SAMPLE SAWYER) Pathologist [facility] [place] Hepatitis C Antibody Non-react curtis Non-reac tive 05/17/2021 12:48 PM SAMPLE SAWYER [facility] Comment:Hepatitis C Antibody screen indicates [...] Lab Venipuncture / Unknown 05/17/2021 10:52 AM SAMPLE SAWYER 05/17/2021 11:49 AM SAMPLE SAWYER Ori Zarco MD LAB - CHEMISTRY YOLANDE FRAGA Final Result [facility] [address] [place] [address], [facility] [phone] from Last 3 Months or Most Recently Relevant to Health Maintenance Insurance MEDICAID [place] UHC MANAGED MEDICARE ADV [facility]ICA[facility] Advance Directives * Full Code (Latest [...] 10:55 AM 12/02/2015 1:56 PM Care Teams Firestopper Installer Relationship Specialty Start Date End Date Henry Ruiz DO PCP - General Internal Medicine 10/12/15
--- OUTSIDE RECORDS SUMMARY | 2024-10-21 02:48 | XMS_ITS | Data Portability ---
Author Organization [place] [facility] [employer], Main Office Address [address] [place] [address] Care Team Providers Care Gas Manager Name Role Phone WILLIAM MELENDEZ Primary Care [...] a dose pack 2022 023 eduardo [address] [employer] [id number], [address], [place], [place], [id number], 3 13:39:32 Patient TargetsNo targets recorded. Patient InstructionsNo instructions recorded. Reason for Referral None Reported. Results Created Date Observation Date Name Description Value Unit Range Abnormal Flag Note LastModifiedBy Organization Detail LastModifiedTime 03/11/20 21 03/11/2021 COVID -19 (SARS COV-2 ) RNA, HNOG covid-19 RNA negati ve This test has [...] provi ders and patie nts at the [facility] te: https ://gl oalpo intof care. abbot t/en/ produ ct-de tails /id-n ow-co vid-1 9.htm l Metho dolog y: Isoth ermal Nucle ic Acid Ampli ficat ion Not Available [facility] (Lab) [address], [place], [address], 03/11/2021 15:05:04 02/08/20 21 XR, foot No observ ation record ed. [id number] [facility] [place] [address], [place], [address], 08/27/2022 12:59:30 02/13/20 21 XR, knee No observ ation record ed. [id number] [facility] [place] [address], [place], [address], 08/27/2022 12:59:30 03/28/20 XR, foot, 3 or more view No observ ation record ed. [id number] [facility] [address], [place], [address], 08/27/2022 12:59:30 04/18/20 21 XR, foot, 3 or more view No observ ation record ed. [id number] [facility] [address], [place], [address], 08/27/2022 12:59:30 12/18/19 23 emerg ency dept. 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 Not Available [facility] 3 12:54:37 Knee pain Active Not Available [facility] 3 12:54:38 Pain in right foot 9648654898260 07 Active 2020 Not Available [facility] 3 12:54:38 Hypertensi ve disorder 31845619 Active 2016 Not Available [facility] 3 12:54:38 Osteoarthr itis 733195379 Active Not Available [facility] 3 12:54:38 Foot pain 54870931 Active 2020 Not Available [facility] 3 12:54:38 Derangemen t of knee 55824296 Active Not Available [facility] 3 12:54:38 Acid reflux 490932322 Active 2016 Not Available [facility] 3 12:54:38 Pain in limb 45371422 Active Not Available [facility] 3 12:54:38 Pain of left ankle joint 0293395040326 9103 Active 2022 Ange Alvarado [facility] [employer] 3 13:22:10 Pain of left knee joint 1227335637031 07 Active 2022 Omar Goodson MD [address], [address] , [facility] 3 13:37:30 Sprain of left ankle 3973718332435 9105 Active 2022 Omar Goodson MD [address] [place] [address], [place], [address] , [place] [employer] [facility] [employer] [facility] 3 13:37:37 Problem Notes None recorded. Procedures Surgical History Date Name Laterality Status Provider Name and Address Organization Details Recorded Time 2 Brain Surgery completed Ange Jenny Thotz [facility] [employer] 12/25/2022 13:19:36 [facility] 12/25/2022 13:19:57 Toe completed [facility] 12/25/2022 13:20:15 Imaging Results Imaging Date Name Status [facility]Modified by [facility] Details LastModified Time 02/07/2021 XR, foot completed [id number] 026 [facility] [address], [place], [address], 08/27/2022 12:59:30 02/12/2021 XR, knee completed [id number] 026 [facility] [address], [place], [address], 08/27/2022 12:59:30 03/28/2021 XR, foot, 3 or more view completed [id number] [facility] [address], [place], [address], 08/27/2022 12:59:30 04/18/2021 XR, foot, 3 or more view completed [id number] [facility] [address], [place], [address], 08/27/2022 12:59:30 12/17/2022 emergency dept. visit* completed [...] Name and Address Organization Details Recorded Time 26689 Non-stero idal anti-infl ammatory agent (product) medicatio n Not available Not available Not available 08/27/2022 54671 005 SNOMED Not Available [facility] 3 12:59:24 28855 morphine medicatio n Not available Not available Not available 12/25/2022 7052 RxNorm mouth ulcer s Ange Alvarado [facility], [place] [facility] 3 13:09:00 Medications Name Sig Start Date [...] office by the doctor 12/25 completed NDC: [id number] 001 Not Available Not Available Not Available [...] Updated DateTime 02/12/2021 40.7 kg/m2 170.18 cm 354037.02 g Not Available [employer] 08/27/2022 12:53:39 Date Recorded Body mass index (BMI) Body height Heart rate Body weight Systolic blood pressure Diastolic blood pressure Provider Name and Address Organization Details Last Updated DateTime 1 40.7 kg/m2 170.18 cm 88 /min 586235. 02 g 140 mm[Hg] 110 mm[Hg] Not Available [facility] 3 12:53:37 Date Recorded Body mass index (BMI) Body height Heart rate Body weight Systolic blood pressure Diastolic blood pressure Provider Name and Address Organization Details Last Updated DateTime 1 40.7 kg/m2 170.18 cm 88 /min 759994. 02 g 140 mm[Hg] 110 mm[Hg] Not Available [facility] 3 12:53:37 Date Recorded Body mass index (BMI) Body height Body weight Provider Name and Address Organization Details Last Updated DateTime 04/18/2021 40.7 kg/m2 170.18 cm 307385.02 g Not Available [facility] 08/27/2022 12:53:39 Date Recorded Body height Body mass index (BMI) Body weight Provider Name and Address Organization Details Last Updated DateTime 12/25/2022 170.18 cm 35.2 kg/m2 900687.28 g Ange Alvarado [facility] [employer] [facility] 12/25/2022 13:07:53 Social History Question Answer Notes LastModified by Organizat ion Details LastModified Time Tobacco Smoking Status Never Smoker Not Available [facility] 08/27/2022 12:52:22 What Is Your Level Of Alcohol Consumption? None [id number] Information not available 08/27/2022 Have You Recently Traveled Abroad? No [id number] 26 Information not available 08/27/2022 Sex: Unknown Functional Status None recorded. Mental Status None recorded. Family History Relationship Description Onset Age of this Age Resolved Age Notes LastModified by Organization Details LastModified Time Mother Kidney disease [id number] Not available 08/27/2022 12:52:31 Medical History Condition Response ARTHRITIS Y USE OF BLOOD THINNERS Y BLOOD CLOTS Y HAVE YOU BEEN HOSPITALIZED OR SEEN IN [facility] IN THE PAST YEAR ? Y HEADACHES/MIGRAINES Y HYPERTENSION Y ANEMIA/BLOOD DISORDER Y Gynecological HistoryNo gynecological history recorded. Obstetrics History GPAL:G 0 P 0 0 0 0 Past Encounters Encounter ID Performer Location Encounter Start Date Encounter Closed Date Diagnosis/Indication Diagnosis SNOMED-CT Code Diagnosis ICD10 Code Diagnosis Note [id number] [facility] [place] [address] [place] [address] 02/07/2021 00:00:00 02/08/2021 09:16:25 [id number] [facility] [place] [address] [place] [address] 02/12/2021 00:00:00 02/12/2021 12:05:36 [id number] [facility] [place] [address] [place] [address] 03/21/2021 00:00:00 03/24/2021 14:39:24 [id number] [facility] [place] [address] [place] [address] 03/28/2021 00:00:00 03/28/2021 15:42:50 [id number] [facility] [place] [address] [place] [address] 04/18/2021 00:00:00 04/22/2021 10:37:35 [id number] Omar Goodson MD [facility] [place] [address] [place] [address] 12/25/2022 12:36:13 12/25/2022 13:37:49 Pain of left ankle joint 3628155441 3542041 M25.572 Sprain of left ankle 827 0594449 3050158 S93.402A Pain of le ft knee joint 8075488627 22469 M25.562 Health Concerns Section Related Observation LastModified by Organization Detai ls LastModified Time None Recorded Concern Status LastModified by Organization Details LastModified Time None Recorded Advance Directives Directive None Recorded Payers Encounter Date Sequence Insurance Name Policy Number Policy Ramirez Covered Member ID Ramirez Member ID Guarantor Name 12/25/2022 1 [facility] (MEDICARE REPLACEMENT/AD VANTAGE - PPO) [id number] Dory Barnes [id number] Dory Barnes 12/25/2022 2 [place] WHEN MEDICARE OR MEDICARE REPLACEMENT PRIMARY) Dory Barnes [id number] Dory Barnes Notes Date Note Type Note [...] her ankle are unremarkable. Omar Goodson MD [address] [place] [address], [place], [address], [place] [facility] [employer] 12/25/2022 13:39:29 OBGyn Episode No OBEpisode recorded.
--- OUTSIDE RECORDS SUMMARY | 2024-10-21 02:48 | XMS_ITS | Clinical Summary ---
Author Organization [facility] Address [facility] [place] [address] Care Team Providers Care Solar Energy Systems Engineer Name Role Phone Unavailable Primary Care [...]
--- OUTSIDE RECORDS SUMMARY | 2024-10-21 02:48 | XMS_ITS | Clinical Summary ---
Author Organization [facility] Address [address] [place] [address] Care Team Providers Care Pipelines Superintendent Name Role Phone Unavailable Primary Care Provider [...] Comments Blood Pressure 135/88 08/02/2021 8:10 AM DUPLICATING MACHINE OPERATOR Pulse 105 08/02/2021 8:10 AM DUPLICATING MACHINE OPERATOR just walked back from bathroom Temperature 36.8 C (98.3 F) 08/02/2021 8:10 AM DUPLICATING MACHINE OPERATOR Respiratory Rate 17 08/02/2021 8:10 AM DUPLICATING MACHINE OPERATOR Oxygen Saturation 96% 08/02/2021 8:1 0 AM DUPLICATING MACHINE OPERATOR Inhaled Oxygen Concentration - - Weight 112.9 kg (249 lb) 08/02/2021 10: 00 AM DUPLICATING MACHINE OPERATOR Height 170.2 cm (5' 7 ) 07/19/2021 7:00 PM DUPLICATING MACHINE OPERATOR Body Mass Index 39 07/19/2021 7:00 PM DUPLICATING MACHINE OPERATOR Plan of Treatment Not on file Advance Directives * Full Resuscitation (Latest Code Status on File) Date Activated Date Inactivated Comments 07/19/2021 8:25 PM 08/02/2021 9:42 PM
--- OUTSIDE RECORDS SUMMARY | 2024-10-21 02:48 | XMS_ITS | Encounter Summary ---
Author Organization [facility] Address [address] [facility] [place] [address] Care Team Providers Care Lip Cutter Name Role Phone Henry Ruiz DO Primary Care Provider [phone] Reason for Visit * Reason Onset Date [...] 02/26/2024 Telephone [facility] - Neurosurgery [address] [place] [address], [facility] [place] [address] Nicholas Peacock MD [address] [place] [address] [place] [address] ABN Follow-Up (Pt called in c/o a [...] on file Legal Sex Female 12:37 PM PONY CYLINDER PRESS OPERATOR Gender Identity Not on file [...] st Contact Info) Description 05/04/2025 11:00 AM PONY CYLINDER PRESS OPERATOR Office Visit [facility] [address] [facility] [facility] [place] [address] Blanca Kamara, CHIEF OF INTERNAL MEDICINE-PHOTO PRODUCER [id number] [facility] [address] [place] [address] documented as of this encounter Goals Goal [...] on filedocumented in this encounter Care Teams Lip Cutter Relationship Specialty Start Date End Date Henry Ruiz DO PCP - General Internal Medicine 10/12/15 documented as of this encounter
--- OUTSIDE RECORDS SUMMARY | 2024-10-21 02:48 | XMS_ITS | Clinical Summary ---
Author Organization [facility] Address [address] [place] [phone] Care Team Providers Care Hogshead Hooper Name Role Phone Henry Ruiz DO Primary Care Provider [phone] Nicholas Peacock MD Unavailable [phone] Lolita Colon MD Unavailable [phone] Allergies Active Allergy Reactions Criticality Noted Date [...] Diagnosed Date Atherosclerotic heart diseas e of [place] coronary artery without angina pectoris 07/15/2024 Other [...] Department Care Team Description 08/10/2024 9:30 AM [employer] Office Visit [facility] Surgery [address] [place] [address] [place] [id number] Gin Conte NP Status post panniculectomy [...] on file Legal Sex Female 1:45 AM [employer] Gender Identity Not on file Sexual Orientation Not on file Obstetrics History Last Filed Vital Signs Vital Sign Reading Time Taken Comments Blood Pressure 111/62 05/17/2024 7:35 AM [employer] Pulse 88 05/17/2024 8:20 AM [employer] Temperature 36.7 C (98 F) 05/17/2024 7:35 AM [employer] Respiratory Rate 18 05/17/2024 7:35 AM [employer] Oxygen Saturation 98% 05/17/2024 7:35 AM [employer] Inhaled Oxygen Concentration - - Weight 72 kg (158 lb 11.7 oz) 05/17/2024 6:13 AM [employer] Height 167.6 cm (5' 6 ) 05/17/2024 6:13 AM [employer] Body Mass Index 25.62 05/17/2024 6:13 AM [employer] Plan of Treatment Health Maintenance Due Date [...] this topic Medical Devices Implanted Type Area Optical Sales Associate Device Identifier Shelf Expiration Date Model / Serial / Lot Scratch Wireless Sealant Fibrin Patch Avenue Set Frozen Prefilled Syringe Artiss 10ml [id number] - [id number] - [id number] Implanted:Qty: 1 on 05/12/2024 by Russell Louie MD at [facility] N/A: Abdomen [facility] 07/29/2025 [id number] / [id number] / [id number] Procedures Procedure Name Priority Date/Time Associated Diagnosis Comments EGFR Routine 05/17/2024 3:23 AM [employer] HEPATITIS PANEL, ACUTE Timed 05/14/2024 1:34 PM [employer] LIPID PANEL Routine 07/30/2023 8:51 AM [employer] ALBUMIN CREATININE RATIO, URINE Routine 07/30/2023 8:51 AM [employer] from Last 3 Months or Most Recently Relevant to Health Maintenance Results * eGFR (05/17/2024 3:23 AM [employer]) eGFR >90 >=60 mL/min/1. 73 m2 Comment: [...] last reviewed 2021. Blood 05/17/2024 3:23 AM [employer] 05/17/2024 4:05 AM [employer] us Lolita Colon MD LAB BLOOD ORDERABLES Final Res ult ERICK VANCE ([place]) 1 [facility] Department [place] [address] * Hepatitis panel, acute Blood (05/14/2024 1:34 PM [employer]ARD[employer]) Hep A IgM Nonreactive Nonreactive Comment: Interpretive Data: If Hep A IgM Ab is reported as Equivocal, a new sample should be drawn in two weeks for testing. Current interpretive data was last revised on 19. Testing performed by: [facility], [address] [place] [address], [place]., [address] Hep B core IgM Nonreactive Nonreactive Kat VANCE ([place]) Comment: Interpretive Data If HepB Core IgM Ab is reported as Equivocal, a new sample should be drawn in two weeks for testing. Current interpretive data was last revised on 19. Testing performed by: [facility], [address] [place] [address], [place]., [address] Hep C Ab Nonreactive Nonreactive ERICK VANCE [...] last revised on 2019. Testing performed by: [facility], [address] [place] [address]., [address] HepBsAg Nonreactive Nonreactive ERICK VANCE ([place]) Comment:Testing performed by : [facility], [address] [place] [address]., [address] Blood 05/14/2024 1:34 PM [employer] 05/15/2024 9:46 AM [employer] Lolita Colon MD LAB MICROBIOLOGY - GENERAL ORD ERABLES Final Result ERICK VANCE ([place]) 1 [facility] Department [place] [address] * Albumin Creatinine Ratio, Urine (07/30/2023 8:51 AM [employer]) Albumin Ur <12.0 mg/L [facility] AM H ([place]) Comment: Interpretive Data No reference range established. Current interpretive data was last revised 2018. Testing performed by: [address] [address] Creatinine Ur 75.1 mg/dL ERICK VANCE ([place]) Comment: Interpretive Data No reference range established. Current interpretive data was last revised 2018. Testing performed by: [address] [address] Albumin Creatinine Ratio, Ur <16 1 - 29 mg/g ERICK VANCE ([place]) Comment:Testing performed by : [address] [address] Urine 07/30/2023 8:51 AM [employer] 07/30/2023 10:55 AM [employer] us Rocio Wu NP LAB URINE ORDERABLES Final R esult ERICK VANCE ([place]) 1 [facility] Department of Laboratories [place], [place] [id number] * Lipid panel (07/30/2023 8:51 AM [employer]) Cholesterol 91 30 - 199 mg/dL ERICK [...] ARGENTINA VANCE ([place]) Blood 07/30/2023 8:51 AM [employer] 07/30/2023 10:12 AM [employer] us Rocio Wu [employer] LAB BLOOD ORDERABLES Final R esult ERICK VANCE (SITKA) 1 [facility] Department [place] [address] from Last 3 Months or Most Recently Relevant to Health Maintenance Insurance [facility] MEDICARE ADVANTAGE IDPA [facility] MEDICARE ADVANTAGE IDPA Care Teams Hogshead Hooper Relationship Specialty Start Date End Date Henry Ruiz DO PCP - General Internal Medicine 12/09/21 Nicholas Peacock MD [address] [facility] [address] [place] [address] Surgeon Neurosurgery 02/19/22 Lolita Colon MD [address] [place] [address] [place] [address] Consulting Physician Internal Medicine 05/16/24
--- OUTSIDE RECORDS SUMMARY | 2024-10-21 02:49 | XMS_ITS | CONTINUITY OF CARE DOCUMENT ---
Author Name priscila, priscila Address Unknown Organization [facility] Address [address] [place] [address] Phone [phone] Care Team Providers Care Patient Attendant Name Role Phone Abelino Ny MD Unavailable WILLIAM MELENDEZ DO Unavailable [phone] WILLIAM MELENDEZ DO Unavailable [phone] PROBLEMS Condition Status Date Provider Notes HTN-02/06 [...] In-person encounter Office Visit Abelino Ny MD [facility] CHEST PAIN-04/2014 NUC NEG EF60% - 02/03 NUC ISCHEMIACHOLECYSTECTOM Y, HX OF MAY 2010GERD - In-person encounter Office Visit Abelino Ny MD [place] Bilateral leg Edema - In-person encounter Office Visit Cameron Ramírez MD [facility] - In-person encounter Office Visit Abelino Ny MD [facility] OBESITY- s/p lap band revision - In-person encounter Office Visit Abelino Ny MD [facility] - In-person encounter Office Visit Abelino Ny MD [facility] OBESITY- s/p lap band revision - In-person encounter Office Visit Abelino Ny MD [place] [facility] Family History of Hypertension: - In-person encounter Office Visit Abelino Ny MD [facility] - In-person encounter Office Visit Abelino Ny MD [facility] - In-person encounter Office Visit Abelino Ny MD [facility] PE, HX OFPREOPERATIVE CARDIOVASCULAR EXAMINATIONCAD-02/03 CATH NO CADDVT-09/07 SHIV DOP NEG - In-person encounter Office Visit Abelino Ny MD [facility] OBESITY- s/p lap band revision - In-person encounter Office Visit Abelino Ny MD [facility] - In-person encounter Office Visit Abelino Ny MD [facility] - In-person encounter Office Visit Abelino Ny MD [facility] POLYCYSTIC OVARIAN DISEASE REMOVED MAY 2010 - In-person encounter Office Visit Abelino Ny MD [facility] - In-person encounter Office Visit Abelino Ny MD [facility] - In-person encounter Office Visit Abelino Ny MD [facility] HTN-02/06 ECHO EF 60-06/04 ECHO EF 60CHEST PAIN-04/2014 NUC NEG EF60% - 02/03 NUC ISCHEMIA - In-person encounter Office Visit Gary Angeles MD [facility] VITAL SIGNS Date Observation Value Provider Body Mass Index (Ratio) 35.77 kg/m2 Manjeet Carcamote blood pressure, diastolic 70 mm[Hg] Kr isty Clinton blood pressure, systolic 110 mm[Hg] Kri sty Leonela oxygen saturation, oximetry 98 % Kena Leonela respiratory rate E&M 17 /min Kena Clinton pulse rate 82 /min Kena Clinton blood pressure, cuff size regular Kr alexandra Leonela weight E&M 215 [lb_av] Kena Clinton height E&M 65 [in_i] Kena Leonela Body Mass Index (Ratio) 33.11 kg/m2 Scottie Ny MD oxygen saturation, oximetry 99 % [facility] pulse [facility] 83 /min [facility] blood pressure, diastolic 70 mm[Hg] [...] MD blood pressure, diastolic 80 mm[Hg] [facility], systolic 110 mm[Hg] Kil sergio Kearney oxygen saturation, oximetry 98 % [facility] respiratory rate E&M 16 /min [facility] pulse rate 81 /min [facility] weight E&M 189 [lb_av] [facility] height E&M 65 [in_i] [facility] Body Mass Index (Ratio) 44.59 kg/m2 Scottie Ny MD blood pressure, cuff size large Ke rri Conchis blood pressure, diastolic 84 mm[Hg] Ke rri Conchis blood pressure, systolic 132 mm[Hg] Maura Balderrama oxygen saturation, oximetry 99 % Bebe Balderrama respiratory rate E&M 18 /min Bebe patel pulse rate 78 /min Bebe Arun [facility] weight E&M 268 [lb_av] Bebe Arun [facility] height E&M 65 [in_i] Bebe Arun lder [...] Shan hawa Taylor pulse rate 95 /min [facility] oxygen saturation, oximetry 98 % [facility] respiratory rate E&M 16 /min [facility] weight E&M 262.25 [lb_av] Krystian shaikh [...] patel weight E&M 281 [lb_av] Bebe Dias [facility] height E&M 65 [in_i] [facility]be [facility] blood pressure, diastolic, left arm 110 m m[Hg] Shanhawa Taylor blood pressure, systolic, left arm 159 mm [Hg] Shanhawa Taylor blood pressure, diastolic, right arm 137 mm[Hg] Shanhawa Taylor blood pressure, systolic, right arm 170 m m[Hg] Shanhawa Taylor blood pressure, diastolic 110 mm[Hg] Fleming Taylor blood pressure, systolic 159 mm[Hg] Shan de la cruz Taylor pulse rate 99 /min [facility] oxygen saturation, oximetry 96 % [facility] respiratory rate E&M 18 /min [facility] weight E&M 286 [lb_av] Shanhawa Taylor blood pressure, diastolic 95 mm[Hg] Fleming Taylor blood pressure, systolic 140 mm[Hg] Shan de la cruz Taylor pulse rate 85 /min [facility] oxygen saturation, oximetry 99 % [facility] respiratory rate E&M 16 /min [facility] weight E&M 272 [lb_av] Shanhawa Taylor blood pressure, diastolic, left arm 80 mm [Hg] Shanyehawa Taylor blood pressure, systolic, left arm 120 mm [Hg] [facility] Tyalor blood pressure, diastolic, right arm 88 m m[Hg] Shanhawa Taylor blood pressure, systolic, right arm 123 m m[Hg] [facility] oxygen saturation, oximetry 99 % [facility] blood pressure, diastolic 98 mm[Hg] Pimenteleadestiney [...] [employer] 3.5-5.1 sodium, serum 141 mmol/L [employer] 203-620 1797/09/ 28 creatinine, serum 0.7 mg/dL [facility] 0.5-0.9 carbon dioxide, venous blood 28 mmol/L [employer] 22-29 albumin, serum 4.7 g/dL [employer] 3.5-5.2 calcium, serum 9.7 mg/dL [facility] 8.6-10.2 aspartate aminotransferase (SGOT), serum 25 1/L [facility] 0-32 alkaline phosphatase, serum 85 1/L [facility] 40-130 alanine aminotransferase (SGPT), serum 27 1/L [facility] 0-33 protein, total, serum 7.8 g/dL [facility] 6.6-8.7 bilirubin, serum, total 0.3 mg/dL [facility] 0.0-1.2 urea nitrogen, blood 14 mg/dL [facility] 6-20 blood glucose, random 94 mg/dL [facility] 74-99 platelet count 255 10*3/mm3 [facility] hematocrit, blood 42.1 % [facility] international normalized ratio (INR) 1.0 [facility] D-dimer quantitative mcg/mL 372 ug/mL [facility] alanine aminotransferase (SGPT), serum 52 1/L [facility] aspartate aminotransferase (SGOT), serum 25 1/L [facility] creatinine, serum 1.07 mg/dL [facility] potassium, serum 3.2 mmol/L [facility] sodium, serum 139 mmol/L [facility] HISTORY OF MEDICATION USE Medication Status [...] every 4-6 hours NEEDED 07/17 - 07/27 [facility] VU METFORMIN HCL 500 MG ORAL TABLET [...] PARTICLES active 1 tab daily 07/26 Esteban Kearney HYDROCODONE-ACETAMI NOPHEN 7.5-650 MG ORAL TABLET completed [...] Ny MD social history reviewed E&M josefina ewmanog - no changes required Abelino Ny MD [...] alcohol use, average drinks per day none [facility] alcohol use no Jocelyn Block caffeine use, averag e drinks per day yes [facility] drug use none [facility] passive cigarette sm rodríguez exposure yes [facility] smoking status Never smoker [facility] social history E&M Marital Statu s: L shoaib with family/friends E thnicity: Smoking History: Naren ames has never smoked. Abelino Ny MD social history reviewed E&M revi ewed - no changes required Abelino Ny MD physical exercise, f requency, days per week no Esteban Gonzalez alcohol use, average drinks per day none Shelby Gonzalez alcohol use no Shelby Gonzalez caffeine use, averag e drinks per day yes Esteban Gonzalez drug use none Esteban Gonzalez passive cigarette sm rodríguez exposure yes [facility] Never smoker [facility] social history reviewed E&M revi ewed [...] L shoaib with family/friends E thnicity: James Wledon RN social history reviewed E&M reviewed James [...] and person. Mood and affect are normal. Abelion Ny MD assessment of judgme nt and [...] Payer name Policy type / Coverage type [place] [employer] party ID [employer] O [id number] HEALTHCARE AND FAMILY SERVICES Medicaid 0 [id number] ADVANCE DIRECTIVES Name Date DISCUSSED - NO [...] opted to wait and meet with a hydrodynamics professor prior to undergoing any further testing. Abelino Ny MD Cardiology:Blood pressure contro l is satisfactory. Abelino Ny MD Cardiology:Resolved. Abelino yoon MD Cardiology:Weight loss advised. Abelino Ny MD Cardiology Cameron Ramírez MD Cardiology Cameron Ramírez MD Cardiology Cameron Ramírez MD Cardiology Cameron Ramírez MD Cardiology Caemron Ramírez MD Cardiology:No recurrence. Allison Ny MD [...] She continues to follow Bariatric Surgery at [facility]. She continues to follow them and [...] up: O rders: S TR - Adenosine (99498) C omplete Echo (CPT-50980) Abelino Ny MD follow up: O rders: S TR - Adenosine (66269) C omplete Echo (CPT-63331) Abelino Ny MD follow up: H er updated medication list for this problem includes: Metoprolol Tartrate Tabs (Metoprolol tartrate tabs) ..... 1 tab twice Orders: S TR - Adenosine (72254) C omplete Echo (CPT-84809) Abelino Ny MD follow up: O rders: S TR - Adenosine (21790) C omplete Echo (CPT-39771) Abelino Ny MD follow up: H er updated medication list for this problem includes: Metoprolol Tartrate Tabs (Metoprolol tartrate tabs) ..... 1 tab twice Orders: S TR - Adenosine (86945) C omplete Echo (CPT-93108) Abelino Ny MD follow up: H er updated medication list for this problem includes: Nitrostat 0.4 Mg Subl (Nitroglycerin) ..... One tab. under tongue as needed. may repeat twice in 10 minutes. Metoprolol Tartrate Tabs (Metoprolol tartrate tabs) ..... 1 tab twice Orders: E KG (CPT-40246) S TR - Adenosine (06901) C omplete Echo (CPT-82720) Abelino Ny MD office visit: T he [...] clearanc e for lap band surgery in [place], [place]. will order an adenosine myoview and if normal ok for surgery. a lready on coreg. aGry Angelse MD Date Name TSH, 3RD GENERATION W/REFLEX [...] EKG Abelino Ny MD complet ed SNOMED-CT: 345935543 [id number] Current Medications Documented Abelino Ny MD completed SNOMED-CT: 269065091 Smoking Cessation Counseling Abelino Ny MD completed SNOMED-CT: 40064292 Physical Exam, Performed: Pulse Exam of Foot Abelino Ny MD completed EKG Abelino Ny MD complet ed SNOMED-CT: 255455590 400898 Current Medications Documented Abelino Ny MD completed EKGalen Ny MD complet ed EKG Abelino Ny MD complet ed EKGalen Ny MD complet ed ePrescribe - Check t his box if eRx is used Abelino Ny MD completed EKG Abelino Ny MD complet ed EKG Abelino Ny MD complet ed EKGalen Ny MD complet ed
--- OUTSIDE RECORDS SUMMARY | 2024-10-21 02:49 | XMS_ITS | Clinical Summary ---
Author Organization [facility] Address [address] [place] [address] Phone Care Team Providers Care Sports Management Internship Name Role Phone Henry Ruizian Primary Care [...] to complete this topic Insurance MEDICARE [facility] MEDICAID [place] Care Teams Sports Management Internship Relationship Specialty Start Date End Date Henry Ruiz DO [address] [facility] [place] [place] [address] PCP - General Internal Medicine 02/07/23
--- OUTSIDE RECORDS SUMMARY | 2024-10-21 02:49 | XMS_ITS | Data Portability ---
Author Organization [facility] Address [address] [place] [address] Assessment No assessment recorded. Plan of Treatment Reminders Order Date Submit Date Provider Last Modified By Organization Details Last Modified Time Details Appointments None recorded. Lab bacterial vaginosis + vaginitis panel, vaginal 2018 019 [facility], [address], [address], [place], [address], 9 14:13:24 HSV (1+2) DNA, qual, PCR, unspecifi ed specimen 2018 019 [facility], [address], [address], [place], [address], 9 14:13:25 urinalysi s, dipstick 2018 019 [facility]andler In-Office Order, Internal Use Only DO Not Attach Compendium DO Not Attach Compendium, Do Not Delete/merge, [id number] 9 10:35:16 hepatitis panel (A+B+C), acute, serum 2018 019 [facility], [address], [place], [address], 9 11:35:34 hepatitis B surface Ab, qualitati ve, serum 2018 019 [facility], [address], [address], [place], [address], 9 11:35:35 HIV 1+2 AB + HIV 1 p24 Ag, qualitati ve immunoass ay, serum 2018 [facility], [address] [address], [place], [address], 9 11:35:37 treponema pallidum screen, serum, reflex confirmat ion 2018 [facility]), Patient Can Go To The Location Of Their Choice, [id number] 9 11:35:36 HSV 2 IgG Ab, QN, IA, serum 2018 [facility]), Patient Can Go To The Location Of Their Choice, [address] 9 11:35:37 Referral None recorded. Procedures None recorded. Surgeries None recorded. Imaging US, breast, bilateral , w/ axilla 2018 [facility] (One Call Scheduling), [address] [place], [address], 9 09:50:37 MAMMO, diagnosti c, digital, bilateral 2018 [facility] (One Call Scheduling), [address] [place], [address], 9 17:04:55 US, pelvis, transabdo luis + transvagi nal 2018 [facility] (One Call Scheduling), [address] [place], [address], 9 12:30:59 Medication Orders Bicillin L-A 2,400,000 unit/4 mL intramusc ular syringe 2018 [id number], [address], [place], [id number], 9 09:44:25 fluconazo le 150 mg tablet 2018 019 [facility][id number], [address], [place], [id number], 9 17:49:55 Bicillin L-A 2,400,000 unit/4 mL intramusc ular syringe 2018 019 [facility][id number], [address], [place], [id number], 9 17:49:55 Diflucan 150 mg tablet 2018 019 [facility][id number], [address], [place], [id number], 9 10:36:10 Flagyl 500 mg tablet 2018 019 [facility] #[id number], [address], [place], [id number], 9 10:01:10 Patient TargetsNo targets recorded. Patient Instructions Encounter Date Encounter Id Patient Instructions Last Modified By Organization Details Last Modified Time 07/20/2018 [id number] bladder training: care instructions svuyyuru Not available [...] Instructions svuyyuru Not available 07/20/2018 11:49:54 08/02/2018 [id number] syphilis: care instructions mwasserman Not available 08/02/2018 17:49:55 08/09/2018 [id number] syphilis: care instructions fridayuru Not available 08/10/2018 09:44:25 08/16/2018 [id number] syphilis: care instructions svuyyuru Not available 08/16/2018 [...] 07/20/1907/20/2018 urina lysis , dipst ick Specific [place] 1.020 Not Available In-Off ice Order Internal Use Only DO Not Attach Compendium DO Not Attach Compendium, Do Not Delete/merge, [id number] 07/20/2018 10:34:17 07/20/1907/20/2018 urina lysis , dipst [...] Negati ve negati ve Not Available [facility] ([facility]) [address] [place], [address], 07/23/2018 11:35:34 07/20/1907/21/2018 hepat itis panel (A+B+ C), acute , serum HBsAg screen Negati ve negati ve Not Available [facility] ([facility]) [address] [place], [address], 07/23/2018 11:35:34 07/20/1907/21/2018 hepat itis panel (A+B+ C), acute , serum hep B core Ab, IgM Negati ve negati ve Not Available [facility] ([facility]) [address] [place], [address], 07/23/2018 11:35:34 07/20/1907/21/2018 hepat itis panel (A+B+ C), acute , serum hep C virus Ab 0.2 s/co_ ratio 0.0-0. 9 Negat curtis: < 0.8 Indet ermin ate: 0.8 - 0.9 Posit curtis: > 0.9 The [facility] recom mends that a posit curtis HCV antib sharad resul t be follo wed up with a HCV Nucle ic Acid Ampli ficat ion test (5507 13). Not Available [facility] ([facility]) [address] [place], [address], 07/23/2018 11:35:34 07/20/1907/21/2018 hepat itis B surfa ce Ab, quali tativ e, serum hep B surface Ab, qual Non Reacti ve Non React curtis: Incon siste nt with immun ity, less than 10 mIU/m L React curtis: Consi stent with immun ity, great er than 9.9 mIU/m L Not Available [facility] ([facility]) [address] [place], [address], 07/23/2018 11:35:35 07/20/1907/21/2018 trepo nema palli dum scree n, serum , refle x confi rmati on T pallidum antibodies Positi ve negati ve abnormal Not Available [facility] ([facility]) [address] [place], [address], 07/23/2018 11:35:35 07/20/1907/22/2018 trepo nema palli dum scree n, serum , refle x confi rmati on RPR Non Reacti ve non reacti ve Not Available [facility] ([facility]) [address] [place], [address], 07/23/2018 11:35:35 07/20/1907/23/2018 RPR (rapi d plasm [...] rmati on of the diagn osis by [facility] medic ally estab lishe d diagn ostic produ ct or proce dure. Not Available [facility] ([facility]) [address] [place], [address], 07/23/2018 11:35:36 07/20/19 19 07/21/2018 HIV 1+2 AB + HIV 1 p24 Ag, quali tativ e immun oassa y, serum HIV screen 4TH generation wrfx Non Reacti ve non reacti ve Not Available [facility] ([facility]) [address] [place], [address], 07/23/2018 11:35:37 07/20/1907/21/2018 HSV 2 IgG Ab, [...] quinton to HSV-2 . Not Available [facility] [address] [facility] [place], [address], 07/23/2018 11:35:37 07/20/19 19 07/22/2018 bacte rial vagin osis + vagin itis panel , vagin al trich vag by HONG Negati ve negati ve Not Available [facility] ([facility]) [address] [place], [address], 07/23/2018 14:13:24 07/20/19 19 07/22/2018 bacte rial vagin osis + vagin itis panel , vagin al chlamydia trachomatis, HONG Negati ve negati ve Not Available [facility] ([facility]) [address] [place], [address], 07/23/2018 14:13:24 07/20/19 19 07/22/2018 bacte rial vagin osis + vagin itis panel , vagin al neisseria gonorrhoeae, HONG Negati ve negati ve Not Available [facility] ([facility]) [address] [place], [address], 07/23/2018 14:13:24 07/20/1907/23/2018 bacte rial vagin osis [...] men for testi ng. Not Available [facility] ([facility]) [address] [place], [address], 07/23/2018 14:13:24 07/20/19 19 07/23/2018 bacte rial [...] men for testi ng. Not Available [facility] ([facility]) [address] [facility], [place], [address], 07/23/2018 14:13:24 07/20/19 19 07/23/2018 bacte rial [...] is not neces michael. Not Available [facility] ([facility]) [address] [facility], [place], [address], 07/23/2018 14:13:24 07/20/1907/23/2018 bacte rial vagin osis [...] men for testi ng. Not Available [facility] ([facility]) [address] [place], [address], 07/23/2018 14:13:24 07/20/1907/23/2018 bacte rial vagin osis [...] is not neces michael. Not Available [facility] ([facility]) [address] [facility], [place], [address], 07/23/2018 14:13:24 07/20/19 19 07/22/2018 HSV (1+2) DNA, qual, PCR, unspe cifie d speci men hsv 1 HONG Negati ve negati ve Not Available [facility] ([facility]) [address] [place], [address], 07/23/2018 14:13:25 07/20/1907/22/2018 HSV (1+2) DNA, qual, PCR, unspe cifie d speci men hsv 2 HONG Negati ve negati ve Not Available [facility] ([facility]) [address] [place], [address], 07/23/2018 14:13:25 07/26/1907/27/2018 trepo nema palli dum scree n, serum , refle x confi rmati on T pallidum antibodies Positi ve negati ve abnormal Not Available [facility] ([facility]) [address] [place], [address], 07/29/2018 10:36:24 07/26/19 19 07/28/2018 trepo nema palli dum scree n, serum , refle x confi rmati on RPR Non Reacti ve non reacti ve Not Available [facility] ([facility]) [address] [facility], [place], [address], 07/29/2018 10:36:24 07/26/1907/29/2018 RPR (rapi d plasm [...] rmati on of the diagn osis by [facility] medic ally estab lishe d diagn ostic produ ct or proce dure. Not Available [facility] ([facility]) [address] [facility], [place], [address], 07/29/2018 10:36:24 08/16/1908/17/2018 inhib in A + B panel , serum or plasm a inhibin A, ultrasensiti ve 8.8 pg/mL Menst rual Phase Early Folli cular <34.0 Late Folli cular <99.0 Perio vulat ory 8.0-2 33.0 MidLu teal <145. 0 End Lutea l <145. 0 Postm enopa usal <4.0 Not Available [facility] ([facility]) [address] [place], [address], 08/19/2018 16:16:37 08/16/19 19 08/19/2018 inhib in [...] rmati on of the diagn osis by [facility] medic ally estab lishe d diagn ostic produ ct or proce dure. Not Available [facility] ([facility]) [address] [facility], [place], [address], 08/19/2018 16:16:37 08/16/19 19 08/16/2018 zander (risk [...] mcnamara on surge ry. Not Available [facility] ([facility]) [address] [place], [address], 08/19/2018 16:16:37 08/16/19 19 08/16/2018 zander (risk [...] naima on surge ry. Not Available [facility] ([facility]) [address] [facility], [place], [address], 08/19/2018 16:16:37 08/16/19 19 08/16/2018 zander (risk [...] inter aleman pallavi . Not Available [facility] ([facility]) [address] [facility], [place], [address], 08/19/2018 16:16:37 08/16/19 19 08/17/2018 zander (risk [...] malig nant disea se. Not Available [facility] ([facility]) [address] [facility], [place], [address], 08/19/2018 16:16:37 08/16/19 19 08/18/2018 zander (risk [...] malig nant disea se. Not Available [facility] ([facility]) [address] [facility], [place], [address], 08/19/2018 16:16:37 08/16/19 19 08/18/2018 zander (risk of ovari an malig naima algor ithm score ), serum (zarina enopa usal) premenopausa l zander 0.64 see below Not Available [facility] ([facility]) [address] [facility], [place], [address], 08/19/2018 16:16:37 08/16/19 19 08/18/2018 zander (risk of ovari an malig naima algor ithm score ), serum (zarina enopa usal) postmenopaus al zander 0.95 see below Not Available [facility] ([facility]) [address] [facility], [place], [address], 08/19/2018 16:16:37 08/16/19 19 08/17/2018 carci noemb [...] the prese nce or absen ce of [facility]. Not Available [facility] ([facility]) [address] [facility], [place], [address], 08/19/2018 16:16:38 08/16/19 19 08/17/2018 afp (alph [...] the prese nce or absen ce of [facility]. This test is not inter preta ble in pregn ant femal es. Not Available [facility] ([facility]) [address] [facility], [place], [address], 08/19/2018 16:16:39 08/16/1908/17/2018 HCG, intac t + beta subun it, quant , serum or plasm a HCG,beta subunit,qnt, serum 3 mIU/m L Femal e (Non- pregn ant) 0 - 5 (Post menop ausal ) 0 - 8 Femal e (Preg nant) Weeks of Gesta tion 3 6 - 71 4 10 - 750 5 540 - 1836 6 291 - 70359 7 9763 -6815 63 8 64260 -4270 71 9 03079 -0054 10 10 73559 -4765 77 12 90277 -2106 12 14 80629 - 93144 15 05222 - 62951 16 0019 - 61474 17 7901 - 03070 18 9925 - 98078 Anthony ECLIA metho dolog y Not Available [facility] ([facility]) [address] [facility], [place], [address], 08/19/2018 16:16:39 08/16/19 19 08/17/2018 ldh, serum or plasm a LDH 179 IU/L 119-22 6 Not Available [facility] ([facility]) [address] [facility], [place], [address], 08/19/2018 16:16:40 11/05/19 15 11/04/2014 imagi ng/di agnos tic resul t No observ ation record ed. oajao Not Available 2014 23:27:59 11/20/19 15 11/18/2014 imagi ng/di agnos tic resul t No observ ation record ed. [facility] (Imaging) [address] [place], [address], 11/20/2014 16:46:46 12/21/19 15 12/19/2014 imagi ng/di agnos tic resul t No observ ation record ed. [facility] (Imaging) [address] [place], [address], 12/20/2014 09:16:41 12/27/19 15 12/19/2014 imagi ng/di agnos tic resul t No observ ation record ed. [facility] (Imaging) [address] [place], [address], 12/26/2014 09:10:49 09/12/19 16 09/12/2015 CT, sinus es No observ ation record ed. [facility] (Imaging) [address] [place], [address], 09/12/2015 20:14:41 08/02/19 19 08/02/2018 US, breas t, bilat eral, w/ axill a No observ ation record ed. [facility] [address] [place], [address], 08/03/2018 17:29:58 08/02/19 19 08/02/2018 US, breas t, bilat eral, w/ axill a No observ ation record ed. Not Available 2018 13:52:37 08/12/1908/02/2018 US, pelvi s, trans abdom inal + trans vagin al No observ ation record ed. [facility] ([facility] Sched[facility]) [address] [place], [address], 08/16/2018 15:28:22 Result Notes None recorded. Problems Name Problem SNOMED Code Status Onset Date Resolution Date Notes Provider Name and Address Organization Details Recorded Time Syphilis 39499927 Active 2018 Jyoti Moses MD Attn: Accounting, [address] [place], [address], [facility] 9 12:03:36 Diverticular disease 328943486 Active Crystal Mina MD Attn: Accounting, [address] [place], [address], [place] [facility] 5 16:44:18 Abdominal pain 11106789 Active Crystal Mina MD Attn: Accounting, [address] [place], [address], [place] [facility] 4 16:13:19 Gastroesopha geal reflux disease 601085697 Active Crystal Mina MD Attn: Accounting, [address] [place], [address], [facility] 4 16:13:19 Notes: I am just here for my follow up Problem Notes None recorded. Procedures Surgical History Date Name Laterality Status Provider Name and Address Organization Details Recorded Time endometrial ablation completed Chris Moses MD Attn: Accounting,[address] , [place], [address], [facility] 07/20/2018 09:47:46 bariatric operative procedure completed Jyoti Moses MD Attn: Accounting,[address] , [place], [address], [facility] 07/20/2018 10:23:16 Hysterectomy completed September [facility] 06/28/2014 15:32:38 Dilation and Curettage completed September [facility] 06/28/2014 15:32:38 Arthroscopic Surgery completed Avinash gentry [facility] 06/28/2014 15:32:38 Gastrointestinal Surgery completed September [facility] 06/28/2014 15:32:38 Knee Surgery completed September [facility] 06/28/2014 15:32:38 Imaging Results Imaging Date Name Status LastModified by Organization Details LastModified Time 11/04/2014 imaging/diagnostic result completed [facility] Information not available 11/05/2014 23:27:59 11/18/2014 imaging/diagnostic result completed [facility] (Imaging) [address] [place], [address], 11/20/2014 16:46:46 12/19/2014 imaging/diagnostic result completed [facility] ([facility]) [address] [place], [address], 12/20/2014 09:16:41 12/19/2014 imaging/diagnostic result completed [facility] (Im[facility]) [address] [place], [address], 12/26/2014 09:10:49 09/12/2015 CT, sinuses completed [facility] (Imaging) [address] [place], [address], 09/12/2015 20:14:41 08/02/2018 US, breast, bilateral, w/ axilla completed [facility] [address] [place], [address], 08/03/2018 17:29:58 08/02/2018 US, breast, bilateral, w/ axilla completed [email or web address] Information not available 08/04/2018 13:52:37 08/02/2018 US, pelvis, transabdominal + transvaginal completed [facility] ([facility] Sched[facility]) [address] [place], [address], 08/16/2018 15:28:22 Procedure Notes None recorded. Medical [...] Address Organization Details Last Updated DateTime 07/20/2018 23571.33 g 128 mm[Hg] 88 mm[Hg] Harpreet Quintero [place] [facility] 07/20/2018 09:11:34 Date Recorded Body weight Systolic blood pressure Diastolic blood pressure Provider Name and Address Organization Details Last Updated DateTime 08/16/2018 22763.33 g 126 mm[Hg] 88 mm[Hg] Harpreet Quintero [place] [facility] 08/16/2018 14:59:07 Date Recorded Body temperature Body height Body mass index (BMI) Heart rate Respiratory rate Body weight Systolic blood pressure Diastolic blood pressure Provider Name and Address Organization Details Last Updated DateTime 5 98 [degF] 170.18 cm 45.4 kg/m2 84 /min 20 /min 771087. 7873 g 140 mm[Hg] 88 mm[Hg] September GUERLINE Velasquez [facility] 5 16:26:30 Social History Question Answer Notes LastModified by Organizat ion Details LastModified Time Tobacco Smoking Status Never Smoker September GUERLINE Velasquez, [place] - [facility] 06/28/2014 15:32:39 Do You Have [...] Do You Use Protection During Sex? No [place] Information not available 07/20/2018 What Is Your Relationship Status? metropolitan [place] Information not available 07/20/2018 Seat Belts Used Routinely Yes [place] not available 07/20/2018 Are You Sexually Active? Yes [place] Information not available 07/20/2018 Smoke Alarm In Home Yes [place] Information not available 07/20/2018 How Much Tobacco Do You Smoke? No [email or web address] Information not available 08/16/2018 General Stress Level High [place] Information not available 07/20/2018 Do You Use Sunscreen Routinely? Yes [place] Information not available 07/20/2018 How Many Years Have You Smoked Tobacco? 0 [place] Information not available 07/20/2018 Sex: Unknown Functional Status Question Answer Note LastModified by Organizat ion Details LastModified Time What is your exercise level? Occasional [place] Information not available 07/20/2018 Mental Status None [...] Atrial Fibrillation N High Blood Pressure Y Thyroid Problems N Kidney or Bladder Problems N GI Problems N Depression N COPD N Blood Clots Y Skin Problems N Anemia N Heart Attack (AR) N Diabetes N Anxiety Disorder Y Muscle, Joint, or Bone Problems Y Seizures/Epilepsy [...] SNOMED-CT Code Diagnosis ICD10 Code Diagnosis Note [id number] MARIELOS Arreola (Adult Med) [address] [place] [address] 06/28/2014 15:15:04 06/28/2014 17:20:53 Abdominal pain 79716185 L mid abdominal pain in a 33y/o lady s/p lap band surgery, I will like to obtain a CT scan and proceed with a referral to a bariatric surgeon. Her weight gain may mean she needs her lapband adjusted. Labs were also ordered. She follows up with Dr. Hernandez (Reflexologist) and apparently had a FRANSISCO some time ago with multiple laparoscop ic surgeries, she has either one or both ovaries and she is on Metformin for PCOS Gastroesop hageal reflux disease [id number] General ex amination of patient 754709108 She has refused the Influenza vaccine, her 29lb weight gain despite lap-band surgery prompts the need for an evaluation by a bariatric surgeon locally, as she is unable to go back to [place]. I will initiate a referral [id number] Analisa Steiner (Adult Med) [address] [place] [address] 10/12/2014 15:52:14 10/12/2014 17:36:07 Diverticular disease [id number] Noted on CT, her normal labs were discussed [id number] MD Obdulia Kuo (REFRIGERATION SPECIALIST) [address] [place] [address] 07/20/2018 08:54:48 07/20/2018 17:04:55 Gynecologic examination 34906408 Z01.419 Age appropriat e counseling done. Venereal d isease screening 130539214 Z11.3 Z20.2 Pain in pelvis 59036138 R10.2 COUNSELED THOROUGHLY ABOUT IT. REVIEWED CT PELVIS FROM 04/27/18 - 7.5 CM LEFT ADNEXAL CYST. COUNSELED THOROUGHLY ABOUT IT. TVUS ORDERED. Cyst of ovary 27718703 N 83.[address] PELVIS FROM 04/27/18 - 7.5 CM LEFT ADNEXAL CYST. COUNSELED THOROUGHLY ABOUT IT. TVUS ORDERED. Bacterial vaginosis 4197 33250 N76.0 COUNSELED THOROUGHLY ABOUT IT. Breast lump 57327589 N63 .0 COUNSELED THOROUGHLY ABOUT IT. Morbid obesity 741606269 E66.01 Counseled About weight loss, diet and excercise. Advised patient to f/u with pipe fitter. Candidiasis of skin 4988 3006 B37.2 COUNSELED THOROUGHLY ABOUT IT. Female str ess incontinence 38746753 N39.3 COUNSELED THOROUGHLY ABOUT IT AND KEGEL EXCERCISES . SINCE ITS ONLY ONCE ENCOURAGE KEGEL EXCERCISES . [id number] Eusebia Steiner (REFRIGERATION SPECIALIST) [address] [place] [address] 0 08/02/2018 16:15:38 08/03/2018 10:32:07 Candidiasis of vagina 67424568 B37.3 Syphilis 73155107 A53.9 [id number] Eusebia Spainquyen Steiner (REFRIGERATION SPECIALIST) [address] [place] [address] 0 08/09/2018 17:10:05 08/10/2018 10:39:52 Syphilis 07437913 A53.9 [id number] MD Obdulia Kuo (REFRIGERATION SPECIALIST) [address] [place] [address] 08/16/2018 14:46:40 08/17/2018 13:27:00 Cyst of left ovary 7502028335 [id number] N83.202 D/W patient TVUS result. Counseled thoroughly about the ovarian cyst with heterogeno us areas. Gave patient orders sheet for tumor markers. Patient say she has appointmen t with [employer] oncologist . Syphilis 87907714 A53.9 Counseled about it. Patient say she [...] Name 10/12/2014 1 [place] Dory Barnes [id number] [facility] 10/12/2014 2 [place] WHEN [place] OR MEDIC[place] REPLACEMENT PRIMARY) Dory Barnes [id number] [facility] 07/20/2018 1 [place] Dory Barnes [id number] [facility] 07/20/2018 2 [place] WHEN [place] OR [place]IC[place] REPLACEMENT PRIMARY) Dory Johnsonll [id number] [facility] 08/02/2018 2 [place] WHEN [place] OR [place]IC[place] REPLACEMENT PRIMARY) Dory Barnes [id number] [facility] 08/02/2018 1 [place]UAL [place]IG[place] (MEDICARE - MEDICAID REPLACEMENT HMO) Dory Johnsonll [id number] [facility] 08/09/2018 2 [place] WHEN [place] OR MEDICARE REPLACEMENT PRIMARY) Dory Barnes [id number] [facility] 08/09/2018 1 [place] (MEDICARE - MEDICAID REPLACEMENT HMO) Dory Johnsonll [id number] [facility] 08/16/2018 2 [place] WHEN [place] OR MEDICARE REPLACEMENT PRIMARY) Dory Barnes [id number] [facility] 08/16/2018 1 [place] (MEDICARE - MEDICAID REPLACEMENT HMO) [facility] [id number] [facility] Notes [...] no dyspareunia Jyoti Moses MD Attn: Accounting,[address] [place], [address], [facility] 07/20/2018 12:30:02 08/16/2018 text/html Patient here to f/u on TVUS for pelvic pain. Patient denies any active vaginal bleeding today or vaginal discharge. Jyoti Moses MD Attn: Accounting,[address] [place], [address], [facility] 08/16/2018 15:33:39 OBGyn Episode Ob Episode Information Episode Created Date Number of Fetuses Patient Bloodtype Patient rh Status Prepregnancy Weight lbs Domestic Partner Domestic Partner Phone Father Name Financial Institution Branch Manager Status 07/20/19 19 1 CLOSED Fetus Data First Name Last Name Admitted to NICU Weight (g) Sex Living Outcome Pediatric Complications Fetus ID Race Codes Race Delivery Type 3572.03 7 F Full Term [id number] Vaginal Only Martir Calculation Initial Martir Date [...] Domestic Partner Domestic Partner Phone Father Name Financial Institution Branch Manager Status 07/20/19 19 1 CLOSED Fetus Data First Name Last Name Admitted to NICU Weight (g) Sex Living Outcome Pediatric Complications Fetus ID Race Codes Race Delivery Type 2834.95 M Prematur e [id number] Vaginal Only Martir Calculation Initial Martir Date [...] Domestic Partner Domestic Partner Phone Father Name Financial Institution Branch Manager Status 07/20/19 19 1 CLOSED Fetus Data First Name Last Name Admitted to NICU Weight (g) Sex Living Outcome Pediatric Complications Fetus ID Race Codes Race Delivery Type 3231.84 3 F Full Term [id number] Vaginal Only Martir Calculation Initial Martir Date [...]
[2024-10-21] MEDS: KETOROLAC 15 MG/ML VIAL (*BKC) IV PUSH (14:00)
[2024-10-21] MEDS: ACETAMINOPHEN 500 MG TABLET 1000 MG PO (14:00)
[2024-10-21] MEDS: LACTATED RINGERS 1,000 ML 30 ML IV CONT ×2 (14:00→16:45)
--- NOTE | 2024-10-21 15:00 | WPDANESEPPF ---
Anes - Initial Pre Proc Eval Procedure: Operation Date: 10/21/24 14:30 Proposed Procedures p Right Shoulder Arthroscopic Subacromial Decompression - Omar Edwards MD Date/Time: 10/21/24 15:00 Surgeon: Omar Edwards MD Pre Op Diagnosis: Rt Shoulder Rot Cuff Tendonitis Patient Data Age: 43 Gender: F Height: 1.69 m Weight: 68.2 kg Allergies Allergy/AdvReac Type Severity Reaction Status Date / Time NSAIDS (Non-Steroidal Allergy Weight Verified 10/19/24 10:34 Anti-Inflamma Loss Surgery morphine AdvReac Mild Itching Verified 10/19/24 10:34 Home Medications ?Medication ?Instructions ?Recorded ?Confirmed ?Type lactobacillus combination no.8 3 3,000 mmu cells PO DAILY 06/08/19 10/19/24 History billion cell capsule (Adult Probiotic) sennosides 8.6 mg-docusate sodium 1 tab-cap PO QHS 08/13/21 10/19/24 History 50 mg tablet biotin 5,000 mcg disintegrating 5,000 mcg PO DAILY 12/09/21 10/19/24 History tablet dedawkvefh-qimjbjdibetzf-paqvflop 1 cap PO TID PRN headache 12/09/21 10/19/24 History 50 mg-325 mg-40 mg capsule calcium 315 mg (as 1 tablet PO DAILY 12/09/21 10/19/24 History citrate)-vitamin D3 5 mcg (200 unit) tablet (Calcium Citrate + D) vitamin C 30 mg-zinc citrate 1.1 1 tablet PO .qd 12/09/21 10/19/24 History mg-elderberry 25 mg chewable tablet (Sambucus Elderberry) dexlansoprazole 30 mg 30 mg PO DAILY 05/16/22 10/19/24 History capsule,biphase delayed release ferrous sulfate 325 mg (65 mg 325 mg PO DAILY 11/18/22 10/19/24 History iron) tablet phytonadione (vitamin K1) 5 mg 5 mg PO DAILY 11/18/22 10/19/24 History tablet vitamin E (dl, acetate) 45 mg (100 45 mg PO DAILY 11/18/22 10/19/24 History unit) capsule linaclotide 145 mcg capsule 145 mcg PO DAILY PRN pain 08/06/23 10/19/24 History (Linzess) oxycodone 10 mg tablet 10 mg PO Q8H PRN pain 02/04/24 10/19/24 History erenumab-aooe 140 mg/mL 140 mg subcut MONTHLY #3 mL 04/19/24 10/19/24 Rx subcutaneous auto-injector (Aimovig Autoinjector) atorvastatin 40 mg tablet See Rx Instructions .Route 05/23/24 10/19/24 Rx .COMPLEX #90 tabs lisinopril 5 mg tablet 5 mg PO DAILY #90 tabs 06/06/24 10/19/24 Rx duloxetine 60 mg capsule,delayed See Rx Instructions .Route 08/08/24 10/19/24 Rx release .COMPLEX #90 caps pantoprazole 40 mg tablet,delayed See Rx Instructions .Route 09/26/24 10/19/24 Rx release .COMPLEX #90 tabs duloxetine 20 mg capsule,delayed 20 mg PO DAILY #90 caps 09/30/24 10/19/24 Rx release (Cymbalta) albuterol sulfate 90 mcg/actuation 2 puff inhalation QID PRN 10/11/24 10/19/24 Rx aerosol inhaler (Ventolin HFA) shortness of breath or wheezing #6.7 grams hydroxyzine HCl 10 mg tablet See Rx Instructions .Route 10/13/24 10/19/24 Rx .COMPLEX #60 tabs fluconazole 150 mg tablet 150 mg PO ONCE #1 tablet 10/14/24 10/19/24 Rx aspirin 81 mg tablet,delayed 81 mg PO BID 14 days #28 tabs 10/21/24 Rx release hydrocodone 5 mg-acetaminophen 325 1 - 2 tablet PO Q4-6H PRN pain 7 10/21/24 Rx mg tablet days #30 tabs Patient hx anesthesia problems: none Family hx anesthesia problems: none Results Review: All pre-operative results and documents have been reviewed as part of the pre-operative evaluation. [facility] Past Medical History Medical History Anaphylactic reaction Hyperlipidemia Hypertension Brain aneurysm Right knee pain Tumors Hemorrhoids Heartburn Depression History of blood clots Allergies Migraine headache Herniated disc Arthritis Diarrhea Constipation Pneumonia Chronic bronchitis Asthma HTN (hypertension) Chicken pox Hernia Ovarian mass removed Surgical History Surgical History History of brain surgery History of knee surgery both H/O toe surgery 04/12/2021 H/O hernia repair 04/2022 hernia repair stomach History of removal of laparoscopic gastric banding device Family History Family History Sibling Hypertension Mother Hypertension History of varicose veins Gout Father No problems noted. Other Diabetes mellitus Family history of allergic disorder Family history of malignant neoplasm of male breast Social History Social History Smoking status: Never smoker Second hand tobacco smoke exposure: Yes Alcohol intake: former Substance use: current Substance use type: opiates Last use: for chronic back pain Do You Feel Safe in your Home?: Yes Lack of Transportation: YES Lack of Food: Never True Current Housing: I Have Housing Concerned About Future Housing: No Difficulty Paying Gas/Electric Bills: Decline to Answer Difficulty Paying for Meds: Decline to Answer Currently Unemployed: No Education: Associate Degree Difficulty w/ Childcare or Family Care: No Living arrangements: with family Occupation/Education: unemployed 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 Informed Consent: The patient's anesthetic plan and its attendant risks and benefits were discussed with the patient/family/POA. Questions were solicited and answers provided to the satisfaction of the patient/family/POA.
--- NOTE | 2024-10-21 15:13 | WPDHPUPDATE1 ---
History and Physical Update Update Date/Time: 10/21/24 15:13 History and Physical has been reviewed, including an updated exam of the patient. There are NO changes in the patient's condition. Risks, benefits, and alternatives have been discussed and questions answered. Patient agrees to proceed with procedure.
[2024-10-21] MEDS: BUPIVACAINE/EPINEPHRINE 0.5% 30 ML VIAL INFILTRATE (15:27)
[2024-10-21] MEDS: ceFAZolin 2 GM/D5W 50 ML 2 GM/50 ML BAG IVPB (15:27)
[2024-10-21] MEDS: EPINEPHrine HCL INJ 1 MG/ML AMPUL IRRIGATION (16:09)
[2024-10-21] MEDS: fentaNYL CITRATE INJ (*CRX) 100 MCG/2 ML VIAL 25 MCG IV PUSH ×8 (17:05→17:32)
--- NOTE | 2024-10-21 17:13 | W.PM.PROC2 ---
Procedure Note - Detailed Date of Procedure 10/21/24 Pre-op Diagnosis Rt Shoulder Rot Cuff Tendonitis Post-op Diagnosis Other (Right shoulder impingement syndrome with rotator cuff tendinitis and low-grade partial articular rotator cuff tear) Procedure Performed Right shoulder arthroscopic debridement with subacromial decompression Surgeon Omar Edwards MD Floor Press Operator Erika Rivers PA-C Anesthesia General Findings Low-grade articular tearing less than 15% observed at the posterior supraspinatus. Gentle debridement performed. The remaining tendon appeared healthy. The remaining joint tissues appeared normal. No arthritis. The subacromial space had proliferative bursitis. The anterolateral acromion was treated with acromioplasty. Description of Procedure Preoperative antibiotics were given. The patient was brought to the operating room. Careful positioning in the beach chair was accomplished. The head neck were carefully positioned. A small bump was placed under the shoulder. The shoulder was prepped and draped in the usual sterile fashion. Examination under anesthesia performed. There were no abnormal findings. No evidence of contracture. Standard posterior and anterior arthroscopic portals were established. The glenohumeral joint was carefully inspected. The cartilage was normal. The labrum was normal other than a normal Bagley complex and minimal fraying type 1 at the superior labrum. Rotator cuff posterior at the supraspinatus had a low-grade less than 15% tearing. This gentle frayed area was treated with debridement. The remaining tissue was well attached and without significant tissue degeneration. This area of the tendon was marked with a spinal needle and a PDS suture. Attention was turned to the subacromial space. The bursa was fairly proliferative. A complete bursectomy was performed. The marked area appeared very normal. There was no bursal side tearing although the tendon did feel and appears swollen. The acromion was clearly visualized. The coracoacromial ligament was released. Careful acromioplasty was performed. Bone was removed with the arthroscopic bur. Loose bone fragments were carefully irrigated from the joint. The arthroscopic instruments were removed. The wounds were closed with interrupted 3-0 Monocryl suture followed by Steri-Strips. A sterile dressing was applied with a sling. The patient was extubated and brought to the recovery room in stable condition. There were no complications. Estimated Blood Loss 10 Drains No Packing No Pathology None sent Complications No immediate complications Condition Stable Disposition PACU [facility] [place] Billing Surgery - Charge Forward: Surgery Billing
[2024-10-21] MEDS: HYDROmorphone HCL INJ (*CRX) 1 MG/ML SYR 0.5 MG IV PUSH ×3 (17:34→17:52)
[2024-10-21] MEDS: oxyCODONE HCL (*CRX) 5 MG TAB IR PO (18:15)
== END 2024-10-21 18:50 | disposition home or self-care (01) ==
PROVIDERS: PCP Internal Medicine; Visit Provider Orthopaedic Surgery
PROC: (CPT 29805; principal; 2024-10-21 14:30)
DX: M75.81 Other shoulder lesions, right shoulder (principal); M75.31 Calcific tendinitis of right shoulder; M75.111 Incomplete rotator cuff tear or rupture of right shoulder, not specified as traumatic; E78.5 Hyperlipidemia, unspecified; I10 Essential (primary) hypertension; D64.9 Anemia, unspecified; J45.909 Unspecified asthma, uncomplicated; F32.A Depression, unspecified; J42 Unspecified chronic bronchitis; Z79.891 Long term (current) use of opiate analgesic; Z79.51 Long term (current) use of inhaled steroids; Z79.82 Long term (current) use of aspirin; Z98.890 Other specified postprocedural states; Z98.84 Bariatric surgery status; Z86.79 Personal history of other diseases of the circulatory system; Z80.3 Family history of malignant neoplasm of breast
CPT/HCPCS: 29822; A4565; A9270; J0171; J0690; J1100; J1171; J1885; J2250; J2405; J2704; J3010; J7120

== ENCOUNTER 2025-06-25 10:06 | Outpatient (CLI) | payer MEDICARE, MEDICAID, SELFPAY ==
--- NOTE | ~2025-06-25 | MR_ITS ---
EXAMINATION: MR knee LT wo con DATE: 06/25/2025 11:11 INDICATION: Left knee pain TECHNIQUE: Magnetic resonance imaging (MRI) of the left knee was performed without intravenous contrast. Sequences included coronal PD-weighted FSE, coronal PD-weighted FS FSE, sagittal T2-weighted FSE, sagittal PD-weighted FS FSE and axial PD weighted fat saturated FSE. COMPARISON: Left knee radiographs dated 11/28/2023 and MRI dated 05/28/2019 FINDINGS: Medial compartment: Medial meniscus is normal. Small deep chondral ulceration involving greater than 50% of the cartilage thickness but without degenerative subchondral changes extending 8 mm AP and 3 mm left to right at the anterior weightbearing medial femoral condyle. There is a 4 mm diameter blisterlike region of linear fluid signal intensity delamination along the bone chondral interface at the lateral side of the junction of the anterior and central weightbearing medial femoral condyle. Cartilage along the medial tibial plateau is relatively preserved. Lateral compartment: Lateral meniscus is normal. Articular cartilage is normal. Patellofemoral compartment: There is deep chondral ulceration and fissuring with underlying cortical irregularity and mild subarticular edema-like signal change extending across the central aspect of the lateral patellar facet and apical ridge. Additional deep chondral ulceration with cortical irregularity and subarticular edema-like signal change extending from the superolateral margin of the lateral patellar facet obliquely to the inferomedial aspect of the lateral trochlea along the inferior trochlear groove. Both the patellar and trochlear regions of high-grade chondral malacia progressed since the prior study. Ligaments and tendons: Anterior and posterior cruciate ligaments are normal. The medial collateral ligament and fibular collateral ligament complex are normal. The extensor mechanism is normal. The visualized medial and lateral hamstring tendons as well as the iliotibial band are normal. Fluid: Physiologic amount of fluid in the joint space. No loose osteochondral bodies identified. Moderate sized Osorio's cyst extending 6 cm craniocaudally and measuring up to 2.4 x 0.8 cm maximal transaxial dimensions. Osseous/other: Bone alignment is normal. No fracture or pathologic marrow replacing process. IMPRESSION: 1. 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 2. Mild osteoarthritis in medial compartment with new regions of moderate grade chondromalacia along the weightbearing medial femoral condyle. 3. Moderate-sized Osorio's cyst. Reviewed, dictated and finalized at location A. 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 Mild to moderate osteoarthritis in the patellofemoral compartment with progr ession of high-grade chondromalacia at the lateral patellar facet and lateral t rochlea. 2. Mild osteoarthritis in medial compartment with new regions of moderate grade chondromalacia along the weightbearing medial femoral condyle. 3. Moderate-sized Osorio's cyst.
== END 2025-06-25 10:07 | disposition home or self-care (01) ==
PROVIDERS: PCP Internal Medicine; Visit Provider Orthopaedic Surgery
DX: M17.12 Unilateral primary osteoarthritis, left knee (principal); M94.262 Chondromalacia, left knee; M71.22 Synovial cyst of popliteal space [Baker], left knee
CPT/HCPCS: 73721